=== PATIENT | female | born 1965 | race Caucasian/White ===

== ENCOUNTER 2016-08-27 | Inpatient (IN) | END 2017-08-26 23:59 | disposition still patient (30) | DRG 133 | DX: J96.10 Chronic respiratory failure, unspecified whether with hypoxia or hypercapnia (principal); G93.1 Anoxic brain damage, not elsewhere classified; R40.3 Persistent vegetative state; J18.9 Pneumonia, unspecified organism; Z93.0 Tracheostomy status; Z93.1 Gastrostomy status; N39.0 Urinary tract infection, site not specified; K27.9 Peptic ulcer, site unspecified, unspecified as acute or chronic, without hemorrhage or perforation; B95.61 Methicillin susceptible Staphylococcus aureus infection as the cause of diseases classified elsewhere; I25.10 Atherosclerotic heart disease of native coronary artery without angina pectoris; Z86.74 Personal history of sudden cardiac arrest; F19.21 Other psychoactive substance dependence, in remission; K59.00 Constipation, unspecified; G40.909 Epilepsy, unspecified, not intractable, without status epilepticus; M24.50 Contracture, unspecified joint ==

== ENCOUNTER 2017-08-27 | Inpatient (IN) | payer MEDICAID ==
[~2017-08-27] VITALS: Ht 160 cm; Wt 69.4 kg
[2017-08-28 08:00] VITALS: BP 120/79
[2017-08-28] MEDS ORDERED: CALMOSEPTINE 113 GM OINTMENT TP PRN (12:00)
[2017-08-28] MEDS ORDERED: ACETAMINOPHEN 650 MG/20 ML UDC- SA PATIENTS-PAIN ONLY GT PRN ×2 (12:00)
[2017-08-28] MEDS ORDERED: HYDROGEN PEROXIDE 3% TP PRN (12:00)
[2017-08-28] MEDS ORDERED: ALBUTEROL SULFATE 2.5 MG/3 ML NEBU NEB SCH (15:30)
[2017-08-28] MEDS: IPRATROPIUM BROMIDE 0.5 MG/2.5 ML NEBU NEB SCH ×3 (15:49→23:00)
[2017-08-28] MEDS: ALBUTEROL SULFATE 2.5 MG/3 ML NEBU NEB SCH ×3 (15:58→23:00)
[2017-08-28] MEDS: BUDESONIDE 0.5 MG/2 ML NEBU NEB SCH (19:50)
[2017-08-28] MEDS: COD LIVER OIL/ZINC OXIDE OINT 113 GM TUBE TP SCH (21:22)
[2017-08-28] MEDS: CALMOSEPTINE 113 GM OINTMENT TP SCH (21:22)
[2017-08-28] MEDS: NUTRISOURCE FIBER 4 GM PACKET GT SCH (21:22)
[2017-08-28] MEDS: ATORVASTATIN 10 MG TABLET GT SCH (21:22)
[2017-08-28] MEDS: CALCIUM CARBONATE 500 MG TABLET GT SCH (21:22)
[2017-08-28] MEDS: HYDROGEN PEROXIDE 3% 118 ML BOTTLE TP SCH (21:22)
[2017-08-28] MEDS: BACLOFEN 10 MG TABLET GT SCH (21:23)
[2017-08-29 00:10] VITALS: BP 102/66
[2017-08-29] MEDS: IPRATROPIUM BROMIDE 0.5 MG/2.5 ML NEBU NEB SCH ×6 (03:11→22:40)
[2017-08-29] MEDS: ALBUTEROL SULFATE 2.5 MG/3 ML NEBU NEB SCH ×6 (03:11→22:40)
[2017-08-29] MEDS: CHOLECALCIFEROL 1,000 UNIT TABLET GT SCH (06:20)
[2017-08-29] MEDS: BACLOFEN 10 MG TABLET GT SCH ×3 (06:20→21:56)
[2017-08-29] MEDS: BUDESONIDE 0.5 MG/2 ML NEBU NEB SCH ×2 (07:07→19:42)
[2017-08-29 08:00] VITALS: BP 122/78
[2017-08-29] MEDS: MIRALAX 17 GM POWD.PACK GT SCH (09:00)
[2017-08-29] MEDS: NUTRISOURCE FIBER 4 GM PACKET GT SCH ×2 (09:00→21:54)
[2017-08-29] MEDS: NYSTATIN CREAM 30 GM TUBE TP SCH (09:00)
[2017-08-29] MEDS: CALMOSEPTINE 113 GM OINTMENT TP SCH ×2 (09:00→21:55)
[2017-08-29] MEDS: COD LIVER OIL/ZINC OXIDE OINT 113 GM TUBE TP SCH ×2 (09:00→21:55)
[2017-08-29] MEDS: HYDROGEN PEROXIDE 3% 118 ML BOTTLE TP SCH ×2 (09:00→21:56)
[2017-08-29] MEDS: CALCIUM CARBONATE 500 MG TABLET GT SCH ×2 (09:00→21:55)
[2017-08-29] MEDS: ATORVASTATIN 10 MG TABLET GT SCH (21:54)
[2017-08-29] MEDS: MULTIVITS W-FE,OTHER MIN 15 ML UDC GT SCH (21:55)
[2017-08-30] MEDS: IPRATROPIUM BROMIDE 0.5 MG/2.5 ML NEBU NEB SCH ×6 (03:16→22:46)
[2017-08-30] MEDS: ALBUTEROL SULFATE 2.5 MG/3 ML NEBU NEB SCH ×6 (03:16→22:46)
[2017-08-30] MEDS: BACLOFEN 10 MG TABLET GT SCH ×3 (05:05→22:00)
[2017-08-30] MEDS: CHOLECALCIFEROL 1,000 UNIT TABLET GT SCH (06:37)
[2017-08-30 08:00] VITALS: BP 117/85
[2017-08-30] MEDS: BUDESONIDE 0.5 MG/2 ML NEBU NEB SCH ×2 (08:02→20:11)
[2017-08-30] MEDS: CALCIUM CARBONATE 500 MG TABLET GT SCH ×2 (09:48→20:56)
[2017-08-30] MEDS: HYDROGEN PEROXIDE 3% 118 ML BOTTLE TP SCH ×2 (09:48→20:56)
[2017-08-30] MEDS: MIRALAX 17 GM POWD.PACK GT SCH (09:48)
[2017-08-30] MEDS: NYSTATIN CREAM 30 GM TUBE TP SCH (09:48)
[2017-08-30] MEDS: NUTRISOURCE FIBER 4 GM PACKET GT SCH ×2 (09:48→20:56)
[2017-08-30] MEDS: CALMOSEPTINE 113 GM OINTMENT TP SCH ×2 (09:48→20:56)
[2017-08-30] MEDS: COD LIVER OIL/ZINC OXIDE OINT 113 GM TUBE TP SCH ×2 (09:48→20:56)
--- NOTE | 2017-08-30 16:03 | NUR ---
JO-ANN spoke with Karishma at Dr. Tariq's office [phone] and scheduled patient's annual eye exam for 09/10/2017.
[2017-08-30] MEDS: FIBERSOURCE HN 1000ML LIQUID GT PRN (20:56)
[2017-08-30] MEDS: ATORVASTATIN 10 MG TABLET GT SCH (20:56)
[2017-08-30 23:37] VITALS: BP 128/81
[2017-08-31] MEDS: IPRATROPIUM BROMIDE 0.5 MG/2.5 ML NEBU NEB SCH ×6 (02:30→22:50)
[2017-08-31] MEDS: ALBUTEROL SULFATE 2.5 MG/3 ML NEBU NEB SCH ×6 (02:30→22:50)
[2017-08-31] MEDS: BACLOFEN 10 MG TABLET GT SCH ×3 (05:39→21:28)
[2017-08-31] MEDS: CHOLECALCIFEROL 1,000 UNIT TABLET GT SCH (05:39)
[2017-08-31] MEDS: BUDESONIDE 0.5 MG/2 ML NEBU NEB SCH ×2 (07:56→19:37)
[2017-08-31 08:00] VITALS: BP 104/70
[2017-08-31] MEDS: MIRALAX 17 GM POWD.PACK GT SCH (08:53)
[2017-08-31] MEDS: NUTRISOURCE FIBER 4 GM PACKET GT SCH ×2 (08:53→21:13)
[2017-08-31] MEDS: CALCIUM CARBONATE 500 MG TABLET GT SCH ×2 (08:53→21:13)
[2017-08-31] MEDS: HYDROGEN PEROXIDE 3% 118 ML BOTTLE TP SCH ×2 (08:54→21:13)
[2017-08-31] MEDS: COD LIVER OIL/ZINC OXIDE OINT 113 GM TUBE TP SCH ×2 (08:54→21:13)
[2017-08-31] MEDS: NYSTATIN CREAM 30 GM TUBE TP SCH (08:54)
[2017-08-31] MEDS: CALMOSEPTINE 113 GM OINTMENT TP SCH ×2 (08:54→21:13)
[2017-08-31 20:34] VITALS: BP 113/66
[2017-08-31] MEDS: ATORVASTATIN 10 MG TABLET GT SCH (21:13)
[2017-08-31] MEDS: MULTIVITS W-FE,OTHER MIN 15 ML UDC GT SCH (21:13)
[2017-09-01] MEDS: ALBUTEROL SULFATE 2.5 MG/3 ML NEBU NEB SCH ×6 (03:17→22:55)
[2017-09-01] MEDS: IPRATROPIUM BROMIDE 0.5 MG/2.5 ML NEBU NEB SCH ×6 (03:17→22:55)
[2017-09-01] MEDS: BACLOFEN 10 MG TABLET GT SCH ×3 (05:32→21:41)
[2017-09-01] MEDS: CHOLECALCIFEROL 1,000 UNIT TABLET GT SCH (05:33)
[2017-09-01] MEDS: FIBERSOURCE HN 1000ML LIQUID GT PRN (05:39)
[2017-09-01 08:00] VITALS: BP 124/70
[2017-09-01] MEDS: BUDESONIDE 0.5 MG/2 ML NEBU NEB SCH ×2 (08:20→20:05)
[2017-09-01] MEDS: CALMOSEPTINE 113 GM OINTMENT TP SCH ×2 (09:00→21:41)
[2017-09-01] MEDS: NYSTATIN CREAM 30 GM TUBE TP SCH (09:00)
[2017-09-01] MEDS: COD LIVER OIL/ZINC OXIDE OINT 113 GM TUBE TP SCH ×2 (09:00→21:41)
[2017-09-01] MEDS: MIRALAX 17 GM POWD.PACK GT SCH (09:00)
[2017-09-01] MEDS: HYDROGEN PEROXIDE 3% 118 ML BOTTLE TP SCH ×2 (09:00→21:41)
[2017-09-01] MEDS: NUTRISOURCE FIBER 4 GM PACKET GT SCH ×2 (09:00→21:40)
[2017-09-01] MEDS: CALCIUM CARBONATE 500 MG TABLET GT SCH ×2 (09:00→21:40)
[2017-09-01 20:32] VITALS: BP 110/76
[2017-09-01] MEDS: ATORVASTATIN 10 MG TABLET GT SCH (21:40)
[2017-09-02] MEDS: IPRATROPIUM BROMIDE 0.5 MG/2.5 ML NEBU NEB SCH ×6 (04:35→22:50)
[2017-09-02] MEDS: ALBUTEROL SULFATE 2.5 MG/3 ML NEBU NEB SCH ×6 (04:35→22:50)
[2017-09-02] MEDS: CHOLECALCIFEROL 1,000 UNIT TABLET GT SCH (06:06)
[2017-09-02] MEDS: BACLOFEN 10 MG TABLET GT SCH ×3 (06:06→22:24)
[2017-09-02 08:00] VITALS: BP 120/74
[2017-09-02] MEDS: BUDESONIDE 0.5 MG/2 ML NEBU NEB SCH ×2 (08:11→20:04)
[2017-09-02] MEDS: COD LIVER OIL/ZINC OXIDE OINT 113 GM TUBE TP SCH ×2 (09:59→21:00)
[2017-09-02] MEDS: MIRALAX 17 GM POWD.PACK GT SCH (09:59)
[2017-09-02] MEDS: CALCIUM CARBONATE 500 MG TABLET GT SCH ×2 (09:59→21:00)
[2017-09-02] MEDS: NUTRISOURCE FIBER 4 GM PACKET GT SCH ×2 (09:59→21:00)
[2017-09-02] MEDS: HYDROGEN PEROXIDE 3% 118 ML BOTTLE TP SCH ×2 (09:59→21:00)
[2017-09-02] MEDS: CALMOSEPTINE 113 GM OINTMENT TP SCH ×2 (09:59→21:00)
[2017-09-02 20:24] VITALS: BP 102/67
[2017-09-02] MEDS: MULTIVITS W-FE,OTHER MIN 15 ML UDC GT SCH (21:00)
[2017-09-02] MEDS: ATORVASTATIN 10 MG TABLET GT SCH (21:00)
[2017-09-03] MEDS: ALBUTEROL SULFATE 2.5 MG/3 ML NEBU NEB SCH ×6 (03:10→22:41)
[2017-09-03] MEDS: IPRATROPIUM BROMIDE 0.5 MG/2.5 ML NEBU NEB SCH ×6 (03:10→22:41)
[2017-09-03] MEDS: BACLOFEN 10 MG TABLET GT SCH ×3 (06:17→22:10)
[2017-09-03] MEDS: CHOLECALCIFEROL 1,000 UNIT TABLET GT SCH (06:17)
[2017-09-03] MEDS: BUDESONIDE 0.5 MG/2 ML NEBU NEB SCH ×2 (07:07→20:01)
[2017-09-03 08:00] VITALS: BP 105/66
[2017-09-03] MEDS: MIRALAX 17 GM POWD.PACK GT SCH (09:00)
[2017-09-03] MEDS: CALCIUM CARBONATE 500 MG TABLET GT SCH ×2 (09:48→21:00)
[2017-09-03] MEDS: CALMOSEPTINE 113 GM OINTMENT TP SCH ×2 (09:48→21:00)
[2017-09-03] MEDS: NUTRISOURCE FIBER 4 GM PACKET GT SCH ×2 (09:48→21:00)
[2017-09-03] MEDS: COD LIVER OIL/ZINC OXIDE OINT 113 GM TUBE TP SCH ×2 (09:48→21:00)
[2017-09-03] MEDS: HYDROGEN PEROXIDE 3% 118 ML BOTTLE TP SCH ×2 (09:48→21:00)
--- NOTE | 2017-09-03 14:00 | NUR ---
NEW ORDER FROM GARETH Goode CARRIED OUT.
--- NOTE | 2017-09-03 15:05 | NUR ---
SEEN BY GARETH JETER.
[2017-09-03] MEDS: NYSTATIN CREAM 30 GM TUBE TP SCH (17:29)
[2017-09-03] MEDS: ATORVASTATIN 10 MG TABLET GT SCH (21:00)
[2017-09-04 01:28] VITALS: BP 113/73
[2017-09-04] MEDS: ALBUTEROL SULFATE 2.5 MG/3 ML NEBU NEB SCH ×6 (02:40→22:42)
[2017-09-04] MEDS: IPRATROPIUM BROMIDE 0.5 MG/2.5 ML NEBU NEB SCH ×6 (02:40→22:41)
[2017-09-04] MEDS: CHOLECALCIFEROL 1,000 UNIT TABLET GT SCH (06:45)
[2017-09-04] MEDS: BACLOFEN 10 MG TABLET GT SCH ×3 (06:45→21:44)
[2017-09-04] MEDS: BUDESONIDE 0.5 MG/2 ML NEBU NEB SCH ×2 (06:55→20:24)
--- NOTE | 2017-09-04 07:30 | NUR ---
SEEN BY FRANCIA MEADE N.P. AND WITH NNO.
[2017-09-04] MEDS: COD LIVER OIL/ZINC OXIDE OINT 113 GM TUBE TP SCH ×2 (09:30→21:44)
[2017-09-04] MEDS: CALCIUM CARBONATE 500 MG TABLET GT SCH ×2 (09:30→21:44)
[2017-09-04] MEDS: NUTRISOURCE FIBER 4 GM PACKET GT SCH ×2 (09:30→21:44)
[2017-09-04] MEDS: HYDROGEN PEROXIDE 3% 118 ML BOTTLE TP SCH ×2 (09:30→21:44)
[2017-09-04] MEDS: CALMOSEPTINE 113 GM OINTMENT TP SCH ×2 (09:30→21:44)
[2017-09-04] MEDS: NYSTATIN CREAM 30 GM TUBE TP SCH (09:31)
[2017-09-04 11:16] VITALS: BP 118/73
--- NOTE | 2017-09-04 13:07 | NUR ---
Pharmacy Update from Today's 09/04/17 IDT Meeting: VS: Temp 98.3 BP 115/76 HR 73 LABS: (from 02/20/17, no new) Wbc 5.4H/H 13.5/40.8Plt 139 Na 141K 3.5Cl 104CO2 31BUN/SCr BS 127 MEDICATION USE REVIEWED: > Pt not on any anti-psych or anti-seizure medications > PRN MED USAGE: (Dec) Tylenol for pain used x 0 Tylenol for temp used x 0 NEW ORDERS NOTED: > Clotrimazole cream for left buttocks rash 07/29 x 21 days > Nystatin cream for left ear fungal rash x 7 days starting 08/26 > Miralax PRN d/c'd Pt was reviewed and discussed in depth, no medication concerns or issues reported at this time, will continue to follow
--- NOTE | 2017-09-04 14:30 | NUR ---
SEEN BY GARETH JETER.
[2017-09-04] MEDS: FIBERSOURCE HN 1000ML LIQUID GT PRN (15:15)
--- NOTE | 2017-09-04 15:25 | NUR ---
INTERDISCIPLINARY PLAN OF CARE CONFERENCE was held today. Patient's family was unable to attend the meeting due to living [id number]. Dr. Underwood and the Interdisciplinary Team reviewed the current plan of care in detail. RN provided updates on patient's medical condition. No major changes were reported at this time. See RN IDT conference notes. See also all other disciplines IDT notes and physician's progress notes for additional details.
[2017-09-04 20:00] VITALS: BP 114/73
[2017-09-04] MEDS: MULTIVITS W-FE,OTHER MIN 15 ML UDC GT SCH (21:44)
[2017-09-04] MEDS: ATORVASTATIN 10 MG TABLET GT SCH (21:44)
[2017-09-05] MEDS: IPRATROPIUM BROMIDE 0.5 MG/2.5 ML NEBU NEB SCH ×6 (03:20→22:33)
[2017-09-05] MEDS: ALBUTEROL SULFATE 2.5 MG/3 ML NEBU NEB SCH ×6 (03:20→22:33)
[2017-09-05] MEDS: BACLOFEN 10 MG TABLET GT SCH ×3 (05:08→21:47)
[2017-09-05] MEDS: CHOLECALCIFEROL 1,000 UNIT TABLET GT SCH (05:41)
[2017-09-05] MEDS: BUDESONIDE 0.5 MG/2 ML NEBU NEB SCH ×2 (08:19→20:00)
[2017-09-05] MEDS: NUTRISOURCE FIBER 4 GM PACKET GT SCH ×2 (09:54→21:47)
[2017-09-05] MEDS: NYSTATIN CREAM 30 GM TUBE TP SCH ×2 (09:54→17:00)
[2017-09-05] MEDS: HYDROGEN PEROXIDE 3% 118 ML BOTTLE TP SCH ×2 (09:54→21:47)
[2017-09-05] MEDS: CALMOSEPTINE 113 GM OINTMENT TP SCH ×2 (09:54→21:47)
[2017-09-05] MEDS: CALCIUM CARBONATE 500 MG TABLET GT SCH ×2 (09:54→21:47)
[2017-09-05] MEDS: COD LIVER OIL/ZINC OXIDE OINT 113 GM TUBE TP SCH ×2 (09:54→21:47)
[2017-09-05 11:01] VITALS: BP 121/72
--- NOTE | 2017-09-05 16:48 | NUR ---
SW mailed the annual admission paperwork, which includes Conditions of Admission, Patient's Rights Acknowledgement, Voluntary Prior Express Consent Form, Documentation of Preferred Intensity of Care, and the [facility] Admission Agreement, to patient's sister Dione Martins for signatures. Instructions provided on how to review and sign the papers. Address mailed to: [address], [place] [address]
[2017-09-05 20:00] VITALS: BP 127/67
[2017-09-05] MEDS: ATORVASTATIN 10 MG TABLET GT SCH (21:47)
[2017-09-06] MEDS: ALBUTEROL SULFATE 2.5 MG/3 ML NEBU NEB SCH ×6 (02:30→22:52)
[2017-09-06] MEDS: IPRATROPIUM BROMIDE 0.5 MG/2.5 ML NEBU NEB SCH ×6 (02:30→22:52)
[2017-09-06] MEDS: CHOLECALCIFEROL 1,000 UNIT TABLET GT SCH (05:56)
[2017-09-06] MEDS: BACLOFEN 10 MG TABLET GT SCH ×3 (05:56→21:56)
[2017-09-06] MEDS: BUDESONIDE 0.5 MG/2 ML NEBU NEB SCH ×2 (07:39→20:04)
[2017-09-06 08:09] VITALS: BP 90/58
[2017-09-06] MEDS: CALMOSEPTINE 113 GM OINTMENT TP SCH ×2 (09:56→21:55)
[2017-09-06] MEDS: CALCIUM CARBONATE 500 MG TABLET GT SCH ×2 (09:56→21:55)
[2017-09-06] MEDS: NUTRISOURCE FIBER 4 GM PACKET GT SCH ×2 (09:56→21:55)
[2017-09-06] MEDS: NYSTATIN CREAM 30 GM TUBE TP SCH ×3 (09:56→21:55)
[2017-09-06] MEDS: COD LIVER OIL/ZINC OXIDE OINT 113 GM TUBE TP SCH (09:56)
[2017-09-06] MEDS: HYDROGEN PEROXIDE 3% 118 ML BOTTLE TP SCH ×2 (09:56→21:55)
[2017-09-06 20:00] VITALS: BP 101/61
[2017-09-06] MEDS: ATORVASTATIN 10 MG TABLET GT SCH (21:55)
[2017-09-06] MEDS: MULTIVITS W-FE,OTHER MIN 15 ML UDC GT SCH (21:55)
[2017-09-06] MEDS: FIBERSOURCE HN 1000ML LIQUID GT PRN (21:59)
[2017-09-07] MEDS: IPRATROPIUM BROMIDE 0.5 MG/2.5 ML NEBU NEB SCH ×6 (02:40→22:50)
[2017-09-07] MEDS: ALBUTEROL SULFATE 2.5 MG/3 ML NEBU NEB SCH ×6 (02:40→22:50)
--- NOTE | 2017-09-07 03:14 | NUR ---
CLARIFICATION OF MULTIVITAMIN WITH MIN ORDER: MULTIVITAMIN WITH MINERALS 1 TAB VIA GT EVERY 48 HRS AT 21.00 NOTED.
[2017-09-07] MEDS: BACLOFEN 10 MG TABLET GT SCH ×3 (05:41→21:36)
[2017-09-07] MEDS: CHOLECALCIFEROL 1,000 UNIT TABLET GT SCH (05:41)
[2017-09-07 08:05] VITALS: BP 117/80
[2017-09-07] MEDS: BUDESONIDE 0.5 MG/2 ML NEBU NEB SCH ×2 (08:27→19:30)
[2017-09-07] MEDS: HYDROGEN PEROXIDE 3% 118 ML BOTTLE TP SCH ×2 (09:19→21:36)
[2017-09-07] MEDS: CALMOSEPTINE 113 GM OINTMENT TP SCH ×2 (09:19→21:36)
[2017-09-07] MEDS: CALCIUM CARBONATE 500 MG TABLET GT SCH ×2 (09:19→21:36)
[2017-09-07] MEDS: NYSTATIN CREAM 30 GM TUBE TP SCH ×2 (09:19→21:36)
[2017-09-07] MEDS: NUTRISOURCE FIBER 4 GM PACKET GT SCH ×2 (09:19→21:36)
[2017-09-07 20:00] VITALS: BP 129/65
[2017-09-07] MEDS: MULTIVIT, IRON, MIN NO. 8, FA TABLET GT SCH (21:36)
[2017-09-07] MEDS: ATORVASTATIN 10 MG TABLET GT SCH (21:36)
[2017-09-07] MEDS: FIBERSOURCE HN 1000ML LIQUID GT PRN (21:36)
[2017-09-08] MEDS: IPRATROPIUM BROMIDE 0.5 MG/2.5 ML NEBU NEB SCH ×6 (02:40→22:30)
[2017-09-08] MEDS: ALBUTEROL SULFATE 2.5 MG/3 ML NEBU NEB SCH ×6 (02:40→22:30)
[2017-09-08] MEDS: BACLOFEN 10 MG TABLET GT SCH ×3 (05:13→21:02)
[2017-09-08] MEDS: CHOLECALCIFEROL 1,000 UNIT TABLET GT SCH (05:31)
[2017-09-08 08:06] VITALS: BP 123/81
[2017-09-08] MEDS: BUDESONIDE 0.5 MG/2 ML NEBU NEB SCH ×2 (08:07→19:50)
[2017-09-08] MEDS: CALCIUM CARBONATE 500 MG TABLET GT SCH ×2 (08:25→21:02)
[2017-09-08] MEDS: NUTRISOURCE FIBER 4 GM PACKET GT SCH ×2 (08:25→21:02)
[2017-09-08] MEDS: HYDROGEN PEROXIDE 3% 118 ML BOTTLE TP SCH ×2 (08:26→21:02)
[2017-09-08] MEDS: NYSTATIN CREAM 30 GM TUBE TP SCH ×2 (08:26→21:02)
[2017-09-08] MEDS: CALMOSEPTINE 113 GM OINTMENT TP SCH ×2 (08:26→21:02)
[2017-09-08 20:00] VITALS: BP 115/76
[2017-09-08] MEDS: ATORVASTATIN 10 MG TABLET GT SCH (21:02)
[2017-09-08] MEDS: FIBERSOURCE HN 1000ML LIQUID GT PRN (22:41)
[2017-09-09] MEDS: ALBUTEROL SULFATE 2.5 MG/3 ML NEBU NEB SCH ×6 (02:31→22:50)
[2017-09-09] MEDS: IPRATROPIUM BROMIDE 0.5 MG/2.5 ML NEBU NEB SCH ×6 (02:31→22:50)
[2017-09-09] MEDS: BACLOFEN 10 MG TABLET GT SCH ×3 (05:15→22:30)
[2017-09-09] MEDS: CHOLECALCIFEROL 1,000 UNIT TABLET GT SCH (05:37)
[2017-09-09] MEDS: BUDESONIDE 0.5 MG/2 ML NEBU NEB SCH ×2 (07:40→19:50)
[2017-09-09 08:00] VITALS: BP 109/71
[2017-09-09] MEDS: HYDROGEN PEROXIDE 3% 118 ML BOTTLE TP SCH ×2 (08:43→20:09)
[2017-09-09] MEDS: CALCIUM CARBONATE 500 MG TABLET GT SCH ×2 (08:43→20:09)
[2017-09-09] MEDS: NUTRISOURCE FIBER 4 GM PACKET GT SCH ×2 (08:43→20:09)
[2017-09-09] MEDS: CALMOSEPTINE 113 GM OINTMENT TP SCH ×2 (08:43→20:09)
[2017-09-09] MEDS: NYSTATIN CREAM 30 GM TUBE TP SCH ×2 (08:43→20:09)
[2017-09-09] MEDS: MULTIVIT, IRON, MIN NO. 8, FA TABLET GT SCH (20:09)
[2017-09-09] MEDS: ATORVASTATIN 10 MG TABLET GT SCH (20:09)
[2017-09-09 20:45] VITALS: BP 129/74
[2017-09-10] MEDS: ALBUTEROL SULFATE 2.5 MG/3 ML NEBU NEB SCH ×6 (02:40→22:50)
[2017-09-10] MEDS: IPRATROPIUM BROMIDE 0.5 MG/2.5 ML NEBU NEB SCH ×6 (02:40→22:50)
[2017-09-10] MEDS: CHOLECALCIFEROL 1,000 UNIT TABLET GT SCH (05:42)
[2017-09-10] MEDS: BACLOFEN 10 MG TABLET GT SCH ×3 (05:42→21:48)
[2017-09-10] MEDS: FIBERSOURCE HN 1000ML LIQUID GT PRN (06:44)
[2017-09-10] MEDS: BUDESONIDE 0.5 MG/2 ML NEBU NEB SCH ×2 (07:10→19:26)
[2017-09-10 08:00] VITALS: BP 114/79
[2017-09-10] MEDS: NUTRISOURCE FIBER 4 GM PACKET GT SCH ×2 (08:58→20:41)
[2017-09-10] MEDS: HYDROGEN PEROXIDE 3% 118 ML BOTTLE TP SCH ×2 (08:58→20:41)
[2017-09-10] MEDS: NYSTATIN CREAM 30 GM TUBE TP SCH ×2 (08:58→20:41)
[2017-09-10] MEDS: CALCIUM CARBONATE 500 MG TABLET GT SCH ×2 (08:58→20:41)
[2017-09-10] MEDS: CALMOSEPTINE 113 GM OINTMENT TP SCH ×2 (08:58→20:41)
--- NOTE | 2017-09-10 09:41 | NUR ---
SEEN BY CORONA EMMANUEL.
--- NOTE | 2017-09-10 16:11 | NUR ---
Patient seen today by Dr. Tariq for her annual eye exam. See optometry notes in chart for details.
[2017-09-10] MEDS: ATORVASTATIN 10 MG TABLET GT SCH (20:41)
[2017-09-10 21:11] VITALS: BP 126/75
[2017-09-11] MEDS: IPRATROPIUM BROMIDE 0.5 MG/2.5 ML NEBU NEB SCH ×6 (02:40→22:48)
[2017-09-11] MEDS: ALBUTEROL SULFATE 2.5 MG/3 ML NEBU NEB SCH ×6 (02:40→22:48)
[2017-09-11] MEDS: CHOLECALCIFEROL 1,000 UNIT TABLET GT SCH (05:43)
[2017-09-11] MEDS: BACLOFEN 10 MG TABLET GT SCH ×3 (05:43→22:00)
[2017-09-11] MEDS: BUDESONIDE 0.5 MG/2 ML NEBU NEB SCH ×2 (07:51→18:53)
[2017-09-11] MEDS: HYDROGEN PEROXIDE 3% 118 ML BOTTLE TP SCH ×2 (09:23→20:52)
[2017-09-11] MEDS: NUTRISOURCE FIBER 4 GM PACKET GT SCH ×2 (09:23→20:52)
[2017-09-11] MEDS: CALMOSEPTINE 113 GM OINTMENT TP SCH ×2 (09:23→20:52)
[2017-09-11] MEDS: CALCIUM CARBONATE 500 MG TABLET GT SCH ×2 (09:23→20:52)
[2017-09-11] MEDS: NYSTATIN CREAM 30 GM TUBE TP SCH ×2 (09:24→20:52)
[2017-09-11] MEDS: FIBERSOURCE HN 1000ML LIQUID GT PRN (12:52)
--- NOTE | 2017-09-11 16:00 | NUR ---
SEEN BY DR GARETH LU,NO NEW ORDERS NOTED.
[2017-09-11 20:43] VITALS: BP 113/68
[2017-09-11] MEDS: MULTIVIT, IRON, MIN NO. 8, FA TABLET GT SCH (20:52)
[2017-09-11] MEDS: ATORVASTATIN 10 MG TABLET GT SCH (20:52)
[2017-09-12] MEDS: IPRATROPIUM BROMIDE 0.5 MG/2.5 ML NEBU NEB SCH ×6 (02:51→23:31)
[2017-09-12] MEDS: ALBUTEROL SULFATE 2.5 MG/3 ML NEBU NEB SCH ×6 (02:51→23:31)
[2017-09-12] MEDS: CHOLECALCIFEROL 1,000 UNIT TABLET GT SCH (05:50)
[2017-09-12] MEDS: BACLOFEN 10 MG TABLET GT SCH ×3 (05:50→21:06)
[2017-09-12] MEDS: BUDESONIDE 0.5 MG/2 ML NEBU NEB SCH ×2 (07:57→20:21)
[2017-09-12 08:04] VITALS: BP 115/72
[2017-09-12] MEDS: CALMOSEPTINE 113 GM OINTMENT TP SCH ×2 (09:23→21:06)
[2017-09-12] MEDS: CALCIUM CARBONATE 500 MG TABLET GT SCH ×2 (09:23→21:06)
[2017-09-12] MEDS: NUTRISOURCE FIBER 4 GM PACKET GT SCH ×2 (09:23→21:06)
[2017-09-12] MEDS: NYSTATIN CREAM 30 GM TUBE TP SCH ×2 (09:24→21:06)
[2017-09-12] MEDS: HYDROGEN PEROXIDE 3% 118 ML BOTTLE TP SCH ×2 (09:24→21:06)
--- NOTE | 2017-09-12 16:30 | NUR ---
SEEN AND EXAMINED BY DR DOMINGUEZ,NO NEW ORDERS NOTED.
--- NOTE | 2017-09-12 17:46 | NUR ---
SEEN AND EXAMINED BY DR REAVES,NO NEW ORDERS NOTED.
[2017-09-12 20:10] VITALS: BP 123/69
[2017-09-12] MEDS: ATORVASTATIN 10 MG TABLET GT SCH (21:06)
[2017-09-13] MEDS: ALBUTEROL SULFATE 2.5 MG/3 ML NEBU NEB SCH ×6 (02:42→23:00)
[2017-09-13] MEDS: IPRATROPIUM BROMIDE 0.5 MG/2.5 ML NEBU NEB SCH ×6 (02:42→23:00)
[2017-09-13] MEDS: CHOLECALCIFEROL 1,000 UNIT TABLET GT SCH (05:32)
[2017-09-13] MEDS: BACLOFEN 10 MG TABLET GT SCH ×3 (05:32→21:16)
[2017-09-13 08:07] VITALS: BP 102/71
[2017-09-13] MEDS: BUDESONIDE 0.5 MG/2 ML NEBU NEB SCH ×2 (08:07→19:55)
[2017-09-13] MEDS: CALMOSEPTINE 113 GM OINTMENT TP SCH ×2 (09:45→21:16)
[2017-09-13] MEDS: NUTRISOURCE FIBER 4 GM PACKET GT SCH ×2 (09:45→21:15)
[2017-09-13] MEDS: HYDROGEN PEROXIDE 3% 118 ML BOTTLE TP SCH ×2 (09:45→21:16)
[2017-09-13] MEDS: CALCIUM CARBONATE 500 MG TABLET GT SCH ×2 (09:45→21:15)
[2017-09-13] MEDS: NYSTATIN CREAM 30 GM TUBE TP SCH ×2 (09:46→21:16)
[2017-09-13 20:18] VITALS: BP 126/70
[2017-09-13] MEDS: MULTIVIT, IRON, MIN NO. 8, FA TABLET GT SCH (21:15)
[2017-09-13] MEDS: ATORVASTATIN 10 MG TABLET GT SCH (21:15)
[2017-09-13] MEDS: FIBERSOURCE HN 1000ML LIQUID GT PRN (21:17)
[2017-09-14] MEDS: ALBUTEROL SULFATE 2.5 MG/3 ML NEBU NEB SCH ×6 (03:10→22:47)
[2017-09-14] MEDS: IPRATROPIUM BROMIDE 0.5 MG/2.5 ML NEBU NEB SCH ×6 (03:10→22:47)
[2017-09-14] MEDS: BACLOFEN 10 MG TABLET GT SCH ×3 (05:16→21:46)
[2017-09-14] MEDS: CHOLECALCIFEROL 1,000 UNIT TABLET GT SCH (05:38)
[2017-09-14] MEDS: BUDESONIDE 0.5 MG/2 ML NEBU NEB SCH ×2 (06:53→19:45)
[2017-09-14 08:04] VITALS: BP 92/58
[2017-09-14] MEDS: NUTRISOURCE FIBER 4 GM PACKET GT SCH ×2 (08:22→21:46)
[2017-09-14] MEDS: CALCIUM CARBONATE 500 MG TABLET GT SCH ×2 (08:22→21:46)
[2017-09-14] MEDS: HYDROGEN PEROXIDE 3% 118 ML BOTTLE TP SCH ×2 (08:22→21:46)
[2017-09-14] MEDS: CALMOSEPTINE 113 GM OINTMENT TP SCH ×2 (08:22→21:46)
[2017-09-14] MEDS: NYSTATIN CREAM 30 GM TUBE TP SCH ×2 (08:23→21:46)
[2017-09-14 20:17] VITALS: BP 129/73
[2017-09-14] MEDS: ATORVASTATIN 10 MG TABLET GT SCH (21:46)
[2017-09-15] MEDS: ALBUTEROL SULFATE 2.5 MG/3 ML NEBU NEB SCH ×6 (03:02→22:51)
[2017-09-15] MEDS: IPRATROPIUM BROMIDE 0.5 MG/2.5 ML NEBU NEB SCH ×6 (03:02→22:51)
[2017-09-15] MEDS: FIBERSOURCE HN 1000ML LIQUID GT PRN (03:05)
[2017-09-15] MEDS: BACLOFEN 10 MG TABLET GT SCH ×3 (05:24→21:27)
[2017-09-15] MEDS: CHOLECALCIFEROL 1,000 UNIT TABLET GT SCH (05:32)
[2017-09-15 08:04] VITALS: BP 96/59
[2017-09-15] MEDS: NYSTATIN CREAM 30 GM TUBE TP SCH ×2 (08:07→21:27)
[2017-09-15] MEDS: NUTRISOURCE FIBER 4 GM PACKET GT SCH ×2 (08:07→21:27)
[2017-09-15] MEDS: HYDROGEN PEROXIDE 3% 118 ML BOTTLE TP SCH ×2 (08:07→21:27)
[2017-09-15] MEDS: CALMOSEPTINE 113 GM OINTMENT TP SCH ×2 (08:07→21:27)
[2017-09-15] MEDS: CALCIUM CARBONATE 500 MG TABLET GT SCH ×2 (08:07→21:27)
[2017-09-15] MEDS: BUDESONIDE 0.5 MG/2 ML NEBU NEB SCH ×2 (08:20→19:24)
[2017-09-15 20:15] VITALS: BP 118/69
[2017-09-15] MEDS: ATORVASTATIN 10 MG TABLET GT SCH (21:27)
[2017-09-15] MEDS: MULTIVIT, IRON, MIN NO. 8, FA TABLET GT SCH (21:27)
[2017-09-16] MEDS: IPRATROPIUM BROMIDE 0.5 MG/2.5 ML NEBU NEB SCH ×6 (02:40→22:40)
[2017-09-16] MEDS: ALBUTEROL SULFATE 2.5 MG/3 ML NEBU NEB SCH ×6 (02:40→22:40)
[2017-09-16] MEDS: BACLOFEN 10 MG TABLET GT SCH ×3 (05:38→22:18)
[2017-09-16] MEDS: CHOLECALCIFEROL 1,000 UNIT TABLET GT SCH (05:38)
[2017-09-16] MEDS: BUDESONIDE 0.5 MG/2 ML NEBU NEB SCH ×2 (07:42→19:42)
[2017-09-16 08:06] VITALS: BP 110/60
[2017-09-16] MEDS: CALMOSEPTINE 113 GM OINTMENT TP SCH ×2 (08:19→21:00)
[2017-09-16] MEDS: HYDROGEN PEROXIDE 3% 118 ML BOTTLE TP SCH ×2 (08:19→21:00)
[2017-09-16] MEDS: NYSTATIN CREAM 30 GM TUBE TP SCH ×2 (08:19→21:00)
[2017-09-16] MEDS: CALCIUM CARBONATE 500 MG TABLET GT SCH ×2 (08:19→21:00)
[2017-09-16] MEDS: NUTRISOURCE FIBER 4 GM PACKET GT SCH ×2 (08:19→21:00)
[2017-09-16] MEDS: FIBERSOURCE HN 1000ML LIQUID GT PRN (12:09)
[2017-09-16 20:32] VITALS: BP 121/63
[2017-09-16] MEDS: ATORVASTATIN 10 MG TABLET GT SCH (21:00)
[2017-09-17] MEDS: ALBUTEROL SULFATE 2.5 MG/3 ML NEBU NEB SCH ×6 (02:55→22:43)
[2017-09-17] MEDS: IPRATROPIUM BROMIDE 0.5 MG/2.5 ML NEBU NEB SCH ×6 (02:55→22:43)
[2017-09-17] MEDS: BACLOFEN 10 MG TABLET GT SCH ×3 (06:05→21:55)
[2017-09-17] MEDS: CHOLECALCIFEROL 1,000 UNIT TABLET GT SCH (06:05)
[2017-09-17] MEDS: BUDESONIDE 0.5 MG/2 ML NEBU NEB SCH ×2 (07:02→19:54)
[2017-09-17 08:00] VITALS: BP 134/87
[2017-09-17] MEDS: NUTRISOURCE FIBER 4 GM PACKET GT SCH ×2 (08:17→21:55)
[2017-09-17] MEDS: HYDROGEN PEROXIDE 3% 118 ML BOTTLE TP SCH ×2 (08:18→21:55)
[2017-09-17] MEDS: CALCIUM CARBONATE 500 MG TABLET GT SCH ×2 (08:18→21:55)
[2017-09-17] MEDS: CALMOSEPTINE 113 GM OINTMENT TP SCH ×2 (08:18→21:55)
[2017-09-17] MEDS: NYSTATIN CREAM 30 GM TUBE TP SCH (08:18)
[2017-09-17] MEDS: FIBERSOURCE HN 1000ML LIQUID GT PRN (16:35)
[2017-09-17 20:44] VITALS: BP 110/87
[2017-09-17] MEDS: MULTIVIT, IRON, MIN NO. 8, FA TABLET GT SCH (21:55)
[2017-09-17] MEDS: ATORVASTATIN 10 MG TABLET GT SCH (21:55)
[2017-09-18] MEDS: ALBUTEROL SULFATE 2.5 MG/3 ML NEBU NEB SCH ×6 (03:17→22:48)
[2017-09-18] MEDS: IPRATROPIUM BROMIDE 0.5 MG/2.5 ML NEBU NEB SCH ×6 (03:17→22:48)
[2017-09-18] MEDS: BACLOFEN 10 MG TABLET GT SCH ×3 (05:09→21:09)
[2017-09-18] MEDS: CHOLECALCIFEROL 1,000 UNIT TABLET GT SCH (06:36)
[2017-09-18 08:00] VITALS: BP 130/57
[2017-09-18] MEDS: BUDESONIDE 0.5 MG/2 ML NEBU NEB SCH ×2 (08:19→20:01)
[2017-09-18] MEDS: CALCIUM CARBONATE 500 MG TABLET GT SCH ×2 (08:54→21:09)
[2017-09-18] MEDS: NUTRISOURCE FIBER 4 GM PACKET GT SCH ×2 (08:54→21:09)
[2017-09-18] MEDS: CALMOSEPTINE 113 GM OINTMENT TP SCH ×2 (08:55→21:09)
[2017-09-18] MEDS: HYDROGEN PEROXIDE 3% 118 ML BOTTLE TP SCH ×2 (08:55→21:09)
[2017-09-18] MEDS: FIBERSOURCE HN 1000ML LIQUID GT PRN (18:09)
[2017-09-18 20:51] VITALS: BP 124/66
[2017-09-18] MEDS: ATORVASTATIN 10 MG TABLET GT SCH (21:09)
[2017-09-19] MEDS: IPRATROPIUM BROMIDE 0.5 MG/2.5 ML NEBU NEB SCH ×6 (02:37→22:50)
[2017-09-19] MEDS: ALBUTEROL SULFATE 2.5 MG/3 ML NEBU NEB SCH ×6 (02:37→22:50)
[2017-09-19] MEDS: BACLOFEN 10 MG TABLET GT SCH ×3 (05:55→21:59)
[2017-09-19] MEDS: CHOLECALCIFEROL 1,000 UNIT TABLET GT SCH (05:55)
[2017-09-19 08:00] VITALS: BP 123/61
[2017-09-19] MEDS: BUDESONIDE 0.5 MG/2 ML NEBU NEB SCH ×2 (08:21→19:24)
[2017-09-19] MEDS: HYDROGEN PEROXIDE 3% 118 ML BOTTLE TP SCH ×2 (09:13→21:59)
[2017-09-19] MEDS: NUTRISOURCE FIBER 4 GM PACKET GT SCH ×2 (09:13→21:58)
[2017-09-19] MEDS: CALMOSEPTINE 113 GM OINTMENT TP SCH ×2 (09:13→21:58)
[2017-09-19] MEDS: CALCIUM CARBONATE 500 MG TABLET GT SCH ×2 (09:13→21:58)
--- NOTE | 2017-09-19 13:15 | NUR ---
SEEN AND EXAMINED BY GARETH LU,NO NEW ORDERS NOTED.
[2017-09-19] MEDS: MULTIVIT, IRON, MIN NO. 8, FA TABLET GT SCH (21:58)
[2017-09-19] MEDS: ATORVASTATIN 10 MG TABLET GT SCH (21:58)
[2017-09-19 23:17] VITALS: BP 112/67
[2017-09-20] MEDS: ALBUTEROL SULFATE 2.5 MG/3 ML NEBU NEB SCH ×6 (02:40→22:50)
[2017-09-20] MEDS: IPRATROPIUM BROMIDE 0.5 MG/2.5 ML NEBU NEB SCH ×6 (02:40→22:50)
[2017-09-20] MEDS: BACLOFEN 10 MG TABLET GT SCH ×3 (05:29→21:48)
[2017-09-20] MEDS: CHOLECALCIFEROL 1,000 UNIT TABLET GT SCH (05:30)
[2017-09-20] MEDS: BUDESONIDE 0.5 MG/2 ML NEBU NEB SCH ×2 (08:10→19:24)
[2017-09-20] MEDS: NUTRISOURCE FIBER 4 GM PACKET GT SCH ×2 (09:40→21:48)
[2017-09-20] MEDS: CALCIUM CARBONATE 500 MG TABLET GT SCH ×2 (09:41→21:48)
[2017-09-20] MEDS: CALMOSEPTINE 113 GM OINTMENT TP SCH ×2 (09:42→21:48)
[2017-09-20] MEDS: HYDROGEN PEROXIDE 3% 118 ML BOTTLE TP SCH ×2 (09:42→21:48)
--- NOTE | 2017-09-20 12:22 | NUR ---
NEW ORDER WAS CARRIED OUT FOR LOCAL TX ON BUTTOCKS FUNGAL RASH FROM GARETH Goode
[2017-09-20 20:00] VITALS: BP 121/71
[2017-09-20] MEDS: COD LIVER OIL/ZINC OXIDE OINT 113 GM TUBE TP SCH (21:48)
[2017-09-20] MEDS: ATORVASTATIN 10 MG TABLET GT SCH (21:48)
[2017-09-20] MEDS: CLOTRIMAZOLE 1% CREAM 30 GM TUBE TP SCH (21:48)
[2017-09-21] MEDS: FIBERSOURCE HN 1000ML LIQUID GT PRN ×2 (01:00→22:57)
[2017-09-21] MEDS: IPRATROPIUM BROMIDE 0.5 MG/2.5 ML NEBU NEB SCH ×6 (02:40→22:50)
[2017-09-21] MEDS: ALBUTEROL SULFATE 2.5 MG/3 ML NEBU NEB SCH ×6 (02:40→22:50)
[2017-09-21] MEDS: CHOLECALCIFEROL 1,000 UNIT TABLET GT SCH (05:55)
[2017-09-21] MEDS: BACLOFEN 10 MG TABLET GT SCH ×3 (05:55→21:37)
[2017-09-21] MEDS: BUDESONIDE 0.5 MG/2 ML NEBU NEB SCH ×2 (07:49→20:00)
[2017-09-21 08:00] VITALS: BP 132/53
[2017-09-21] MEDS: COD LIVER OIL/ZINC OXIDE OINT 113 GM TUBE TP SCH ×2 (09:00→21:36)
[2017-09-21] MEDS: CLOTRIMAZOLE 1% CREAM 30 GM TUBE TP SCH ×2 (09:00→21:36)
[2017-09-21] MEDS: HYDROGEN PEROXIDE 3% 118 ML BOTTLE TP SCH ×2 (09:00→21:36)
[2017-09-21] MEDS: CALMOSEPTINE 113 GM OINTMENT TP SCH ×2 (09:00→21:36)
[2017-09-21] MEDS: NUTRISOURCE FIBER 4 GM PACKET GT SCH ×2 (09:00→21:36)
[2017-09-21] MEDS: CALCIUM CARBONATE 500 MG TABLET GT SCH ×2 (09:00→21:36)
[2017-09-21] MEDS: MULTIVIT, IRON, MIN NO. 8, FA TABLET GT SCH (21:36)
[2017-09-21] MEDS: ATORVASTATIN 10 MG TABLET GT SCH (21:36)
[2017-09-21 23:16] VITALS: BP 137/78
[2017-09-22] MEDS: ALBUTEROL SULFATE 2.5 MG/3 ML NEBU NEB SCH ×6 (03:01→22:50)
[2017-09-22] MEDS: IPRATROPIUM BROMIDE 0.5 MG/2.5 ML NEBU NEB SCH ×6 (03:01→22:50)
[2017-09-22] MEDS: BACLOFEN 10 MG TABLET GT SCH ×3 (05:17→22:00)
[2017-09-22] MEDS: CHOLECALCIFEROL 1,000 UNIT TABLET GT SCH (05:30)
[2017-09-22] MEDS: BUDESONIDE 0.5 MG/2 ML NEBU NEB SCH ×2 (07:29→19:54)
[2017-09-22 08:00] VITALS: BP 133/81
[2017-09-22] MEDS: NUTRISOURCE FIBER 4 GM PACKET GT SCH ×2 (08:18→20:47)
[2017-09-22] MEDS: CALCIUM CARBONATE 500 MG TABLET GT SCH ×2 (08:18→20:47)
[2017-09-22] MEDS: CALMOSEPTINE 113 GM OINTMENT TP SCH ×2 (08:18→20:47)
[2017-09-22] MEDS: COD LIVER OIL/ZINC OXIDE OINT 113 GM TUBE TP SCH ×2 (08:18→20:47)
[2017-09-22] MEDS: CLOTRIMAZOLE 1% CREAM 30 GM TUBE TP SCH ×2 (08:19→20:47)
[2017-09-22] MEDS: HYDROGEN PEROXIDE 3% 118 ML BOTTLE TP SCH ×2 (08:19→20:47)
[2017-09-22] MEDS: ATORVASTATIN 10 MG TABLET GT SCH (20:46)
[2017-09-22 22:00] VITALS: BP 104/61
[2017-09-23] MEDS: IPRATROPIUM BROMIDE 0.5 MG/2.5 ML NEBU NEB SCH ×6 (02:55→22:50)
[2017-09-23] MEDS: ALBUTEROL SULFATE 2.5 MG/3 ML NEBU NEB SCH ×6 (02:55→22:50)
[2017-09-23] MEDS: BACLOFEN 10 MG TABLET GT SCH ×3 (05:07→21:44)
[2017-09-23] MEDS: CHOLECALCIFEROL 1,000 UNIT TABLET GT SCH (05:36)
[2017-09-23 07:27] VITALS: BP 106/82
[2017-09-23] MEDS: BUDESONIDE 0.5 MG/2 ML NEBU NEB SCH ×2 (07:54→19:21)
[2017-09-23] MEDS: NUTRISOURCE FIBER 4 GM PACKET GT SCH ×2 (08:43→21:44)
[2017-09-23] MEDS: CALCIUM CARBONATE 500 MG TABLET GT SCH ×2 (08:43→21:44)
[2017-09-23] MEDS: CLOTRIMAZOLE 1% CREAM 30 GM TUBE TP SCH ×2 (09:55→21:44)
[2017-09-23] MEDS: CALMOSEPTINE 113 GM OINTMENT TP SCH ×2 (09:55→21:44)
[2017-09-23] MEDS: COD LIVER OIL/ZINC OXIDE OINT 113 GM TUBE TP SCH ×2 (09:55→21:44)
[2017-09-23] MEDS: HYDROGEN PEROXIDE 3% 118 ML BOTTLE TP SCH ×2 (09:55→21:44)
[2017-09-23] MEDS: MULTIVIT, IRON, MIN NO. 8, FA TABLET GT SCH (21:44)
[2017-09-23] MEDS: ATORVASTATIN 10 MG TABLET GT SCH (21:44)
[2017-09-23 23:25] VITALS: BP 96/62
[2017-09-24] MEDS: IPRATROPIUM BROMIDE 0.5 MG/2.5 ML NEBU NEB SCH ×6 (03:08→22:58)
[2017-09-24] MEDS: ALBUTEROL SULFATE 2.5 MG/3 ML NEBU NEB SCH ×6 (03:08→22:58)
[2017-09-24] MEDS: BACLOFEN 10 MG TABLET GT SCH ×3 (06:24→21:07)
[2017-09-24] MEDS: CHOLECALCIFEROL 1,000 UNIT TABLET GT SCH (06:24)
[2017-09-24 08:00] VITALS: BP 116/84
[2017-09-24] MEDS: BUDESONIDE 0.5 MG/2 ML NEBU NEB SCH ×2 (08:05→19:25)
[2017-09-24] MEDS: NUTRISOURCE FIBER 4 GM PACKET GT SCH ×2 (08:54→21:06)
[2017-09-24] MEDS: CALMOSEPTINE 113 GM OINTMENT TP SCH ×2 (08:54→21:07)
[2017-09-24] MEDS: CLOTRIMAZOLE 1% CREAM 30 GM TUBE TP SCH ×2 (08:54→21:07)
[2017-09-24] MEDS: HYDROGEN PEROXIDE 3% 118 ML BOTTLE TP SCH ×2 (08:54→21:07)
[2017-09-24] MEDS: COD LIVER OIL/ZINC OXIDE OINT 113 GM TUBE TP SCH ×2 (08:54→21:07)
[2017-09-24] MEDS: CALCIUM CARBONATE 500 MG TABLET GT SCH ×2 (08:54→21:06)
[2017-09-24 20:07] VITALS: BP 102/57
--- NOTE | 2017-09-24 20:25 | NUR ---
Seen and examined by TABITHA Tang, with new orders noted and carried out.
[2017-09-24] MEDS: DOCUSATE SODIUM 100 MG/10 ML LIQUID UDC GT SCH (21:06)
[2017-09-24] MEDS: ATORVASTATIN 10 MG TABLET GT SCH (21:06)
[2017-09-25] MEDS: IPRATROPIUM BROMIDE 0.5 MG/2.5 ML NEBU NEB SCH ×6 (02:40→22:32)
[2017-09-25] MEDS: ALBUTEROL SULFATE 2.5 MG/3 ML NEBU NEB SCH ×6 (02:40→22:32)
[2017-09-25] MEDS: BACLOFEN 10 MG TABLET GT SCH ×3 (05:51→21:04)
[2017-09-25] MEDS: CHOLECALCIFEROL 1,000 UNIT TABLET GT SCH (05:51)
[2017-09-25 08:00] VITALS: BP 131/77
[2017-09-25] MEDS: BUDESONIDE 0.5 MG/2 ML NEBU NEB SCH ×2 (08:18→19:46)
[2017-09-25] MEDS: CLOTRIMAZOLE 1% CREAM 30 GM TUBE TP SCH ×2 (09:00→21:04)
[2017-09-25] MEDS: NUTRISOURCE FIBER 4 GM PACKET GT SCH ×2 (09:00→21:02)
[2017-09-25] MEDS: NYSTATIN CREAM 30 GM TUBE TP SCH ×2 (09:00→21:04)
[2017-09-25] MEDS: CALMOSEPTINE 113 GM OINTMENT TP SCH ×2 (09:00→21:03)
[2017-09-25] MEDS: COD LIVER OIL/ZINC OXIDE OINT 113 GM TUBE TP SCH ×2 (09:00→21:03)
[2017-09-25] MEDS: HYDROGEN PEROXIDE 3% 118 ML BOTTLE TP SCH ×2 (09:00→21:03)
[2017-09-25] MEDS: CALCIUM CARBONATE 500 MG TABLET GT SCH ×2 (09:00→21:02)
[2017-09-25] MEDS: DOCUSATE SODIUM 100 MG/10 ML LIQUID UDC GT SCH ×2 (09:00→21:02)
[2017-09-25] MEDS: FIBERSOURCE HN 1000ML LIQUID GT PRN (13:24)
[2017-09-25 20:00] VITALS: BP 121/87
[2017-09-25] MEDS: MULTIVIT, IRON, MIN NO. 8, FA TABLET GT SCH (21:02)
[2017-09-25] MEDS: ATORVASTATIN 10 MG TABLET GT SCH (21:02)
[2017-09-26] MEDS: ALBUTEROL SULFATE 2.5 MG/3 ML NEBU NEB SCH ×6 (02:43→22:44)
[2017-09-26] MEDS: IPRATROPIUM BROMIDE 0.5 MG/2.5 ML NEBU NEB SCH ×6 (02:43→22:44)
[2017-09-26] MEDS: BACLOFEN 10 MG TABLET GT SCH ×3 (05:46→21:46)
[2017-09-26] MEDS: CHOLECALCIFEROL 1,000 UNIT TABLET GT SCH (06:30)
[2017-09-26] MEDS: BUDESONIDE 0.5 MG/2 ML NEBU NEB SCH ×2 (07:49→20:26)
[2017-09-26 08:00] VITALS: BP_SYST 69
[2017-09-26] MEDS: DOCUSATE SODIUM 100 MG/10 ML LIQUID UDC GT SCH ×2 (09:14→21:46)
[2017-09-26] MEDS: NUTRISOURCE FIBER 4 GM PACKET GT SCH ×2 (09:14→21:46)
[2017-09-26] MEDS: CALMOSEPTINE 113 GM OINTMENT TP SCH ×2 (09:16→21:46)
[2017-09-26] MEDS: CALCIUM CARBONATE 500 MG TABLET GT SCH ×2 (09:16→21:46)
[2017-09-26] MEDS: NYSTATIN CREAM 30 GM TUBE TP SCH ×2 (09:17→21:46)
[2017-09-26] MEDS: HYDROGEN PEROXIDE 3% 118 ML BOTTLE TP SCH ×2 (09:17→21:46)
[2017-09-26] MEDS: COD LIVER OIL/ZINC OXIDE OINT 113 GM TUBE TP SCH ×2 (09:17→21:46)
[2017-09-26] MEDS: CLOTRIMAZOLE 1% CREAM 30 GM TUBE TP SCH ×2 (09:17→21:46)
[2017-09-26] MEDS: FIBERSOURCE HN 1000ML LIQUID GT PRN (10:37)
--- NOTE | 2017-09-26 17:28 | NUR ---
SEEN AND EXAMINED BY DR DOMINGUEZ,NO NEW ORDERS NOTED.
[2017-09-26 20:00] VITALS: BP 117/73
[2017-09-26] MEDS: ATORVASTATIN 10 MG TABLET GT SCH (21:46)
[2017-09-27] MEDS: IPRATROPIUM BROMIDE 0.5 MG/2.5 ML NEBU NEB SCH ×6 (03:32→22:50)
[2017-09-27] MEDS: ALBUTEROL SULFATE 2.5 MG/3 ML NEBU NEB SCH ×6 (03:32→22:50)
[2017-09-27] MEDS: BACLOFEN 10 MG TABLET GT SCH ×3 (05:51→21:11)
[2017-09-27] MEDS: CHOLECALCIFEROL 1,000 UNIT TABLET GT SCH (05:51)
[2017-09-27] MEDS: BISACODYL 10 MG SUPP.RECT RC PRN (06:11)
[2017-09-27] MEDS: BUDESONIDE 0.5 MG/2 ML NEBU NEB SCH ×2 (07:11→19:37)
[2017-09-27] MEDS: DOCUSATE SODIUM 100 MG/10 ML LIQUID UDC GT SCH ×2 (08:08→20:41)
[2017-09-27] MEDS: HYDROGEN PEROXIDE 3% 118 ML BOTTLE TP SCH ×2 (08:08→20:42)
[2017-09-27] MEDS: COD LIVER OIL/ZINC OXIDE OINT 113 GM TUBE TP SCH ×2 (08:08→20:42)
[2017-09-27] MEDS: CALCIUM CARBONATE 500 MG TABLET GT SCH ×2 (08:08→20:41)
[2017-09-27] MEDS: NUTRISOURCE FIBER 4 GM PACKET GT SCH ×2 (08:08→20:41)
[2017-09-27] MEDS: CALMOSEPTINE 113 GM OINTMENT TP SCH ×2 (08:08→20:42)
[2017-09-27] MEDS: CLOTRIMAZOLE 1% CREAM 30 GM TUBE TP SCH ×2 (09:00→20:42)
[2017-09-27] MEDS: NYSTATIN CREAM 30 GM TUBE TP SCH ×2 (09:00→20:42)
[2017-09-27] MEDS: FIBERSOURCE HN 1000ML LIQUID GT PRN (11:38)
[2017-09-27 12:01] VITALS: BP 110/76
[2017-09-27 20:03] VITALS: BP 115/72
[2017-09-27] MEDS: ATORVASTATIN 10 MG TABLET GT SCH (20:41)
[2017-09-27] MEDS: MULTIVIT, IRON, MIN NO. 8, FA TABLET GT SCH (20:42)
[2017-09-28] MEDS: IPRATROPIUM BROMIDE 0.5 MG/2.5 ML NEBU NEB SCH ×6 (02:40→23:30)
[2017-09-28] MEDS: ALBUTEROL SULFATE 2.5 MG/3 ML NEBU NEB SCH ×6 (02:40→23:30)
[2017-09-28] MEDS: BACLOFEN 10 MG TABLET GT SCH ×3 (05:14→21:15)
[2017-09-28] MEDS: CHOLECALCIFEROL 1,000 UNIT TABLET GT SCH (05:39)
[2017-09-28] MEDS: BUDESONIDE 0.5 MG/2 ML NEBU NEB SCH ×2 (07:15→20:21)
[2017-09-28] MEDS: NUTRISOURCE FIBER 4 GM PACKET GT SCH ×2 (08:24→20:48)
[2017-09-28] MEDS: NYSTATIN CREAM 30 GM TUBE TP SCH ×2 (08:24→20:49)
[2017-09-28] MEDS: COD LIVER OIL/ZINC OXIDE OINT 113 GM TUBE TP SCH ×2 (08:24→20:48)
[2017-09-28] MEDS: CLOTRIMAZOLE 1% CREAM 30 GM TUBE TP SCH ×2 (08:24→20:49)
[2017-09-28] MEDS: DOCUSATE SODIUM 100 MG/10 ML LIQUID UDC GT SCH ×2 (08:24→20:48)
[2017-09-28] MEDS: HYDROGEN PEROXIDE 3% 118 ML BOTTLE TP SCH ×2 (08:24→20:49)
[2017-09-28] MEDS: CALCIUM CARBONATE 500 MG TABLET GT SCH ×2 (08:24→20:48)
[2017-09-28] MEDS: CALMOSEPTINE 113 GM OINTMENT TP SCH ×2 (08:24→20:48)
[2017-09-28 11:36] VITALS: BP 116/74
[2017-09-28] MEDS: FIBERSOURCE HN 1000ML LIQUID GT PRN (15:08)
[2017-09-28 20:16] VITALS: BP 118/73
[2017-09-28] MEDS: ATORVASTATIN 10 MG TABLET GT SCH (20:48)
[2017-09-29] MEDS: IPRATROPIUM BROMIDE 0.5 MG/2.5 ML NEBU NEB SCH ×6 (02:30→22:40)
[2017-09-29] MEDS: ALBUTEROL SULFATE 2.5 MG/3 ML NEBU NEB SCH ×6 (02:30→22:40)
[2017-09-29] MEDS: BACLOFEN 10 MG TABLET GT SCH ×3 (05:11→21:44)
[2017-09-29] MEDS: FIBERSOURCE HN 1000ML LIQUID GT PRN ×2 (05:36→17:08)
[2017-09-29] MEDS: CHOLECALCIFEROL 1,000 UNIT TABLET GT SCH (05:36)
[2017-09-29] MEDS: BUDESONIDE 0.5 MG/2 ML NEBU NEB SCH ×2 (07:09→19:20)
[2017-09-29 08:00] VITALS: BP 101/59
[2017-09-29] MEDS: COD LIVER OIL/ZINC OXIDE OINT 113 GM TUBE TP SCH ×2 (09:10→21:43)
[2017-09-29] MEDS: NUTRISOURCE FIBER 4 GM PACKET GT SCH ×2 (09:10→21:43)
[2017-09-29] MEDS: CALMOSEPTINE 113 GM OINTMENT TP SCH ×2 (09:10→21:43)
[2017-09-29] MEDS: NYSTATIN CREAM 30 GM TUBE TP SCH ×2 (09:10→21:44)
[2017-09-29] MEDS: CLOTRIMAZOLE 1% CREAM 30 GM TUBE TP SCH ×2 (09:10→21:44)
[2017-09-29] MEDS: HYDROGEN PEROXIDE 3% 118 ML BOTTLE TP SCH ×2 (09:10→21:43)
[2017-09-29] MEDS: CALCIUM CARBONATE 500 MG TABLET GT SCH ×2 (09:10→21:43)
[2017-09-29] MEDS: DOCUSATE SODIUM 100 MG/10 ML LIQUID UDC GT SCH ×2 (09:10→21:43)
[2017-09-29 20:00] VITALS: BP 102/71
[2017-09-29] MEDS: MULTIVIT, IRON, MIN NO. 8, FA TABLET GT SCH (21:43)
[2017-09-29] MEDS: ATORVASTATIN 10 MG TABLET GT SCH (21:43)
[2017-09-30] MEDS: ALBUTEROL SULFATE 2.5 MG/3 ML NEBU NEB SCH ×6 (03:22→22:50)
[2017-09-30] MEDS: IPRATROPIUM BROMIDE 0.5 MG/2.5 ML NEBU NEB SCH ×6 (03:22→22:50)
[2017-09-30] MEDS: BACLOFEN 10 MG TABLET GT SCH ×3 (05:54→22:31)
[2017-09-30] MEDS: CHOLECALCIFEROL 1,000 UNIT TABLET GT SCH (05:54)
[2017-09-30] MEDS: DOCUSATE SODIUM 100 MG/10 ML LIQUID UDC GT SCH ×2 (08:00→21:00)
[2017-09-30] MEDS: CALCIUM CARBONATE 500 MG TABLET GT SCH ×2 (08:00→21:00)
[2017-09-30] MEDS: NUTRISOURCE FIBER 4 GM PACKET GT SCH ×2 (08:00→21:00)
[2017-09-30] MEDS: CLOTRIMAZOLE 1% CREAM 30 GM TUBE TP SCH ×2 (08:01→21:00)
[2017-09-30] MEDS: NYSTATIN CREAM 30 GM TUBE TP SCH ×2 (08:01→21:00)
[2017-09-30] MEDS: COD LIVER OIL/ZINC OXIDE OINT 113 GM TUBE TP SCH ×2 (08:01→21:00)
[2017-09-30] MEDS: CALMOSEPTINE 113 GM OINTMENT TP SCH ×2 (08:01→21:00)
[2017-09-30] MEDS: HYDROGEN PEROXIDE 3% 118 ML BOTTLE TP SCH ×2 (08:01→21:00)
[2017-09-30] MEDS: BUDESONIDE 0.5 MG/2 ML NEBU NEB SCH ×2 (08:02→19:16)
[2017-09-30 08:07] VITALS: BP 103/57
[2017-09-30] MEDS: FIBERSOURCE HN 1000ML LIQUID GT PRN (18:53)
[2017-09-30 20:44] VITALS: BP 99/57
[2017-09-30] MEDS: ATORVASTATIN 10 MG TABLET GT SCH (21:00)
[2017-10-01] MEDS: ALBUTEROL SULFATE 2.5 MG/3 ML NEBU NEB SCH ×6 (02:40→22:50)
[2017-10-01] MEDS: IPRATROPIUM BROMIDE 0.5 MG/2.5 ML NEBU NEB SCH ×6 (02:40→22:50)
[2017-10-01] MEDS: CHOLECALCIFEROL 1,000 UNIT TABLET GT SCH (06:06)
[2017-10-01] MEDS: BACLOFEN 10 MG TABLET GT SCH ×3 (06:06→21:20)
[2017-10-01] MEDS: FIBERSOURCE HN 1000ML LIQUID GT PRN (06:48)
[2017-10-01 08:03] VITALS: BP 153/98
[2017-10-01] MEDS: CALCIUM CARBONATE 500 MG TABLET GT SCH ×2 (08:05→21:19)
[2017-10-01] MEDS: DOCUSATE SODIUM 100 MG/10 ML LIQUID UDC GT SCH ×2 (08:05→21:19)
[2017-10-01] MEDS: NUTRISOURCE FIBER 4 GM PACKET GT SCH ×2 (08:05→21:19)
[2017-10-01] MEDS: COD LIVER OIL/ZINC OXIDE OINT 113 GM TUBE TP SCH ×2 (08:06→21:20)
[2017-10-01] MEDS: CLOTRIMAZOLE 1% CREAM 30 GM TUBE TP SCH ×2 (08:06→21:20)
[2017-10-01] MEDS: NYSTATIN CREAM 30 GM TUBE TP SCH ×2 (08:06→21:20)
[2017-10-01] MEDS: HYDROGEN PEROXIDE 3% 118 ML BOTTLE TP SCH ×2 (08:06→21:20)
[2017-10-01] MEDS: CALMOSEPTINE 113 GM OINTMENT TP SCH ×2 (08:06→21:19)
[2017-10-01] MEDS: BUDESONIDE 0.5 MG/2 ML NEBU NEB SCH ×2 (08:30→19:15)
[2017-10-01] MEDS: MULTIVIT, IRON, MIN NO. 8, FA TABLET GT SCH (21:19)
[2017-10-01] MEDS: ATORVASTATIN 10 MG TABLET GT SCH (21:19)
[2017-10-01 21:55] VITALS: BP 101/72
[2017-10-02] MEDS: IPRATROPIUM BROMIDE 0.5 MG/2.5 ML NEBU NEB SCH ×6 (02:42→22:33)
[2017-10-02] MEDS: ALBUTEROL SULFATE 2.5 MG/3 ML NEBU NEB SCH ×6 (02:42→22:33)
[2017-10-02] MEDS: BACLOFEN 10 MG TABLET GT SCH ×3 (06:13→21:09)
[2017-10-02] MEDS: CHOLECALCIFEROL 1,000 UNIT TABLET GT SCH (06:13)
[2017-10-02] MEDS: FIBERSOURCE HN 1000ML LIQUID GT PRN (06:47)
[2017-10-02] MEDS: BUDESONIDE 0.5 MG/2 ML NEBU NEB SCH ×2 (07:06→19:43)
[2017-10-02 08:05] VITALS: BP 98/54
[2017-10-02] MEDS: DOCUSATE SODIUM 100 MG/10 ML LIQUID UDC GT SCH ×2 (08:55→21:08)
[2017-10-02] MEDS: CALCIUM CARBONATE 500 MG TABLET GT SCH ×2 (08:55→21:08)
[2017-10-02] MEDS: NUTRISOURCE FIBER 4 GM PACKET GT SCH ×2 (08:55→21:08)
[2017-10-02] MEDS: HYDROGEN PEROXIDE 3% 118 ML BOTTLE TP SCH ×2 (08:56→21:09)
[2017-10-02] MEDS: COD LIVER OIL/ZINC OXIDE OINT 113 GM TUBE TP SCH ×2 (08:56→21:08)
[2017-10-02] MEDS: CLOTRIMAZOLE 1% CREAM 30 GM TUBE TP SCH ×2 (08:56→21:09)
[2017-10-02] MEDS: CALMOSEPTINE 113 GM OINTMENT TP SCH ×2 (08:56→21:08)
[2017-10-02] MEDS: NYSTATIN CREAM 30 GM TUBE TP SCH ×2 (08:56→21:09)
--- NOTE | 2017-10-02 13:10 | NUR ---
Seen and examined by Myrtle,no new orders.
--- NOTE | 2017-10-02 13:26 | NUR ---
Pharmacy Update from Today's 10/02/17 IDT Meeting: VS: Temp 97.8 BP 101/72 HR 66 LABS: (from 02/20/17, no new) Wbc 5.4H/H 13.5/40.8Plt 139 Na 141K 3.5Cl 104CO2 31BUN/SCr 12/0.7 BS 127 MEDICATION USE REVIEWED: > Pt not on any anti-psych or anti-seizure medications > PRN MED USAGE: (Aug) Tylenol for pain used x 0 Tylenol for temp used x 0 Bisacodyl PRN x0 NEW ORDERS NOTED: > Miralax PRN d/c'd 09/03 Pt was reviewed and discussed in depth, no medication concerns or issues reported at this time, will continue to follow
--- NOTE | 2017-10-02 15:25 | NUR ---
INTERDISCIPLINARY PLAN OF CARE CONFERENCE was held today. Patient's family was invited to the meeting, but they were unable to attend due to living [id number]. Dr. Underwood and the Interdisciplinary Team reviewed the current plan of care in detail. RN provided updates on patient's current medical condition. No major changes were reported at this time. See RN IDT conference notes for details. See also all other disciplines IDT notes and physician's progress notes for additional details.
--- NOTE | 2017-10-02 15:27 | NUR ---
Today, JO-ANN received via mail the annual admission paperwork from patient's sister Dione Garcia, which JO-ANN had mailed to her in August. The following papers were signed by Dione: 1) Documentation of Preferred Intensity of Care 2) Patient Rights Acknowledgement 3) Voluntary Prior Express Consent Form The following papers were NOT signed by Dione, and she included a letter in the packet stating that "I will not sign any document in which i assume financial responsibility for the resident Alisa Muir": 1) Conditions of Admissions 2) [place] [facility] Admission Agreement
[2017-10-02] MEDS: ATORVASTATIN 10 MG TABLET GT SCH (21:08)
[2017-10-02 22:31] VITALS: BP 119/70
[2017-10-03] MEDS: ALBUTEROL SULFATE 2.5 MG/3 ML NEBU NEB SCH ×6 (02:43→22:40)
[2017-10-03] MEDS: IPRATROPIUM BROMIDE 0.5 MG/2.5 ML NEBU NEB SCH ×6 (02:43→22:40)
[2017-10-03] MEDS: FIBERSOURCE HN 1000ML LIQUID GT PRN (03:17)
[2017-10-03] MEDS: BACLOFEN 10 MG TABLET GT SCH ×3 (05:26→21:25)
[2017-10-03] MEDS: CHOLECALCIFEROL 1,000 UNIT TABLET GT SCH (05:36)
[2017-10-03 08:00] VITALS: BP 134/78
[2017-10-03] MEDS: BUDESONIDE 0.5 MG/2 ML NEBU NEB SCH ×2 (08:15→19:23)
[2017-10-03] MEDS: DOCUSATE SODIUM 100 MG/10 ML LIQUID UDC GT SCH ×2 (08:47→21:23)
[2017-10-03] MEDS: CALMOSEPTINE 113 GM OINTMENT TP SCH ×2 (08:48→21:24)
[2017-10-03] MEDS: CALCIUM CARBONATE 500 MG TABLET GT SCH ×2 (08:48→21:24)
[2017-10-03] MEDS: COD LIVER OIL/ZINC OXIDE OINT 113 GM TUBE TP SCH ×2 (08:48→21:24)
[2017-10-03] MEDS: NUTRISOURCE FIBER 4 GM PACKET GT SCH ×2 (08:48→21:24)
[2017-10-03] MEDS: NYSTATIN CREAM 30 GM TUBE TP SCH ×2 (08:49→21:25)
[2017-10-03] MEDS: CLOTRIMAZOLE 1% CREAM 30 GM TUBE TP SCH ×2 (08:49→21:25)
[2017-10-03] MEDS: HYDROGEN PEROXIDE 3% 118 ML BOTTLE TP SCH ×2 (08:49→21:25)
--- NOTE | 2017-10-03 14:00 | NUR ---
SEEN BY DR ALBERTO NEAL PA,NO NEW ORDERS
[2017-10-03] MEDS: ATORVASTATIN 10 MG TABLET GT SCH (21:24)
[2017-10-03] MEDS: MULTIVIT, IRON, MIN NO. 8, FA TABLET GT SCH (21:24)
[2017-10-03 23:08] VITALS: BP 138/84
[2017-10-04] MEDS: IPRATROPIUM BROMIDE 0.5 MG/2.5 ML NEBU NEB SCH ×6 (02:54→22:52)
[2017-10-04] MEDS: ALBUTEROL SULFATE 2.5 MG/3 ML NEBU NEB SCH ×6 (02:54→22:52)
[2017-10-04] MEDS: FIBERSOURCE HN 1000ML LIQUID GT PRN (02:57)
[2017-10-04] MEDS: CHOLECALCIFEROL 1,000 UNIT TABLET GT SCH (05:47)
[2017-10-04] MEDS: BACLOFEN 10 MG TABLET GT SCH ×3 (05:47→21:28)
[2017-10-04] MEDS: BUDESONIDE 0.5 MG/2 ML NEBU NEB SCH ×2 (07:37→20:09)
[2017-10-04 08:00] VITALS: BP 101/58
[2017-10-04] MEDS: COD LIVER OIL/ZINC OXIDE OINT 113 GM TUBE TP SCH (08:26)
[2017-10-04] MEDS: CALCIUM CARBONATE 500 MG TABLET GT SCH ×2 (08:26→21:06)
[2017-10-04] MEDS: NYSTATIN CREAM 30 GM TUBE TP SCH ×2 (08:26→21:07)
[2017-10-04] MEDS: CLOTRIMAZOLE 1% CREAM 30 GM TUBE TP SCH (08:26)
[2017-10-04] MEDS: NUTRISOURCE FIBER 4 GM PACKET GT SCH ×2 (08:26→21:06)
[2017-10-04] MEDS: CALMOSEPTINE 113 GM OINTMENT TP SCH ×2 (08:26→21:06)
[2017-10-04] MEDS: HYDROGEN PEROXIDE 3% 118 ML BOTTLE TP SCH ×2 (08:26→21:06)
[2017-10-04] MEDS: DOCUSATE SODIUM 100 MG/10 ML LIQUID UDC GT SCH ×2 (08:26→21:05)
[2017-10-04] MEDS: ATORVASTATIN 10 MG TABLET GT SCH (21:06)
[2017-10-04 23:02] VITALS: BP 125/69
[2017-10-05] MEDS: IPRATROPIUM BROMIDE 0.5 MG/2.5 ML NEBU NEB SCH ×6 (02:30→23:07)
[2017-10-05] MEDS: ALBUTEROL SULFATE 2.5 MG/3 ML NEBU NEB SCH ×6 (02:30→23:07)
[2017-10-05] MEDS: BACLOFEN 10 MG TABLET GT SCH ×3 (05:16→21:43)
[2017-10-05] MEDS: CHOLECALCIFEROL 1,000 UNIT TABLET GT SCH (05:39)
[2017-10-05] MEDS: BUDESONIDE 0.5 MG/2 ML NEBU NEB SCH ×2 (07:26→19:20)
[2017-10-05 08:08] VITALS: BP 96/60
--- NOTE | 2017-10-05 08:41 | NUR ---
NEW LOCAL TX CARRIED OUTFROM GARETH Goode FOR LOCAL TX OB BUTTOCKS FUNGAL RASH.PICTURE TAKEN.
[2017-10-05] MEDS: HYDROGEN PEROXIDE 3% 118 ML BOTTLE TP SCH ×2 (09:00→21:43)
[2017-10-05] MEDS: NYSTATIN CREAM 30 GM TUBE TP SCH ×2 (09:00→21:43)
[2017-10-05] MEDS: CALCIUM CARBONATE 500 MG TABLET GT SCH ×2 (09:00→21:43)
[2017-10-05] MEDS: NUTRISOURCE FIBER 4 GM PACKET GT SCH ×2 (09:00→21:42)
[2017-10-05] MEDS: DOCUSATE SODIUM 100 MG/10 ML LIQUID UDC GT SCH ×2 (09:00→21:42)
[2017-10-05] MEDS: CALMOSEPTINE 113 GM OINTMENT TP SCH ×2 (09:00→21:43)
[2017-10-05] MEDS: CLOTRIMAZOLE 1% CREAM 30 GM TUBE TP SCH ×2 (10:40→21:43)
[2017-10-05] MEDS: COD LIVER OIL/ZINC OXIDE OINT 113 GM TUBE TP SCH ×2 (10:41→21:43)
[2017-10-05] MEDS: FIBERSOURCE HN 1000ML LIQUID GT PRN (12:19)
[2017-10-05 20:54] VITALS: BP 105/66
[2017-10-05] MEDS: ATORVASTATIN 10 MG TABLET GT SCH (21:42)
[2017-10-05] MEDS: MULTIVIT, IRON, MIN NO. 8, FA TABLET GT SCH (21:43)
[2017-10-06] MEDS: IPRATROPIUM BROMIDE 0.5 MG/2.5 ML NEBU NEB SCH ×6 (02:40→22:35)
[2017-10-06] MEDS: ALBUTEROL SULFATE 2.5 MG/3 ML NEBU NEB SCH ×6 (02:40→22:35)
[2017-10-06] MEDS: CHOLECALCIFEROL 1,000 UNIT TABLET GT SCH (06:55)
[2017-10-06] MEDS: BACLOFEN 10 MG TABLET GT SCH ×3 (06:55→21:34)
[2017-10-06] MEDS: BUDESONIDE 0.5 MG/2 ML NEBU NEB SCH ×2 (07:23→20:06)
[2017-10-06 08:00] VITALS: BP 133/87
[2017-10-06] MEDS: DOCUSATE SODIUM 100 MG/10 ML LIQUID UDC GT SCH ×2 (09:00→21:34)
[2017-10-06] MEDS: NUTRISOURCE FIBER 4 GM PACKET GT SCH ×2 (09:55→21:34)
[2017-10-06] MEDS: CALMOSEPTINE 113 GM OINTMENT TP SCH ×2 (09:55→21:34)
[2017-10-06] MEDS: HYDROGEN PEROXIDE 3% 118 ML BOTTLE TP SCH ×2 (09:55→21:34)
[2017-10-06] MEDS: COD LIVER OIL/ZINC OXIDE OINT 113 GM TUBE TP SCH ×2 (09:55→21:34)
[2017-10-06] MEDS: CALCIUM CARBONATE 500 MG TABLET GT SCH ×2 (09:55→21:34)
[2017-10-06] MEDS: CLOTRIMAZOLE 1% CREAM 30 GM TUBE TP SCH ×2 (09:56→21:34)
[2017-10-06] MEDS: NYSTATIN CREAM 30 GM TUBE TP SCH ×2 (09:56→21:34)
[2017-10-06] MEDS: FIBERSOURCE HN 1000ML LIQUID GT PRN (13:30)
[2017-10-06 20:24] VITALS: BP 125/71
[2017-10-06] MEDS: ATORVASTATIN 10 MG TABLET GT SCH (21:34)
--- NOTE | 2017-10-06 22:11 | NUR ---
SEEN BY FRANCIA JESUS WITH NNO.
[2017-10-07] MEDS: IPRATROPIUM BROMIDE 0.5 MG/2.5 ML NEBU NEB SCH ×6 (02:34→22:43)
[2017-10-07] MEDS: ALBUTEROL SULFATE 2.5 MG/3 ML NEBU NEB SCH ×6 (02:34→22:43)
[2017-10-07] MEDS: BACLOFEN 10 MG TABLET GT SCH ×3 (06:23→21:57)
[2017-10-07] MEDS: CHOLECALCIFEROL 1,000 UNIT TABLET GT SCH (06:23)
[2017-10-07] MEDS: BUDESONIDE 0.5 MG/2 ML NEBU NEB SCH ×2 (07:30→20:12)
[2017-10-07] MEDS: DOCUSATE SODIUM 100 MG/10 ML LIQUID UDC GT SCH ×2 (09:00→21:57)
[2017-10-07] MEDS: NUTRISOURCE FIBER 4 GM PACKET GT SCH ×2 (09:39→21:57)
[2017-10-07] MEDS: CALCIUM CARBONATE 500 MG TABLET GT SCH ×2 (09:39→21:57)
[2017-10-07] MEDS: CLOTRIMAZOLE 1% CREAM 30 GM TUBE TP SCH ×2 (09:40→21:57)
[2017-10-07] MEDS: CALMOSEPTINE 113 GM OINTMENT TP SCH ×2 (09:40→21:57)
[2017-10-07] MEDS: NYSTATIN CREAM 30 GM TUBE TP SCH ×2 (09:40→21:57)
[2017-10-07] MEDS: HYDROGEN PEROXIDE 3% 118 ML BOTTLE TP SCH ×2 (09:40→21:57)
[2017-10-07] MEDS: COD LIVER OIL/ZINC OXIDE OINT 113 GM TUBE TP SCH ×2 (09:40→21:57)
[2017-10-07 11:23] VITALS: BP 106/68
[2017-10-07] MEDS: FIBERSOURCE HN 1000ML LIQUID GT PRN (14:19)
[2017-10-07 20:15] VITALS: BP 124/84
[2017-10-07] MEDS: ATORVASTATIN 10 MG TABLET GT SCH (21:57)
[2017-10-07] MEDS: MULTIVIT, IRON, MIN NO. 8, FA TABLET GT SCH (21:57)
[2017-10-08] MEDS: ALBUTEROL SULFATE 2.5 MG/3 ML NEBU NEB SCH ×6 (02:58→22:57)
[2017-10-08] MEDS: IPRATROPIUM BROMIDE 0.5 MG/2.5 ML NEBU NEB SCH ×6 (02:58→22:57)
[2017-10-08] MEDS: BACLOFEN 10 MG TABLET GT SCH ×3 (06:58→21:57)
[2017-10-08] MEDS: CHOLECALCIFEROL 1,000 UNIT TABLET GT SCH (06:58)
[2017-10-08 08:00] VITALS: BP 120/75
[2017-10-08] MEDS: BUDESONIDE 0.5 MG/2 ML NEBU NEB SCH ×2 (08:06→18:48)
[2017-10-08] MEDS: CALCIUM CARBONATE 500 MG TABLET GT SCH ×2 (08:33→21:57)
[2017-10-08] MEDS: DOCUSATE SODIUM 100 MG/10 ML LIQUID UDC GT SCH ×2 (08:33→21:57)
[2017-10-08] MEDS: CALMOSEPTINE 113 GM OINTMENT TP SCH ×2 (08:33→21:57)
[2017-10-08] MEDS: NUTRISOURCE FIBER 4 GM PACKET GT SCH ×2 (08:33→21:57)
[2017-10-08] MEDS: NYSTATIN CREAM 30 GM TUBE TP SCH ×2 (08:34→21:57)
[2017-10-08] MEDS: CLOTRIMAZOLE 1% CREAM 30 GM TUBE TP SCH ×2 (08:34→21:57)
[2017-10-08] MEDS: COD LIVER OIL/ZINC OXIDE OINT 113 GM TUBE TP SCH ×2 (08:34→21:57)
[2017-10-08] MEDS: HYDROGEN PEROXIDE 3% 118 ML BOTTLE TP SCH ×2 (08:34→21:57)
[2017-10-08] MEDS: FIBERSOURCE HN 1000ML LIQUID GT PRN (14:00)
--- NOTE | 2017-10-08 16:03 | NUR ---
SEEN BY HALINA FELDMAN N.P. AND GARETH JETER.
[2017-10-08 20:10] VITALS: BP 115/81
[2017-10-08] MEDS: ATORVASTATIN 10 MG TABLET GT SCH (21:57)
[2017-10-09] MEDS: ALBUTEROL SULFATE 2.5 MG/3 ML NEBU NEB SCH ×6 (02:57→22:40)
[2017-10-09] MEDS: IPRATROPIUM BROMIDE 0.5 MG/2.5 ML NEBU NEB SCH ×6 (02:57→22:40)
[2017-10-09] MEDS: BACLOFEN 10 MG TABLET GT SCH ×3 (06:38→21:54)
[2017-10-09] MEDS: CHOLECALCIFEROL 1,000 UNIT TABLET GT SCH (06:38)
[2017-10-09] MEDS: BUDESONIDE 0.5 MG/2 ML NEBU NEB SCH ×2 (07:50→19:41)
[2017-10-09 08:00] VITALS: BP 103/74
[2017-10-09] MEDS: DOCUSATE SODIUM 100 MG/10 ML LIQUID UDC GT SCH ×2 (08:53→21:53)
[2017-10-09] MEDS: COD LIVER OIL/ZINC OXIDE OINT 113 GM TUBE TP SCH ×2 (08:54→21:54)
[2017-10-09] MEDS: CALCIUM CARBONATE 500 MG TABLET GT SCH ×2 (08:54→21:54)
[2017-10-09] MEDS: NUTRISOURCE FIBER 4 GM PACKET GT SCH ×2 (08:54→21:54)
[2017-10-09] MEDS: CALMOSEPTINE 113 GM OINTMENT TP SCH ×2 (08:54→21:54)
[2017-10-09] MEDS: HYDROGEN PEROXIDE 3% 118 ML BOTTLE TP SCH ×2 (08:54→21:54)
[2017-10-09] MEDS: NYSTATIN CREAM 30 GM TUBE TP SCH ×2 (08:54→21:54)
[2017-10-09] MEDS: CLOTRIMAZOLE 1% CREAM 30 GM TUBE TP SCH ×2 (08:54→21:54)
--- NOTE | 2017-10-09 14:46 | NUR ---
Seen by Myrtle LU ,no new orders noted.
[2017-10-09] MEDS: FIBERSOURCE HN 1000ML LIQUID GT PRN (17:24)
[2017-10-09 20:00] VITALS: BP 103/45
[2017-10-09] MEDS: MULTIVIT, IRON, MIN NO. 8, FA TABLET GT SCH (21:54)
[2017-10-09] MEDS: ATORVASTATIN 10 MG TABLET GT SCH (21:54)
[2017-10-10] MEDS: ALBUTEROL SULFATE 2.5 MG/3 ML NEBU NEB SCH ×6 (02:31→22:33)
[2017-10-10] MEDS: IPRATROPIUM BROMIDE 0.5 MG/2.5 ML NEBU NEB SCH ×6 (02:31→22:33)
[2017-10-10] MEDS: BACLOFEN 10 MG TABLET GT SCH ×3 (05:55→21:37)
[2017-10-10] MEDS: CHOLECALCIFEROL 1,000 UNIT TABLET GT SCH (05:56)
[2017-10-10] MEDS: BISACODYL 10 MG SUPP.RECT RC PRN (06:33)
[2017-10-10 08:00] VITALS: BP 140/67
[2017-10-10] MEDS: BUDESONIDE 0.5 MG/2 ML NEBU NEB SCH ×2 (08:00→19:46)
[2017-10-10] MEDS: NUTRISOURCE FIBER 4 GM PACKET GT SCH ×2 (09:29→21:36)
[2017-10-10] MEDS: CLOTRIMAZOLE 1% CREAM 30 GM TUBE TP SCH ×2 (09:29→21:36)
[2017-10-10] MEDS: NYSTATIN CREAM 30 GM TUBE TP SCH ×2 (09:29→21:37)
[2017-10-10] MEDS: CALMOSEPTINE 113 GM OINTMENT TP SCH ×2 (09:29→21:36)
[2017-10-10] MEDS: CALCIUM CARBONATE 500 MG TABLET GT SCH ×2 (09:29→21:36)
[2017-10-10] MEDS: DOCUSATE SODIUM 100 MG/10 ML LIQUID UDC GT SCH ×2 (09:29→21:35)
[2017-10-10] MEDS: COD LIVER OIL/ZINC OXIDE OINT 113 GM TUBE TP SCH ×2 (09:29→21:36)
[2017-10-10] MEDS: HYDROGEN PEROXIDE 3% 118 ML BOTTLE TP SCH ×2 (09:29→21:36)
[2017-10-10 20:00] VITALS: BP 124/82
[2017-10-10] MEDS: ATORVASTATIN 10 MG TABLET GT SCH (21:35)
[2017-10-10] MEDS: FIBERSOURCE HN 1000ML LIQUID GT PRN (21:37)
[2017-10-11] MEDS: ALBUTEROL SULFATE 2.5 MG/3 ML NEBU NEB SCH ×6 (02:50→22:40)
[2017-10-11] MEDS: IPRATROPIUM BROMIDE 0.5 MG/2.5 ML NEBU NEB SCH ×6 (02:50→22:40)
[2017-10-11] MEDS: CHOLECALCIFEROL 1,000 UNIT TABLET GT SCH (05:48)
[2017-10-11] MEDS: BACLOFEN 10 MG TABLET GT SCH ×3 (05:48→21:47)
[2017-10-11 08:00] VITALS: BP 126/67
[2017-10-11] MEDS: BUDESONIDE 0.5 MG/2 ML NEBU NEB SCH ×2 (08:10→20:19)
[2017-10-11] MEDS: COD LIVER OIL/ZINC OXIDE OINT 113 GM TUBE TP SCH ×2 (08:29→21:46)
[2017-10-11] MEDS: CLOTRIMAZOLE 1% CREAM 30 GM TUBE TP SCH ×2 (08:29→21:46)
[2017-10-11] MEDS: NUTRISOURCE FIBER 4 GM PACKET GT SCH ×2 (08:29→21:45)
[2017-10-11] MEDS: DOCUSATE SODIUM 100 MG/10 ML LIQUID UDC GT SCH ×2 (08:29→21:44)
[2017-10-11] MEDS: CALMOSEPTINE 113 GM OINTMENT TP SCH ×2 (08:29→21:46)
[2017-10-11] MEDS: HYDROGEN PEROXIDE 3% 118 ML BOTTLE TP SCH ×2 (08:29→21:46)
[2017-10-11] MEDS: NYSTATIN CREAM 30 GM TUBE TP SCH ×2 (08:29→21:47)
[2017-10-11] MEDS: CALCIUM CARBONATE 500 MG TABLET GT SCH ×2 (08:29→21:45)
[2017-10-11 20:00] VITALS: BP 93/53
[2017-10-11] MEDS: ATORVASTATIN 10 MG TABLET GT SCH (21:45)
[2017-10-11] MEDS: MULTIVIT, IRON, MIN NO. 8, FA TABLET GT SCH (21:46)
[2017-10-12] MEDS: FIBERSOURCE HN 1000ML LIQUID GT PRN (00:30)
[2017-10-12] MEDS: ALBUTEROL SULFATE 2.5 MG/3 ML NEBU NEB SCH ×6 (02:36→22:42)
[2017-10-12] MEDS: IPRATROPIUM BROMIDE 0.5 MG/2.5 ML NEBU NEB SCH ×6 (02:36→22:42)
[2017-10-12] MEDS: BACLOFEN 10 MG TABLET GT SCH ×3 (06:16→22:13)
[2017-10-12] MEDS: CHOLECALCIFEROL 1,000 UNIT TABLET GT SCH (06:16)
[2017-10-12] MEDS: BUDESONIDE 0.5 MG/2 ML NEBU NEB SCH ×2 (07:15→19:17)
[2017-10-12 08:00] VITALS: BP 116/67
[2017-10-12] MEDS: CALCIUM CARBONATE 500 MG TABLET GT SCH ×2 (08:08→21:00)
[2017-10-12] MEDS: DOCUSATE SODIUM 100 MG/10 ML LIQUID UDC GT SCH ×2 (08:08→21:00)
[2017-10-12] MEDS: COD LIVER OIL/ZINC OXIDE OINT 113 GM TUBE TP SCH ×2 (08:08→21:00)
[2017-10-12] MEDS: CALMOSEPTINE 113 GM OINTMENT TP SCH ×2 (08:08→21:00)
[2017-10-12] MEDS: CLOTRIMAZOLE 1% CREAM 30 GM TUBE TP SCH ×2 (08:08→21:00)
[2017-10-12] MEDS: NUTRISOURCE FIBER 4 GM PACKET GT SCH ×2 (08:08→21:00)
[2017-10-12] MEDS: NYSTATIN CREAM 30 GM TUBE TP SCH ×2 (08:08→21:00)
[2017-10-12] MEDS: HYDROGEN PEROXIDE 3% 118 ML BOTTLE TP SCH ×2 (08:08→21:00)
[2017-10-12] MEDS: ATORVASTATIN 10 MG TABLET GT SCH (21:00)
[2017-10-12 22:00] VITALS: BP 112/74
[2017-10-13] MEDS: FIBERSOURCE HN 1000ML LIQUID GT PRN (02:07)
[2017-10-13] MEDS: ALBUTEROL SULFATE 2.5 MG/3 ML NEBU NEB SCH ×6 (02:50→22:44)
[2017-10-13] MEDS: IPRATROPIUM BROMIDE 0.5 MG/2.5 ML NEBU NEB SCH ×6 (02:50→22:43)
[2017-10-13] MEDS: BACLOFEN 10 MG TABLET GT SCH ×3 (06:34→21:20)
[2017-10-13] MEDS: CHOLECALCIFEROL 1,000 UNIT TABLET GT SCH (06:34)
[2017-10-13 08:06] VITALS: BP 110/65
[2017-10-13] MEDS: BUDESONIDE 0.5 MG/2 ML NEBU NEB SCH ×2 (08:19→20:01)
[2017-10-13] MEDS: CALCIUM CARBONATE 500 MG TABLET GT SCH ×2 (09:00→21:18)
[2017-10-13] MEDS: NYSTATIN CREAM 30 GM TUBE TP SCH ×2 (09:00→21:20)
[2017-10-13] MEDS: DOCUSATE SODIUM 100 MG/10 ML LIQUID UDC GT SCH ×2 (09:00→21:17)
[2017-10-13] MEDS: CLOTRIMAZOLE 1% CREAM 30 GM TUBE TP SCH ×2 (09:00→21:19)
[2017-10-13] MEDS: HYDROGEN PEROXIDE 3% 118 ML BOTTLE TP SCH ×2 (09:00→21:19)
[2017-10-13] MEDS: COD LIVER OIL/ZINC OXIDE OINT 113 GM TUBE TP SCH ×2 (09:00→21:19)
[2017-10-13] MEDS: NUTRISOURCE FIBER 4 GM PACKET GT SCH ×2 (09:00→21:18)
[2017-10-13] MEDS: CALMOSEPTINE 113 GM OINTMENT TP SCH ×2 (09:00→21:19)
--- NOTE | 2017-10-13 10:30 | NUR ---
NEW ORDERS NOTED FOR PT EVALUATION FOR HEAD AND NECK SUPPORT,ORDERS CARRIED OUT.
[2017-10-13] MEDS: ATORVASTATIN 10 MG TABLET GT SCH (21:17)
[2017-10-13] MEDS: MULTIVIT, IRON, MIN NO. 8, FA TABLET GT SCH (21:18)
[2017-10-13 23:32] VITALS: BP 117/74
[2017-10-14] MEDS: ALBUTEROL SULFATE 2.5 MG/3 ML NEBU NEB SCH ×6 (02:35→22:49)
[2017-10-14] MEDS: IPRATROPIUM BROMIDE 0.5 MG/2.5 ML NEBU NEB SCH ×6 (02:35→22:49)
[2017-10-14] MEDS: FIBERSOURCE HN 1000ML LIQUID GT PRN (03:36)
[2017-10-14] MEDS: BACLOFEN 10 MG TABLET GT SCH ×3 (05:41→21:46)
[2017-10-14] MEDS: CHOLECALCIFEROL 1,000 UNIT TABLET GT SCH (05:41)
[2017-10-14] MEDS: BUDESONIDE 0.5 MG/2 ML NEBU NEB SCH ×2 (07:31→19:56)
[2017-10-14 08:09] VITALS: BP 125/78
[2017-10-14] MEDS: NYSTATIN CREAM 30 GM TUBE TP SCH ×2 (09:00→21:46)
[2017-10-14] MEDS: NUTRISOURCE FIBER 4 GM PACKET GT SCH ×2 (09:00→21:46)
[2017-10-14] MEDS: CALMOSEPTINE 113 GM OINTMENT TP SCH ×2 (09:00→21:46)
[2017-10-14] MEDS: CLOTRIMAZOLE 1% CREAM 30 GM TUBE TP SCH ×2 (09:00→21:46)
[2017-10-14] MEDS: DOCUSATE SODIUM 100 MG/10 ML LIQUID UDC GT SCH ×2 (09:00→21:46)
[2017-10-14] MEDS: COD LIVER OIL/ZINC OXIDE OINT 113 GM TUBE TP SCH ×2 (09:00→21:46)
[2017-10-14] MEDS: CALCIUM CARBONATE 500 MG TABLET GT SCH ×2 (09:00→21:46)
[2017-10-14] MEDS: HYDROGEN PEROXIDE 3% 118 ML BOTTLE TP SCH ×2 (09:00→21:46)
[2017-10-14] MEDS ORDERED: NEOMY/BACITRA/POLYMYXIN B OINT UD PACKET TP PRN (18:45)
[2017-10-14] MEDS: ATORVASTATIN 10 MG TABLET GT SCH (21:46)
[2017-10-14] MEDS: NEOMY/BACITRA/POLYMYXIN B OINT UD PACKET TP SCH (21:46)
[2017-10-14 22:00] VITALS: BP 128/77
[2017-10-15] MEDS: ALBUTEROL SULFATE 2.5 MG/3 ML NEBU NEB SCH ×5 (02:32→22:30)
[2017-10-15] MEDS: IPRATROPIUM BROMIDE 0.5 MG/2.5 ML NEBU NEB SCH ×6 (02:32→22:30)
[2017-10-15] MEDS: BACLOFEN 10 MG TABLET GT SCH ×3 (06:21→21:56)
[2017-10-15] MEDS: CHOLECALCIFEROL 1,000 UNIT TABLET GT SCH (06:21)
[2017-10-15] MEDS: FIBERSOURCE HN 1000ML LIQUID GT PRN (07:01)
[2017-10-15 08:07] VITALS: BP 126/85
[2017-10-15] MEDS: DOCUSATE SODIUM 100 MG/10 ML LIQUID UDC GT SCH ×2 (08:13→21:54)
[2017-10-15] MEDS: CALCIUM CARBONATE 500 MG TABLET GT SCH ×2 (08:13→21:54)
[2017-10-15] MEDS: NEOMY/BACITRA/POLYMYXIN B OINT UD PACKET TP SCH ×2 (08:13→21:56)
[2017-10-15] MEDS: CALMOSEPTINE 113 GM OINTMENT TP SCH ×2 (08:13→21:54)
[2017-10-15] MEDS: HYDROGEN PEROXIDE 3% 118 ML BOTTLE TP SCH ×2 (08:13→21:55)
[2017-10-15] MEDS: NYSTATIN CREAM 30 GM TUBE TP SCH ×2 (08:13→21:55)
[2017-10-15] MEDS: COD LIVER OIL/ZINC OXIDE OINT 113 GM TUBE TP SCH ×2 (08:13→21:55)
[2017-10-15] MEDS: NUTRISOURCE FIBER 4 GM PACKET GT SCH ×2 (08:13→21:54)
[2017-10-15] MEDS: CLOTRIMAZOLE 1% CREAM 30 GM TUBE TP SCH ×2 (08:13→21:55)
[2017-10-15] MEDS: BUDESONIDE 0.5 MG/2 ML NEBU NEB SCH ×2 (08:18→19:59)
[2017-10-15 20:00] VITALS: BP 119/79
[2017-10-15] MEDS: ATORVASTATIN 10 MG TABLET GT SCH (21:54)
[2017-10-15] MEDS: MULTIVIT, IRON, MIN NO. 8, FA TABLET GT SCH (21:54)
[2017-10-16] MEDS: ALBUTEROL SULFATE 2.5 MG/3 ML NEBU NEB SCH ×6 (02:45→22:40)
[2017-10-16] MEDS: IPRATROPIUM BROMIDE 0.5 MG/2.5 ML NEBU NEB SCH ×6 (02:45→22:40)
[2017-10-16] MEDS: CHOLECALCIFEROL 1,000 UNIT TABLET GT SCH (06:44)
[2017-10-16] MEDS: BACLOFEN 10 MG TABLET GT SCH ×3 (06:44→21:21)
[2017-10-16] MEDS: FIBERSOURCE HN 1000ML LIQUID GT PRN (06:50)
[2017-10-16] MEDS: BUDESONIDE 0.5 MG/2 ML NEBU NEB SCH ×2 (07:46→18:38)
[2017-10-16 08:09] VITALS: BP 121/62
[2017-10-16] MEDS: HYDROGEN PEROXIDE 3% 118 ML BOTTLE TP SCH ×2 (08:53→21:20)
[2017-10-16] MEDS: CALMOSEPTINE 113 GM OINTMENT TP SCH ×2 (08:53→21:19)
[2017-10-16] MEDS: COD LIVER OIL/ZINC OXIDE OINT 113 GM TUBE TP SCH ×3 (08:53→21:19)
[2017-10-16] MEDS: NUTRISOURCE FIBER 4 GM PACKET GT SCH ×2 (08:53→21:19)
[2017-10-16] MEDS: CLOTRIMAZOLE 1% CREAM 30 GM TUBE TP SCH ×2 (08:53→21:20)
[2017-10-16] MEDS: DOCUSATE SODIUM 100 MG/10 ML LIQUID UDC GT SCH ×2 (08:53→21:19)
[2017-10-16] MEDS: CALCIUM CARBONATE 500 MG TABLET GT SCH ×2 (08:53→21:19)
[2017-10-16] MEDS: NYSTATIN CREAM 30 GM TUBE TP SCH ×2 (08:54→21:20)
[2017-10-16] MEDS: NEOMY/BACITRA/POLYMYXIN B OINT UD PACKET TP SCH ×2 (08:54→21:21)
--- NOTE | 2017-10-16 14:35 | NUR ---
Seen by Myrtle LU ,no new orders noted.
--- NOTE | 2017-10-16 14:38 | NUR ---
Seen by Myrtle LU ,no new orders noted.
[2017-10-16] MEDS ORDERED: COD LIVER OIL/ZINC OXIDE OINT 113 GM TUBE TP PRN (18:15)
[2017-10-16 20:00] VITALS: BP 116/69
[2017-10-16] MEDS: ATORVASTATIN 10 MG TABLET GT SCH (21:19)
[2017-10-17] MEDS: ALBUTEROL SULFATE 2.5 MG/3 ML NEBU NEB SCH ×6 (02:31→22:40)
[2017-10-17] MEDS: IPRATROPIUM BROMIDE 0.5 MG/2.5 ML NEBU NEB SCH ×7 (02:31→22:40)
[2017-10-17] MEDS: FIBERSOURCE HN 1000ML LIQUID GT PRN (03:36)
[2017-10-17] MEDS: BACLOFEN 10 MG TABLET GT SCH ×3 (05:37→21:06)
[2017-10-17] MEDS: CHOLECALCIFEROL 1,000 UNIT TABLET GT SCH (05:37)
[2017-10-17 08:00] VITALS: BP 108/78
[2017-10-17] MEDS: BUDESONIDE 0.5 MG/2 ML NEBU NEB SCH ×2 (08:15→19:00)
[2017-10-17] MEDS: CALMOSEPTINE 113 GM OINTMENT TP SCH ×2 (09:00→21:05)
[2017-10-17] MEDS: CALCIUM CARBONATE 500 MG TABLET GT SCH ×2 (09:00→21:05)
[2017-10-17] MEDS: DOCUSATE SODIUM 100 MG/10 ML LIQUID UDC GT SCH ×2 (09:00→21:05)
[2017-10-17] MEDS: COD LIVER OIL/ZINC OXIDE OINT 113 GM TUBE TP SCH ×4 (09:00→21:05)
[2017-10-17] MEDS: NYSTATIN CREAM 30 GM TUBE TP SCH ×2 (09:00→21:05)
[2017-10-17] MEDS: CLOTRIMAZOLE 1% CREAM 30 GM TUBE TP SCH ×2 (09:00→21:05)
[2017-10-17] MEDS: HYDROGEN PEROXIDE 3% 118 ML BOTTLE TP SCH ×2 (09:00→21:05)
[2017-10-17] MEDS: NUTRISOURCE FIBER 4 GM PACKET GT SCH ×2 (09:00→21:05)
[2017-10-17] MEDS: NEOMY/BACITRA/POLYMYXIN B OINT UD PACKET TP SCH ×2 (09:00→21:06)
[2017-10-17 20:00] VITALS: BP 92/56
--- NOTE | 2017-10-17 20:31 | NUR ---
SEEN BY HALINA GREY,N.P., NO NEW ORDERS.
[2017-10-17] MEDS: ATORVASTATIN 10 MG TABLET GT SCH (21:05)
[2017-10-17] MEDS: MULTIVIT, IRON, MIN NO. 8, FA TABLET GT SCH (21:05)
[2017-10-18] MEDS: ALBUTEROL SULFATE 2.5 MG/3 ML NEBU NEB SCH ×5 (02:30→19:54)
[2017-10-18] MEDS: IPRATROPIUM BROMIDE 0.5 MG/2.5 ML NEBU NEB SCH ×5 (02:30→19:54)
[2017-10-18] MEDS: FIBERSOURCE HN 1000ML LIQUID GT PRN (03:31)
[2017-10-18] MEDS: CHOLECALCIFEROL 1,000 UNIT TABLET GT SCH (05:43)
[2017-10-18] MEDS: BACLOFEN 10 MG TABLET GT SCH ×3 (05:43→21:09)
[2017-10-18 08:00] VITALS: BP 114/62
[2017-10-18] MEDS: BUDESONIDE 0.5 MG/2 ML NEBU NEB SCH ×2 (08:16→20:12)
[2017-10-18] MEDS: DOCUSATE SODIUM 100 MG/10 ML LIQUID UDC GT SCH ×2 (09:00→21:04)
[2017-10-18] MEDS: NUTRISOURCE FIBER 4 GM PACKET GT SCH ×2 (09:01→21:04)
[2017-10-18] MEDS: CALCIUM CARBONATE 500 MG TABLET GT SCH ×2 (09:01→21:06)
[2017-10-18] MEDS: NEOMY/BACITRA/POLYMYXIN B OINT UD PACKET TP SCH ×2 (09:02→21:09)
[2017-10-18] MEDS: CLOTRIMAZOLE 1% CREAM 30 GM TUBE TP SCH ×2 (09:02→21:09)
[2017-10-18] MEDS: HYDROGEN PEROXIDE 3% 118 ML BOTTLE TP SCH ×2 (09:02→21:09)
[2017-10-18] MEDS: CALMOSEPTINE 113 GM OINTMENT TP SCH ×2 (09:02→21:06)
[2017-10-18] MEDS: NYSTATIN CREAM 30 GM TUBE TP SCH ×2 (09:02→21:09)
[2017-10-18] MEDS: COD LIVER OIL/ZINC OXIDE OINT 113 GM TUBE TP SCH ×4 (09:02→21:06)
[2017-10-18 20:00] VITALS: BP 114/74
[2017-10-18] MEDS: ATORVASTATIN 10 MG TABLET GT SCH (21:04)
[2017-10-19] MEDS: IPRATROPIUM BROMIDE 0.5 MG/2.5 ML NEBU NEB SCH ×7 (00:01→22:45)
[2017-10-19] MEDS: ALBUTEROL SULFATE 2.5 MG/3 ML NEBU NEB SCH ×7 (00:01→22:45)
[2017-10-19] MEDS: FIBERSOURCE HN 1000ML LIQUID GT PRN (04:46)
[2017-10-19] MEDS: BACLOFEN 10 MG TABLET GT SCH ×3 (05:34→21:25)
[2017-10-19] MEDS: CHOLECALCIFEROL 1,000 UNIT TABLET GT SCH (05:34)
[2017-10-19] MEDS: BUDESONIDE 0.5 MG/2 ML NEBU NEB SCH ×2 (07:21→18:57)
[2017-10-19 08:06] VITALS: BP 96/64
[2017-10-19] MEDS: DOCUSATE SODIUM 100 MG/10 ML LIQUID UDC GT SCH ×2 (09:00→20:20)
[2017-10-19] MEDS: NUTRISOURCE FIBER 4 GM PACKET GT SCH ×2 (09:07→20:20)
[2017-10-19] MEDS: CALCIUM CARBONATE 500 MG TABLET GT SCH ×2 (09:07→20:20)
[2017-10-19] MEDS: NYSTATIN CREAM 30 GM TUBE TP SCH ×2 (09:08→20:20)
[2017-10-19] MEDS: COD LIVER OIL/ZINC OXIDE OINT 113 GM TUBE TP SCH ×2 (09:08→20:20)
[2017-10-19] MEDS: CALMOSEPTINE 113 GM OINTMENT TP SCH ×2 (09:08→20:20)
[2017-10-19] MEDS: NEOMY/BACITRA/POLYMYXIN B OINT UD PACKET TP SCH ×2 (09:08→20:21)
[2017-10-19] MEDS: HYDROGEN PEROXIDE 3% 118 ML BOTTLE TP SCH ×2 (09:08→20:20)
[2017-10-19] MEDS: MULTIVIT, IRON, MIN NO. 8, FA TABLET GT SCH (20:20)
[2017-10-19] MEDS: ATORVASTATIN 10 MG TABLET GT SCH (20:20)
[2017-10-19 22:56] VITALS: BP 93/63
[2017-10-20] MEDS: IPRATROPIUM BROMIDE 0.5 MG/2.5 ML NEBU NEB SCH ×6 (02:32→22:50)
[2017-10-20] MEDS: ALBUTEROL SULFATE 2.5 MG/3 ML NEBU NEB SCH ×6 (02:32→22:50)
[2017-10-20] MEDS: BACLOFEN 10 MG TABLET GT SCH ×3 (05:49→21:21)
[2017-10-20] MEDS: CHOLECALCIFEROL 1,000 UNIT TABLET GT SCH (05:50)
[2017-10-20] MEDS: BUDESONIDE 0.5 MG/2 ML NEBU NEB SCH ×2 (07:28→19:18)
[2017-10-20 08:00] VITALS: BP 108/68
[2017-10-20] MEDS: DOCUSATE SODIUM 100 MG/10 ML LIQUID UDC GT SCH ×2 (09:00→21:20)
[2017-10-20] MEDS: NYSTATIN CREAM 30 GM TUBE TP SCH ×2 (09:54→21:21)
[2017-10-20] MEDS: NUTRISOURCE FIBER 4 GM PACKET GT SCH ×2 (09:54→21:20)
[2017-10-20] MEDS: COD LIVER OIL/ZINC OXIDE OINT 113 GM TUBE TP SCH ×2 (09:54→21:21)
[2017-10-20] MEDS: HYDROGEN PEROXIDE 3% 118 ML BOTTLE TP SCH ×2 (09:54→21:21)
[2017-10-20] MEDS: CALMOSEPTINE 113 GM OINTMENT TP SCH ×2 (09:54→21:21)
[2017-10-20] MEDS: CALCIUM CARBONATE 500 MG TABLET GT SCH ×2 (09:54→21:20)
[2017-10-20] MEDS: NEOMY/BACITRA/POLYMYXIN B OINT UD PACKET TP SCH ×2 (09:54→21:21)
[2017-10-20] MEDS: FIBERSOURCE HN 1000ML LIQUID GT PRN (10:30)
[2017-10-20 20:13] VITALS: BP 124/67
[2017-10-20] MEDS: ATORVASTATIN 10 MG TABLET GT SCH (21:20)
[2017-10-21] MEDS: IPRATROPIUM BROMIDE 0.5 MG/2.5 ML NEBU NEB SCH ×6 (03:34→22:43)
[2017-10-21] MEDS: ALBUTEROL SULFATE 2.5 MG/3 ML NEBU NEB SCH ×6 (03:34→22:43)
[2017-10-21] MEDS: BACLOFEN 10 MG TABLET GT SCH ×3 (05:07→21:19)
[2017-10-21] MEDS: CHOLECALCIFEROL 1,000 UNIT TABLET GT SCH (05:40)
[2017-10-21] MEDS: FIBERSOURCE HN 1000ML LIQUID GT PRN (06:38)
[2017-10-21 08:00] VITALS: BP 110/75
[2017-10-21] MEDS: BUDESONIDE 0.5 MG/2 ML NEBU NEB SCH ×2 (08:16→19:39)
[2017-10-21] MEDS: DOCUSATE SODIUM 100 MG/10 ML LIQUID UDC GT SCH ×2 (08:48→21:18)
[2017-10-21] MEDS: NUTRISOURCE FIBER 4 GM PACKET GT SCH ×2 (08:49→21:18)
[2017-10-21] MEDS: HYDROGEN PEROXIDE 3% 118 ML BOTTLE TP SCH ×2 (08:49→21:19)
[2017-10-21] MEDS: CALCIUM CARBONATE 500 MG TABLET GT SCH ×2 (08:49→21:18)
[2017-10-21] MEDS: CALMOSEPTINE 113 GM OINTMENT TP SCH ×2 (08:49→21:18)
[2017-10-21] MEDS: COD LIVER OIL/ZINC OXIDE OINT 113 GM TUBE TP SCH ×2 (08:49→21:18)
[2017-10-21] MEDS: NEOMY/BACITRA/POLYMYXIN B OINT UD PACKET TP SCH ×2 (08:50→21:19)
[2017-10-21 20:03] VITALS: BP 94/56
[2017-10-21] MEDS: ATORVASTATIN 10 MG TABLET GT SCH (21:18)
[2017-10-21] MEDS: MULTIVIT, IRON, MIN NO. 8, FA TABLET GT SCH (21:18)
[2017-10-22] MEDS: IPRATROPIUM BROMIDE 0.5 MG/2.5 ML NEBU NEB SCH ×6 (02:31→22:50)
[2017-10-22] MEDS: ALBUTEROL SULFATE 2.5 MG/3 ML NEBU NEB SCH ×6 (02:31→22:50)
[2017-10-22] MEDS: CHOLECALCIFEROL 1,000 UNIT TABLET GT SCH (05:44)
[2017-10-22] MEDS: BACLOFEN 10 MG TABLET GT SCH ×3 (05:44→21:17)
[2017-10-22] MEDS: BUDESONIDE 0.5 MG/2 ML NEBU NEB SCH ×2 (06:55→19:37)
[2017-10-22] MEDS: FIBERSOURCE HN 1000ML LIQUID GT PRN (07:08)
[2017-10-22 08:00] VITALS: BP 109/77
[2017-10-22] MEDS: NUTRISOURCE FIBER 4 GM PACKET GT SCH ×2 (09:04→21:17)
[2017-10-22] MEDS: NEOMY/BACITRA/POLYMYXIN B OINT UD PACKET TP SCH (09:04)
[2017-10-22] MEDS: CALCIUM CARBONATE 500 MG TABLET GT SCH ×2 (09:04→21:17)
[2017-10-22] MEDS: HYDROGEN PEROXIDE 3% 118 ML BOTTLE TP SCH ×2 (09:04→21:17)
[2017-10-22] MEDS: COD LIVER OIL/ZINC OXIDE OINT 113 GM TUBE TP SCH ×2 (09:04→21:17)
[2017-10-22] MEDS: DOCUSATE SODIUM 100 MG/10 ML LIQUID UDC GT SCH ×2 (09:04→21:17)
[2017-10-22] MEDS: CALMOSEPTINE 113 GM OINTMENT TP SCH ×2 (09:06→21:17)
[2017-10-22 20:00] VITALS: BP 118/74
[2017-10-22] MEDS: ATORVASTATIN 10 MG TABLET GT SCH (21:17)
[2017-10-23] MEDS: ALBUTEROL SULFATE 2.5 MG/3 ML NEBU NEB SCH ×6 (03:28→22:39)
[2017-10-23] MEDS: IPRATROPIUM BROMIDE 0.5 MG/2.5 ML NEBU NEB SCH ×6 (03:28→22:39)
[2017-10-23] MEDS: BACLOFEN 10 MG TABLET GT SCH ×3 (05:42→22:44)
[2017-10-23] MEDS: CHOLECALCIFEROL 1,000 UNIT TABLET GT SCH (05:42)
[2017-10-23] MEDS: BUDESONIDE 0.5 MG/2 ML NEBU NEB SCH ×2 (07:34→19:54)
[2017-10-23 08:00] VITALS: BP 117/81
[2017-10-23] MEDS: DOCUSATE SODIUM 100 MG/10 ML LIQUID UDC GT SCH ×2 (09:07→21:00)
[2017-10-23] MEDS: NUTRISOURCE FIBER 4 GM PACKET GT SCH ×2 (09:07→21:00)
[2017-10-23] MEDS: COD LIVER OIL/ZINC OXIDE OINT 113 GM TUBE TP SCH (09:08)
[2017-10-23] MEDS: HYDROGEN PEROXIDE 3% 118 ML BOTTLE TP SCH ×2 (09:08→21:00)
[2017-10-23] MEDS: CALMOSEPTINE 113 GM OINTMENT TP SCH ×2 (09:08→21:00)
[2017-10-23] MEDS: CALCIUM CARBONATE 500 MG TABLET GT SCH ×2 (09:08→21:00)
[2017-10-23] MEDS: FIBERSOURCE HN 1000ML LIQUID GT PRN (13:10)
[2017-10-23 20:00] VITALS: BP 108/67
[2017-10-23] MEDS: MULTIVIT, IRON, MIN NO. 8, FA TABLET GT SCH (21:00)
[2017-10-23] MEDS: ATORVASTATIN 10 MG TABLET GT SCH (21:00)
[2017-10-24] MEDS: ALBUTEROL SULFATE 2.5 MG/3 ML NEBU NEB SCH ×6 (02:30→22:49)
[2017-10-24] MEDS: IPRATROPIUM BROMIDE 0.5 MG/2.5 ML NEBU NEB SCH ×6 (02:30→22:49)
[2017-10-24] MEDS: BACLOFEN 10 MG TABLET GT SCH ×3 (05:12→22:25)
[2017-10-24] MEDS: CHOLECALCIFEROL 1,000 UNIT TABLET GT SCH (05:41)
[2017-10-24] MEDS: BUDESONIDE 0.5 MG/2 ML NEBU NEB SCH ×2 (07:24→19:31)
[2017-10-24 08:00] VITALS: BP 126/67
[2017-10-24] MEDS: CALCIUM CARBONATE 500 MG TABLET GT SCH ×2 (09:16→21:00)
[2017-10-24] MEDS: HYDROGEN PEROXIDE 3% 118 ML BOTTLE TP SCH ×2 (09:16→21:00)
[2017-10-24] MEDS: NUTRISOURCE FIBER 4 GM PACKET GT SCH ×2 (09:16→21:00)
[2017-10-24] MEDS: CALMOSEPTINE 113 GM OINTMENT TP SCH ×2 (09:16→21:00)
[2017-10-24] MEDS: DOCUSATE SODIUM 100 MG/10 ML LIQUID UDC GT SCH ×2 (09:16→21:00)
[2017-10-24] MEDS: FIBERSOURCE HN 1000ML LIQUID GT PRN (12:43)
[2017-10-24 20:00] VITALS: BP 105/49
[2017-10-24] MEDS: ATORVASTATIN 10 MG TABLET GT SCH (21:00)
[2017-10-25] MEDS: IPRATROPIUM BROMIDE 0.5 MG/2.5 ML NEBU NEB SCH ×6 (02:51→22:40)
[2017-10-25] MEDS: ALBUTEROL SULFATE 2.5 MG/3 ML NEBU NEB SCH ×6 (02:51→22:40)
[2017-10-25] MEDS: CHOLECALCIFEROL 1,000 UNIT TABLET GT SCH (05:43)
[2017-10-25] MEDS: BACLOFEN 10 MG TABLET GT SCH ×3 (05:43→21:55)
[2017-10-25] MEDS: BUDESONIDE 0.5 MG/2 ML NEBU NEB SCH ×2 (07:32→19:36)
[2017-10-25 08:00] VITALS: BP 126/71
[2017-10-25] MEDS: CALMOSEPTINE 113 GM OINTMENT TP SCH ×2 (08:57→20:58)
[2017-10-25] MEDS: HYDROGEN PEROXIDE 3% 118 ML BOTTLE TP SCH ×2 (08:57→20:58)
[2017-10-25] MEDS: CALCIUM CARBONATE 500 MG TABLET GT SCH ×2 (08:57→20:58)
[2017-10-25] MEDS: DOCUSATE SODIUM 100 MG/10 ML LIQUID UDC GT SCH ×2 (08:57→20:59)
[2017-10-25] MEDS: NUTRISOURCE FIBER 4 GM PACKET GT SCH ×2 (08:57→20:58)
[2017-10-25] MEDS: FIBERSOURCE HN 1000ML LIQUID GT PRN (17:20)
--- NOTE | 2017-10-25 18:00 | NUR ---
SEEN BY DR. DOMINGUEZ AND NNO.
[2017-10-25 20:00] VITALS: BP 104/75
[2017-10-25] MEDS: ATORVASTATIN 10 MG TABLET GT SCH (20:58)
[2017-10-25] MEDS: MULTIVIT, IRON, MIN NO. 8, FA TABLET GT SCH (20:58)
[2017-10-26] MEDS: ALBUTEROL SULFATE 2.5 MG/3 ML NEBU NEB SCH ×6 (02:56→22:44)
[2017-10-26] MEDS: IPRATROPIUM BROMIDE 0.5 MG/2.5 ML NEBU NEB SCH ×6 (02:56→22:44)
[2017-10-26] MEDS ORDERED: COD LIVER OIL/ZINC OXIDE OINT 113 GM TUBE TOP SCH (06:00)
[2017-10-26] MEDS: BACLOFEN 10 MG TABLET GT SCH ×3 (06:08→21:04)
[2017-10-26] MEDS: CHOLECALCIFEROL 1,000 UNIT TABLET GT SCH (06:08)
--- NOTE | 2017-10-26 06:30 | NUR ---
continued treatment to left buttock excoriation with Desitin every shift X 14 days.
[2017-10-26] MEDS ORDERED: COD LIVER OIL/ZINC OXIDE OINT 113 GM TUBE TOP ONE (06:45)
[2017-10-26] MEDS: BUDESONIDE 0.5 MG/2 ML NEBU NEB SCH ×2 (07:25→20:14)
[2017-10-26 08:00] VITALS: BP 130/69
[2017-10-26] MEDS: HYDROGEN PEROXIDE 3% 118 ML BOTTLE TP SCH ×2 (08:08→21:04)
[2017-10-26] MEDS: CALMOSEPTINE 113 GM OINTMENT TP SCH ×2 (08:08→21:04)
[2017-10-26] MEDS: CALCIUM CARBONATE 500 MG TABLET GT SCH ×2 (08:08→21:03)
[2017-10-26] MEDS: NUTRISOURCE FIBER 4 GM PACKET GT SCH ×2 (08:08→21:03)
[2017-10-26] MEDS: DOCUSATE SODIUM 100 MG/10 ML LIQUID UDC GT SCH ×2 (08:08→21:03)
[2017-10-26] MEDS: COD LIVER OIL/ZINC OXIDE OINT 113 GM TUBE TOP SCH ×2 (08:08→21:04)
[2017-10-26] MEDS: FIBERSOURCE HN 1000ML LIQUID GT PRN (18:00)
[2017-10-26] MEDS: ATORVASTATIN 10 MG TABLET GT SCH (21:03)
[2017-10-26 22:00] VITALS: BP 138/82
[2017-10-27] MEDS: IPRATROPIUM BROMIDE 0.5 MG/2.5 ML NEBU NEB SCH ×6 (03:30→23:00)
[2017-10-27] MEDS: ALBUTEROL SULFATE 2.5 MG/3 ML NEBU NEB SCH ×6 (03:30→23:00)
[2017-10-27] MEDS: BACLOFEN 10 MG TABLET GT SCH ×3 (05:41→21:33)
[2017-10-27] MEDS: CHOLECALCIFEROL 1,000 UNIT TABLET GT SCH (05:42)
[2017-10-27] MEDS: BUDESONIDE 0.5 MG/2 ML NEBU NEB SCH ×2 (07:04→20:01)
[2017-10-27 08:00] VITALS: BP 116/71
[2017-10-27] MEDS: NUTRISOURCE FIBER 4 GM PACKET GT SCH ×2 (09:11→20:04)
[2017-10-27] MEDS: DOCUSATE SODIUM 100 MG/10 ML LIQUID UDC GT SCH ×2 (09:11→20:04)
[2017-10-27] MEDS: CALCIUM CARBONATE 500 MG TABLET GT SCH ×2 (09:12→21:33)
[2017-10-27] MEDS: HYDROGEN PEROXIDE 3% 118 ML BOTTLE TP SCH ×2 (09:12→20:04)
[2017-10-27] MEDS: CALMOSEPTINE 113 GM OINTMENT TP SCH ×2 (09:12→20:04)
[2017-10-27] MEDS: COD LIVER OIL/ZINC OXIDE OINT 113 GM TUBE TOP SCH ×2 (09:12→20:04)
[2017-10-27] MEDS: FIBERSOURCE HN 1000ML LIQUID GT PRN (20:04)
[2017-10-27] MEDS: ATORVASTATIN 10 MG TABLET GT SCH (20:04)
[2017-10-27] MEDS: MULTIVIT, IRON, MIN NO. 8, FA TABLET GT SCH (20:04)
[2017-10-27 23:30] VITALS: BP 120/75
[2017-10-28] MEDS: IPRATROPIUM BROMIDE 0.5 MG/2.5 ML NEBU NEB SCH ×6 (02:40→23:00)
[2017-10-28] MEDS: ALBUTEROL SULFATE 2.5 MG/3 ML NEBU NEB SCH ×6 (02:40→23:00)
[2017-10-28] MEDS: CHOLECALCIFEROL 1,000 UNIT TABLET GT SCH (05:36)
[2017-10-28] MEDS: BACLOFEN 10 MG TABLET GT SCH ×3 (05:36→21:53)
[2017-10-28] MEDS: BUDESONIDE 0.5 MG/2 ML NEBU NEB SCH ×2 (07:45→19:16)
[2017-10-28 08:05] VITALS: BP 110/72
[2017-10-28] MEDS: HYDROGEN PEROXIDE 3% 118 ML BOTTLE TP SCH ×2 (09:05→21:52)
[2017-10-28] MEDS: DOCUSATE SODIUM 100 MG/10 ML LIQUID UDC GT SCH ×2 (09:05→21:52)
[2017-10-28] MEDS: CALCIUM CARBONATE 500 MG TABLET GT SCH ×2 (09:05→21:52)
[2017-10-28] MEDS: NUTRISOURCE FIBER 4 GM PACKET GT SCH ×2 (09:05→21:52)
[2017-10-28] MEDS: COD LIVER OIL/ZINC OXIDE OINT 113 GM TUBE TOP SCH ×2 (09:05→21:52)
[2017-10-28] MEDS: CALMOSEPTINE 113 GM OINTMENT TP SCH ×2 (09:05→21:52)
[2017-10-28] MEDS: ATORVASTATIN 10 MG TABLET GT SCH (21:52)
[2017-10-28 22:00] VITALS: BP 107/67
[2017-10-28] MEDS: FIBERSOURCE HN 1000ML LIQUID GT PRN (22:49)
[2017-10-29] MEDS: IPRATROPIUM BROMIDE 0.5 MG/2.5 ML NEBU NEB SCH ×6 (02:40→22:48)
[2017-10-29] MEDS: ALBUTEROL SULFATE 2.5 MG/3 ML NEBU NEB SCH ×6 (02:40→22:48)
[2017-10-29] MEDS: CHOLECALCIFEROL 1,000 UNIT TABLET GT SCH (05:54)
[2017-10-29] MEDS: BACLOFEN 10 MG TABLET GT SCH ×3 (05:54→22:13)
[2017-10-29 08:00] VITALS: BP 102/60
[2017-10-29] MEDS: BUDESONIDE 0.5 MG/2 ML NEBU NEB SCH ×2 (08:07→19:56)
[2017-10-29] MEDS: ECONAZOLE TP SCH (09:00)
[2017-10-29] MEDS: NUTRISOURCE FIBER 4 GM PACKET GT SCH ×2 (09:01→21:00)
[2017-10-29] MEDS: DOCUSATE SODIUM 100 MG/10 ML LIQUID UDC GT SCH ×2 (09:01→21:00)
[2017-10-29] MEDS: COD LIVER OIL/ZINC OXIDE OINT 113 GM TUBE TOP SCH ×2 (09:01→21:00)
[2017-10-29] MEDS: CALCIUM CARBONATE 500 MG TABLET GT SCH ×2 (09:01→21:00)
[2017-10-29] MEDS: HYDROGEN PEROXIDE 3% 118 ML BOTTLE TP SCH ×2 (09:02→21:00)
[2017-10-29] MEDS: CALMOSEPTINE 113 GM OINTMENT TP SCH ×2 (09:02→21:00)
--- NOTE | 2017-10-29 11:03 | NUR ---
Seen by Dorothy Rodriguez, notified of fungal rashes on buttocks, order given to start Diflucan 150mg gt daily x7 days and econazole cream to buttocks qshift x21 days.
[2017-10-29] MEDS ORDERED: FLUCONAZOLE 100 MG TABLET GT ONE (14:00)
[2017-10-29] MEDS: ATORVASTATIN 10 MG TABLET GT SCH (21:00)
[2017-10-29] MEDS: MULTIVIT, IRON, MIN NO. 8, FA TABLET GT SCH (21:00)
[2017-10-29 21:32] VITALS: BP 99/59
[2017-10-30] MEDS: FIBERSOURCE HN 1000ML LIQUID GT PRN (02:18)
[2017-10-30] MEDS: ALBUTEROL SULFATE 2.5 MG/3 ML NEBU NEB SCH ×6 (03:16→22:43)
[2017-10-30] MEDS: IPRATROPIUM BROMIDE 0.5 MG/2.5 ML NEBU NEB SCH ×6 (03:16→22:43)
[2017-10-30] MEDS: CHOLECALCIFEROL 1,000 UNIT TABLET GT SCH (06:49)
[2017-10-30] MEDS: BACLOFEN 10 MG TABLET GT SCH ×3 (06:49→21:16)
--- NOTE | 2017-10-30 07:14 | NUR ---
SEEN BY FRANCIA JESUS WITH NNO.
[2017-10-30] MEDS: BUDESONIDE 0.5 MG/2 ML NEBU NEB SCH ×2 (07:16→20:26)
[2017-10-30 08:00] VITALS: BP 112/73
[2017-10-30] MEDS: NUTRISOURCE FIBER 4 GM PACKET GT SCH ×2 (09:00→21:15)
[2017-10-30] MEDS: COD LIVER OIL/ZINC OXIDE OINT 113 GM TUBE TOP SCH ×2 (09:00→21:15)
[2017-10-30] MEDS: HYDROGEN PEROXIDE 3% 118 ML BOTTLE TP SCH ×2 (09:00→21:15)
[2017-10-30] MEDS: ECONAZOLE TP SCH ×2 (09:00→21:16)
[2017-10-30] MEDS: CALMOSEPTINE 113 GM OINTMENT TP SCH ×2 (09:00→21:15)
[2017-10-30] MEDS: DOCUSATE SODIUM 100 MG/10 ML LIQUID UDC GT SCH ×2 (09:00→21:14)
[2017-10-30] MEDS: CALCIUM CARBONATE 500 MG TABLET GT SCH ×2 (09:00→21:15)
[2017-10-30] MEDS: FLUCONAZOLE 150 MG TAB GT SCH (13:41)
[2017-10-30] MEDS ORDERED: FLUCONAZOLE 100 MG TABLET GT SCH (14:00)
--- NOTE | 2017-10-30 14:19 | NUR ---
INTERDISCIPLINARY PLAN OF CARE CONFERENCE was held today. Patient's family was invited to the meeting, but they live out of state and are unable to attend. Dr. Underwood and the Interdisciplinary Team reviewed the current plan of care in detail. RN provided updates on patient's medical condition and recent changes in medications. See RN IDT conference notes. No major changes were reported. See also all other disciplines IDT notes and physician's progress notes for additional details.
--- NOTE | 2017-10-30 17:44 | NUR ---
Pharmacy Update from Today's 10/30/17 IDT Meeting: VS: Temp 98 BP 117/81 HR 74 LABS: (from 02/20/17, no new) Wbc 5.4H/H 13.5/40.8Plt 139 Na 141K 3.5Cl 104CO2 31BUN/SCr 12/0.7 BS 127 MEDICATION USE REVIEWED: > Pt not on any anti-psych or anti-seizure medications > PRN MED USAGE: (Sep) Tylenol for pain used x 0 Tylenol for temp used x 0 Bisacodyl PRN x2 NEW ORDERS NOTED: > Econazole cream 10/29-11/19 for fungal rash on buttocks (previously on clotrimazole 1% cream till 10/18) > Fluconazole 150mg daily 10/27-11/04 for fungal rash on buttocks Pt was reviewed and discussed in depth, no medication concerns or issues reported at this time, will continue to follow
[2017-10-30 20:00] VITALS: BP 118/77
[2017-10-30] MEDS: ATORVASTATIN 10 MG TABLET GT SCH (21:15)
[2017-10-31] MEDS: IPRATROPIUM BROMIDE 0.5 MG/2.5 ML NEBU NEB SCH ×6 (03:01→22:40)
[2017-10-31] MEDS: ALBUTEROL SULFATE 2.5 MG/3 ML NEBU NEB SCH ×6 (03:01→22:40)
[2017-10-31] MEDS: BACLOFEN 10 MG TABLET GT SCH ×3 (05:36→21:44)
[2017-10-31] MEDS: CHOLECALCIFEROL 1,000 UNIT TABLET GT SCH (05:36)
[2017-10-31] MEDS: BUDESONIDE 0.5 MG/2 ML NEBU NEB SCH ×2 (07:39→19:42)
[2017-10-31 08:00] VITALS: BP 120/82
[2017-10-31] MEDS: NUTRISOURCE FIBER 4 GM PACKET GT SCH ×2 (08:42→20:54)
[2017-10-31] MEDS: DOCUSATE SODIUM 100 MG/10 ML LIQUID UDC GT SCH ×2 (08:42→20:54)
[2017-10-31] MEDS: CALCIUM CARBONATE 500 MG TABLET GT SCH ×2 (08:42→20:54)
[2017-10-31] MEDS: COD LIVER OIL/ZINC OXIDE OINT 113 GM TUBE TOP SCH ×2 (08:42→20:54)
[2017-10-31] MEDS: CALMOSEPTINE 113 GM OINTMENT TP SCH ×2 (08:42→20:54)
[2017-10-31] MEDS: HYDROGEN PEROXIDE 3% 118 ML BOTTLE TP SCH ×2 (08:42→20:54)
[2017-10-31] MEDS: ECONAZOLE TP SCH ×2 (08:43→20:54)
[2017-10-31] MEDS: FLUCONAZOLE 150 MG TAB GT SCH (13:45)
[2017-10-31] MEDS: ATORVASTATIN 10 MG TABLET GT SCH (20:54)
[2017-10-31] MEDS: MULTIVIT, IRON, MIN NO. 8, FA TABLET GT SCH (20:54)
[2017-10-31 22:55] VITALS: BP 108/60
[2017-11-01] MEDS: ALBUTEROL SULFATE 2.5 MG/3 ML NEBU NEB SCH ×6 (02:39→22:47)
[2017-11-01] MEDS: IPRATROPIUM BROMIDE 0.5 MG/2.5 ML NEBU NEB SCH ×6 (02:39→22:47)
--- NOTE | 2017-11-01 03:39 | NUR ---
Still on Diflucan via gt for fungal rash, no adverse reactions noted, afebrile, good skin care done, kept clean and comfortable.
[2017-11-01] MEDS: FIBERSOURCE HN 1000ML LIQUID GT PRN (03:56)
[2017-11-01] MEDS: BACLOFEN 10 MG TABLET GT SCH ×3 (06:06→21:04)
[2017-11-01] MEDS: CHOLECALCIFEROL 1,000 UNIT TABLET GT SCH (06:06)
[2017-11-01 08:00] VITALS: BP 118/73
[2017-11-01] MEDS: BUDESONIDE 0.5 MG/2 ML NEBU NEB SCH ×2 (08:10→20:04)
[2017-11-01] MEDS: DOCUSATE SODIUM 100 MG/10 ML LIQUID UDC GT SCH ×2 (09:00→21:02)
[2017-11-01] MEDS: NUTRISOURCE FIBER 4 GM PACKET GT SCH ×2 (09:55→21:03)
[2017-11-01] MEDS: CALCIUM CARBONATE 500 MG TABLET GT SCH ×2 (09:55→21:04)
[2017-11-01] MEDS: HYDROGEN PEROXIDE 3% 118 ML BOTTLE TP SCH ×2 (09:56→21:04)
[2017-11-01] MEDS: COD LIVER OIL/ZINC OXIDE OINT 113 GM TUBE TOP SCH ×2 (09:56→21:04)
[2017-11-01] MEDS: ECONAZOLE TP SCH ×2 (09:56→21:04)
[2017-11-01] MEDS: CALMOSEPTINE 113 GM OINTMENT TP SCH ×2 (09:56→21:04)
[2017-11-01] MEDS: FLUCONAZOLE 150 MG TAB GT SCH (14:00)
[2017-11-01 20:00] VITALS: BP 109/83
[2017-11-01] MEDS: ATORVASTATIN 10 MG TABLET GT SCH (21:03)
[2017-11-02] MEDS: ALBUTEROL SULFATE 2.5 MG/3 ML NEBU NEB SCH ×6 (03:47→23:10)
[2017-11-02] MEDS: IPRATROPIUM BROMIDE 0.5 MG/2.5 ML NEBU NEB SCH ×6 (03:47→23:10)
[2017-11-02] MEDS: CHOLECALCIFEROL 1,000 UNIT TABLET GT SCH (05:57)
[2017-11-02] MEDS: BACLOFEN 10 MG TABLET GT SCH ×3 (05:57→21:46)
[2017-11-02] MEDS: BUDESONIDE 0.5 MG/2 ML NEBU NEB SCH ×2 (07:11→20:00)
[2017-11-02 08:04] VITALS: BP 113/73
[2017-11-02] MEDS: COD LIVER OIL/ZINC OXIDE OINT 113 GM TUBE TOP SCH ×2 (08:37→21:46)
[2017-11-02] MEDS: CALMOSEPTINE 113 GM OINTMENT TP SCH ×2 (08:37→21:46)
[2017-11-02] MEDS: CALCIUM CARBONATE 500 MG TABLET GT SCH ×2 (08:37→21:46)
[2017-11-02] MEDS: DOCUSATE SODIUM 100 MG/10 ML LIQUID UDC GT SCH ×2 (08:37→21:45)
[2017-11-02] MEDS: NUTRISOURCE FIBER 4 GM PACKET GT SCH ×2 (08:37→21:45)
[2017-11-02] MEDS: ECONAZOLE TP SCH ×2 (08:38→21:46)
[2017-11-02] MEDS: HYDROGEN PEROXIDE 3% 118 ML BOTTLE TP SCH ×2 (08:38→21:46)
[2017-11-02] MEDS: FLUCONAZOLE 150 MG TAB GT SCH (14:40)
[2017-11-02 20:00] VITALS: BP 125/83
[2017-11-02] MEDS: ATORVASTATIN 10 MG TABLET GT SCH (21:45)
[2017-11-02] MEDS: MULTIVIT, IRON, MIN NO. 8, FA TABLET GT SCH (21:46)
[2017-11-03] MEDS: IPRATROPIUM BROMIDE 0.5 MG/2.5 ML NEBU NEB SCH ×6 (03:35→22:44)
[2017-11-03] MEDS: ALBUTEROL SULFATE 2.5 MG/3 ML NEBU NEB SCH ×6 (03:35→22:44)
[2017-11-03] MEDS: BACLOFEN 10 MG TABLET GT SCH ×3 (06:03→22:25)
[2017-11-03] MEDS: CHOLECALCIFEROL 1,000 UNIT TABLET GT SCH (06:03)
[2017-11-03] MEDS: BUDESONIDE 0.5 MG/2 ML NEBU NEB SCH ×2 (06:40→20:03)
[2017-11-03 08:00] VITALS: BP 124/69
[2017-11-03] MEDS: HYDROGEN PEROXIDE 3% 118 ML BOTTLE TP SCH ×2 (09:30→21:00)
[2017-11-03] MEDS: NUTRISOURCE FIBER 4 GM PACKET GT SCH ×2 (09:30→21:00)
[2017-11-03] MEDS: CALCIUM CARBONATE 500 MG TABLET GT SCH ×2 (09:30→21:00)
[2017-11-03] MEDS: COD LIVER OIL/ZINC OXIDE OINT 113 GM TUBE TOP SCH ×2 (09:30→21:00)
[2017-11-03] MEDS: CALMOSEPTINE 113 GM OINTMENT TP SCH ×2 (09:30→21:00)
[2017-11-03] MEDS: ECONAZOLE TP SCH ×2 (09:30→21:00)
[2017-11-03] MEDS: DOCUSATE SODIUM 100 MG/10 ML LIQUID UDC GT SCH ×2 (09:30→21:00)
[2017-11-03] MEDS: FIBERSOURCE HN 1000ML LIQUID GT PRN (12:09)
[2017-11-03] MEDS: FLUCONAZOLE 150 MG TAB GT SCH (14:12)
[2017-11-03 20:00] VITALS: BP 123/74
[2017-11-03] MEDS: ATORVASTATIN 10 MG TABLET GT SCH (21:00)
[2017-11-04] MEDS: IPRATROPIUM BROMIDE 0.5 MG/2.5 ML NEBU NEB SCH ×6 (03:11→22:50)
[2017-11-04] MEDS: ALBUTEROL SULFATE 2.5 MG/3 ML NEBU NEB SCH ×6 (03:11→22:50)
[2017-11-04] MEDS: BACLOFEN 10 MG TABLET GT SCH ×3 (06:51→21:49)
[2017-11-04] MEDS: CHOLECALCIFEROL 1,000 UNIT TABLET GT SCH (06:51)
[2017-11-04] MEDS: BUDESONIDE 0.5 MG/2 ML NEBU NEB SCH ×2 (07:07→19:18)
[2017-11-04 08:04] VITALS: BP 103/70
[2017-11-04] MEDS: CALMOSEPTINE 113 GM OINTMENT TP SCH ×2 (08:41→21:49)
[2017-11-04] MEDS: HYDROGEN PEROXIDE 3% 118 ML BOTTLE TP SCH ×2 (08:41→21:49)
[2017-11-04] MEDS: DOCUSATE SODIUM 100 MG/10 ML LIQUID UDC GT SCH ×2 (08:41→21:49)
[2017-11-04] MEDS: NUTRISOURCE FIBER 4 GM PACKET GT SCH ×2 (08:41→21:49)
[2017-11-04] MEDS: COD LIVER OIL/ZINC OXIDE OINT 113 GM TUBE TOP SCH ×2 (08:41→21:49)
[2017-11-04] MEDS: CALCIUM CARBONATE 500 MG TABLET GT SCH ×2 (08:41→21:49)
[2017-11-04] MEDS: ECONAZOLE TP SCH ×2 (08:41→21:49)
[2017-11-04] MEDS: FLUCONAZOLE 150 MG TAB GT SCH (14:00)
[2017-11-04 20:52] VITALS: BP 115/64
[2017-11-04] MEDS: ATORVASTATIN 10 MG TABLET GT SCH (21:49)
[2017-11-04] MEDS: MULTIVIT, IRON, MIN NO. 8, FA TABLET GT SCH (21:49)
[2017-11-05] MEDS: ALBUTEROL SULFATE 2.5 MG/3 ML NEBU NEB SCH ×6 (02:46→22:40)
[2017-11-05] MEDS: IPRATROPIUM BROMIDE 0.5 MG/2.5 ML NEBU NEB SCH ×6 (02:46→22:40)
[2017-11-05] MEDS: CHOLECALCIFEROL 1,000 UNIT TABLET GT SCH (06:57)
[2017-11-05] MEDS: BACLOFEN 10 MG TABLET GT SCH ×3 (06:57→21:31)
--- NOTE | 2017-11-05 07:57 | NUR ---
SEEN BY FRANCIA JETER.
[2017-11-05 08:00] VITALS: BP 120/55
[2017-11-05] MEDS: BUDESONIDE 0.5 MG/2 ML NEBU NEB SCH ×2 (08:11→19:57)
[2017-11-05] MEDS: ECONAZOLE TP SCH ×2 (09:05→21:31)
[2017-11-05] MEDS: COD LIVER OIL/ZINC OXIDE OINT 113 GM TUBE TOP SCH ×2 (09:05→21:31)
[2017-11-05] MEDS: CALMOSEPTINE 113 GM OINTMENT TP SCH ×2 (09:05→21:31)
[2017-11-05] MEDS: NUTRISOURCE FIBER 4 GM PACKET GT SCH ×2 (09:05→21:31)
[2017-11-05] MEDS: HYDROGEN PEROXIDE 3% 118 ML BOTTLE TP SCH ×2 (09:05→21:31)
[2017-11-05] MEDS: CALCIUM CARBONATE 500 MG TABLET GT SCH ×2 (09:05→21:31)
[2017-11-05] MEDS: DOCUSATE SODIUM 100 MG/10 ML LIQUID UDC GT SCH ×2 (09:05→21:31)
[2017-11-05] MEDS: FIBERSOURCE HN 1000ML LIQUID GT PRN (11:31)
--- NOTE | 2017-11-05 15:14 | NUR ---
SEEN BY GARETH JETER.
[2017-11-05 21:14] VITALS: BP 117/69
[2017-11-05] MEDS: ATORVASTATIN 10 MG TABLET GT SCH (21:31)
[2017-11-06] MEDS: IPRATROPIUM BROMIDE 0.5 MG/2.5 ML NEBU NEB SCH ×6 (03:17→22:40)
[2017-11-06] MEDS: ALBUTEROL SULFATE 2.5 MG/3 ML NEBU NEB SCH ×6 (03:17→22:40)
[2017-11-06] MEDS: BACLOFEN 10 MG TABLET GT SCH ×3 (05:41→21:28)
[2017-11-06] MEDS: CHOLECALCIFEROL 1,000 UNIT TABLET GT SCH (05:41)
[2017-11-06 08:00] VITALS: BP 111/68
[2017-11-06] MEDS: BUDESONIDE 0.5 MG/2 ML NEBU NEB SCH ×2 (08:30→19:55)
[2017-11-06] MEDS: CALMOSEPTINE 113 GM OINTMENT TP SCH ×2 (09:00→21:28)
[2017-11-06] MEDS: COD LIVER OIL/ZINC OXIDE OINT 113 GM TUBE TOP SCH ×2 (09:00→21:28)
[2017-11-06] MEDS: NUTRISOURCE FIBER 4 GM PACKET GT SCH ×2 (09:00→21:27)
[2017-11-06] MEDS: ECONAZOLE TP SCH ×2 (09:00→21:28)
[2017-11-06] MEDS: DOCUSATE SODIUM 100 MG/10 ML LIQUID UDC GT SCH ×2 (09:00→21:27)
[2017-11-06] MEDS: HYDROGEN PEROXIDE 3% 118 ML BOTTLE TP SCH ×2 (09:00→21:28)
[2017-11-06] MEDS: CALCIUM CARBONATE 500 MG TABLET GT SCH ×2 (09:00→21:28)
[2017-11-06] MEDS: FIBERSOURCE HN 1000ML LIQUID GT PRN (12:30)
[2017-11-06 20:34] VITALS: BP 103/62
[2017-11-06] MEDS: ATORVASTATIN 10 MG TABLET GT SCH (21:27)
[2017-11-06] MEDS: MULTIVIT, IRON, MIN NO. 8, FA TABLET GT SCH (21:28)
[2017-11-07] MEDS: IPRATROPIUM BROMIDE 0.5 MG/2.5 ML NEBU NEB SCH ×6 (02:34→22:50)
[2017-11-07] MEDS: ALBUTEROL SULFATE 2.5 MG/3 ML NEBU NEB SCH ×6 (02:34→22:50)
[2017-11-07] MEDS: BACLOFEN 10 MG TABLET GT SCH ×3 (05:53→21:07)
[2017-11-07] MEDS: CHOLECALCIFEROL 1,000 UNIT TABLET GT SCH (05:53)
[2017-11-07] MEDS: BUDESONIDE 0.5 MG/2 ML NEBU NEB SCH ×2 (07:47→19:26)
[2017-11-07 08:00] VITALS: BP 130/76
--- NOTE | 2017-11-07 08:00 | NUR ---
SEEN BY FRANCIA JETER.
[2017-11-07] MEDS: NUTRISOURCE FIBER 4 GM PACKET GT SCH ×2 (08:44→21:07)
[2017-11-07] MEDS: CALCIUM CARBONATE 500 MG TABLET GT SCH ×2 (08:44→21:07)
[2017-11-07] MEDS: ECONAZOLE TP SCH ×2 (08:44→21:07)
[2017-11-07] MEDS: COD LIVER OIL/ZINC OXIDE OINT 113 GM TUBE TOP SCH ×2 (08:44→21:07)
[2017-11-07] MEDS: DOCUSATE SODIUM 100 MG/10 ML LIQUID UDC GT SCH ×2 (08:44→21:06)
[2017-11-07] MEDS: CALMOSEPTINE 113 GM OINTMENT TP SCH ×2 (08:44→21:07)
[2017-11-07] MEDS: HYDROGEN PEROXIDE 3% 118 ML BOTTLE TP SCH ×2 (08:44→21:07)
--- NOTE | 2017-11-07 14:18 | NUR ---
SEEN BY GARETH JETER.
[2017-11-07 20:00] VITALS: BP 110/67
[2017-11-07] MEDS: ATORVASTATIN 10 MG TABLET GT SCH (21:06)
[2017-11-08] MEDS: IPRATROPIUM BROMIDE 0.5 MG/2.5 ML NEBU NEB SCH ×6 (02:40→22:34)
[2017-11-08] MEDS: ALBUTEROL SULFATE 2.5 MG/3 ML NEBU NEB SCH ×6 (02:40→22:34)
[2017-11-08] MEDS: CHOLECALCIFEROL 1,000 UNIT TABLET GT SCH (05:34)
[2017-11-08] MEDS: BACLOFEN 10 MG TABLET GT SCH ×3 (05:34→21:58)
[2017-11-08 08:00] VITALS: BP 126/70
[2017-11-08] MEDS: BUDESONIDE 0.5 MG/2 ML NEBU NEB SCH ×2 (08:05→19:52)
[2017-11-08] MEDS: CALMOSEPTINE 113 GM OINTMENT TP SCH ×2 (09:16→21:58)
[2017-11-08] MEDS: NUTRISOURCE FIBER 4 GM PACKET GT SCH ×2 (09:16→21:57)
[2017-11-08] MEDS: HYDROGEN PEROXIDE 3% 118 ML BOTTLE TP SCH ×2 (09:16→21:58)
[2017-11-08] MEDS: CALCIUM CARBONATE 500 MG TABLET GT SCH ×2 (09:16→21:57)
[2017-11-08] MEDS: DOCUSATE SODIUM 100 MG/10 ML LIQUID UDC GT SCH ×2 (09:16→21:57)
[2017-11-08] MEDS: COD LIVER OIL/ZINC OXIDE OINT 113 GM TUBE TOP SCH ×2 (09:16→21:57)
[2017-11-08] MEDS: ECONAZOLE TP SCH ×2 (09:16→21:58)
[2017-11-08 20:10] VITALS: BP 121/83
[2017-11-08] MEDS: MULTIVIT, IRON, MIN NO. 8, FA TABLET GT SCH (21:57)
[2017-11-08] MEDS: ATORVASTATIN 10 MG TABLET GT SCH (21:57)
[2017-11-09] MEDS: ALBUTEROL SULFATE 2.5 MG/3 ML NEBU NEB SCH ×6 (02:30→23:22)
[2017-11-09] MEDS: IPRATROPIUM BROMIDE 0.5 MG/2.5 ML NEBU NEB SCH ×6 (02:30→23:22)
[2017-11-09] MEDS: CHOLECALCIFEROL 1,000 UNIT TABLET GT SCH (05:49)
[2017-11-09] MEDS: BACLOFEN 10 MG TABLET GT SCH ×3 (05:49→21:23)
[2017-11-09] MEDS: BUDESONIDE 0.5 MG/2 ML NEBU NEB SCH ×2 (07:55→20:10)
[2017-11-09 08:00] VITALS: BP 100/57
[2017-11-09] MEDS: CALCIUM CARBONATE 500 MG TABLET GT SCH ×2 (08:14→21:23)
[2017-11-09] MEDS: NUTRISOURCE FIBER 4 GM PACKET GT SCH ×2 (08:14→21:23)
[2017-11-09] MEDS: ECONAZOLE TP SCH ×2 (08:14→21:23)
[2017-11-09] MEDS: HYDROGEN PEROXIDE 3% 118 ML BOTTLE TP SCH ×2 (08:14→21:23)
[2017-11-09] MEDS: CALMOSEPTINE 113 GM OINTMENT TP SCH ×2 (08:14→21:23)
[2017-11-09] MEDS: DOCUSATE SODIUM 100 MG/10 ML LIQUID UDC GT SCH ×2 (08:14→21:23)
[2017-11-09] MEDS: ATORVASTATIN 10 MG TABLET GT SCH (21:23)
[2017-11-09 22:29] VITALS: BP 118/75
[2017-11-10] MEDS: IPRATROPIUM BROMIDE 0.5 MG/2.5 ML NEBU NEB SCH ×6 (03:27→22:48)
[2017-11-10] MEDS: ALBUTEROL SULFATE 2.5 MG/3 ML NEBU NEB SCH ×6 (03:27→22:48)
[2017-11-10] MEDS: CHOLECALCIFEROL 1,000 UNIT TABLET GT SCH (06:24)
[2017-11-10] MEDS: BACLOFEN 10 MG TABLET GT SCH ×3 (06:24→21:37)
[2017-11-10] MEDS: BUDESONIDE 0.5 MG/2 ML NEBU NEB SCH ×2 (07:05→19:35)
[2017-11-10 08:07] VITALS: BP 122/72
[2017-11-10] MEDS: CALMOSEPTINE 113 GM OINTMENT TP SCH ×2 (08:54→21:37)
[2017-11-10] MEDS: CALCIUM CARBONATE 500 MG TABLET GT SCH ×2 (08:54→21:36)
[2017-11-10] MEDS: DOCUSATE SODIUM 100 MG/10 ML LIQUID UDC GT SCH ×2 (08:54→21:35)
[2017-11-10] MEDS: NUTRISOURCE FIBER 4 GM PACKET GT SCH ×2 (08:54→21:36)
[2017-11-10] MEDS: ECONAZOLE TP SCH ×2 (08:55→21:37)
[2017-11-10] MEDS: HYDROGEN PEROXIDE 3% 118 ML BOTTLE TP SCH ×2 (08:55→21:37)
[2017-11-10] MEDS: FIBERSOURCE HN 1000ML LIQUID GT PRN (19:03)
[2017-11-10 20:46] VITALS: BP 118/82
[2017-11-10] MEDS: ATORVASTATIN 10 MG TABLET GT SCH (21:35)
[2017-11-10] MEDS: MULTIVIT, IRON, MIN NO. 8, FA TABLET GT SCH (21:36)
[2017-11-11] MEDS: IPRATROPIUM BROMIDE 0.5 MG/2.5 ML NEBU NEB SCH ×6 (02:30→22:40)
[2017-11-11] MEDS: ALBUTEROL SULFATE 2.5 MG/3 ML NEBU NEB SCH ×6 (02:30→22:40)
[2017-11-11] MEDS: BACLOFEN 10 MG TABLET GT SCH ×3 (05:21→21:38)
[2017-11-11] MEDS: CHOLECALCIFEROL 1,000 UNIT TABLET GT SCH (05:22)
[2017-11-11 08:00] VITALS: BP 102/56
[2017-11-11] MEDS: BUDESONIDE 0.5 MG/2 ML NEBU NEB SCH ×2 (08:10→19:16)
[2017-11-11] MEDS: ECONAZOLE TP SCH ×2 (09:05→20:27)
[2017-11-11] MEDS: HYDROGEN PEROXIDE 3% 118 ML BOTTLE TP SCH ×2 (09:05→20:27)
[2017-11-11] MEDS: NUTRISOURCE FIBER 4 GM PACKET GT SCH ×2 (09:05→20:26)
[2017-11-11] MEDS: DOCUSATE SODIUM 100 MG/10 ML LIQUID UDC GT SCH ×2 (09:05→20:26)
[2017-11-11] MEDS: CALCIUM CARBONATE 500 MG TABLET GT SCH ×2 (09:05→20:27)
[2017-11-11] MEDS: CALMOSEPTINE 113 GM OINTMENT TP SCH ×2 (09:05→20:27)
[2017-11-11 20:00] VITALS: BP 101/65
[2017-11-11] MEDS: ATORVASTATIN 10 MG TABLET GT SCH (20:26)
[2017-11-11] MEDS: FIBERSOURCE HN 1000ML LIQUID GT PRN (22:07)
[2017-11-12] MEDS: IPRATROPIUM BROMIDE 0.5 MG/2.5 ML NEBU NEB SCH ×5 (02:30→23:21)
[2017-11-12] MEDS: ALBUTEROL SULFATE 2.5 MG/3 ML NEBU NEB SCH ×5 (02:30→23:21)
[2017-11-12] MEDS: CHOLECALCIFEROL 1,000 UNIT TABLET GT SCH (06:00)
[2017-11-12] MEDS: BACLOFEN 10 MG TABLET GT SCH ×3 (06:00→21:07)
[2017-11-12] MEDS: BUDESONIDE 0.5 MG/2 ML NEBU NEB SCH ×2 (07:16→20:01)
[2017-11-12 08:00] VITALS: BP 99/54
[2017-11-12] MEDS: ECONAZOLE TP SCH ×2 (08:23→21:07)
[2017-11-12] MEDS: HYDROGEN PEROXIDE 3% 118 ML BOTTLE TP SCH ×2 (08:23→21:07)
[2017-11-12] MEDS: NUTRISOURCE FIBER 4 GM PACKET GT SCH ×2 (08:23→21:06)
[2017-11-12] MEDS: CALCIUM CARBONATE 500 MG TABLET GT SCH ×2 (08:23→21:06)
[2017-11-12] MEDS: DOCUSATE SODIUM 100 MG/10 ML LIQUID UDC GT SCH ×2 (08:23→21:06)
[2017-11-12] MEDS: CALMOSEPTINE 113 GM OINTMENT TP SCH ×2 (08:23→21:07)
[2017-11-12 20:16] VITALS: BP 131/66
[2017-11-12] MEDS: ATORVASTATIN 10 MG TABLET GT SCH (21:06)
[2017-11-12] MEDS: MULTIVIT, IRON, MIN NO. 8, FA TABLET GT SCH (21:06)
[2017-11-13] MEDS: IPRATROPIUM BROMIDE 0.5 MG/2.5 ML NEBU NEB SCH ×6 (03:23→22:40)
[2017-11-13] MEDS: ALBUTEROL SULFATE 2.5 MG/3 ML NEBU NEB SCH ×6 (03:23→22:40)
[2017-11-13] MEDS: CHOLECALCIFEROL 1,000 UNIT TABLET GT SCH (06:08)
[2017-11-13] MEDS: BACLOFEN 10 MG TABLET GT SCH ×3 (06:08→21:37)
[2017-11-13 08:00] VITALS: BP 119/60
[2017-11-13] MEDS: BUDESONIDE 0.5 MG/2 ML NEBU NEB SCH ×2 (08:09→18:55)
[2017-11-13] MEDS: DOCUSATE SODIUM 100 MG/10 ML LIQUID UDC GT SCH ×2 (08:44→20:48)
[2017-11-13] MEDS: CALCIUM CARBONATE 500 MG TABLET GT SCH ×2 (08:44→20:49)
[2017-11-13] MEDS: NUTRISOURCE FIBER 4 GM PACKET GT SCH ×2 (08:44→20:49)
[2017-11-13] MEDS: CALMOSEPTINE 113 GM OINTMENT TP SCH ×2 (08:45→20:49)
[2017-11-13] MEDS: HYDROGEN PEROXIDE 3% 118 ML BOTTLE TP SCH ×2 (08:45→20:49)
[2017-11-13] MEDS: ECONAZOLE TP SCH ×2 (08:45→20:49)
[2017-11-13 20:20] VITALS: BP 120/79
[2017-11-13] MEDS: ATORVASTATIN 10 MG TABLET GT SCH (20:48)
[2017-11-14] MEDS: FIBERSOURCE HN 1000ML LIQUID GT PRN (02:38)
[2017-11-14] MEDS: ALBUTEROL SULFATE 2.5 MG/3 ML NEBU NEB SCH ×6 (02:58→22:55)
[2017-11-14] MEDS: IPRATROPIUM BROMIDE 0.5 MG/2.5 ML NEBU NEB SCH ×6 (02:58→22:55)
[2017-11-14] MEDS: BACLOFEN 10 MG TABLET GT SCH ×3 (05:57→22:02)
[2017-11-14] MEDS: CHOLECALCIFEROL 1,000 UNIT TABLET GT SCH (05:57)
[2017-11-14] MEDS: BUDESONIDE 0.5 MG/2 ML NEBU NEB SCH ×2 (07:08→20:25)
[2017-11-14] MEDS: CALCIUM CARBONATE 500 MG TABLET GT SCH ×2 (09:12→20:56)
[2017-11-14] MEDS: DOCUSATE SODIUM 100 MG/10 ML LIQUID UDC GT SCH ×2 (09:12→20:56)
[2017-11-14] MEDS: CALMOSEPTINE 113 GM OINTMENT TP SCH ×2 (09:12→20:56)
[2017-11-14] MEDS: NUTRISOURCE FIBER 4 GM PACKET GT SCH ×2 (09:12→20:56)
[2017-11-14] MEDS: ECONAZOLE TP SCH ×2 (09:13→20:56)
[2017-11-14] MEDS: HYDROGEN PEROXIDE 3% 118 ML BOTTLE TP SCH ×2 (09:13→20:56)
[2017-11-14 09:26] VITALS: BP 95/56
--- NOTE | 2017-11-14 19:05 | NUR ---
new tx orders for gt site redness,carried out.
[2017-11-14 20:07] VITALS: BP 104/65
[2017-11-14] MEDS: ATORVASTATIN 10 MG TABLET GT SCH (20:56)
[2017-11-14] MEDS: MULTIVIT, IRON, MIN NO. 8, FA TABLET GT SCH (20:56)
[2017-11-14] MEDS: COD LIVER OIL/ZINC OXIDE OINT 113 GM TUBE TP SCH (20:56)
[2017-11-15] MEDS: FIBERSOURCE HN 1000ML LIQUID GT PRN (01:27)
[2017-11-15] MEDS: IPRATROPIUM BROMIDE 0.5 MG/2.5 ML NEBU NEB SCH ×6 (03:02→22:46)
[2017-11-15] MEDS: ALBUTEROL SULFATE 2.5 MG/3 ML NEBU NEB SCH ×6 (03:02→22:46)
[2017-11-15] MEDS: BACLOFEN 10 MG TABLET GT SCH ×3 (05:08→21:15)
[2017-11-15] MEDS: CHOLECALCIFEROL 1,000 UNIT TABLET GT SCH (05:31)
[2017-11-15] MEDS: BUDESONIDE 0.5 MG/2 ML NEBU NEB SCH ×2 (08:00→20:01)
[2017-11-15] MEDS: DOCUSATE SODIUM 100 MG/10 ML LIQUID UDC GT SCH (08:08)
[2017-11-15] MEDS: NUTRISOURCE FIBER 4 GM PACKET GT SCH ×2 (08:09→20:46)
[2017-11-15] MEDS: CALCIUM CARBONATE 500 MG TABLET GT SCH ×2 (08:09→20:46)
[2017-11-15] MEDS: HYDROGEN PEROXIDE 3% 118 ML BOTTLE TP SCH ×2 (08:09→20:46)
[2017-11-15] MEDS: ECONAZOLE TP SCH ×2 (08:09→21:15)
[2017-11-15] MEDS: CALMOSEPTINE 113 GM OINTMENT TP SCH ×2 (08:09→20:46)
[2017-11-15] MEDS: COD LIVER OIL/ZINC OXIDE OINT 113 GM TUBE TP SCH ×2 (08:09→20:46)
[2017-11-15 11:44] VITALS: BP 97/61
--- NOTE | 2017-11-15 19:05 | NUR ---
NEW ORDER CARRIED OUT FROM DR. DOMINGUEZ,D/T PT. WAS OBSERVED WHEN COUGHING NOTED PUSHING OUT LOOSE STOOL ERODING BUTTOCKS SKIN AND AT RISK FOR SKIN BREAK DOWN.
[2017-11-15 20:06] VITALS: BP 104/66
[2017-11-15] MEDS: ATORVASTATIN 10 MG TABLET GT SCH (20:46)
[2017-11-16] MEDS: FIBERSOURCE HN 1000ML LIQUID GT PRN (02:45)
[2017-11-16] MEDS: ALBUTEROL SULFATE 2.5 MG/3 ML NEBU NEB SCH ×6 (03:19→22:40)
[2017-11-16] MEDS: IPRATROPIUM BROMIDE 0.5 MG/2.5 ML NEBU NEB SCH ×6 (03:19→22:40)
[2017-11-16] MEDS: BACLOFEN 10 MG TABLET GT SCH ×3 (05:09→21:42)
[2017-11-16] MEDS: CHOLECALCIFEROL 1,000 UNIT TABLET GT SCH (05:32)
[2017-11-16] MEDS: BUDESONIDE 0.5 MG/2 ML NEBU NEB SCH ×2 (07:30→19:15)
[2017-11-16] MEDS: DOCUSATE SODIUM 100 MG/10 ML LIQUID UDC GT SCH (08:42)
[2017-11-16] MEDS: CALMOSEPTINE 113 GM OINTMENT TP SCH ×2 (08:42→21:42)
[2017-11-16] MEDS: CALCIUM CARBONATE 500 MG TABLET GT SCH ×2 (08:42→21:42)
[2017-11-16] MEDS: NUTRISOURCE FIBER 4 GM PACKET GT SCH ×2 (08:42→21:42)
[2017-11-16] MEDS: COD LIVER OIL/ZINC OXIDE OINT 113 GM TUBE TP SCH ×2 (08:42→21:42)
[2017-11-16] MEDS: ECONAZOLE TP SCH ×2 (08:43→21:42)
[2017-11-16] MEDS: HYDROGEN PEROXIDE 3% 118 ML BOTTLE TP SCH ×2 (08:43→21:42)
[2017-11-16 10:21] VITALS: BP 90/51
[2017-11-16] MEDS: ATORVASTATIN 10 MG TABLET GT SCH (21:42)
[2017-11-16] MEDS: MULTIVIT, IRON, MIN NO. 8, FA TABLET GT SCH (21:42)
[2017-11-16 23:11] VITALS: BP 132/73
[2017-11-17] MEDS: IPRATROPIUM BROMIDE 0.5 MG/2.5 ML NEBU NEB SCH ×6 (02:45→22:43)
[2017-11-17] MEDS: ALBUTEROL SULFATE 2.5 MG/3 ML NEBU NEB SCH ×6 (02:45→22:43)
--- NOTE | 2017-11-17 02:57 | NUR ---
Replaced GT d/t dislodgment, tolerated procedure well, placement checked by aspirating a syringe and noted with yellowish abdominal contents and gurgling sound when air was introduced,kept patient clean and comfortable.
[2017-11-17] MEDS: FIBERSOURCE HN 1000ML LIQUID GT PRN (04:29)
[2017-11-17] MEDS: BACLOFEN 10 MG TABLET GT SCH ×3 (05:21→21:21)
[2017-11-17] MEDS: CHOLECALCIFEROL 1,000 UNIT TABLET GT SCH (05:37)
[2017-11-17] MEDS: BUDESONIDE 0.5 MG/2 ML NEBU NEB SCH ×2 (07:35→18:54)
[2017-11-17] MEDS: HYDROGEN PEROXIDE 3% 118 ML BOTTLE TP SCH ×2 (08:26→21:21)
[2017-11-17] MEDS: CALMOSEPTINE 113 GM OINTMENT TP SCH ×2 (08:26→21:21)
[2017-11-17] MEDS: COD LIVER OIL/ZINC OXIDE OINT 113 GM TUBE TP SCH ×2 (08:26→21:21)
[2017-11-17] MEDS: CALCIUM CARBONATE 500 MG TABLET GT SCH ×2 (08:26→21:21)
[2017-11-17] MEDS: NUTRISOURCE FIBER 4 GM PACKET GT SCH ×2 (08:26→21:21)
[2017-11-17] MEDS: ECONAZOLE TP SCH ×2 (08:26→21:21)
[2017-11-17] MEDS: DOCUSATE SODIUM 100 MG/10 ML LIQUID UDC GT SCH (08:26)
[2017-11-17 10:27] VITALS: BP 106/71
[2017-11-17] MEDS: ATORVASTATIN 10 MG TABLET GT SCH (21:21)
[2017-11-17 23:17] VITALS: BP 135/77
[2017-11-18] MEDS: ALBUTEROL SULFATE 2.5 MG/3 ML NEBU NEB SCH ×6 (02:31→22:40)
[2017-11-18] MEDS: IPRATROPIUM BROMIDE 0.5 MG/2.5 ML NEBU NEB SCH ×6 (02:31→22:40)
[2017-11-18] MEDS: FIBERSOURCE HN 1000ML LIQUID GT PRN (04:25)
[2017-11-18] MEDS: BACLOFEN 10 MG TABLET GT SCH ×3 (05:15→21:44)
[2017-11-18] MEDS: CHOLECALCIFEROL 1,000 UNIT TABLET GT SCH (06:06)
[2017-11-18] MEDS: BUDESONIDE 0.5 MG/2 ML NEBU NEB SCH ×2 (07:36→19:26)
[2017-11-18 08:00] VITALS: BP 118/70
[2017-11-18] MEDS: DOCUSATE SODIUM 100 MG/10 ML LIQUID UDC GT SCH (08:26)
[2017-11-18] MEDS: NUTRISOURCE FIBER 4 GM PACKET GT SCH ×2 (08:26→21:44)
[2017-11-18] MEDS: COD LIVER OIL/ZINC OXIDE OINT 113 GM TUBE TP SCH ×2 (08:27→21:44)
[2017-11-18] MEDS: HYDROGEN PEROXIDE 3% 118 ML BOTTLE TP SCH ×2 (08:27→21:44)
[2017-11-18] MEDS: ECONAZOLE TP SCH ×2 (08:27→21:44)
[2017-11-18] MEDS: CALMOSEPTINE 113 GM OINTMENT TP SCH ×2 (08:27→21:44)
[2017-11-18] MEDS: CALCIUM CARBONATE 500 MG TABLET GT SCH ×2 (08:27→21:44)
[2017-11-18] MEDS: MULTIVIT, IRON, MIN NO. 8, FA TABLET GT SCH (21:44)
[2017-11-18] MEDS: ATORVASTATIN 10 MG TABLET GT SCH (21:44)
[2017-11-18 22:42] VITALS: BP 106/65
[2017-11-19] MEDS: ALBUTEROL SULFATE 2.5 MG/3 ML NEBU NEB SCH ×6 (03:02→22:40)
[2017-11-19] MEDS: IPRATROPIUM BROMIDE 0.5 MG/2.5 ML NEBU NEB SCH ×6 (03:02→22:40)
[2017-11-19] MEDS: FIBERSOURCE HN 1000ML LIQUID GT PRN (03:54)
[2017-11-19] MEDS: BACLOFEN 10 MG TABLET GT SCH ×3 (05:53→21:45)
[2017-11-19] MEDS: CHOLECALCIFEROL 1,000 UNIT TABLET GT SCH (05:53)
[2017-11-19] MEDS: BUDESONIDE 0.5 MG/2 ML NEBU NEB SCH ×2 (07:06→19:16)
[2017-11-19 08:09] VITALS: BP 131/70
[2017-11-19] MEDS: HYDROGEN PEROXIDE 3% 118 ML BOTTLE TP SCH ×2 (08:40→21:45)
[2017-11-19] MEDS: COD LIVER OIL/ZINC OXIDE OINT 113 GM TUBE TP SCH ×2 (08:40→21:45)
[2017-11-19] MEDS: NUTRISOURCE FIBER 4 GM PACKET GT SCH ×2 (08:40→21:44)
[2017-11-19] MEDS: CALCIUM CARBONATE 500 MG TABLET GT SCH ×2 (08:40→21:44)
[2017-11-19] MEDS: ECONAZOLE TP SCH (08:40)
[2017-11-19] MEDS: DOCUSATE SODIUM 100 MG/10 ML LIQUID UDC GT SCH (08:40)
[2017-11-19] MEDS: CALMOSEPTINE 113 GM OINTMENT TP SCH ×2 (08:40→21:45)
[2017-11-19 20:00] VITALS: BP 118/79
[2017-11-19] MEDS: ATORVASTATIN 10 MG TABLET GT SCH (21:44)
[2017-11-20] MEDS: IPRATROPIUM BROMIDE 0.5 MG/2.5 ML NEBU NEB SCH ×6 (02:31→22:40)
[2017-11-20] MEDS: ALBUTEROL SULFATE 2.5 MG/3 ML NEBU NEB SCH ×6 (02:31→22:40)
[2017-11-20] MEDS: CHOLECALCIFEROL 1,000 UNIT TABLET GT SCH (05:33)
[2017-11-20] MEDS: BACLOFEN 10 MG TABLET GT SCH ×3 (05:33→21:01)
[2017-11-20] MEDS: FIBERSOURCE HN 1000ML LIQUID GT PRN (06:34)
[2017-11-20] MEDS: BUDESONIDE 0.5 MG/2 ML NEBU NEB SCH ×2 (07:13→19:15)
[2017-11-20 08:09] VITALS: BP 113/59
[2017-11-20] MEDS: CALMOSEPTINE 113 GM OINTMENT TP SCH ×2 (08:59→21:00)
[2017-11-20] MEDS: DOCUSATE SODIUM 100 MG/10 ML LIQUID UDC GT SCH (08:59)
[2017-11-20] MEDS: HYDROGEN PEROXIDE 3% 118 ML BOTTLE TP SCH ×2 (08:59→21:01)
[2017-11-20] MEDS: COD LIVER OIL/ZINC OXIDE OINT 113 GM TUBE TP SCH ×2 (08:59→21:00)
[2017-11-20] MEDS: NUTRISOURCE FIBER 4 GM PACKET GT SCH ×2 (08:59→20:59)
[2017-11-20] MEDS: CALCIUM CARBONATE 500 MG TABLET GT SCH ×2 (08:59→20:59)
[2017-11-20 20:00] VITALS: BP 115/76
[2017-11-20] MEDS: ATORVASTATIN 10 MG TABLET GT SCH (20:58)
[2017-11-20] MEDS: MULTIVIT, IRON, MIN NO. 8, FA TABLET GT SCH (20:59)
[2017-11-21] MEDS: ALBUTEROL SULFATE 2.5 MG/3 ML NEBU NEB SCH ×6 (02:30→22:41)
[2017-11-21] MEDS: IPRATROPIUM BROMIDE 0.5 MG/2.5 ML NEBU NEB SCH ×6 (02:30→22:41)
[2017-11-21] MEDS: BACLOFEN 10 MG TABLET GT SCH ×3 (06:05→21:18)
[2017-11-21] MEDS: CHOLECALCIFEROL 1,000 UNIT TABLET GT SCH (06:05)
[2017-11-21] MEDS: BUDESONIDE 0.5 MG/2 ML NEBU NEB SCH ×2 (07:05→20:07)
[2017-11-21 08:09] VITALS: BP 94/49
[2017-11-21] MEDS: DOCUSATE SODIUM 100 MG/10 ML LIQUID UDC GT SCH (09:08)
[2017-11-21] MEDS: NUTRISOURCE FIBER 4 GM PACKET GT SCH ×2 (09:08→21:18)
[2017-11-21] MEDS: COD LIVER OIL/ZINC OXIDE OINT 113 GM TUBE TP SCH ×2 (09:09→21:18)
[2017-11-21] MEDS: CALCIUM CARBONATE 500 MG TABLET GT SCH ×2 (09:09→21:18)
[2017-11-21] MEDS: HYDROGEN PEROXIDE 3% 118 ML BOTTLE TP SCH ×2 (09:09→21:18)
[2017-11-21] MEDS: CALMOSEPTINE 113 GM OINTMENT TP SCH ×2 (09:09→21:18)
--- NOTE | 2017-11-21 16:00 | NUR ---
seen and examined by Myrtle Shea,no new orders noted.
[2017-11-21 20:00] VITALS: BP 116/71
[2017-11-21] MEDS: ATORVASTATIN 10 MG TABLET GT SCH (21:18)
[2017-11-22] MEDS: ALBUTEROL SULFATE 2.5 MG/3 ML NEBU NEB SCH ×6 (02:30→23:02)
[2017-11-22] MEDS: IPRATROPIUM BROMIDE 0.5 MG/2.5 ML NEBU NEB SCH ×6 (02:30→23:02)
[2017-11-22] MEDS: FIBERSOURCE HN 1000ML LIQUID GT PRN (03:26)
[2017-11-22] MEDS: BACLOFEN 10 MG TABLET GT SCH ×3 (05:39→21:16)
[2017-11-22] MEDS: CHOLECALCIFEROL 1,000 UNIT TABLET GT SCH (05:39)
[2017-11-22] MEDS: BUDESONIDE 0.5 MG/2 ML NEBU NEB SCH ×2 (07:49→19:55)
[2017-11-22] MEDS: CALMOSEPTINE 113 GM OINTMENT TP SCH ×2 (09:00→21:15)
[2017-11-22] MEDS: DOCUSATE SODIUM 100 MG/10 ML LIQUID UDC GT SCH (09:00)
[2017-11-22] MEDS: HYDROGEN PEROXIDE 3% 118 ML BOTTLE TP SCH ×2 (09:00→21:16)
[2017-11-22] MEDS: NUTRISOURCE FIBER 4 GM PACKET GT SCH ×2 (09:00→21:14)
[2017-11-22] MEDS: CALCIUM CARBONATE 500 MG TABLET GT SCH ×2 (09:00→21:15)
[2017-11-22] MEDS: COD LIVER OIL/ZINC OXIDE OINT 113 GM TUBE TP SCH ×2 (09:00→21:16)
[2017-11-22 11:30] VITALS: BP 106/70
[2017-11-22 20:00] VITALS: BP 109/74
[2017-11-22] MEDS: ATORVASTATIN 10 MG TABLET GT SCH (21:14)
[2017-11-22] MEDS: MULTIVIT, IRON, MIN NO. 8, FA TABLET GT SCH (21:15)
[2017-11-23] MEDS: ALBUTEROL SULFATE 2.5 MG/3 ML NEBU NEB SCH ×6 (03:00→22:42)
[2017-11-23] MEDS: IPRATROPIUM BROMIDE 0.5 MG/2.5 ML NEBU NEB SCH ×6 (03:00→22:42)
[2017-11-23] MEDS: FIBERSOURCE HN 1000ML LIQUID GT PRN (03:14)
[2017-11-23] MEDS: BACLOFEN 10 MG TABLET GT SCH ×3 (05:27→22:08)
[2017-11-23] MEDS: CHOLECALCIFEROL 1,000 UNIT TABLET GT SCH (05:32)
[2017-11-23] MEDS: BUDESONIDE 0.5 MG/2 ML NEBU NEB SCH ×2 (07:16→20:00)
[2017-11-23 08:00] VITALS: BP 118/71
[2017-11-23] MEDS: NUTRISOURCE FIBER 4 GM PACKET GT SCH ×2 (08:30→20:50)
[2017-11-23] MEDS: CALMOSEPTINE 113 GM OINTMENT TP SCH ×2 (08:30→20:51)
[2017-11-23] MEDS: COD LIVER OIL/ZINC OXIDE OINT 113 GM TUBE TP SCH ×2 (08:30→20:51)
[2017-11-23] MEDS: CALCIUM CARBONATE 500 MG TABLET GT SCH ×2 (08:30→20:50)
[2017-11-23] MEDS: HYDROGEN PEROXIDE 3% 118 ML BOTTLE TP SCH ×2 (08:30→20:51)
[2017-11-23] MEDS: DOCUSATE SODIUM 100 MG/10 ML LIQUID UDC GT SCH (08:30)
[2017-11-23 20:34] VITALS: BP 121/79
[2017-11-23] MEDS: ATORVASTATIN 10 MG TABLET GT SCH (20:50)
[2017-11-24] MEDS: IPRATROPIUM BROMIDE 0.5 MG/2.5 ML NEBU NEB SCH ×6 (03:15→23:10)
[2017-11-24] MEDS: ALBUTEROL SULFATE 2.5 MG/3 ML NEBU NEB SCH ×6 (03:15→23:10)
[2017-11-24] MEDS: CHOLECALCIFEROL 1,000 UNIT TABLET GT SCH (05:53)
[2017-11-24] MEDS: BACLOFEN 10 MG TABLET GT SCH ×3 (05:53→21:56)
[2017-11-24] MEDS: BUDESONIDE 0.5 MG/2 ML NEBU NEB SCH ×2 (06:51→20:00)
[2017-11-24] MEDS: FIBERSOURCE HN 1000ML LIQUID GT PRN (07:05)
[2017-11-24] MEDS: COD LIVER OIL/ZINC OXIDE OINT 113 GM TUBE TP SCH ×2 (08:49→21:55)
[2017-11-24] MEDS: HYDROGEN PEROXIDE 3% 118 ML BOTTLE TP SCH ×2 (08:49→21:55)
[2017-11-24] MEDS: CALMOSEPTINE 113 GM OINTMENT TP SCH ×2 (08:49→21:54)
[2017-11-24] MEDS: CALCIUM CARBONATE 500 MG TABLET GT SCH ×2 (08:49→21:54)
[2017-11-24] MEDS: DOCUSATE SODIUM 100 MG/10 ML LIQUID UDC GT SCH (08:49)
[2017-11-24] MEDS: NUTRISOURCE FIBER 4 GM PACKET GT SCH ×2 (08:49→21:54)
[2017-11-24 11:30] VITALS: BP 129/78
[2017-11-24 20:09] VITALS: BP 136/89
[2017-11-24] MEDS: MULTIVIT, IRON, MIN NO. 8, FA TABLET GT SCH (21:54)
[2017-11-24] MEDS: ATORVASTATIN 10 MG TABLET GT SCH (21:54)
[2017-11-25] MEDS: ALBUTEROL SULFATE 2.5 MG/3 ML NEBU NEB SCH ×6 (03:20→22:45)
[2017-11-25] MEDS: IPRATROPIUM BROMIDE 0.5 MG/2.5 ML NEBU NEB SCH ×6 (03:20→22:45)
[2017-11-25] MEDS: BACLOFEN 10 MG TABLET GT SCH ×3 (05:14→21:52)
[2017-11-25] MEDS: CHOLECALCIFEROL 1,000 UNIT TABLET GT SCH (05:33)
[2017-11-25] MEDS: COD LIVER OIL/ZINC OXIDE OINT 113 GM TUBE TP SCH ×2 (08:05→21:51)
[2017-11-25] MEDS: NUTRISOURCE FIBER 4 GM PACKET GT SCH ×2 (08:05→21:51)
[2017-11-25] MEDS: CALCIUM CARBONATE 500 MG TABLET GT SCH ×2 (08:05→21:51)
[2017-11-25] MEDS: DOCUSATE SODIUM 100 MG/10 ML LIQUID UDC GT SCH (08:05)
[2017-11-25] MEDS: HYDROGEN PEROXIDE 3% 118 ML BOTTLE TP SCH ×2 (08:05→21:52)
[2017-11-25] MEDS: CALMOSEPTINE 113 GM OINTMENT TP SCH ×2 (08:05→21:51)
[2017-11-25 08:09] VITALS: BP 135/86
[2017-11-25] MEDS: BUDESONIDE 0.5 MG/2 ML NEBU NEB SCH ×2 (08:30→19:15)
[2017-11-25] MEDS: FIBERSOURCE HN 1000ML LIQUID GT PRN (13:54)
[2017-11-25 20:27] VITALS: BP 109/70
[2017-11-25] MEDS: ATORVASTATIN 10 MG TABLET GT SCH (21:51)
[2017-11-26] MEDS: IPRATROPIUM BROMIDE 0.5 MG/2.5 ML NEBU NEB SCH ×6 (02:31→22:44)
[2017-11-26] MEDS: ALBUTEROL SULFATE 2.5 MG/3 ML NEBU NEB SCH ×6 (02:31→22:44)
[2017-11-26] MEDS: CHOLECALCIFEROL 1,000 UNIT TABLET GT SCH (06:28)
[2017-11-26] MEDS: BACLOFEN 10 MG TABLET GT SCH ×3 (06:28→21:51)
[2017-11-26] MEDS: BUDESONIDE 0.5 MG/2 ML NEBU NEB SCH ×2 (07:54→19:54)
[2017-11-26 08:09] VITALS: BP 116/72
[2017-11-26] MEDS: HYDROGEN PEROXIDE 3% 118 ML BOTTLE TP SCH ×2 (08:24→21:51)
[2017-11-26] MEDS: NUTRISOURCE FIBER 4 GM PACKET GT SCH ×2 (08:24→21:51)
[2017-11-26] MEDS: CALMOSEPTINE 113 GM OINTMENT TP SCH ×2 (08:24→21:51)
[2017-11-26] MEDS: CALCIUM CARBONATE 500 MG TABLET GT SCH ×2 (08:24→21:51)
[2017-11-26] MEDS: COD LIVER OIL/ZINC OXIDE OINT 113 GM TUBE TP SCH ×2 (08:24→21:51)
[2017-11-26] MEDS: DOCUSATE SODIUM 100 MG/10 ML LIQUID UDC GT SCH (08:24)
[2017-11-26] MEDS: FIBERSOURCE HN 1000ML LIQUID GT PRN (14:11)
[2017-11-26 20:00] VITALS: BP 107/65
[2017-11-26] MEDS: MULTIVIT, IRON, MIN NO. 8, FA TABLET GT SCH (21:51)
[2017-11-26] MEDS: ATORVASTATIN 10 MG TABLET GT SCH (21:51)
[2017-11-27] MEDS: ALBUTEROL SULFATE 2.5 MG/3 ML NEBU NEB SCH ×6 (02:31→22:40)
[2017-11-27] MEDS: IPRATROPIUM BROMIDE 0.5 MG/2.5 ML NEBU NEB SCH ×6 (02:31→22:40)
[2017-11-27] MEDS: CHOLECALCIFEROL 1,000 UNIT TABLET GT SCH (06:58)
[2017-11-27] MEDS: BACLOFEN 10 MG TABLET GT SCH ×3 (06:58→22:03)
[2017-11-27] MEDS: BUDESONIDE 0.5 MG/2 ML NEBU NEB SCH ×2 (07:47→19:23)
[2017-11-27 08:02] VITALS: BP 109/67
[2017-11-27] MEDS: DOCUSATE SODIUM 100 MG/10 ML LIQUID UDC GT SCH (08:39)
[2017-11-27] MEDS: CALCIUM CARBONATE 500 MG TABLET GT SCH ×2 (08:40→21:30)
[2017-11-27] MEDS: COD LIVER OIL/ZINC OXIDE OINT 113 GM TUBE TP SCH ×2 (08:40→21:30)
[2017-11-27] MEDS: CALMOSEPTINE 113 GM OINTMENT TP SCH ×2 (08:40→21:30)
[2017-11-27] MEDS: NUTRISOURCE FIBER 4 GM PACKET GT SCH ×2 (08:40→21:30)
[2017-11-27] MEDS: HYDROGEN PEROXIDE 3% 118 ML BOTTLE TP SCH ×2 (08:40→21:31)
--- NOTE | 2017-11-27 14:26 | NUR ---
SEEN AND EXAMINED BY KAYLA LU,NO NEW ORDERS NOTED.
[2017-11-27] MEDS: FIBERSOURCE HN 1000ML LIQUID GT PRN (17:00)
[2017-11-27 20:00] VITALS: BP 102/70
--- NOTE | 2017-11-27 21:29 | NUR ---
HALINA GREY N.P. WAS IN, NO NEW ORDERS.
[2017-11-27] MEDS: ATORVASTATIN 10 MG TABLET GT SCH (21:30)
[2017-11-28] MEDS: IPRATROPIUM BROMIDE 0.5 MG/2.5 ML NEBU NEB SCH ×7 (02:44→22:40)
[2017-11-28] MEDS: ALBUTEROL SULFATE 2.5 MG/3 ML NEBU NEB SCH ×6 (02:44→22:40)
[2017-11-28] MEDS: CHOLECALCIFEROL 1,000 UNIT TABLET GT SCH (06:10)
[2017-11-28] MEDS: BACLOFEN 10 MG TABLET GT SCH ×3 (06:10→22:00)
[2017-11-28] MEDS: BUDESONIDE 0.5 MG/2 ML NEBU NEB SCH ×2 (07:34→19:17)
[2017-11-28 07:57] VITALS: BP 105/53
[2017-11-28] MEDS: HYDROGEN PEROXIDE 3% 118 ML BOTTLE TP SCH ×2 (08:13→21:16)
[2017-11-28] MEDS: DOCUSATE SODIUM 100 MG/10 ML LIQUID UDC GT SCH (08:13)
[2017-11-28] MEDS: COD LIVER OIL/ZINC OXIDE OINT 113 GM TUBE TP SCH (08:13)
[2017-11-28] MEDS: CALCIUM CARBONATE 500 MG TABLET GT SCH ×2 (08:13→21:16)
[2017-11-28] MEDS: NUTRISOURCE FIBER 4 GM PACKET GT SCH ×2 (08:13→21:16)
[2017-11-28] MEDS: CALMOSEPTINE 113 GM OINTMENT TP SCH ×2 (08:13→21:16)
[2017-11-28] MEDS: FIBERSOURCE HN 1000ML LIQUID GT PRN (17:36)
[2017-11-28] MEDS: ATORVASTATIN 10 MG TABLET GT SCH (21:16)
[2017-11-28] MEDS: MULTIVIT, IRON, MIN NO. 8, FA TABLET GT SCH (21:16)
[2017-11-28 23:23] VITALS: BP 101/67
[2017-11-29] MEDS: ALBUTEROL SULFATE 2.5 MG/3 ML NEBU NEB SCH ×6 (02:30→22:40)
[2017-11-29] MEDS: IPRATROPIUM BROMIDE 0.5 MG/2.5 ML NEBU NEB SCH ×6 (02:30→22:40)
[2017-11-29] MEDS: CHOLECALCIFEROL 1,000 UNIT TABLET GT SCH (05:30)
[2017-11-29] MEDS: BACLOFEN 10 MG TABLET GT SCH ×3 (05:30→21:42)
[2017-11-29] MEDS: BUDESONIDE 0.5 MG/2 ML NEBU NEB SCH ×2 (08:05→19:20)
[2017-11-29] MEDS: DOCUSATE SODIUM 100 MG/10 ML LIQUID UDC GT SCH (09:37)
[2017-11-29] MEDS: NUTRISOURCE FIBER 4 GM PACKET GT SCH ×2 (09:38→21:41)
[2017-11-29] MEDS: CALCIUM CARBONATE 500 MG TABLET GT SCH ×2 (09:38→21:41)
[2017-11-29] MEDS: HYDROGEN PEROXIDE 3% 118 ML BOTTLE TP SCH ×2 (09:38→21:41)
[2017-11-29] MEDS: CALMOSEPTINE 113 GM OINTMENT TP SCH ×2 (09:38→21:41)
[2017-11-29 14:55] VITALS: BP 95/54
[2017-11-29 20:00] VITALS: BP 110/63
[2017-11-29] MEDS: ATORVASTATIN 10 MG TABLET GT SCH (21:40)
[2017-11-30] MEDS: FIBERSOURCE HN 1000ML LIQUID GT PRN (01:31)
[2017-11-30] MEDS: IPRATROPIUM BROMIDE 0.5 MG/2.5 ML NEBU NEB SCH ×6 (03:54→22:47)
[2017-11-30] MEDS: ALBUTEROL SULFATE 2.5 MG/3 ML NEBU NEB SCH ×6 (03:54→22:47)
[2017-11-30] MEDS: BACLOFEN 10 MG TABLET GT SCH ×3 (05:19→21:09)
[2017-11-30] MEDS: CHOLECALCIFEROL 1,000 UNIT TABLET GT SCH (05:34)
[2017-11-30] MEDS: BUDESONIDE 0.5 MG/2 ML NEBU NEB SCH ×2 (07:28→20:11)
[2017-11-30] MEDS: DOCUSATE SODIUM 100 MG/10 ML LIQUID UDC GT SCH (09:47)
[2017-11-30] MEDS: NUTRISOURCE FIBER 4 GM PACKET GT SCH ×2 (09:47→20:48)
[2017-11-30] MEDS: HYDROGEN PEROXIDE 3% 118 ML BOTTLE TP SCH ×2 (09:48→20:48)
[2017-11-30] MEDS: CALMOSEPTINE 113 GM OINTMENT TP SCH ×2 (09:48→20:48)
[2017-11-30] MEDS: CALCIUM CARBONATE 500 MG TABLET GT SCH ×2 (09:48→20:48)
[2017-11-30 13:05] VITALS: BP 118/78
[2017-11-30] MEDS: MULTIVIT, IRON, MIN NO. 8, FA TABLET GT SCH (20:48)
[2017-11-30] MEDS: ATORVASTATIN 10 MG TABLET GT SCH (20:48)
[2017-11-30 22:43] VITALS: BP 119/67
[2017-12-01] MEDS: IPRATROPIUM BROMIDE 0.5 MG/2.5 ML NEBU NEB SCH ×6 (03:40→22:52)
[2017-12-01] MEDS: ALBUTEROL SULFATE 2.5 MG/3 ML NEBU NEB SCH ×6 (03:40→22:52)
[2017-12-01] MEDS: FIBERSOURCE HN 1000ML LIQUID GT PRN (05:28)
[2017-12-01] MEDS: BACLOFEN 10 MG TABLET GT SCH ×3 (05:28→21:00)
[2017-12-01] MEDS: CHOLECALCIFEROL 1,000 UNIT TABLET GT SCH (05:33)
[2017-12-01] MEDS: BUDESONIDE 0.5 MG/2 ML NEBU NEB SCH ×2 (07:17→19:45)
--- NOTE | 2017-12-01 09:45 | NUR ---
Noted with left buttock excoriation during morning care. initiated TX. will continue to monitor.
[2017-12-01] MEDS: NUTRISOURCE FIBER 4 GM PACKET GT SCH ×2 (09:51→21:00)
[2017-12-01] MEDS: CALCIUM CARBONATE 500 MG TABLET GT SCH ×2 (09:51→21:00)
[2017-12-01] MEDS: CALMOSEPTINE 113 GM OINTMENT TP SCH ×2 (09:51→21:00)
[2017-12-01] MEDS: DOCUSATE SODIUM 100 MG/10 ML LIQUID UDC GT SCH (09:51)
[2017-12-01] MEDS: HYDROGEN PEROXIDE 3% 118 ML BOTTLE TP SCH ×2 (09:52→21:00)
[2017-12-01 11:32] VITALS: BP 126/75
[2017-12-01] MEDS: ATORVASTATIN 10 MG TABLET GT SCH (21:00)
[2017-12-01] MEDS: COD LIVER OIL/ZINC OXIDE OINT 113 GM TUBE TP SCH (21:00)
[2017-12-01 23:05] VITALS: BP 111/67
[2017-12-02] MEDS: ALBUTEROL SULFATE 2.5 MG/3 ML NEBU NEB SCH ×6 (03:25→22:40)
[2017-12-02] MEDS: IPRATROPIUM BROMIDE 0.5 MG/2.5 ML NEBU NEB SCH ×6 (03:25→22:40)
[2017-12-02] MEDS: BACLOFEN 10 MG TABLET GT SCH ×3 (05:59→21:36)
[2017-12-02] MEDS: CHOLECALCIFEROL 1,000 UNIT TABLET GT SCH (05:59)
[2017-12-02] MEDS: FIBERSOURCE HN 1000ML LIQUID GT PRN (06:00)
[2017-12-02 08:00] VITALS: BP 120/69
[2017-12-02] MEDS: BUDESONIDE 0.5 MG/2 ML NEBU NEB SCH ×2 (08:10→19:51)
[2017-12-02] MEDS: DOCUSATE SODIUM 100 MG/10 ML LIQUID UDC GT SCH (09:00)
[2017-12-02] MEDS: CALMOSEPTINE 113 GM OINTMENT TP SCH ×2 (09:00→21:35)
[2017-12-02] MEDS: NUTRISOURCE FIBER 4 GM PACKET GT SCH ×2 (09:00→21:35)
[2017-12-02] MEDS: CALCIUM CARBONATE 500 MG TABLET GT SCH ×2 (09:00→21:35)
[2017-12-02] MEDS: HYDROGEN PEROXIDE 3% 118 ML BOTTLE TP SCH ×2 (09:00→21:36)
[2017-12-02] MEDS: COD LIVER OIL/ZINC OXIDE OINT 113 GM TUBE TP SCH ×2 (09:00→21:36)
[2017-12-02] MEDS: ATORVASTATIN 10 MG TABLET GT SCH (21:35)
[2017-12-02] MEDS: MULTIVIT, IRON, MIN NO. 8, FA TABLET GT SCH (21:35)
[2017-12-02 22:00] VITALS: BP 124/74
[2017-12-03] MEDS: ALBUTEROL SULFATE 2.5 MG/3 ML NEBU NEB SCH ×6 (03:30→22:40)
[2017-12-03] MEDS: IPRATROPIUM BROMIDE 0.5 MG/2.5 ML NEBU NEB SCH ×6 (03:30→22:40)
[2017-12-03] MEDS: FIBERSOURCE HN 1000ML LIQUID GT PRN (04:07)
[2017-12-03] MEDS: BACLOFEN 10 MG TABLET GT SCH ×3 (06:06→21:25)
[2017-12-03] MEDS: CHOLECALCIFEROL 1,000 UNIT TABLET GT SCH (06:06)
[2017-12-03] MEDS: BUDESONIDE 0.5 MG/2 ML NEBU NEB SCH ×2 (07:54→19:15)
[2017-12-03 08:05] VITALS: BP 115/77
[2017-12-03] MEDS: DOCUSATE SODIUM 100 MG/10 ML LIQUID UDC GT SCH (08:48)
[2017-12-03] MEDS: NUTRISOURCE FIBER 4 GM PACKET GT SCH ×2 (08:48→21:24)
[2017-12-03] MEDS: HYDROGEN PEROXIDE 3% 118 ML BOTTLE TP SCH ×2 (08:49→21:25)
[2017-12-03] MEDS: CALCIUM CARBONATE 500 MG TABLET GT SCH ×2 (08:49→21:24)
[2017-12-03] MEDS: CALMOSEPTINE 113 GM OINTMENT TP SCH ×2 (08:49→21:24)
[2017-12-03] MEDS: COD LIVER OIL/ZINC OXIDE OINT 113 GM TUBE TP SCH ×2 (08:49→21:25)
--- NOTE | 2017-12-03 14:04 | NUR ---
SEEN BY GARETH JETER.
[2017-12-03 20:33] VITALS: BP 121/79
[2017-12-03] MEDS: ATORVASTATIN 10 MG TABLET GT SCH (21:24)
[2017-12-04] MEDS: IPRATROPIUM BROMIDE 0.5 MG/2.5 ML NEBU NEB SCH ×6 (02:30→23:50)
[2017-12-04] MEDS: ALBUTEROL SULFATE 2.5 MG/3 ML NEBU NEB SCH ×6 (02:30→23:50)
[2017-12-04] MEDS: BACLOFEN 10 MG TABLET GT SCH ×3 (06:08→21:05)
[2017-12-04] MEDS: CHOLECALCIFEROL 1,000 UNIT TABLET GT SCH (06:08)
[2017-12-04] MEDS: FIBERSOURCE HN 1000ML LIQUID GT PRN (06:42)
[2017-12-04] MEDS: BUDESONIDE 0.5 MG/2 ML NEBU NEB SCH ×2 (07:31→21:43)
[2017-12-04 08:07] VITALS: BP 114/69
[2017-12-04] MEDS: CALMOSEPTINE 113 GM OINTMENT TP SCH ×2 (08:15→21:05)
[2017-12-04] MEDS: NUTRISOURCE FIBER 4 GM PACKET GT SCH ×2 (08:15→21:05)
[2017-12-04] MEDS: COD LIVER OIL/ZINC OXIDE OINT 113 GM TUBE TP SCH ×2 (08:15→21:05)
[2017-12-04] MEDS: CALCIUM CARBONATE 500 MG TABLET GT SCH ×2 (08:15→21:05)
[2017-12-04] MEDS: HYDROGEN PEROXIDE 3% 118 ML BOTTLE TP SCH ×2 (08:15→21:05)
[2017-12-04] MEDS: DOCUSATE SODIUM 100 MG/10 ML LIQUID UDC GT SCH (08:15)
--- NOTE | 2017-12-04 15:09 | NUR ---
Pharmacy Update from Today's 12/04/17 IDT Meeting: VS: Temp 98.4 BP 107/65 HR 73 LABS: (from 02/20/17, no new) Wbc 5.4H/H 13.5/40.8Plt 139 Na 141K 3.5Cl 104CO2 31BUN/SCr 12/0.7 BS 127 MEDICATION USE REVIEWED: > Pt not on any anti-psych or anti-seizure medications > PRN MED USAGE: (October) Tylenol for pain used x 0 Tylenol for temp used x 0 Bisacodyl PRN x0 NEW ORDERS NOTED: > Econazole cream 10/29-11/19 for fungal rash on buttocks (previously on clotrimazole 1% cream till 10/18) > Fluconazole 150mg daily 10/27-11/04 for fungal rash on buttocks > Docusate 100mg daily 11/16 (changed from q12hr) Pt was reviewed and discussed in depth, no medication concerns or issues reported at this time, will continue to follow
--- NOTE | 2017-12-04 16:43 | NUR ---
INTERDISCIPLINARY PLAN OF CARE CONFERENCE was held today. Patient's family was unable to attend the meeting due to living [id number]. Dr. Underwood and the Interdisciplinary Team reviewed the current plan of care in detail. RN provided updates on the patient's medical condition. See RN IDT conference notes. No major changes reported at this time. See also all other disciplines IDT notes and physician's progress notes for additional details.
[2017-12-04 20:34] VITALS: BP 134/82
[2017-12-04] MEDS: MULTIVIT, IRON, MIN NO. 8, FA TABLET GT SCH (21:05)
[2017-12-04] MEDS: ATORVASTATIN 10 MG TABLET GT SCH (21:05)
[2017-12-05] MEDS: IPRATROPIUM BROMIDE 0.5 MG/2.5 ML NEBU NEB SCH ×6 (04:06→23:15)
[2017-12-05] MEDS: ALBUTEROL SULFATE 2.5 MG/3 ML NEBU NEB SCH ×6 (04:06→23:15)
[2017-12-05] MEDS: CHOLECALCIFEROL 1,000 UNIT TABLET GT SCH (05:37)
[2017-12-05] MEDS: BACLOFEN 10 MG TABLET GT SCH ×3 (05:37→21:00)
--- NOTE | 2017-12-05 08:00 | NUR ---
PATIENT RECEIVED AFEBRILE, NO S/S OF RESP. DISTRESS, NO DISCOMFORT NOTED, SKIN ENG/DRY. ABD. SOFT/NON-DISTENDED, GT SITE CLEAN, DRY, NO LEAK, NO REDNESS NOTED. TRACH TUBE SECURED/PATENT AT MIDLINE VIA TRACH MASK.
[2017-12-05 08:07] VITALS: BP 90/50
[2017-12-05] MEDS: BUDESONIDE 0.5 MG/2 ML NEBU NEB SCH ×2 (08:10→19:24)
[2017-12-05] MEDS: COD LIVER OIL/ZINC OXIDE OINT 113 GM TUBE TP SCH ×2 (08:41→20:59)
[2017-12-05] MEDS: CALCIUM CARBONATE 500 MG TABLET GT SCH ×2 (08:41→20:59)
[2017-12-05] MEDS: NUTRISOURCE FIBER 4 GM PACKET GT SCH ×2 (08:41→20:58)
[2017-12-05] MEDS: CALMOSEPTINE 113 GM OINTMENT TP SCH ×2 (08:41→20:59)
[2017-12-05] MEDS: DOCUSATE SODIUM 100 MG/10 ML LIQUID UDC GT SCH (08:41)
[2017-12-05] MEDS: HYDROGEN PEROXIDE 3% 118 ML BOTTLE TP SCH ×2 (08:41→20:59)
[2017-12-05] MEDS: FIBERSOURCE HN 1000ML LIQUID GT PRN (08:42)
--- NOTE | 2017-12-05 09:56 | NUR ---
SEEN AND EXAMINED BY HALINA JESUS,NO NEW ORDERS.
[2017-12-05 20:00] VITALS: BP 102/63
[2017-12-05] MEDS: ATORVASTATIN 10 MG TABLET GT SCH (20:58)
[2017-12-06] MEDS: IPRATROPIUM BROMIDE 0.5 MG/2.5 ML NEBU NEB SCH ×6 (03:08→22:43)
[2017-12-06] MEDS: ALBUTEROL SULFATE 2.5 MG/3 ML NEBU NEB SCH ×6 (03:08→22:43)
[2017-12-06] MEDS: BACLOFEN 10 MG TABLET GT SCH ×3 (05:15→22:27)
[2017-12-06] MEDS: CHOLECALCIFEROL 1,000 UNIT TABLET GT SCH (05:52)
[2017-12-06] MEDS: BUDESONIDE 0.5 MG/2 ML NEBU NEB SCH ×2 (07:52→19:17)
[2017-12-06 08:06] VITALS: BP 109/60
[2017-12-06] MEDS: CALCIUM CARBONATE 500 MG TABLET GT SCH ×2 (08:46→20:43)
[2017-12-06] MEDS: NUTRISOURCE FIBER 4 GM PACKET GT SCH ×2 (08:46→20:42)
[2017-12-06] MEDS: DOCUSATE SODIUM 100 MG/10 ML LIQUID UDC GT SCH (08:46)
[2017-12-06] MEDS: HYDROGEN PEROXIDE 3% 118 ML BOTTLE TP SCH ×2 (08:46→20:43)
[2017-12-06] MEDS: COD LIVER OIL/ZINC OXIDE OINT 113 GM TUBE TP SCH ×2 (08:46→20:43)
[2017-12-06] MEDS: CALMOSEPTINE 113 GM OINTMENT TP SCH ×2 (08:46→20:43)
[2017-12-06] MEDS: FIBERSOURCE HN 1000ML LIQUID GT PRN (08:46)
[2017-12-06 20:27] VITALS: BP 124/70
[2017-12-06] MEDS: ATORVASTATIN 10 MG TABLET GT SCH (20:42)
[2017-12-06] MEDS: MULTIVIT, IRON, MIN NO. 8, FA TABLET GT SCH (20:43)
[2017-12-07] MEDS: IPRATROPIUM BROMIDE 0.5 MG/2.5 ML NEBU NEB SCH ×6 (02:45→22:54)
[2017-12-07] MEDS: ALBUTEROL SULFATE 2.5 MG/3 ML NEBU NEB SCH ×6 (02:45→22:54)
[2017-12-07] MEDS: CHOLECALCIFEROL 1,000 UNIT TABLET GT SCH (05:56)
[2017-12-07] MEDS: BACLOFEN 10 MG TABLET GT SCH ×3 (05:56→22:05)
--- NOTE | 2017-12-07 08:00 | NUR ---
PATIENT RECEIVED AFEBRILE, NO S/S OF RESP. DISTRESS, NO DISCOMFORT NOTED, SKIN ENG/DRY AND INTACT, ABD. SOFT/NON-DISTENDED, GT SITE CLEAN, DRY, NO LEAK, NO REDNESS NOTED. TRACH TUBE SECURED/PATENT AT MIDLINE VIA TRACH MASK. S/R UP X4, CALL LIGHT WITH IN REACH.
[2017-12-07 08:05] VITALS: BP 98/60
[2017-12-07] MEDS: BUDESONIDE 0.5 MG/2 ML NEBU NEB SCH ×2 (08:10→19:18)
[2017-12-07] MEDS: FIBERSOURCE HN 1000ML LIQUID GT PRN (08:52)
[2017-12-07] MEDS: HYDROGEN PEROXIDE 3% 118 ML BOTTLE TP SCH ×2 (08:52→21:00)
[2017-12-07] MEDS: CALCIUM CARBONATE 500 MG TABLET GT SCH ×2 (08:52→21:00)
[2017-12-07] MEDS: COD LIVER OIL/ZINC OXIDE OINT 113 GM TUBE TP SCH ×2 (08:52→21:00)
[2017-12-07] MEDS: CALMOSEPTINE 113 GM OINTMENT TP SCH ×2 (08:52→21:00)
[2017-12-07] MEDS: DOCUSATE SODIUM 100 MG/10 ML LIQUID UDC GT SCH (08:52)
[2017-12-07] MEDS: NUTRISOURCE FIBER 4 GM PACKET GT SCH ×2 (08:52→21:00)
[2017-12-07 20:16] VITALS: BP 106/71
[2017-12-07] MEDS: ATORVASTATIN 10 MG TABLET GT SCH (21:00)
[2017-12-08] MEDS: IPRATROPIUM BROMIDE 0.5 MG/2.5 ML NEBU NEB SCH ×6 (02:40→22:40)
[2017-12-08] MEDS: ALBUTEROL SULFATE 2.5 MG/3 ML NEBU NEB SCH ×6 (02:40→22:40)
[2017-12-08] MEDS: BACLOFEN 10 MG TABLET GT SCH ×3 (06:43→22:33)
[2017-12-08] MEDS: CHOLECALCIFEROL 1,000 UNIT TABLET GT SCH (06:43)
[2017-12-08] MEDS: BUDESONIDE 0.5 MG/2 ML NEBU NEB SCH ×2 (07:51→19:16)
[2017-12-08 08:00] VITALS: BP 154/90
[2017-12-08] MEDS: CALCIUM CARBONATE 500 MG TABLET GT SCH ×2 (08:54→21:00)
[2017-12-08] MEDS: CALMOSEPTINE 113 GM OINTMENT TP SCH ×2 (08:54→21:00)
[2017-12-08] MEDS: NUTRISOURCE FIBER 4 GM PACKET GT SCH ×2 (08:54→21:00)
[2017-12-08] MEDS: DOCUSATE SODIUM 100 MG/10 ML LIQUID UDC GT SCH (08:54)
[2017-12-08] MEDS: COD LIVER OIL/ZINC OXIDE OINT 113 GM TUBE TP SCH ×2 (08:54→21:00)
[2017-12-08] MEDS: HYDROGEN PEROXIDE 3% 118 ML BOTTLE TP SCH ×2 (08:54→21:00)
[2017-12-08] MEDS: FIBERSOURCE HN 1000ML LIQUID GT PRN (14:42)
[2017-12-08 20:00] VITALS: BP 109/72
[2017-12-08] MEDS: BISACODYL 10 MG SUPP.RECT RC PRN (20:00)
[2017-12-08] MEDS: MULTIVIT, IRON, MIN NO. 8, FA TABLET GT SCH (21:00)
[2017-12-08] MEDS: ATORVASTATIN 10 MG TABLET GT SCH (21:00)
[2017-12-09] MEDS: ALBUTEROL SULFATE 2.5 MG/3 ML NEBU NEB SCH ×6 (02:40→22:40)
[2017-12-09] MEDS: IPRATROPIUM BROMIDE 0.5 MG/2.5 ML NEBU NEB SCH ×6 (02:40→22:40)
[2017-12-09] MEDS: BACLOFEN 10 MG TABLET GT SCH ×3 (06:19→21:26)
[2017-12-09] MEDS: CHOLECALCIFEROL 1,000 UNIT TABLET GT SCH (06:19)
[2017-12-09] MEDS: BUDESONIDE 0.5 MG/2 ML NEBU NEB SCH ×2 (07:43→19:43)
[2017-12-09 08:06] VITALS: BP 99/62
[2017-12-09] MEDS: CALMOSEPTINE 113 GM OINTMENT TP SCH ×2 (09:12→21:26)
[2017-12-09] MEDS: HYDROGEN PEROXIDE 3% 118 ML BOTTLE TP SCH ×2 (09:12→21:26)
[2017-12-09] MEDS: CALCIUM CARBONATE 500 MG TABLET GT SCH ×2 (09:12→21:26)
[2017-12-09] MEDS: COD LIVER OIL/ZINC OXIDE OINT 113 GM TUBE TP SCH ×2 (09:12→21:26)
[2017-12-09] MEDS: NUTRISOURCE FIBER 4 GM PACKET GT SCH ×2 (09:12→21:26)
[2017-12-09] MEDS: DOCUSATE SODIUM 100 MG/10 ML LIQUID UDC GT SCH (09:12)
[2017-12-09 20:58] VITALS: BP 101/64
[2017-12-09] MEDS: ATORVASTATIN 10 MG TABLET GT SCH (21:26)
[2017-12-10] MEDS: ALBUTEROL SULFATE 2.5 MG/3 ML NEBU NEB SCH ×6 (03:38→22:41)
[2017-12-10] MEDS: IPRATROPIUM BROMIDE 0.5 MG/2.5 ML NEBU NEB SCH ×6 (03:38→22:41)
[2017-12-10] MEDS: CHOLECALCIFEROL 1,000 UNIT TABLET GT SCH (06:27)
[2017-12-10] MEDS: BACLOFEN 10 MG TABLET GT SCH ×3 (06:27→22:13)
--- NOTE | 2017-12-10 07:03 | NUR ---
SEEN BY FRANCIA Mart WITH NNO.
[2017-12-10] MEDS: BUDESONIDE 0.5 MG/2 ML NEBU NEB SCH ×2 (07:19→19:25)
[2017-12-10 08:00] VITALS: BP 115/77
[2017-12-10] MEDS: CALCIUM CARBONATE 500 MG TABLET GT SCH ×2 (08:11→21:13)
[2017-12-10] MEDS: DOCUSATE SODIUM 100 MG/10 ML LIQUID UDC GT SCH (08:11)
[2017-12-10] MEDS: CALMOSEPTINE 113 GM OINTMENT TP SCH ×2 (08:11→21:13)
[2017-12-10] MEDS: NUTRISOURCE FIBER 4 GM PACKET GT SCH ×2 (08:11→21:12)
[2017-12-10] MEDS: HYDROGEN PEROXIDE 3% 118 ML BOTTLE TP SCH ×2 (08:12→21:13)
[2017-12-10] MEDS: COD LIVER OIL/ZINC OXIDE OINT 113 GM TUBE TP SCH ×2 (08:12→21:13)
[2017-12-10] MEDS: FIBERSOURCE HN 1000ML LIQUID GT PRN (14:47)
[2017-12-10] MEDS: ATORVASTATIN 10 MG TABLET GT SCH (21:12)
[2017-12-10] MEDS: MULTIVIT, IRON, MIN NO. 8, FA TABLET GT SCH (21:13)
[2017-12-10 21:40] VITALS: BP 110/69
[2017-12-11] MEDS: IPRATROPIUM BROMIDE 0.5 MG/2.5 ML NEBU NEB SCH ×6 (02:53→22:40)
[2017-12-11] MEDS: ALBUTEROL SULFATE 2.5 MG/3 ML NEBU NEB SCH ×6 (02:53→22:40)
[2017-12-11] MEDS: CHOLECALCIFEROL 1,000 UNIT TABLET GT SCH (05:51)
[2017-12-11] MEDS: BACLOFEN 10 MG TABLET GT SCH ×3 (05:51→21:02)
[2017-12-11] MEDS: BUDESONIDE 0.5 MG/2 ML NEBU NEB SCH ×2 (07:42→19:52)
[2017-12-11 08:00] VITALS: BP 101/59
[2017-12-11] MEDS: DOCUSATE SODIUM 100 MG/10 ML LIQUID UDC GT SCH (09:21)
[2017-12-11] MEDS: NUTRISOURCE FIBER 4 GM PACKET GT SCH ×2 (09:22→20:53)
[2017-12-11] MEDS: CALCIUM CARBONATE 500 MG TABLET GT SCH ×2 (09:22→20:53)
[2017-12-11] MEDS: CALMOSEPTINE 113 GM OINTMENT TP SCH ×2 (09:23→20:53)
[2017-12-11] MEDS: HYDROGEN PEROXIDE 3% 118 ML BOTTLE TP SCH ×2 (09:23→20:53)
[2017-12-11] MEDS: COD LIVER OIL/ZINC OXIDE OINT 113 GM TUBE TP SCH ×2 (09:23→20:53)
[2017-12-11] MEDS: FIBERSOURCE HN 1000ML LIQUID GT PRN (17:17)
[2017-12-11] MEDS: ATORVASTATIN 10 MG TABLET GT SCH (20:53)
[2017-12-11 20:56] VITALS: BP 104/78
[2017-12-12] MEDS: ALBUTEROL SULFATE 2.5 MG/3 ML NEBU NEB SCH ×6 (02:33→23:07)
[2017-12-12] MEDS: IPRATROPIUM BROMIDE 0.5 MG/2.5 ML NEBU NEB SCH ×6 (02:33→23:07)
[2017-12-12] MEDS: BACLOFEN 10 MG TABLET GT SCH ×3 (05:07→21:19)
[2017-12-12] MEDS: CHOLECALCIFEROL 1,000 UNIT TABLET GT SCH (05:54)
[2017-12-12] MEDS: BUDESONIDE 0.5 MG/2 ML NEBU NEB SCH ×2 (07:53→20:30)
[2017-12-12 08:00] VITALS: BP 129/82
[2017-12-12] MEDS: NUTRISOURCE FIBER 4 GM PACKET GT SCH ×2 (09:03→21:18)
[2017-12-12] MEDS: CALCIUM CARBONATE 500 MG TABLET GT SCH ×2 (09:03→21:18)
[2017-12-12] MEDS: DOCUSATE SODIUM 100 MG/10 ML LIQUID UDC GT SCH (09:03)
[2017-12-12] MEDS: COD LIVER OIL/ZINC OXIDE OINT 113 GM TUBE TP SCH ×2 (09:04→21:19)
[2017-12-12] MEDS: HYDROGEN PEROXIDE 3% 118 ML BOTTLE TP SCH ×2 (09:04→21:19)
[2017-12-12] MEDS: CALMOSEPTINE 113 GM OINTMENT TP SCH ×2 (09:04→21:19)
[2017-12-12] MEDS: FIBERSOURCE HN 1000ML LIQUID GT PRN (17:50)
[2017-12-12 20:00] VITALS: BP 105/64
[2017-12-12] MEDS: ATORVASTATIN 10 MG TABLET GT SCH (21:17)
[2017-12-12] MEDS: MULTIVIT, IRON, MIN NO. 8, FA TABLET GT SCH (21:18)
[2017-12-13] MEDS: ALBUTEROL SULFATE 2.5 MG/3 ML NEBU NEB SCH ×6 (03:43→22:57)
[2017-12-13] MEDS: IPRATROPIUM BROMIDE 0.5 MG/2.5 ML NEBU NEB SCH ×6 (03:43→22:57)
[2017-12-13] MEDS: BACLOFEN 10 MG TABLET GT SCH ×3 (05:25→21:44)
[2017-12-13] MEDS: CHOLECALCIFEROL 1,000 UNIT TABLET GT SCH (05:35)
[2017-12-13] MEDS: BUDESONIDE 0.5 MG/2 ML NEBU NEB SCH ×2 (07:36→18:50)
[2017-12-13 08:00] VITALS: BP 118/76
[2017-12-13] MEDS: COD LIVER OIL/ZINC OXIDE OINT 113 GM TUBE TP SCH ×2 (08:51→21:44)
[2017-12-13] MEDS: CALMOSEPTINE 113 GM OINTMENT TP SCH ×2 (08:51→21:44)
[2017-12-13] MEDS: NUTRISOURCE FIBER 4 GM PACKET GT SCH ×2 (08:51→21:43)
[2017-12-13] MEDS: HYDROGEN PEROXIDE 3% 118 ML BOTTLE TP SCH ×2 (08:51→21:44)
[2017-12-13] MEDS: DOCUSATE SODIUM 100 MG/10 ML LIQUID UDC GT SCH (08:51)
[2017-12-13] MEDS: CALCIUM CARBONATE 500 MG TABLET GT SCH ×2 (08:51→21:43)
--- NOTE | 2017-12-13 19:10 | NUR ---
SEEN BY DR. ALBERTO JETER.
[2017-12-13 20:00] VITALS: BP 115/74
[2017-12-13] MEDS: ATORVASTATIN 10 MG TABLET GT SCH (21:43)
[2017-12-13] MEDS: BISACODYL 10 MG SUPP.RECT RC PRN (21:57)
[2017-12-14] MEDS: ALBUTEROL SULFATE 2.5 MG/3 ML NEBU NEB SCH ×6 (03:31→22:40)
[2017-12-14] MEDS: IPRATROPIUM BROMIDE 0.5 MG/2.5 ML NEBU NEB SCH ×6 (03:31→22:40)
[2017-12-14] MEDS: BACLOFEN 10 MG TABLET GT SCH ×3 (05:29→21:17)
[2017-12-14] MEDS: CHOLECALCIFEROL 1,000 UNIT TABLET GT SCH (05:30)
--- NOTE | 2017-12-14 06:53 | NUR ---
Seen and examined by Dorothy Mancera NP with no new orders.
[2017-12-14] MEDS: BUDESONIDE 0.5 MG/2 ML NEBU NEB SCH ×2 (07:39→20:00)
[2017-12-14 08:00] VITALS: BP 99/66
[2017-12-14] MEDS: HYDROGEN PEROXIDE 3% 118 ML BOTTLE TP SCH ×2 (08:30→21:17)
[2017-12-14] MEDS: NUTRISOURCE FIBER 4 GM PACKET GT SCH ×2 (08:30→21:16)
[2017-12-14] MEDS: DOCUSATE SODIUM 100 MG/10 ML LIQUID UDC GT SCH (08:30)
[2017-12-14] MEDS: CALCIUM CARBONATE 500 MG TABLET GT SCH ×2 (08:30→21:16)
[2017-12-14] MEDS: CALMOSEPTINE 113 GM OINTMENT TP SCH ×2 (08:30→21:16)
[2017-12-14] MEDS: COD LIVER OIL/ZINC OXIDE OINT 113 GM TUBE TP SCH ×2 (08:30→21:16)
[2017-12-14] MEDS: FIBERSOURCE HN 1000ML LIQUID GT PRN (20:04)
[2017-12-14] MEDS: MULTIVIT, IRON, MIN NO. 8, FA TABLET GT SCH (21:16)
[2017-12-14] MEDS: ATORVASTATIN 10 MG TABLET GT SCH (21:16)
[2017-12-14 22:00] VITALS: BP_SYST 105; BP_DIAS 59; BP_DIAS 73
[2017-12-15] MEDS: IPRATROPIUM BROMIDE 0.5 MG/2.5 ML NEBU NEB SCH ×6 (02:30→22:40)
[2017-12-15] MEDS: ALBUTEROL SULFATE 2.5 MG/3 ML NEBU NEB SCH ×6 (02:30→22:40)
[2017-12-15] MEDS: BACLOFEN 10 MG TABLET GT SCH ×3 (05:31→22:00)
[2017-12-15] MEDS: CHOLECALCIFEROL 1,000 UNIT TABLET GT SCH (05:31)
[2017-12-15 08:02] VITALS: BP 111/75
[2017-12-15] MEDS: BUDESONIDE 0.5 MG/2 ML NEBU NEB SCH ×2 (08:08→19:32)
[2017-12-15] MEDS: COD LIVER OIL/ZINC OXIDE OINT 113 GM TUBE TP SCH (09:00)
[2017-12-15] MEDS: CALCIUM CARBONATE 500 MG TABLET GT SCH ×2 (09:00→21:00)
[2017-12-15] MEDS: DOCUSATE SODIUM 100 MG/10 ML LIQUID UDC GT SCH (09:00)
[2017-12-15] MEDS: NUTRISOURCE FIBER 4 GM PACKET GT SCH ×2 (09:00→21:00)
[2017-12-15] MEDS: CALMOSEPTINE 113 GM OINTMENT TP SCH ×2 (09:00→21:00)
[2017-12-15] MEDS: HYDROGEN PEROXIDE 3% 118 ML BOTTLE TP SCH ×2 (09:00→21:00)
[2017-12-15] MEDS: ATORVASTATIN 10 MG TABLET GT SCH (21:00)
[2017-12-15 22:00] VITALS: BP 121/77
[2017-12-16] MEDS: IPRATROPIUM BROMIDE 0.5 MG/2.5 ML NEBU NEB SCH ×6 (02:58→22:38)
[2017-12-16] MEDS: ALBUTEROL SULFATE 2.5 MG/3 ML NEBU NEB SCH ×6 (02:58→22:38)
[2017-12-16] MEDS: BACLOFEN 10 MG TABLET GT SCH ×3 (05:35→21:38)
[2017-12-16] MEDS: CHOLECALCIFEROL 1,000 UNIT TABLET GT SCH (05:35)
[2017-12-16 08:00] VITALS: BP 154/89
[2017-12-16] MEDS: BUDESONIDE 0.5 MG/2 ML NEBU NEB SCH ×2 (08:10→19:41)
[2017-12-16] MEDS: DOCUSATE SODIUM 100 MG/10 ML LIQUID UDC GT SCH (08:21)
[2017-12-16] MEDS: HYDROGEN PEROXIDE 3% 118 ML BOTTLE TP SCH ×2 (08:21→21:38)
[2017-12-16] MEDS: CALMOSEPTINE 113 GM OINTMENT TP SCH ×2 (08:21→21:37)
[2017-12-16] MEDS: CALCIUM CARBONATE 500 MG TABLET GT SCH ×2 (08:21→21:37)
[2017-12-16] MEDS: NUTRISOURCE FIBER 4 GM PACKET GT SCH ×2 (08:21→21:37)
--- NOTE | 2017-12-16 11:22 | NUR ---
SEEN BY DANICA JETER.
--- NOTE | 2017-12-16 11:23 | NUR ---
WRONG ENTRY: DANICA GoodeDID NOT SEE PT.
[2017-12-16] MEDS: ATORVASTATIN 10 MG TABLET GT SCH (21:37)
[2017-12-16] MEDS: MULTIVIT, IRON, MIN NO. 8, FA TABLET GT SCH (21:37)
[2017-12-16 23:00] VITALS: BP 108/69
[2017-12-17] MEDS: IPRATROPIUM BROMIDE 0.5 MG/2.5 ML NEBU NEB SCH ×6 (02:30→22:40)
[2017-12-17] MEDS: ALBUTEROL SULFATE 2.5 MG/3 ML NEBU NEB SCH ×6 (02:30→22:40)
[2017-12-17] MEDS: FIBERSOURCE HN 1000ML LIQUID GT PRN (03:40)
[2017-12-17] MEDS: CHOLECALCIFEROL 1,000 UNIT TABLET GT SCH (05:51)
[2017-12-17] MEDS: BACLOFEN 10 MG TABLET GT SCH ×3 (05:51→21:36)
[2017-12-17] MEDS: BUDESONIDE 0.5 MG/2 ML NEBU NEB SCH ×2 (07:25→19:20)
[2017-12-17 08:00] VITALS: BP 115/70
[2017-12-17] MEDS: NUTRISOURCE FIBER 4 GM PACKET GT SCH ×2 (08:35→21:36)
[2017-12-17] MEDS: HYDROGEN PEROXIDE 3% 118 ML BOTTLE TP SCH ×2 (08:35→21:36)
[2017-12-17] MEDS: DOCUSATE SODIUM 100 MG/10 ML LIQUID UDC GT SCH (08:35)
[2017-12-17] MEDS: CALCIUM CARBONATE 500 MG TABLET GT SCH ×2 (08:35→21:36)
[2017-12-17] MEDS: CALMOSEPTINE 113 GM OINTMENT TP SCH ×2 (08:35→21:36)
[2017-12-17 20:19] VITALS: BP 127/84
[2017-12-17] MEDS: ATORVASTATIN 10 MG TABLET GT SCH (21:36)
[2017-12-18] MEDS: IPRATROPIUM BROMIDE 0.5 MG/2.5 ML NEBU NEB SCH ×6 (02:30→22:38)
[2017-12-18] MEDS: ALBUTEROL SULFATE 2.5 MG/3 ML NEBU NEB SCH ×6 (02:30→22:38)
[2017-12-18] MEDS: CHOLECALCIFEROL 1,000 UNIT TABLET GT SCH (05:32)
[2017-12-18] MEDS: BACLOFEN 10 MG TABLET GT SCH ×3 (05:32→21:41)
[2017-12-18] MEDS: BUDESONIDE 0.5 MG/2 ML NEBU NEB SCH ×2 (07:30→19:56)
[2017-12-18 08:00] VITALS: BP 115/66
[2017-12-18] MEDS: NUTRISOURCE FIBER 4 GM PACKET GT SCH ×2 (09:48→21:40)
[2017-12-18] MEDS: CALMOSEPTINE 113 GM OINTMENT TP SCH ×2 (09:48→21:41)
[2017-12-18] MEDS: HYDROGEN PEROXIDE 3% 118 ML BOTTLE TP SCH ×2 (09:48→21:41)
[2017-12-18] MEDS: DOCUSATE SODIUM 100 MG/10 ML LIQUID UDC GT SCH (09:48)
[2017-12-18] MEDS: CALCIUM CARBONATE 500 MG TABLET GT SCH ×2 (09:48→21:40)
[2017-12-18] MEDS: JEVITY 1.2 1000 ML LIQUID GT PRN (17:19)
[2017-12-18 20:00] VITALS: BP 107/74
[2017-12-18] MEDS: ATORVASTATIN 10 MG TABLET GT SCH (21:40)
[2017-12-18] MEDS: MULTIVIT, IRON, MIN NO. 8, FA TABLET GT SCH (21:41)
[2017-12-19] MEDS: IPRATROPIUM BROMIDE 0.5 MG/2.5 ML NEBU NEB SCH ×6 (02:30→22:38)
[2017-12-19] MEDS: ALBUTEROL SULFATE 2.5 MG/3 ML NEBU NEB SCH ×6 (02:30→22:38)
[2017-12-19] MEDS: BACLOFEN 10 MG TABLET GT SCH ×3 (06:04→22:40)
[2017-12-19] MEDS: CHOLECALCIFEROL 1,000 UNIT TABLET GT SCH (06:08)
[2017-12-19] MEDS: BUDESONIDE 0.5 MG/2 ML NEBU NEB SCH ×2 (07:35→19:59)
[2017-12-19 08:00] VITALS: BP 122/60
[2017-12-19] MEDS: DOCUSATE SODIUM 100 MG/10 ML LIQUID UDC GT SCH (09:56)
[2017-12-19] MEDS: NUTRISOURCE FIBER 4 GM PACKET GT SCH ×2 (09:56→20:28)
[2017-12-19] MEDS: HYDROGEN PEROXIDE 3% 118 ML BOTTLE TP SCH ×2 (09:57→20:29)
[2017-12-19] MEDS: CALCIUM CARBONATE 500 MG TABLET GT SCH ×2 (09:57→20:28)
[2017-12-19] MEDS: CALMOSEPTINE 113 GM OINTMENT TP SCH ×2 (09:57→20:29)
[2017-12-19 20:00] VITALS: BP 131/82
[2017-12-19] MEDS: ATORVASTATIN 10 MG TABLET GT SCH (20:28)
[2017-12-20] MEDS: ALBUTEROL SULFATE 2.5 MG/3 ML NEBU NEB SCH ×6 (02:30→22:40)
[2017-12-20] MEDS: IPRATROPIUM BROMIDE 0.5 MG/2.5 ML NEBU NEB SCH ×6 (02:30→22:40)
[2017-12-20] MEDS: BACLOFEN 10 MG TABLET GT SCH ×3 (05:19→21:00)
[2017-12-20] MEDS: CHOLECALCIFEROL 1,000 UNIT TABLET GT SCH (05:32)
[2017-12-20 08:00] VITALS: BP 108/74
[2017-12-20] MEDS: BUDESONIDE 0.5 MG/2 ML NEBU NEB SCH ×2 (08:10→19:26)
[2017-12-20] MEDS: DOCUSATE SODIUM 100 MG/10 ML LIQUID UDC GT SCH (08:37)
[2017-12-20] MEDS: CALCIUM CARBONATE 500 MG TABLET GT SCH ×2 (08:37→20:59)
[2017-12-20] MEDS: CALMOSEPTINE 113 GM OINTMENT TP SCH ×2 (08:37→20:59)
[2017-12-20] MEDS: HYDROGEN PEROXIDE 3% 118 ML BOTTLE TP SCH ×2 (08:37→20:59)
[2017-12-20] MEDS: NUTRISOURCE FIBER 4 GM PACKET GT SCH ×2 (08:37→20:59)
[2017-12-20] MEDS: JEVITY 1.2 1000 ML LIQUID GT PRN (13:58)
--- NOTE | 2017-12-20 17:00 | NUR ---
SEEN BY DR. ALBERTO JETER.
[2017-12-20 20:49] VITALS: BP 101/41
[2017-12-20] MEDS: ATORVASTATIN 10 MG TABLET GT SCH (20:59)
[2017-12-20] MEDS: MULTIVIT, IRON, MIN NO. 8, FA TABLET GT SCH (20:59)
[2017-12-21] MEDS: IPRATROPIUM BROMIDE 0.5 MG/2.5 ML NEBU NEB SCH ×6 (02:30→22:43)
[2017-12-21] MEDS: ALBUTEROL SULFATE 2.5 MG/3 ML NEBU NEB SCH ×6 (02:30→22:43)
[2017-12-21] MEDS: CHOLECALCIFEROL 1,000 UNIT TABLET GT SCH (06:01)
[2017-12-21] MEDS: BACLOFEN 10 MG TABLET GT SCH ×3 (06:01→21:15)
[2017-12-21] MEDS: BUDESONIDE 0.5 MG/2 ML NEBU NEB SCH ×2 (07:15→19:50)
[2017-12-21] MEDS: HYDROGEN PEROXIDE 3% 118 ML BOTTLE TP SCH ×2 (08:02→21:15)
[2017-12-21] MEDS: CALMOSEPTINE 113 GM OINTMENT TP SCH ×2 (08:02→21:15)
[2017-12-21] MEDS: CALCIUM CARBONATE 500 MG TABLET GT SCH ×2 (08:02→21:15)
[2017-12-21] MEDS: DOCUSATE SODIUM 100 MG/10 ML LIQUID UDC GT SCH (08:02)
[2017-12-21] MEDS: NUTRISOURCE FIBER 4 GM PACKET GT SCH ×2 (08:02→21:15)
[2017-12-21 08:05] VITALS: BP 107/71
[2017-12-21 20:38] VITALS: BP 110/71
[2017-12-21] MEDS: ATORVASTATIN 10 MG TABLET GT SCH (21:15)
[2017-12-22] MEDS: ALBUTEROL SULFATE 2.5 MG/3 ML NEBU NEB SCH ×6 (02:58→22:40)
[2017-12-22] MEDS: IPRATROPIUM BROMIDE 0.5 MG/2.5 ML NEBU NEB SCH ×6 (02:58→22:40)
[2017-12-22] MEDS: CHOLECALCIFEROL 1,000 UNIT TABLET GT SCH (06:09)
[2017-12-22] MEDS: BACLOFEN 10 MG TABLET GT SCH ×3 (06:09→21:13)
[2017-12-22] MEDS: BUDESONIDE 0.5 MG/2 ML NEBU NEB SCH ×2 (08:10→19:19)
[2017-12-22] MEDS: CALCIUM CARBONATE 500 MG TABLET GT SCH ×2 (08:35→21:12)
[2017-12-22] MEDS: CALMOSEPTINE 113 GM OINTMENT TP SCH ×2 (08:35→21:13)
[2017-12-22] MEDS: NUTRISOURCE FIBER 4 GM PACKET GT SCH ×2 (08:35→21:12)
[2017-12-22] MEDS: DOCUSATE SODIUM 100 MG/10 ML LIQUID UDC GT SCH (08:35)
[2017-12-22] MEDS: HYDROGEN PEROXIDE 3% 118 ML BOTTLE TP SCH ×2 (08:36→21:13)
[2017-12-22 14:59] VITALS: BP 121/84
[2017-12-22] MEDS: JEVITY 1.2 1000 ML LIQUID GT PRN (15:08)
[2017-12-22 20:48] VITALS: BP 99/70
[2017-12-22] MEDS: ATORVASTATIN 10 MG TABLET GT SCH (21:12)
[2017-12-22] MEDS: MULTIVIT, IRON, MIN NO. 8, FA TABLET GT SCH (21:13)
[2017-12-23] MEDS: IPRATROPIUM BROMIDE 0.5 MG/2.5 ML NEBU NEB SCH ×6 (02:30→22:40)
[2017-12-23] MEDS: ALBUTEROL SULFATE 2.5 MG/3 ML NEBU NEB SCH ×6 (02:30→22:40)
[2017-12-23] MEDS: BACLOFEN 10 MG TABLET GT SCH ×3 (05:40→21:48)
[2017-12-23] MEDS: CHOLECALCIFEROL 1,000 UNIT TABLET GT SCH (05:40)
[2017-12-23] MEDS: BUDESONIDE 0.5 MG/2 ML NEBU NEB SCH ×2 (07:41→19:08)
[2017-12-23 08:00] VITALS: BP 151/76
[2017-12-23] MEDS: DOCUSATE SODIUM 100 MG/10 ML LIQUID UDC GT SCH (08:54)
[2017-12-23] MEDS: CALCIUM CARBONATE 500 MG TABLET GT SCH ×2 (08:54→21:48)
[2017-12-23] MEDS: NUTRISOURCE FIBER 4 GM PACKET GT SCH ×2 (08:54→21:48)
[2017-12-23] MEDS: CALMOSEPTINE 113 GM OINTMENT TP SCH ×2 (08:54→21:48)
[2017-12-23] MEDS: HYDROGEN PEROXIDE 3% 118 ML BOTTLE TP SCH ×2 (08:54→21:48)
[2017-12-23] MEDS: JEVITY 1.2 1000 ML LIQUID GT PRN (16:26)
[2017-12-23 20:46] VITALS: BP 105/66
[2017-12-23] MEDS: ATORVASTATIN 10 MG TABLET GT SCH (21:48)
[2017-12-24] MEDS: ALBUTEROL SULFATE 2.5 MG/3 ML NEBU NEB SCH ×6 (02:30→22:40)
[2017-12-24] MEDS: IPRATROPIUM BROMIDE 0.5 MG/2.5 ML NEBU NEB SCH ×6 (02:30→22:40)
[2017-12-24] MEDS: BACLOFEN 10 MG TABLET GT SCH ×3 (06:13→22:11)
[2017-12-24] MEDS: CHOLECALCIFEROL 1,000 UNIT TABLET GT SCH (06:13)
[2017-12-24 08:00] VITALS: BP 125/71
[2017-12-24] MEDS: BUDESONIDE 0.5 MG/2 ML NEBU NEB SCH ×2 (08:02→19:19)
[2017-12-24] MEDS: NUTRISOURCE FIBER 4 GM PACKET GT SCH ×2 (08:36→21:00)
[2017-12-24] MEDS: CALCIUM CARBONATE 500 MG TABLET GT SCH ×2 (08:36→21:00)
[2017-12-24] MEDS: DOCUSATE SODIUM 100 MG/10 ML LIQUID UDC GT SCH (08:36)
[2017-12-24] MEDS: CALMOSEPTINE 113 GM OINTMENT TP SCH ×2 (08:36→21:00)
[2017-12-24] MEDS: HYDROGEN PEROXIDE 3% 118 ML BOTTLE TP SCH ×2 (08:37→21:00)
[2017-12-24] MEDS: JEVITY 1.2 1000 ML LIQUID GT PRN (13:18)
[2017-12-24] MEDS: BISACODYL 10 MG SUPP.RECT RC PRN (18:54)
[2017-12-24 20:14] VITALS: BP 128/76
[2017-12-24] MEDS: MULTIVIT, IRON, MIN NO. 8, FA TABLET GT SCH (21:00)
[2017-12-24] MEDS: ATORVASTATIN 10 MG TABLET GT SCH (21:00)
[2017-12-25] MEDS: IPRATROPIUM BROMIDE 0.5 MG/2.5 ML NEBU NEB SCH ×6 (02:55→22:42)
[2017-12-25] MEDS: ALBUTEROL SULFATE 2.5 MG/3 ML NEBU NEB SCH ×6 (02:55→22:42)
[2017-12-25] MEDS: CHOLECALCIFEROL 1,000 UNIT TABLET GT SCH (05:38)
[2017-12-25] MEDS: BACLOFEN 10 MG TABLET GT SCH ×3 (05:38→21:54)
[2017-12-25 08:00] VITALS: BP 122/73
[2017-12-25] MEDS: BUDESONIDE 0.5 MG/2 ML NEBU NEB SCH ×2 (08:05→19:53)
[2017-12-25] MEDS: NUTRISOURCE FIBER 4 GM PACKET GT SCH ×2 (08:34→20:54)
[2017-12-25] MEDS: DOCUSATE SODIUM 100 MG/10 ML LIQUID UDC GT SCH (08:34)
[2017-12-25] MEDS: CALCIUM CARBONATE 500 MG TABLET GT SCH ×2 (08:34→20:54)
[2017-12-25] MEDS: CALMOSEPTINE 113 GM OINTMENT TP SCH ×2 (08:34→20:54)
[2017-12-25] MEDS: HYDROGEN PEROXIDE 3% 118 ML BOTTLE TP SCH ×2 (08:35→20:55)
[2017-12-25 20:00] VITALS: BP 103/61
[2017-12-25] MEDS: ATORVASTATIN 10 MG TABLET GT SCH (20:53)
[2017-12-26] MEDS: IPRATROPIUM BROMIDE 0.5 MG/2.5 ML NEBU NEB SCH ×6 (02:59→23:14)
[2017-12-26] MEDS: ALBUTEROL SULFATE 2.5 MG/3 ML NEBU NEB SCH ×6 (02:59→23:14)
[2017-12-26] MEDS: BACLOFEN 10 MG TABLET GT SCH ×3 (05:41→21:24)
[2017-12-26] MEDS: CHOLECALCIFEROL 1,000 UNIT TABLET GT SCH (05:41)
[2017-12-26] MEDS: BUDESONIDE 0.5 MG/2 ML NEBU NEB SCH ×2 (07:15→20:47)
[2017-12-26 08:00] VITALS: BP 127/76
[2017-12-26] MEDS: CALCIUM CARBONATE 500 MG TABLET GT SCH ×2 (08:52→21:23)
[2017-12-26] MEDS: CALMOSEPTINE 113 GM OINTMENT TP SCH ×2 (08:52→21:24)
[2017-12-26] MEDS: DOCUSATE SODIUM 100 MG/10 ML LIQUID UDC GT SCH (08:52)
[2017-12-26] MEDS: HYDROGEN PEROXIDE 3% 118 ML BOTTLE TP SCH ×2 (08:52→21:24)
[2017-12-26] MEDS: NUTRISOURCE FIBER 4 GM PACKET GT SCH ×2 (08:52→21:23)
[2017-12-26 20:34] VITALS: BP 138/80
[2017-12-26] MEDS: ATORVASTATIN 10 MG TABLET GT SCH (21:23)
[2017-12-26] MEDS: MULTIVIT, IRON, MIN NO. 8, FA TABLET GT SCH (21:23)
[2017-12-27] MEDS: ALBUTEROL SULFATE 2.5 MG/3 ML NEBU NEB SCH ×6 (04:08→23:48)
[2017-12-27] MEDS: IPRATROPIUM BROMIDE 0.5 MG/2.5 ML NEBU NEB SCH ×6 (04:08→23:48)
[2017-12-27] MEDS: BACLOFEN 10 MG TABLET GT SCH ×3 (05:50→21:43)
[2017-12-27] MEDS: CHOLECALCIFEROL 1,000 UNIT TABLET GT SCH (05:50)
[2017-12-27] MEDS: BUDESONIDE 0.5 MG/2 ML NEBU NEB SCH ×2 (07:03→20:38)
[2017-12-27 08:07] VITALS: BP 121/68
[2017-12-27] MEDS: NUTRISOURCE FIBER 4 GM PACKET GT SCH ×2 (09:00→21:43)
[2017-12-27] MEDS: CALMOSEPTINE 113 GM OINTMENT TP SCH ×2 (09:00→21:43)
[2017-12-27] MEDS: HYDROGEN PEROXIDE 3% 118 ML BOTTLE TP SCH ×2 (09:00→21:43)
[2017-12-27] MEDS: DOCUSATE SODIUM 100 MG/10 ML LIQUID UDC GT SCH (09:00)
[2017-12-27] MEDS: CALCIUM CARBONATE 500 MG TABLET GT SCH ×2 (09:00→21:43)
--- NOTE | 2017-12-27 15:13 | NUR ---
INTERDISCIPLINARY PLAN OF CARE CONFERENCE was held today. Patient's family was invited to the meeting, but they were unable to attend. Dr. Underwood and the Interdisciplinary Team reviewed the current plan of care in detail. RN provided updates on patient's medical condition. See RN IDT conference notes. No major changes were reported. See also all other disciplines IDT notes and physician's progress notes for additional details.
[2017-12-27] MEDS: JEVITY 1.2 1000 ML LIQUID GT PRN (16:48)
--- NOTE | 2017-12-27 17:04 | NUR ---
Pharmacy Update from Today's 12/27/17 IDT Meeting: VS: Temp 98.2 BP 127/76 HR 66 LABS: (from 02/20/17, no new) Wbc 5.4H/H 13.5/40.8Plt 139 Na 141K 3.5Cl 104CO2 31BUN/SCr 12/0.7 BS 127 MEDICATION USE REVIEWED: > Pt not on any anti-psych or anti-seizure medications > PRN MED USAGE: (November) Tylenol for pain used x 0 Tylenol for temp used x 0 Bisacodyl PRN x2 NEW ORDERS NOTED: > NA Pt was reviewed and discussed in depth, no medication concerns or issues reported at this time, will continue to follow
[2017-12-27 20:11] VITALS: BP 91/54
[2017-12-27] MEDS: ATORVASTATIN 10 MG TABLET GT SCH (21:43)
[2017-12-28] MEDS: ALBUTEROL SULFATE 2.5 MG/3 ML NEBU NEB SCH ×6 (03:27→22:40)
[2017-12-28] MEDS: IPRATROPIUM BROMIDE 0.5 MG/2.5 ML NEBU NEB SCH ×6 (03:27→22:40)
[2017-12-28] MEDS: BACLOFEN 10 MG TABLET GT SCH ×3 (05:54→21:30)
[2017-12-28] MEDS: CHOLECALCIFEROL 1,000 UNIT TABLET GT SCH (05:54)
[2017-12-28] MEDS: BUDESONIDE 0.5 MG/2 ML NEBU NEB SCH ×2 (07:09→19:58)
[2017-12-28 08:08] VITALS: BP 114/78
[2017-12-28] MEDS: HYDROGEN PEROXIDE 3% 118 ML BOTTLE TP SCH ×2 (08:12→21:30)
[2017-12-28] MEDS: CALMOSEPTINE 113 GM OINTMENT TP SCH ×2 (08:12→21:30)
[2017-12-28] MEDS: DOCUSATE SODIUM 100 MG/10 ML LIQUID UDC GT SCH (08:12)
[2017-12-28] MEDS: CALCIUM CARBONATE 500 MG TABLET GT SCH ×2 (08:12→21:30)
[2017-12-28] MEDS: NUTRISOURCE FIBER 4 GM PACKET GT SCH ×2 (08:12→21:30)
[2017-12-28] MEDS: MULTIVIT, IRON, MIN NO. 8, FA TABLET GT SCH (21:30)
[2017-12-28] MEDS: ATORVASTATIN 10 MG TABLET GT SCH (21:30)
[2017-12-28 22:00] VITALS: BP 111/73
[2017-12-29] MEDS: IPRATROPIUM BROMIDE 0.5 MG/2.5 ML NEBU NEB SCH ×6 (02:34→22:40)
[2017-12-29] MEDS: ALBUTEROL SULFATE 2.5 MG/3 ML NEBU NEB SCH ×6 (02:34→22:40)
[2017-12-29] MEDS: BACLOFEN 10 MG TABLET GT SCH ×3 (05:48→21:13)
[2017-12-29] MEDS: CHOLECALCIFEROL 1,000 UNIT TABLET GT SCH (05:48)
[2017-12-29] MEDS: BUDESONIDE 0.5 MG/2 ML NEBU NEB SCH ×2 (07:05→19:25)
[2017-12-29] MEDS: CALMOSEPTINE 113 GM OINTMENT TP SCH ×2 (08:58→21:13)
[2017-12-29] MEDS: CALCIUM CARBONATE 500 MG TABLET GT SCH ×2 (08:58→21:13)
[2017-12-29] MEDS: HYDROGEN PEROXIDE 3% 118 ML BOTTLE TP SCH ×2 (08:58→21:13)
[2017-12-29] MEDS: DOCUSATE SODIUM 100 MG/10 ML LIQUID UDC GT SCH (08:58)
[2017-12-29] MEDS: NUTRISOURCE FIBER 4 GM PACKET GT SCH ×2 (08:58→21:13)
[2017-12-29 09:53] VITALS: BP 109/71
[2017-12-29] MEDS: JEVITY 1.2 1000 ML LIQUID GT PRN (17:42)
[2017-12-29 20:44] VITALS: BP 124/79
[2017-12-29] MEDS: ATORVASTATIN 10 MG TABLET GT SCH (21:13)
[2017-12-30] MEDS: IPRATROPIUM BROMIDE 0.5 MG/2.5 ML NEBU NEB SCH ×6 (02:30→22:40)
[2017-12-30] MEDS: ALBUTEROL SULFATE 2.5 MG/3 ML NEBU NEB SCH ×6 (02:30→22:40)
[2017-12-30] MEDS: BACLOFEN 10 MG TABLET GT SCH ×3 (06:41→21:49)
[2017-12-30] MEDS: CHOLECALCIFEROL 1,000 UNIT TABLET GT SCH (06:42)
[2017-12-30] MEDS: BUDESONIDE 0.5 MG/2 ML NEBU NEB SCH ×2 (06:55→19:32)
[2017-12-30 08:00] VITALS: BP 105/61
[2017-12-30] MEDS: DOCUSATE SODIUM 100 MG/10 ML LIQUID UDC GT SCH (08:30)
[2017-12-30] MEDS: HYDROGEN PEROXIDE 3% 118 ML BOTTLE TP SCH ×2 (08:30→21:49)
[2017-12-30] MEDS: NUTRISOURCE FIBER 4 GM PACKET GT SCH ×2 (08:30→21:49)
[2017-12-30] MEDS: CALCIUM CARBONATE 500 MG TABLET GT SCH ×2 (08:30→21:49)
[2017-12-30] MEDS: CALMOSEPTINE 113 GM OINTMENT TP SCH ×2 (08:30→21:49)
[2017-12-30] MEDS: JEVITY 1.2 1000 ML LIQUID GT PRN (14:52)
--- NOTE | 2017-12-30 16:48 | NUR ---
SEEN BY HALINA JETER.
[2017-12-30] MEDS: MULTIVIT, IRON, MIN NO. 8, FA TABLET GT SCH (21:49)
[2017-12-30] MEDS: ATORVASTATIN 10 MG TABLET GT SCH (21:49)
[2017-12-30 22:00] VITALS: BP 113/67
[2017-12-31] MEDS: ALBUTEROL SULFATE 2.5 MG/3 ML NEBU NEB SCH ×6 (02:43→22:40)
[2017-12-31] MEDS: IPRATROPIUM BROMIDE 0.5 MG/2.5 ML NEBU NEB SCH ×6 (02:43→22:40)
[2017-12-31] MEDS: BACLOFEN 10 MG TABLET GT SCH ×3 (05:54→21:45)
[2017-12-31] MEDS: CHOLECALCIFEROL 1,000 UNIT TABLET GT SCH (05:54)
[2017-12-31] MEDS: BUDESONIDE 0.5 MG/2 ML NEBU NEB SCH ×2 (07:06→19:21)
[2017-12-31 08:00] VITALS: BP 156/86
[2017-12-31] MEDS: DOCUSATE SODIUM 100 MG/10 ML LIQUID UDC GT SCH (09:00)
[2017-12-31] MEDS: NUTRISOURCE FIBER 4 GM PACKET GT SCH ×2 (09:00→21:44)
[2017-12-31] MEDS: CALMOSEPTINE 113 GM OINTMENT TP SCH ×2 (09:00→21:45)
[2017-12-31] MEDS: CALCIUM CARBONATE 500 MG TABLET GT SCH ×2 (09:00→21:44)
[2017-12-31] MEDS: HYDROGEN PEROXIDE 3% 118 ML BOTTLE TP SCH ×2 (09:00→21:45)
--- NOTE | 2017-12-31 18:45 | NUR ---
SEEN BY HANSEL Goode AND BY DR. ALBERTO JETER.
[2017-12-31] MEDS: ATORVASTATIN 10 MG TABLET GT SCH (21:44)
[2017-12-31 22:00] VITALS: BP 100/57
[2018-01-01] MEDS: ALBUTEROL SULFATE 2.5 MG/3 ML NEBU NEB SCH ×6 (02:49→22:50)
[2018-01-01] MEDS: IPRATROPIUM BROMIDE 0.5 MG/2.5 ML NEBU NEB SCH ×6 (02:49→22:50)
[2018-01-01] MEDS: CHOLECALCIFEROL 1,000 UNIT TABLET GT SCH (05:48)
[2018-01-01] MEDS: BACLOFEN 10 MG TABLET GT SCH ×3 (05:48→21:36)
[2018-01-01] MEDS: BUDESONIDE 0.5 MG/2 ML NEBU NEB SCH ×2 (07:21→19:27)
[2018-01-01 08:00] VITALS: BP 106/60
[2018-01-01] MEDS: CALMOSEPTINE 113 GM OINTMENT TP SCH ×2 (09:08→21:35)
[2018-01-01] MEDS: NUTRISOURCE FIBER 4 GM PACKET GT SCH ×2 (09:08→21:35)
[2018-01-01] MEDS: DOCUSATE SODIUM 100 MG/10 ML LIQUID UDC GT SCH (09:08)
[2018-01-01] MEDS: HYDROGEN PEROXIDE 3% 118 ML BOTTLE TP SCH ×2 (09:08→21:35)
[2018-01-01] MEDS: CALCIUM CARBONATE 500 MG TABLET GT SCH ×2 (09:08→21:35)
[2018-01-01 20:33] VITALS: BP 105/66
[2018-01-01] MEDS: MULTIVIT, IRON, MIN NO. 8, FA TABLET GT SCH (21:35)
[2018-01-01] MEDS: ATORVASTATIN 10 MG TABLET GT SCH (21:35)
[2018-01-02] MEDS: IPRATROPIUM BROMIDE 0.5 MG/2.5 ML NEBU NEB SCH ×6 (03:12→22:37)
[2018-01-02] MEDS: ALBUTEROL SULFATE 2.5 MG/3 ML NEBU NEB SCH ×6 (03:12→22:37)
[2018-01-02] MEDS: BACLOFEN 10 MG TABLET GT SCH ×3 (05:55→21:10)
[2018-01-02] MEDS: CHOLECALCIFEROL 1,000 UNIT TABLET GT SCH (05:55)
[2018-01-02] MEDS: BUDESONIDE 0.5 MG/2 ML NEBU NEB SCH ×2 (07:09→19:17)
[2018-01-02 08:00] VITALS: BP 100/59
[2018-01-02] MEDS: NUTRISOURCE FIBER 4 GM PACKET GT SCH ×2 (09:10→21:10)
[2018-01-02] MEDS: DOCUSATE SODIUM 100 MG/10 ML LIQUID UDC GT SCH (09:10)
[2018-01-02] MEDS: HYDROGEN PEROXIDE 3% 118 ML BOTTLE TP SCH ×2 (09:10→21:10)
[2018-01-02] MEDS: CALMOSEPTINE 113 GM OINTMENT TP SCH ×2 (09:10→21:10)
[2018-01-02] MEDS: CALCIUM CARBONATE 500 MG TABLET GT SCH ×2 (09:10→21:10)
[2018-01-02 20:00] VITALS: BP 98/67
[2018-01-02] MEDS: ATORVASTATIN 10 MG TABLET GT SCH (21:10)
[2018-01-03] MEDS: ALBUTEROL SULFATE 2.5 MG/3 ML NEBU NEB SCH ×6 (02:56→22:40)
[2018-01-03] MEDS: IPRATROPIUM BROMIDE 0.5 MG/2.5 ML NEBU NEB SCH ×6 (02:56→22:40)
[2018-01-03] MEDS: BACLOFEN 10 MG TABLET GT SCH ×3 (05:43→21:35)
[2018-01-03] MEDS: CHOLECALCIFEROL 1,000 UNIT TABLET GT SCH (05:43)
[2018-01-03] MEDS: BUDESONIDE 0.5 MG/2 ML NEBU NEB SCH ×2 (07:33→19:17)
[2018-01-03 08:00] VITALS: BP 105/64
[2018-01-03] MEDS: DOCUSATE SODIUM 100 MG/10 ML LIQUID UDC GT SCH (09:02)
[2018-01-03] MEDS: NUTRISOURCE FIBER 4 GM PACKET GT SCH ×2 (09:02→21:35)
[2018-01-03] MEDS: CALCIUM CARBONATE 500 MG TABLET GT SCH ×2 (09:02→21:35)
[2018-01-03] MEDS: CALMOSEPTINE 113 GM OINTMENT TP SCH ×2 (09:03→21:35)
[2018-01-03] MEDS: HYDROGEN PEROXIDE 3% 118 ML BOTTLE TP SCH ×2 (09:03→21:35)
[2018-01-03] MEDS: JEVITY 1.2 1000 ML LIQUID GT PRN (13:12)
[2018-01-03 20:53] VITALS: BP 105/70
[2018-01-03] MEDS: MULTIVIT, IRON, MIN NO. 8, FA TABLET GT SCH (21:35)
[2018-01-03] MEDS: ATORVASTATIN 10 MG TABLET GT SCH (21:35)
[2018-01-04] MEDS: ALBUTEROL SULFATE 2.5 MG/3 ML NEBU NEB SCH ×6 (03:03→22:40)
[2018-01-04] MEDS: IPRATROPIUM BROMIDE 0.5 MG/2.5 ML NEBU NEB SCH ×6 (03:03→22:40)
[2018-01-04] MEDS: BACLOFEN 10 MG TABLET GT SCH ×3 (05:47→21:01)
[2018-01-04] MEDS: CHOLECALCIFEROL 1,000 UNIT TABLET GT SCH (05:47)
[2018-01-04] MEDS: BUDESONIDE 0.5 MG/2 ML NEBU NEB SCH ×2 (07:11→19:26)
[2018-01-04 08:05] VITALS: BP 116/74
[2018-01-04] MEDS: CALCIUM CARBONATE 500 MG TABLET GT SCH ×2 (08:54→21:01)
[2018-01-04] MEDS: DOCUSATE SODIUM 100 MG/10 ML LIQUID UDC GT SCH (08:54)
[2018-01-04] MEDS: CALMOSEPTINE 113 GM OINTMENT TP SCH ×2 (08:54→21:01)
[2018-01-04] MEDS: HYDROGEN PEROXIDE 3% 118 ML BOTTLE TP SCH ×2 (08:54→21:01)
[2018-01-04] MEDS: NUTRISOURCE FIBER 4 GM PACKET GT SCH ×2 (08:54→21:01)
[2018-01-04 20:49] VITALS: BP 128/84
[2018-01-04] MEDS: ATORVASTATIN 10 MG TABLET GT SCH (21:01)
[2018-01-05] MEDS: IPRATROPIUM BROMIDE 0.5 MG/2.5 ML NEBU NEB SCH ×5 (02:48→19:52)
[2018-01-05] MEDS: ALBUTEROL SULFATE 2.5 MG/3 ML NEBU NEB SCH ×5 (02:48→19:52)
[2018-01-05] MEDS: CHOLECALCIFEROL 1,000 UNIT TABLET GT SCH (05:37)
[2018-01-05] MEDS: BACLOFEN 10 MG TABLET GT SCH ×3 (05:37→21:18)
[2018-01-05] MEDS: BUDESONIDE 0.5 MG/2 ML NEBU NEB SCH ×2 (08:11→19:52)
[2018-01-05] MEDS: HYDROGEN PEROXIDE 3% 118 ML BOTTLE TP SCH ×2 (09:03→21:18)
[2018-01-05] MEDS: CALCIUM CARBONATE 500 MG TABLET GT SCH ×2 (09:03→21:18)
[2018-01-05] MEDS: NUTRISOURCE FIBER 4 GM PACKET GT SCH ×2 (09:03→21:18)
[2018-01-05] MEDS: DOCUSATE SODIUM 100 MG/10 ML LIQUID UDC GT SCH (09:03)
[2018-01-05] MEDS: CALMOSEPTINE 113 GM OINTMENT TP SCH ×2 (09:03→21:18)
[2018-01-05 11:08] VITALS: BP 114/72
[2018-01-05 20:39] VITALS: BP 97/61
[2018-01-05] MEDS: ATORVASTATIN 10 MG TABLET GT SCH (21:18)
[2018-01-05] MEDS: MULTIVIT, IRON, MIN NO. 8, FA TABLET GT SCH (21:18)
[2018-01-06] MEDS: ALBUTEROL SULFATE 2.5 MG/3 ML NEBU NEB SCH ×6 (00:02→18:49)
[2018-01-06] MEDS: IPRATROPIUM BROMIDE 0.5 MG/2.5 ML NEBU NEB SCH ×6 (00:02→18:48)
[2018-01-06] MEDS: BACLOFEN 10 MG TABLET GT SCH ×3 (06:55→21:43)
[2018-01-06] MEDS: CHOLECALCIFEROL 1,000 UNIT TABLET GT SCH (06:55)
[2018-01-06] MEDS: BUDESONIDE 0.5 MG/2 ML NEBU NEB SCH ×2 (07:55→18:48)
[2018-01-06 08:00] VITALS: BP 130/69
[2018-01-06] MEDS: HYDROGEN PEROXIDE 3% 118 ML BOTTLE TP SCH ×2 (08:44→21:43)
[2018-01-06] MEDS: NUTRISOURCE FIBER 4 GM PACKET GT SCH ×2 (08:44→21:42)
[2018-01-06] MEDS: DOCUSATE SODIUM 100 MG/10 ML LIQUID UDC GT SCH (08:44)
[2018-01-06] MEDS: CALCIUM CARBONATE 500 MG TABLET GT SCH ×2 (08:44→21:43)
[2018-01-06] MEDS: CALMOSEPTINE 113 GM OINTMENT TP SCH ×2 (09:00→21:43)
[2018-01-06] MEDS: JEVITY 1.2 1000 ML LIQUID GT PRN (15:21)
[2018-01-06 21:18] VITALS: BP 116/62
[2018-01-06] MEDS: ATORVASTATIN 10 MG TABLET GT SCH (21:42)
[2018-01-07] MEDS: IPRATROPIUM BROMIDE 0.5 MG/2.5 ML NEBU NEB SCH ×7 (00:17→22:40)
[2018-01-07] MEDS: ALBUTEROL SULFATE 2.5 MG/3 ML NEBU NEB SCH ×7 (00:17→22:40)
[2018-01-07] MEDS: BACLOFEN 10 MG TABLET GT SCH ×3 (06:25→21:41)
[2018-01-07] MEDS: CHOLECALCIFEROL 1,000 UNIT TABLET GT SCH (06:25)
[2018-01-07 08:00] VITALS: BP 135/93
[2018-01-07] MEDS: BUDESONIDE 0.5 MG/2 ML NEBU NEB SCH ×2 (08:02→19:18)
[2018-01-07] MEDS: DOCUSATE SODIUM 100 MG/10 ML LIQUID UDC GT SCH (08:20)
[2018-01-07] MEDS: HYDROGEN PEROXIDE 3% 118 ML BOTTLE TP SCH ×2 (08:20→21:41)
[2018-01-07] MEDS: NUTRISOURCE FIBER 4 GM PACKET GT SCH ×2 (08:20→21:41)
[2018-01-07] MEDS: CALCIUM CARBONATE 500 MG TABLET GT SCH ×2 (08:20→21:41)
[2018-01-07] MEDS: CALMOSEPTINE 113 GM OINTMENT TP SCH ×2 (08:20→21:41)
[2018-01-07 21:20] VITALS: BP 130/87
[2018-01-07] MEDS: MULTIVIT, IRON, MIN NO. 8, FA TABLET GT SCH (21:41)
[2018-01-07] MEDS: ATORVASTATIN 10 MG TABLET GT SCH (21:41)
[2018-01-08] MEDS: IPRATROPIUM BROMIDE 0.5 MG/2.5 ML NEBU NEB SCH ×6 (03:02→22:38)
[2018-01-08] MEDS: ALBUTEROL SULFATE 2.5 MG/3 ML NEBU NEB SCH ×6 (03:02→22:38)
[2018-01-08] MEDS: BACLOFEN 10 MG TABLET GT SCH ×3 (05:35→22:23)
[2018-01-08] MEDS: CHOLECALCIFEROL 1,000 UNIT TABLET GT SCH (05:35)
[2018-01-08] MEDS: BUDESONIDE 0.5 MG/2 ML NEBU NEB SCH ×2 (07:15→19:51)
--- NOTE | 2018-01-08 07:27 | NUR ---
Seen and examined by Dorothy Rhodes NP with no orders.
[2018-01-08 08:00] VITALS: BP 107/61
[2018-01-08] MEDS: DOCUSATE SODIUM 100 MG/10 ML LIQUID UDC GT SCH (09:50)
[2018-01-08] MEDS: CALCIUM CARBONATE 500 MG TABLET GT SCH ×2 (09:51→20:10)
[2018-01-08] MEDS: HYDROGEN PEROXIDE 3% 118 ML BOTTLE TP SCH ×2 (09:51→20:10)
[2018-01-08] MEDS: NUTRISOURCE FIBER 4 GM PACKET GT SCH ×2 (09:51→20:10)
[2018-01-08] MEDS: CALMOSEPTINE 113 GM OINTMENT TP SCH ×2 (09:51→20:10)
[2018-01-08] MEDS: ATORVASTATIN 10 MG TABLET GT SCH (20:09)
[2018-01-08] MEDS: JEVITY 1.2 1000 ML LIQUID GT PRN (20:10)
[2018-01-08 20:48] VITALS: BP 119/68
[2018-01-09] MEDS: IPRATROPIUM BROMIDE 0.5 MG/2.5 ML NEBU NEB SCH ×6 (02:34→22:40)
[2018-01-09] MEDS: ALBUTEROL SULFATE 2.5 MG/3 ML NEBU NEB SCH ×6 (02:34→22:40)
[2018-01-09] MEDS: BACLOFEN 10 MG TABLET GT SCH ×3 (05:33→21:04)
[2018-01-09] MEDS: CHOLECALCIFEROL 1,000 UNIT TABLET GT SCH (05:33)
[2018-01-09] MEDS: BUDESONIDE 0.5 MG/2 ML NEBU NEB SCH ×2 (07:05→19:45)
[2018-01-09 08:00] VITALS: BP 129/85
[2018-01-09] MEDS: CALCIUM CARBONATE 500 MG TABLET GT SCH ×2 (09:00→20:59)
[2018-01-09] MEDS: CALMOSEPTINE 113 GM OINTMENT TP SCH ×2 (09:00→21:02)
[2018-01-09] MEDS: NUTRISOURCE FIBER 4 GM PACKET GT SCH ×2 (09:00→20:59)
[2018-01-09] MEDS: DOCUSATE SODIUM 100 MG/10 ML LIQUID UDC GT SCH (09:00)
[2018-01-09] MEDS: HYDROGEN PEROXIDE 3% 118 ML BOTTLE TP SCH ×2 (09:00→21:03)
[2018-01-09 20:00] VITALS: BP 110/47
[2018-01-09] MEDS: ATORVASTATIN 10 MG TABLET GT SCH (20:59)
[2018-01-09] MEDS: MULTIVIT, IRON, MIN NO. 8, FA TABLET GT SCH (21:02)
[2018-01-10] MEDS: ALBUTEROL SULFATE 2.5 MG/3 ML NEBU NEB SCH ×6 (02:30→23:09)
[2018-01-10] MEDS: IPRATROPIUM BROMIDE 0.5 MG/2.5 ML NEBU NEB SCH ×6 (02:30→23:09)
[2018-01-10] MEDS: CHOLECALCIFEROL 1,000 UNIT TABLET GT SCH (05:50)
[2018-01-10] MEDS: BACLOFEN 10 MG TABLET GT SCH ×3 (05:50→21:10)
[2018-01-10] MEDS: BUDESONIDE 0.5 MG/2 ML NEBU NEB SCH ×2 (07:52→20:23)
[2018-01-10 08:00] VITALS: BP 116/82
[2018-01-10] MEDS: CALMOSEPTINE 113 GM OINTMENT TP SCH ×2 (09:00→21:10)
[2018-01-10] MEDS: HYDROGEN PEROXIDE 3% 118 ML BOTTLE TP SCH ×2 (09:00→21:10)
[2018-01-10] MEDS: DOCUSATE SODIUM 100 MG/10 ML LIQUID UDC GT SCH (09:00)
[2018-01-10] MEDS: NUTRISOURCE FIBER 4 GM PACKET GT SCH ×2 (09:00→21:10)
[2018-01-10] MEDS: CALCIUM CARBONATE 500 MG TABLET GT SCH ×2 (09:00→21:10)
[2018-01-10] MEDS: JEVITY 1.2 1000 ML LIQUID GT PRN (19:56)
[2018-01-10 20:00] VITALS: BP 137/89
[2018-01-10] MEDS: ATORVASTATIN 10 MG TABLET GT SCH (21:10)
[2018-01-11] MEDS: IPRATROPIUM BROMIDE 0.5 MG/2.5 ML NEBU NEB SCH ×6 (04:05→22:46)
[2018-01-11] MEDS: ALBUTEROL SULFATE 2.5 MG/3 ML NEBU NEB SCH ×6 (04:05→22:46)
[2018-01-11] MEDS: BACLOFEN 10 MG TABLET GT SCH ×3 (05:19→21:17)
[2018-01-11] MEDS: CHOLECALCIFEROL 1,000 UNIT TABLET GT SCH (05:31)
[2018-01-11] MEDS: BUDESONIDE 0.5 MG/2 ML NEBU NEB SCH ×2 (07:10→19:51)
[2018-01-11 08:00] VITALS: BP 138/81
[2018-01-11] MEDS: CALCIUM CARBONATE 500 MG TABLET GT SCH ×2 (09:00→21:17)
[2018-01-11] MEDS: HYDROGEN PEROXIDE 3% 118 ML BOTTLE TP SCH ×2 (09:00→21:17)
[2018-01-11] MEDS: DOCUSATE SODIUM 100 MG/10 ML LIQUID UDC GT SCH (09:00)
[2018-01-11] MEDS: CALMOSEPTINE 113 GM OINTMENT TP SCH ×2 (09:00→21:17)
[2018-01-11] MEDS: NUTRISOURCE FIBER 4 GM PACKET GT SCH ×2 (09:00→21:17)
[2018-01-11 20:00] VITALS: BP 133/87
[2018-01-11] MEDS: MULTIVIT, IRON, MIN NO. 8, FA TABLET GT SCH (21:17)
[2018-01-11] MEDS: ATORVASTATIN 10 MG TABLET GT SCH (21:17)
[2018-01-11] MEDS: JEVITY 1.2 1000 ML LIQUID GT PRN (21:17)
[2018-01-12] MEDS: ALBUTEROL SULFATE 2.5 MG/3 ML NEBU NEB SCH ×6 (02:30→22:44)
[2018-01-12] MEDS: IPRATROPIUM BROMIDE 0.5 MG/2.5 ML NEBU NEB SCH ×6 (02:30→22:44)
[2018-01-12] MEDS: BACLOFEN 10 MG TABLET GT SCH ×3 (05:28→21:12)
[2018-01-12] MEDS: CHOLECALCIFEROL 1,000 UNIT TABLET GT SCH (05:44)
[2018-01-12] MEDS: BUDESONIDE 0.5 MG/2 ML NEBU NEB SCH ×2 (07:19→20:19)
[2018-01-12] MEDS: DOCUSATE SODIUM 100 MG/10 ML LIQUID UDC GT SCH (08:49)
[2018-01-12] MEDS: NUTRISOURCE FIBER 4 GM PACKET GT SCH ×2 (08:49→21:12)
[2018-01-12] MEDS: CALCIUM CARBONATE 500 MG TABLET GT SCH ×2 (08:49→21:12)
[2018-01-12] MEDS: CALMOSEPTINE 113 GM OINTMENT TP SCH ×2 (08:49→21:12)
[2018-01-12] MEDS: HYDROGEN PEROXIDE 3% 118 ML BOTTLE TP SCH ×2 (08:50→21:12)
[2018-01-12 20:00] VITALS: BP 117/75
[2018-01-12] MEDS: ATORVASTATIN 10 MG TABLET GT SCH (21:12)
[2018-01-12] MEDS: JEVITY 1.2 1000 ML LIQUID GT PRN (21:13)
[2018-01-13] MEDS: IPRATROPIUM BROMIDE 0.5 MG/2.5 ML NEBU NEB SCH ×6 (02:44→22:39)
[2018-01-13] MEDS: ALBUTEROL SULFATE 2.5 MG/3 ML NEBU NEB SCH ×6 (02:45→22:39)
[2018-01-13] MEDS: BACLOFEN 10 MG TABLET GT SCH ×3 (05:19→21:03)
[2018-01-13] MEDS: CHOLECALCIFEROL 1,000 UNIT TABLET GT SCH (05:39)
[2018-01-13] MEDS: BUDESONIDE 0.5 MG/2 ML NEBU NEB SCH ×2 (07:06→19:44)
[2018-01-13 08:06] VITALS: BP 116/77
[2018-01-13] MEDS: CALCIUM CARBONATE 500 MG TABLET GT SCH ×2 (08:19→21:03)
[2018-01-13] MEDS: DOCUSATE SODIUM 100 MG/10 ML LIQUID UDC GT SCH (08:19)
[2018-01-13] MEDS: NUTRISOURCE FIBER 4 GM PACKET GT SCH ×2 (08:19→21:03)
[2018-01-13] MEDS: CALMOSEPTINE 113 GM OINTMENT TP SCH ×2 (08:20→21:03)
[2018-01-13] MEDS: HYDROGEN PEROXIDE 3% 118 ML BOTTLE TP SCH ×2 (08:20→21:03)
[2018-01-13 20:57] VITALS: BP 117/69
[2018-01-13] MEDS: ATORVASTATIN 10 MG TABLET GT SCH (21:03)
[2018-01-13] MEDS: MULTIVIT, IRON, MIN NO. 8, FA TABLET GT SCH (21:03)
[2018-01-13] MEDS: JEVITY 1.2 1000 ML LIQUID GT PRN (23:14)
[2018-01-14] MEDS: ALBUTEROL SULFATE 2.5 MG/3 ML NEBU NEB SCH ×6 (02:56→22:40)
[2018-01-14] MEDS: IPRATROPIUM BROMIDE 0.5 MG/2.5 ML NEBU NEB SCH ×6 (02:56→22:40)
[2018-01-14] MEDS: CHOLECALCIFEROL 1,000 UNIT TABLET GT SCH (05:39)
[2018-01-14] MEDS: BACLOFEN 10 MG TABLET GT SCH ×3 (05:39→21:11)
[2018-01-14] MEDS: BUDESONIDE 0.5 MG/2 ML NEBU NEB SCH ×2 (07:50→19:30)
[2018-01-14 08:00] VITALS: BP 124/82
[2018-01-14] MEDS: DOCUSATE SODIUM 100 MG/10 ML LIQUID UDC GT SCH (08:29)
[2018-01-14] MEDS: NUTRISOURCE FIBER 4 GM PACKET GT SCH ×2 (08:29→21:11)
[2018-01-14] MEDS: CALCIUM CARBONATE 500 MG TABLET GT SCH ×2 (08:29→21:11)
[2018-01-14] MEDS: HYDROGEN PEROXIDE 3% 118 ML BOTTLE TP SCH ×2 (08:30→21:11)
[2018-01-14] MEDS: CALMOSEPTINE 113 GM OINTMENT TP SCH ×2 (08:30→21:11)
[2018-01-14] MEDS: ATORVASTATIN 10 MG TABLET GT SCH (21:11)
[2018-01-14 22:23] VITALS: BP 123/80
[2018-01-15] MEDS: JEVITY 1.2 1000 ML LIQUID GT PRN ×2 (00:22→21:57)
[2018-01-15] MEDS: IPRATROPIUM BROMIDE 0.5 MG/2.5 ML NEBU NEB SCH ×6 (02:42→22:36)
[2018-01-15] MEDS: ALBUTEROL SULFATE 2.5 MG/3 ML NEBU NEB SCH ×6 (02:42→22:37)
[2018-01-15] MEDS: BACLOFEN 10 MG TABLET GT SCH ×3 (06:02→21:30)
[2018-01-15] MEDS: CHOLECALCIFEROL 1,000 UNIT TABLET GT SCH (06:02)
--- NOTE | 2018-01-15 07:30 | NUR ---
SEEN BY HALINA JETER.
[2018-01-15 08:00] VITALS: BP 127/94
[2018-01-15] MEDS: BUDESONIDE 0.5 MG/2 ML NEBU NEB SCH ×2 (08:24→19:44)
[2018-01-15] MEDS: HYDROGEN PEROXIDE 3% 118 ML BOTTLE TP SCH ×2 (09:00→21:29)
[2018-01-15] MEDS: NUTRISOURCE FIBER 4 GM PACKET GT SCH ×2 (09:00→21:28)
[2018-01-15] MEDS: CALCIUM CARBONATE 500 MG TABLET GT SCH ×2 (09:00→21:29)
[2018-01-15] MEDS: CALMOSEPTINE 113 GM OINTMENT TP SCH ×2 (09:00→21:29)
[2018-01-15] MEDS: DOCUSATE SODIUM 100 MG/10 ML LIQUID UDC GT SCH (09:00)
[2018-01-15] MEDS: ATORVASTATIN 10 MG TABLET GT SCH (21:27)
[2018-01-15] MEDS: MULTIVIT, IRON, MIN NO. 8, FA TABLET GT SCH (21:29)
[2018-01-15 21:48] VITALS: BP 122/69
[2018-01-16] MEDS: IPRATROPIUM BROMIDE 0.5 MG/2.5 ML NEBU NEB SCH ×6 (02:49→22:50)
[2018-01-16] MEDS: ALBUTEROL SULFATE 2.5 MG/3 ML NEBU NEB SCH ×6 (02:49→22:50)
[2018-01-16] MEDS: BACLOFEN 10 MG TABLET GT SCH ×3 (05:20→21:19)
[2018-01-16] MEDS: CHOLECALCIFEROL 1,000 UNIT TABLET GT SCH (06:16)
[2018-01-16] MEDS: BUDESONIDE 0.5 MG/2 ML NEBU NEB SCH ×2 (07:04→20:00)
[2018-01-16] MEDS: DOCUSATE SODIUM 100 MG/10 ML LIQUID UDC GT SCH (08:13)
[2018-01-16] MEDS: CALCIUM CARBONATE 500 MG TABLET GT SCH ×2 (08:13→21:18)
[2018-01-16] MEDS: CALMOSEPTINE 113 GM OINTMENT TP SCH ×2 (08:13→21:18)
[2018-01-16] MEDS: NUTRISOURCE FIBER 4 GM PACKET GT SCH ×2 (08:13→21:18)
[2018-01-16] MEDS: HYDROGEN PEROXIDE 3% 118 ML BOTTLE TP SCH ×2 (08:13→21:18)
[2018-01-16 09:27] VITALS: BP 103/71
--- NOTE | 2018-01-16 14:00 | NUR ---
seen and examined by Myrtle Shea and Dorothy Rodriguez ,no new orders.
[2018-01-16] MEDS: ATORVASTATIN 10 MG TABLET GT SCH (21:18)
[2018-01-17] MEDS: JEVITY 1.2 1000 ML LIQUID GT PRN (00:51)
[2018-01-17 02:39] VITALS: BP 102/58
[2018-01-17] MEDS: ALBUTEROL SULFATE 2.5 MG/3 ML NEBU NEB SCH ×6 (03:01→22:43)
[2018-01-17] MEDS: IPRATROPIUM BROMIDE 0.5 MG/2.5 ML NEBU NEB SCH ×6 (03:01→22:43)
[2018-01-17] MEDS: BACLOFEN 10 MG TABLET GT SCH ×3 (05:05→21:03)
[2018-01-17] MEDS: CHOLECALCIFEROL 1,000 UNIT TABLET GT SCH (06:19)
[2018-01-17 08:00] VITALS: BP 121/84
[2018-01-17] MEDS: BUDESONIDE 0.5 MG/2 ML NEBU NEB SCH ×2 (08:02→20:10)
[2018-01-17] MEDS: NUTRISOURCE FIBER 4 GM PACKET GT SCH ×2 (08:26→21:01)
[2018-01-17] MEDS: DOCUSATE SODIUM 100 MG/10 ML LIQUID UDC GT SCH (08:26)
[2018-01-17] MEDS: HYDROGEN PEROXIDE 3% 118 ML BOTTLE TP SCH ×2 (08:26→21:03)
[2018-01-17] MEDS: CALCIUM CARBONATE 500 MG TABLET GT SCH ×2 (08:26→21:02)
[2018-01-17] MEDS: CALMOSEPTINE 113 GM OINTMENT TP SCH ×2 (08:26→21:03)
[2018-01-17 20:25] VITALS: BP 118/69
[2018-01-17] MEDS: ATORVASTATIN 10 MG TABLET GT SCH (21:01)
[2018-01-17] MEDS: MULTIVIT, IRON, MIN NO. 8, FA TABLET GT SCH (21:02)
[2018-01-18] MEDS: JEVITY 1.2 1000 ML LIQUID GT PRN (00:45)
[2018-01-18] MEDS: ALBUTEROL SULFATE 2.5 MG/3 ML NEBU NEB SCH ×6 (03:23→23:08)
[2018-01-18] MEDS: IPRATROPIUM BROMIDE 0.5 MG/2.5 ML NEBU NEB SCH ×6 (03:23→23:08)
[2018-01-18] MEDS: BACLOFEN 10 MG TABLET GT SCH ×3 (05:49→21:14)
[2018-01-18] MEDS: CHOLECALCIFEROL 1,000 UNIT TABLET GT SCH (05:49)
[2018-01-18] MEDS: BUDESONIDE 0.5 MG/2 ML NEBU NEB SCH ×2 (07:02→20:29)
[2018-01-18 08:00] VITALS: BP 135/81
[2018-01-18] MEDS: CALCIUM CARBONATE 500 MG TABLET GT SCH ×2 (09:07→20:33)
[2018-01-18] MEDS: HYDROGEN PEROXIDE 3% 118 ML BOTTLE TP SCH ×2 (09:07→20:33)
[2018-01-18] MEDS: CALMOSEPTINE 113 GM OINTMENT TP SCH ×2 (09:07→20:33)
[2018-01-18] MEDS: DOCUSATE SODIUM 100 MG/10 ML LIQUID UDC GT SCH (09:07)
[2018-01-18] MEDS: NUTRISOURCE FIBER 4 GM PACKET GT SCH ×2 (09:07→20:33)
[2018-01-18 20:14] VITALS: BP 131/80
[2018-01-18] MEDS: ATORVASTATIN 10 MG TABLET GT SCH (20:33)
[2018-01-19] MEDS: ALBUTEROL SULFATE 2.5 MG/3 ML NEBU NEB SCH ×6 (03:01→23:20)
[2018-01-19] MEDS: IPRATROPIUM BROMIDE 0.5 MG/2.5 ML NEBU NEB SCH ×6 (03:01→23:20)
[2018-01-19] MEDS: BACLOFEN 10 MG TABLET GT SCH ×3 (05:32→21:58)
[2018-01-19] MEDS: CHOLECALCIFEROL 1,000 UNIT TABLET GT SCH (05:32)
[2018-01-19] MEDS: JEVITY 1.2 1000 ML LIQUID GT PRN (05:33)
[2018-01-19] MEDS: BUDESONIDE 0.5 MG/2 ML NEBU NEB SCH ×2 (08:23→20:44)
[2018-01-19 09:22] VITALS: BP 134/87
[2018-01-19] MEDS: CALCIUM CARBONATE 500 MG TABLET GT SCH ×2 (09:59→21:58)
[2018-01-19] MEDS: HYDROGEN PEROXIDE 3% 118 ML BOTTLE TP SCH ×2 (09:59→21:58)
[2018-01-19] MEDS: CALMOSEPTINE 113 GM OINTMENT TP SCH ×2 (09:59→21:58)
[2018-01-19] MEDS: DOCUSATE SODIUM 100 MG/10 ML LIQUID UDC GT SCH (09:59)
[2018-01-19] MEDS: NUTRISOURCE FIBER 4 GM PACKET GT SCH ×2 (09:59→21:58)
[2018-01-19 20:32] VITALS: BP 137/78
[2018-01-19] MEDS: MULTIVIT, IRON, MIN NO. 8, FA TABLET GT SCH (21:58)
[2018-01-19] MEDS: ATORVASTATIN 10 MG TABLET GT SCH (21:58)
[2018-01-20] MEDS: IPRATROPIUM BROMIDE 0.5 MG/2.5 ML NEBU NEB SCH ×6 (04:29→23:22)
[2018-01-20] MEDS: ALBUTEROL SULFATE 2.5 MG/3 ML NEBU NEB SCH ×6 (04:29→23:22)
[2018-01-20] MEDS: BACLOFEN 10 MG TABLET GT SCH ×3 (06:32→22:00)
[2018-01-20] MEDS: CHOLECALCIFEROL 1,000 UNIT TABLET GT SCH (06:32)
[2018-01-20] MEDS: BUDESONIDE 0.5 MG/2 ML NEBU NEB SCH ×2 (07:42→20:05)
[2018-01-20 08:00] VITALS: BP 140/85
[2018-01-20] MEDS: DOCUSATE SODIUM 100 MG/10 ML LIQUID UDC GT SCH (08:04)
[2018-01-20] MEDS: NUTRISOURCE FIBER 4 GM PACKET GT SCH ×2 (08:04→21:54)
[2018-01-20] MEDS: CALMOSEPTINE 113 GM OINTMENT TP SCH ×2 (08:04→21:55)
[2018-01-20] MEDS: CALCIUM CARBONATE 500 MG TABLET GT SCH ×2 (08:04→21:54)
[2018-01-20] MEDS: HYDROGEN PEROXIDE 3% 118 ML BOTTLE TP SCH ×2 (08:04→21:55)
[2018-01-20 21:13] VITALS: BP 117/68
[2018-01-20] MEDS: ATORVASTATIN 10 MG TABLET GT SCH (21:54)
[2018-01-21] MEDS: ALBUTEROL SULFATE 2.5 MG/3 ML NEBU NEB SCH ×6 (04:04→22:36)
[2018-01-21] MEDS: IPRATROPIUM BROMIDE 0.5 MG/2.5 ML NEBU NEB SCH ×6 (04:04→22:36)
[2018-01-21] MEDS: BACLOFEN 10 MG TABLET GT SCH ×3 (06:32→22:00)
[2018-01-21] MEDS: CHOLECALCIFEROL 1,000 UNIT TABLET GT SCH (06:32)
[2018-01-21] MEDS: BUDESONIDE 0.5 MG/2 ML NEBU NEB SCH ×2 (07:16→19:51)
[2018-01-21 08:00] VITALS: BP 114/72
[2018-01-21] MEDS: DOCUSATE SODIUM 100 MG/10 ML LIQUID UDC GT SCH (08:23)
[2018-01-21] MEDS: NUTRISOURCE FIBER 4 GM PACKET GT SCH ×2 (08:24→21:00)
[2018-01-21] MEDS: CALCIUM CARBONATE 500 MG TABLET GT SCH ×2 (08:24→21:00)
[2018-01-21] MEDS: CALMOSEPTINE 113 GM OINTMENT TP SCH ×2 (08:24→21:00)
[2018-01-21] MEDS: HYDROGEN PEROXIDE 3% 118 ML BOTTLE TP SCH ×2 (08:24→21:00)
[2018-01-21 20:54] VITALS: BP 117/68
[2018-01-21] MEDS: ATORVASTATIN 10 MG TABLET GT SCH (21:00)
[2018-01-21] MEDS: MULTIVIT, IRON, MIN NO. 8, FA TABLET GT SCH (21:00)
[2018-01-22] MEDS: ALBUTEROL SULFATE 2.5 MG/3 ML NEBU NEB SCH ×6 (02:30→22:40)
[2018-01-22] MEDS: IPRATROPIUM BROMIDE 0.5 MG/2.5 ML NEBU NEB SCH ×6 (02:30→22:40)
[2018-01-22] MEDS: BACLOFEN 10 MG TABLET GT SCH ×3 (06:31→21:40)
[2018-01-22] MEDS: CHOLECALCIFEROL 1,000 UNIT TABLET GT SCH (06:31)
[2018-01-22] MEDS: BUDESONIDE 0.5 MG/2 ML NEBU NEB SCH ×2 (07:03→19:32)
[2018-01-22 08:00] VITALS: BP 128/80
[2018-01-22] MEDS: CALCIUM CARBONATE 500 MG TABLET GT SCH ×2 (08:38→20:29)
[2018-01-22] MEDS: CALMOSEPTINE 113 GM OINTMENT TP SCH ×2 (08:38→20:29)
[2018-01-22] MEDS: HYDROGEN PEROXIDE 3% 118 ML BOTTLE TP SCH ×2 (08:38→20:29)
[2018-01-22] MEDS: DOCUSATE SODIUM 100 MG/10 ML LIQUID UDC GT SCH (08:38)
[2018-01-22] MEDS: NUTRISOURCE FIBER 4 GM PACKET GT SCH ×2 (08:38→20:29)
--- NOTE | 2018-01-22 18:04 | NUR ---
seen and examined by Dr Weiner with no new orders.
[2018-01-22] MEDS: ATORVASTATIN 10 MG TABLET GT SCH (20:29)
[2018-01-22 20:53] VITALS: BP 113/64
[2018-01-23] MEDS: ALBUTEROL SULFATE 2.5 MG/3 ML NEBU NEB SCH ×6 (02:30→22:43)
[2018-01-23] MEDS: IPRATROPIUM BROMIDE 0.5 MG/2.5 ML NEBU NEB SCH ×6 (02:30→22:43)
[2018-01-23] MEDS: BACLOFEN 10 MG TABLET GT SCH ×3 (05:27→21:10)
[2018-01-23] MEDS: JEVITY 1.2 1000 ML LIQUID GT PRN (05:27)
[2018-01-23] MEDS: CHOLECALCIFEROL 1,000 UNIT TABLET GT SCH (05:38)
[2018-01-23 08:00] VITALS: BP 107/61
[2018-01-23] MEDS: BUDESONIDE 0.5 MG/2 ML NEBU NEB SCH ×2 (08:05→20:01)
[2018-01-23] MEDS: CALMOSEPTINE 113 GM OINTMENT TP SCH ×2 (09:15→20:46)
[2018-01-23] MEDS: DOCUSATE SODIUM 100 MG/10 ML LIQUID UDC GT SCH (09:15)
[2018-01-23] MEDS: CALCIUM CARBONATE 500 MG TABLET GT SCH ×2 (09:15→20:46)
[2018-01-23] MEDS: NUTRISOURCE FIBER 4 GM PACKET GT SCH ×2 (09:15→20:46)
[2018-01-23] MEDS: HYDROGEN PEROXIDE 3% 118 ML BOTTLE TP SCH ×2 (09:15→20:47)
[2018-01-23 20:29] VITALS: BP 120/81
[2018-01-23] MEDS: MULTIVIT, IRON, MIN NO. 8, FA TABLET GT SCH (20:46)
[2018-01-23] MEDS: ATORVASTATIN 10 MG TABLET GT SCH (21:10)
[2018-01-24] MEDS: IPRATROPIUM BROMIDE 0.5 MG/2.5 ML NEBU NEB SCH ×5 (02:30→20:18)
[2018-01-24] MEDS: ALBUTEROL SULFATE 2.5 MG/3 ML NEBU NEB SCH ×5 (02:30→20:18)
[2018-01-24] MEDS: CHOLECALCIFEROL 1,000 UNIT TABLET GT SCH (05:31)
[2018-01-24] MEDS: JEVITY 1.2 1000 ML LIQUID GT PRN (05:31)
[2018-01-24] MEDS: BACLOFEN 10 MG TABLET GT SCH ×3 (05:31→21:06)
[2018-01-24] MEDS: BUDESONIDE 0.5 MG/2 ML NEBU NEB SCH ×2 (07:06→20:20)
[2018-01-24] MEDS: CALMOSEPTINE 113 GM OINTMENT TP SCH ×2 (08:38→21:06)
[2018-01-24] MEDS: DOCUSATE SODIUM 100 MG/10 ML LIQUID UDC GT SCH (08:38)
[2018-01-24] MEDS: CALCIUM CARBONATE 500 MG TABLET GT SCH ×2 (08:38→21:06)
[2018-01-24] MEDS: NUTRISOURCE FIBER 4 GM PACKET GT SCH ×2 (08:38→21:06)
[2018-01-24] MEDS: HYDROGEN PEROXIDE 3% 118 ML BOTTLE TP SCH ×2 (08:39→21:06)
[2018-01-24 11:40] VITALS: BP 90/52
[2018-01-24 20:00] VITALS: BP 126/71
[2018-01-24] MEDS: ATORVASTATIN 10 MG TABLET GT SCH (21:05)
[2018-01-25] MEDS: IPRATROPIUM BROMIDE 0.5 MG/2.5 ML NEBU NEB SCH ×7 (00:02→22:40)
[2018-01-25] MEDS: ALBUTEROL SULFATE 2.5 MG/3 ML NEBU NEB SCH ×7 (00:02→22:40)
[2018-01-25] MEDS: JEVITY 1.2 1000 ML LIQUID GT PRN (03:04)
[2018-01-25] MEDS: BACLOFEN 10 MG TABLET GT SCH ×3 (05:21→21:03)
[2018-01-25] MEDS: CHOLECALCIFEROL 1,000 UNIT TABLET GT SCH (05:33)
[2018-01-25] MEDS: BUDESONIDE 0.5 MG/2 ML NEBU NEB SCH ×2 (07:00→19:54)
--- NOTE | 2018-01-25 07:48 | NUR ---
SEEN BY HALINA JETER.
[2018-01-25] MEDS: HYDROGEN PEROXIDE 3% 118 ML BOTTLE TP SCH ×2 (08:37→20:55)
[2018-01-25] MEDS: CALCIUM CARBONATE 500 MG TABLET GT SCH ×2 (08:37→20:55)
[2018-01-25] MEDS: DOCUSATE SODIUM 100 MG/10 ML LIQUID UDC GT SCH (08:37)
[2018-01-25] MEDS: NUTRISOURCE FIBER 4 GM PACKET GT SCH ×2 (08:37→20:55)
[2018-01-25] MEDS: CALMOSEPTINE 113 GM OINTMENT TP SCH ×2 (08:37→20:55)
[2018-01-25 11:20] VITALS: BP 90/40
[2018-01-25 20:00] VITALS: BP 127/76
[2018-01-25] MEDS: MULTIVIT, IRON, MIN NO. 8, FA TABLET GT SCH (20:55)
[2018-01-25] MEDS: ATORVASTATIN 10 MG TABLET GT SCH (20:55)
[2018-01-26] MEDS: JEVITY 1.2 1000 ML LIQUID GT PRN (01:40)
[2018-01-26] MEDS: IPRATROPIUM BROMIDE 0.5 MG/2.5 ML NEBU NEB SCH ×6 (03:28→22:40)
[2018-01-26] MEDS: ALBUTEROL SULFATE 2.5 MG/3 ML NEBU NEB SCH ×6 (03:28→22:40)
[2018-01-26] MEDS: BACLOFEN 10 MG TABLET GT SCH ×3 (05:25→21:10)
[2018-01-26] MEDS: CHOLECALCIFEROL 1,000 UNIT TABLET GT SCH (05:37)
[2018-01-26] MEDS: BUDESONIDE 0.5 MG/2 ML NEBU NEB SCH ×2 (07:40→19:30)
[2018-01-26 08:08] VITALS: BP 136/78
[2018-01-26] MEDS: CALMOSEPTINE 113 GM OINTMENT TP SCH ×2 (09:31→21:10)
[2018-01-26] MEDS: HYDROGEN PEROXIDE 3% 118 ML BOTTLE TP SCH ×2 (09:31→21:10)
[2018-01-26] MEDS: DOCUSATE SODIUM 100 MG/10 ML LIQUID UDC GT SCH (09:31)
[2018-01-26] MEDS: CALCIUM CARBONATE 500 MG TABLET GT SCH ×2 (09:31→21:10)
[2018-01-26] MEDS: NUTRISOURCE FIBER 4 GM PACKET GT SCH ×2 (09:31→21:10)
--- NOTE | 2018-01-26 12:09 | NUR ---
SEEN BY DR. JEAN PAUL JETER.
[2018-01-26 20:00] VITALS: BP 99/53
[2018-01-26] MEDS: ATORVASTATIN 10 MG TABLET GT SCH (21:10)
[2018-01-27] MEDS: JEVITY 1.2 1000 ML LIQUID GT PRN (01:30)
[2018-01-27] MEDS: ALBUTEROL SULFATE 2.5 MG/3 ML NEBU NEB SCH ×6 (02:30→22:37)
[2018-01-27] MEDS: IPRATROPIUM BROMIDE 0.5 MG/2.5 ML NEBU NEB SCH ×6 (02:30→22:37)
[2018-01-27] MEDS: BACLOFEN 10 MG TABLET GT SCH ×3 (05:46→21:18)
[2018-01-27] MEDS: CHOLECALCIFEROL 1,000 UNIT TABLET GT SCH (05:46)
[2018-01-27] MEDS: BUDESONIDE 0.5 MG/2 ML NEBU NEB SCH ×2 (07:18→19:44)
[2018-01-27 08:00] VITALS: BP 117/87
[2018-01-27] MEDS: CALMOSEPTINE 113 GM OINTMENT TP SCH ×2 (08:14→21:18)
[2018-01-27] MEDS: NUTRISOURCE FIBER 4 GM PACKET GT SCH ×2 (08:14→21:18)
[2018-01-27] MEDS: HYDROGEN PEROXIDE 3% 118 ML BOTTLE TP SCH ×2 (08:14→21:18)
[2018-01-27] MEDS: DOCUSATE SODIUM 100 MG/10 ML LIQUID UDC GT SCH (08:14)
[2018-01-27] MEDS: CALCIUM CARBONATE 500 MG TABLET GT SCH ×2 (08:14→21:18)
--- NOTE | 2018-01-27 10:35 | NUR ---
SEEN BY HALINA JETER.
[2018-01-27 20:37] VITALS: BP 119/70
[2018-01-27] MEDS: MULTIVIT, IRON, MIN NO. 8, FA TABLET GT SCH (21:18)
[2018-01-27] MEDS: ATORVASTATIN 10 MG TABLET GT SCH (21:18)
[2018-01-28] MEDS: JEVITY 1.2 1000 ML LIQUID GT PRN (02:23)
[2018-01-28] MEDS: ALBUTEROL SULFATE 2.5 MG/3 ML NEBU NEB SCH ×6 (02:59→22:40)
[2018-01-28] MEDS: IPRATROPIUM BROMIDE 0.5 MG/2.5 ML NEBU NEB SCH ×6 (02:59→22:40)
[2018-01-28] MEDS: BACLOFEN 10 MG TABLET GT SCH ×3 (05:26→21:12)
[2018-01-28] MEDS: CHOLECALCIFEROL 1,000 UNIT TABLET GT SCH (06:41)
[2018-01-28] MEDS: BUDESONIDE 0.5 MG/2 ML NEBU NEB SCH ×2 (07:24→19:13)
[2018-01-28 08:00] VITALS: BP 109/62
[2018-01-28] MEDS: CALCIUM CARBONATE 500 MG TABLET GT SCH ×2 (08:52→21:12)
[2018-01-28] MEDS: NUTRISOURCE FIBER 4 GM PACKET GT SCH ×2 (08:52→21:12)
[2018-01-28] MEDS: DOCUSATE SODIUM 100 MG/10 ML LIQUID UDC GT SCH (08:52)
[2018-01-28] MEDS: HYDROGEN PEROXIDE 3% 118 ML BOTTLE TP SCH ×2 (08:52→21:12)
[2018-01-28] MEDS: CALMOSEPTINE 113 GM OINTMENT TP SCH ×2 (08:52→21:12)
--- NOTE | 2018-01-28 16:01 | NUR ---
SEEN BY GARETH JETER.
[2018-01-28] MEDS: ATORVASTATIN 10 MG TABLET GT SCH (21:12)
[2018-01-28 21:15] VITALS: BP 119/68
[2018-01-29] MEDS: BISACODYL 10 MG SUPP.RECT RC PRN (02:21)
[2018-01-29] MEDS: ALBUTEROL SULFATE 2.5 MG/3 ML NEBU NEB SCH ×6 (03:05→22:40)
[2018-01-29] MEDS: IPRATROPIUM BROMIDE 0.5 MG/2.5 ML NEBU NEB SCH ×6 (03:05→22:40)
[2018-01-29] MEDS: CHOLECALCIFEROL 1,000 UNIT TABLET GT SCH (06:41)
[2018-01-29] MEDS: BACLOFEN 10 MG TABLET GT SCH ×3 (06:41→22:16)
[2018-01-29] MEDS: BUDESONIDE 0.5 MG/2 ML NEBU NEB SCH ×2 (07:11→19:29)
[2018-01-29 08:00] VITALS: BP 100/62
[2018-01-29] MEDS: NUTRISOURCE FIBER 4 GM PACKET GT SCH ×2 (08:43→21:00)
[2018-01-29] MEDS: HYDROGEN PEROXIDE 3% 118 ML BOTTLE TP SCH ×2 (08:43→21:00)
[2018-01-29] MEDS: DOCUSATE SODIUM 100 MG/10 ML LIQUID UDC GT SCH (08:43)
[2018-01-29] MEDS: CALCIUM CARBONATE 500 MG TABLET GT SCH ×2 (08:43→21:00)
[2018-01-29] MEDS: CALMOSEPTINE 113 GM OINTMENT TP SCH ×2 (08:43→21:00)
--- NOTE | 2018-01-29 14:09 | NUR ---
Seen and examined by Alejandro Shea,no new orders.
[2018-01-29] MEDS: MULTIVIT, IRON, MIN NO. 8, FA TABLET GT SCH (21:00)
[2018-01-29] MEDS: ATORVASTATIN 10 MG TABLET GT SCH (21:00)
[2018-01-30] MEDS: IPRATROPIUM BROMIDE 0.5 MG/2.5 ML NEBU NEB SCH ×6 (02:30→22:36)
[2018-01-30] MEDS: ALBUTEROL SULFATE 2.5 MG/3 ML NEBU NEB SCH ×6 (02:30→22:36)
[2018-01-30 03:05] VITALS: BP 105/64
[2018-01-30] MEDS: JEVITY 1.2 1000 ML LIQUID GT PRN (04:20)
[2018-01-30] MEDS: BACLOFEN 10 MG TABLET GT SCH ×3 (05:41→21:30)
[2018-01-30] MEDS: CHOLECALCIFEROL 1,000 UNIT TABLET GT SCH (05:41)
[2018-01-30] MEDS: BUDESONIDE 0.5 MG/2 ML NEBU NEB SCH ×2 (07:12→19:19)
[2018-01-30 08:06] VITALS: BP 110/76
[2018-01-30] MEDS: CALCIUM CARBONATE 500 MG TABLET GT SCH ×2 (09:53→21:30)
[2018-01-30] MEDS: DOCUSATE SODIUM 100 MG/10 ML LIQUID UDC GT SCH (09:53)
[2018-01-30] MEDS: NUTRISOURCE FIBER 4 GM PACKET GT SCH ×2 (09:53→21:30)
[2018-01-30] MEDS: CALMOSEPTINE 113 GM OINTMENT TP SCH ×2 (09:54→21:30)
[2018-01-30] MEDS: HYDROGEN PEROXIDE 3% 118 ML BOTTLE TP SCH ×2 (09:54→21:30)
[2018-01-30 20:00] VITALS: BP 124/83
[2018-01-30] MEDS: ATORVASTATIN 10 MG TABLET GT SCH (21:30)
[2018-01-31] MEDS: ALBUTEROL SULFATE 2.5 MG/3 ML NEBU NEB SCH ×6 (02:31→22:39)
[2018-01-31] MEDS: IPRATROPIUM BROMIDE 0.5 MG/2.5 ML NEBU NEB SCH ×6 (02:31→22:39)
[2018-01-31] MEDS: CHOLECALCIFEROL 1,000 UNIT TABLET GT SCH (05:54)
[2018-01-31] MEDS: BACLOFEN 10 MG TABLET GT SCH ×3 (05:54→21:33)
[2018-01-31] MEDS: JEVITY 1.2 1000 ML LIQUID GT PRN (06:11)
[2018-01-31] MEDS: BUDESONIDE 0.5 MG/2 ML NEBU NEB SCH ×2 (07:50→20:16)
[2018-01-31 08:00] VITALS: BP 126/74
[2018-01-31] MEDS: HYDROGEN PEROXIDE 3% 118 ML BOTTLE TP SCH ×2 (08:39→21:33)
[2018-01-31] MEDS: DOCUSATE SODIUM 100 MG/10 ML LIQUID UDC GT SCH (08:39)
[2018-01-31] MEDS: CALMOSEPTINE 113 GM OINTMENT TP SCH ×2 (08:39→21:32)
[2018-01-31] MEDS: CALCIUM CARBONATE 500 MG TABLET GT SCH ×2 (08:39→21:31)
[2018-01-31] MEDS: NUTRISOURCE FIBER 4 GM PACKET GT SCH ×2 (08:39→21:30)
[2018-01-31 20:00] VITALS: BP 114/74
[2018-01-31] MEDS: ATORVASTATIN 10 MG TABLET GT SCH (21:30)
[2018-01-31] MEDS: MULTIVIT, IRON, MIN NO. 8, FA TABLET GT SCH (21:32)
[2018-02-01] MEDS: IPRATROPIUM BROMIDE 0.5 MG/2.5 ML NEBU NEB SCH ×6 (02:59→23:11)
[2018-02-01] MEDS: ALBUTEROL SULFATE 2.5 MG/3 ML NEBU NEB SCH ×6 (02:59→23:11)
[2018-02-01] MEDS: CHOLECALCIFEROL 1,000 UNIT TABLET GT SCH (05:54)
[2018-02-01] MEDS: JEVITY 1.2 1000 ML LIQUID GT PRN (05:54)
[2018-02-01] MEDS: BACLOFEN 10 MG TABLET GT SCH ×3 (05:54→22:04)
[2018-02-01] MEDS: BUDESONIDE 0.5 MG/2 ML NEBU NEB SCH ×2 (07:50→20:17)
[2018-02-01 08:00] VITALS: BP 109/74
[2018-02-01] MEDS: HYDROGEN PEROXIDE 3% 118 ML BOTTLE TP SCH ×2 (08:17→21:58)
[2018-02-01] MEDS: CALCIUM CARBONATE 500 MG TABLET GT SCH ×2 (08:17→21:58)
[2018-02-01] MEDS: NUTRISOURCE FIBER 4 GM PACKET GT SCH ×2 (08:17→21:58)
[2018-02-01] MEDS: DOCUSATE SODIUM 100 MG/10 ML LIQUID UDC GT SCH (08:17)
[2018-02-01] MEDS: CALMOSEPTINE 113 GM OINTMENT TP SCH ×2 (08:17→21:58)
[2018-02-01 20:39] VITALS: BP 133/81
[2018-02-01] MEDS: ATORVASTATIN 10 MG TABLET GT SCH (21:58)
[2018-02-02] MEDS: IPRATROPIUM BROMIDE 0.5 MG/2.5 ML NEBU NEB SCH ×6 (03:39→23:15)
[2018-02-02] MEDS: ALBUTEROL SULFATE 2.5 MG/3 ML NEBU NEB SCH ×6 (03:39→23:15)
[2018-02-02] MEDS: BACLOFEN 10 MG TABLET GT SCH ×3 (06:52→21:30)
[2018-02-02] MEDS: CHOLECALCIFEROL 1,000 UNIT TABLET GT SCH (06:52)
[2018-02-02] MEDS: BUDESONIDE 0.5 MG/2 ML NEBU NEB SCH ×2 (06:55→20:22)
[2018-02-02] MEDS: JEVITY 1.2 1000 ML LIQUID GT PRN (07:00)
[2018-02-02 08:07] VITALS: BP 126/93
[2018-02-02] MEDS: CALMOSEPTINE 113 GM OINTMENT TP SCH ×2 (09:21→21:30)
[2018-02-02] MEDS: DOCUSATE SODIUM 100 MG/10 ML LIQUID UDC GT SCH (09:21)
[2018-02-02] MEDS: CALCIUM CARBONATE 500 MG TABLET GT SCH ×2 (09:21→21:30)
[2018-02-02] MEDS: NUTRISOURCE FIBER 4 GM PACKET GT SCH ×2 (09:21→21:30)
[2018-02-02] MEDS: HYDROGEN PEROXIDE 3% 118 ML BOTTLE TP SCH ×2 (09:22→21:30)
[2018-02-02 20:36] VITALS: BP 141/75
[2018-02-02] MEDS: ATORVASTATIN 10 MG TABLET GT SCH (21:30)
[2018-02-02] MEDS: MULTIVIT, IRON, MIN NO. 8, FA TABLET GT SCH (21:30)
[2018-02-03] MEDS: IPRATROPIUM BROMIDE 0.5 MG/2.5 ML NEBU NEB SCH ×6 (03:35→23:59)
[2018-02-03] MEDS: ALBUTEROL SULFATE 2.5 MG/3 ML NEBU NEB SCH ×6 (03:35→23:59)
[2018-02-03] MEDS: BACLOFEN 10 MG TABLET GT SCH ×3 (06:02→22:22)
[2018-02-03] MEDS: CHOLECALCIFEROL 1,000 UNIT TABLET GT SCH (06:02)
[2018-02-03] MEDS: BUDESONIDE 0.5 MG/2 ML NEBU NEB SCH ×2 (07:08→20:40)
[2018-02-03 08:07] VITALS: BP 119/83
[2018-02-03] MEDS: DOCUSATE SODIUM 100 MG/10 ML LIQUID UDC GT SCH (08:41)
[2018-02-03] MEDS: NUTRISOURCE FIBER 4 GM PACKET GT SCH ×2 (08:41→21:00)
[2018-02-03] MEDS: CALCIUM CARBONATE 500 MG TABLET GT SCH ×2 (08:42→21:00)
[2018-02-03] MEDS: CALMOSEPTINE 113 GM OINTMENT TP SCH ×2 (08:42→21:00)
[2018-02-03] MEDS: HYDROGEN PEROXIDE 3% 118 ML BOTTLE TP SCH ×2 (08:42→21:00)
[2018-02-03] MEDS: JEVITY 1.2 1000 ML LIQUID GT PRN (17:06)
[2018-02-03 20:25] VITALS: BP 119/68
[2018-02-03] MEDS: ATORVASTATIN 10 MG TABLET GT SCH (21:00)
[2018-02-04] MEDS: ALBUTEROL SULFATE 2.5 MG/3 ML NEBU NEB SCH ×6 (04:14→22:35)
[2018-02-04] MEDS: IPRATROPIUM BROMIDE 0.5 MG/2.5 ML NEBU NEB SCH ×6 (04:14→22:35)
[2018-02-04] MEDS: CHOLECALCIFEROL 1,000 UNIT TABLET GT SCH (06:37)
[2018-02-04] MEDS: BACLOFEN 10 MG TABLET GT SCH ×3 (06:37→21:47)
[2018-02-04] MEDS: BUDESONIDE 0.5 MG/2 ML NEBU NEB SCH ×2 (07:04→19:42)
[2018-02-04 08:03] VITALS: BP 121/81
[2018-02-04] MEDS: DOCUSATE SODIUM 100 MG/10 ML LIQUID UDC GT SCH (08:31)
[2018-02-04] MEDS: NUTRISOURCE FIBER 4 GM PACKET GT SCH ×2 (08:31→21:47)
[2018-02-04] MEDS: CALCIUM CARBONATE 500 MG TABLET GT SCH ×2 (08:31→21:47)
[2018-02-04] MEDS: HYDROGEN PEROXIDE 3% 118 ML BOTTLE TP SCH ×2 (08:31→21:47)
[2018-02-04] MEDS: CALMOSEPTINE 113 GM OINTMENT TP SCH ×2 (08:31→21:47)
[2018-02-04] MEDS: JEVITY 1.2 1000 ML LIQUID GT PRN (11:14)
[2018-02-04 21:46] VITALS: BP 112/73
[2018-02-04] MEDS: MULTIVIT, IRON, MIN NO. 8, FA TABLET GT SCH (21:47)
[2018-02-04] MEDS: ATORVASTATIN 10 MG TABLET GT SCH (21:47)
[2018-02-05] MEDS: IPRATROPIUM BROMIDE 0.5 MG/2.5 ML NEBU NEB SCH ×6 (02:38→22:40)
[2018-02-05] MEDS: ALBUTEROL SULFATE 2.5 MG/3 ML NEBU NEB SCH ×6 (02:38→22:40)
[2018-02-05] MEDS: BACLOFEN 10 MG TABLET GT SCH ×3 (05:57→21:42)
[2018-02-05] MEDS: CHOLECALCIFEROL 1,000 UNIT TABLET GT SCH (05:57)
[2018-02-05] MEDS: BUDESONIDE 0.5 MG/2 ML NEBU NEB SCH ×2 (08:03→19:23)
[2018-02-05 08:09] VITALS: BP 131/80
[2018-02-05] MEDS: NUTRISOURCE FIBER 4 GM PACKET GT SCH ×2 (09:11→21:41)
[2018-02-05] MEDS: DOCUSATE SODIUM 100 MG/10 ML LIQUID UDC GT SCH (09:11)
[2018-02-05] MEDS: CALCIUM CARBONATE 500 MG TABLET GT SCH ×2 (09:12→21:42)
[2018-02-05] MEDS: CALMOSEPTINE 113 GM OINTMENT TP SCH ×2 (09:12→21:42)
[2018-02-05] MEDS: HYDROGEN PEROXIDE 3% 118 ML BOTTLE TP SCH ×2 (09:12→21:42)
[2018-02-05] MEDS: JEVITY 1.2 1000 ML LIQUID GT PRN (14:34)
--- NOTE | 2018-02-05 14:37 | NUR ---
Pharmacy Update from Today's 02/05/18 IDT Meeting: VS: Temp 97.8 BP 100/62 HR 74 LABS: (from 02/20/17, no new) Wbc 5.4H/H 13.5/40.8Plt 139 Na 141K 3.5Cl 104CO2 31BUN/SCr 12/0.7 BS 127 MEDICATION USE REVIEWED: > Pt not on any anti-psych or anti-seizure medications > PRN MED USAGE: (December) Tylenol for pain used x 0 Tylenol for temp used x 0 Bisacodyl PRN x0 NEW ORDERS NOTED: > NA Pt was reviewed and discussed in depth, no medication concerns or issues reported at this time, Rx rec for routine annual labs, deferred to primary Md, rope tow operator to f/u with order. Will follow
--- NOTE | 2018-02-05 16:25 | NUR ---
INTERDISCIPLINARY PLAN OF CARE CONFERENCE was held today. Patient's family was invited to the meeting, but they were unable to attend due to living [id number]. Dr. Underwood and the Interdisciplinary Team reviewed the current plan of care in detail. RN reported on patient's current medical condition. See RN IDT conference notes. No major changes were reported. See also all other disciplines IDT notes and physician's progress notes for additional details.
[2018-02-05 20:33] VITALS: BP 115/69
[2018-02-05] MEDS: ATORVASTATIN 10 MG TABLET GT SCH (21:41)
[2018-02-06] MEDS: ALBUTEROL SULFATE 2.5 MG/3 ML NEBU NEB SCH ×5 (02:31→20:13)
[2018-02-06] MEDS: IPRATROPIUM BROMIDE 0.5 MG/2.5 ML NEBU NEB SCH ×5 (02:31→20:13)
[2018-02-06] MEDS: BACLOFEN 10 MG TABLET GT SCH ×3 (06:02→21:22)
[2018-02-06] MEDS: CHOLECALCIFEROL 1,000 UNIT TABLET GT SCH (06:02)
[2018-02-06] MEDS: BUDESONIDE 0.5 MG/2 ML NEBU NEB SCH ×2 (06:55→20:23)
[2018-02-06 07:29] LABS: BASOPHILS % (AUTO) 0.7 % (0.0-2.0); EOSINOPHILS # (AUTO) 0.2 K/uL (0.0-0.7); EOSINOPHILS % (AUTO) 5.3 % (0.0-7.0); HEMATOCRIT 39.6 % (31.2-41.9); HEMOGLOBIN 13.8 g/dL (10.9-14.3); LYMPHOCYTES # (AUTO) 1.6 K/uL (20.0-40.0); MEAN CORPUSCULAR HEMOGLOBIN 33.2 uug (24.7-32.8); MEAN CORPUSCULAR HGB CONC 35 g/dL (32.3-35.6); MEAN CORPUSCULAR VOLUME 95.2 fL (75.5-95.3); MONOCYTES # (AUTO) 0.5 K/uL (2.0-10.0); MONOCYTES % (AUTO) 11.4 % (0.0-11.0); NEUTROPHILS % (AUTO) 46.6 % (38.5-71.5); PLATELET COUNT (AUTO) 147 K/uL (179-408); RED BLOOD CELL COUNT(AUTO) 4.16 MIL/uL (3.63-4.92); WHITE BLOOD COUNT (AUTO) 4.3 K/uL (3.8-11.8)
[2018-02-06 08:00] VITALS: BP 123/65
[2018-02-06 08:07] LABS: THYROID STIMULATING HORMONE 2.775 mIU/mL (0.358-3.740)
--- NOTE | 2018-02-06 08:36 | NUR ---
SEEN BY HALINA JETER.
[2018-02-06 08:48] LABS: BILIRUBIN,TOTAL 0.3 mg/dL (0.2-1.0); CREATININE 0.7 mg/dL (0.6-1.3); POTASSIUM 4.4 mmol/L (3.5-5.1); TOTAL PROTEIN, SERUM 6.9 g/dL (6.4-8.2); URIC ACID 3.4 mg/dL (2.6-6.0)
[2018-02-06] MEDS: DOCUSATE SODIUM 100 MG/10 ML LIQUID UDC GT SCH (09:30)
[2018-02-06] MEDS: CALCIUM CARBONATE 500 MG TABLET GT SCH ×2 (09:30→21:22)
[2018-02-06] MEDS: NUTRISOURCE FIBER 4 GM PACKET GT SCH ×2 (09:30→21:22)
[2018-02-06] MEDS: CALMOSEPTINE 113 GM OINTMENT TP SCH ×2 (09:31→21:22)
[2018-02-06] MEDS: HYDROGEN PEROXIDE 3% 118 ML BOTTLE TP SCH ×2 (09:31→21:22)
[2018-02-06] MEDS: JEVITY 1.2 1000 ML LIQUID GT PRN (14:31)
[2018-02-06 15:14] LABS: *BILIRUBIN,URIN NEGATIVE (NEGATIVE); *BLOOD, URINE NEGATIVE (NEGATIVE); *CLARITY,URINE SLIGHTLY CLOUDY (CLEAR); *COLOR,URINE YELLOW (YELLOW); *KETONES,URINE NEGATIVE (NEGATIVE); *UROBILINOGEN,URINE 0.2 E.U./dl (NORMAL); LEUKOCYTE ESTERASE ,URINE 1+ (NEGATIVE); NITRITE, URINE NEGATIVE (NEGATIVE); PH,URINE 8.5 (5.0-8.0); UGLUCOSE NEGATIVE (NEGATIVE)
[2018-02-06 15:52] LABS: BACTERIA,URINE FEW /HPF (NONE SEEN); RBC,URINE 0-3 /HPF (0-3); SQUAMOUS EPITHELIAL CELL,UR FEW /HPF (NONE SEEN); URINE AMORPHOUS PHOSPHATES MODERATE /HPF
--- NOTE | 2018-02-06 15:57 | NUR ---
CALL DR REAVES FOR ABNORMAL LABS RESULTS,SPOKE TO CARMINE.HE WILL CALL BACK.
--- NOTE | 2018-02-06 17:00 | NUR ---
DR REAVES CALL BACK AWARE OF THE ABNORMAL LABS RESULT ,NO NEW ORDERS.
[2018-02-06] MEDS: ATORVASTATIN 10 MG TABLET GT SCH (21:21)
[2018-02-06] MEDS: MULTIVIT, IRON, MIN NO. 8, FA TABLET GT SCH (21:22)
[2018-02-06 22:00] VITALS: BP 116/77
[2018-02-07] MEDS: ALBUTEROL SULFATE 2.5 MG/3 ML NEBU NEB SCH ×6 (00:12→20:34)
[2018-02-07] MEDS: IPRATROPIUM BROMIDE 0.5 MG/2.5 ML NEBU NEB SCH ×6 (00:12→20:34)
[2018-02-07] MEDS: BACLOFEN 10 MG TABLET GT SCH ×3 (06:00→21:01)
[2018-02-07] MEDS: CHOLECALCIFEROL 1,000 UNIT TABLET GT SCH (06:00)
[2018-02-07] MEDS: BUDESONIDE 0.5 MG/2 ML NEBU NEB SCH ×2 (07:11→20:49)
[2018-02-07 08:07] VITALS: BP 128/80
[2018-02-07] MEDS: HYDROGEN PEROXIDE 3% 118 ML BOTTLE TP SCH ×2 (09:15→20:58)
[2018-02-07] MEDS: NUTRISOURCE FIBER 4 GM PACKET GT SCH ×2 (09:15→20:58)
[2018-02-07] MEDS: CALCIUM CARBONATE 500 MG TABLET GT SCH ×2 (09:15→20:58)
[2018-02-07] MEDS: CALMOSEPTINE 113 GM OINTMENT TP SCH ×2 (09:15→20:58)
[2018-02-07] MEDS: DOCUSATE SODIUM 100 MG/10 ML LIQUID UDC GT SCH (09:15)
[2018-02-07 20:00] VITALS: BP 112/70
[2018-02-07] MEDS: ATORVASTATIN 10 MG TABLET GT SCH (20:58)
[2018-02-08] MEDS: IPRATROPIUM BROMIDE 0.5 MG/2.5 ML NEBU NEB SCH ×7 (00:12→22:37)
[2018-02-08] MEDS: ALBUTEROL SULFATE 2.5 MG/3 ML NEBU NEB SCH ×7 (00:12→22:37)
[2018-02-08] MEDS: CHOLECALCIFEROL 1,000 UNIT TABLET GT SCH (05:38)
[2018-02-08] MEDS: BACLOFEN 10 MG TABLET GT SCH ×2 (05:38→21:02)
[2018-02-08] MEDS: BUDESONIDE 0.5 MG/2 ML NEBU NEB SCH ×2 (07:24→19:52)
[2018-02-08 08:05] VITALS: BP 135/96
[2018-02-08] MEDS: CALMOSEPTINE 113 GM OINTMENT TP SCH ×2 (08:41→21:02)
[2018-02-08] MEDS: HYDROGEN PEROXIDE 3% 118 ML BOTTLE TP SCH ×2 (08:41→21:02)
[2018-02-08] MEDS: NUTRISOURCE FIBER 4 GM PACKET GT SCH ×2 (08:41→21:02)
[2018-02-08] MEDS: DOCUSATE SODIUM 100 MG/10 ML LIQUID UDC GT SCH (08:41)
[2018-02-08] MEDS: CALCIUM CARBONATE 500 MG TABLET GT SCH ×2 (08:41→21:02)
--- NOTE | 2018-02-08 10:34 | NUR ---
SEEN BY HALINA JETER.
[2018-02-08] MEDS: JEVITY 1.2 1000 ML LIQUID GT PRN (12:45)
[2018-02-08 20:25] VITALS: BP 121/82
[2018-02-08] MEDS: ATORVASTATIN 10 MG TABLET GT SCH (21:01)
[2018-02-08] MEDS: MULTIVIT, IRON, MIN NO. 8, FA TABLET GT SCH (21:02)
[2018-02-09] MEDS: IPRATROPIUM BROMIDE 0.5 MG/2.5 ML NEBU NEB SCH ×6 (02:30→23:06)
[2018-02-09] MEDS: ALBUTEROL SULFATE 2.5 MG/3 ML NEBU NEB SCH ×6 (02:30→23:06)
[2018-02-09] MEDS: CHOLECALCIFEROL 1,000 UNIT TABLET GT SCH (05:34)
[2018-02-09] MEDS: BACLOFEN 10 MG TABLET GT SCH ×3 (05:34→21:39)
[2018-02-09] MEDS: BUDESONIDE 0.5 MG/2 ML NEBU NEB SCH ×2 (06:59→19:44)
[2018-02-09 08:08] VITALS: BP 101/71
[2018-02-09] MEDS: NUTRISOURCE FIBER 4 GM PACKET GT SCH ×2 (09:25→20:49)
[2018-02-09] MEDS: DOCUSATE SODIUM 100 MG/10 ML LIQUID UDC GT SCH (09:25)
[2018-02-09] MEDS: CALCIUM CARBONATE 500 MG TABLET GT SCH ×2 (09:25→20:49)
[2018-02-09] MEDS: CALMOSEPTINE 113 GM OINTMENT TP SCH ×2 (09:25→20:49)
[2018-02-09] MEDS: HYDROGEN PEROXIDE 3% 118 ML BOTTLE TP SCH ×2 (09:25→20:49)
[2018-02-09] MEDS: JEVITY 1.2 1000 ML LIQUID GT PRN (11:00)
[2018-02-09 20:14] VITALS: BP 130/87
[2018-02-09] MEDS: ATORVASTATIN 10 MG TABLET GT SCH (20:49)
[2018-02-10] MEDS: IPRATROPIUM BROMIDE 0.5 MG/2.5 ML NEBU NEB SCH ×6 (03:06→22:58)
[2018-02-10] MEDS: ALBUTEROL SULFATE 2.5 MG/3 ML NEBU NEB SCH ×6 (03:06→22:58)
[2018-02-10] MEDS: BACLOFEN 10 MG TABLET GT SCH ×3 (05:44→21:54)
[2018-02-10] MEDS: CHOLECALCIFEROL 1,000 UNIT TABLET GT SCH (05:44)
[2018-02-10] MEDS: BUDESONIDE 0.5 MG/2 ML NEBU NEB SCH ×2 (07:41→19:08)
[2018-02-10 08:07] VITALS: BP 140/86
[2018-02-10] MEDS: DOCUSATE SODIUM 100 MG/10 ML LIQUID UDC GT SCH (08:14)
[2018-02-10] MEDS: NUTRISOURCE FIBER 4 GM PACKET GT SCH ×2 (08:14→21:54)
[2018-02-10] MEDS: CALCIUM CARBONATE 500 MG TABLET GT SCH ×2 (08:15→21:54)
[2018-02-10] MEDS: HYDROGEN PEROXIDE 3% 118 ML BOTTLE TP SCH ×2 (08:15→21:54)
[2018-02-10] MEDS: CALMOSEPTINE 113 GM OINTMENT TP SCH ×2 (08:15→21:54)
[2018-02-10] MEDS: JEVITY 1.2 1000 ML LIQUID GT PRN (14:00)
[2018-02-10 21:05] VITALS: BP 158/69
[2018-02-10] MEDS: MULTIVIT, IRON, MIN NO. 8, FA TABLET GT SCH (21:54)
[2018-02-10] MEDS: ATORVASTATIN 10 MG TABLET GT SCH (21:54)
[2018-02-11] MEDS: IPRATROPIUM BROMIDE 0.5 MG/2.5 ML NEBU NEB SCH ×6 (03:01→22:38)
[2018-02-11] MEDS: ALBUTEROL SULFATE 2.5 MG/3 ML NEBU NEB SCH ×6 (03:01→22:38)
[2018-02-11] MEDS: BACLOFEN 10 MG TABLET GT SCH ×3 (05:32→21:49)
[2018-02-11] MEDS: CHOLECALCIFEROL 1,000 UNIT TABLET GT SCH (05:32)
[2018-02-11] MEDS: BUDESONIDE 0.5 MG/2 ML NEBU NEB SCH ×2 (07:03→19:41)
[2018-02-11 08:00] VITALS: BP 135/83
[2018-02-11] MEDS: NUTRISOURCE FIBER 4 GM PACKET GT SCH ×2 (08:17→21:49)
[2018-02-11] MEDS: CALCIUM CARBONATE 500 MG TABLET GT SCH ×2 (08:17→21:49)
[2018-02-11] MEDS: HYDROGEN PEROXIDE 3% 118 ML BOTTLE TP SCH ×2 (08:17→21:49)
[2018-02-11] MEDS: DOCUSATE SODIUM 100 MG/10 ML LIQUID UDC GT SCH (08:17)
[2018-02-11] MEDS: CALMOSEPTINE 113 GM OINTMENT TP SCH ×2 (08:17→21:49)
[2018-02-11 20:26] VITALS: BP 134/70
[2018-02-11] MEDS: ATORVASTATIN 10 MG TABLET GT SCH (21:49)
[2018-02-12] MEDS: IPRATROPIUM BROMIDE 0.5 MG/2.5 ML NEBU NEB SCH ×6 (03:40→22:40)
[2018-02-12] MEDS: ALBUTEROL SULFATE 2.5 MG/3 ML NEBU NEB SCH ×6 (03:40→22:40)
[2018-02-12] MEDS: BACLOFEN 10 MG TABLET GT SCH ×3 (05:47→22:29)
[2018-02-12] MEDS: CHOLECALCIFEROL 1,000 UNIT TABLET GT SCH (05:47)
[2018-02-12] MEDS: BUDESONIDE 0.5 MG/2 ML NEBU NEB SCH ×2 (07:01→19:23)
[2018-02-12 08:00] VITALS: BP 125/69
[2018-02-12] MEDS: HYDROGEN PEROXIDE 3% 118 ML BOTTLE TP SCH ×2 (09:32→20:55)
[2018-02-12] MEDS: DOCUSATE SODIUM 100 MG/10 ML LIQUID UDC GT SCH (09:32)
[2018-02-12] MEDS: NUTRISOURCE FIBER 4 GM PACKET GT SCH ×2 (09:32→20:55)
[2018-02-12] MEDS: CALMOSEPTINE 113 GM OINTMENT TP SCH ×2 (09:32→20:55)
[2018-02-12] MEDS: CALCIUM CARBONATE 500 MG TABLET GT SCH ×2 (09:32→20:55)
[2018-02-12 20:00] VITALS: BP 115/73
[2018-02-12] MEDS: ATORVASTATIN 10 MG TABLET GT SCH (20:55)
[2018-02-12] MEDS: MULTIVIT, IRON, MIN NO. 8, FA TABLET GT SCH (20:58)
[2018-02-13] MEDS: IPRATROPIUM BROMIDE 0.5 MG/2.5 ML NEBU NEB SCH ×6 (02:30→22:40)
[2018-02-13] MEDS: ALBUTEROL SULFATE 2.5 MG/3 ML NEBU NEB SCH ×6 (02:30→22:40)
[2018-02-13] MEDS: CHOLECALCIFEROL 1,000 UNIT TABLET GT SCH (05:42)
[2018-02-13] MEDS: BACLOFEN 10 MG TABLET GT SCH ×3 (05:42→21:05)
[2018-02-13] MEDS: BUDESONIDE 0.5 MG/2 ML NEBU NEB SCH ×2 (07:07→19:44)
[2018-02-13 08:00] VITALS: BP 145/67
[2018-02-13] MEDS: CALCIUM CARBONATE 500 MG TABLET GT SCH ×2 (08:57→21:03)
[2018-02-13] MEDS: NUTRISOURCE FIBER 4 GM PACKET GT SCH ×2 (08:57→21:03)
[2018-02-13] MEDS: CALMOSEPTINE 113 GM OINTMENT TP SCH ×2 (08:57→21:03)
[2018-02-13] MEDS: DOCUSATE SODIUM 100 MG/10 ML LIQUID UDC GT SCH (08:57)
[2018-02-13] MEDS: HYDROGEN PEROXIDE 3% 118 ML BOTTLE TP SCH ×2 (08:57→21:03)
--- NOTE | 2018-02-13 09:00 | NUR ---
SEEN BY ÁNGEL JESUS,NO NEW ORDERS.
--- NOTE | 2018-02-13 13:30 | NUR ---
SEEN BY GARETH JETER.
[2018-02-13] MEDS: JEVITY 1.2 1000 ML LIQUID GT PRN (14:57)
[2018-02-13 20:00] VITALS: BP 137/87
[2018-02-13] MEDS: ATORVASTATIN 10 MG TABLET GT SCH (21:03)
[2018-02-14] MEDS: IPRATROPIUM BROMIDE 0.5 MG/2.5 ML NEBU NEB SCH ×6 (02:30→22:38)
[2018-02-14] MEDS: ALBUTEROL SULFATE 2.5 MG/3 ML NEBU NEB SCH ×6 (02:30→22:38)
[2018-02-14] MEDS: BACLOFEN 10 MG TABLET GT SCH ×3 (05:33→21:23)
[2018-02-14] MEDS: CHOLECALCIFEROL 1,000 UNIT TABLET GT SCH (05:33)
[2018-02-14] MEDS: BUDESONIDE 0.5 MG/2 ML NEBU NEB SCH ×2 (07:21→20:20)
[2018-02-14 08:00] VITALS: BP 130/86
[2018-02-14] MEDS: CALCIUM CARBONATE 500 MG TABLET GT SCH ×2 (08:22→21:22)
[2018-02-14] MEDS: HYDROGEN PEROXIDE 3% 118 ML BOTTLE TP SCH ×2 (08:22→21:23)
[2018-02-14] MEDS: DOCUSATE SODIUM 100 MG/10 ML LIQUID UDC GT SCH (08:22)
[2018-02-14] MEDS: NUTRISOURCE FIBER 4 GM PACKET GT SCH ×2 (08:22→21:22)
[2018-02-14] MEDS: CALMOSEPTINE 113 GM OINTMENT TP SCH ×2 (08:22→21:23)
[2018-02-14 20:00] VITALS: BP 105/72
[2018-02-14] MEDS: ATORVASTATIN 10 MG TABLET GT SCH (21:22)
[2018-02-14] MEDS: MULTIVIT, IRON, MIN NO. 8, FA TABLET GT SCH (21:23)
[2018-02-15] MEDS: IPRATROPIUM BROMIDE 0.5 MG/2.5 ML NEBU NEB SCH ×6 (02:55→23:48)
[2018-02-15] MEDS: ALBUTEROL SULFATE 2.5 MG/3 ML NEBU NEB SCH ×6 (02:55→23:48)
[2018-02-15] MEDS: CHOLECALCIFEROL 1,000 UNIT TABLET GT SCH (05:55)
[2018-02-15] MEDS: BACLOFEN 10 MG TABLET GT SCH ×3 (05:55→21:24)
[2018-02-15] MEDS: JEVITY 1.2 1000 ML LIQUID GT PRN (06:00)
[2018-02-15] MEDS: BUDESONIDE 0.5 MG/2 ML NEBU NEB SCH ×2 (07:08→20:16)
[2018-02-15 08:05] VITALS: BP 123/94
[2018-02-15] MEDS: HYDROGEN PEROXIDE 3% 118 ML BOTTLE TP SCH ×2 (08:18→20:14)
[2018-02-15] MEDS: NUTRISOURCE FIBER 4 GM PACKET GT SCH ×2 (08:18→20:12)
[2018-02-15] MEDS: CALMOSEPTINE 113 GM OINTMENT TP SCH ×2 (08:18→20:14)
[2018-02-15] MEDS: DOCUSATE SODIUM 100 MG/10 ML LIQUID UDC GT SCH (08:18)
[2018-02-15] MEDS: CALCIUM CARBONATE 500 MG TABLET GT SCH ×2 (08:18→20:12)
[2018-02-15] MEDS: ATORVASTATIN 10 MG TABLET GT SCH (20:12)
[2018-02-15 20:31] VITALS: BP 136/80
[2018-02-16] MEDS: ALBUTEROL SULFATE 2.5 MG/3 ML NEBU NEB SCH ×6 (03:51→23:53)
[2018-02-16] MEDS: IPRATROPIUM BROMIDE 0.5 MG/2.5 ML NEBU NEB SCH ×6 (03:51→23:53)
[2018-02-16] MEDS: BACLOFEN 10 MG TABLET GT SCH ×3 (05:36→22:26)
[2018-02-16] MEDS: CHOLECALCIFEROL 1,000 UNIT TABLET GT SCH (05:36)
[2018-02-16] MEDS: BUDESONIDE 0.5 MG/2 ML NEBU NEB SCH ×2 (08:09→20:28)
[2018-02-16] MEDS: CALCIUM CARBONATE 500 MG TABLET GT SCH ×2 (09:00→20:22)
[2018-02-16] MEDS: HYDROGEN PEROXIDE 3% 118 ML BOTTLE TP SCH ×2 (09:00→20:22)
[2018-02-16] MEDS: DOCUSATE SODIUM 100 MG/10 ML LIQUID UDC GT SCH (09:00)
[2018-02-16] MEDS: CALMOSEPTINE 113 GM OINTMENT TP SCH ×2 (09:00→20:22)
[2018-02-16] MEDS: NUTRISOURCE FIBER 4 GM PACKET GT SCH ×2 (09:00→20:22)
[2018-02-16 09:25] VITALS: BP 145/73
[2018-02-16] MEDS: JEVITY 1.2 1000 ML LIQUID GT PRN (18:10)
[2018-02-16 20:12] VITALS: BP 126/70
[2018-02-16] MEDS: MULTIVIT, IRON, MIN NO. 8, FA TABLET GT SCH (20:22)
[2018-02-16] MEDS: ATORVASTATIN 10 MG TABLET GT SCH (20:22)
[2018-02-17] MEDS: IPRATROPIUM BROMIDE 0.5 MG/2.5 ML NEBU NEB SCH ×6 (04:11→23:35)
[2018-02-17] MEDS: ALBUTEROL SULFATE 2.5 MG/3 ML NEBU NEB SCH ×6 (04:11→23:35)
[2018-02-17] MEDS: BACLOFEN 10 MG TABLET GT SCH ×3 (05:19→21:14)
[2018-02-17] MEDS: CHOLECALCIFEROL 1,000 UNIT TABLET GT SCH (05:39)
[2018-02-17 08:06] VITALS: BP 112/80
[2018-02-17] MEDS: BUDESONIDE 0.5 MG/2 ML NEBU NEB SCH ×2 (08:22→19:22)
[2018-02-17] MEDS: CALCIUM CARBONATE 500 MG TABLET GT SCH ×2 (09:16→21:14)
[2018-02-17] MEDS: CALMOSEPTINE 113 GM OINTMENT TP SCH ×2 (09:16→21:14)
[2018-02-17] MEDS: HYDROGEN PEROXIDE 3% 118 ML BOTTLE TP SCH ×2 (09:16→21:14)
[2018-02-17] MEDS: NUTRISOURCE FIBER 4 GM PACKET GT SCH ×2 (09:16→21:14)
[2018-02-17] MEDS: DOCUSATE SODIUM 100 MG/10 ML LIQUID UDC GT SCH (09:16)
--- NOTE | 2018-02-17 16:02 | NUR ---
NEW TX ORDERS FOR GT REDNESS CARRIED OUT.
[2018-02-17] MEDS: ATORVASTATIN 10 MG TABLET GT SCH (21:14)
[2018-02-17] MEDS: COD LIVER OIL/ZINC OXIDE OINT 113 GM TUBE TP SCH (21:14)
[2018-02-17 22:00] VITALS: BP 118/76
[2018-02-18] MEDS: ALBUTEROL SULFATE 2.5 MG/3 ML NEBU NEB SCH ×6 (03:23→22:36)
[2018-02-18] MEDS: IPRATROPIUM BROMIDE 0.5 MG/2.5 ML NEBU NEB SCH ×6 (03:23→22:36)
[2018-02-18] MEDS: CHOLECALCIFEROL 1,000 UNIT TABLET GT SCH (06:54)
[2018-02-18] MEDS: BACLOFEN 10 MG TABLET GT SCH ×3 (06:54→21:55)
[2018-02-18] MEDS: BUDESONIDE 0.5 MG/2 ML NEBU NEB SCH ×2 (07:56→19:54)
[2018-02-18 08:00] VITALS: BP 141/81
[2018-02-18] MEDS: CALCIUM CARBONATE 500 MG TABLET GT SCH ×2 (09:00→21:55)
[2018-02-18] MEDS: DOCUSATE SODIUM 100 MG/10 ML LIQUID UDC GT SCH (09:00)
[2018-02-18] MEDS: CALMOSEPTINE 113 GM OINTMENT TP SCH ×2 (09:00→21:55)
[2018-02-18] MEDS: COD LIVER OIL/ZINC OXIDE OINT 113 GM TUBE TP SCH ×2 (09:00→21:55)
[2018-02-18] MEDS: NUTRISOURCE FIBER 4 GM PACKET GT SCH ×2 (09:00→21:55)
[2018-02-18] MEDS: HYDROGEN PEROXIDE 3% 118 ML BOTTLE TP SCH ×2 (11:18→21:55)
[2018-02-18] MEDS: ATORVASTATIN 10 MG TABLET GT SCH (21:55)
[2018-02-18] MEDS: MULTIVIT, IRON, MIN NO. 8, FA TABLET GT SCH (21:55)
[2018-02-18 22:00] VITALS: BP 136/80
[2018-02-19] MEDS: ALBUTEROL SULFATE 2.5 MG/3 ML NEBU NEB SCH ×6 (03:06→22:40)
[2018-02-19] MEDS: IPRATROPIUM BROMIDE 0.5 MG/2.5 ML NEBU NEB SCH ×6 (03:06→22:40)
[2018-02-19] MEDS: BACLOFEN 10 MG TABLET GT SCH ×3 (05:46→21:01)
[2018-02-19] MEDS: CHOLECALCIFEROL 1,000 UNIT TABLET GT SCH (05:46)
[2018-02-19] MEDS: BUDESONIDE 0.5 MG/2 ML NEBU NEB SCH ×2 (07:20→19:06)
[2018-02-19 08:00] VITALS: BP 99/55
[2018-02-19] MEDS: DOCUSATE SODIUM 100 MG/10 ML LIQUID UDC GT SCH (09:00)
[2018-02-19] MEDS: HYDROGEN PEROXIDE 3% 118 ML BOTTLE TP SCH ×2 (09:00→21:00)
[2018-02-19] MEDS: NUTRISOURCE FIBER 4 GM PACKET GT SCH ×2 (09:00→21:00)
[2018-02-19] MEDS: CALCIUM CARBONATE 500 MG TABLET GT SCH ×2 (09:00→21:00)
[2018-02-19] MEDS: COD LIVER OIL/ZINC OXIDE OINT 113 GM TUBE TP SCH ×2 (09:00→21:00)
[2018-02-19] MEDS: CALMOSEPTINE 113 GM OINTMENT TP SCH ×2 (09:00→21:00)
[2018-02-19 20:00] VITALS: BP 118/65
[2018-02-19] MEDS: ATORVASTATIN 10 MG TABLET GT SCH (21:00)
[2018-02-20] MEDS: ALBUTEROL SULFATE 2.5 MG/3 ML NEBU NEB SCH ×6 (02:42→23:52)
[2018-02-20] MEDS: IPRATROPIUM BROMIDE 0.5 MG/2.5 ML NEBU NEB SCH ×6 (02:42→23:52)
[2018-02-20] MEDS: BACLOFEN 10 MG TABLET GT SCH ×3 (05:22→22:00)
[2018-02-20] MEDS: CHOLECALCIFEROL 1,000 UNIT TABLET GT SCH (05:41)
[2018-02-20 08:00] VITALS: BP 116/71
[2018-02-20] MEDS: BUDESONIDE 0.5 MG/2 ML NEBU NEB SCH ×2 (08:10→19:45)
[2018-02-20] MEDS: CALMOSEPTINE 113 GM OINTMENT TP SCH ×2 (09:00→20:55)
[2018-02-20] MEDS: DOCUSATE SODIUM 100 MG/10 ML LIQUID UDC GT SCH (09:00)
[2018-02-20] MEDS: HYDROGEN PEROXIDE 3% 118 ML BOTTLE TP SCH ×2 (09:00→20:55)
[2018-02-20] MEDS: CALCIUM CARBONATE 500 MG TABLET GT SCH ×2 (09:00→20:55)
[2018-02-20] MEDS: NUTRISOURCE FIBER 4 GM PACKET GT SCH ×2 (09:00→20:55)
[2018-02-20] MEDS: COD LIVER OIL/ZINC OXIDE OINT 113 GM TUBE TP SCH ×2 (09:00→20:55)
[2018-02-20 20:52] VITALS: BP 123/62
[2018-02-20] MEDS: ATORVASTATIN 10 MG TABLET GT SCH (20:55)
[2018-02-20] MEDS: MULTIVIT, IRON, MIN NO. 8, FA TABLET GT SCH (20:55)
[2018-02-21] MEDS: IPRATROPIUM BROMIDE 0.5 MG/2.5 ML NEBU NEB SCH ×6 (04:13→23:24)
[2018-02-21] MEDS: ALBUTEROL SULFATE 2.5 MG/3 ML NEBU NEB SCH ×6 (04:13→23:24)
[2018-02-21] MEDS: BACLOFEN 10 MG TABLET GT SCH ×3 (05:17→21:12)
[2018-02-21] MEDS: CHOLECALCIFEROL 1,000 UNIT TABLET GT SCH (06:15)
[2018-02-21] MEDS: BUDESONIDE 0.5 MG/2 ML NEBU NEB SCH ×2 (07:09→20:48)
[2018-02-21] MEDS: DOCUSATE SODIUM 100 MG/10 ML LIQUID UDC GT SCH (08:30)
[2018-02-21] MEDS: NUTRISOURCE FIBER 4 GM PACKET GT SCH ×2 (08:30→21:10)
[2018-02-21] MEDS: CALCIUM CARBONATE 500 MG TABLET GT SCH ×2 (08:43→21:12)
[2018-02-21] MEDS: COD LIVER OIL/ZINC OXIDE OINT 113 GM TUBE TP SCH ×2 (08:45→21:12)
[2018-02-21] MEDS: CALMOSEPTINE 113 GM OINTMENT TP SCH ×2 (08:45→21:12)
[2018-02-21] MEDS: HYDROGEN PEROXIDE 3% 118 ML BOTTLE TP SCH ×2 (08:45→21:12)
[2018-02-21 15:06] VITALS: BP 110/72
[2018-02-21] MEDS: JEVITY 1.2 1000 ML LIQUID GT PRN (16:10)
[2018-02-21 20:43] VITALS: BP 129/75
[2018-02-21] MEDS: ATORVASTATIN 10 MG TABLET GT SCH (21:10)
[2018-02-22] MEDS: ALBUTEROL SULFATE 2.5 MG/3 ML NEBU NEB SCH ×6 (03:21→22:45)
[2018-02-22] MEDS: IPRATROPIUM BROMIDE 0.5 MG/2.5 ML NEBU NEB SCH ×6 (03:21→22:45)
[2018-02-22] MEDS: CHOLECALCIFEROL 1,000 UNIT TABLET GT SCH (05:51)
[2018-02-22] MEDS: BACLOFEN 10 MG TABLET GT SCH ×3 (05:51→21:18)
[2018-02-22] MEDS: BUDESONIDE 0.5 MG/2 ML NEBU NEB SCH ×2 (06:20→20:01)
[2018-02-22] MEDS: NUTRISOURCE FIBER 4 GM PACKET GT SCH ×2 (08:31→21:17)
[2018-02-22] MEDS: CALCIUM CARBONATE 500 MG TABLET GT SCH ×2 (08:31→21:17)
[2018-02-22] MEDS: DOCUSATE SODIUM 100 MG/10 ML LIQUID UDC GT SCH (08:31)
[2018-02-22] MEDS: CALMOSEPTINE 113 GM OINTMENT TP SCH ×2 (08:31→21:17)
[2018-02-22] MEDS: COD LIVER OIL/ZINC OXIDE OINT 113 GM TUBE TP SCH ×2 (08:32→21:18)
[2018-02-22] MEDS: HYDROGEN PEROXIDE 3% 118 ML BOTTLE TP SCH ×2 (08:32→21:18)
[2018-02-22 12:05] VITALS: BP 90/50
[2018-02-22] MEDS: JEVITY 1.2 1000 ML LIQUID GT PRN (17:34)
[2018-02-22 20:49] VITALS: BP 138/77
[2018-02-22] MEDS: MULTIVIT, IRON, MIN NO. 8, FA TABLET GT SCH (21:17)
[2018-02-22] MEDS: ATORVASTATIN 10 MG TABLET GT SCH (21:17)
[2018-02-23] MEDS: ALBUTEROL SULFATE 2.5 MG/3 ML NEBU NEB SCH ×6 (02:53→22:38)
[2018-02-23] MEDS: IPRATROPIUM BROMIDE 0.5 MG/2.5 ML NEBU NEB SCH ×6 (02:53→22:38)
[2018-02-23] MEDS: BACLOFEN 10 MG TABLET GT SCH ×3 (06:10→21:39)
[2018-02-23] MEDS: CHOLECALCIFEROL 1,000 UNIT TABLET GT SCH (06:10)
[2018-02-23] MEDS: BUDESONIDE 0.5 MG/2 ML NEBU NEB SCH ×2 (07:05→19:38)
[2018-02-23 08:00] VITALS: BP 127/69
[2018-02-23] MEDS: CALCIUM CARBONATE 500 MG TABLET GT SCH ×2 (08:46→21:38)
[2018-02-23] MEDS: NUTRISOURCE FIBER 4 GM PACKET GT SCH ×2 (08:46→21:38)
[2018-02-23] MEDS: DOCUSATE SODIUM 100 MG/10 ML LIQUID UDC GT SCH (08:46)
[2018-02-23] MEDS: HYDROGEN PEROXIDE 3% 118 ML BOTTLE TP SCH ×2 (08:47→21:39)
[2018-02-23] MEDS: CALMOSEPTINE 113 GM OINTMENT TP SCH ×2 (08:47→21:39)
[2018-02-23] MEDS: COD LIVER OIL/ZINC OXIDE OINT 113 GM TUBE TP SCH ×2 (08:47→21:39)
[2018-02-23] MEDS: JEVITY 1.2 1000 ML LIQUID GT PRN (17:45)
[2018-02-23] MEDS: ATORVASTATIN 10 MG TABLET GT SCH (21:38)
[2018-02-23 22:00] VITALS: BP 125/79
[2018-02-24] MEDS: ALBUTEROL SULFATE 2.5 MG/3 ML NEBU NEB SCH ×6 (02:31→22:40)
[2018-02-24] MEDS: IPRATROPIUM BROMIDE 0.5 MG/2.5 ML NEBU NEB SCH ×6 (02:31→22:40)
[2018-02-24] MEDS: BACLOFEN 10 MG TABLET GT SCH ×3 (06:28→21:22)
[2018-02-24] MEDS: CHOLECALCIFEROL 1,000 UNIT TABLET GT SCH (06:30)
[2018-02-24 08:00] VITALS: BP 127/76
[2018-02-24] MEDS: CALCIUM CARBONATE 500 MG TABLET GT SCH ×2 (08:14→21:22)
[2018-02-24] MEDS: CALMOSEPTINE 113 GM OINTMENT TP SCH ×2 (08:14→21:22)
[2018-02-24] MEDS: NUTRISOURCE FIBER 4 GM PACKET GT SCH ×2 (08:14→21:22)
[2018-02-24] MEDS: DOCUSATE SODIUM 100 MG/10 ML LIQUID UDC GT SCH (08:14)
[2018-02-24] MEDS: HYDROGEN PEROXIDE 3% 118 ML BOTTLE TP SCH ×2 (08:15→21:22)
[2018-02-24] MEDS: COD LIVER OIL/ZINC OXIDE OINT 113 GM TUBE TP SCH ×2 (08:15→21:22)
[2018-02-24] MEDS: BUDESONIDE 0.5 MG/2 ML NEBU NEB SCH ×2 (08:30→19:23)
[2018-02-24] MEDS: MULTIVIT, IRON, MIN NO. 8, FA TABLET GT SCH (21:22)
[2018-02-24] MEDS: ATORVASTATIN 10 MG TABLET GT SCH (21:22)
[2018-02-24 22:00] VITALS: BP 97/54
[2018-02-25] MEDS: JEVITY 1.2 1000 ML LIQUID GT PRN (01:16)
[2018-02-25] MEDS: ALBUTEROL SULFATE 2.5 MG/3 ML NEBU NEB SCH ×6 (02:44→23:32)
[2018-02-25] MEDS: IPRATROPIUM BROMIDE 0.5 MG/2.5 ML NEBU NEB SCH ×6 (02:44→23:32)
[2018-02-25] MEDS: CHOLECALCIFEROL 1,000 UNIT TABLET GT SCH (06:10)
[2018-02-25] MEDS: BACLOFEN 10 MG TABLET GT SCH ×3 (06:10→22:11)
[2018-02-25] MEDS: BUDESONIDE 0.5 MG/2 ML NEBU NEB SCH ×2 (07:33→20:01)
[2018-02-25 08:00] VITALS: BP 108/67
[2018-02-25] MEDS: CALMOSEPTINE 113 GM OINTMENT TP SCH ×2 (08:00→20:45)
[2018-02-25] MEDS: HYDROGEN PEROXIDE 3% 118 ML BOTTLE TP SCH ×2 (08:00→20:45)
[2018-02-25] MEDS: CALCIUM CARBONATE 500 MG TABLET GT SCH ×2 (08:00→20:45)
[2018-02-25] MEDS: COD LIVER OIL/ZINC OXIDE OINT 113 GM TUBE TP SCH ×2 (08:00→20:45)
[2018-02-25] MEDS: DOCUSATE SODIUM 100 MG/10 ML LIQUID UDC GT SCH (08:00)
[2018-02-25] MEDS: NUTRISOURCE FIBER 4 GM PACKET GT SCH ×2 (08:00→20:44)
[2018-02-25] MEDS: ATORVASTATIN 10 MG TABLET GT SCH (20:44)
[2018-02-25 22:37] VITALS: BP 230/83
[2018-02-26] MEDS: IPRATROPIUM BROMIDE 0.5 MG/2.5 ML NEBU NEB SCH ×6 (02:31→22:41)
[2018-02-26] MEDS: ALBUTEROL SULFATE 2.5 MG/3 ML NEBU NEB SCH ×6 (02:31→22:41)
[2018-02-26] MEDS: BACLOFEN 10 MG TABLET GT SCH ×3 (05:35→22:06)
[2018-02-26] MEDS: CHOLECALCIFEROL 1,000 UNIT TABLET GT SCH (05:35)
[2018-02-26] MEDS: BUDESONIDE 0.5 MG/2 ML NEBU NEB SCH ×2 (07:21→20:19)
[2018-02-26 08:00] VITALS: BP 110/64
[2018-02-26] MEDS: CALCIUM CARBONATE 500 MG TABLET GT SCH ×2 (09:00→20:51)
[2018-02-26] MEDS: HYDROGEN PEROXIDE 3% 118 ML BOTTLE TP SCH ×2 (09:00→20:51)
[2018-02-26] MEDS: CALMOSEPTINE 113 GM OINTMENT TP SCH ×2 (09:00→20:51)
[2018-02-26] MEDS: COD LIVER OIL/ZINC OXIDE OINT 113 GM TUBE TP SCH ×2 (09:00→20:51)
[2018-02-26] MEDS: NUTRISOURCE FIBER 4 GM PACKET GT SCH ×2 (09:00→20:49)
[2018-02-26] MEDS: DOCUSATE SODIUM 100 MG/10 ML LIQUID UDC GT SCH (09:00)
[2018-02-26 20:00] VITALS: BP 114/66
[2018-02-26] MEDS: ATORVASTATIN 10 MG TABLET GT SCH (20:48)
[2018-02-26] MEDS: MULTIVIT, IRON, MIN NO. 8, FA TABLET GT SCH (20:51)
[2018-02-27] MEDS: IPRATROPIUM BROMIDE 0.5 MG/2.5 ML NEBU NEB SCH ×6 (03:06→22:37)
[2018-02-27] MEDS: ALBUTEROL SULFATE 2.5 MG/3 ML NEBU NEB SCH ×6 (03:06→22:37)
[2018-02-27] MEDS: BACLOFEN 10 MG TABLET GT SCH ×3 (05:55→21:30)
[2018-02-27] MEDS: CHOLECALCIFEROL 1,000 UNIT TABLET GT SCH (05:55)
[2018-02-27] MEDS: BUDESONIDE 0.5 MG/2 ML NEBU NEB SCH ×2 (06:50→20:06)
[2018-02-27] MEDS: JEVITY 1.2 1000 ML LIQUID GT PRN (06:57)
[2018-02-27 08:00] VITALS: BP 162/65
[2018-02-27] MEDS: CALCIUM CARBONATE 500 MG TABLET GT SCH ×2 (08:38→20:15)
[2018-02-27] MEDS: DOCUSATE SODIUM 100 MG/10 ML LIQUID UDC GT SCH (08:38)
[2018-02-27] MEDS: NUTRISOURCE FIBER 4 GM PACKET GT SCH ×2 (08:38→20:15)
[2018-02-27] MEDS: CALMOSEPTINE 113 GM OINTMENT TP SCH ×2 (08:38→20:17)
[2018-02-27] MEDS: HYDROGEN PEROXIDE 3% 118 ML BOTTLE TP SCH ×2 (08:39→20:17)
[2018-02-27] MEDS: COD LIVER OIL/ZINC OXIDE OINT 113 GM TUBE TP SCH ×2 (08:39→20:17)
[2018-02-27 20:00] VITALS: BP 104/74
[2018-02-27] MEDS: ATORVASTATIN 10 MG TABLET GT SCH (20:15)
[2018-02-28] MEDS: ALBUTEROL SULFATE 2.5 MG/3 ML NEBU NEB SCH ×6 (02:31→23:07)
[2018-02-28] MEDS: IPRATROPIUM BROMIDE 0.5 MG/2.5 ML NEBU NEB SCH ×6 (02:31→23:07)
[2018-02-28] MEDS: CHOLECALCIFEROL 1,000 UNIT TABLET GT SCH (05:32)
[2018-02-28] MEDS: BACLOFEN 10 MG TABLET GT SCH ×3 (05:32→21:29)
[2018-02-28] MEDS: JEVITY 1.2 1000 ML LIQUID GT PRN (05:37)
[2018-02-28] MEDS: BUDESONIDE 0.5 MG/2 ML NEBU NEB SCH ×2 (07:59→19:49)
[2018-02-28] MEDS: HYDROGEN PEROXIDE 3% 118 ML BOTTLE TP SCH ×2 (08:10→20:42)
[2018-02-28] MEDS: CALMOSEPTINE 113 GM OINTMENT TP SCH ×2 (08:10→20:42)
[2018-02-28] MEDS: COD LIVER OIL/ZINC OXIDE OINT 113 GM TUBE TP SCH ×2 (08:10→20:42)
[2018-02-28] MEDS: NUTRISOURCE FIBER 4 GM PACKET GT SCH ×2 (08:10→20:42)
[2018-02-28] MEDS: CALCIUM CARBONATE 500 MG TABLET GT SCH ×2 (08:10→20:42)
[2018-02-28] MEDS: DOCUSATE SODIUM 100 MG/10 ML LIQUID UDC GT SCH (08:10)
[2018-02-28 20:00] VITALS: BP 106/64
[2018-02-28] MEDS: ATORVASTATIN 10 MG TABLET GT SCH (20:42)
[2018-02-28] MEDS: MULTIVIT, IRON, MIN NO. 8, FA TABLET GT SCH (20:42)
[2018-03-01] MEDS: JEVITY 1.2 1000 ML LIQUID GT PRN (02:20)
[2018-03-01] MEDS: IPRATROPIUM BROMIDE 0.5 MG/2.5 ML NEBU NEB SCH ×6 (02:56→23:19)
[2018-03-01] MEDS: ALBUTEROL SULFATE 2.5 MG/3 ML NEBU NEB SCH ×6 (02:56→23:19)
[2018-03-01] MEDS: CHOLECALCIFEROL 1,000 UNIT TABLET GT SCH (05:30)
[2018-03-01] MEDS: BACLOFEN 10 MG TABLET GT SCH ×3 (05:30→21:46)
[2018-03-01 08:00] VITALS: BP 112/67
[2018-03-01] MEDS: BUDESONIDE 0.5 MG/2 ML NEBU NEB SCH ×2 (08:11→19:10)
[2018-03-01] MEDS: NUTRISOURCE FIBER 4 GM PACKET GT SCH ×2 (08:40→21:46)
[2018-03-01] MEDS: CALCIUM CARBONATE 500 MG TABLET GT SCH ×2 (08:40→21:46)
[2018-03-01] MEDS: DOCUSATE SODIUM 100 MG/10 ML LIQUID UDC GT SCH (08:40)
[2018-03-01] MEDS: HYDROGEN PEROXIDE 3% 118 ML BOTTLE TP SCH ×2 (08:41→21:46)
[2018-03-01] MEDS: CALMOSEPTINE 113 GM OINTMENT TP SCH ×2 (08:41→21:46)
[2018-03-01] MEDS: COD LIVER OIL/ZINC OXIDE OINT 113 GM TUBE TP SCH ×2 (08:41→21:46)
[2018-03-01] MEDS: ATORVASTATIN 10 MG TABLET GT SCH (21:46)
[2018-03-01 22:00] VITALS: BP 117/66
[2018-03-02] MEDS: JEVITY 1.2 1000 ML LIQUID GT PRN (01:27)
[2018-03-02] MEDS: ALBUTEROL SULFATE 2.5 MG/3 ML NEBU NEB SCH ×6 (03:01→22:46)
[2018-03-02] MEDS: IPRATROPIUM BROMIDE 0.5 MG/2.5 ML NEBU NEB SCH ×6 (03:01→22:46)
[2018-03-02] MEDS: BACLOFEN 10 MG TABLET GT SCH ×3 (05:51→21:22)
[2018-03-02] MEDS: CHOLECALCIFEROL 1,000 UNIT TABLET GT SCH (05:51)
[2018-03-02] MEDS: BUDESONIDE 0.5 MG/2 ML NEBU NEB SCH ×2 (07:57→20:40)
[2018-03-02 08:00] VITALS: BP 112/67
[2018-03-02] MEDS: DOCUSATE SODIUM 100 MG/10 ML LIQUID UDC GT SCH (08:41)
[2018-03-02] MEDS: NUTRISOURCE FIBER 4 GM PACKET GT SCH ×2 (08:41→21:22)
[2018-03-02] MEDS: COD LIVER OIL/ZINC OXIDE OINT 113 GM TUBE TP SCH ×2 (08:41→21:22)
[2018-03-02] MEDS: CALMOSEPTINE 113 GM OINTMENT TP SCH ×2 (08:41→21:22)
[2018-03-02] MEDS: HYDROGEN PEROXIDE 3% 118 ML BOTTLE TP SCH ×2 (08:41→21:22)
[2018-03-02] MEDS: CALCIUM CARBONATE 500 MG TABLET GT SCH ×2 (08:41→21:22)
[2018-03-02] MEDS: ATORVASTATIN 10 MG TABLET GT SCH (21:22)
[2018-03-02] MEDS: MULTIVIT, IRON, MIN NO. 8, FA TABLET GT SCH (21:22)
[2018-03-02 23:06] VITALS: BP 108/61
[2018-03-03] MEDS: JEVITY 1.2 1000 ML LIQUID GT PRN (00:30)
[2018-03-03] MEDS: ALBUTEROL SULFATE 2.5 MG/3 ML NEBU NEB SCH ×6 (02:49→22:44)
[2018-03-03] MEDS: IPRATROPIUM BROMIDE 0.5 MG/2.5 ML NEBU NEB SCH ×6 (02:49→22:44)
[2018-03-03] MEDS: BACLOFEN 10 MG TABLET GT SCH ×3 (05:26→21:06)
[2018-03-03] MEDS: CHOLECALCIFEROL 1,000 UNIT TABLET GT SCH (05:34)
[2018-03-03] MEDS: BUDESONIDE 0.5 MG/2 ML NEBU NEB SCH ×2 (07:09→19:40)
[2018-03-03 08:00] VITALS: BP 108/61
[2018-03-03] MEDS: NUTRISOURCE FIBER 4 GM PACKET GT SCH ×2 (08:02→21:06)
[2018-03-03] MEDS: COD LIVER OIL/ZINC OXIDE OINT 113 GM TUBE TP SCH ×2 (08:02→21:06)
[2018-03-03] MEDS: HYDROGEN PEROXIDE 3% 118 ML BOTTLE TP SCH ×2 (08:02→21:06)
[2018-03-03] MEDS: CALCIUM CARBONATE 500 MG TABLET GT SCH ×2 (08:02→21:06)
[2018-03-03] MEDS: CALMOSEPTINE 113 GM OINTMENT TP SCH ×2 (08:02→21:06)
[2018-03-03] MEDS: DOCUSATE SODIUM 100 MG/10 ML LIQUID UDC GT SCH (08:02)
[2018-03-03] MEDS: ATORVASTATIN 10 MG TABLET GT SCH (21:06)
[2018-03-03 22:00] VITALS: BP 118/66
[2018-03-04] MEDS: JEVITY 1.2 1000 ML LIQUID GT PRN (00:25)
[2018-03-04] MEDS: IPRATROPIUM BROMIDE 0.5 MG/2.5 ML NEBU NEB SCH ×6 (03:10→22:40)
[2018-03-04] MEDS: ALBUTEROL SULFATE 2.5 MG/3 ML NEBU NEB SCH ×6 (03:10→22:40)
[2018-03-04] MEDS: BACLOFEN 10 MG TABLET GT SCH ×3 (06:12→21:31)
[2018-03-04] MEDS: CHOLECALCIFEROL 1,000 UNIT TABLET GT SCH (06:12)
[2018-03-04] MEDS: BUDESONIDE 0.5 MG/2 ML NEBU NEB SCH ×2 (07:27→19:05)
[2018-03-04 08:00] VITALS: BP 99/51
[2018-03-04] MEDS: CALCIUM CARBONATE 500 MG TABLET GT SCH ×2 (08:19→21:30)
[2018-03-04] MEDS: NUTRISOURCE FIBER 4 GM PACKET GT SCH ×2 (08:19→21:30)
[2018-03-04] MEDS: HYDROGEN PEROXIDE 3% 118 ML BOTTLE TP SCH ×2 (08:19→21:31)
[2018-03-04] MEDS: DOCUSATE SODIUM 100 MG/10 ML LIQUID UDC GT SCH (08:19)
[2018-03-04] MEDS: CALMOSEPTINE 113 GM OINTMENT TP SCH ×2 (08:19→21:31)
[2018-03-04] MEDS: COD LIVER OIL/ZINC OXIDE OINT 113 GM TUBE TP SCH ×2 (08:19→21:31)
[2018-03-04] MEDS: MULTIVIT, IRON, MIN NO. 8, FA TABLET GT SCH (21:30)
[2018-03-04] MEDS: ATORVASTATIN 10 MG TABLET GT SCH (21:30)
[2018-03-04 22:00] VITALS: BP 134/76
[2018-03-05] MEDS: ALBUTEROL SULFATE 2.5 MG/3 ML NEBU NEB SCH ×6 (02:43→22:37)
[2018-03-05] MEDS: IPRATROPIUM BROMIDE 0.5 MG/2.5 ML NEBU NEB SCH ×6 (02:43→22:37)
[2018-03-05] MEDS: BACLOFEN 10 MG TABLET GT SCH ×3 (06:11→21:01)
[2018-03-05] MEDS: CHOLECALCIFEROL 1,000 UNIT TABLET GT SCH (06:11)
[2018-03-05] MEDS: JEVITY 1.2 1000 ML LIQUID GT PRN (06:39)
[2018-03-05] MEDS: BUDESONIDE 0.5 MG/2 ML NEBU NEB SCH ×2 (07:32→19:43)
[2018-03-05 08:00] VITALS: BP 114/61
[2018-03-05] MEDS: HYDROGEN PEROXIDE 3% 118 ML BOTTLE TP SCH ×2 (08:47→21:01)
[2018-03-05] MEDS: NUTRISOURCE FIBER 4 GM PACKET GT SCH ×2 (08:47→21:00)
[2018-03-05] MEDS: CALCIUM CARBONATE 500 MG TABLET GT SCH ×2 (08:47→21:00)
[2018-03-05] MEDS: COD LIVER OIL/ZINC OXIDE OINT 113 GM TUBE TP SCH ×2 (08:47→21:01)
[2018-03-05] MEDS: CALMOSEPTINE 113 GM OINTMENT TP SCH ×2 (08:47→21:00)
[2018-03-05] MEDS: DOCUSATE SODIUM 100 MG/10 ML LIQUID UDC GT SCH (08:47)
--- NOTE | 2018-03-05 13:54 | NUR ---
INTERDISCIPLINARY PLAN OF CARE CONFERENCE was held today. Patient's family was invited to the meeting, but they were unable to attend due to living [id number]. Dr. Underwood and the Interdisciplinary Team reviewed the current plan of care in detail. RN reported on patient's current medical condition. No major changes were reported. See RN IDT conference notes. See also all other disciplines IDT notes and physician's progress notes for additional details.
--- NOTE | 2018-03-05 14:38 | NUR ---
Pharmacy Update from Today's 03/05/18 IDT Meeting: VS: Temp 97.8 BP 114/61 HR 62 LABS: (from 02/06/18) Wbc 4.3H/H 13.8/39.6Plt 147 Na 140K 4.4Cl 103CO2 27BUN/SCr 19/0.7 BS 98Ca 9.1 MEDICATION USE REVIEWED: > Pt not on any anti-psych or anti-seizure medications > PRN MED USAGE: (January) Tylenol for pain used x 0 Tylenol for temp used x 0 Bisacodyl PRN x1 NEW ORDERS NOTED: > Rx rec for annual labs, agreed, ordered and resulted Pt was reviewed and discussed in depth, no medication concerns or issues reported at this time, pt remains stable on current regimen. Will continue to follow
[2018-03-05 20:32] VITALS: BP 123/90
[2018-03-05] MEDS: ATORVASTATIN 10 MG TABLET GT SCH (21:00)
[2018-03-06] MEDS: ALBUTEROL SULFATE 2.5 MG/3 ML NEBU NEB SCH ×6 (02:44→22:40)
[2018-03-06] MEDS: IPRATROPIUM BROMIDE 0.5 MG/2.5 ML NEBU NEB SCH ×6 (02:44→22:40)
[2018-03-06] MEDS: BACLOFEN 10 MG TABLET GT SCH ×3 (05:34→21:10)
[2018-03-06] MEDS: CHOLECALCIFEROL 1,000 UNIT TABLET GT SCH (05:34)
[2018-03-06] MEDS: JEVITY 1.2 1000 ML LIQUID GT PRN (06:51)
[2018-03-06 08:00] VITALS: BP 114/73
--- NOTE | 2018-03-06 08:00 | NUR ---
SEEN BY HALIAN JETER.
[2018-03-06] MEDS: BUDESONIDE 0.5 MG/2 ML NEBU NEB SCH ×2 (08:07→19:29)
[2018-03-06] MEDS: CALMOSEPTINE 113 GM OINTMENT TP SCH ×2 (08:40→21:10)
[2018-03-06] MEDS: DOCUSATE SODIUM 100 MG/10 ML LIQUID UDC GT SCH (08:40)
[2018-03-06] MEDS: COD LIVER OIL/ZINC OXIDE OINT 113 GM TUBE TP SCH ×2 (08:40→21:10)
[2018-03-06] MEDS: NUTRISOURCE FIBER 4 GM PACKET GT SCH ×2 (08:40→21:09)
[2018-03-06] MEDS: CALCIUM CARBONATE 500 MG TABLET GT SCH ×2 (08:40→21:09)
[2018-03-06] MEDS: HYDROGEN PEROXIDE 3% 118 ML BOTTLE TP SCH ×2 (08:40→21:10)
--- NOTE | 2018-03-06 13:30 | NUR ---
SEEN AND EXAMINED BY GARETH JETER.
[2018-03-06 20:42] VITALS: BP 122/77
[2018-03-06] MEDS: ATORVASTATIN 10 MG TABLET GT SCH (21:08)
[2018-03-06] MEDS: MULTIVIT, IRON, MIN NO. 8, FA TABLET GT SCH (21:09)
[2018-03-07] MEDS: IPRATROPIUM BROMIDE 0.5 MG/2.5 ML NEBU NEB SCH ×6 (02:30→23:35)
[2018-03-07] MEDS: ALBUTEROL SULFATE 2.5 MG/3 ML NEBU NEB SCH ×6 (02:31→23:35)
[2018-03-07] MEDS: CHOLECALCIFEROL 1,000 UNIT TABLET GT SCH (05:46)
[2018-03-07] MEDS: BACLOFEN 10 MG TABLET GT SCH ×3 (05:46→21:50)
[2018-03-07] MEDS: JEVITY 1.2 1000 ML LIQUID GT PRN (05:52)
[2018-03-07] MEDS: BUDESONIDE 0.5 MG/2 ML NEBU NEB SCH ×2 (07:52→19:20)
[2018-03-07] MEDS: HYDROGEN PEROXIDE 3% 118 ML BOTTLE TP SCH ×2 (08:55→21:50)
[2018-03-07] MEDS: NUTRISOURCE FIBER 4 GM PACKET GT SCH ×2 (08:55→21:47)
[2018-03-07] MEDS: CALMOSEPTINE 113 GM OINTMENT TP SCH ×2 (08:55→21:50)
[2018-03-07] MEDS: COD LIVER OIL/ZINC OXIDE OINT 113 GM TUBE TP SCH ×2 (08:55→21:50)
[2018-03-07] MEDS: DOCUSATE SODIUM 100 MG/10 ML LIQUID UDC GT SCH (08:55)
[2018-03-07] MEDS: CALCIUM CARBONATE 500 MG TABLET GT SCH ×2 (08:55→21:50)
[2018-03-07 15:50] VITALS: BP 94/60
[2018-03-07 19:54] VITALS: BP 125/75
[2018-03-07] MEDS: ATORVASTATIN 10 MG TABLET GT SCH (21:47)
[2018-03-08] MEDS: ALBUTEROL SULFATE 2.5 MG/3 ML NEBU NEB SCH ×6 (02:30→23:17)
[2018-03-08] MEDS: IPRATROPIUM BROMIDE 0.5 MG/2.5 ML NEBU NEB SCH ×6 (02:30→23:17)
[2018-03-08] MEDS: JEVITY 1.2 1000 ML LIQUID GT PRN (05:36)
[2018-03-08] MEDS: BACLOFEN 10 MG TABLET GT SCH ×3 (05:36→22:00)
[2018-03-08] MEDS: CHOLECALCIFEROL 1,000 UNIT TABLET GT SCH (05:36)
[2018-03-08] MEDS: BUDESONIDE 0.5 MG/2 ML NEBU NEB SCH ×2 (08:08→20:26)
[2018-03-08] MEDS: DOCUSATE SODIUM 100 MG/10 ML LIQUID UDC GT SCH (08:52)
[2018-03-08] MEDS: NUTRISOURCE FIBER 4 GM PACKET GT SCH ×2 (08:53→20:43)
[2018-03-08] MEDS: CALMOSEPTINE 113 GM OINTMENT TP SCH ×2 (08:53→20:44)
[2018-03-08] MEDS: CALCIUM CARBONATE 500 MG TABLET GT SCH ×2 (08:53→20:43)
[2018-03-08] MEDS: HYDROGEN PEROXIDE 3% 118 ML BOTTLE TP SCH ×2 (08:53→20:44)
[2018-03-08] MEDS: COD LIVER OIL/ZINC OXIDE OINT 113 GM TUBE TP SCH ×2 (08:53→20:44)
--- NOTE | 2018-03-08 10:48 | NUR ---
PT. SEEN BY HALINA GREY AND BENNYO.
[2018-03-08 11:17] VITALS: BP 165/73
--- NOTE | 2018-03-08 17:30 | NUR ---
SEEN BY DR. ALBERTO JETER.
[2018-03-08 20:03] VITALS: BP 123/75
[2018-03-08] MEDS: ATORVASTATIN 10 MG TABLET GT SCH (20:43)
[2018-03-08] MEDS: MULTIVIT, IRON, MIN NO. 8, FA TABLET GT SCH (20:43)
[2018-03-09] MEDS: IPRATROPIUM BROMIDE 0.5 MG/2.5 ML NEBU NEB SCH ×6 (02:42→22:37)
[2018-03-09] MEDS: ALBUTEROL SULFATE 2.5 MG/3 ML NEBU NEB SCH ×6 (02:42→22:37)
[2018-03-09] MEDS: BACLOFEN 10 MG TABLET GT SCH ×3 (05:15→21:22)
[2018-03-09] MEDS: JEVITY 1.2 1000 ML LIQUID GT PRN (05:15)
[2018-03-09] MEDS: CHOLECALCIFEROL 1,000 UNIT TABLET GT SCH (06:34)
[2018-03-09] MEDS: BUDESONIDE 0.5 MG/2 ML NEBU NEB SCH ×2 (07:28→19:56)
[2018-03-09 08:06] VITALS: BP 117/74
[2018-03-09] MEDS: COD LIVER OIL/ZINC OXIDE OINT 113 GM TUBE TP SCH ×2 (09:55→21:22)
[2018-03-09] MEDS: CALMOSEPTINE 113 GM OINTMENT TP SCH ×2 (09:55→21:22)
[2018-03-09] MEDS: DOCUSATE SODIUM 100 MG/10 ML LIQUID UDC GT SCH (09:55)
[2018-03-09] MEDS: CALCIUM CARBONATE 500 MG TABLET GT SCH ×2 (09:55→21:22)
[2018-03-09] MEDS: NUTRISOURCE FIBER 4 GM PACKET GT SCH ×2 (09:55→21:22)
[2018-03-09] MEDS: HYDROGEN PEROXIDE 3% 118 ML BOTTLE TP SCH ×2 (09:55→21:22)
[2018-03-09 20:32] VITALS: BP 113/86
[2018-03-09] MEDS: ATORVASTATIN 10 MG TABLET GT SCH (21:22)
[2018-03-10] MEDS: ALBUTEROL SULFATE 2.5 MG/3 ML NEBU NEB SCH ×6 (02:33→22:41)
[2018-03-10] MEDS: IPRATROPIUM BROMIDE 0.5 MG/2.5 ML NEBU NEB SCH ×6 (02:33→22:41)
[2018-03-10] MEDS: BACLOFEN 10 MG TABLET GT SCH ×3 (06:45→21:50)
[2018-03-10] MEDS: CHOLECALCIFEROL 1,000 UNIT TABLET GT SCH (06:45)
[2018-03-10] MEDS: BUDESONIDE 0.5 MG/2 ML NEBU NEB SCH ×2 (08:08→19:32)
[2018-03-10] MEDS: CALCIUM CARBONATE 500 MG TABLET GT SCH ×2 (09:59→21:49)
[2018-03-10] MEDS: DOCUSATE SODIUM 100 MG/10 ML LIQUID UDC GT SCH (09:59)
[2018-03-10] MEDS: CALMOSEPTINE 113 GM OINTMENT TP SCH ×2 (09:59→21:50)
[2018-03-10] MEDS: COD LIVER OIL/ZINC OXIDE OINT 113 GM TUBE TP SCH (09:59)
[2018-03-10] MEDS: HYDROGEN PEROXIDE 3% 118 ML BOTTLE TP SCH ×2 (09:59→21:50)
[2018-03-10] MEDS: NUTRISOURCE FIBER 4 GM PACKET GT SCH ×2 (09:59→21:49)
[2018-03-10 10:46] VITALS: BP 129/78
--- NOTE | 2018-03-10 19:36 | NUR ---
Seen and examined by Dorothy cameron NP with no new order.
[2018-03-10 20:00] VITALS: BP 107/62
[2018-03-10] MEDS: MULTIVIT, IRON, MIN NO. 8, FA TABLET GT SCH (21:49)
[2018-03-10] MEDS: ATORVASTATIN 10 MG TABLET GT SCH (21:49)
[2018-03-11] MEDS: ALBUTEROL SULFATE 2.5 MG/3 ML NEBU NEB SCH ×8 (02:36→22:40)
[2018-03-11] MEDS: IPRATROPIUM BROMIDE 0.5 MG/2.5 ML NEBU NEB SCH ×8 (02:36→22:40)
[2018-03-11] MEDS: CHOLECALCIFEROL 1,000 UNIT TABLET GT SCH (06:48)
[2018-03-11] MEDS: BACLOFEN 10 MG TABLET GT SCH ×3 (06:48→21:58)
[2018-03-11] MEDS: JEVITY 1.2 1000 ML LIQUID GT PRN (06:49)
[2018-03-11] MEDS: BUDESONIDE 0.5 MG/2 ML NEBU NEB SCH ×2 (07:52→19:53)
[2018-03-11 08:00] VITALS: BP 129/74
[2018-03-11] MEDS: CALCIUM CARBONATE 500 MG TABLET GT SCH ×2 (08:22→21:58)
[2018-03-11] MEDS: NUTRISOURCE FIBER 4 GM PACKET GT SCH ×2 (08:22→21:58)
[2018-03-11] MEDS: CALMOSEPTINE 113 GM OINTMENT TP SCH ×2 (08:22→21:58)
[2018-03-11] MEDS: HYDROGEN PEROXIDE 3% 118 ML BOTTLE TP SCH ×2 (08:22→21:58)
[2018-03-11] MEDS: DOCUSATE SODIUM 100 MG/10 ML LIQUID UDC GT SCH (08:22)
[2018-03-11 20:20] VITALS: BP 118/73
[2018-03-11] MEDS: ATORVASTATIN 10 MG TABLET GT SCH (21:58)
[2018-03-12] MEDS: ALBUTEROL SULFATE 2.5 MG/3 ML NEBU NEB SCH ×6 (03:12→22:45)
[2018-03-12] MEDS: IPRATROPIUM BROMIDE 0.5 MG/2.5 ML NEBU NEB SCH ×6 (03:12→22:45)
[2018-03-12] MEDS: BACLOFEN 10 MG TABLET GT SCH ×3 (06:49→21:13)
[2018-03-12] MEDS: JEVITY 1.2 1000 ML LIQUID GT PRN ×2 (06:49→18:52)
[2018-03-12] MEDS: CHOLECALCIFEROL 1,000 UNIT TABLET GT SCH (06:49)
[2018-03-12] MEDS: BUDESONIDE 0.5 MG/2 ML NEBU NEB SCH ×2 (07:20→18:58)
[2018-03-12 08:00] VITALS: BP 146/63
[2018-03-12] MEDS: CALCIUM CARBONATE 500 MG TABLET GT SCH ×2 (08:48→21:13)
[2018-03-12] MEDS: CALMOSEPTINE 113 GM OINTMENT TP SCH ×2 (08:48→21:13)
[2018-03-12] MEDS: HYDROGEN PEROXIDE 3% 118 ML BOTTLE TP SCH ×2 (08:48→21:13)
[2018-03-12] MEDS: NUTRISOURCE FIBER 4 GM PACKET GT SCH ×2 (08:48→21:13)
[2018-03-12] MEDS: DOCUSATE SODIUM 100 MG/10 ML LIQUID UDC GT SCH (08:48)
[2018-03-12 20:53] VITALS: BP 105/66
[2018-03-12] MEDS: ATORVASTATIN 10 MG TABLET GT SCH (21:13)
[2018-03-12] MEDS: MULTIVIT, IRON, MIN NO. 8, FA TABLET GT SCH (21:13)
[2018-03-13] MEDS: ALBUTEROL SULFATE 2.5 MG/3 ML NEBU NEB SCH ×6 (03:40→22:37)
[2018-03-13] MEDS: IPRATROPIUM BROMIDE 0.5 MG/2.5 ML NEBU NEB SCH ×6 (03:40→22:37)
[2018-03-13] MEDS: BACLOFEN 10 MG TABLET GT SCH ×3 (05:58→21:05)
[2018-03-13] MEDS: CHOLECALCIFEROL 1,000 UNIT TABLET GT SCH (05:58)
[2018-03-13] MEDS: BUDESONIDE 0.5 MG/2 ML NEBU NEB SCH ×2 (07:55→20:10)
[2018-03-13 08:00] VITALS: BP 145/85
[2018-03-13] MEDS: HYDROGEN PEROXIDE 3% 118 ML BOTTLE TP SCH ×2 (08:58→21:05)
[2018-03-13] MEDS: CALCIUM CARBONATE 500 MG TABLET GT SCH ×2 (08:58→21:05)
[2018-03-13] MEDS: NUTRISOURCE FIBER 4 GM PACKET GT SCH ×2 (08:58→21:05)
[2018-03-13] MEDS: CALMOSEPTINE 113 GM OINTMENT TP SCH ×2 (08:58→21:05)
[2018-03-13] MEDS: DOCUSATE SODIUM 100 MG/10 ML LIQUID UDC GT SCH (08:58)
--- NOTE | 2018-03-13 13:00 | NUR ---
Seen by Alejandro LU,no new orders .
[2018-03-13 20:00] VITALS: BP 131/82
[2018-03-13] MEDS: ATORVASTATIN 10 MG TABLET GT SCH (21:05)
[2018-03-13] MEDS: JEVITY 1.2 1000 ML LIQUID GT PRN (21:15)
[2018-03-14] MEDS: IPRATROPIUM BROMIDE 0.5 MG/2.5 ML NEBU NEB SCH ×6 (02:30→22:39)
[2018-03-14] MEDS: ALBUTEROL SULFATE 2.5 MG/3 ML NEBU NEB SCH ×6 (02:30→22:39)
[2018-03-14] MEDS: BACLOFEN 10 MG TABLET GT SCH ×3 (05:28→21:49)
[2018-03-14] MEDS: CHOLECALCIFEROL 1,000 UNIT TABLET GT SCH (05:34)
[2018-03-14] MEDS: BUDESONIDE 0.5 MG/2 ML NEBU NEB SCH ×2 (07:51→20:23)
[2018-03-14] MEDS: NUTRISOURCE FIBER 4 GM PACKET GT SCH ×2 (08:39→20:28)
[2018-03-14] MEDS: HYDROGEN PEROXIDE 3% 118 ML BOTTLE TP SCH ×2 (08:39→20:28)
[2018-03-14] MEDS: CALCIUM CARBONATE 500 MG TABLET GT SCH ×2 (08:39→20:28)
[2018-03-14] MEDS: CALMOSEPTINE 113 GM OINTMENT TP SCH ×2 (08:39→20:28)
[2018-03-14] MEDS: DOCUSATE SODIUM 100 MG/10 ML LIQUID UDC GT SCH (08:39)
[2018-03-14 11:40] VITALS: BP 109/76
[2018-03-14 20:10] VITALS: BP 126/63
[2018-03-14] MEDS: ATORVASTATIN 10 MG TABLET GT SCH (20:28)
[2018-03-14] MEDS: MULTIVIT, IRON, MIN NO. 8, FA TABLET GT SCH (20:28)
[2018-03-14] MEDS: JEVITY 1.2 1000 ML LIQUID GT PRN (21:51)
[2018-03-15] MEDS: IPRATROPIUM BROMIDE 0.5 MG/2.5 ML NEBU NEB SCH ×6 (02:30→23:12)
[2018-03-15] MEDS: ALBUTEROL SULFATE 2.5 MG/3 ML NEBU NEB SCH ×6 (02:30→23:12)
[2018-03-15] MEDS: CHOLECALCIFEROL 1,000 UNIT TABLET GT SCH (05:54)
[2018-03-15] MEDS: BACLOFEN 10 MG TABLET GT SCH ×3 (05:54→21:46)
[2018-03-15] MEDS: BUDESONIDE 0.5 MG/2 ML NEBU NEB SCH ×2 (07:30→19:45)
[2018-03-15] MEDS: NUTRISOURCE FIBER 4 GM PACKET GT SCH ×2 (08:02→21:46)
[2018-03-15] MEDS: DOCUSATE SODIUM 100 MG/10 ML LIQUID UDC GT SCH (08:02)
[2018-03-15] MEDS: CALCIUM CARBONATE 500 MG TABLET GT SCH ×2 (08:02→21:46)
[2018-03-15] MEDS: HYDROGEN PEROXIDE 3% 118 ML BOTTLE TP SCH ×2 (08:02→21:46)
[2018-03-15] MEDS: CALMOSEPTINE 113 GM OINTMENT TP SCH ×2 (08:02→21:46)
[2018-03-15 11:18] VITALS: BP 123/95
[2018-03-15 20:01] VITALS: BP 115/71
[2018-03-15] MEDS: ATORVASTATIN 10 MG TABLET GT SCH (21:46)
[2018-03-16] MEDS: JEVITY 1.2 1000 ML LIQUID GT PRN (01:37)
[2018-03-16] MEDS: IPRATROPIUM BROMIDE 0.5 MG/2.5 ML NEBU NEB SCH ×6 (03:14→22:42)
[2018-03-16] MEDS: ALBUTEROL SULFATE 2.5 MG/3 ML NEBU NEB SCH ×6 (03:14→22:42)
[2018-03-16] MEDS: CHOLECALCIFEROL 1,000 UNIT TABLET GT SCH (05:43)
[2018-03-16] MEDS: BACLOFEN 10 MG TABLET GT SCH ×3 (05:43→21:40)
[2018-03-16] MEDS: BUDESONIDE 0.5 MG/2 ML NEBU NEB SCH ×2 (07:24→19:15)
[2018-03-16 08:11] VITALS: BP 135/84
[2018-03-16] MEDS: NUTRISOURCE FIBER 4 GM PACKET GT SCH ×2 (08:57→21:40)
[2018-03-16] MEDS: DOCUSATE SODIUM 100 MG/10 ML LIQUID UDC GT SCH (08:57)
[2018-03-16] MEDS: CALMOSEPTINE 113 GM OINTMENT TP SCH ×2 (08:58→21:40)
[2018-03-16] MEDS: CALCIUM CARBONATE 500 MG TABLET GT SCH ×2 (08:58→21:40)
[2018-03-16] MEDS: HYDROGEN PEROXIDE 3% 118 ML BOTTLE TP SCH ×2 (08:58→21:40)
[2018-03-16 19:58] VITALS: BP_SYST 111; BP_SYST 118; BP_DIAS 69; BP_DIAS 78
[2018-03-16] MEDS: ATORVASTATIN 10 MG TABLET GT SCH (21:40)
[2018-03-16] MEDS: MULTIVIT, IRON, MIN NO. 8, FA TABLET GT SCH (21:40)
[2018-03-17] MEDS: IPRATROPIUM BROMIDE 0.5 MG/2.5 ML NEBU NEB SCH ×6 (02:30→22:40)
[2018-03-17] MEDS: ALBUTEROL SULFATE 2.5 MG/3 ML NEBU NEB SCH ×6 (02:30→22:40)
[2018-03-17] MEDS: BACLOFEN 10 MG TABLET GT SCH ×3 (05:08→21:58)
[2018-03-17] MEDS: CHOLECALCIFEROL 1,000 UNIT TABLET GT SCH (05:36)
[2018-03-17] MEDS: BUDESONIDE 0.5 MG/2 ML NEBU NEB SCH ×2 (07:40→19:22)
[2018-03-17 08:00] VITALS: BP 114/80
[2018-03-17] MEDS: DOCUSATE SODIUM 100 MG/10 ML LIQUID UDC GT SCH (08:41)
[2018-03-17] MEDS: HYDROGEN PEROXIDE 3% 118 ML BOTTLE TP SCH ×2 (08:42→21:58)
[2018-03-17] MEDS: CALMOSEPTINE 113 GM OINTMENT TP SCH ×2 (08:42→21:58)
[2018-03-17] MEDS: NUTRISOURCE FIBER 4 GM PACKET GT SCH ×2 (08:42→21:58)
[2018-03-17] MEDS: CALCIUM CARBONATE 500 MG TABLET GT SCH ×2 (08:42→21:58)
[2018-03-17] MEDS: JEVITY 1.2 1000 ML LIQUID GT PRN (16:05)
[2018-03-17 20:36] VITALS: BP 139/58
[2018-03-17] MEDS: ATORVASTATIN 10 MG TABLET GT SCH (21:58)
[2018-03-18] MEDS: IPRATROPIUM BROMIDE 0.5 MG/2.5 ML NEBU NEB SCH ×6 (04:19→22:49)
[2018-03-18] MEDS: ALBUTEROL SULFATE 2.5 MG/3 ML NEBU NEB SCH ×6 (04:19→22:49)
[2018-03-18] MEDS: BACLOFEN 10 MG TABLET GT SCH ×3 (06:26→21:35)
[2018-03-18] MEDS: CHOLECALCIFEROL 1,000 UNIT TABLET GT SCH (06:26)
[2018-03-18] MEDS: BUDESONIDE 0.5 MG/2 ML NEBU NEB SCH ×2 (07:09→19:47)
[2018-03-18 08:00] VITALS: BP 137/79
[2018-03-18] MEDS: NUTRISOURCE FIBER 4 GM PACKET GT SCH ×2 (08:59→21:35)
[2018-03-18] MEDS: CALMOSEPTINE 113 GM OINTMENT TP SCH ×2 (08:59→21:35)
[2018-03-18] MEDS: CALCIUM CARBONATE 500 MG TABLET GT SCH ×2 (08:59→21:35)
[2018-03-18] MEDS: DOCUSATE SODIUM 100 MG/10 ML LIQUID UDC GT SCH (08:59)
[2018-03-18] MEDS: HYDROGEN PEROXIDE 3% 118 ML BOTTLE TP SCH ×2 (09:00→21:35)
[2018-03-18 21:06] VITALS: BP 110/62
[2018-03-18] MEDS: ATORVASTATIN 10 MG TABLET GT SCH (21:35)
[2018-03-18] MEDS: MULTIVIT, IRON, MIN NO. 8, FA TABLET GT SCH (21:35)
[2018-03-19] MEDS: JEVITY 1.2 1000 ML LIQUID GT PRN (01:01)
[2018-03-19] MEDS: IPRATROPIUM BROMIDE 0.5 MG/2.5 ML NEBU NEB SCH ×6 (02:37→22:40)
[2018-03-19] MEDS: ALBUTEROL SULFATE 2.5 MG/3 ML NEBU NEB SCH ×6 (02:37→22:40)
[2018-03-19] MEDS: CHOLECALCIFEROL 1,000 UNIT TABLET GT SCH (05:48)
[2018-03-19] MEDS: BACLOFEN 10 MG TABLET GT SCH ×3 (05:48→22:36)
[2018-03-19] MEDS: BUDESONIDE 0.5 MG/2 ML NEBU NEB SCH ×2 (06:58→19:25)
[2018-03-19 08:00] VITALS: BP 118/74
[2018-03-19] MEDS: NUTRISOURCE FIBER 4 GM PACKET GT SCH ×2 (08:56→20:45)
[2018-03-19] MEDS: DOCUSATE SODIUM 100 MG/10 ML LIQUID UDC GT SCH (08:56)
[2018-03-19] MEDS: CALCIUM CARBONATE 500 MG TABLET GT SCH ×2 (08:56→20:46)
[2018-03-19] MEDS: CALMOSEPTINE 113 GM OINTMENT TP SCH ×2 (08:56→20:46)
[2018-03-19] MEDS: HYDROGEN PEROXIDE 3% 118 ML BOTTLE TP SCH ×2 (08:56→20:46)
[2018-03-19] MEDS: ATORVASTATIN 10 MG TABLET GT SCH (20:44)
[2018-03-19 20:56] VITALS: BP 100/58
[2018-03-20] MEDS: IPRATROPIUM BROMIDE 0.5 MG/2.5 ML NEBU NEB SCH ×6 (02:54→22:30)
[2018-03-20] MEDS: ALBUTEROL SULFATE 2.5 MG/3 ML NEBU NEB SCH ×6 (02:54→22:30)
[2018-03-20] MEDS: CHOLECALCIFEROL 1,000 UNIT TABLET GT SCH (05:56)
[2018-03-20] MEDS: BACLOFEN 10 MG TABLET GT SCH ×3 (05:56→22:10)
[2018-03-20] MEDS: BUDESONIDE 0.5 MG/2 ML NEBU NEB SCH ×2 (07:01→19:44)
[2018-03-20] MEDS: JEVITY 1.2 1000 ML LIQUID GT PRN (07:03)
[2018-03-20 08:00] VITALS: BP 126/69
[2018-03-20] MEDS: DOCUSATE SODIUM 100 MG/10 ML LIQUID UDC GT SCH (08:49)
[2018-03-20] MEDS: HYDROGEN PEROXIDE 3% 118 ML BOTTLE TP SCH ×2 (08:49→20:51)
[2018-03-20] MEDS: NUTRISOURCE FIBER 4 GM PACKET GT SCH ×2 (08:49→20:51)
[2018-03-20] MEDS: CALCIUM CARBONATE 500 MG TABLET GT SCH ×2 (08:49→20:50)
[2018-03-20] MEDS: CALMOSEPTINE 113 GM OINTMENT TP SCH ×2 (08:49→20:51)
--- NOTE | 2018-03-20 13:00 | NUR ---
seen and examined by papa garcia,aware pt r upper leg is swollen ,warm to touch with slight redness,with new orders noted.to start keflex 500 mg via gt every 8 hours for 10 days.
[2018-03-20] MEDS ORDERED: CEphaleXIN 500 MG CAPSULE GT ONE (16:45)
--- NOTE | 2018-03-20 19:08 | NUR ---
ON ATB THERAPY FOR R UPPER LEG CELLULITIS,NO ADVERSE REACTION NOTED.SPOKE TO ALEXA ALFORD'S SISTER AND MADE AWARE OF NEW ORDERS,SHE AGREED WITH THE PLAN OF CARE.
[2018-03-20 20:48] VITALS: BP 107/69
[2018-03-20] MEDS: ATORVASTATIN 10 MG TABLET GT SCH (20:50)
[2018-03-20] MEDS: MULTIVIT, IRON, MIN NO. 8, FA TABLET GT SCH (20:51)
[2018-03-20] MEDS: CEphaleXIN 500 MG CAPSULE GT SCH (22:00)
[2018-03-21] MEDS: JEVITY 1.2 1000 ML LIQUID GT PRN (02:12)
[2018-03-21] MEDS: ALBUTEROL SULFATE 2.5 MG/3 ML NEBU NEB SCH ×6 (02:33→22:30)
[2018-03-21] MEDS: IPRATROPIUM BROMIDE 0.5 MG/2.5 ML NEBU NEB SCH ×6 (02:33→22:30)
[2018-03-21] MEDS: CEphaleXIN 500 MG CAPSULE GT SCH ×3 (05:11→21:49)
[2018-03-21] MEDS: BACLOFEN 10 MG TABLET GT SCH ×3 (05:11→21:49)
[2018-03-21] MEDS: CHOLECALCIFEROL 1,000 UNIT TABLET GT SCH (06:30)
[2018-03-21 08:00] VITALS: BP 112/79
[2018-03-21] MEDS: BUDESONIDE 0.5 MG/2 ML NEBU NEB SCH ×2 (08:16→19:19)
[2018-03-21] MEDS: DOCUSATE SODIUM 100 MG/10 ML LIQUID UDC GT SCH (08:54)
[2018-03-21] MEDS: NUTRISOURCE FIBER 4 GM PACKET GT SCH ×2 (08:57→21:49)
[2018-03-21] MEDS: CALCIUM CARBONATE 500 MG TABLET GT SCH ×2 (08:58→21:49)
[2018-03-21] MEDS: CALMOSEPTINE 113 GM OINTMENT TP SCH ×2 (08:58→21:49)
[2018-03-21] MEDS: HYDROGEN PEROXIDE 3% 118 ML BOTTLE TP SCH ×2 (08:58→21:49)
--- NOTE | 2018-03-21 17:49 | NUR ---
SEEN BY DR. ALBERTO JETER.
[2018-03-21 20:00] VITALS: BP 120/72
[2018-03-21] MEDS: ATORVASTATIN 10 MG TABLET GT SCH (21:49)
[2018-03-22] MEDS: ALBUTEROL SULFATE 2.5 MG/3 ML NEBU NEB SCH ×6 (02:30→23:34)
[2018-03-22] MEDS: IPRATROPIUM BROMIDE 0.5 MG/2.5 ML NEBU NEB SCH ×6 (02:30→23:34)
[2018-03-22] MEDS: BACLOFEN 10 MG TABLET GT SCH ×3 (06:49→21:17)
[2018-03-22] MEDS: CEphaleXIN 500 MG CAPSULE GT SCH ×3 (06:49→21:17)
[2018-03-22] MEDS: CHOLECALCIFEROL 1,000 UNIT TABLET GT SCH (06:50)
[2018-03-22] MEDS: BUDESONIDE 0.5 MG/2 ML NEBU NEB SCH ×2 (07:52→19:08)
[2018-03-22 08:00] VITALS: BP 108/61
[2018-03-22] MEDS: NUTRISOURCE FIBER 4 GM PACKET GT SCH ×2 (08:56→21:17)
[2018-03-22] MEDS: CALCIUM CARBONATE 500 MG TABLET GT SCH ×2 (08:56→21:17)
[2018-03-22] MEDS: DOCUSATE SODIUM 100 MG/10 ML LIQUID UDC GT SCH (08:56)
[2018-03-22] MEDS: CALMOSEPTINE 113 GM OINTMENT TP SCH ×2 (08:57→21:17)
[2018-03-22] MEDS: HYDROGEN PEROXIDE 3% 118 ML BOTTLE TP SCH ×2 (08:57→21:17)
[2018-03-22 20:00] VITALS: BP 120/82
[2018-03-22] MEDS: MULTIVIT, IRON, MIN NO. 8, FA TABLET GT SCH (21:17)
[2018-03-22] MEDS: ATORVASTATIN 10 MG TABLET GT SCH (21:17)
[2018-03-23] MEDS: ALBUTEROL SULFATE 2.5 MG/3 ML NEBU NEB SCH ×6 (03:35→23:26)
[2018-03-23] MEDS: IPRATROPIUM BROMIDE 0.5 MG/2.5 ML NEBU NEB SCH ×6 (03:35→23:27)
[2018-03-23] MEDS: BACLOFEN 10 MG TABLET GT SCH ×3 (05:41→21:26)
[2018-03-23] MEDS: CEphaleXIN 500 MG CAPSULE GT SCH ×3 (05:41→21:26)
[2018-03-23] MEDS: JEVITY 1.2 1000 ML LIQUID GT PRN (06:36)
[2018-03-23 08:08] VITALS: BP 129/75
[2018-03-23] MEDS: BUDESONIDE 0.5 MG/2 ML NEBU NEB SCH ×2 (08:21→18:59)
[2018-03-23] MEDS: NUTRISOURCE FIBER 4 GM PACKET GT SCH ×2 (08:31→20:34)
[2018-03-23] MEDS: DOCUSATE SODIUM 100 MG/10 ML LIQUID UDC GT SCH (08:31)
[2018-03-23] MEDS: CALCIUM CARBONATE 500 MG TABLET GT SCH ×2 (08:32→20:34)
[2018-03-23] MEDS: HYDROGEN PEROXIDE 3% 118 ML BOTTLE TP SCH ×2 (08:33→20:34)
[2018-03-23] MEDS: CALMOSEPTINE 113 GM OINTMENT TP SCH ×2 (08:33→20:34)
[2018-03-23 20:00] VITALS: BP 123/73
[2018-03-23] MEDS: ATORVASTATIN 10 MG TABLET GT SCH (20:34)
[2018-03-24] MEDS: ALBUTEROL SULFATE 2.5 MG/3 ML NEBU NEB SCH ×6 (03:05→22:30)
[2018-03-24] MEDS: IPRATROPIUM BROMIDE 0.5 MG/2.5 ML NEBU NEB SCH ×6 (03:05→22:30)
[2018-03-24] MEDS: CEphaleXIN 500 MG CAPSULE GT SCH ×3 (05:40→21:17)
[2018-03-24] MEDS: CHOLECALCIFEROL 1,000 UNIT TABLET GT SCH (05:41)
[2018-03-24] MEDS: BACLOFEN 10 MG TABLET GT SCH ×3 (05:41→21:18)
[2018-03-24] MEDS: JEVITY 1.2 1000 ML LIQUID GT PRN (05:41)
[2018-03-24] MEDS: BUDESONIDE 0.5 MG/2 ML NEBU NEB SCH ×2 (06:50→19:22)
[2018-03-24] MEDS: HYDROGEN PEROXIDE 3% 118 ML BOTTLE TP SCH ×2 (08:00→21:17)
[2018-03-24] MEDS: DOCUSATE SODIUM 100 MG/10 ML LIQUID UDC GT SCH (08:00)
[2018-03-24] MEDS: NUTRISOURCE FIBER 4 GM PACKET GT SCH ×2 (08:00→21:17)
[2018-03-24] MEDS: CALMOSEPTINE 113 GM OINTMENT TP SCH ×2 (08:00→21:17)
[2018-03-24] MEDS: CALCIUM CARBONATE 500 MG TABLET GT SCH ×2 (08:00→21:17)
[2018-03-24 08:16] VITALS: BP 121/75
[2018-03-24] MEDS: MULTIVIT, IRON, MIN NO. 8, FA TABLET GT SCH (21:17)
[2018-03-24] MEDS: ATORVASTATIN 10 MG TABLET GT SCH (21:17)
[2018-03-24 22:00] VITALS: BP 113/73
[2018-03-25] MEDS: IPRATROPIUM BROMIDE 0.5 MG/2.5 ML NEBU NEB SCH ×6 (02:48→22:30)
[2018-03-25] MEDS: ALBUTEROL SULFATE 2.5 MG/3 ML NEBU NEB SCH ×6 (02:48→22:30)
[2018-03-25] MEDS: JEVITY 1.2 1000 ML LIQUID GT PRN (03:41)
[2018-03-25] MEDS: CHOLECALCIFEROL 1,000 UNIT TABLET GT SCH (05:52)
[2018-03-25] MEDS: CEphaleXIN 500 MG CAPSULE GT SCH ×3 (05:52→22:24)
[2018-03-25] MEDS: BACLOFEN 10 MG TABLET GT SCH ×3 (05:52→22:24)
[2018-03-25] MEDS: BUDESONIDE 0.5 MG/2 ML NEBU NEB SCH ×2 (07:10→19:09)
[2018-03-25 08:00] VITALS: BP 121/76
[2018-03-25] MEDS: DOCUSATE SODIUM 100 MG/10 ML LIQUID UDC GT SCH (08:43)
[2018-03-25] MEDS: NUTRISOURCE FIBER 4 GM PACKET GT SCH ×2 (08:43→21:00)
[2018-03-25] MEDS: HYDROGEN PEROXIDE 3% 118 ML BOTTLE TP SCH ×2 (08:43→21:00)
[2018-03-25] MEDS: CALMOSEPTINE 113 GM OINTMENT TP SCH ×2 (08:43→21:00)
[2018-03-25] MEDS: CALCIUM CARBONATE 500 MG TABLET GT SCH ×2 (08:43→21:00)
--- NOTE | 2018-03-25 15:46 | NUR ---
SEEN BY HANSEL JETER.
[2018-03-25 20:25] VITALS: BP 117/81
[2018-03-25] MEDS: ATORVASTATIN 10 MG TABLET GT SCH (21:00)
[2018-03-26] MEDS: JEVITY 1.2 1000 ML LIQUID GT PRN (02:34)
[2018-03-26] MEDS: ALBUTEROL SULFATE 2.5 MG/3 ML NEBU NEB SCH ×6 (03:01→22:59)
[2018-03-26] MEDS: IPRATROPIUM BROMIDE 0.5 MG/2.5 ML NEBU NEB SCH ×6 (03:01→22:59)
[2018-03-26] MEDS: BACLOFEN 10 MG TABLET GT SCH ×3 (05:07→22:07)
[2018-03-26] MEDS: CEphaleXIN 500 MG CAPSULE GT SCH ×3 (05:07→22:07)
[2018-03-26] MEDS: CHOLECALCIFEROL 1,000 UNIT TABLET GT SCH (05:35)
[2018-03-26] MEDS: BUDESONIDE 0.5 MG/2 ML NEBU NEB SCH ×2 (07:05→19:13)
[2018-03-26 08:00] VITALS: BP 103/67
[2018-03-26] MEDS: HYDROGEN PEROXIDE 3% 118 ML BOTTLE TP SCH ×2 (09:00→21:00)
[2018-03-26] MEDS: DOCUSATE SODIUM 100 MG/10 ML LIQUID UDC GT SCH (09:00)
[2018-03-26] MEDS: CALCIUM CARBONATE 500 MG TABLET GT SCH ×2 (09:00→21:00)
[2018-03-26] MEDS: NUTRISOURCE FIBER 4 GM PACKET GT SCH ×2 (09:00→21:00)
[2018-03-26] MEDS: CALMOSEPTINE 113 GM OINTMENT TP SCH ×2 (09:00→21:00)
[2018-03-26 20:00] VITALS: BP 106/76
[2018-03-26] MEDS: ATORVASTATIN 10 MG TABLET GT SCH (21:00)
[2018-03-26] MEDS: MULTIVIT, IRON, MIN NO. 8, FA TABLET GT SCH (21:00)
[2018-03-27] MEDS: ALBUTEROL SULFATE 2.5 MG/3 ML NEBU NEB SCH ×6 (03:33→23:13)
[2018-03-27] MEDS: IPRATROPIUM BROMIDE 0.5 MG/2.5 ML NEBU NEB SCH ×6 (03:33→23:13)
--- NOTE | 2018-03-27 04:06 | NUR ---
Remains on Keflex via gt for right thigh cellulitis, no adverse reactions noted, good skin care done, no signs of any discomfort noted, kept clean and comfortable. Addendum: 03/27/18 at 0706 by JORDI LITTLE RN no bleeding noted from trach when suctioning, no respiratory distress noted, will continue monitor.
[2018-03-27] MEDS: CHOLECALCIFEROL 1,000 UNIT TABLET GT SCH (05:36)
[2018-03-27] MEDS: CEphaleXIN 500 MG CAPSULE GT SCH ×3 (05:36→22:56)
[2018-03-27] MEDS: BACLOFEN 10 MG TABLET GT SCH ×3 (05:36→22:56)
[2018-03-27] MEDS: JEVITY 1.2 1000 ML LIQUID GT PRN (06:00)
[2018-03-27 08:00] VITALS: BP 106/64
[2018-03-27] MEDS: BUDESONIDE 0.5 MG/2 ML NEBU NEB SCH ×2 (08:10→20:21)
[2018-03-27] MEDS: CALCIUM CARBONATE 500 MG TABLET GT SCH ×2 (09:01→20:56)
[2018-03-27] MEDS: CALMOSEPTINE 113 GM OINTMENT TP SCH ×2 (09:01→20:56)
[2018-03-27] MEDS: HYDROGEN PEROXIDE 3% 118 ML BOTTLE TP SCH ×2 (09:01→20:56)
[2018-03-27] MEDS: NUTRISOURCE FIBER 4 GM PACKET GT SCH ×2 (09:01→20:56)
[2018-03-27] MEDS: DOCUSATE SODIUM 100 MG/10 ML LIQUID UDC GT SCH (09:01)
--- NOTE | 2018-03-27 16:00 | NUR ---
Seen and examined by Myrtle garcia,no new orders.
--- NOTE | 2018-03-27 18:00 | NUR ---
NOTED SOME BLOOD STREAKS SECRETIONS,WILL OBSERVE CLOSELY. Addendum: 03/27/18 at 1956 by FIONA ARORA RN LATE ENTRY FOR 04/26/18
--- NOTE | 2018-03-27 19:57 | NUR ---
No bloody secretions noted today,continue on atb therapy for R thigh cellulitis,no adverse reaction noted.
[2018-03-27 20:00] VITALS: BP 133/81
[2018-03-27] MEDS: ATORVASTATIN 10 MG TABLET GT SCH (20:55)
--- NOTE | 2018-03-28 00:16 | NUR ---
Still on Keflex via gt for Right thigh cellulitis, no adverse reactions, good skin care done, right thigh still looks swollen, elevated on pillows, handled very gently, kept clean and comfortable.
[2018-03-28] MEDS: ALBUTEROL SULFATE 2.5 MG/3 ML NEBU NEB SCH ×6 (03:20→22:40)
[2018-03-28] MEDS: IPRATROPIUM BROMIDE 0.5 MG/2.5 ML NEBU NEB SCH ×6 (03:20→22:40)
[2018-03-28] MEDS: BACLOFEN 10 MG TABLET GT SCH ×3 (05:44→21:14)
[2018-03-28] MEDS: CEphaleXIN 500 MG CAPSULE GT SCH ×3 (05:44→21:14)
[2018-03-28] MEDS: CHOLECALCIFEROL 1,000 UNIT TABLET GT SCH (05:44)
[2018-03-28] MEDS: JEVITY 1.2 1000 ML LIQUID GT PRN (06:00)
[2018-03-28] MEDS: BUDESONIDE 0.5 MG/2 ML NEBU NEB SCH ×2 (07:07→20:22)
[2018-03-28 08:00] VITALS: BP 120/65
[2018-03-28] MEDS: CALCIUM CARBONATE 500 MG TABLET GT SCH ×2 (08:01→21:13)
[2018-03-28] MEDS: HYDROGEN PEROXIDE 3% 118 ML BOTTLE TP SCH ×2 (08:01→21:14)
[2018-03-28] MEDS: NUTRISOURCE FIBER 4 GM PACKET GT SCH ×2 (08:01→21:12)
[2018-03-28] MEDS: CALMOSEPTINE 113 GM OINTMENT TP SCH ×2 (08:01→21:14)
[2018-03-28] MEDS: DOCUSATE SODIUM 100 MG/10 ML LIQUID UDC GT SCH (08:01)
[2018-03-28 20:00] VITALS: BP 134/83
[2018-03-28] MEDS: ATORVASTATIN 10 MG TABLET GT SCH (21:12)
[2018-03-28] MEDS: MULTIVIT, IRON, MIN NO. 8, FA TABLET GT SCH (21:13)
--- NOTE | 2018-03-28 23:04 | NUR ---
still on Keflex for right thigh cellulitis, no adverse reactions noted, right thigh still swollen, elevated on pillows, handled very gently, no signs of pain or discomfort noted, kept clean and comfortable.
[2018-03-29] MEDS: ALBUTEROL SULFATE 2.5 MG/3 ML NEBU NEB SCH ×6 (03:05→22:55)
[2018-03-29] MEDS: IPRATROPIUM BROMIDE 0.5 MG/2.5 ML NEBU NEB SCH ×6 (03:05→22:55)
[2018-03-29] MEDS: CHOLECALCIFEROL 1,000 UNIT TABLET GT SCH (06:27)
[2018-03-29] MEDS: JEVITY 1.2 1000 ML LIQUID GT PRN (06:27)
[2018-03-29] MEDS: CEphaleXIN 500 MG CAPSULE GT SCH ×3 (06:27→21:26)
[2018-03-29] MEDS: BACLOFEN 10 MG TABLET GT SCH ×3 (06:27→21:26)
[2018-03-29] MEDS: BUDESONIDE 0.5 MG/2 ML NEBU NEB SCH ×2 (07:19→18:50)
[2018-03-29 08:05] VITALS: BP 139/89
[2018-03-29] MEDS: HYDROGEN PEROXIDE 3% 118 ML BOTTLE TP SCH ×2 (08:19→21:14)
[2018-03-29] MEDS: DOCUSATE SODIUM 100 MG/10 ML LIQUID UDC GT SCH (08:19)
[2018-03-29] MEDS: NUTRISOURCE FIBER 4 GM PACKET GT SCH ×2 (08:19→21:13)
[2018-03-29] MEDS: CALCIUM CARBONATE 500 MG TABLET GT SCH ×2 (08:19→21:25)
[2018-03-29] MEDS: CALMOSEPTINE 113 GM OINTMENT TP SCH ×2 (08:19→21:14)
[2018-03-29 20:24] VITALS: BP 125/78
[2018-03-29] MEDS: ATORVASTATIN 10 MG TABLET GT SCH (21:26)
[2018-03-30] MEDS: IPRATROPIUM BROMIDE 0.5 MG/2.5 ML NEBU NEB SCH ×6 (03:11→22:45)
[2018-03-30] MEDS: ALBUTEROL SULFATE 2.5 MG/3 ML NEBU NEB SCH ×6 (03:11→22:45)
[2018-03-30] MEDS: BACLOFEN 10 MG TABLET GT SCH ×3 (05:35→22:09)
[2018-03-30] MEDS: CHOLECALCIFEROL 1,000 UNIT TABLET GT SCH (05:35)
[2018-03-30] MEDS: CEphaleXIN 500 MG CAPSULE GT SCH (05:35)
[2018-03-30] MEDS: BUDESONIDE 0.5 MG/2 ML NEBU NEB SCH ×2 (08:15→19:12)
[2018-03-30] MEDS: NUTRISOURCE FIBER 4 GM PACKET GT SCH ×2 (08:54→21:00)
[2018-03-30] MEDS: CALCIUM CARBONATE 500 MG TABLET GT SCH ×2 (08:54→21:00)
[2018-03-30] MEDS: CALMOSEPTINE 113 GM OINTMENT TP SCH ×2 (08:54→21:00)
[2018-03-30] MEDS: HYDROGEN PEROXIDE 3% 118 ML BOTTLE TP SCH ×2 (08:54→21:00)
[2018-03-30] MEDS: DOCUSATE SODIUM 100 MG/10 ML LIQUID UDC GT SCH (08:54)
[2018-03-30 11:53] VITALS: BP 132/80
[2018-03-30] MEDS: JEVITY 1.2 1000 ML LIQUID GT PRN (12:06)
[2018-03-30] MEDS: BISACODYL 10 MG SUPP.RECT RC PRN (18:43)
[2018-03-30 20:09] VITALS: BP 128/69
[2018-03-30] MEDS: MULTIVIT, IRON, MIN NO. 8, FA TABLET GT SCH (21:00)
[2018-03-30] MEDS: ATORVASTATIN 10 MG TABLET GT SCH (21:00)
--- NOTE | 2018-03-30 22:15 | NUR ---
daniel cameron n.p. was in,no new orders.
[2018-03-31] MEDS: IPRATROPIUM BROMIDE 0.5 MG/2.5 ML NEBU NEB SCH ×6 (02:32→23:10)
[2018-03-31] MEDS: ALBUTEROL SULFATE 2.5 MG/3 ML NEBU NEB SCH ×6 (02:32→23:10)
[2018-03-31] MEDS: BACLOFEN 10 MG TABLET GT SCH ×3 (05:05→21:14)
[2018-03-31] MEDS: CHOLECALCIFEROL 1,000 UNIT TABLET GT SCH (05:35)
[2018-03-31] MEDS: BUDESONIDE 0.5 MG/2 ML NEBU NEB SCH ×2 (06:50→19:19)
[2018-03-31 08:00] VITALS: BP 124/81
[2018-03-31] MEDS: CALCIUM CARBONATE 500 MG TABLET GT SCH ×2 (08:30→21:13)
[2018-03-31] MEDS: NUTRISOURCE FIBER 4 GM PACKET GT SCH ×2 (08:30→21:13)
[2018-03-31] MEDS: DOCUSATE SODIUM 100 MG/10 ML LIQUID UDC GT SCH (08:30)
[2018-03-31] MEDS: CALMOSEPTINE 113 GM OINTMENT TP SCH ×2 (08:30→21:14)
[2018-03-31] MEDS: HYDROGEN PEROXIDE 3% 118 ML BOTTLE TP SCH ×2 (08:30→21:14)
--- NOTE | 2018-03-31 18:18 | NUR ---
New orders noted for gt site redness.carried out,noted a slight discharge on gt site,blackish color.will observe.
[2018-03-31 20:26] VITALS: BP 117/68
[2018-03-31] MEDS: ATORVASTATIN 10 MG TABLET GT SCH (21:13)
[2018-03-31] MEDS: COD LIVER OIL/ZINC OXIDE OINT 113 GM TUBE TP SCH (21:14)
[2018-03-31] MEDS: JEVITY 1.2 1000 ML LIQUID GT PRN (23:36)
[2018-04-01] MEDS: IPRATROPIUM BROMIDE 0.5 MG/2.5 ML NEBU NEB SCH ×6 (02:53→22:40)
[2018-04-01] MEDS: ALBUTEROL SULFATE 2.5 MG/3 ML NEBU NEB SCH ×6 (02:53→22:40)
[2018-04-01] MEDS: CHOLECALCIFEROL 1,000 UNIT TABLET GT SCH (05:41)
[2018-04-01] MEDS: BACLOFEN 10 MG TABLET GT SCH ×3 (05:41→21:20)
[2018-04-01] MEDS: BUDESONIDE 0.5 MG/2 ML NEBU NEB SCH ×2 (07:09→19:13)
[2018-04-01 08:00] VITALS: BP 130/84
[2018-04-01] MEDS: HYDROGEN PEROXIDE 3% 118 ML BOTTLE TP SCH ×2 (08:29→21:20)
[2018-04-01] MEDS: CALCIUM CARBONATE 500 MG TABLET GT SCH ×2 (08:29→21:20)
[2018-04-01] MEDS: NUTRISOURCE FIBER 4 GM PACKET GT SCH ×2 (08:29→21:20)
[2018-04-01] MEDS: COD LIVER OIL/ZINC OXIDE OINT 113 GM TUBE TP SCH ×2 (08:29→21:20)
[2018-04-01] MEDS: CALMOSEPTINE 113 GM OINTMENT TP SCH ×2 (08:29→21:20)
[2018-04-01] MEDS: DOCUSATE SODIUM 100 MG/10 ML LIQUID UDC GT SCH (08:29)
[2018-04-01 20:37] VITALS: BP 140/89
[2018-04-01 20:39] VITALS: BP 114/60
[2018-04-01] MEDS: MULTIVIT, IRON, MIN NO. 8, FA TABLET GT SCH (21:20)
[2018-04-01] MEDS: ATORVASTATIN 10 MG TABLET GT SCH (21:20)
[2018-04-02] MEDS: JEVITY 1.2 1000 ML LIQUID GT PRN (00:58)
[2018-04-02] MEDS: ALBUTEROL SULFATE 2.5 MG/3 ML NEBU NEB SCH ×6 (03:13→22:38)
[2018-04-02] MEDS: IPRATROPIUM BROMIDE 0.5 MG/2.5 ML NEBU NEB SCH ×6 (03:13→22:38)
[2018-04-02] MEDS: BACLOFEN 10 MG TABLET GT SCH ×3 (05:41→21:38)
[2018-04-02] MEDS: CHOLECALCIFEROL 1,000 UNIT TABLET GT SCH (05:41)
[2018-04-02] MEDS: BUDESONIDE 0.5 MG/2 ML NEBU NEB SCH ×2 (07:00→19:55)
[2018-04-02 08:00] VITALS: BP 121/82
[2018-04-02] MEDS: DOCUSATE SODIUM 100 MG/10 ML LIQUID UDC GT SCH (08:49)
[2018-04-02] MEDS: NUTRISOURCE FIBER 4 GM PACKET GT SCH ×2 (08:49→21:38)
[2018-04-02] MEDS: CALCIUM CARBONATE 500 MG TABLET GT SCH ×2 (08:49→21:38)
[2018-04-02] MEDS: CALMOSEPTINE 113 GM OINTMENT TP SCH ×2 (08:50→21:38)
[2018-04-02] MEDS: COD LIVER OIL/ZINC OXIDE OINT 113 GM TUBE TP SCH ×2 (08:51→21:38)
[2018-04-02] MEDS: HYDROGEN PEROXIDE 3% 118 ML BOTTLE TP SCH ×2 (08:51→21:38)
[2018-04-02 20:29] VITALS: BP 135/89
[2018-04-02] MEDS: ATORVASTATIN 10 MG TABLET GT SCH (21:37)
[2018-04-03] MEDS: ALBUTEROL SULFATE 2.5 MG/3 ML NEBU NEB SCH ×6 (03:01→23:11)
[2018-04-03] MEDS: IPRATROPIUM BROMIDE 0.5 MG/2.5 ML NEBU NEB SCH ×6 (03:01→23:11)
[2018-04-03] MEDS: BACLOFEN 10 MG TABLET GT SCH ×3 (05:50→22:05)
[2018-04-03] MEDS: CHOLECALCIFEROL 1,000 UNIT TABLET GT SCH (05:50)
[2018-04-03] MEDS: BUDESONIDE 0.5 MG/2 ML NEBU NEB SCH ×2 (07:12→20:05)
[2018-04-03 08:00] VITALS: BP 118/81
[2018-04-03] MEDS: CALMOSEPTINE 113 GM OINTMENT TP SCH ×2 (08:06→21:27)
[2018-04-03] MEDS: COD LIVER OIL/ZINC OXIDE OINT 113 GM TUBE TP SCH ×2 (08:06→21:27)
[2018-04-03] MEDS: DOCUSATE SODIUM 100 MG/10 ML LIQUID UDC GT SCH (08:06)
[2018-04-03] MEDS: NUTRISOURCE FIBER 4 GM PACKET GT SCH ×2 (08:06→21:27)
[2018-04-03] MEDS: HYDROGEN PEROXIDE 3% 118 ML BOTTLE TP SCH ×2 (08:06→21:27)
[2018-04-03] MEDS: CALCIUM CARBONATE 500 MG TABLET GT SCH ×2 (08:06→21:27)
[2018-04-03 20:00] VITALS: BP 119/74
[2018-04-03] MEDS: ATORVASTATIN 10 MG TABLET GT SCH (21:27)
[2018-04-03] MEDS: MULTIVIT, IRON, MIN NO. 8, FA TABLET GT SCH (21:27)
[2018-04-04] MEDS: JEVITY 1.2 1000 ML LIQUID GT PRN (01:30)
[2018-04-04] MEDS: ALBUTEROL SULFATE 2.5 MG/3 ML NEBU NEB SCH ×6 (03:11→23:00)
[2018-04-04] MEDS: IPRATROPIUM BROMIDE 0.5 MG/2.5 ML NEBU NEB SCH ×6 (03:11→23:00)
[2018-04-04] MEDS: CHOLECALCIFEROL 1,000 UNIT TABLET GT SCH (05:06)
[2018-04-04] MEDS: BACLOFEN 10 MG TABLET GT SCH ×3 (05:06→21:10)
[2018-04-04 08:00] VITALS: BP 108/64
[2018-04-04] MEDS: BUDESONIDE 0.5 MG/2 ML NEBU NEB SCH ×2 (08:03→20:02)
[2018-04-04] MEDS: CALCIUM CARBONATE 500 MG TABLET GT SCH ×2 (08:13→21:10)
[2018-04-04] MEDS: NUTRISOURCE FIBER 4 GM PACKET GT SCH ×2 (08:13→21:10)
[2018-04-04] MEDS: DOCUSATE SODIUM 100 MG/10 ML LIQUID UDC GT SCH (08:13)
[2018-04-04] MEDS: COD LIVER OIL/ZINC OXIDE OINT 113 GM TUBE TP SCH ×2 (08:20→21:10)
[2018-04-04] MEDS: HYDROGEN PEROXIDE 3% 118 ML BOTTLE TP SCH ×2 (08:20→21:10)
[2018-04-04] MEDS: CALMOSEPTINE 113 GM OINTMENT TP SCH ×2 (08:20→21:10)
[2018-04-04 21:00] VITALS: BP 133/64
[2018-04-04] MEDS: ATORVASTATIN 10 MG TABLET GT SCH (21:10)
[2018-04-05] MEDS: JEVITY 1.2 1000 ML LIQUID GT PRN (01:44)
[2018-04-05] MEDS: IPRATROPIUM BROMIDE 0.5 MG/2.5 ML NEBU NEB SCH ×6 (03:29→23:08)
[2018-04-05] MEDS: ALBUTEROL SULFATE 2.5 MG/3 ML NEBU NEB SCH ×6 (03:29→23:08)
[2018-04-05] MEDS: CHOLECALCIFEROL 1,000 UNIT TABLET GT SCH (05:32)
[2018-04-05] MEDS: BACLOFEN 10 MG TABLET GT SCH ×3 (05:32→21:02)
[2018-04-05] MEDS: BUDESONIDE 0.5 MG/2 ML NEBU NEB SCH ×2 (07:05→18:47)
[2018-04-05] MEDS: NUTRISOURCE FIBER 4 GM PACKET GT SCH ×2 (08:46→20:56)
[2018-04-05] MEDS: HYDROGEN PEROXIDE 3% 118 ML BOTTLE TP SCH ×2 (08:46→20:56)
[2018-04-05] MEDS: DOCUSATE SODIUM 100 MG/10 ML LIQUID UDC GT SCH (08:46)
[2018-04-05] MEDS: CALCIUM CARBONATE 500 MG TABLET GT SCH ×2 (08:46→20:56)
[2018-04-05] MEDS: CALMOSEPTINE 113 GM OINTMENT TP SCH ×2 (08:46→20:56)
[2018-04-05] MEDS: COD LIVER OIL/ZINC OXIDE OINT 113 GM TUBE TP SCH ×2 (08:46→20:56)
[2018-04-05 16:49] VITALS: BP 103/57
[2018-04-05] MEDS: ATORVASTATIN 10 MG TABLET GT SCH (20:56)
[2018-04-05] MEDS: MULTIVIT, IRON, MIN NO. 8, FA TABLET GT SCH (20:56)
[2018-04-05 22:32] VITALS: BP 130/84
[2018-04-06] MEDS: JEVITY 1.2 1000 ML LIQUID GT PRN (01:43)
[2018-04-06] MEDS: ALBUTEROL SULFATE 2.5 MG/3 ML NEBU NEB SCH ×6 (02:30→22:41)
[2018-04-06] MEDS: IPRATROPIUM BROMIDE 0.5 MG/2.5 ML NEBU NEB SCH ×6 (02:30→22:41)
[2018-04-06] MEDS: BACLOFEN 10 MG TABLET GT SCH ×3 (05:46→21:27)
[2018-04-06] MEDS: CHOLECALCIFEROL 1,000 UNIT TABLET GT SCH (05:46)
[2018-04-06] MEDS: BUDESONIDE 0.5 MG/2 ML NEBU NEB SCH ×2 (07:05→19:18)
[2018-04-06] MEDS: HYDROGEN PEROXIDE 3% 118 ML BOTTLE TP SCH ×2 (09:00→20:46)
[2018-04-06] MEDS: CALCIUM CARBONATE 500 MG TABLET GT SCH ×2 (09:59→20:46)
[2018-04-06] MEDS: DOCUSATE SODIUM 100 MG/10 ML LIQUID UDC GT SCH (09:59)
[2018-04-06] MEDS: CALMOSEPTINE 113 GM OINTMENT TP SCH ×2 (09:59→20:46)
[2018-04-06] MEDS: NUTRISOURCE FIBER 4 GM PACKET GT SCH ×2 (09:59→20:46)
[2018-04-06] MEDS: COD LIVER OIL/ZINC OXIDE OINT 113 GM TUBE TP SCH ×2 (10:00→20:46)
[2018-04-06 11:00] VITALS: BP 112/60
--- NOTE | 2018-04-06 17:00 | NUR ---
SEEN BY DR. HICKS (PODIATRIST0 AND NNO.
[2018-04-06] MEDS: ATORVASTATIN 10 MG TABLET GT SCH (20:46)
[2018-04-06 23:03] VITALS: BP 111/74
[2018-04-07] MEDS: JEVITY 1.2 1000 ML LIQUID GT PRN (00:17)
[2018-04-07] MEDS: IPRATROPIUM BROMIDE 0.5 MG/2.5 ML NEBU NEB SCH ×6 (02:57→22:40)
[2018-04-07] MEDS: ALBUTEROL SULFATE 2.5 MG/3 ML NEBU NEB SCH ×6 (02:57→22:40)
[2018-04-07] MEDS: CHOLECALCIFEROL 1,000 UNIT TABLET GT SCH (06:05)
[2018-04-07] MEDS: BACLOFEN 10 MG TABLET GT SCH ×3 (06:05→21:15)
[2018-04-07] MEDS: BUDESONIDE 0.5 MG/2 ML NEBU NEB SCH ×2 (06:56→19:08)
[2018-04-07] MEDS: HYDROGEN PEROXIDE 3% 118 ML BOTTLE TP SCH ×2 (08:01→21:15)
[2018-04-07] MEDS: CALMOSEPTINE 113 GM OINTMENT TP SCH ×2 (08:01→21:15)
[2018-04-07] MEDS: NUTRISOURCE FIBER 4 GM PACKET GT SCH ×2 (08:01→21:13)
[2018-04-07] MEDS: CALCIUM CARBONATE 500 MG TABLET GT SCH ×2 (08:01→21:13)
[2018-04-07] MEDS: DOCUSATE SODIUM 100 MG/10 ML LIQUID UDC GT SCH (08:01)
[2018-04-07] MEDS: COD LIVER OIL/ZINC OXIDE OINT 113 GM TUBE TP SCH ×2 (08:01→21:15)
--- NOTE | 2018-04-07 10:26 | NUR ---
SEEN BY FRANCIA JETER.
[2018-04-07 11:14] VITALS: BP 132/75
[2018-04-07] MEDS: ATORVASTATIN 10 MG TABLET GT SCH (21:13)
[2018-04-07] MEDS: MULTIVIT, IRON, MIN NO. 8, FA TABLET GT SCH (21:15)
[2018-04-07 22:00] VITALS: BP 129/81
[2018-04-08] MEDS: ALBUTEROL SULFATE 2.5 MG/3 ML NEBU NEB SCH ×6 (02:30→22:58)
[2018-04-08] MEDS: IPRATROPIUM BROMIDE 0.5 MG/2.5 ML NEBU NEB SCH ×6 (02:30→22:58)
[2018-04-08] MEDS: JEVITY 1.2 1000 ML LIQUID GT PRN (03:46)
[2018-04-08] MEDS: CHOLECALCIFEROL 1,000 UNIT TABLET GT SCH (06:00)
[2018-04-08] MEDS: BACLOFEN 10 MG TABLET GT SCH ×3 (06:00→21:09)
[2018-04-08] MEDS: BUDESONIDE 0.5 MG/2 ML NEBU NEB SCH ×2 (07:02→19:12)
[2018-04-08] MEDS: NUTRISOURCE FIBER 4 GM PACKET GT SCH ×2 (08:31→21:09)
[2018-04-08] MEDS: DOCUSATE SODIUM 100 MG/10 ML LIQUID UDC GT SCH (08:31)
[2018-04-08] MEDS: CALMOSEPTINE 113 GM OINTMENT TP SCH ×2 (08:32→21:09)
[2018-04-08] MEDS: COD LIVER OIL/ZINC OXIDE OINT 113 GM TUBE TP SCH ×2 (08:32→21:09)
[2018-04-08] MEDS: HYDROGEN PEROXIDE 3% 118 ML BOTTLE TP SCH ×2 (08:32→21:09)
[2018-04-08] MEDS: CALCIUM CARBONATE 500 MG TABLET GT SCH ×2 (08:32→21:09)
[2018-04-08 11:17] VITALS: BP 98/49
[2018-04-08 20:00] VITALS: BP 114/67
[2018-04-08] MEDS: ATORVASTATIN 10 MG TABLET GT SCH (21:09)
[2018-04-09] MEDS: JEVITY 1.2 1000 ML LIQUID GT PRN (02:05)
[2018-04-09] MEDS: IPRATROPIUM BROMIDE 0.5 MG/2.5 ML NEBU NEB SCH ×6 (02:30→22:30)
[2018-04-09] MEDS: ALBUTEROL SULFATE 2.5 MG/3 ML NEBU NEB SCH ×6 (02:30→22:30)
[2018-04-09] MEDS: BACLOFEN 10 MG TABLET GT SCH ×3 (05:31→21:13)
[2018-04-09] MEDS: CHOLECALCIFEROL 1,000 UNIT TABLET GT SCH (05:31)
[2018-04-09 08:06] VITALS: BP 110/63
[2018-04-09] MEDS: BUDESONIDE 0.5 MG/2 ML NEBU NEB SCH ×2 (08:07→19:17)
[2018-04-09] MEDS: CALCIUM CARBONATE 500 MG TABLET GT SCH ×2 (09:51→21:13)
[2018-04-09] MEDS: HYDROGEN PEROXIDE 3% 118 ML BOTTLE TP SCH ×2 (09:51→21:14)
[2018-04-09] MEDS: DOCUSATE SODIUM 100 MG/10 ML LIQUID UDC GT SCH (09:51)
[2018-04-09] MEDS: COD LIVER OIL/ZINC OXIDE OINT 113 GM TUBE TP SCH ×2 (09:51→21:14)
[2018-04-09] MEDS: CALMOSEPTINE 113 GM OINTMENT TP SCH ×2 (09:51→21:14)
[2018-04-09] MEDS: NUTRISOURCE FIBER 4 GM PACKET GT SCH ×2 (09:51→21:13)
--- NOTE | 2018-04-09 14:30 | NUR ---
Seen and examined by Myrtle Shea,no new orders noted.
--- NOTE | 2018-04-09 15:22 | NUR ---
INTERDISCIPLINARY PLAN OF CARE CONFERENCE was held today. Patient's family was unable to attend due to living out of state. Dr. Underwood and the Interdisciplinary Team reviewed the current plan of care in detail. Dr. Booker was also present at the meeting. RN reported on patient's current medical condition. See RN IDT conference notes. No major changes were reported. See also all other disciplines IDT notes and physician's progress notes for additional details.
--- NOTE | 2018-04-09 15:52 | NUR ---
Pharmacy Update from Today's 04/09/18 IDT Meeting: VS: Temp 98.6 BP 114/67 HR 60 LABS: (from 02/06/18, no new labs) Wbc 4.3H/H 13.8/39.6Plt 147 Na 140K 4.4Cl 103CO2 27BUN/SCr 19/0.7 BS 98Ca 9.1 MEDICATION USE REVIEWED: > Pt not on any anti-psych or anti-seizure medications > PRN MED USAGE: (February) Tylenol for pain used x 0 Tylenol for temp used x 0 Bisacodyl PRN x 0 NEW ORDERS NOTED: > Keflex 03/20-03/30 for cellulitis (right thigh) Pt was reviewed and discussed in depth, no medication concerns or issues reported at this time, pt remains stable on current regimen, has finished abx course with no reported events. Will continue to follow
[2018-04-09 20:00] VITALS: BP 135/82
[2018-04-09] MEDS: ATORVASTATIN 10 MG TABLET GT SCH (21:13)
[2018-04-09] MEDS: MULTIVIT, IRON, MIN NO. 8, FA TABLET GT SCH (21:14)
[2018-04-10] MEDS: ALBUTEROL SULFATE 2.5 MG/3 ML NEBU NEB SCH ×6 (02:55→22:37)
[2018-04-10] MEDS: IPRATROPIUM BROMIDE 0.5 MG/2.5 ML NEBU NEB SCH ×6 (02:55→22:37)
[2018-04-10] MEDS: CHOLECALCIFEROL 1,000 UNIT TABLET GT SCH (05:45)
[2018-04-10] MEDS: BACLOFEN 10 MG TABLET GT SCH ×3 (05:45→21:29)
[2018-04-10] MEDS: BUDESONIDE 0.5 MG/2 ML NEBU NEB SCH ×2 (06:59→19:51)
[2018-04-10] MEDS: JEVITY 1.2 1000 ML LIQUID GT PRN (07:00)
[2018-04-10 08:06] VITALS: BP 123/60
[2018-04-10] MEDS: HYDROGEN PEROXIDE 3% 118 ML BOTTLE TP SCH ×2 (09:00→20:44)
[2018-04-10] MEDS: DOCUSATE SODIUM 100 MG/10 ML LIQUID UDC GT SCH (09:00)
[2018-04-10] MEDS: CALCIUM CARBONATE 500 MG TABLET GT SCH ×2 (09:00→20:43)
[2018-04-10] MEDS: NUTRISOURCE FIBER 4 GM PACKET GT SCH ×2 (09:00→20:43)
[2018-04-10] MEDS: COD LIVER OIL/ZINC OXIDE OINT 113 GM TUBE TP SCH ×2 (09:00→20:43)
[2018-04-10] MEDS: CALMOSEPTINE 113 GM OINTMENT TP SCH ×2 (09:00→20:43)
[2018-04-10 20:00] VITALS: BP 144/73
[2018-04-10] MEDS: ATORVASTATIN 10 MG TABLET GT SCH (20:43)
[2018-04-11] MEDS: IPRATROPIUM BROMIDE 0.5 MG/2.5 ML NEBU NEB SCH ×6 (03:02→23:07)
[2018-04-11] MEDS: ALBUTEROL SULFATE 2.5 MG/3 ML NEBU NEB SCH ×6 (03:02→23:07)
[2018-04-11] MEDS: BACLOFEN 10 MG TABLET GT SCH ×3 (05:46→21:37)
[2018-04-11] MEDS: CHOLECALCIFEROL 1,000 UNIT TABLET GT SCH (05:46)
[2018-04-11] MEDS: JEVITY 1.2 1000 ML LIQUID GT PRN (05:47)
[2018-04-11] MEDS: BUDESONIDE 0.5 MG/2 ML NEBU NEB SCH ×2 (07:21→20:09)
[2018-04-11] MEDS: DOCUSATE SODIUM 100 MG/10 ML LIQUID UDC GT SCH (08:30)
[2018-04-11] MEDS: CALMOSEPTINE 113 GM OINTMENT TP SCH ×2 (08:30→21:37)
[2018-04-11] MEDS: CALCIUM CARBONATE 500 MG TABLET GT SCH ×2 (08:30→21:37)
[2018-04-11] MEDS: NUTRISOURCE FIBER 4 GM PACKET GT SCH ×2 (08:30→21:37)
[2018-04-11] MEDS: COD LIVER OIL/ZINC OXIDE OINT 113 GM TUBE TP SCH ×2 (08:31→21:37)
[2018-04-11] MEDS: HYDROGEN PEROXIDE 3% 118 ML BOTTLE TP SCH ×2 (08:31→21:37)
[2018-04-11 15:02] VITALS: BP 125/74
[2018-04-11 20:37] VITALS: BP 113/72
[2018-04-11] MEDS: MULTIVIT, IRON, MIN NO. 8, FA TABLET GT SCH (21:37)
[2018-04-11] MEDS: ATORVASTATIN 10 MG TABLET GT SCH (21:37)
[2018-04-12] MEDS: JEVITY 1.2 1000 ML LIQUID GT PRN (01:08)
[2018-04-12] MEDS: ALBUTEROL SULFATE 2.5 MG/3 ML NEBU NEB SCH ×6 (04:01→23:14)
[2018-04-12] MEDS: IPRATROPIUM BROMIDE 0.5 MG/2.5 ML NEBU NEB SCH ×6 (04:01→23:14)
[2018-04-12] MEDS: BACLOFEN 10 MG TABLET GT SCH ×3 (05:10→22:01)
[2018-04-12] MEDS: CHOLECALCIFEROL 1,000 UNIT TABLET GT SCH (05:39)
[2018-04-12] MEDS: BUDESONIDE 0.5 MG/2 ML NEBU NEB SCH ×2 (07:05→19:38)
[2018-04-12] MEDS: NUTRISOURCE FIBER 4 GM PACKET GT SCH ×2 (08:04→20:48)
[2018-04-12] MEDS: CALMOSEPTINE 113 GM OINTMENT TP SCH ×2 (08:04→20:48)
[2018-04-12] MEDS: CALCIUM CARBONATE 500 MG TABLET GT SCH ×2 (08:04→20:48)
[2018-04-12] MEDS: DOCUSATE SODIUM 100 MG/10 ML LIQUID UDC GT SCH (08:04)
[2018-04-12] MEDS: COD LIVER OIL/ZINC OXIDE OINT 113 GM TUBE TP SCH ×2 (08:05→20:48)
[2018-04-12] MEDS: HYDROGEN PEROXIDE 3% 118 ML BOTTLE TP SCH ×2 (08:05→20:48)
[2018-04-12 11:21] VITALS: BP 118/73
[2018-04-12 20:23] VITALS: BP 99/56
[2018-04-12] MEDS: ATORVASTATIN 10 MG TABLET GT SCH (20:48)
[2018-04-13] MEDS: ALBUTEROL SULFATE 2.5 MG/3 ML NEBU NEB SCH ×6 (03:12→23:28)
[2018-04-13] MEDS: IPRATROPIUM BROMIDE 0.5 MG/2.5 ML NEBU NEB SCH ×6 (03:12→23:28)
[2018-04-13] MEDS: BACLOFEN 10 MG TABLET GT SCH ×3 (05:52→21:24)
[2018-04-13] MEDS: CHOLECALCIFEROL 1,000 UNIT TABLET GT SCH (05:53)
[2018-04-13] MEDS: BUDESONIDE 0.5 MG/2 ML NEBU NEB SCH ×2 (08:09→18:58)
[2018-04-13] MEDS: CALCIUM CARBONATE 500 MG TABLET GT SCH ×2 (09:41→21:24)
[2018-04-13] MEDS: DOCUSATE SODIUM 100 MG/10 ML LIQUID UDC GT SCH (09:41)
[2018-04-13] MEDS: HYDROGEN PEROXIDE 3% 118 ML BOTTLE TP SCH ×2 (09:41→21:24)
[2018-04-13] MEDS: CALMOSEPTINE 113 GM OINTMENT TP SCH ×2 (09:41→21:24)
[2018-04-13] MEDS: NUTRISOURCE FIBER 4 GM PACKET GT SCH ×2 (09:41→21:24)
[2018-04-13] MEDS: COD LIVER OIL/ZINC OXIDE OINT 113 GM TUBE TP SCH ×2 (09:41→21:24)
[2018-04-13 11:23] VITALS: BP 131/71
[2018-04-13] MEDS: JEVITY 1.2 1000 ML LIQUID GT PRN (13:00)
[2018-04-13 20:23] VITALS: BP 95/60
[2018-04-13] MEDS: ATORVASTATIN 10 MG TABLET GT SCH (21:24)
[2018-04-13] MEDS: MULTIVIT, IRON, MIN NO. 8, FA TABLET GT SCH (21:24)
--- NOTE | 2018-04-13 21:49 | NUR ---
daniel cameron n.p. was in, no new orders.
[2018-04-14] MEDS: IPRATROPIUM BROMIDE 0.5 MG/2.5 ML NEBU NEB SCH ×6 (03:27→23:12)
[2018-04-14] MEDS: ALBUTEROL SULFATE 2.5 MG/3 ML NEBU NEB SCH ×6 (03:27→23:12)
[2018-04-14] MEDS: CHOLECALCIFEROL 1,000 UNIT TABLET GT SCH (06:41)
[2018-04-14] MEDS: BACLOFEN 10 MG TABLET GT SCH ×3 (06:41→21:57)
[2018-04-14] MEDS: BUDESONIDE 0.5 MG/2 ML NEBU NEB SCH ×2 (06:42→19:06)
[2018-04-14 08:03] VITALS: BP 111/75
[2018-04-14] MEDS: HYDROGEN PEROXIDE 3% 118 ML BOTTLE TP SCH ×2 (08:47→21:57)
[2018-04-14] MEDS: CALCIUM CARBONATE 500 MG TABLET GT SCH ×2 (08:47→21:57)
[2018-04-14] MEDS: CALMOSEPTINE 113 GM OINTMENT TP SCH ×2 (08:47→21:57)
[2018-04-14] MEDS: NUTRISOURCE FIBER 4 GM PACKET GT SCH ×2 (08:47→21:57)
[2018-04-14] MEDS: DOCUSATE SODIUM 100 MG/10 ML LIQUID UDC GT SCH (08:47)
[2018-04-14] MEDS: COD LIVER OIL/ZINC OXIDE OINT 113 GM TUBE TP SCH (08:47)
[2018-04-14 20:23] VITALS: BP 104/64
[2018-04-14] MEDS: ATORVASTATIN 10 MG TABLET GT SCH (21:57)
[2018-04-15] MEDS: ALBUTEROL SULFATE 2.5 MG/3 ML NEBU NEB SCH ×6 (03:03→22:44)
[2018-04-15] MEDS: IPRATROPIUM BROMIDE 0.5 MG/2.5 ML NEBU NEB SCH ×6 (03:03→22:44)
[2018-04-15] MEDS: BUDESONIDE 0.5 MG/2 ML NEBU NEB SCH ×2 (06:54→19:51)
[2018-04-15] MEDS: BACLOFEN 10 MG TABLET GT SCH ×3 (06:55→21:32)
[2018-04-15] MEDS: CHOLECALCIFEROL 1,000 UNIT TABLET GT SCH (06:55)
[2018-04-15 08:00] VITALS: BP 122/72
[2018-04-15] MEDS: DOCUSATE SODIUM 100 MG/10 ML LIQUID UDC GT SCH (08:02)
[2018-04-15] MEDS: NUTRISOURCE FIBER 4 GM PACKET GT SCH ×2 (08:02→21:32)
[2018-04-15] MEDS: HYDROGEN PEROXIDE 3% 118 ML BOTTLE TP SCH ×2 (08:03→21:32)
[2018-04-15] MEDS: CALMOSEPTINE 113 GM OINTMENT TP SCH ×2 (08:03→21:32)
[2018-04-15] MEDS: CALCIUM CARBONATE 500 MG TABLET GT SCH ×2 (08:03→21:32)
[2018-04-15 21:06] VITALS: BP 103/77
[2018-04-15] MEDS: ATORVASTATIN 10 MG TABLET GT SCH (21:32)
[2018-04-15] MEDS: MULTIVIT, IRON, MIN NO. 8, FA TABLET GT SCH (21:32)
[2018-04-16] MEDS: ALBUTEROL SULFATE 2.5 MG/3 ML NEBU NEB SCH ×6 (02:40→23:00)
[2018-04-16] MEDS: IPRATROPIUM BROMIDE 0.5 MG/2.5 ML NEBU NEB SCH ×6 (02:40→23:00)
[2018-04-16] MEDS: CHOLECALCIFEROL 1,000 UNIT TABLET GT SCH (05:50)
[2018-04-16] MEDS: BACLOFEN 10 MG TABLET GT SCH ×3 (05:50→21:48)
[2018-04-16] MEDS: BUDESONIDE 0.5 MG/2 ML NEBU NEB SCH ×2 (06:59→19:10)
[2018-04-16 08:00] VITALS: BP 120/72
[2018-04-16] MEDS: DOCUSATE SODIUM 100 MG/10 ML LIQUID UDC GT SCH (09:55)
[2018-04-16] MEDS: CALCIUM CARBONATE 500 MG TABLET GT SCH ×2 (09:55→20:45)
[2018-04-16] MEDS: NUTRISOURCE FIBER 4 GM PACKET GT SCH ×2 (09:55→20:45)
[2018-04-16] MEDS: CALMOSEPTINE 113 GM OINTMENT TP SCH ×2 (09:56→20:45)
[2018-04-16] MEDS: HYDROGEN PEROXIDE 3% 118 ML BOTTLE TP SCH ×2 (09:56→20:45)
[2018-04-16 20:23] VITALS: BP 112/71
[2018-04-16] MEDS: ATORVASTATIN 10 MG TABLET GT SCH (20:44)
[2018-04-17] MEDS: ALBUTEROL SULFATE 2.5 MG/3 ML NEBU NEB SCH ×6 (02:30→23:30)
[2018-04-17] MEDS: IPRATROPIUM BROMIDE 0.5 MG/2.5 ML NEBU NEB SCH ×6 (02:30→23:30)
[2018-04-17] MEDS: CHOLECALCIFEROL 1,000 UNIT TABLET GT SCH (05:30)
[2018-04-17] MEDS: BACLOFEN 10 MG TABLET GT SCH ×3 (05:30→21:17)
[2018-04-17 08:00] VITALS: BP 120/67
[2018-04-17] MEDS: BUDESONIDE 0.5 MG/2 ML NEBU NEB SCH ×2 (08:05→19:26)
[2018-04-17] MEDS: NUTRISOURCE FIBER 4 GM PACKET GT SCH ×2 (08:15→21:17)
[2018-04-17] MEDS: DOCUSATE SODIUM 100 MG/10 ML LIQUID UDC GT SCH (08:15)
[2018-04-17] MEDS: CALCIUM CARBONATE 500 MG TABLET GT SCH ×2 (08:15→21:17)
[2018-04-17] MEDS: CALMOSEPTINE 113 GM OINTMENT TP SCH ×2 (08:16→21:17)
[2018-04-17] MEDS: HYDROGEN PEROXIDE 3% 118 ML BOTTLE TP SCH ×2 (08:16→21:17)
[2018-04-17 20:14] VITALS: BP 124/80
[2018-04-17] MEDS: MULTIVIT, IRON, MIN NO. 8, FA TABLET GT SCH (21:17)
[2018-04-17] MEDS: ATORVASTATIN 10 MG TABLET GT SCH (21:17)
[2018-04-18] MEDS: IPRATROPIUM BROMIDE 0.5 MG/2.5 ML NEBU NEB SCH ×6 (03:39→23:19)
[2018-04-18] MEDS: ALBUTEROL SULFATE 2.5 MG/3 ML NEBU NEB SCH ×6 (03:39→23:19)
[2018-04-18] MEDS: BACLOFEN 10 MG TABLET GT SCH ×3 (05:22→21:20)
[2018-04-18] MEDS: CHOLECALCIFEROL 1,000 UNIT TABLET GT SCH (05:35)
[2018-04-18] MEDS: BUDESONIDE 0.5 MG/2 ML NEBU NEB SCH ×2 (07:09→19:26)
[2018-04-18 08:09] VITALS: BP 128/80
[2018-04-18] MEDS: HYDROGEN PEROXIDE 3% 118 ML BOTTLE TP SCH ×2 (08:31→21:20)
[2018-04-18] MEDS: CALMOSEPTINE 113 GM OINTMENT TP SCH ×2 (08:31→21:20)
[2018-04-18] MEDS: CALCIUM CARBONATE 500 MG TABLET GT SCH ×2 (08:31→21:20)
[2018-04-18] MEDS: NUTRISOURCE FIBER 4 GM PACKET GT SCH ×2 (08:31→21:20)
[2018-04-18] MEDS: DOCUSATE SODIUM 100 MG/10 ML LIQUID UDC GT SCH (08:31)
[2018-04-18 20:00] VITALS: BP 110/65
[2018-04-18] MEDS: ATORVASTATIN 10 MG TABLET GT SCH (21:19)
[2018-04-18] MEDS: JEVITY 1.2 1000 ML LIQUID GT PRN (22:02)
[2018-04-19] MEDS: ALBUTEROL SULFATE 2.5 MG/3 ML NEBU NEB SCH ×6 (04:02→23:09)
[2018-04-19] MEDS: IPRATROPIUM BROMIDE 0.5 MG/2.5 ML NEBU NEB SCH ×6 (04:02→23:09)
[2018-04-19] MEDS: BACLOFEN 10 MG TABLET GT SCH ×3 (05:26→21:15)
[2018-04-19] MEDS: CHOLECALCIFEROL 1,000 UNIT TABLET GT SCH (05:39)
[2018-04-19 08:07] VITALS: BP 105/59
[2018-04-19] MEDS: BUDESONIDE 0.5 MG/2 ML NEBU NEB SCH ×2 (08:09→19:07)
[2018-04-19] MEDS: CALMOSEPTINE 113 GM OINTMENT TP SCH ×2 (08:42→21:15)
[2018-04-19] MEDS: CALCIUM CARBONATE 500 MG TABLET GT SCH ×2 (08:42→21:15)
[2018-04-19] MEDS: HYDROGEN PEROXIDE 3% 118 ML BOTTLE TP SCH ×2 (08:42→21:15)
[2018-04-19] MEDS: DOCUSATE SODIUM 100 MG/10 ML LIQUID UDC GT SCH (08:42)
[2018-04-19] MEDS: NUTRISOURCE FIBER 4 GM PACKET GT SCH ×2 (08:42→21:15)
--- NOTE | 2018-04-19 13:49 | NUR ---
SEEN BY FRANCIA JETER.
[2018-04-19 20:00] VITALS: BP 95/56
[2018-04-19] MEDS: ATORVASTATIN 10 MG TABLET GT SCH (21:15)
[2018-04-19] MEDS: MULTIVIT, IRON, MIN NO. 8, FA TABLET GT SCH (21:15)
[2018-04-19] MEDS: JEVITY 1.2 1000 ML LIQUID GT PRN (23:21)
[2018-04-20] MEDS: IPRATROPIUM BROMIDE 0.5 MG/2.5 ML NEBU NEB SCH ×6 (03:11→22:47)
[2018-04-20] MEDS: ALBUTEROL SULFATE 2.5 MG/3 ML NEBU NEB SCH ×6 (03:11→22:47)
[2018-04-20] MEDS: BACLOFEN 10 MG TABLET GT SCH ×3 (05:27→22:00)
[2018-04-20] MEDS: CHOLECALCIFEROL 1,000 UNIT TABLET GT SCH (05:30)
[2018-04-20] MEDS: BUDESONIDE 0.5 MG/2 ML NEBU NEB SCH ×2 (07:12→19:34)
[2018-04-20] MEDS: HYDROGEN PEROXIDE 3% 118 ML BOTTLE TP SCH ×2 (09:00→20:18)
[2018-04-20] MEDS: DOCUSATE SODIUM 100 MG/10 ML LIQUID UDC GT SCH (09:00)
[2018-04-20] MEDS: NUTRISOURCE FIBER 4 GM PACKET GT SCH ×2 (09:00→20:18)
[2018-04-20] MEDS: CALCIUM CARBONATE 500 MG TABLET GT SCH ×2 (09:00→20:18)
[2018-04-20] MEDS: CALMOSEPTINE 113 GM OINTMENT TP SCH ×2 (09:00→20:18)
[2018-04-20 11:06] VITALS: BP 113/69
[2018-04-20 20:00] VITALS: BP 138/85
[2018-04-20] MEDS: ATORVASTATIN 10 MG TABLET GT SCH (20:18)
[2018-04-21] MEDS: IPRATROPIUM BROMIDE 0.5 MG/2.5 ML NEBU NEB SCH ×6 (03:00→22:30)
[2018-04-21] MEDS: ALBUTEROL SULFATE 2.5 MG/3 ML NEBU NEB SCH ×6 (03:00→22:30)
[2018-04-21] MEDS: BACLOFEN 10 MG TABLET GT SCH ×3 (05:35→22:12)
[2018-04-21] MEDS: CHOLECALCIFEROL 1,000 UNIT TABLET GT SCH (05:35)
[2018-04-21] MEDS: BUDESONIDE 0.5 MG/2 ML NEBU NEB SCH ×2 (08:01→19:35)
[2018-04-21] MEDS: CALMOSEPTINE 113 GM OINTMENT TP SCH ×2 (08:22→20:13)
[2018-04-21] MEDS: NUTRISOURCE FIBER 4 GM PACKET GT SCH ×3 (08:22→20:41)
[2018-04-21] MEDS: HYDROGEN PEROXIDE 3% 118 ML BOTTLE TP SCH ×2 (08:22→20:13)
[2018-04-21] MEDS: DOCUSATE SODIUM 100 MG/10 ML LIQUID UDC GT SCH (08:22)
[2018-04-21] MEDS: CALCIUM CARBONATE 500 MG TABLET GT SCH ×3 (08:22→20:42)
--- NOTE | 2018-04-21 11:00 | NUR ---
SEEN BY MATILDA JETER.
[2018-04-21] MEDS: MULTIVIT, IRON, MIN NO. 8, FA TABLET GT SCH (20:13)
[2018-04-21] MEDS: ATORVASTATIN 10 MG TABLET GT SCH (20:13)
[2018-04-21 20:16] VITALS: BP 117/68
[2018-04-22] MEDS: JEVITY 1.2 1000 ML LIQUID GT PRN (02:43)
[2018-04-22] MEDS: IPRATROPIUM BROMIDE 0.5 MG/2.5 ML NEBU NEB SCH ×6 (03:08→22:58)
[2018-04-22] MEDS: ALBUTEROL SULFATE 2.5 MG/3 ML NEBU NEB SCH ×6 (03:08→22:58)
[2018-04-22] MEDS: CHOLECALCIFEROL 1,000 UNIT TABLET GT SCH (05:21)
[2018-04-22] MEDS: BACLOFEN 10 MG TABLET GT SCH ×3 (05:21→21:31)
[2018-04-22] MEDS: BUDESONIDE 0.5 MG/2 ML NEBU NEB SCH ×2 (07:06→19:04)
[2018-04-22 08:00] VITALS: BP 109/78
[2018-04-22] MEDS: DOCUSATE SODIUM 100 MG/10 ML LIQUID UDC GT SCH (08:12)
[2018-04-22] MEDS: CALCIUM CARBONATE 500 MG TABLET GT SCH ×2 (08:12→21:31)
[2018-04-22] MEDS: CALMOSEPTINE 113 GM OINTMENT TP SCH ×2 (08:12→21:30)
[2018-04-22] MEDS: NUTRISOURCE FIBER 4 GM PACKET GT SCH ×2 (08:12→21:30)
[2018-04-22] MEDS: HYDROGEN PEROXIDE 3% 118 ML BOTTLE TP SCH ×2 (08:13→21:30)
[2018-04-22 21:08] VITALS: BP 125/76
[2018-04-22] MEDS: ATORVASTATIN 10 MG TABLET GT SCH (21:31)
[2018-04-23] MEDS: JEVITY 1.2 1000 ML LIQUID GT PRN (01:58)
[2018-04-23] MEDS: IPRATROPIUM BROMIDE 0.5 MG/2.5 ML NEBU NEB SCH ×6 (02:30→23:56)
[2018-04-23] MEDS: ALBUTEROL SULFATE 2.5 MG/3 ML NEBU NEB SCH ×6 (02:30→23:56)
[2018-04-23] MEDS: CHOLECALCIFEROL 1,000 UNIT TABLET GT SCH (05:48)
[2018-04-23] MEDS: BACLOFEN 10 MG TABLET GT SCH ×3 (05:48→21:08)
[2018-04-23] MEDS: BUDESONIDE 0.5 MG/2 ML NEBU NEB SCH ×2 (06:40→20:41)
[2018-04-23 08:00] VITALS: BP 127/63
[2018-04-23] MEDS: NUTRISOURCE FIBER 4 GM PACKET GT SCH ×2 (09:10→21:07)
[2018-04-23] MEDS: HYDROGEN PEROXIDE 3% 118 ML BOTTLE TP SCH ×2 (09:10→21:08)
[2018-04-23] MEDS: DOCUSATE SODIUM 100 MG/10 ML LIQUID UDC GT SCH (09:10)
[2018-04-23] MEDS: CALMOSEPTINE 113 GM OINTMENT TP SCH ×2 (09:10→21:08)
[2018-04-23] MEDS: CALCIUM CARBONATE 500 MG TABLET GT SCH ×2 (09:10→21:07)
[2018-04-23 20:52] VITALS: BP 122/71
[2018-04-23] MEDS: MULTIVIT, IRON, MIN NO. 8, FA TABLET GT SCH (21:07)
[2018-04-23] MEDS: ATORVASTATIN 10 MG TABLET GT SCH (21:07)
[2018-04-24] MEDS: JEVITY 1.2 1000 ML LIQUID GT PRN (02:00)
[2018-04-24] MEDS: ALBUTEROL SULFATE 2.5 MG/3 ML NEBU NEB SCH ×6 (03:37→22:30)
[2018-04-24] MEDS: IPRATROPIUM BROMIDE 0.5 MG/2.5 ML NEBU NEB SCH ×6 (03:37→22:30)
[2018-04-24] MEDS: BACLOFEN 10 MG TABLET GT SCH ×3 (05:36→21:22)
[2018-04-24] MEDS: CHOLECALCIFEROL 1,000 UNIT TABLET GT SCH (05:36)
[2018-04-24] MEDS: BUDESONIDE 0.5 MG/2 ML NEBU NEB SCH ×2 (07:10→19:12)
[2018-04-24 08:00] VITALS: BP 128/88
--- NOTE | 2018-04-24 08:00 | NUR ---
REC'D. PATIENT AWAKE, AFEBRILE IN BED, ON CA VIA TRACH MASK @ 28% FIO2 JORDYN. WELL, NO S/S OF RESP. DISTRESS, NO DISCOMFORT NOTED. ABD. SOFT/NON-DISTENDED, SKIN WARM/DRY/INTACT. GT SITE CLEAN/PATENT/NO LEAK/NO REDNESS NOTED. TRACH TUBE SHILEY 8, UNCUFFED, SECURED/PATENT AT MIDLINE. SR UP X4, CALL LIGHT WITH IN REACH AT ALL TIMES. WILL CONTINUE TO MONITOR.
[2018-04-24] MEDS: NUTRISOURCE FIBER 4 GM PACKET GT SCH ×2 (08:23→21:22)
[2018-04-24] MEDS: DOCUSATE SODIUM 100 MG/10 ML LIQUID UDC GT SCH (08:23)
[2018-04-24] MEDS: CALCIUM CARBONATE 500 MG TABLET GT SCH ×2 (08:23→21:22)
[2018-04-24] MEDS: HYDROGEN PEROXIDE 3% 118 ML BOTTLE TP SCH ×2 (08:24→21:22)
[2018-04-24] MEDS: CALMOSEPTINE 113 GM OINTMENT TP SCH (08:24)
[2018-04-24] MEDS ORDERED: Z GUARD REMEDY PASTE 57 GM TUBE TOP PRN (17:45)
[2018-04-24 20:00] VITALS: BP 112/54
[2018-04-24] MEDS: ATORVASTATIN 10 MG TABLET GT SCH (21:22)
[2018-04-24] MEDS: Z GUARD REMEDY PASTE 57 GM TUBE TOP SCH (21:22)
[2018-04-25] MEDS: IPRATROPIUM BROMIDE 0.5 MG/2.5 ML NEBU NEB SCH ×6 (02:30→22:30)
[2018-04-25] MEDS: ALBUTEROL SULFATE 2.5 MG/3 ML NEBU NEB SCH ×6 (02:30→22:30)
[2018-04-25] MEDS: CHOLECALCIFEROL 1,000 UNIT TABLET GT SCH (05:38)
[2018-04-25] MEDS: BACLOFEN 10 MG TABLET GT SCH ×3 (05:38→21:04)
[2018-04-25] MEDS: JEVITY 1.2 1000 ML LIQUID GT PRN (06:00)
[2018-04-25] MEDS: BUDESONIDE 0.5 MG/2 ML NEBU NEB SCH ×2 (07:09→19:09)
[2018-04-25 08:00] VITALS: BP 118/65
[2018-04-25] MEDS: NUTRISOURCE FIBER 4 GM PACKET GT SCH ×2 (08:29→20:55)
[2018-04-25] MEDS: DOCUSATE SODIUM 100 MG/10 ML LIQUID UDC GT SCH (08:29)
[2018-04-25] MEDS: Z GUARD REMEDY PASTE 57 GM TUBE TOP SCH ×2 (08:30→20:56)
[2018-04-25] MEDS: HYDROGEN PEROXIDE 3% 118 ML BOTTLE TP SCH ×2 (08:30→20:56)
[2018-04-25] MEDS: CALCIUM CARBONATE 500 MG TABLET GT SCH ×2 (08:30→20:55)
[2018-04-25 20:55] VITALS: BP 123/91
[2018-04-25] MEDS: ATORVASTATIN 10 MG TABLET GT SCH (20:55)
[2018-04-25] MEDS: MULTIVIT, IRON, MIN NO. 8, FA TABLET GT SCH (20:55)
[2018-04-26] MEDS: IPRATROPIUM BROMIDE 0.5 MG/2.5 ML NEBU NEB SCH ×6 (02:30→22:30)
[2018-04-26] MEDS: ALBUTEROL SULFATE 2.5 MG/3 ML NEBU NEB SCH ×6 (02:30→22:30)
[2018-04-26] MEDS: BACLOFEN 10 MG TABLET GT SCH ×3 (05:10→21:46)
[2018-04-26] MEDS: JEVITY 1.2 1000 ML LIQUID GT PRN (05:19)
[2018-04-26] MEDS: CHOLECALCIFEROL 1,000 UNIT TABLET GT SCH (05:50)
[2018-04-26] MEDS: BUDESONIDE 0.5 MG/2 ML NEBU NEB SCH ×2 (07:01→19:10)
[2018-04-26 08:05] VITALS: BP 113/63
[2018-04-26] MEDS: DOCUSATE SODIUM 100 MG/10 ML LIQUID UDC GT SCH (08:13)
[2018-04-26] MEDS: NUTRISOURCE FIBER 4 GM PACKET GT SCH ×2 (08:14→21:46)
[2018-04-26] MEDS: CALCIUM CARBONATE 500 MG TABLET GT SCH ×2 (08:14→21:46)
[2018-04-26] MEDS: HYDROGEN PEROXIDE 3% 118 ML BOTTLE TP SCH ×2 (08:14→21:46)
[2018-04-26] MEDS: Z GUARD REMEDY PASTE 57 GM TUBE TOP SCH ×2 (08:14→21:46)
[2018-04-26 20:36] VITALS: BP 113/69
[2018-04-26] MEDS: ATORVASTATIN 10 MG TABLET GT SCH (21:46)
[2018-04-27] MEDS: ALBUTEROL SULFATE 2.5 MG/3 ML NEBU NEB SCH ×6 (02:30→23:37)
[2018-04-27] MEDS: IPRATROPIUM BROMIDE 0.5 MG/2.5 ML NEBU NEB SCH ×6 (02:30→23:37)
[2018-04-27] MEDS: CHOLECALCIFEROL 1,000 UNIT TABLET GT SCH (05:34)
[2018-04-27] MEDS: BACLOFEN 10 MG TABLET GT SCH ×3 (05:34→21:43)
[2018-04-27 08:00] VITALS: BP 92/54
[2018-04-27] MEDS: DOCUSATE SODIUM 100 MG/10 ML LIQUID UDC GT SCH (08:03)
[2018-04-27] MEDS: NUTRISOURCE FIBER 4 GM PACKET GT SCH ×2 (08:03→21:42)
[2018-04-27] MEDS: CALCIUM CARBONATE 500 MG TABLET GT SCH ×2 (08:03→21:42)
[2018-04-27] MEDS: Z GUARD REMEDY PASTE 57 GM TUBE TOP SCH ×2 (08:04→21:43)
[2018-04-27] MEDS: HYDROGEN PEROXIDE 3% 118 ML BOTTLE TP SCH ×2 (08:04→21:43)
[2018-04-27] MEDS: BUDESONIDE 0.5 MG/2 ML NEBU NEB SCH ×2 (08:17→19:38)
[2018-04-27] MEDS: JEVITY 1.2 1000 ML LIQUID GT PRN (18:17)
[2018-04-27 20:48] VITALS: BP 96/58
[2018-04-27] MEDS: ATORVASTATIN 10 MG TABLET GT SCH (21:42)
[2018-04-27] MEDS: MULTIVIT, IRON, MIN NO. 8, FA TABLET GT SCH (21:43)
[2018-04-28] MEDS: ALBUTEROL SULFATE 2.5 MG/3 ML NEBU NEB SCH ×6 (03:17→23:29)
[2018-04-28] MEDS: IPRATROPIUM BROMIDE 0.5 MG/2.5 ML NEBU NEB SCH ×6 (03:17→23:29)
[2018-04-28] MEDS: BACLOFEN 10 MG TABLET GT SCH ×3 (05:16→21:29)
[2018-04-28] MEDS: CHOLECALCIFEROL 1,000 UNIT TABLET GT SCH (05:35)
[2018-04-28 08:00] VITALS: BP 116/67
[2018-04-28] MEDS: BUDESONIDE 0.5 MG/2 ML NEBU NEB SCH ×2 (08:04→20:04)
[2018-04-28] MEDS: DOCUSATE SODIUM 100 MG/10 ML LIQUID UDC GT SCH (08:29)
[2018-04-28] MEDS: CALCIUM CARBONATE 500 MG TABLET GT SCH ×2 (08:30→21:29)
[2018-04-28] MEDS: NUTRISOURCE FIBER 4 GM PACKET GT SCH ×2 (08:30→21:29)
[2018-04-28] MEDS: Z GUARD REMEDY PASTE 57 GM TUBE TOP SCH ×2 (08:30→21:29)
[2018-04-28] MEDS: HYDROGEN PEROXIDE 3% 118 ML BOTTLE TP SCH ×2 (08:30→21:29)
[2018-04-28] MEDS: JEVITY 1.2 1000 ML LIQUID GT PRN (17:11)
[2018-04-28 20:53] VITALS: BP 107/69
[2018-04-28] MEDS: ATORVASTATIN 10 MG TABLET GT SCH (21:29)
[2018-04-29] MEDS: IPRATROPIUM BROMIDE 0.5 MG/2.5 ML NEBU NEB SCH ×6 (03:32→22:31)
[2018-04-29] MEDS: ALBUTEROL SULFATE 2.5 MG/3 ML NEBU NEB SCH ×6 (03:33→22:31)
[2018-04-29] MEDS: CHOLECALCIFEROL 1,000 UNIT TABLET GT SCH (05:59)
[2018-04-29] MEDS: BACLOFEN 10 MG TABLET GT SCH ×3 (05:59→21:31)
[2018-04-29] MEDS: BUDESONIDE 0.5 MG/2 ML NEBU NEB SCH ×2 (08:15→19:56)
[2018-04-29] MEDS: NUTRISOURCE FIBER 4 GM PACKET GT SCH ×2 (08:41→21:30)
[2018-04-29] MEDS: HYDROGEN PEROXIDE 3% 118 ML BOTTLE TP SCH ×2 (08:41→21:31)
[2018-04-29] MEDS: CALCIUM CARBONATE 500 MG TABLET GT SCH ×2 (08:41→21:30)
[2018-04-29] MEDS: DOCUSATE SODIUM 100 MG/10 ML LIQUID UDC GT SCH (08:41)
[2018-04-29] MEDS: Z GUARD REMEDY PASTE 57 GM TUBE TOP SCH ×2 (08:41→21:31)
[2018-04-29 11:50] VITALS: BP 118/64
[2018-04-29] MEDS: ATORVASTATIN 10 MG TABLET GT SCH (21:29)
[2018-04-29] MEDS: MULTIVIT, IRON, MIN NO. 8, FA TABLET GT SCH (21:30)
[2018-04-30] MEDS: IPRATROPIUM BROMIDE 0.5 MG/2.5 ML NEBU NEB SCH ×6 (02:40→22:31)
[2018-04-30] MEDS: ALBUTEROL SULFATE 2.5 MG/3 ML NEBU NEB SCH ×6 (02:40→22:31)
[2018-04-30] MEDS: BACLOFEN 10 MG TABLET GT SCH ×3 (05:51→22:09)
[2018-04-30] MEDS: CHOLECALCIFEROL 1,000 UNIT TABLET GT SCH (05:51)
[2018-04-30] MEDS: BUDESONIDE 0.5 MG/2 ML NEBU NEB SCH ×2 (07:01→19:22)
[2018-04-30] MEDS: DOCUSATE SODIUM 100 MG/10 ML LIQUID UDC GT SCH (08:47)
[2018-04-30] MEDS: NUTRISOURCE FIBER 4 GM PACKET GT SCH ×2 (08:47→21:00)
[2018-04-30] MEDS: Z GUARD REMEDY PASTE 57 GM TUBE TOP SCH ×2 (08:48→21:00)
[2018-04-30] MEDS: CALCIUM CARBONATE 500 MG TABLET GT SCH ×2 (08:48→21:00)
[2018-04-30] MEDS: HYDROGEN PEROXIDE 3% 118 ML BOTTLE TP SCH ×2 (08:48→21:00)
[2018-04-30] MEDS: JEVITY 1.2 1000 ML LIQUID GT PRN (14:19)
[2018-04-30 20:45] VITALS: BP 99/61
[2018-04-30] MEDS: ATORVASTATIN 10 MG TABLET GT SCH (21:00)
[2018-05-01] MEDS: IPRATROPIUM BROMIDE 0.5 MG/2.5 ML NEBU NEB SCH ×6 (02:30→23:36)
[2018-05-01] MEDS: ALBUTEROL SULFATE 2.5 MG/3 ML NEBU NEB SCH ×6 (02:30→23:36)
[2018-05-01] MEDS: BACLOFEN 10 MG TABLET GT SCH ×3 (05:53→21:37)
[2018-05-01] MEDS: CHOLECALCIFEROL 1,000 UNIT TABLET GT SCH (05:53)
[2018-05-01] MEDS: BUDESONIDE 0.5 MG/2 ML NEBU NEB SCH ×2 (07:02→20:19)
[2018-05-01 08:00] VITALS: BP 120/67
[2018-05-01] MEDS: DOCUSATE SODIUM 100 MG/10 ML LIQUID UDC GT SCH (08:50)
[2018-05-01] MEDS: NUTRISOURCE FIBER 4 GM PACKET GT SCH ×2 (08:51→21:36)
[2018-05-01] MEDS: Z GUARD REMEDY PASTE 57 GM TUBE TOP SCH ×2 (08:51→21:37)
[2018-05-01] MEDS: CALCIUM CARBONATE 500 MG TABLET GT SCH ×2 (08:51→21:36)
[2018-05-01] MEDS: HYDROGEN PEROXIDE 3% 118 ML BOTTLE TP SCH ×2 (08:51→21:37)
[2018-05-01 20:00] VITALS: BP 105/69
[2018-05-01] MEDS: ATORVASTATIN 10 MG TABLET GT SCH (21:36)
[2018-05-01] MEDS: MULTIVIT, IRON, MIN NO. 8, FA TABLET GT SCH (21:37)
[2018-05-02] MEDS: IPRATROPIUM BROMIDE 0.5 MG/2.5 ML NEBU NEB SCH ×6 (03:41→23:29)
[2018-05-02] MEDS: ALBUTEROL SULFATE 2.5 MG/3 ML NEBU NEB SCH ×6 (03:41→23:29)
[2018-05-02] MEDS: CHOLECALCIFEROL 1,000 UNIT TABLET GT SCH (06:14)
[2018-05-02] MEDS: BACLOFEN 10 MG TABLET GT SCH ×3 (06:14→21:39)
[2018-05-02] MEDS: BUDESONIDE 0.5 MG/2 ML NEBU NEB SCH ×2 (07:38→19:21)
[2018-05-02 08:00] VITALS: BP 136/91
[2018-05-02] MEDS: DOCUSATE SODIUM 100 MG/10 ML LIQUID UDC GT SCH (08:42)
[2018-05-02] MEDS: NUTRISOURCE FIBER 4 GM PACKET GT SCH ×2 (08:43→21:39)
[2018-05-02] MEDS: HYDROGEN PEROXIDE 3% 118 ML BOTTLE TP SCH ×2 (08:43→21:39)
[2018-05-02] MEDS: CALCIUM CARBONATE 500 MG TABLET GT SCH ×2 (08:43→21:39)
[2018-05-02] MEDS: Z GUARD REMEDY PASTE 57 GM TUBE TOP SCH ×2 (08:43→21:39)
[2018-05-02 20:34] VITALS: BP 106/55
[2018-05-02] MEDS: ATORVASTATIN 10 MG TABLET GT SCH (21:39)
[2018-05-03] MEDS: ALBUTEROL SULFATE 2.5 MG/3 ML NEBU NEB SCH ×6 (03:04→23:23)
[2018-05-03] MEDS: IPRATROPIUM BROMIDE 0.5 MG/2.5 ML NEBU NEB SCH ×6 (03:04→23:23)
[2018-05-03] MEDS: BACLOFEN 10 MG TABLET GT SCH ×3 (05:53→21:13)
[2018-05-03] MEDS: CHOLECALCIFEROL 1,000 UNIT TABLET GT SCH (05:53)
[2018-05-03] MEDS: BUDESONIDE 0.5 MG/2 ML NEBU NEB SCH ×2 (07:49→19:01)
[2018-05-03] MEDS: NUTRISOURCE FIBER 4 GM PACKET GT SCH ×2 (07:56→21:13)
[2018-05-03] MEDS: DOCUSATE SODIUM 100 MG/10 ML LIQUID UDC GT SCH (07:56)
[2018-05-03] MEDS: CALCIUM CARBONATE 500 MG TABLET GT SCH ×2 (07:57→21:13)
[2018-05-03] MEDS: Z GUARD REMEDY PASTE 57 GM TUBE TOP SCH ×2 (07:57→21:13)
[2018-05-03] MEDS: HYDROGEN PEROXIDE 3% 118 ML BOTTLE TP SCH ×2 (07:57→21:13)
[2018-05-03 08:15] VITALS: BP 147/80
[2018-05-03] MEDS: JEVITY 1.2 1000 ML LIQUID GT PRN (18:00)
[2018-05-03 20:00] VITALS: BP 135/78
[2018-05-03] MEDS: ATORVASTATIN 10 MG TABLET GT SCH (21:12)
[2018-05-03] MEDS: MULTIVIT, IRON, MIN NO. 8, FA TABLET GT SCH (21:13)
[2018-05-04] MEDS: ALBUTEROL SULFATE 2.5 MG/3 ML NEBU NEB SCH ×6 (03:07→22:30)
[2018-05-04] MEDS: IPRATROPIUM BROMIDE 0.5 MG/2.5 ML NEBU NEB SCH ×6 (03:07→22:30)
[2018-05-04] MEDS: CHOLECALCIFEROL 1,000 UNIT TABLET GT SCH (05:53)
[2018-05-04] MEDS: BACLOFEN 10 MG TABLET GT SCH ×3 (05:53→22:01)
[2018-05-04] MEDS: BUDESONIDE 0.5 MG/2 ML NEBU NEB SCH ×2 (07:13→18:57)
[2018-05-04] MEDS: NUTRISOURCE FIBER 4 GM PACKET GT SCH ×2 (08:23→20:48)
[2018-05-04] MEDS: CALCIUM CARBONATE 500 MG TABLET GT SCH ×2 (08:23→20:48)
[2018-05-04] MEDS: DOCUSATE SODIUM 100 MG/10 ML LIQUID UDC GT SCH (08:23)
[2018-05-04] MEDS: Z GUARD REMEDY PASTE 57 GM TUBE TOP SCH ×2 (08:23→20:48)
[2018-05-04] MEDS: HYDROGEN PEROXIDE 3% 118 ML BOTTLE TP SCH ×2 (08:24→20:48)
[2018-05-04 12:49] VITALS: BP 113/60
[2018-05-04] MEDS: JEVITY 1.2 1000 ML LIQUID GT PRN (16:12)
[2018-05-04 19:51] VITALS: BP 119/72
[2018-05-04] MEDS: ATORVASTATIN 10 MG TABLET GT SCH (20:48)
[2018-05-05] MEDS: IPRATROPIUM BROMIDE 0.5 MG/2.5 ML NEBU NEB SCH ×6 (03:36→22:30)
[2018-05-05] MEDS: ALBUTEROL SULFATE 2.5 MG/3 ML NEBU NEB SCH ×6 (03:36→22:30)
[2018-05-05] MEDS: BACLOFEN 10 MG TABLET GT SCH ×3 (05:20→21:55)
[2018-05-05] MEDS: CHOLECALCIFEROL 1,000 UNIT TABLET GT SCH (05:42)
[2018-05-05] MEDS: BUDESONIDE 0.5 MG/2 ML NEBU NEB SCH ×2 (07:11→19:10)
[2018-05-05 08:00] VITALS: BP 123/83
[2018-05-05] MEDS: CALCIUM CARBONATE 500 MG TABLET GT SCH ×2 (08:19→21:55)
[2018-05-05] MEDS: NUTRISOURCE FIBER 4 GM PACKET GT SCH ×2 (08:19→21:55)
[2018-05-05] MEDS: DOCUSATE SODIUM 100 MG/10 ML LIQUID UDC GT SCH (08:19)
[2018-05-05] MEDS: HYDROGEN PEROXIDE 3% 118 ML BOTTLE TP SCH ×2 (08:20→21:55)
[2018-05-05] MEDS: Z GUARD REMEDY PASTE 57 GM TUBE TOP SCH ×2 (08:20→21:55)
[2018-05-05 11:44] VITALS: BP 131/77
[2018-05-05] MEDS: JEVITY 1.2 1000 ML LIQUID GT PRN (14:30)
--- NOTE | 2018-05-05 15:12 | NUR ---
PT. SEEN BY FRANCIA JETER.
[2018-05-05 21:38] VITALS: BP 120/62
[2018-05-05] MEDS: ATORVASTATIN 10 MG TABLET GT SCH (21:55)
[2018-05-05] MEDS: MULTIVIT, IRON, MIN NO. 8, FA TABLET GT SCH (21:55)
[2018-05-06] MEDS: IPRATROPIUM BROMIDE 0.5 MG/2.5 ML NEBU NEB SCH ×6 (02:30→22:30)
[2018-05-06] MEDS: ALBUTEROL SULFATE 2.5 MG/3 ML NEBU NEB SCH ×6 (02:30→22:30)
[2018-05-06] MEDS: BACLOFEN 10 MG TABLET GT SCH ×2 (06:13→22:00)
[2018-05-06] MEDS: CHOLECALCIFEROL 1,000 UNIT TABLET GT SCH (06:13)
[2018-05-06] MEDS: BUDESONIDE 0.5 MG/2 ML NEBU NEB SCH ×2 (07:10→19:08)
[2018-05-06 08:06] VITALS: BP 119/64
[2018-05-06] MEDS: Z GUARD REMEDY PASTE 57 GM TUBE TOP SCH ×2 (09:11→21:41)
[2018-05-06] MEDS: DOCUSATE SODIUM 100 MG/10 ML LIQUID UDC GT SCH (09:11)
[2018-05-06] MEDS: NUTRISOURCE FIBER 4 GM PACKET GT SCH ×2 (09:11→21:40)
[2018-05-06] MEDS: CALCIUM CARBONATE 500 MG TABLET GT SCH ×2 (09:11→21:41)
[2018-05-06] MEDS: HYDROGEN PEROXIDE 3% 118 ML BOTTLE TP SCH ×2 (09:11→21:41)
[2018-05-06] MEDS: JEVITY 1.2 1000 ML LIQUID GT PRN (17:11)
[2018-05-06 20:00] VITALS: BP 128/80
[2018-05-06] MEDS: ATORVASTATIN 10 MG TABLET GT SCH (21:40)
[2018-05-07] MEDS: ALBUTEROL SULFATE 2.5 MG/3 ML NEBU NEB SCH ×6 (02:30→23:46)
[2018-05-07] MEDS: IPRATROPIUM BROMIDE 0.5 MG/2.5 ML NEBU NEB SCH ×6 (02:30→23:46)
[2018-05-07] MEDS: CHOLECALCIFEROL 1,000 UNIT TABLET GT SCH (06:18)
[2018-05-07] MEDS: BACLOFEN 10 MG TABLET GT SCH ×3 (06:18→22:05)
[2018-05-07] MEDS: BUDESONIDE 0.5 MG/2 ML NEBU NEB SCH ×2 (06:59→19:15)
[2018-05-07 08:07] VITALS: BP 125/76
[2018-05-07] MEDS: DOCUSATE SODIUM 100 MG/10 ML LIQUID UDC GT SCH (09:18)
[2018-05-07] MEDS: Z GUARD REMEDY PASTE 57 GM TUBE TOP SCH ×2 (09:18→21:00)
[2018-05-07] MEDS: HYDROGEN PEROXIDE 3% 118 ML BOTTLE TP SCH ×2 (09:18→21:00)
[2018-05-07] MEDS: CALCIUM CARBONATE 500 MG TABLET GT SCH ×2 (09:18→21:00)
[2018-05-07] MEDS: NUTRISOURCE FIBER 4 GM PACKET GT SCH ×2 (09:18→21:00)
[2018-05-07] MEDS: JEVITY 1.2 1000 ML LIQUID GT PRN (16:38)
[2018-05-07] MEDS: MULTIVIT, IRON, MIN NO. 8, FA TABLET GT SCH (21:00)
[2018-05-07] MEDS: ATORVASTATIN 10 MG TABLET GT SCH (21:00)
[2018-05-07 21:09] VITALS: BP 135/80
[2018-05-08] MEDS: IPRATROPIUM BROMIDE 0.5 MG/2.5 ML NEBU NEB SCH ×6 (03:22→22:40)
[2018-05-08] MEDS: ALBUTEROL SULFATE 2.5 MG/3 ML NEBU NEB SCH ×6 (03:22→22:40)
[2018-05-08] MEDS: CHOLECALCIFEROL 1,000 UNIT TABLET GT SCH (06:19)
[2018-05-08] MEDS: BACLOFEN 10 MG TABLET GT SCH ×3 (06:19→21:27)
[2018-05-08] MEDS: BUDESONIDE 0.5 MG/2 ML NEBU NEB SCH ×2 (07:04→19:21)
[2018-05-08 08:05] VITALS: BP 141/81
[2018-05-08] MEDS: NUTRISOURCE FIBER 4 GM PACKET GT SCH ×2 (09:57→21:26)
[2018-05-08] MEDS: HYDROGEN PEROXIDE 3% 118 ML BOTTLE TP SCH ×2 (09:57→21:27)
[2018-05-08] MEDS: DOCUSATE SODIUM 100 MG/10 ML LIQUID UDC GT SCH (09:57)
[2018-05-08] MEDS: CALCIUM CARBONATE 500 MG TABLET GT SCH ×2 (09:57→21:26)
[2018-05-08] MEDS: Z GUARD REMEDY PASTE 57 GM TUBE TOP SCH ×2 (09:57→21:26)
[2018-05-08] MEDS: JEVITY 1.2 1000 ML LIQUID GT PRN (15:11)
--- NOTE | 2018-05-08 16:37 | NUR ---
INTERDISCIPLINARY PLAN OF CARE CONFERENCE was held today. Patient's family is unable to attend the meeting due to living [id number]. Dr. Underwood and the Interdisciplinary Team reviewed the current plan of care in detail. RN provided a report on patient's current medical condition. See RN IDT conference notes. No major changes were reported. See all other disciplines IDT notes and physician's progress notes for additional details.
[2018-05-08 17:42] LABS: BASOPHILS % (AUTO) 0.7 % (0.0-2.0); EOSINOPHILS # (AUTO) 0.3 K/uL (0.0-0.7); EOSINOPHILS % (AUTO) 5.6 % (0.0-7.0); HEMATOCRIT 40.8 % (31.2-41.9); HEMOGLOBIN 14.1 g/dL (10.9-14.3); LYMPHOCYTES # (AUTO) 1.4 K/uL (20.0-40.0); LYMPHOCYTES % (AUTO) 30.5 % (20.5-51.5); MEAN CORPUSCULAR HGB CONC 35 g/dL (32.3-35.6); MEAN CORPUSCULAR VOLUME 95.3 fL (75.5-95.3); MONOCYTES # (AUTO) 0.5 K/uL (2.0-10.0); MONOCYTES % (AUTO) 11.6 % (0.0-11.0); NEUTROPHILS # (AUTO) 2.4 K/uL (1.8-8.9); NEUTROPHILS % (AUTO) 51.6 % (38.5-71.5); PLATELET COUNT (AUTO) 169 K/uL (179-408); RED BLOOD CELL COUNT(AUTO) 4.28 MIL/uL (3.63-4.92); WHITE BLOOD COUNT (AUTO) 4.6 K/uL (3.8-11.8)
[2018-05-08] MEDS: ATORVASTATIN 10 MG TABLET GT SCH (21:26)
[2018-05-08 22:18] VITALS: BP 159/93
[2018-05-09] MEDS: IPRATROPIUM BROMIDE 0.5 MG/2.5 ML NEBU NEB SCH ×6 (02:30→22:30)
[2018-05-09] MEDS: ALBUTEROL SULFATE 2.5 MG/3 ML NEBU NEB SCH ×6 (02:30→22:30)
[2018-05-09] MEDS: BACLOFEN 10 MG TABLET GT SCH ×3 (05:54→22:08)
[2018-05-09] MEDS: CHOLECALCIFEROL 1,000 UNIT TABLET GT SCH (05:54)
[2018-05-09] MEDS: BUDESONIDE 0.5 MG/2 ML NEBU NEB SCH ×2 (07:16→19:15)
[2018-05-09] MEDS: HYDROGEN PEROXIDE 3% 118 ML BOTTLE TP SCH ×2 (09:00→21:00)
[2018-05-09] MEDS: Z GUARD REMEDY PASTE 57 GM TUBE TOP SCH ×2 (09:00→21:00)
[2018-05-09] MEDS: CALCIUM CARBONATE 500 MG TABLET GT SCH ×2 (09:00→21:00)
[2018-05-09] MEDS: DOCUSATE SODIUM 100 MG/10 ML LIQUID UDC GT SCH (09:00)
[2018-05-09] MEDS: NUTRISOURCE FIBER 4 GM PACKET GT SCH ×2 (09:00→21:00)
[2018-05-09 11:52] VITALS: BP 122/58
[2018-05-09] MEDS: JEVITY 1.2 1000 ML LIQUID GT PRN (15:41)
[2018-05-09 20:00] VITALS: BP 136/80
[2018-05-09] MEDS: MULTIVIT, IRON, MIN NO. 8, FA TABLET GT SCH (21:00)
[2018-05-09] MEDS: ATORVASTATIN 10 MG TABLET GT SCH (21:00)
--- NOTE | 2018-05-09 23:36 | NUR ---
Still with right leg swelling, elevated leg , handled very gently, no signs of pain or discomfort, kept clean and comfortable.
[2018-05-10] MEDS: IPRATROPIUM BROMIDE 0.5 MG/2.5 ML NEBU NEB SCH ×6 (03:50→23:54)
[2018-05-10] MEDS: ALBUTEROL SULFATE 2.5 MG/3 ML NEBU NEB SCH ×6 (03:50→23:54)
[2018-05-10] MEDS: CHOLECALCIFEROL 1,000 UNIT TABLET GT SCH (06:17)
[2018-05-10] MEDS: BACLOFEN 10 MG TABLET GT SCH ×3 (06:17→22:04)
[2018-05-10] MEDS: BUDESONIDE 0.5 MG/2 ML NEBU NEB SCH ×2 (07:50→19:18)
[2018-05-10 08:00] VITALS: BP 114/63
[2018-05-10] MEDS: CALCIUM CARBONATE 500 MG TABLET GT SCH ×2 (08:33→20:15)
[2018-05-10] MEDS: DOCUSATE SODIUM 100 MG/10 ML LIQUID UDC GT SCH (08:33)
[2018-05-10] MEDS: Z GUARD REMEDY PASTE 57 GM TUBE TOP SCH ×2 (08:33→20:15)
[2018-05-10] MEDS: NUTRISOURCE FIBER 4 GM PACKET GT SCH ×2 (08:33→20:15)
[2018-05-10] MEDS: HYDROGEN PEROXIDE 3% 118 ML BOTTLE TP SCH ×2 (08:33→20:15)
[2018-05-10] MEDS: JEVITY 1.2 1000 ML LIQUID GT PRN (16:13)
[2018-05-10] MEDS: ATORVASTATIN 10 MG TABLET GT SCH (20:15)
[2018-05-10 20:44] VITALS: BP 112/67
[2018-05-11] MEDS: IPRATROPIUM BROMIDE 0.5 MG/2.5 ML NEBU NEB SCH ×6 (03:59→23:52)
[2018-05-11] MEDS: ALBUTEROL SULFATE 2.5 MG/3 ML NEBU NEB SCH ×6 (03:59→23:52)
[2018-05-11] MEDS: CHOLECALCIFEROL 1,000 UNIT TABLET GT SCH (05:01)
[2018-05-11] MEDS: BACLOFEN 10 MG TABLET GT SCH ×3 (05:01→22:15)
[2018-05-11] MEDS: BUDESONIDE 0.5 MG/2 ML NEBU NEB SCH ×2 (08:02→19:42)
[2018-05-11] MEDS: Z GUARD REMEDY PASTE 57 GM TUBE TOP SCH ×2 (09:00→21:15)
[2018-05-11] MEDS: NUTRISOURCE FIBER 4 GM PACKET GT SCH ×2 (09:00→21:15)
[2018-05-11] MEDS: CALCIUM CARBONATE 500 MG TABLET GT SCH ×2 (09:00→21:15)
[2018-05-11] MEDS: HYDROGEN PEROXIDE 3% 118 ML BOTTLE TP SCH ×2 (09:00→21:16)
[2018-05-11] MEDS: DOCUSATE SODIUM 100 MG/10 ML LIQUID UDC GT SCH (09:00)
[2018-05-11 12:16] VITALS: BP 115/72
[2018-05-11] MEDS: JEVITY 1.2 1000 ML LIQUID GT PRN (19:00)
[2018-05-11 20:16] VITALS: BP 109/75
[2018-05-11] MEDS: MULTIVIT, IRON, MIN NO. 8, FA TABLET GT SCH (21:15)
[2018-05-11] MEDS: ATORVASTATIN 10 MG TABLET GT SCH (21:15)
[2018-05-12] MEDS: IPRATROPIUM BROMIDE 0.5 MG/2.5 ML NEBU NEB SCH ×6 (03:33→23:38)
[2018-05-12] MEDS: ALBUTEROL SULFATE 2.5 MG/3 ML NEBU NEB SCH ×6 (03:33→23:38)
[2018-05-12] MEDS: BACLOFEN 10 MG TABLET GT SCH ×3 (05:03→21:56)
[2018-05-12] MEDS: CHOLECALCIFEROL 1,000 UNIT TABLET GT SCH (05:03)
[2018-05-12] MEDS: BUDESONIDE 0.5 MG/2 ML NEBU NEB SCH ×2 (08:02→20:55)
[2018-05-12 08:07] VITALS: BP 113/76
[2018-05-12] MEDS: Z GUARD REMEDY PASTE 57 GM TUBE TOP SCH ×2 (09:31→21:55)
[2018-05-12] MEDS: CALCIUM CARBONATE 500 MG TABLET GT SCH ×2 (09:31→21:57)
[2018-05-12] MEDS: NUTRISOURCE FIBER 4 GM PACKET GT SCH ×2 (09:31→21:55)
[2018-05-12] MEDS: DOCUSATE SODIUM 100 MG/10 ML LIQUID UDC GT SCH (09:31)
[2018-05-12] MEDS: HYDROGEN PEROXIDE 3% 118 ML BOTTLE TP SCH ×2 (09:32→21:55)
[2018-05-12] MEDS: JEVITY 1.2 1000 ML LIQUID GT PRN (18:20)
[2018-05-12 20:13] VITALS: BP 133/82
[2018-05-12] MEDS: ATORVASTATIN 10 MG TABLET GT SCH (21:55)
[2018-05-13] MEDS: IPRATROPIUM BROMIDE 0.5 MG/2.5 ML NEBU NEB SCH ×6 (03:09→22:59)
[2018-05-13] MEDS: ALBUTEROL SULFATE 2.5 MG/3 ML NEBU NEB SCH ×6 (03:09→22:59)
[2018-05-13] MEDS: BACLOFEN 10 MG TABLET GT SCH ×3 (05:57→22:07)
[2018-05-13] MEDS: CHOLECALCIFEROL 1,000 UNIT TABLET GT SCH (05:58)
[2018-05-13] MEDS: BUDESONIDE 0.5 MG/2 ML NEBU NEB SCH ×2 (07:05→19:14)
[2018-05-13 08:06] VITALS: BP 116/77
[2018-05-13] MEDS: HYDROGEN PEROXIDE 3% 118 ML BOTTLE TP SCH ×2 (08:24→21:00)
[2018-05-13] MEDS: DOCUSATE SODIUM 100 MG/10 ML LIQUID UDC GT SCH (08:24)
[2018-05-13] MEDS: NUTRISOURCE FIBER 4 GM PACKET GT SCH ×2 (08:24→21:00)
[2018-05-13] MEDS: Z GUARD REMEDY PASTE 57 GM TUBE TOP SCH ×2 (08:24→21:00)
[2018-05-13] MEDS: CALCIUM CARBONATE 500 MG TABLET GT SCH ×2 (08:25→21:00)
[2018-05-13] MEDS: BISACODYL 10 MG SUPP.RECT RC PRN (13:20)
[2018-05-13] MEDS: JEVITY 1.2 1000 ML LIQUID GT PRN (18:36)
[2018-05-13 20:00] VITALS: BP 121/87
[2018-05-13] MEDS: MULTIVIT, IRON, MIN NO. 8, FA TABLET GT SCH (21:00)
[2018-05-13] MEDS: ATORVASTATIN 10 MG TABLET GT SCH (21:30)
[2018-05-14] MEDS: IPRATROPIUM BROMIDE 0.5 MG/2.5 ML NEBU NEB SCH ×6 (02:30→22:30)
[2018-05-14] MEDS: ALBUTEROL SULFATE 2.5 MG/3 ML NEBU NEB SCH ×6 (02:30→22:30)
[2018-05-14] MEDS: CHOLECALCIFEROL 1,000 UNIT TABLET GT SCH (05:51)
[2018-05-14] MEDS: BACLOFEN 10 MG TABLET GT SCH ×3 (05:51→21:45)
[2018-05-14 08:06] VITALS: BP 139/90
[2018-05-14] MEDS: BUDESONIDE 0.5 MG/2 ML NEBU NEB SCH ×2 (08:19→19:21)
[2018-05-14] MEDS: CALCIUM CARBONATE 500 MG TABLET GT SCH ×2 (09:00→21:45)
[2018-05-14] MEDS: DOCUSATE SODIUM 100 MG/10 ML LIQUID UDC GT SCH (09:00)
[2018-05-14] MEDS: HYDROGEN PEROXIDE 3% 118 ML BOTTLE TP SCH ×2 (09:00→21:45)
[2018-05-14] MEDS: Z GUARD REMEDY PASTE 57 GM TUBE TOP SCH ×2 (09:00→21:45)
[2018-05-14] MEDS: NUTRISOURCE FIBER 4 GM PACKET GT SCH ×2 (09:00→21:43)
--- NOTE | 2018-05-14 09:40 | NUR ---
Pharmacy Update from 05/08/18 IDT Meeting: VS: Temp 98 BP 114/67 HR 62 LABS: (from 02/06/18, no new labs) Wbc 4.3H/H 13.8/39.6Plt 147 Na 140K 4.4Cl 103CO2 27BUN/SCr 19/0.7 BS 98Ca 9.1 MEDICATION USE REVIEWED: > Pt not on any anti-psych or anti-seizure medications > PRN MED USAGE: (Mar) Tylenol for pain used x 0 Tylenol for temp used x 0 Bisacodyl PRN x 1 NEW ORDERS NOTED: > NA Pt was reviewed and discussed in depth, no medication concerns or issues reported at this time, no further recs from rx at this time. Will continue to follow
[2018-05-14 20:00] VITALS: BP 157/95
[2018-05-14] MEDS: ATORVASTATIN 10 MG TABLET GT SCH (21:43)
[2018-05-15] MEDS: ALBUTEROL SULFATE 2.5 MG/3 ML NEBU NEB SCH ×6 (02:30→23:46)
[2018-05-15] MEDS: IPRATROPIUM BROMIDE 0.5 MG/2.5 ML NEBU NEB SCH ×6 (02:30→23:46)
[2018-05-15] MEDS: BACLOFEN 10 MG TABLET GT SCH ×3 (05:53→21:43)
[2018-05-15] MEDS: CHOLECALCIFEROL 1,000 UNIT TABLET GT SCH (05:53)
[2018-05-15] MEDS: BUDESONIDE 0.5 MG/2 ML NEBU NEB SCH ×2 (07:11→19:11)
[2018-05-15 08:00] VITALS: BP 116/61
[2018-05-15] MEDS: NUTRISOURCE FIBER 4 GM PACKET GT SCH ×2 (08:56→21:43)
[2018-05-15] MEDS: CALCIUM CARBONATE 500 MG TABLET GT SCH ×2 (08:56→21:43)
[2018-05-15] MEDS: HYDROGEN PEROXIDE 3% 118 ML BOTTLE TP SCH ×2 (08:56→21:43)
[2018-05-15] MEDS: Z GUARD REMEDY PASTE 57 GM TUBE TOP SCH ×2 (08:56→21:43)
[2018-05-15] MEDS: DOCUSATE SODIUM 100 MG/10 ML LIQUID UDC GT SCH (08:56)
--- NOTE | 2018-05-15 09:00 | NUR ---
Seen by ANN MARIE Young ,no new orders.
--- NOTE | 2018-05-15 10:00 | NUR ---
Seen by Myrtle Shea,no new orders.
[2018-05-15] MEDS: JEVITY 1.2 1000 ML LIQUID GT PRN (14:24)
[2018-05-15 20:40] VITALS: BP 136/80
[2018-05-15] MEDS: ATORVASTATIN 10 MG TABLET GT SCH (21:43)
[2018-05-15] MEDS: MULTIVIT, IRON, MIN NO. 8, FA TABLET GT SCH (21:43)
[2018-05-16] MEDS: ALBUTEROL SULFATE 2.5 MG/3 ML NEBU NEB SCH ×6 (02:57→22:30)
[2018-05-16] MEDS: IPRATROPIUM BROMIDE 0.5 MG/2.5 ML NEBU NEB SCH ×6 (02:57→22:30)
[2018-05-16] MEDS: CHOLECALCIFEROL 1,000 UNIT TABLET GT SCH (05:31)
[2018-05-16] MEDS: BACLOFEN 10 MG TABLET GT SCH ×3 (05:31→21:33)
[2018-05-16] MEDS: BUDESONIDE 0.5 MG/2 ML NEBU NEB SCH ×2 (08:08→19:17)
[2018-05-16] MEDS: Z GUARD REMEDY PASTE 57 GM TUBE TOP SCH ×2 (09:00→21:33)
[2018-05-16] MEDS: HYDROGEN PEROXIDE 3% 118 ML BOTTLE TP SCH ×2 (09:00→21:33)
[2018-05-16] MEDS: CALCIUM CARBONATE 500 MG TABLET GT SCH ×2 (09:00→21:33)
[2018-05-16] MEDS: DOCUSATE SODIUM 100 MG/10 ML LIQUID UDC GT SCH (10:00)
[2018-05-16] MEDS: NUTRISOURCE FIBER 4 GM PACKET GT SCH ×2 (10:00→21:33)
[2018-05-16 15:35] VITALS: BP 94/51
--- NOTE | 2018-05-16 18:23 | NUR ---
SEEN BY DR. ALBERTO JETER.
[2018-05-16 20:15] VITALS: BP 113/72
[2018-05-16] MEDS: ATORVASTATIN 10 MG TABLET GT SCH (21:33)
[2018-05-17] MEDS: ALBUTEROL SULFATE 2.5 MG/3 ML NEBU NEB SCH ×6 (02:32→23:52)
[2018-05-17] MEDS: IPRATROPIUM BROMIDE 0.5 MG/2.5 ML NEBU NEB SCH ×6 (02:32→23:52)
[2018-05-17] MEDS: BACLOFEN 10 MG TABLET GT SCH ×3 (05:31→21:50)
[2018-05-17] MEDS: CHOLECALCIFEROL 1,000 UNIT TABLET GT SCH (05:31)
[2018-05-17] MEDS: BUDESONIDE 0.5 MG/2 ML NEBU NEB SCH ×2 (07:30→20:51)
[2018-05-17] MEDS: HYDROGEN PEROXIDE 3% 118 ML BOTTLE TP SCH ×2 (09:05→21:50)
[2018-05-17] MEDS: CALCIUM CARBONATE 500 MG TABLET GT SCH ×2 (09:05→21:50)
[2018-05-17] MEDS: NUTRISOURCE FIBER 4 GM PACKET GT SCH ×2 (09:05→21:50)
[2018-05-17] MEDS: DOCUSATE SODIUM 100 MG/10 ML LIQUID UDC GT SCH (09:05)
[2018-05-17] MEDS: Z GUARD REMEDY PASTE 57 GM TUBE TOP SCH ×2 (09:05→21:50)
--- NOTE | 2018-05-17 13:09 | NUR ---
SEEN BY HALINA JETER.
--- NOTE | 2018-05-17 15:12 | NUR ---
PT'S SISTER CONSENTED FLU VACCINE ADMINISTRATION.
[2018-05-17 15:20] VITALS: BP 110/69
[2018-05-17 20:18] VITALS: BP 117/71
[2018-05-17] MEDS: ATORVASTATIN 10 MG TABLET GT SCH (21:50)
[2018-05-17] MEDS: MULTIVIT, IRON, MIN NO. 8, FA TABLET GT SCH (21:50)
[2018-05-18] MEDS: ALBUTEROL SULFATE 2.5 MG/3 ML NEBU NEB SCH ×6 (03:17→22:58)
[2018-05-18] MEDS: IPRATROPIUM BROMIDE 0.5 MG/2.5 ML NEBU NEB SCH ×6 (03:17→22:58)
[2018-05-18] MEDS: BACLOFEN 10 MG TABLET GT SCH ×3 (05:52→21:57)
[2018-05-18] MEDS: CHOLECALCIFEROL 1,000 UNIT TABLET GT SCH (05:52)
[2018-05-18] MEDS: BUDESONIDE 0.5 MG/2 ML NEBU NEB SCH ×2 (07:21→19:30)
[2018-05-18] MEDS: CALCIUM CARBONATE 500 MG TABLET GT SCH ×2 (09:00→21:57)
[2018-05-18] MEDS: DOCUSATE SODIUM 100 MG/10 ML LIQUID UDC GT SCH (09:00)
[2018-05-18] MEDS: NUTRISOURCE FIBER 4 GM PACKET GT SCH ×2 (09:00→21:57)
[2018-05-18] MEDS: Z GUARD REMEDY PASTE 57 GM TUBE TOP SCH ×2 (09:00→21:57)
[2018-05-18] MEDS: HYDROGEN PEROXIDE 3% 118 ML BOTTLE TP SCH ×2 (09:00→21:57)
[2018-05-18 13:18] VITALS: BP 120/60
[2018-05-18 20:12] VITALS: BP 105/71
[2018-05-18] MEDS: ATORVASTATIN 10 MG TABLET GT SCH (21:57)
[2018-05-19] MEDS: ALBUTEROL SULFATE 2.5 MG/3 ML NEBU NEB SCH ×6 (02:30→22:58)
[2018-05-19] MEDS: IPRATROPIUM BROMIDE 0.5 MG/2.5 ML NEBU NEB SCH ×6 (02:30→22:58)
[2018-05-19] MEDS: BACLOFEN 10 MG TABLET GT SCH ×3 (06:05→21:53)
[2018-05-19] MEDS: CHOLECALCIFEROL 1,000 UNIT TABLET GT SCH (06:06)
[2018-05-19] MEDS: BUDESONIDE 0.5 MG/2 ML NEBU NEB SCH ×2 (06:58→19:18)
[2018-05-19] MEDS: BISACODYL 10 MG SUPP.RECT RC PRN (07:44)
--- NOTE | 2018-05-19 08:08 | NUR ---
SEEN BY FRANCIA JETER.
[2018-05-19] MEDS: NUTRISOURCE FIBER 4 GM PACKET GT SCH ×2 (08:11→21:53)
[2018-05-19] MEDS: HYDROGEN PEROXIDE 3% 118 ML BOTTLE TP SCH ×2 (08:11→21:53)
[2018-05-19] MEDS: CALCIUM CARBONATE 500 MG TABLET GT SCH ×2 (08:11→21:53)
[2018-05-19] MEDS: DOCUSATE SODIUM 100 MG/10 ML LIQUID UDC GT SCH (08:11)
[2018-05-19] MEDS: Z GUARD REMEDY PASTE 57 GM TUBE TOP SCH ×2 (08:11→21:53)
[2018-05-19 11:33] VITALS: BP 111/62
[2018-05-19] MEDS: JEVITY 1.2 1000 ML LIQUID GT PRN (19:03)
[2018-05-19 20:24] VITALS: BP 110/77
[2018-05-19] MEDS: MULTIVIT, IRON, MIN NO. 8, FA TABLET GT SCH (21:53)
[2018-05-19] MEDS: ATORVASTATIN 10 MG TABLET GT SCH (21:53)
[2018-05-20] MEDS: IPRATROPIUM BROMIDE 0.5 MG/2.5 ML NEBU NEB SCH ×6 (02:31→22:30)
[2018-05-20] MEDS: ALBUTEROL SULFATE 2.5 MG/3 ML NEBU NEB SCH ×6 (02:31→22:30)
[2018-05-20] MEDS: BACLOFEN 10 MG TABLET GT SCH ×3 (06:11→22:20)
[2018-05-20] MEDS: CHOLECALCIFEROL 1,000 UNIT TABLET GT SCH (06:11)
[2018-05-20] MEDS: BUDESONIDE 0.5 MG/2 ML NEBU NEB SCH ×2 (08:10→19:05)
[2018-05-20 08:42] VITALS: BP 143/89
[2018-05-20] MEDS: CALCIUM CARBONATE 500 MG TABLET GT SCH ×2 (08:55→21:10)
[2018-05-20] MEDS: Z GUARD REMEDY PASTE 57 GM TUBE TOP SCH ×2 (08:55→21:10)
[2018-05-20] MEDS: NUTRISOURCE FIBER 4 GM PACKET GT SCH ×2 (08:55→21:10)
[2018-05-20] MEDS: DOCUSATE SODIUM 100 MG/10 ML LIQUID UDC GT SCH (08:55)
[2018-05-20] MEDS: HYDROGEN PEROXIDE 3% 118 ML BOTTLE TP SCH ×2 (08:56→21:10)
--- NOTE | 2018-05-20 14:00 | NUR ---
SEEN BY GARETH JETER.
[2018-05-20 20:00] VITALS: BP 123/73
[2018-05-20] MEDS: ATORVASTATIN 10 MG TABLET GT SCH (21:10)
[2018-05-21] MEDS: IPRATROPIUM BROMIDE 0.5 MG/2.5 ML NEBU NEB SCH ×5 (02:30→19:37)
[2018-05-21] MEDS: ALBUTEROL SULFATE 2.5 MG/3 ML NEBU NEB SCH ×5 (02:30→19:37)
[2018-05-21] MEDS: BACLOFEN 10 MG TABLET GT SCH ×3 (06:00→22:05)
[2018-05-21] MEDS: CHOLECALCIFEROL 1,000 UNIT TABLET GT SCH (07:24)
[2018-05-21] MEDS: BUDESONIDE 0.5 MG/2 ML NEBU NEB SCH ×2 (07:56→20:08)
[2018-05-21 08:08] VITALS: BP 121/66
[2018-05-21] MEDS: DOCUSATE SODIUM 100 MG/10 ML LIQUID UDC GT SCH (09:17)
[2018-05-21] MEDS: NUTRISOURCE FIBER 4 GM PACKET GT SCH ×2 (09:17→21:00)
[2018-05-21] MEDS: CALCIUM CARBONATE 500 MG TABLET GT SCH ×2 (09:17→21:00)
[2018-05-21] MEDS: Z GUARD REMEDY PASTE 57 GM TUBE TOP SCH ×2 (09:18→21:00)
[2018-05-21] MEDS: HYDROGEN PEROXIDE 3% 118 ML BOTTLE TP SCH ×2 (09:18→21:00)
[2018-05-21] MEDS: JEVITY 1.2 1000 ML LIQUID GT PRN (13:42)
[2018-05-21 20:00] VITALS: BP 111/64
[2018-05-21] MEDS: MULTIVIT, IRON, MIN NO. 8, FA TABLET GT SCH (21:00)
[2018-05-21] MEDS: ATORVASTATIN 10 MG TABLET GT SCH (21:00)
[2018-05-22] MEDS: ALBUTEROL SULFATE 2.5 MG/3 ML NEBU NEB SCH ×7 (00:09→22:58)
[2018-05-22] MEDS: IPRATROPIUM BROMIDE 0.5 MG/2.5 ML NEBU NEB SCH ×7 (00:09→22:58)
[2018-05-22] MEDS: BACLOFEN 10 MG TABLET GT SCH ×3 (05:38→22:02)
[2018-05-22] MEDS: CHOLECALCIFEROL 1,000 UNIT TABLET GT SCH (05:38)
[2018-05-22] MEDS: BUDESONIDE 0.5 MG/2 ML NEBU NEB SCH ×2 (07:56→19:38)
[2018-05-22 08:06] VITALS: BP 130/80
[2018-05-22] MEDS: Z GUARD REMEDY PASTE 57 GM TUBE TOP SCH ×2 (09:00→21:00)
[2018-05-22] MEDS: DOCUSATE SODIUM 100 MG/10 ML LIQUID UDC GT SCH (09:00)
[2018-05-22] MEDS: CALCIUM CARBONATE 500 MG TABLET GT SCH ×2 (09:00→21:00)
[2018-05-22] MEDS: HYDROGEN PEROXIDE 3% 118 ML BOTTLE TP SCH ×2 (09:00→21:00)
[2018-05-22] MEDS: NUTRISOURCE FIBER 4 GM PACKET GT SCH ×2 (09:00→21:00)
[2018-05-22 20:00] VITALS: BP 129/86
[2018-05-22] MEDS: ATORVASTATIN 10 MG TABLET GT SCH (21:00)
[2018-05-23] MEDS: IPRATROPIUM BROMIDE 0.5 MG/2.5 ML NEBU NEB SCH ×6 (02:58→22:40)
[2018-05-23] MEDS: ALBUTEROL SULFATE 2.5 MG/3 ML NEBU NEB SCH ×6 (02:58→22:40)
[2018-05-23] MEDS: JEVITY 1.2 1000 ML LIQUID GT PRN (06:27)
[2018-05-23] MEDS: CHOLECALCIFEROL 1,000 UNIT TABLET GT SCH (06:27)
[2018-05-23] MEDS: BACLOFEN 10 MG TABLET GT SCH ×3 (06:27→21:54)
[2018-05-23] MEDS: BUDESONIDE 0.5 MG/2 ML NEBU NEB SCH ×2 (07:11→19:08)
[2018-05-23 07:43] VITALS: BP 126/81
[2018-05-23] MEDS: CALCIUM CARBONATE 500 MG TABLET GT SCH ×2 (09:50→21:53)
[2018-05-23] MEDS: DOCUSATE SODIUM 100 MG/10 ML LIQUID UDC GT SCH (09:50)
[2018-05-23] MEDS: HYDROGEN PEROXIDE 3% 118 ML BOTTLE TP SCH ×2 (09:50→21:54)
[2018-05-23] MEDS: NUTRISOURCE FIBER 4 GM PACKET GT SCH ×2 (09:50→21:53)
[2018-05-23] MEDS: Z GUARD REMEDY PASTE 57 GM TUBE TOP SCH ×2 (09:50→21:54)
[2018-05-23 20:00] VITALS: BP 95/62
[2018-05-23] MEDS: ATORVASTATIN 10 MG TABLET GT SCH (21:53)
[2018-05-23] MEDS: MULTIVIT, IRON, MIN NO. 8, FA TABLET GT SCH (21:53)
[2018-05-24] MEDS: IPRATROPIUM BROMIDE 0.5 MG/2.5 ML NEBU NEB SCH ×6 (02:30→23:57)
[2018-05-24] MEDS: ALBUTEROL SULFATE 2.5 MG/3 ML NEBU NEB SCH ×6 (02:30→23:57)
[2018-05-24] MEDS: CHOLECALCIFEROL 1,000 UNIT TABLET GT SCH (05:35)
[2018-05-24] MEDS: BACLOFEN 10 MG TABLET GT SCH ×3 (05:35→22:05)
[2018-05-24] MEDS: BISACODYL 10 MG SUPP.RECT RC PRN (06:46)
[2018-05-24] MEDS: BUDESONIDE 0.5 MG/2 ML NEBU NEB SCH ×2 (07:04→20:57)
[2018-05-24] MEDS: NUTRISOURCE FIBER 4 GM PACKET GT SCH ×2 (08:11→21:00)
[2018-05-24] MEDS: DOCUSATE SODIUM 100 MG/10 ML LIQUID UDC GT SCH (08:11)
[2018-05-24] MEDS: HYDROGEN PEROXIDE 3% 118 ML BOTTLE TP SCH ×2 (08:11→21:00)
[2018-05-24] MEDS: CALCIUM CARBONATE 500 MG TABLET GT SCH ×2 (08:11→21:00)
[2018-05-24] MEDS: Z GUARD REMEDY PASTE 57 GM TUBE TOP SCH ×2 (08:11→21:00)
[2018-05-24 15:12] VITALS: BP 115/72
[2018-05-24] MEDS: ATORVASTATIN 10 MG TABLET GT SCH (21:00)
[2018-05-24 21:48] VITALS: BP 128/83
[2018-05-25] MEDS: JEVITY 1.2 1000 ML LIQUID GT PRN (00:45)
[2018-05-25] MEDS: IPRATROPIUM BROMIDE 0.5 MG/2.5 ML NEBU NEB SCH ×5 (03:49→20:42)
[2018-05-25] MEDS: ALBUTEROL SULFATE 2.5 MG/3 ML NEBU NEB SCH ×5 (03:49→20:42)
[2018-05-25] MEDS: BACLOFEN 10 MG TABLET GT SCH ×3 (06:25→22:12)
[2018-05-25] MEDS: CHOLECALCIFEROL 1,000 UNIT TABLET GT SCH (06:25)
[2018-05-25] MEDS: BUDESONIDE 0.5 MG/2 ML NEBU NEB SCH ×2 (07:13→20:52)
[2018-05-25] MEDS: CALCIUM CARBONATE 500 MG TABLET GT SCH ×2 (09:35→20:37)
[2018-05-25] MEDS: HYDROGEN PEROXIDE 3% 118 ML BOTTLE TP SCH ×2 (09:35→20:37)
[2018-05-25] MEDS: NUTRISOURCE FIBER 4 GM PACKET GT SCH ×2 (09:35→20:37)
[2018-05-25] MEDS: DOCUSATE SODIUM 100 MG/10 ML LIQUID UDC GT SCH (09:35)
[2018-05-25] MEDS: Z GUARD REMEDY PASTE 57 GM TUBE TOP SCH ×2 (09:35→20:37)
[2018-05-25] MEDS: MULTIVIT, IRON, MIN NO. 8, FA TABLET GT SCH (20:37)
[2018-05-25] MEDS: ATORVASTATIN 10 MG TABLET GT SCH (20:37)
[2018-05-25 22:07] VITALS: BP 130/130
[2018-05-26] MEDS: IPRATROPIUM BROMIDE 0.5 MG/2.5 ML NEBU NEB SCH ×7 (00:11→23:52)
[2018-05-26] MEDS: ALBUTEROL SULFATE 2.5 MG/3 ML NEBU NEB SCH ×7 (00:11→23:52)
[2018-05-26] MEDS: BACLOFEN 10 MG TABLET GT SCH ×3 (05:43→21:44)
[2018-05-26] MEDS: CHOLECALCIFEROL 1,000 UNIT TABLET GT SCH (05:43)
[2018-05-26] MEDS: BUDESONIDE 0.5 MG/2 ML NEBU NEB SCH ×2 (07:41→20:41)
[2018-05-26 08:41] VITALS: BP 122/79
[2018-05-26] MEDS: NUTRISOURCE FIBER 4 GM PACKET GT SCH ×2 (09:00→21:44)
[2018-05-26] MEDS: DOCUSATE SODIUM 100 MG/10 ML LIQUID UDC GT SCH (09:00)
[2018-05-26] MEDS: HYDROGEN PEROXIDE 3% 118 ML BOTTLE TP SCH ×2 (09:00→21:44)
[2018-05-26] MEDS: Z GUARD REMEDY PASTE 57 GM TUBE TOP SCH ×2 (09:00→21:44)
[2018-05-26] MEDS: CALCIUM CARBONATE 500 MG TABLET GT SCH ×2 (09:00→21:44)
[2018-05-26] MEDS: JEVITY 1.2 1000 ML LIQUID GT PRN (13:58)
[2018-05-26] MEDS: ATORVASTATIN 10 MG TABLET GT SCH (21:43)
[2018-05-26 21:48] VITALS: BP 132/84
[2018-05-27] MEDS: ALBUTEROL SULFATE 2.5 MG/3 ML NEBU NEB SCH ×6 (03:50→23:00)
[2018-05-27] MEDS: IPRATROPIUM BROMIDE 0.5 MG/2.5 ML NEBU NEB SCH ×6 (03:50→23:00)
[2018-05-27] MEDS: CHOLECALCIFEROL 1,000 UNIT TABLET GT SCH (05:56)
[2018-05-27] MEDS: BACLOFEN 10 MG TABLET GT SCH ×3 (05:56→21:13)
[2018-05-27] MEDS: BUDESONIDE 0.5 MG/2 ML NEBU NEB SCH ×2 (07:50→19:18)
[2018-05-27] MEDS: NUTRISOURCE FIBER 4 GM PACKET GT SCH ×2 (08:07→21:12)
[2018-05-27] MEDS: DOCUSATE SODIUM 100 MG/10 ML LIQUID UDC GT SCH (08:07)
[2018-05-27] MEDS: Z GUARD REMEDY PASTE 57 GM TUBE TOP SCH ×2 (08:08→21:13)
[2018-05-27] MEDS: CALCIUM CARBONATE 500 MG TABLET GT SCH ×2 (08:08→21:13)
[2018-05-27] MEDS: HYDROGEN PEROXIDE 3% 118 ML BOTTLE TP SCH ×2 (08:08→21:13)
[2018-05-27 11:27] VITALS: BP 130/58
[2018-05-27] MEDS: JEVITY 1.2 1000 ML LIQUID GT PRN (15:40)
[2018-05-27] MEDS: MULTIVIT, IRON, MIN NO. 8, FA TABLET GT SCH (21:13)
[2018-05-27] MEDS: ATORVASTATIN 10 MG TABLET GT SCH (21:14)
[2018-05-27 21:58] VITALS: BP 111/74
[2018-05-28] MEDS: ALBUTEROL SULFATE 2.5 MG/3 ML NEBU NEB SCH ×6 (02:58→22:58)
[2018-05-28] MEDS: IPRATROPIUM BROMIDE 0.5 MG/2.5 ML NEBU NEB SCH ×6 (02:58→22:58)
[2018-05-28] MEDS: BACLOFEN 10 MG TABLET GT SCH ×3 (06:21→21:07)
[2018-05-28] MEDS: CHOLECALCIFEROL 1,000 UNIT TABLET GT SCH (06:21)
[2018-05-28] MEDS: BUDESONIDE 0.5 MG/2 ML NEBU NEB SCH ×2 (07:12→19:26)
[2018-05-28] MEDS: DOCUSATE SODIUM 100 MG/10 ML LIQUID UDC GT SCH (10:00)
[2018-05-28] MEDS: Z GUARD REMEDY PASTE 57 GM TUBE TOP SCH ×2 (10:00→21:07)
[2018-05-28] MEDS: CALCIUM CARBONATE 500 MG TABLET GT SCH ×2 (10:00→21:07)
[2018-05-28] MEDS: HYDROGEN PEROXIDE 3% 118 ML BOTTLE TP SCH ×2 (10:00→21:07)
[2018-05-28] MEDS: NUTRISOURCE FIBER 4 GM PACKET GT SCH ×2 (10:00→21:07)
[2018-05-28 20:00] VITALS: BP 123/70
[2018-05-28] MEDS ORDERED: INFLUENZA VACCINE 2018-2019 0.5 ML DISP.SYRIN IM ONE (21:00)
[2018-05-28] MEDS: ATORVASTATIN 10 MG TABLET GT SCH (21:07)
--- NOTE | 2018-05-28 22:00 | NUR ---
Flu vaccine given tonight, afebrile, no adverse reactions noted, will continue monitor.
[2018-05-29] MEDS: ALBUTEROL SULFATE 2.5 MG/3 ML NEBU NEB SCH ×6 (02:58→23:56)
[2018-05-29] MEDS: IPRATROPIUM BROMIDE 0.5 MG/2.5 ML NEBU NEB SCH ×6 (02:58→23:56)
[2018-05-29] MEDS: BACLOFEN 10 MG TABLET GT SCH ×3 (05:38→21:11)
[2018-05-29] MEDS: CHOLECALCIFEROL 1,000 UNIT TABLET GT SCH (05:38)
[2018-05-29] MEDS: JEVITY 1.2 1000 ML LIQUID GT PRN (06:38)
[2018-05-29] MEDS: BUDESONIDE 0.5 MG/2 ML NEBU NEB SCH ×2 (06:57→20:41)
[2018-05-29] MEDS: HYDROGEN PEROXIDE 3% 118 ML BOTTLE TP SCH ×2 (09:58→20:34)
[2018-05-29] MEDS: Z GUARD REMEDY PASTE 57 GM TUBE TOP SCH ×2 (09:58→20:34)
[2018-05-29] MEDS: CALCIUM CARBONATE 500 MG TABLET GT SCH ×2 (09:58→20:34)
[2018-05-29] MEDS: DOCUSATE SODIUM 100 MG/10 ML LIQUID UDC GT SCH (09:58)
[2018-05-29] MEDS: NUTRISOURCE FIBER 4 GM PACKET GT SCH ×2 (09:58→20:34)
[2018-05-29 11:14] VITALS: BP 124/75
--- NOTE | 2018-05-29 18:17 | NUR ---
pt is afebrile,no adverse reaction noted from flu vaccine,on close observation.
[2018-05-29 20:25] VITALS: BP 135/78
[2018-05-29] MEDS: MULTIVIT, IRON, MIN NO. 8, FA TABLET GT SCH (20:34)
[2018-05-29] MEDS: ATORVASTATIN 10 MG TABLET GT SCH (20:34)
[2018-05-29] MEDS: BISACODYL 10 MG SUPP.RECT RC PRN (21:11)
--- NOTE | 2018-05-29 23:58 | NUR ---
S/p Flu vaccine administration, afebrile, no adverse reactions noted, no signs of any distress.
[2018-05-30] MEDS: IPRATROPIUM BROMIDE 0.5 MG/2.5 ML NEBU NEB SCH ×6 (03:00→23:53)
[2018-05-30] MEDS: ALBUTEROL SULFATE 2.5 MG/3 ML NEBU NEB SCH ×6 (03:00→23:53)
[2018-05-30] MEDS: BACLOFEN 10 MG TABLET GT SCH ×3 (05:23→21:24)
[2018-05-30] MEDS: JEVITY 1.2 1000 ML LIQUID GT PRN (05:23)
[2018-05-30] MEDS: CHOLECALCIFEROL 1,000 UNIT TABLET GT SCH (05:35)
--- NOTE | 2018-05-30 06:41 | NUR ---
Afebrile, trach intact and patent, no respiratory distress noted, gt feeding tolerating well, no coffee ground drainage noted from Gt site, noted with extra large formed bowel movement, changed and kept clean and comfortable.
[2018-05-30] MEDS: BUDESONIDE 0.5 MG/2 ML NEBU NEB SCH ×2 (07:59→20:58)
[2018-05-30 08:00] VITALS: BP 120/87
[2018-05-30] MEDS: NUTRISOURCE FIBER 4 GM PACKET GT SCH ×2 (09:00→21:24)
[2018-05-30] MEDS: CALCIUM CARBONATE 500 MG TABLET GT SCH ×2 (09:00→21:24)
[2018-05-30] MEDS: Z GUARD REMEDY PASTE 57 GM TUBE TOP SCH ×2 (09:00→21:24)
[2018-05-30] MEDS: DOCUSATE SODIUM 100 MG/10 ML LIQUID UDC GT SCH (09:00)
[2018-05-30] MEDS: HYDROGEN PEROXIDE 3% 118 ML BOTTLE TP SCH ×2 (09:00→21:24)
--- NOTE | 2018-05-30 17:15 | NUR ---
STATUS POST FLU VACCINATION, PATIENT IS AFEBRILE WITH NO ACUTE DISTRESS NOTED. MONITORING FOR COFFEE GROUND DISCHARGE AT THE g-TUBE SITE, NO EPISODE OF COFFEE GROUND DISCHARGE NOTED.
[2018-05-30 20:10] VITALS: BP 106/66
[2018-05-30] MEDS: ATORVASTATIN 10 MG TABLET GT SCH (21:24)
--- NOTE | 2018-05-30 22:53 | NUR ---
S/p Flu vaccine administration, afebrile, no adverse reactions noted, no redness or swelling on injection site, no signs of any distress noted, will continue monitor.
[2018-05-31] MEDS: JEVITY 1.2 1000 ML LIQUID GT PRN (03:30)
[2018-05-31] MEDS: IPRATROPIUM BROMIDE 0.5 MG/2.5 ML NEBU NEB SCH ×6 (04:07→22:30)
[2018-05-31] MEDS: ALBUTEROL SULFATE 2.5 MG/3 ML NEBU NEB SCH ×6 (04:08→22:30)
[2018-05-31] MEDS: CHOLECALCIFEROL 1,000 UNIT TABLET GT SCH (05:39)
[2018-05-31] MEDS: BACLOFEN 10 MG TABLET GT SCH ×3 (05:39→21:39)
[2018-05-31 08:05] VITALS: BP 123/76
[2018-05-31] MEDS: BUDESONIDE 0.5 MG/2 ML NEBU NEB SCH ×2 (08:24→19:27)
[2018-05-31] MEDS: DOCUSATE SODIUM 100 MG/10 ML LIQUID UDC GT SCH (09:02)
[2018-05-31] MEDS: HYDROGEN PEROXIDE 3% 118 ML BOTTLE TP SCH ×2 (09:03→20:09)
[2018-05-31] MEDS: NUTRISOURCE FIBER 4 GM PACKET GT SCH ×2 (09:03→20:09)
[2018-05-31] MEDS: Z GUARD REMEDY PASTE 57 GM TUBE TOP SCH ×2 (09:03→20:09)
[2018-05-31] MEDS: CALCIUM CARBONATE 500 MG TABLET GT SCH ×2 (09:03→20:09)
[2018-05-31] MEDS: MULTIVIT, IRON, MIN NO. 8, FA TABLET GT SCH (20:09)
[2018-05-31] MEDS: ATORVASTATIN 10 MG TABLET GT SCH (20:09)
[2018-05-31 20:41] VITALS: BP 96/58
[2018-06-01] MEDS: ALBUTEROL SULFATE 2.5 MG/3 ML NEBU NEB SCH ×6 (02:35→22:58)
[2018-06-01] MEDS: IPRATROPIUM BROMIDE 0.5 MG/2.5 ML NEBU NEB SCH ×6 (02:35→22:58)
[2018-06-01] MEDS: JEVITY 1.2 1000 ML LIQUID GT PRN (03:38)
[2018-06-01] MEDS: BACLOFEN 10 MG TABLET GT SCH ×3 (05:19→21:33)
[2018-06-01] MEDS: CHOLECALCIFEROL 1,000 UNIT TABLET GT SCH (05:49)
[2018-06-01] MEDS: BUDESONIDE 0.5 MG/2 ML NEBU NEB SCH ×2 (06:53→19:26)
[2018-06-01 08:00] VITALS: BP 123/81
[2018-06-01] MEDS: DOCUSATE SODIUM 100 MG/10 ML LIQUID UDC GT SCH (09:00)
[2018-06-01] MEDS: Z GUARD REMEDY PASTE 57 GM TUBE TOP SCH ×2 (09:00→20:34)
[2018-06-01] MEDS: HYDROGEN PEROXIDE 3% 118 ML BOTTLE TP SCH ×2 (09:00→20:34)
[2018-06-01] MEDS: NUTRISOURCE FIBER 4 GM PACKET GT SCH ×2 (09:00→20:34)
[2018-06-01] MEDS: CALCIUM CARBONATE 500 MG TABLET GT SCH ×2 (09:00→20:34)
[2018-06-01] MEDS: ATORVASTATIN 10 MG TABLET GT SCH (20:34)
[2018-06-01 20:39] VITALS: BP 113/72
[2018-06-02] MEDS: IPRATROPIUM BROMIDE 0.5 MG/2.5 ML NEBU NEB SCH ×6 (02:58→23:13)
[2018-06-02] MEDS: ALBUTEROL SULFATE 2.5 MG/3 ML NEBU NEB SCH ×6 (02:58→23:13)
[2018-06-02] MEDS: BACLOFEN 10 MG TABLET GT SCH ×3 (05:40→21:31)
[2018-06-02] MEDS: CHOLECALCIFEROL 1,000 UNIT TABLET GT SCH (05:40)
[2018-06-02] MEDS: JEVITY 1.2 1000 ML LIQUID GT PRN (05:41)
[2018-06-02] MEDS: BUDESONIDE 0.5 MG/2 ML NEBU NEB SCH ×2 (07:34→19:58)
[2018-06-02] MEDS: NUTRISOURCE FIBER 4 GM PACKET GT SCH ×2 (09:09→21:30)
[2018-06-02] MEDS: HYDROGEN PEROXIDE 3% 118 ML BOTTLE TP SCH ×2 (09:09→21:31)
[2018-06-02] MEDS: DOCUSATE SODIUM 100 MG/10 ML LIQUID UDC GT SCH (09:09)
[2018-06-02] MEDS: Z GUARD REMEDY PASTE 57 GM TUBE TOP SCH ×2 (09:09→21:30)
[2018-06-02] MEDS: CALCIUM CARBONATE 500 MG TABLET GT SCH ×2 (09:09→21:30)
[2018-06-02 20:53] VITALS: BP 136/82
[2018-06-02] MEDS: MULTIVIT, IRON, MIN NO. 8, FA TABLET GT SCH (21:30)
[2018-06-02] MEDS: ATORVASTATIN 10 MG TABLET GT SCH (21:30)
[2018-06-03] MEDS: JEVITY 1.2 1000 ML LIQUID GT PRN (02:23)
[2018-06-03] MEDS: ALBUTEROL SULFATE 2.5 MG/3 ML NEBU NEB SCH ×6 (02:53→22:58)
[2018-06-03] MEDS: IPRATROPIUM BROMIDE 0.5 MG/2.5 ML NEBU NEB SCH ×6 (02:53→22:58)
[2018-06-03] MEDS: CHOLECALCIFEROL 1,000 UNIT TABLET GT SCH (06:19)
[2018-06-03] MEDS: BACLOFEN 10 MG TABLET GT SCH ×3 (06:19→22:09)
[2018-06-03] MEDS: BUDESONIDE 0.5 MG/2 ML NEBU NEB SCH ×2 (06:57→19:08)
[2018-06-03 08:00] VITALS: BP 144/93
[2018-06-03] MEDS: Z GUARD REMEDY PASTE 57 GM TUBE TOP SCH ×2 (09:00→21:00)
[2018-06-03] MEDS: DOCUSATE SODIUM 100 MG/10 ML LIQUID UDC GT SCH (09:00)
[2018-06-03] MEDS: HYDROGEN PEROXIDE 3% 118 ML BOTTLE TP SCH ×2 (09:00→21:00)
[2018-06-03] MEDS: NUTRISOURCE FIBER 4 GM PACKET GT SCH ×2 (09:00→21:00)
[2018-06-03] MEDS: CALCIUM CARBONATE 500 MG TABLET GT SCH ×2 (09:00→21:00)
--- NOTE | 2018-06-03 13:43 | NUR ---
Patient scheduled for her annual dental exam on 07/29/[address] Macario ([phone]).
[2018-06-03 20:57] VITALS: BP 110/68
[2018-06-03] MEDS: ATORVASTATIN 10 MG TABLET GT SCH (21:00)
[2018-06-04] MEDS: IPRATROPIUM BROMIDE 0.5 MG/2.5 ML NEBU NEB SCH ×6 (02:58→23:16)
[2018-06-04] MEDS: ALBUTEROL SULFATE 2.5 MG/3 ML NEBU NEB SCH ×6 (02:58→23:16)
[2018-06-04] MEDS: CHOLECALCIFEROL 1,000 UNIT TABLET GT SCH (05:54)
[2018-06-04] MEDS: BACLOFEN 10 MG TABLET GT SCH ×3 (05:54→21:37)
[2018-06-04] MEDS: JEVITY 1.2 1000 ML LIQUID GT PRN (07:13)
[2018-06-04] MEDS: BUDESONIDE 0.5 MG/2 ML NEBU NEB SCH ×2 (08:00→20:37)
[2018-06-04] MEDS: HYDROGEN PEROXIDE 3% 118 ML BOTTLE TP SCH ×2 (09:00→21:36)
[2018-06-04] MEDS: NUTRISOURCE FIBER 4 GM PACKET GT SCH ×2 (09:00→21:36)
[2018-06-04] MEDS: CALCIUM CARBONATE 500 MG TABLET GT SCH ×2 (09:00→21:36)
[2018-06-04] MEDS: DOCUSATE SODIUM 100 MG/10 ML LIQUID UDC GT SCH (09:00)
[2018-06-04] MEDS: Z GUARD REMEDY PASTE 57 GM TUBE TOP SCH ×2 (09:00→21:36)
[2018-06-04 21:03] VITALS: BP 130/80
[2018-06-04] MEDS: ATORVASTATIN 10 MG TABLET GT SCH (21:36)
[2018-06-04] MEDS: MULTIVIT, IRON, MIN NO. 8, FA TABLET GT SCH (21:36)
[2018-06-05] MEDS: IPRATROPIUM BROMIDE 0.5 MG/2.5 ML NEBU NEB SCH ×6 (02:20→22:31)
[2018-06-05] MEDS: ALBUTEROL SULFATE 2.5 MG/3 ML NEBU NEB SCH ×6 (02:20→22:31)
[2018-06-05] MEDS: CHOLECALCIFEROL 1,000 UNIT TABLET GT SCH (05:35)
[2018-06-05] MEDS: JEVITY 1.2 1000 ML LIQUID GT PRN (05:35)
[2018-06-05] MEDS: BACLOFEN 10 MG TABLET GT SCH ×3 (05:35→21:32)
[2018-06-05] MEDS: BUDESONIDE 0.5 MG/2 ML NEBU NEB SCH ×2 (07:30→19:13)
[2018-06-05 08:00] VITALS: BP 115/64
[2018-06-05] MEDS: DOCUSATE SODIUM 100 MG/10 ML LIQUID UDC GT SCH (09:00)
[2018-06-05] MEDS: Z GUARD REMEDY PASTE 57 GM TUBE TOP SCH ×2 (09:00→20:11)
[2018-06-05] MEDS: NUTRISOURCE FIBER 4 GM PACKET GT SCH ×2 (09:00→20:11)
[2018-06-05] MEDS: CALCIUM CARBONATE 500 MG TABLET GT SCH ×2 (09:00→20:11)
[2018-06-05] MEDS: HYDROGEN PEROXIDE 3% 118 ML BOTTLE TP SCH ×2 (10:00→20:11)
[2018-06-05 20:00] VITALS: BP 144/90
[2018-06-05] MEDS: ATORVASTATIN 10 MG TABLET GT SCH (20:10)
[2018-06-06] MEDS: ALBUTEROL SULFATE 2.5 MG/3 ML NEBU NEB SCH ×6 (02:30→22:35)
[2018-06-06] MEDS: IPRATROPIUM BROMIDE 0.5 MG/2.5 ML NEBU NEB SCH ×6 (02:30→22:35)
[2018-06-06] MEDS: CHOLECALCIFEROL 1,000 UNIT TABLET GT SCH (05:31)
[2018-06-06] MEDS: BACLOFEN 10 MG TABLET GT SCH ×3 (05:31→21:20)
[2018-06-06] MEDS: JEVITY 1.2 1000 ML LIQUID GT PRN (05:32)
[2018-06-06] MEDS: BUDESONIDE 0.5 MG/2 ML NEBU NEB SCH ×2 (07:47→19:04)
[2018-06-06 08:00] VITALS: BP 140/82
[2018-06-06] MEDS: DOCUSATE SODIUM 100 MG/10 ML LIQUID UDC GT SCH (08:28)
[2018-06-06] MEDS: NUTRISOURCE FIBER 4 GM PACKET GT SCH ×2 (08:28→21:20)
[2018-06-06] MEDS: CALCIUM CARBONATE 500 MG TABLET GT SCH ×2 (08:28→21:20)
[2018-06-06] MEDS: Z GUARD REMEDY PASTE 57 GM TUBE TOP SCH ×2 (08:29→21:20)
[2018-06-06] MEDS: HYDROGEN PEROXIDE 3% 118 ML BOTTLE TP SCH ×2 (08:29→21:20)
[2018-06-06 20:24] VITALS: BP 108/70
[2018-06-06] MEDS: ATORVASTATIN 10 MG TABLET GT SCH (21:20)
[2018-06-06] MEDS: MULTIVIT, IRON, MIN NO. 8, FA TABLET GT SCH (21:20)
[2018-06-07] MEDS: ALBUTEROL SULFATE 2.5 MG/3 ML NEBU NEB SCH ×6 (02:42→23:14)
[2018-06-07] MEDS: IPRATROPIUM BROMIDE 0.5 MG/2.5 ML NEBU NEB SCH ×6 (02:42→23:14)
[2018-06-07] MEDS: BACLOFEN 10 MG TABLET GT SCH ×3 (06:02→21:39)
[2018-06-07] MEDS: CHOLECALCIFEROL 1,000 UNIT TABLET GT SCH (06:02)
[2018-06-07] MEDS: BUDESONIDE 0.5 MG/2 ML NEBU NEB SCH ×2 (06:58→19:10)
[2018-06-07 08:00] VITALS: BP 117/80
[2018-06-07] MEDS: CALCIUM CARBONATE 500 MG TABLET GT SCH ×2 (08:41→21:39)
[2018-06-07] MEDS: Z GUARD REMEDY PASTE 57 GM TUBE TOP SCH ×2 (08:41→21:39)
[2018-06-07] MEDS: NUTRISOURCE FIBER 4 GM PACKET GT SCH ×2 (08:41→21:38)
[2018-06-07] MEDS: DOCUSATE SODIUM 100 MG/10 ML LIQUID UDC GT SCH (08:41)
[2018-06-07] MEDS: HYDROGEN PEROXIDE 3% 118 ML BOTTLE TP SCH ×2 (08:41→21:39)
[2018-06-07] MEDS: JEVITY 1.2 1000 ML LIQUID GT PRN (16:53)
[2018-06-07 20:40] VITALS: BP 106/60
[2018-06-07] MEDS: ATORVASTATIN 10 MG TABLET GT SCH (21:38)
[2018-06-08] MEDS: ALBUTEROL SULFATE 2.5 MG/3 ML NEBU NEB SCH ×6 (02:31→23:35)
[2018-06-08] MEDS: IPRATROPIUM BROMIDE 0.5 MG/2.5 ML NEBU NEB SCH ×6 (02:31→23:35)
[2018-06-08] MEDS: BACLOFEN 10 MG TABLET GT SCH ×3 (05:52→21:51)
[2018-06-08] MEDS: CHOLECALCIFEROL 1,000 UNIT TABLET GT SCH (05:52)
[2018-06-08 08:00] VITALS: BP 96/58
[2018-06-08] MEDS: BUDESONIDE 0.5 MG/2 ML NEBU NEB SCH ×2 (08:00→20:46)
[2018-06-08] MEDS: NUTRISOURCE FIBER 4 GM PACKET GT SCH ×2 (09:40→21:51)
[2018-06-08] MEDS: Z GUARD REMEDY PASTE 57 GM TUBE TOP SCH ×2 (09:40→21:51)
[2018-06-08] MEDS: CALCIUM CARBONATE 500 MG TABLET GT SCH ×2 (09:40→21:51)
[2018-06-08] MEDS: DOCUSATE SODIUM 100 MG/10 ML LIQUID UDC GT SCH (09:40)
[2018-06-08] MEDS: HYDROGEN PEROXIDE 3% 118 ML BOTTLE TP SCH ×2 (09:41→21:51)
[2018-06-08] MEDS: JEVITY 1.2 1000 ML LIQUID GT PRN (17:21)
[2018-06-08 20:26] VITALS: BP 99/69
[2018-06-08] MEDS: ATORVASTATIN 10 MG TABLET GT SCH (21:51)
[2018-06-08] MEDS: MULTIVIT, IRON, MIN NO. 8, FA TABLET GT SCH (21:51)
[2018-06-09] MEDS: IPRATROPIUM BROMIDE 0.5 MG/2.5 ML NEBU NEB SCH ×5 (03:02→20:29)
[2018-06-09] MEDS: ALBUTEROL SULFATE 2.5 MG/3 ML NEBU NEB SCH ×5 (03:02→20:29)
[2018-06-09] MEDS: CHOLECALCIFEROL 1,000 UNIT TABLET GT SCH (05:55)
[2018-06-09] MEDS: BACLOFEN 10 MG TABLET GT SCH ×3 (05:55→21:49)
[2018-06-09] MEDS: BUDESONIDE 0.5 MG/2 ML NEBU NEB SCH ×2 (06:51→20:44)
[2018-06-09] MEDS: HYDROGEN PEROXIDE 3% 118 ML BOTTLE TP SCH ×2 (09:00→21:49)
[2018-06-09] MEDS: Z GUARD REMEDY PASTE 57 GM TUBE TOP SCH ×2 (09:00→21:48)
[2018-06-09] MEDS: CALCIUM CARBONATE 500 MG TABLET GT SCH ×2 (09:00→21:48)
[2018-06-09] MEDS: DOCUSATE SODIUM 100 MG/10 ML LIQUID UDC GT SCH (09:00)
[2018-06-09] MEDS: NUTRISOURCE FIBER 4 GM PACKET GT SCH ×2 (09:00→21:48)
--- NOTE | 2018-06-09 18:08 | NUR ---
new orders noted for gt site redness,carried out.
[2018-06-09 20:33] VITALS: BP 121/82
[2018-06-09] MEDS: ATORVASTATIN 10 MG TABLET GT SCH (21:48)
[2018-06-09] MEDS: COD LIVER OIL/ZINC OXIDE OINT 113 GM TUBE TP SCH (21:48)
[2018-06-10] MEDS: ALBUTEROL SULFATE 2.5 MG/3 ML NEBU NEB SCH ×7 (00:13→22:53)
[2018-06-10] MEDS: IPRATROPIUM BROMIDE 0.5 MG/2.5 ML NEBU NEB SCH ×7 (00:13→22:53)
[2018-06-10] MEDS: JEVITY 1.2 1000 ML LIQUID GT PRN (04:37)
[2018-06-10] MEDS: CHOLECALCIFEROL 1,000 UNIT TABLET GT SCH (05:38)
[2018-06-10] MEDS: BACLOFEN 10 MG TABLET GT SCH ×3 (05:38→21:21)
[2018-06-10] MEDS: BUDESONIDE 0.5 MG/2 ML NEBU NEB SCH ×2 (07:09→19:55)
[2018-06-10 08:02] VITALS: BP 125/80
[2018-06-10] MEDS: CALCIUM CARBONATE 500 MG TABLET GT SCH ×2 (09:00→21:21)
[2018-06-10] MEDS: HYDROGEN PEROXIDE 3% 118 ML BOTTLE TP SCH ×2 (09:00→21:21)
[2018-06-10] MEDS: Z GUARD REMEDY PASTE 57 GM TUBE TOP SCH ×2 (09:00→21:21)
[2018-06-10] MEDS: NUTRISOURCE FIBER 4 GM PACKET GT SCH ×2 (09:00→21:21)
[2018-06-10] MEDS: DOCUSATE SODIUM 100 MG/10 ML LIQUID UDC GT SCH (09:00)
[2018-06-10] MEDS: COD LIVER OIL/ZINC OXIDE OINT 113 GM TUBE TP SCH ×2 (09:00→21:21)
[2018-06-10 20:25] VITALS: BP 121/79
[2018-06-10] MEDS: MULTIVIT, IRON, MIN NO. 8, FA TABLET GT SCH (21:21)
[2018-06-10] MEDS: ATORVASTATIN 10 MG TABLET GT SCH (21:21)
[2018-06-11] MEDS: ALBUTEROL SULFATE 2.5 MG/3 ML NEBU NEB SCH ×6 (02:58→23:28)
[2018-06-11] MEDS: IPRATROPIUM BROMIDE 0.5 MG/2.5 ML NEBU NEB SCH ×6 (02:58→23:28)
[2018-06-11] MEDS: CHOLECALCIFEROL 1,000 UNIT TABLET GT SCH (05:29)
[2018-06-11] MEDS: BACLOFEN 10 MG TABLET GT SCH ×3 (05:29→21:58)
[2018-06-11] MEDS: BUDESONIDE 0.5 MG/2 ML NEBU NEB SCH ×2 (07:07→18:48)
[2018-06-11 08:00] VITALS: BP 100/53
[2018-06-11] MEDS: Z GUARD REMEDY PASTE 57 GM TUBE TOP SCH ×2 (09:59→21:57)
[2018-06-11] MEDS: CALCIUM CARBONATE 500 MG TABLET GT SCH ×2 (09:59→21:57)
[2018-06-11] MEDS: DOCUSATE SODIUM 100 MG/10 ML LIQUID UDC GT SCH (09:59)
[2018-06-11] MEDS: COD LIVER OIL/ZINC OXIDE OINT 113 GM TUBE TP SCH ×2 (09:59→21:57)
[2018-06-11] MEDS: NUTRISOURCE FIBER 4 GM PACKET GT SCH ×2 (09:59→21:57)
[2018-06-11] MEDS: HYDROGEN PEROXIDE 3% 118 ML BOTTLE TP SCH ×2 (09:59→21:57)
--- NOTE | 2018-06-11 15:55 | NUR ---
INTERDISCIPLINARY PLAN OF CARE CONFERENCE was held today. Patient's family was unable to attend due to living [id number]. Dr. Underwood and the Interdisciplinary Team reviewed the current plan of care in detail. RN reported on patient's medical condition. See RN IDT conference notes. No major changes in condition were reported. See also all other disciplines IDT notes and physician's progress notes for additional details.
--- NOTE | 2018-06-11 16:31 | NUR ---
Pharmacy Update from today's 06/11/18 IDT Meeting: VS: Temp 98.4 BP 110/68 HR 72 LABS: (from 02/06/18, no new labs) Wbc 4.3H/H 13.8/39.6Plt 147 Na 140K 4.4Cl 103CO2 27BUN/SCr 19/0.7 BS 98Ca 9.1 MEDICATION USE REVIEWED: > Pt not on any anti-psych or anti-seizure medications > PRN MED USAGE: (Apr) Tylenol for pain used x 1 Tylenol for temp used x 0 Bisacodyl PRN x 3 NEW ORDERS NOTED: > flu shot 05/28 Pt was reviewed and discussed in depth, no medication concerns or issues reported at this time, no further recs from rx at this time. Will continue to follow
[2018-06-11] MEDS: JEVITY 1.2 1000 ML LIQUID GT PRN (18:37)
[2018-06-11 20:39] VITALS: BP 129/79
[2018-06-11] MEDS: ATORVASTATIN 10 MG TABLET GT SCH (21:56)
[2018-06-12] MEDS: IPRATROPIUM BROMIDE 0.5 MG/2.5 ML NEBU NEB SCH ×6 (03:36→23:45)
[2018-06-12] MEDS: ALBUTEROL SULFATE 2.5 MG/3 ML NEBU NEB SCH ×6 (03:36→23:45)
[2018-06-12] MEDS: BACLOFEN 10 MG TABLET GT SCH ×3 (06:08→21:52)
[2018-06-12] MEDS: CHOLECALCIFEROL 1,000 UNIT TABLET GT SCH (06:09)
[2018-06-12 08:00] VITALS: BP 128/85
[2018-06-12] MEDS: BUDESONIDE 0.5 MG/2 ML NEBU NEB SCH ×2 (08:00→20:40)
[2018-06-12] MEDS: DOCUSATE SODIUM 100 MG/10 ML LIQUID UDC GT SCH (08:23)
[2018-06-12] MEDS: NUTRISOURCE FIBER 4 GM PACKET GT SCH ×2 (08:24→21:51)
[2018-06-12] MEDS: Z GUARD REMEDY PASTE 57 GM TUBE TOP SCH ×2 (08:24→21:52)
[2018-06-12] MEDS: CALCIUM CARBONATE 500 MG TABLET GT SCH ×2 (08:24→21:51)
[2018-06-12] MEDS: COD LIVER OIL/ZINC OXIDE OINT 113 GM TUBE TP SCH ×2 (08:24→21:52)
[2018-06-12] MEDS: HYDROGEN PEROXIDE 3% 118 ML BOTTLE TP SCH ×2 (08:24→21:52)
[2018-06-12 20:14] VITALS: BP 120/87
[2018-06-12] MEDS: MULTIVIT, IRON, MIN NO. 8, FA TABLET GT SCH (21:51)
[2018-06-12] MEDS: ATORVASTATIN 10 MG TABLET GT SCH (21:51)
[2018-06-13] MEDS: IPRATROPIUM BROMIDE 0.5 MG/2.5 ML NEBU NEB SCH ×5 (03:01→20:45)
[2018-06-13] MEDS: ALBUTEROL SULFATE 2.5 MG/3 ML NEBU NEB SCH ×5 (03:01→20:45)
[2018-06-13] MEDS: JEVITY 1.2 1000 ML LIQUID GT PRN (06:19)
[2018-06-13] MEDS: CHOLECALCIFEROL 1,000 UNIT TABLET GT SCH (06:19)
[2018-06-13] MEDS: BACLOFEN 10 MG TABLET GT SCH ×3 (06:19→21:30)
[2018-06-13] MEDS: BUDESONIDE 0.5 MG/2 ML NEBU NEB SCH ×2 (07:16→20:55)
[2018-06-13 08:00] VITALS: BP 130/78
[2018-06-13] MEDS: HYDROGEN PEROXIDE 3% 118 ML BOTTLE TP SCH ×2 (09:42→21:30)
[2018-06-13] MEDS: DOCUSATE SODIUM 100 MG/10 ML LIQUID UDC GT SCH (09:42)
[2018-06-13] MEDS: NUTRISOURCE FIBER 4 GM PACKET GT SCH ×2 (09:42→21:30)
[2018-06-13] MEDS: CALCIUM CARBONATE 500 MG TABLET GT SCH ×2 (09:42→21:30)
[2018-06-13] MEDS: COD LIVER OIL/ZINC OXIDE OINT 113 GM TUBE TP SCH ×2 (09:42→21:30)
[2018-06-13] MEDS: Z GUARD REMEDY PASTE 57 GM TUBE TOP SCH ×2 (09:42→21:30)
--- NOTE | 2018-06-13 15:07 | NUR ---
SEEN BY GARETH JETER.
[2018-06-13 21:00] VITALS: BP 113/76
[2018-06-13] MEDS: ATORVASTATIN 10 MG TABLET GT SCH (21:30)
[2018-06-14] MEDS: IPRATROPIUM BROMIDE 0.5 MG/2.5 ML NEBU NEB SCH ×7 (00:08→22:30)
[2018-06-14] MEDS: ALBUTEROL SULFATE 2.5 MG/3 ML NEBU NEB SCH ×7 (00:08→22:30)
[2018-06-14] MEDS: BACLOFEN 10 MG TABLET GT SCH ×3 (06:19→21:10)
[2018-06-14] MEDS: CHOLECALCIFEROL 1,000 UNIT TABLET GT SCH (06:19)
[2018-06-14 08:00] VITALS: BP 105/71
[2018-06-14] MEDS: BUDESONIDE 0.5 MG/2 ML NEBU NEB SCH ×2 (08:08→19:06)
[2018-06-14] MEDS: Z GUARD REMEDY PASTE 57 GM TUBE TOP SCH ×2 (08:55→20:11)
[2018-06-14] MEDS: HYDROGEN PEROXIDE 3% 118 ML BOTTLE TP SCH ×2 (08:55→20:11)
[2018-06-14] MEDS: CALCIUM CARBONATE 500 MG TABLET GT SCH ×2 (08:55→20:11)
[2018-06-14] MEDS: NUTRISOURCE FIBER 4 GM PACKET GT SCH ×2 (08:55→20:11)
[2018-06-14] MEDS: COD LIVER OIL/ZINC OXIDE OINT 113 GM TUBE TP SCH ×2 (08:55→20:11)
[2018-06-14] MEDS: DOCUSATE SODIUM 100 MG/10 ML LIQUID UDC GT SCH (08:55)
[2018-06-14] MEDS: MULTIVIT, IRON, MIN NO. 8, FA TABLET GT SCH (20:11)
[2018-06-14] MEDS: ATORVASTATIN 10 MG TABLET GT SCH (20:11)
[2018-06-14 21:31] VITALS: BP 123/71
[2018-06-15] MEDS: IPRATROPIUM BROMIDE 0.5 MG/2.5 ML NEBU NEB SCH ×6 (02:30→22:58)
[2018-06-15] MEDS: ALBUTEROL SULFATE 2.5 MG/3 ML NEBU NEB SCH ×6 (02:30→22:58)
[2018-06-15] MEDS: BACLOFEN 10 MG TABLET GT SCH ×3 (05:10→22:03)
[2018-06-15] MEDS: CHOLECALCIFEROL 1,000 UNIT TABLET GT SCH (05:31)
[2018-06-15 08:05] VITALS: BP 126/70
[2018-06-15] MEDS: BUDESONIDE 0.5 MG/2 ML NEBU NEB SCH ×2 (08:07→19:18)
[2018-06-15] MEDS: CALCIUM CARBONATE 500 MG TABLET GT SCH ×2 (09:38→20:13)
[2018-06-15] MEDS: DOCUSATE SODIUM 100 MG/10 ML LIQUID UDC GT SCH (09:38)
[2018-06-15] MEDS: NUTRISOURCE FIBER 4 GM PACKET GT SCH ×2 (09:38→20:13)
[2018-06-15] MEDS: Z GUARD REMEDY PASTE 57 GM TUBE TOP SCH ×2 (09:39→20:13)
[2018-06-15] MEDS: COD LIVER OIL/ZINC OXIDE OINT 113 GM TUBE TP SCH ×2 (09:39→20:13)
[2018-06-15] MEDS: HYDROGEN PEROXIDE 3% 118 ML BOTTLE TP SCH ×2 (09:39→20:13)
[2018-06-15] MEDS: ATORVASTATIN 10 MG TABLET GT SCH (20:13)
[2018-06-15 22:05] VITALS: BP 114/68
[2018-06-16] MEDS: JEVITY 1.2 1000 ML LIQUID GT PRN ×2 (01:23→05:35)
[2018-06-16] MEDS: IPRATROPIUM BROMIDE 0.5 MG/2.5 ML NEBU NEB SCH ×6 (02:58→22:58)
[2018-06-16] MEDS: ALBUTEROL SULFATE 2.5 MG/3 ML NEBU NEB SCH ×6 (02:58→22:58)
[2018-06-16] MEDS: CHOLECALCIFEROL 1,000 UNIT TABLET GT SCH (05:34)
[2018-06-16] MEDS: BACLOFEN 10 MG TABLET GT SCH ×3 (05:34→21:42)
[2018-06-16] MEDS: BUDESONIDE 0.5 MG/2 ML NEBU NEB SCH ×2 (07:18→19:38)
[2018-06-16 08:05] VITALS: BP 116/66
[2018-06-16] MEDS: HYDROGEN PEROXIDE 3% 118 ML BOTTLE TP SCH ×2 (08:46→21:42)
[2018-06-16] MEDS: COD LIVER OIL/ZINC OXIDE OINT 113 GM TUBE TP SCH ×2 (08:46→21:42)
[2018-06-16] MEDS: CALCIUM CARBONATE 500 MG TABLET GT SCH ×2 (08:46→21:42)
[2018-06-16] MEDS: Z GUARD REMEDY PASTE 57 GM TUBE TOP SCH ×2 (08:46→21:42)
[2018-06-16] MEDS: DOCUSATE SODIUM 100 MG/10 ML LIQUID UDC GT SCH (08:46)
[2018-06-16] MEDS: NUTRISOURCE FIBER 4 GM PACKET GT SCH ×2 (08:46→21:42)
--- NOTE | 2018-06-16 14:24 | NUR ---
SEEN BY FRANICA FULLER
[2018-06-16] MEDS: MULTIVIT, IRON, MIN NO. 8, FA TABLET GT SCH (21:42)
[2018-06-16] MEDS: ATORVASTATIN 10 MG TABLET GT SCH (21:42)
[2018-06-16 22:21] VITALS: BP 122/88
[2018-06-17] MEDS: IPRATROPIUM BROMIDE 0.5 MG/2.5 ML NEBU NEB SCH ×6 (02:58→22:44)
[2018-06-17] MEDS: ALBUTEROL SULFATE 2.5 MG/3 ML NEBU NEB SCH ×6 (02:58→22:44)
[2018-06-17] MEDS: JEVITY 1.2 1000 ML LIQUID GT PRN (03:24)
[2018-06-17] MEDS: CHOLECALCIFEROL 1,000 UNIT TABLET GT SCH (05:50)
[2018-06-17] MEDS: BACLOFEN 10 MG TABLET GT SCH ×3 (05:50→21:52)
[2018-06-17] MEDS: BUDESONIDE 0.5 MG/2 ML NEBU NEB SCH ×2 (07:23→18:56)
[2018-06-17 08:02] VITALS: BP 105/53
[2018-06-17] MEDS: CALCIUM CARBONATE 500 MG TABLET GT SCH ×2 (09:58→21:52)
[2018-06-17] MEDS: NUTRISOURCE FIBER 4 GM PACKET GT SCH ×2 (09:58→21:52)
[2018-06-17] MEDS: DOCUSATE SODIUM 100 MG/10 ML LIQUID UDC GT SCH (09:58)
[2018-06-17] MEDS: Z GUARD REMEDY PASTE 57 GM TUBE TOP SCH ×2 (09:58→21:52)
[2018-06-17] MEDS: HYDROGEN PEROXIDE 3% 118 ML BOTTLE TP SCH ×2 (09:58→21:52)
[2018-06-17] MEDS: COD LIVER OIL/ZINC OXIDE OINT 113 GM TUBE TP SCH ×2 (09:58→21:52)
--- NOTE | 2018-06-17 14:34 | NUR ---
SEEN BY HALINA Mart AND GARETH MartAND NNO.
[2018-06-17 20:00] VITALS: BP 121/80
[2018-06-17] MEDS: ATORVASTATIN 10 MG TABLET GT SCH (21:52)
[2018-06-18] MEDS: JEVITY 1.2 1000 ML LIQUID GT PRN ×2 (02:50→21:30)
[2018-06-18] MEDS: ALBUTEROL SULFATE 2.5 MG/3 ML NEBU NEB SCH ×5 (02:57→20:42)
[2018-06-18] MEDS: IPRATROPIUM BROMIDE 0.5 MG/2.5 ML NEBU NEB SCH ×5 (02:57→20:42)
[2018-06-18] MEDS: BACLOFEN 10 MG TABLET GT SCH ×3 (05:46→21:26)
[2018-06-18] MEDS: CHOLECALCIFEROL 1,000 UNIT TABLET GT SCH (05:46)
[2018-06-18] MEDS: BUDESONIDE 0.5 MG/2 ML NEBU NEB SCH ×2 (07:04→20:56)
[2018-06-18 08:00] VITALS: BP 121/75
[2018-06-18] MEDS: Z GUARD REMEDY PASTE 57 GM TUBE TOP SCH ×2 (09:00→21:26)
[2018-06-18] MEDS: NUTRISOURCE FIBER 4 GM PACKET GT SCH ×2 (09:00→21:26)
[2018-06-18] MEDS: CALCIUM CARBONATE 500 MG TABLET GT SCH ×2 (09:00→21:26)
[2018-06-18] MEDS: DOCUSATE SODIUM 100 MG/10 ML LIQUID UDC GT SCH (09:00)
[2018-06-18] MEDS: COD LIVER OIL/ZINC OXIDE OINT 113 GM TUBE TP SCH ×2 (09:00→21:26)
[2018-06-18] MEDS: HYDROGEN PEROXIDE 3% 118 ML BOTTLE TP SCH ×2 (09:00→21:26)
[2018-06-18 20:00] VITALS: BP 118/71
[2018-06-18] MEDS: MULTIVIT, IRON, MIN NO. 8, FA TABLET GT SCH (21:26)
[2018-06-18] MEDS: ATORVASTATIN 10 MG TABLET GT SCH (21:26)
[2018-06-19] MEDS: IPRATROPIUM BROMIDE 0.5 MG/2.5 ML NEBU NEB SCH ×7 (03:31→22:30)
[2018-06-19] MEDS: ALBUTEROL SULFATE 2.5 MG/3 ML NEBU NEB SCH ×7 (03:31→22:30)
[2018-06-19] MEDS: BACLOFEN 10 MG TABLET GT SCH ×3 (05:48→21:48)
[2018-06-19] MEDS: CHOLECALCIFEROL 1,000 UNIT TABLET GT SCH (05:48)
[2018-06-19] MEDS: BUDESONIDE 0.5 MG/2 ML NEBU NEB SCH ×2 (06:55→18:46)
[2018-06-19 08:00] VITALS: BP 119/60
[2018-06-19] MEDS: NUTRISOURCE FIBER 4 GM PACKET GT SCH ×2 (08:53→20:42)
[2018-06-19] MEDS: Z GUARD REMEDY PASTE 57 GM TUBE TOP SCH ×2 (08:53→20:42)
[2018-06-19] MEDS: CALCIUM CARBONATE 500 MG TABLET GT SCH ×2 (08:53→20:42)
[2018-06-19] MEDS: DOCUSATE SODIUM 100 MG/10 ML LIQUID UDC GT SCH (08:53)
[2018-06-19] MEDS: COD LIVER OIL/ZINC OXIDE OINT 113 GM TUBE TP SCH ×2 (08:53→20:42)
[2018-06-19] MEDS: HYDROGEN PEROXIDE 3% 118 ML BOTTLE TP SCH ×2 (08:54→20:42)
[2018-06-19] MEDS ORDERED: ACETAMINOPHEN 650 MG/20 ML UDC- SA PATIENTS-FEVER ONLY GT PRN (14:30)
[2018-06-19 20:00] VITALS: BP 100/64
[2018-06-19] MEDS: ATORVASTATIN 10 MG TABLET GT SCH (20:42)
[2018-06-20] MEDS: IPRATROPIUM BROMIDE 0.5 MG/2.5 ML NEBU NEB SCH ×6 (03:53→22:40)
[2018-06-20] MEDS: ALBUTEROL SULFATE 2.5 MG/3 ML NEBU NEB SCH ×6 (03:54→22:40)
[2018-06-20] MEDS: CHOLECALCIFEROL 1,000 UNIT TABLET GT SCH (05:49)
[2018-06-20] MEDS: BACLOFEN 10 MG TABLET GT SCH ×3 (05:49→22:05)
[2018-06-20] MEDS: BUDESONIDE 0.5 MG/2 ML NEBU NEB SCH ×2 (07:44→18:41)
[2018-06-20 08:00] VITALS: BP 129/87
[2018-06-20] MEDS: DOCUSATE SODIUM 100 MG/10 ML LIQUID UDC GT SCH (08:10)
[2018-06-20] MEDS: NUTRISOURCE FIBER 4 GM PACKET GT SCH ×2 (08:10→21:00)
[2018-06-20] MEDS: HYDROGEN PEROXIDE 3% 118 ML BOTTLE TP SCH ×2 (08:10→21:00)
[2018-06-20] MEDS: Z GUARD REMEDY PASTE 57 GM TUBE TOP SCH ×2 (08:10→21:00)
[2018-06-20] MEDS: COD LIVER OIL/ZINC OXIDE OINT 113 GM TUBE TP SCH ×2 (08:10→21:00)
[2018-06-20] MEDS: CALCIUM CARBONATE 500 MG TABLET GT SCH ×2 (08:10→21:00)
[2018-06-20] MEDS: JEVITY 1.2 1000 ML LIQUID GT PRN (11:13)
[2018-06-20] MEDS: BISACODYL 10 MG SUPP.RECT RC PRN (12:37)
[2018-06-20 20:00] VITALS: BP 107/65
[2018-06-20] MEDS: ATORVASTATIN 10 MG TABLET GT SCH (21:00)
[2018-06-20] MEDS: MULTIVIT, IRON, MIN NO. 8, FA TABLET GT SCH (21:00)
[2018-06-21] MEDS: IPRATROPIUM BROMIDE 0.5 MG/2.5 ML NEBU NEB SCH ×6 (02:55→23:43)
[2018-06-21] MEDS: ALBUTEROL SULFATE 2.5 MG/3 ML NEBU NEB SCH ×6 (02:55→23:43)
[2018-06-21] MEDS: BACLOFEN 10 MG TABLET GT SCH ×3 (06:00→22:07)
[2018-06-21] MEDS: CHOLECALCIFEROL 1,000 UNIT TABLET GT SCH (06:00)
[2018-06-21] MEDS: BUDESONIDE 0.5 MG/2 ML NEBU NEB SCH ×2 (07:01→20:48)
[2018-06-21 08:00] VITALS: BP 132/60
[2018-06-21] MEDS: DOCUSATE SODIUM 100 MG/10 ML LIQUID UDC GT SCH (08:03)
[2018-06-21] MEDS: CALCIUM CARBONATE 500 MG TABLET GT SCH ×2 (08:03→21:00)
[2018-06-21] MEDS: HYDROGEN PEROXIDE 3% 118 ML BOTTLE TP SCH ×2 (08:03→21:00)
[2018-06-21] MEDS: COD LIVER OIL/ZINC OXIDE OINT 113 GM TUBE TP SCH ×2 (08:03→21:00)
[2018-06-21] MEDS: Z GUARD REMEDY PASTE 57 GM TUBE TOP SCH ×2 (08:03→21:00)
[2018-06-21] MEDS: NUTRISOURCE FIBER 4 GM PACKET GT SCH ×2 (08:03→21:00)
[2018-06-21 20:31] VITALS: BP 112/67
[2018-06-21] MEDS: ATORVASTATIN 10 MG TABLET GT SCH (21:00)
[2018-06-21] MEDS: JEVITY 1.2 1000 ML LIQUID GT PRN (22:38)
[2018-06-22] MEDS: IPRATROPIUM BROMIDE 0.5 MG/2.5 ML NEBU NEB SCH ×6 (03:10→23:19)
[2018-06-22] MEDS: ALBUTEROL SULFATE 2.5 MG/3 ML NEBU NEB SCH ×6 (03:10→23:19)
[2018-06-22] MEDS: BACLOFEN 10 MG TABLET GT SCH ×3 (06:11→21:46)
[2018-06-22] MEDS: CHOLECALCIFEROL 1,000 UNIT TABLET GT SCH (06:11)
[2018-06-22] MEDS: BUDESONIDE 0.5 MG/2 ML NEBU NEB SCH ×2 (06:55→20:43)
[2018-06-22 08:00] VITALS: BP 101/60
[2018-06-22] MEDS: COD LIVER OIL/ZINC OXIDE OINT 113 GM TUBE TP SCH ×2 (08:24→21:46)
[2018-06-22] MEDS: Z GUARD REMEDY PASTE 57 GM TUBE TOP SCH ×2 (08:24→21:46)
[2018-06-22] MEDS: CALCIUM CARBONATE 500 MG TABLET GT SCH ×2 (08:24→21:45)
[2018-06-22] MEDS: HYDROGEN PEROXIDE 3% 118 ML BOTTLE TP SCH ×2 (08:24→21:46)
[2018-06-22] MEDS: DOCUSATE SODIUM 100 MG/10 ML LIQUID UDC GT SCH (08:24)
[2018-06-22] MEDS: NUTRISOURCE FIBER 4 GM PACKET GT SCH ×2 (08:24→21:45)
[2018-06-22 20:15] VITALS: BP 114/59
[2018-06-22] MEDS: ATORVASTATIN 10 MG TABLET GT SCH (21:45)
[2018-06-22] MEDS: MULTIVIT, IRON, MIN NO. 8, FA TABLET GT SCH (21:46)
[2018-06-23] MEDS: ALBUTEROL SULFATE 2.5 MG/3 ML NEBU NEB SCH ×6 (03:23→22:35)
[2018-06-23] MEDS: IPRATROPIUM BROMIDE 0.5 MG/2.5 ML NEBU NEB SCH ×6 (03:23→22:35)
[2018-06-23] MEDS: BACLOFEN 10 MG TABLET GT SCH ×3 (06:03→22:00)
[2018-06-23] MEDS: CHOLECALCIFEROL 1,000 UNIT TABLET GT SCH (06:04)
[2018-06-23] MEDS: BISACODYL 10 MG SUPP.RECT RC PRN (06:17)
[2018-06-23 08:09] VITALS: BP 118/64
[2018-06-23] MEDS: BUDESONIDE 0.5 MG/2 ML NEBU NEB SCH ×2 (08:09→19:11)
[2018-06-23] MEDS: CALCIUM CARBONATE 500 MG TABLET GT SCH ×2 (08:11→21:00)
[2018-06-23] MEDS: NUTRISOURCE FIBER 4 GM PACKET GT SCH ×2 (08:11→21:00)
[2018-06-23] MEDS: DOCUSATE SODIUM 100 MG/10 ML LIQUID UDC GT SCH (08:11)
[2018-06-23] MEDS: Z GUARD REMEDY PASTE 57 GM TUBE TOP SCH ×2 (08:12→21:00)
[2018-06-23] MEDS: COD LIVER OIL/ZINC OXIDE OINT 113 GM TUBE TP SCH (08:12)
[2018-06-23] MEDS: HYDROGEN PEROXIDE 3% 118 ML BOTTLE TP SCH ×2 (08:12→21:00)
[2018-06-23] MEDS: JEVITY 1.2 1000 ML LIQUID GT PRN (11:56)
[2018-06-23] MEDS: ATORVASTATIN 10 MG TABLET GT SCH (21:00)
[2018-06-23 21:27] VITALS: BP 99/52
[2018-06-24] MEDS: IPRATROPIUM BROMIDE 0.5 MG/2.5 ML NEBU NEB SCH ×6 (02:36→22:34)
[2018-06-24] MEDS: ALBUTEROL SULFATE 2.5 MG/3 ML NEBU NEB SCH ×6 (02:36→22:34)
[2018-06-24] MEDS: BACLOFEN 10 MG TABLET GT SCH ×3 (05:59→21:55)
[2018-06-24] MEDS: CHOLECALCIFEROL 1,000 UNIT TABLET GT SCH (05:59)
[2018-06-24] MEDS: BUDESONIDE 0.5 MG/2 ML NEBU NEB SCH ×2 (07:16→19:59)
[2018-06-24 08:00] VITALS: BP 102/54
[2018-06-24] MEDS: NUTRISOURCE FIBER 4 GM PACKET GT SCH ×2 (08:24→21:55)
[2018-06-24] MEDS: DOCUSATE SODIUM 100 MG/10 ML LIQUID UDC GT SCH (08:24)
[2018-06-24] MEDS: CALCIUM CARBONATE 500 MG TABLET GT SCH ×2 (08:24→21:55)
[2018-06-24] MEDS: HYDROGEN PEROXIDE 3% 118 ML BOTTLE TP SCH ×2 (08:25→21:55)
[2018-06-24] MEDS: Z GUARD REMEDY PASTE 57 GM TUBE TOP SCH ×2 (08:25→21:55)
[2018-06-24] MEDS: JEVITY 1.2 1000 ML LIQUID GT PRN (11:20)
[2018-06-24 20:37] VITALS: BP 98/57
[2018-06-24] MEDS: MULTIVIT, IRON, MIN NO. 8, FA TABLET GT SCH (21:55)
[2018-06-24] MEDS: ATORVASTATIN 10 MG TABLET GT SCH (21:55)
[2018-06-25] MEDS: ALBUTEROL SULFATE 2.5 MG/3 ML NEBU NEB SCH ×6 (02:32→22:35)
[2018-06-25] MEDS: IPRATROPIUM BROMIDE 0.5 MG/2.5 ML NEBU NEB SCH ×6 (02:32→22:35)
[2018-06-25] MEDS: BACLOFEN 10 MG TABLET GT SCH ×3 (06:44→21:17)
[2018-06-25] MEDS: CHOLECALCIFEROL 1,000 UNIT TABLET GT SCH (06:44)
[2018-06-25] MEDS: BUDESONIDE 0.5 MG/2 ML NEBU NEB SCH ×2 (07:26→18:45)
[2018-06-25 08:00] VITALS: BP 110/73
[2018-06-25] MEDS: DOCUSATE SODIUM 100 MG/10 ML LIQUID UDC GT SCH (09:43)
[2018-06-25] MEDS: NUTRISOURCE FIBER 4 GM PACKET GT SCH ×2 (09:44→21:16)
[2018-06-25] MEDS: CALCIUM CARBONATE 500 MG TABLET GT SCH ×2 (09:46→21:17)
[2018-06-25] MEDS: HYDROGEN PEROXIDE 3% 118 ML BOTTLE TP SCH ×2 (09:47→21:17)
[2018-06-25] MEDS: Z GUARD REMEDY PASTE 57 GM TUBE TOP SCH ×2 (09:47→21:17)
[2018-06-25 20:07] VITALS: BP 113/63
[2018-06-25] MEDS: ATORVASTATIN 10 MG TABLET GT SCH (21:16)
[2018-06-26] MEDS: ALBUTEROL SULFATE 2.5 MG/3 ML NEBU NEB SCH ×6 (02:30→23:44)
[2018-06-26] MEDS: IPRATROPIUM BROMIDE 0.5 MG/2.5 ML NEBU NEB SCH ×6 (02:30→23:44)
[2018-06-26] MEDS: CHOLECALCIFEROL 1,000 UNIT TABLET GT SCH (06:30)
[2018-06-26] MEDS: BACLOFEN 10 MG TABLET GT SCH ×3 (06:30→21:46)
[2018-06-26] MEDS: JEVITY 1.2 1000 ML LIQUID GT PRN (06:40)
[2018-06-26] MEDS: BUDESONIDE 0.5 MG/2 ML NEBU NEB SCH ×2 (07:09→20:20)
[2018-06-26 08:00] VITALS: BP 124/66
[2018-06-26] MEDS: DOCUSATE SODIUM 100 MG/10 ML LIQUID UDC GT SCH (08:04)
[2018-06-26] MEDS: CALCIUM CARBONATE 500 MG TABLET GT SCH ×2 (08:05→21:43)
[2018-06-26] MEDS: HYDROGEN PEROXIDE 3% 118 ML BOTTLE TP SCH ×2 (08:05→21:46)
[2018-06-26] MEDS: NUTRISOURCE FIBER 4 GM PACKET GT SCH ×2 (08:05→21:43)
[2018-06-26] MEDS: Z GUARD REMEDY PASTE 57 GM TUBE TOP SCH ×2 (08:05→21:46)
[2018-06-26 20:24] VITALS: BP 111/76
[2018-06-26] MEDS: ATORVASTATIN 10 MG TABLET GT SCH (21:43)
[2018-06-26] MEDS: MULTIVIT, IRON, MIN NO. 8, FA TABLET GT SCH (21:45)
[2018-06-27] MEDS: IPRATROPIUM BROMIDE 0.5 MG/2.5 ML NEBU NEB SCH ×6 (03:01→23:25)
[2018-06-27] MEDS: ALBUTEROL SULFATE 2.5 MG/3 ML NEBU NEB SCH ×6 (03:02→23:25)
[2018-06-27] MEDS: JEVITY 1.2 1000 ML LIQUID GT PRN (06:00)
[2018-06-27] MEDS: BACLOFEN 10 MG TABLET GT SCH ×3 (06:14→21:16)
[2018-06-27] MEDS: CHOLECALCIFEROL 1,000 UNIT TABLET GT SCH (06:14)
[2018-06-27] MEDS: BUDESONIDE 0.5 MG/2 ML NEBU NEB SCH ×2 (07:43→20:49)
[2018-06-27 08:00] VITALS: BP 113/73
[2018-06-27] MEDS: NUTRISOURCE FIBER 4 GM PACKET GT SCH ×2 (08:55→21:15)
[2018-06-27] MEDS: CALCIUM CARBONATE 500 MG TABLET GT SCH ×2 (08:55→21:16)
[2018-06-27] MEDS: DOCUSATE SODIUM 100 MG/10 ML LIQUID UDC GT SCH (08:55)
[2018-06-27] MEDS: Z GUARD REMEDY PASTE 57 GM TUBE TOP SCH ×2 (08:55→21:16)
[2018-06-27] MEDS: HYDROGEN PEROXIDE 3% 118 ML BOTTLE TP SCH ×2 (08:56→21:16)
--- NOTE | 2018-06-27 19:09 | NUR ---
SEEN BY DR. ALBERTO JETER.
[2018-06-27 20:00] VITALS: BP 121/69
[2018-06-27] MEDS: ATORVASTATIN 10 MG TABLET GT SCH (21:15)
[2018-06-28] MEDS: IPRATROPIUM BROMIDE 0.5 MG/2.5 ML NEBU NEB SCH ×6 (02:47→23:23)
[2018-06-28] MEDS: ALBUTEROL SULFATE 2.5 MG/3 ML NEBU NEB SCH ×6 (02:47→23:23)
[2018-06-28] MEDS: BACLOFEN 10 MG TABLET GT SCH ×3 (05:49→21:17)
[2018-06-28] MEDS: JEVITY 1.2 1000 ML LIQUID GT PRN (05:50)
[2018-06-28] MEDS: CHOLECALCIFEROL 1,000 UNIT TABLET GT SCH (05:50)
[2018-06-28] MEDS: BUDESONIDE 0.5 MG/2 ML NEBU NEB SCH ×2 (06:51→18:50)
[2018-06-28 08:00] VITALS: BP 118/72
[2018-06-28] MEDS: Z GUARD REMEDY PASTE 57 GM TUBE TOP SCH ×2 (09:51→21:17)
[2018-06-28] MEDS: NUTRISOURCE FIBER 4 GM PACKET GT SCH ×2 (09:51→21:17)
[2018-06-28] MEDS: CALCIUM CARBONATE 500 MG TABLET GT SCH ×2 (09:51→21:17)
[2018-06-28] MEDS: HYDROGEN PEROXIDE 3% 118 ML BOTTLE TP SCH ×2 (09:51→21:17)
[2018-06-28] MEDS: DOCUSATE SODIUM 100 MG/10 ML LIQUID UDC GT SCH (09:51)
[2018-06-28] MEDS: MULTIVIT, IRON, MIN NO. 8, FA TABLET GT SCH (21:17)
[2018-06-28] MEDS: ATORVASTATIN 10 MG TABLET GT SCH (21:17)
[2018-06-29] MEDS: IPRATROPIUM BROMIDE 0.5 MG/2.5 ML NEBU NEB SCH ×6 (03:40→22:58)
[2018-06-29] MEDS: ALBUTEROL SULFATE 2.5 MG/3 ML NEBU NEB SCH ×6 (03:40→22:58)
[2018-06-29] MEDS: BACLOFEN 10 MG TABLET GT SCH ×3 (05:08→21:43)
[2018-06-29] MEDS: CHOLECALCIFEROL 1,000 UNIT TABLET GT SCH (06:34)
[2018-06-29] MEDS: BUDESONIDE 0.5 MG/2 ML NEBU NEB SCH ×2 (06:52→19:18)
[2018-06-29] MEDS: JEVITY 1.2 1000 ML LIQUID GT PRN (06:58)
[2018-06-29 08:00] VITALS: BP 99/49
[2018-06-29] MEDS: DOCUSATE SODIUM 100 MG/10 ML LIQUID UDC GT SCH (09:55)
[2018-06-29] MEDS: CALCIUM CARBONATE 500 MG TABLET GT SCH ×2 (09:55→21:43)
[2018-06-29] MEDS: Z GUARD REMEDY PASTE 57 GM TUBE TOP SCH ×2 (09:55→21:43)
[2018-06-29] MEDS: HYDROGEN PEROXIDE 3% 118 ML BOTTLE TP SCH ×2 (09:55→21:43)
[2018-06-29] MEDS: NUTRISOURCE FIBER 4 GM PACKET GT SCH ×2 (09:55→21:43)
[2018-06-29 19:30] VITALS: BP 118/71
[2018-06-29] MEDS: ATORVASTATIN 10 MG TABLET GT SCH (21:43)
[2018-06-30] MEDS: IPRATROPIUM BROMIDE 0.5 MG/2.5 ML NEBU NEB SCH ×6 (02:58→23:00)
[2018-06-30] MEDS: ALBUTEROL SULFATE 2.5 MG/3 ML NEBU NEB SCH ×6 (02:58→23:00)
[2018-06-30] MEDS: CHOLECALCIFEROL 1,000 UNIT TABLET GT SCH (05:39)
[2018-06-30] MEDS: BACLOFEN 10 MG TABLET GT SCH ×3 (05:39→21:06)
[2018-06-30] MEDS: BUDESONIDE 0.5 MG/2 ML NEBU NEB SCH ×3 (07:04→19:58)
[2018-06-30 08:00] VITALS: BP 110/69
[2018-06-30] MEDS: NUTRISOURCE FIBER 4 GM PACKET GT SCH ×2 (09:00→20:45)
[2018-06-30] MEDS: Z GUARD REMEDY PASTE 57 GM TUBE TOP SCH ×2 (09:00→20:45)
[2018-06-30] MEDS: CALCIUM CARBONATE 500 MG TABLET GT SCH ×2 (09:00→20:45)
[2018-06-30] MEDS: HYDROGEN PEROXIDE 3% 118 ML BOTTLE TP SCH ×2 (09:00→20:45)
[2018-06-30] MEDS: DOCUSATE SODIUM 100 MG/10 ML LIQUID UDC GT SCH (09:00)
[2018-06-30 19:48] VITALS: BP 109/61
[2018-06-30] MEDS: ATORVASTATIN 10 MG TABLET GT SCH (20:45)
[2018-06-30] MEDS: MULTIVIT, IRON, MIN NO. 8, FA TABLET GT SCH (20:45)
[2018-07-01] MEDS: IPRATROPIUM BROMIDE 0.5 MG/2.5 ML NEBU NEB SCH ×7 (02:58→22:37)
[2018-07-01] MEDS: ALBUTEROL SULFATE 2.5 MG/3 ML NEBU NEB SCH ×7 (02:58→22:37)
[2018-07-01] MEDS: BACLOFEN 10 MG TABLET GT SCH ×3 (05:15→21:15)
[2018-07-01] MEDS: CHOLECALCIFEROL 1,000 UNIT TABLET GT SCH (05:33)
[2018-07-01] MEDS: BUDESONIDE 0.5 MG/2 ML NEBU NEB SCH ×3 (07:10→19:49)
[2018-07-01 08:00] VITALS: BP 121/74
[2018-07-01] MEDS: NUTRISOURCE FIBER 4 GM PACKET GT SCH ×2 (09:00→21:15)
[2018-07-01] MEDS: CALCIUM CARBONATE 500 MG TABLET GT SCH ×2 (09:00→21:15)
[2018-07-01] MEDS: Z GUARD REMEDY PASTE 57 GM TUBE TOP SCH ×2 (09:00→21:15)
[2018-07-01] MEDS: DOCUSATE SODIUM 100 MG/10 ML LIQUID UDC GT SCH (09:00)
[2018-07-01] MEDS: HYDROGEN PEROXIDE 3% 118 ML BOTTLE TP SCH ×2 (09:00→21:15)
--- NOTE | 2018-07-01 15:08 | NUR ---
SEEN BY GARETH JETER.
[2018-07-01 20:28] VITALS: BP 124/83
[2018-07-01] MEDS: ATORVASTATIN 10 MG TABLET GT SCH (21:15)
[2018-07-02] MEDS: IPRATROPIUM BROMIDE 0.5 MG/2.5 ML NEBU NEB SCH ×6 (03:29→23:16)
[2018-07-02] MEDS: ALBUTEROL SULFATE 2.5 MG/3 ML NEBU NEB SCH ×6 (03:29→23:16)
[2018-07-02] MEDS: CHOLECALCIFEROL 1,000 UNIT TABLET GT SCH (06:29)
[2018-07-02] MEDS: BACLOFEN 10 MG TABLET GT SCH ×3 (06:29→21:23)
[2018-07-02] MEDS: BISACODYL 10 MG SUPP.RECT RC PRN (06:29)
[2018-07-02] MEDS: BUDESONIDE 0.5 MG/2 ML NEBU NEB SCH ×2 (07:29→20:19)
[2018-07-02 08:00] VITALS: BP 137/87
[2018-07-02] MEDS: Z GUARD REMEDY PASTE 57 GM TUBE TOP SCH ×2 (09:00→21:23)
[2018-07-02] MEDS: NUTRISOURCE FIBER 4 GM PACKET GT SCH ×2 (09:00→21:23)
[2018-07-02] MEDS: HYDROGEN PEROXIDE 3% 118 ML BOTTLE TP SCH ×2 (09:00→21:23)
[2018-07-02] MEDS: DOCUSATE SODIUM 100 MG/10 ML LIQUID UDC GT SCH (09:00)
[2018-07-02] MEDS: CALCIUM CARBONATE 500 MG TABLET GT SCH ×2 (09:00→21:23)
--- NOTE | 2018-07-02 13:44 | NUR ---
Pharmacy Update from today's 07/01/18 IDT Meeting: VS: Temp 97.2 BP 124/83 HR 75 LABS: (from 05/08/18) Wbc 4.6H/H 14.1/40.8Plt 169 (from 02/06/18) Na 140K 4.4Cl 103CO2 27BUN/SCr 19/0.7 BS 98Ca 9.1 MEDICATION USE REVIEWED: > Pt not on any anti-psych or anti-seizure medications > PRN MED USAGE: (Oct) Tylenol for pain used x 0 Tylenol for temp used x 0 Bisacodyl PRN x 3 NEW ORDERS NOTED: > NA Pt was reviewed and discussed in depth, no medication concerns or issues reported at this time, no further recs from rx at this time. Will continue to follow
--- NOTE | 2018-07-02 15:24 | NUR ---
INTERDISCIPLINARY PLAN OF CARE CONFERENCE was held today. Patient's family was unable to attend the meeting. Dr. Underwood and the Interdisciplinary Team reviewed the current plan of care in detail. RN provided updates on patient's medical condition. See RN IDT conference notes. No major changes in condition were reported. See also all other disciplines IDT notes and physician's progress notes for additional details.
[2018-07-02 20:08] VITALS: BP 125/77
[2018-07-02] MEDS: ATORVASTATIN 10 MG TABLET GT SCH (21:23)
[2018-07-02] MEDS: MULTIVIT, IRON, MIN NO. 8, FA TABLET GT SCH (21:23)
[2018-07-03] MEDS: ALBUTEROL SULFATE 2.5 MG/3 ML NEBU NEB SCH ×6 (03:08→22:35)
[2018-07-03] MEDS: IPRATROPIUM BROMIDE 0.5 MG/2.5 ML NEBU NEB SCH ×6 (03:08→22:35)
[2018-07-03] MEDS: BACLOFEN 10 MG TABLET GT SCH ×3 (06:02→22:10)
[2018-07-03] MEDS: CHOLECALCIFEROL 1,000 UNIT TABLET GT SCH (06:02)
[2018-07-03] MEDS: BUDESONIDE 0.5 MG/2 ML NEBU NEB SCH ×2 (07:02→18:50)
[2018-07-03] MEDS: Z GUARD REMEDY PASTE 57 GM TUBE TOP SCH ×2 (09:00→20:57)
[2018-07-03] MEDS: DOCUSATE SODIUM 100 MG/10 ML LIQUID UDC GT SCH (09:00)
[2018-07-03] MEDS: NUTRISOURCE FIBER 4 GM PACKET GT SCH ×2 (09:00→20:56)
[2018-07-03] MEDS: HYDROGEN PEROXIDE 3% 118 ML BOTTLE TP SCH ×2 (09:00→20:57)
[2018-07-03] MEDS: CALCIUM CARBONATE 500 MG TABLET GT SCH ×2 (09:00→20:56)
--- NOTE | 2018-07-03 13:00 | NUR ---
SEEN BY HALINA Mart AND GARETH Goode AND NNO.
[2018-07-03 20:00] VITALS: BP 114/73
[2018-07-03] MEDS: ATORVASTATIN 10 MG TABLET GT SCH (20:56)
[2018-07-04] MEDS: ALBUTEROL SULFATE 2.5 MG/3 ML NEBU NEB SCH ×6 (03:06→22:35)
[2018-07-04] MEDS: IPRATROPIUM BROMIDE 0.5 MG/2.5 ML NEBU NEB SCH ×6 (03:06→22:35)
[2018-07-04] MEDS: BACLOFEN 10 MG TABLET GT SCH ×3 (05:44→21:52)
[2018-07-04] MEDS: CHOLECALCIFEROL 1,000 UNIT TABLET GT SCH (05:44)
[2018-07-04] MEDS: BUDESONIDE 0.5 MG/2 ML NEBU NEB SCH ×2 (07:47→18:53)
[2018-07-04 08:00] VITALS: BP 111/69
[2018-07-04] MEDS: Z GUARD REMEDY PASTE 57 GM TUBE TOP SCH ×2 (08:31→20:50)
[2018-07-04] MEDS: HYDROGEN PEROXIDE 3% 118 ML BOTTLE TP SCH ×2 (08:31→20:51)
[2018-07-04] MEDS: NUTRISOURCE FIBER 4 GM PACKET GT SCH ×2 (08:31→20:48)
[2018-07-04] MEDS: DOCUSATE SODIUM 100 MG/10 ML LIQUID UDC GT SCH (08:31)
[2018-07-04] MEDS: CALCIUM CARBONATE 500 MG TABLET GT SCH ×2 (08:31→20:48)
[2018-07-04] MEDS: JEVITY 1.2 1000 ML LIQUID GT PRN (17:31)
[2018-07-04 20:46] VITALS: BP 133/77
[2018-07-04] MEDS: ATORVASTATIN 10 MG TABLET GT SCH (20:48)
[2018-07-04] MEDS: MULTIVIT, IRON, MIN NO. 8, FA TABLET GT SCH (20:50)
[2018-07-05] MEDS: IPRATROPIUM BROMIDE 0.5 MG/2.5 ML NEBU NEB SCH ×6 (03:17→23:42)
[2018-07-05] MEDS: ALBUTEROL SULFATE 2.5 MG/3 ML NEBU NEB SCH ×6 (03:17→23:42)
[2018-07-05] MEDS: BACLOFEN 10 MG TABLET GT SCH ×3 (05:45→21:24)
[2018-07-05] MEDS: CHOLECALCIFEROL 1,000 UNIT TABLET GT SCH (05:45)
[2018-07-05] MEDS: BUDESONIDE 0.5 MG/2 ML NEBU NEB SCH ×2 (07:01→19:01)
[2018-07-05] MEDS: NUTRISOURCE FIBER 4 GM PACKET GT SCH ×2 (08:24→21:23)
[2018-07-05] MEDS: Z GUARD REMEDY PASTE 57 GM TUBE TOP SCH ×2 (08:24→21:23)
[2018-07-05] MEDS: HYDROGEN PEROXIDE 3% 118 ML BOTTLE TP SCH ×2 (08:24→21:24)
[2018-07-05] MEDS: DOCUSATE SODIUM 100 MG/10 ML LIQUID UDC GT SCH (08:24)
[2018-07-05] MEDS: CALCIUM CARBONATE 500 MG TABLET GT SCH ×2 (08:24→21:23)
[2018-07-05 12:34] VITALS: BP 113/62
[2018-07-05] MEDS: JEVITY 1.2 1000 ML LIQUID GT PRN (17:08)
[2018-07-05] MEDS: ATORVASTATIN 10 MG TABLET GT SCH (21:23)
[2018-07-05 22:10] VITALS: BP 122/72
[2018-07-06] MEDS: IPRATROPIUM BROMIDE 0.5 MG/2.5 ML NEBU NEB SCH ×6 (03:25→23:19)
[2018-07-06] MEDS: ALBUTEROL SULFATE 2.5 MG/3 ML NEBU NEB SCH ×6 (03:25→23:19)
[2018-07-06] MEDS: BACLOFEN 10 MG TABLET GT SCH ×3 (05:17→21:54)
[2018-07-06] MEDS: CHOLECALCIFEROL 1,000 UNIT TABLET GT SCH (06:24)
[2018-07-06] MEDS: BUDESONIDE 0.5 MG/2 ML NEBU NEB SCH ×2 (07:01→19:03)
[2018-07-06] MEDS: DOCUSATE SODIUM 100 MG/10 ML LIQUID UDC GT SCH (09:00)
[2018-07-06] MEDS: Z GUARD REMEDY PASTE 57 GM TUBE TOP SCH ×2 (09:00→21:53)
[2018-07-06] MEDS: CALCIUM CARBONATE 500 MG TABLET GT SCH ×2 (09:00→21:55)
[2018-07-06] MEDS: HYDROGEN PEROXIDE 3% 118 ML BOTTLE TP SCH ×2 (09:00→21:53)
[2018-07-06] MEDS: NUTRISOURCE FIBER 4 GM PACKET GT SCH ×2 (09:00→21:51)
[2018-07-06 09:01] VITALS: BP 102/66
[2018-07-06] MEDS: JEVITY 1.2 1000 ML LIQUID GT PRN (17:31)
--- NOTE | 2018-07-06 20:43 | NUR ---
daniel cameron n.p. was in, no new orders.
[2018-07-06] MEDS: MULTIVIT, IRON, MIN NO. 8, FA TABLET GT SCH (21:51)
[2018-07-06] MEDS: ATORVASTATIN 10 MG TABLET GT SCH (21:51)
[2018-07-06 22:51] VITALS: BP 116/69
[2018-07-07] MEDS: IPRATROPIUM BROMIDE 0.5 MG/2.5 ML NEBU NEB SCH ×6 (03:15→23:41)
[2018-07-07] MEDS: ALBUTEROL SULFATE 2.5 MG/3 ML NEBU NEB SCH ×6 (03:15→23:41)
[2018-07-07] MEDS: BACLOFEN 10 MG TABLET GT SCH ×3 (05:29→21:40)
[2018-07-07] MEDS: CHOLECALCIFEROL 1,000 UNIT TABLET GT SCH (05:30)
[2018-07-07] MEDS: BUDESONIDE 0.5 MG/2 ML NEBU NEB SCH ×2 (06:53→19:57)
[2018-07-07 08:07] VITALS: BP 93/53
[2018-07-07] MEDS: DOCUSATE SODIUM 100 MG/10 ML LIQUID UDC GT SCH (08:20)
[2018-07-07] MEDS: NUTRISOURCE FIBER 4 GM PACKET GT SCH ×2 (08:20→21:40)
[2018-07-07] MEDS: Z GUARD REMEDY PASTE 57 GM TUBE TOP SCH ×2 (08:21→21:40)
[2018-07-07] MEDS: HYDROGEN PEROXIDE 3% 118 ML BOTTLE TP SCH ×2 (08:21→21:40)
[2018-07-07] MEDS: CALCIUM CARBONATE 500 MG TABLET GT SCH ×2 (08:21→21:40)
--- NOTE | 2018-07-07 10:51 | NUR ---
Seen and examined by dr Palomino,no new orders.
[2018-07-07] MEDS: ATORVASTATIN 10 MG TABLET GT SCH (21:40)
[2018-07-07 21:56] VITALS: BP 130/80
[2018-07-08] MEDS: IPRATROPIUM BROMIDE 0.5 MG/2.5 ML NEBU NEB SCH ×6 (02:43→22:39)
[2018-07-08] MEDS: ALBUTEROL SULFATE 2.5 MG/3 ML NEBU NEB SCH ×6 (02:43→22:39)
[2018-07-08] MEDS: CHOLECALCIFEROL 1,000 UNIT TABLET GT SCH (05:59)
[2018-07-08] MEDS: BACLOFEN 10 MG TABLET GT SCH ×3 (05:59→21:29)
[2018-07-08] MEDS: BUDESONIDE 0.5 MG/2 ML NEBU NEB SCH ×2 (06:51→19:48)
[2018-07-08 08:00] VITALS: BP 120/77
[2018-07-08] MEDS: CALCIUM CARBONATE 500 MG TABLET GT SCH ×2 (08:18→21:29)
[2018-07-08] MEDS: NUTRISOURCE FIBER 4 GM PACKET GT SCH ×2 (08:18→21:29)
[2018-07-08] MEDS: HYDROGEN PEROXIDE 3% 118 ML BOTTLE TP SCH ×2 (08:18→21:29)
[2018-07-08] MEDS: Z GUARD REMEDY PASTE 57 GM TUBE TOP SCH ×2 (08:18→21:29)
[2018-07-08] MEDS: DOCUSATE SODIUM 100 MG/10 ML LIQUID UDC GT SCH (08:18)
[2018-07-08] MEDS: JEVITY 1.2 1000 ML LIQUID GT PRN (16:12)
[2018-07-08] MEDS: ATORVASTATIN 10 MG TABLET GT SCH (21:29)
[2018-07-08] MEDS: MULTIVIT, IRON, MIN NO. 8, FA TABLET GT SCH (21:29)
[2018-07-08] MEDS: NEOMY/BACITRA/POLYMYXIN B OINT UD PACKET TP SCH (21:35)
[2018-07-08 22:28] VITALS: BP 130/83
[2018-07-09] MEDS: IPRATROPIUM BROMIDE 0.5 MG/2.5 ML NEBU NEB SCH ×6 (03:12→22:32)
[2018-07-09] MEDS: ALBUTEROL SULFATE 2.5 MG/3 ML NEBU NEB SCH ×6 (03:12→22:32)
[2018-07-09] MEDS: CHOLECALCIFEROL 1,000 UNIT TABLET GT SCH (06:03)
[2018-07-09] MEDS: BACLOFEN 10 MG TABLET GT SCH ×3 (06:03→21:39)
[2018-07-09] MEDS: BUDESONIDE 0.5 MG/2 ML NEBU NEB SCH ×2 (07:11→19:44)
[2018-07-09 08:00] VITALS: BP 130/76
[2018-07-09] MEDS: DOCUSATE SODIUM 100 MG/10 ML LIQUID UDC GT SCH (08:55)
[2018-07-09] MEDS: HYDROGEN PEROXIDE 3% 118 ML BOTTLE TP SCH ×2 (08:55→21:39)
[2018-07-09] MEDS: CALCIUM CARBONATE 500 MG TABLET GT SCH ×2 (08:55→21:38)
[2018-07-09] MEDS: NEOMY/BACITRA/POLYMYXIN B OINT UD PACKET TP SCH ×2 (08:55→21:39)
[2018-07-09] MEDS: NUTRISOURCE FIBER 4 GM PACKET GT SCH ×2 (08:55→21:37)
[2018-07-09] MEDS: Z GUARD REMEDY PASTE 57 GM TUBE TOP SCH ×2 (08:55→21:39)
[2018-07-09] MEDS: JEVITY 1.2 1000 ML LIQUID GT PRN (14:16)
[2018-07-09 20:00] VITALS: BP 122/77
[2018-07-09] MEDS: ATORVASTATIN 10 MG TABLET GT SCH (21:37)
[2018-07-10] MEDS: ALBUTEROL SULFATE 2.5 MG/3 ML NEBU NEB SCH ×6 (02:56→23:33)
[2018-07-10] MEDS: IPRATROPIUM BROMIDE 0.5 MG/2.5 ML NEBU NEB SCH ×6 (02:56→23:33)
[2018-07-10] MEDS: CHOLECALCIFEROL 1,000 UNIT TABLET GT SCH (06:22)
[2018-07-10] MEDS: BACLOFEN 10 MG TABLET GT SCH ×3 (06:22→21:37)
[2018-07-10] MEDS: BUDESONIDE 0.5 MG/2 ML NEBU NEB SCH ×2 (07:10→20:21)
[2018-07-10 08:00] VITALS: BP 114/74
[2018-07-10] MEDS: HYDROGEN PEROXIDE 3% 118 ML BOTTLE TP SCH ×2 (09:14→21:37)
[2018-07-10] MEDS: NUTRISOURCE FIBER 4 GM PACKET GT SCH ×2 (09:14→21:36)
[2018-07-10] MEDS: CALCIUM CARBONATE 500 MG TABLET GT SCH ×2 (09:14→21:37)
[2018-07-10] MEDS: NEOMY/BACITRA/POLYMYXIN B OINT UD PACKET TP SCH ×2 (09:14→21:37)
[2018-07-10] MEDS: Z GUARD REMEDY PASTE 57 GM TUBE TOP SCH ×2 (09:14→21:37)
[2018-07-10] MEDS: DOCUSATE SODIUM 100 MG/10 ML LIQUID UDC GT SCH (09:14)
[2018-07-10] MEDS: JEVITY 1.2 1000 ML LIQUID GT PRN (15:33)
--- NOTE | 2018-07-10 18:00 | NUR ---
Seen and examined by Dr Weiner,no new orders.
[2018-07-10 20:45] VITALS: BP 131/78
[2018-07-10] MEDS: ATORVASTATIN 10 MG TABLET GT SCH (21:36)
[2018-07-10] MEDS: MULTIVIT, IRON, MIN NO. 8, FA TABLET GT SCH (21:37)
[2018-07-11] MEDS: IPRATROPIUM BROMIDE 0.5 MG/2.5 ML NEBU NEB SCH ×6 (03:16→23:11)
[2018-07-11] MEDS: ALBUTEROL SULFATE 2.5 MG/3 ML NEBU NEB SCH ×6 (03:16→23:11)
[2018-07-11] MEDS: BACLOFEN 10 MG TABLET GT SCH ×3 (06:16→22:06)
[2018-07-11] MEDS: CHOLECALCIFEROL 1,000 UNIT TABLET GT SCH (06:17)
[2018-07-11] MEDS: BUDESONIDE 0.5 MG/2 ML NEBU NEB SCH ×2 (06:55→18:48)
[2018-07-11 08:00] VITALS: BP 112/67
[2018-07-11] MEDS: DOCUSATE SODIUM 100 MG/10 ML LIQUID UDC GT SCH (09:21)
[2018-07-11] MEDS: NUTRISOURCE FIBER 4 GM PACKET GT SCH ×2 (09:21→21:00)
[2018-07-11] MEDS: Z GUARD REMEDY PASTE 57 GM TUBE TOP SCH ×2 (09:21→21:00)
[2018-07-11] MEDS: CALCIUM CARBONATE 500 MG TABLET GT SCH ×2 (09:21→21:00)
[2018-07-11] MEDS: NEOMY/BACITRA/POLYMYXIN B OINT UD PACKET TP SCH ×2 (09:22→21:00)
[2018-07-11] MEDS: HYDROGEN PEROXIDE 3% 118 ML BOTTLE TP SCH ×2 (09:22→21:00)
[2018-07-11] MEDS: JEVITY 1.2 1000 ML LIQUID GT PRN (13:16)
[2018-07-11 20:12] VITALS: BP 111/70
[2018-07-11] MEDS: ATORVASTATIN 10 MG TABLET GT SCH (21:00)
[2018-07-12] MEDS: ALBUTEROL SULFATE 2.5 MG/3 ML NEBU NEB SCH ×6 (02:40→22:35)
[2018-07-12] MEDS: IPRATROPIUM BROMIDE 0.5 MG/2.5 ML NEBU NEB SCH ×6 (02:40→22:35)
[2018-07-12] MEDS: BACLOFEN 10 MG TABLET GT SCH ×3 (06:44→21:37)
[2018-07-12] MEDS: CHOLECALCIFEROL 1,000 UNIT TABLET GT SCH (06:44)
[2018-07-12] MEDS: BUDESONIDE 0.5 MG/2 ML NEBU NEB SCH ×2 (06:59→18:56)
[2018-07-12 08:00] VITALS: BP 125/86
[2018-07-12] MEDS: NUTRISOURCE FIBER 4 GM PACKET GT SCH ×2 (09:53→21:37)
[2018-07-12] MEDS: HYDROGEN PEROXIDE 3% 118 ML BOTTLE TP SCH ×2 (09:54→21:37)
[2018-07-12] MEDS: Z GUARD REMEDY PASTE 57 GM TUBE TOP SCH ×2 (09:54→21:37)
[2018-07-12] MEDS: CALCIUM CARBONATE 500 MG TABLET GT SCH ×2 (09:54→21:37)
[2018-07-12] MEDS: DOCUSATE SODIUM 100 MG/10 ML LIQUID UDC GT SCH (09:54)
[2018-07-12] MEDS: JEVITY 1.2 1000 ML LIQUID GT PRN (10:15)
[2018-07-12] MEDS: NEOMY/BACITRA/POLYMYXIN B OINT UD PACKET TP SCH ×2 (10:17→21:37)
[2018-07-12] MEDS: MULTIVIT, IRON, MIN NO. 8, FA TABLET GT SCH (21:37)
[2018-07-12] MEDS: ATORVASTATIN 10 MG TABLET GT SCH (21:37)
[2018-07-12 22:14] VITALS: BP 121/74
[2018-07-13] MEDS: ALBUTEROL SULFATE 2.5 MG/3 ML NEBU NEB SCH ×6 (03:50→22:31)
[2018-07-13] MEDS: IPRATROPIUM BROMIDE 0.5 MG/2.5 ML NEBU NEB SCH ×6 (03:50→22:31)
[2018-07-13] MEDS: CHOLECALCIFEROL 1,000 UNIT TABLET GT SCH (05:33)
[2018-07-13] MEDS: BACLOFEN 10 MG TABLET GT SCH ×3 (05:33→21:04)
[2018-07-13] MEDS: JEVITY 1.2 1000 ML LIQUID GT PRN (06:50)
[2018-07-13] MEDS: BUDESONIDE 0.5 MG/2 ML NEBU NEB SCH ×2 (07:23→19:55)
[2018-07-13] MEDS: HYDROGEN PEROXIDE 3% 118 ML BOTTLE TP SCH ×2 (08:15→20:07)
[2018-07-13] MEDS: DOCUSATE SODIUM 100 MG/10 ML LIQUID UDC GT SCH (08:15)
[2018-07-13] MEDS: CALCIUM CARBONATE 500 MG TABLET GT SCH ×2 (08:15→20:07)
[2018-07-13] MEDS: NEOMY/BACITRA/POLYMYXIN B OINT UD PACKET TP SCH ×2 (08:15→20:07)
[2018-07-13] MEDS: NUTRISOURCE FIBER 4 GM PACKET GT SCH ×2 (08:15→20:07)
[2018-07-13] MEDS: Z GUARD REMEDY PASTE 57 GM TUBE TOP SCH ×2 (08:15→20:07)
[2018-07-13 10:11] VITALS: BP 99/57
--- NOTE | 2018-07-13 15:34 | NUR ---
NEW ORDER CARRIED OUT FOR LOCAL TX ON GT SITE EXCORIATION FROM DR. DOMINGUEZ.
[2018-07-13] MEDS: COD LIVER OIL/ZINC OXIDE OINT 113 GM TUBE TP SCH (20:07)
[2018-07-13] MEDS: ATORVASTATIN 10 MG TABLET GT SCH (20:07)
[2018-07-13 21:48] VITALS: BP 133/82
[2018-07-14] MEDS: ALBUTEROL SULFATE 2.5 MG/3 ML NEBU NEB SCH ×6 (02:30→22:32)
[2018-07-14] MEDS: IPRATROPIUM BROMIDE 0.5 MG/2.5 ML NEBU NEB SCH ×6 (02:30→22:32)
[2018-07-14] MEDS: BACLOFEN 10 MG TABLET GT SCH ×3 (05:36→21:50)
[2018-07-14] MEDS: CHOLECALCIFEROL 1,000 UNIT TABLET GT SCH (05:36)
[2018-07-14] MEDS: BUDESONIDE 0.5 MG/2 ML NEBU NEB SCH ×2 (07:39→19:50)
[2018-07-14 08:00] VITALS: BP 103/71
[2018-07-14] MEDS: CALCIUM CARBONATE 500 MG TABLET GT SCH ×2 (09:00→21:50)
[2018-07-14] MEDS: Z GUARD REMEDY PASTE 57 GM TUBE TOP SCH ×2 (09:00→21:50)
[2018-07-14] MEDS: NUTRISOURCE FIBER 4 GM PACKET GT SCH ×2 (09:00→21:50)
[2018-07-14] MEDS: COD LIVER OIL/ZINC OXIDE OINT 113 GM TUBE TP SCH ×2 (09:00→21:50)
[2018-07-14] MEDS: HYDROGEN PEROXIDE 3% 118 ML BOTTLE TP SCH ×2 (09:00→21:50)
[2018-07-14] MEDS: NEOMY/BACITRA/POLYMYXIN B OINT UD PACKET TP SCH ×2 (09:00→21:50)
[2018-07-14] MEDS: DOCUSATE SODIUM 100 MG/10 ML LIQUID UDC GT SCH (09:00)
[2018-07-14] MEDS: JEVITY 1.2 1000 ML LIQUID GT PRN (10:50)
[2018-07-14] MEDS: ATORVASTATIN 10 MG TABLET GT SCH (21:49)
[2018-07-14] MEDS: MULTIVIT, IRON, MIN NO. 8, FA TABLET GT SCH (21:52)
[2018-07-14 23:06] VITALS: BP 117/82
[2018-07-15] MEDS: IPRATROPIUM BROMIDE 0.5 MG/2.5 ML NEBU NEB SCH ×6 (02:38→22:36)
[2018-07-15] MEDS: ALBUTEROL SULFATE 2.5 MG/3 ML NEBU NEB SCH ×6 (02:39→22:36)
[2018-07-15] MEDS: CHOLECALCIFEROL 1,000 UNIT TABLET GT SCH (06:10)
[2018-07-15] MEDS: BACLOFEN 10 MG TABLET GT SCH ×3 (06:12→21:27)
[2018-07-15] MEDS: BUDESONIDE 0.5 MG/2 ML NEBU NEB SCH ×2 (07:22→19:11)
[2018-07-15] MEDS: Z GUARD REMEDY PASTE 57 GM TUBE TOP SCH ×2 (09:11→21:27)
[2018-07-15] MEDS: NEOMY/BACITRA/POLYMYXIN B OINT UD PACKET TP SCH ×2 (09:11→21:27)
[2018-07-15] MEDS: DOCUSATE SODIUM 100 MG/10 ML LIQUID UDC GT SCH (09:11)
[2018-07-15] MEDS: HYDROGEN PEROXIDE 3% 118 ML BOTTLE TP SCH ×2 (09:11→21:27)
[2018-07-15] MEDS: NUTRISOURCE FIBER 4 GM PACKET GT SCH ×2 (09:11→21:26)
[2018-07-15] MEDS: CALCIUM CARBONATE 500 MG TABLET GT SCH ×2 (09:11→21:29)
[2018-07-15] MEDS: COD LIVER OIL/ZINC OXIDE OINT 113 GM TUBE TP SCH ×2 (09:11→21:27)
[2018-07-15 11:34] VITALS: BP 117/75
--- NOTE | 2018-07-15 17:34 | NUR ---
SEEN BY GARETH JETER.
[2018-07-15] MEDS: ATORVASTATIN 10 MG TABLET GT SCH (21:27)
[2018-07-15 22:37] VITALS: BP 129/87
[2018-07-16] MEDS: ALBUTEROL SULFATE 2.5 MG/3 ML NEBU NEB SCH ×5 (04:07→20:49)
[2018-07-16] MEDS: IPRATROPIUM BROMIDE 0.5 MG/2.5 ML NEBU NEB SCH ×5 (04:07→20:49)
[2018-07-16] MEDS: BACLOFEN 10 MG TABLET GT SCH ×3 (05:58→22:27)
[2018-07-16] MEDS: CHOLECALCIFEROL 1,000 UNIT TABLET GT SCH (05:58)
[2018-07-16] MEDS: BISACODYL 10 MG SUPP.RECT RC PRN (06:16)
[2018-07-16] MEDS: BUDESONIDE 0.5 MG/2 ML NEBU NEB SCH ×2 (07:50→21:06)
[2018-07-16] MEDS: NEOMY/BACITRA/POLYMYXIN B OINT UD PACKET TP SCH ×2 (09:00→21:00)
[2018-07-16] MEDS: DOCUSATE SODIUM 100 MG/10 ML LIQUID UDC GT SCH (09:00)
[2018-07-16] MEDS: COD LIVER OIL/ZINC OXIDE OINT 113 GM TUBE TP SCH ×2 (09:00→21:00)
[2018-07-16] MEDS: Z GUARD REMEDY PASTE 57 GM TUBE TOP SCH ×2 (09:00→21:00)
[2018-07-16] MEDS: CALCIUM CARBONATE 500 MG TABLET GT SCH ×2 (09:00→21:00)
[2018-07-16] MEDS: HYDROGEN PEROXIDE 3% 118 ML BOTTLE TP SCH ×2 (09:00→21:00)
[2018-07-16] MEDS: NUTRISOURCE FIBER 4 GM PACKET GT SCH ×2 (09:00→21:00)
[2018-07-16 12:09] VITALS: BP 120/72
[2018-07-16] MEDS: ATORVASTATIN 10 MG TABLET GT SCH (21:00)
[2018-07-16] MEDS: MULTIVIT, IRON, MIN NO. 8, FA TABLET GT SCH (21:00)
[2018-07-16 21:23] VITALS: BP 125/79
[2018-07-17] MEDS: IPRATROPIUM BROMIDE 0.5 MG/2.5 ML NEBU NEB SCH ×7 (00:07→22:30)
[2018-07-17] MEDS: ALBUTEROL SULFATE 2.5 MG/3 ML NEBU NEB SCH ×7 (00:07→22:30)
[2018-07-17] MEDS: BACLOFEN 10 MG TABLET GT SCH ×3 (06:27→22:04)
[2018-07-17] MEDS: CHOLECALCIFEROL 1,000 UNIT TABLET GT SCH (06:27)
[2018-07-17] MEDS: BUDESONIDE 0.5 MG/2 ML NEBU NEB SCH ×2 (06:55→20:07)
[2018-07-17 08:09] VITALS: BP 121/82
[2018-07-17] MEDS: NUTRISOURCE FIBER 4 GM PACKET GT SCH ×2 (09:00→20:12)
[2018-07-17] MEDS: NEOMY/BACITRA/POLYMYXIN B OINT UD PACKET TP SCH ×2 (09:00→20:13)
[2018-07-17] MEDS: COD LIVER OIL/ZINC OXIDE OINT 113 GM TUBE TP SCH ×2 (09:00→20:12)
[2018-07-17] MEDS: HYDROGEN PEROXIDE 3% 118 ML BOTTLE TP SCH ×2 (09:00→20:13)
[2018-07-17] MEDS: DOCUSATE SODIUM 100 MG/10 ML LIQUID UDC GT SCH (09:00)
[2018-07-17] MEDS: Z GUARD REMEDY PASTE 57 GM TUBE TOP SCH ×2 (09:00→20:12)
[2018-07-17] MEDS: CALCIUM CARBONATE 500 MG TABLET GT SCH ×2 (09:00→20:12)
--- NOTE | 2018-07-17 14:15 | NUR ---
Seen and examined by Myrtle Shea,no new orders noted.
[2018-07-17] MEDS: ATORVASTATIN 10 MG TABLET GT SCH (20:12)
[2018-07-17 20:22] VITALS: BP 123/74
[2018-07-18] MEDS: ALBUTEROL SULFATE 2.5 MG/3 ML NEBU NEB SCH ×6 (02:33→22:30)
[2018-07-18] MEDS: IPRATROPIUM BROMIDE 0.5 MG/2.5 ML NEBU NEB SCH ×6 (02:33→22:30)
[2018-07-18] MEDS: CHOLECALCIFEROL 1,000 UNIT TABLET GT SCH (05:50)
[2018-07-18] MEDS: BACLOFEN 10 MG TABLET GT SCH ×3 (05:50→22:15)
[2018-07-18] MEDS: BUDESONIDE 0.5 MG/2 ML NEBU NEB SCH ×2 (07:03→19:57)
[2018-07-18] MEDS: COD LIVER OIL/ZINC OXIDE OINT 113 GM TUBE TP SCH ×2 (09:46→20:51)
[2018-07-18] MEDS: CALCIUM CARBONATE 500 MG TABLET GT SCH ×2 (09:46→20:51)
[2018-07-18] MEDS: DOCUSATE SODIUM 100 MG/10 ML LIQUID UDC GT SCH (09:46)
[2018-07-18] MEDS: NEOMY/BACITRA/POLYMYXIN B OINT UD PACKET TP SCH (09:46)
[2018-07-18] MEDS: NUTRISOURCE FIBER 4 GM PACKET GT SCH ×2 (09:46→20:50)
[2018-07-18] MEDS: Z GUARD REMEDY PASTE 57 GM TUBE TOP SCH ×2 (09:46→20:51)
[2018-07-18] MEDS: HYDROGEN PEROXIDE 3% 118 ML BOTTLE TP SCH ×2 (09:46→20:51)
[2018-07-18 13:10] VITALS: BP 115/64
[2018-07-18] MEDS: ATORVASTATIN 10 MG TABLET GT SCH (20:50)
[2018-07-18] MEDS: MULTIVIT, IRON, MIN NO. 8, FA TABLET GT SCH (20:51)
[2018-07-18 20:53] VITALS: BP 107/65
[2018-07-19] MEDS: ALBUTEROL SULFATE 2.5 MG/3 ML NEBU NEB SCH ×6 (02:33→23:59)
[2018-07-19] MEDS: IPRATROPIUM BROMIDE 0.5 MG/2.5 ML NEBU NEB SCH ×6 (02:33→23:59)
[2018-07-19] MEDS: JEVITY 1.2 1000 ML LIQUID GT PRN (02:36)
[2018-07-19] MEDS: CHOLECALCIFEROL 1,000 UNIT TABLET GT SCH (05:49)
[2018-07-19] MEDS: BACLOFEN 10 MG TABLET GT SCH ×3 (05:49→22:00)
[2018-07-19] MEDS: BUDESONIDE 0.5 MG/2 ML NEBU NEB SCH ×2 (07:01→20:58)
[2018-07-19] MEDS: DOCUSATE SODIUM 100 MG/10 ML LIQUID UDC GT SCH (09:52)
[2018-07-19] MEDS: NUTRISOURCE FIBER 4 GM PACKET GT SCH ×2 (09:53→21:00)
[2018-07-19] MEDS: Z GUARD REMEDY PASTE 57 GM TUBE TOP SCH ×2 (09:53→21:00)
[2018-07-19] MEDS: HYDROGEN PEROXIDE 3% 118 ML BOTTLE TP SCH ×2 (09:53→21:00)
[2018-07-19] MEDS: CALCIUM CARBONATE 500 MG TABLET GT SCH ×2 (09:53→21:00)
[2018-07-19] MEDS: COD LIVER OIL/ZINC OXIDE OINT 113 GM TUBE TP SCH ×2 (09:53→21:00)
[2018-07-19 10:58] VITALS: BP 113/58
--- NOTE | 2018-07-19 19:16 | NUR ---
Hand-off report received from off-going nurse per bedside rounds. Pt in bed. eyes open and close, no tracking. Cool aerosol @ 30%FI02 trachemask. Shiley patent and secure at midline. No resp. distress. Peg tube intact and patent infusing Jevity 1.2 @ 45 ml/hr. No leaks. Facial flushed. Skin dry and warm. Continue to monitor and assist as needed.
[2018-07-19 20:44] VITALS: BP 139/85
[2018-07-19] MEDS: ATORVASTATIN 10 MG TABLET GT SCH (21:00)
[2018-07-20] MEDS: IPRATROPIUM BROMIDE 0.5 MG/2.5 ML NEBU NEB SCH ×5 (03:11→19:56)
[2018-07-20] MEDS: ALBUTEROL SULFATE 2.5 MG/3 ML NEBU NEB SCH ×5 (03:11→19:56)
[2018-07-20] MEDS: CHOLECALCIFEROL 1,000 UNIT TABLET GT SCH (06:30)
[2018-07-20] MEDS: BACLOFEN 10 MG TABLET GT SCH ×3 (06:30→22:00)
--- NOTE | 2018-07-20 07:26 | NUR ---
Hand-off report given to on-coming nurse per bedside rounds. Pt status remains unchanged. Relinquished care of pt at this time.
[2018-07-20] MEDS: BUDESONIDE 0.5 MG/2 ML NEBU NEB SCH ×2 (07:38→20:03)
[2018-07-20] MEDS: DOCUSATE SODIUM 100 MG/10 ML LIQUID UDC GT SCH (09:00)
[2018-07-20] MEDS: CALCIUM CARBONATE 500 MG TABLET GT SCH ×2 (09:00→21:00)
[2018-07-20] MEDS: COD LIVER OIL/ZINC OXIDE OINT 113 GM TUBE TP SCH ×2 (09:00→21:00)
[2018-07-20] MEDS: NUTRISOURCE FIBER 4 GM PACKET GT SCH ×2 (09:00→21:00)
[2018-07-20] MEDS: Z GUARD REMEDY PASTE 57 GM TUBE TOP SCH ×2 (09:00→21:00)
[2018-07-20] MEDS: HYDROGEN PEROXIDE 3% 118 ML BOTTLE TP SCH ×2 (09:00→21:00)
[2018-07-20 11:59] VITALS: BP 102/68
--- NOTE | 2018-07-20 19:25 | NUR ---
Hand-off report received from off-going nurse per bedside rounds. Received in bed, eyes open and closed intermittently, no response to verbal stimuli. No tracking. No respiratory distress.CA2 28% Shiley #8 secured and patent @ midline. Jevity 1.2 @ 50 ml/hr infusing thru G tube via pump. Facial flush less than yesterday at this same time. Skin warm and dry. Call light w/in reach. Cont. to monitor and assist as needed.
[2018-07-20 20:21] VITALS: BP 102/74
[2018-07-20] MEDS: MULTIVIT, IRON, MIN NO. 8, FA TABLET GT SCH (21:00)
[2018-07-20] MEDS: ATORVASTATIN 10 MG TABLET GT SCH (21:00)
[2018-07-21] MEDS: IPRATROPIUM BROMIDE 0.5 MG/2.5 ML NEBU NEB SCH ×7 (00:02→23:43)
[2018-07-21] MEDS: ALBUTEROL SULFATE 2.5 MG/3 ML NEBU NEB SCH ×7 (00:02→23:43)
[2018-07-21] MEDS: BACLOFEN 10 MG TABLET GT SCH ×3 (06:00→22:00)
[2018-07-21] MEDS: CHOLECALCIFEROL 1,000 UNIT TABLET GT SCH (07:22)
--- NOTE | 2018-07-21 07:30 | NUR ---
Hand-off report given to Eli LOPEZ per walking rounds. Pt status remains unchanged. Awake in bed with eyes open. Restful night. Relinquished care of pt at this time.
[2018-07-21] MEDS: CALCIUM CARBONATE 500 MG TABLET GT SCH ×2 (08:00→21:00)
[2018-07-21] MEDS: DOCUSATE SODIUM 100 MG/10 ML LIQUID UDC GT SCH (08:00)
[2018-07-21] MEDS: NUTRISOURCE FIBER 4 GM PACKET GT SCH ×2 (08:00→21:00)
[2018-07-21] MEDS: Z GUARD REMEDY PASTE 57 GM TUBE TOP SCH ×2 (08:01→21:00)
[2018-07-21] MEDS: HYDROGEN PEROXIDE 3% 118 ML BOTTLE TP SCH ×2 (08:01→21:00)
[2018-07-21] MEDS: COD LIVER OIL/ZINC OXIDE OINT 113 GM TUBE TP SCH ×2 (08:01→21:00)
[2018-07-21] MEDS: BUDESONIDE 0.5 MG/2 ML NEBU NEB SCH ×2 (08:02→20:45)
[2018-07-21 11:05] VITALS: BP 98/40
--- NOTE | 2018-07-21 19:15 | NUR ---
Received report from off-going nurse. Eyes open. No tracking. No response to verbal stimuli. No resp distress. Enteral feeding continued. Monitor and assist as needed.
--- NOTE | 2018-07-21 19:15 | NUR ---
Report received from Eli LOPEZ. No wheezing or resp distress noted. CA @28% FI02 w/trach mask #6 Shiley patent/secured @ midline. Enteral feeding cont. Monitor and assist as needed.
[2018-07-21 20:49] VITALS: BP 117/79
[2018-07-21] MEDS: ATORVASTATIN 10 MG TABLET GT SCH (21:00)
[2018-07-22] MEDS: ALBUTEROL SULFATE 2.5 MG/3 ML NEBU NEB SCH ×6 (03:23→23:10)
[2018-07-22] MEDS: IPRATROPIUM BROMIDE 0.5 MG/2.5 ML NEBU NEB SCH ×6 (03:23→23:10)
[2018-07-22] MEDS: CHOLECALCIFEROL 1,000 UNIT TABLET GT SCH (06:47)
[2018-07-22] MEDS: BACLOFEN 10 MG TABLET GT SCH ×3 (06:47→21:11)
[2018-07-22] MEDS: BUDESONIDE 0.5 MG/2 ML NEBU NEB SCH ×2 (07:02→19:54)
[2018-07-22] MEDS: HYDROGEN PEROXIDE 3% 118 ML BOTTLE TP SCH ×2 (09:04→21:11)
[2018-07-22] MEDS: COD LIVER OIL/ZINC OXIDE OINT 113 GM TUBE TP SCH ×2 (09:04→21:11)
[2018-07-22] MEDS: NUTRISOURCE FIBER 4 GM PACKET GT SCH ×2 (09:04→21:10)
[2018-07-22] MEDS: CALCIUM CARBONATE 500 MG TABLET GT SCH ×2 (09:04→21:10)
[2018-07-22] MEDS: DOCUSATE SODIUM 100 MG/10 ML LIQUID UDC GT SCH (09:04)
[2018-07-22] MEDS: Z GUARD REMEDY PASTE 57 GM TUBE TOP SCH ×2 (09:04→21:11)
[2018-07-22 14:23] VITALS: BP 117/66
[2018-07-22 21:05] VITALS: BP 117/80
[2018-07-22] MEDS: ATORVASTATIN 10 MG TABLET GT SCH (21:10)
[2018-07-22] MEDS: MULTIVIT, IRON, MIN NO. 8, FA TABLET GT SCH (21:11)
[2018-07-23] MEDS: JEVITY 1.2 1000 ML LIQUID GT PRN ×2 (00:14→21:53)
[2018-07-23] MEDS: ALBUTEROL SULFATE 2.5 MG/3 ML NEBU NEB SCH ×6 (02:58→22:31)
[2018-07-23] MEDS: IPRATROPIUM BROMIDE 0.5 MG/2.5 ML NEBU NEB SCH ×6 (02:58→22:31)
[2018-07-23] MEDS: BACLOFEN 10 MG TABLET GT SCH ×3 (05:53→21:43)
[2018-07-23] MEDS: CHOLECALCIFEROL 1,000 UNIT TABLET GT SCH (05:53)
[2018-07-23] MEDS: BUDESONIDE 0.5 MG/2 ML NEBU NEB SCH ×2 (07:01→19:39)
[2018-07-23] MEDS: CALCIUM CARBONATE 500 MG TABLET GT SCH ×2 (08:52→21:42)
[2018-07-23] MEDS: DOCUSATE SODIUM 100 MG/10 ML LIQUID UDC GT SCH (08:52)
[2018-07-23] MEDS: NUTRISOURCE FIBER 4 GM PACKET GT SCH ×2 (08:52→21:42)
[2018-07-23] MEDS: COD LIVER OIL/ZINC OXIDE OINT 113 GM TUBE TP SCH ×2 (08:53→21:42)
[2018-07-23] MEDS: HYDROGEN PEROXIDE 3% 118 ML BOTTLE TP SCH ×2 (08:53→21:42)
[2018-07-23] MEDS: Z GUARD REMEDY PASTE 57 GM TUBE TOP SCH ×2 (08:53→21:42)
[2018-07-23 21:08] VITALS: BP 102/82
[2018-07-23] MEDS: ATORVASTATIN 10 MG TABLET GT SCH (21:42)
[2018-07-24] MEDS: IPRATROPIUM BROMIDE 0.5 MG/2.5 ML NEBU NEB SCH ×6 (02:35→23:59)
[2018-07-24] MEDS: ALBUTEROL SULFATE 2.5 MG/3 ML NEBU NEB SCH ×6 (02:35→23:59)
[2018-07-24] MEDS: BACLOFEN 10 MG TABLET GT SCH ×3 (05:45→21:15)
[2018-07-24] MEDS: CHOLECALCIFEROL 1,000 UNIT TABLET GT SCH (05:45)
[2018-07-24 08:00] VITALS: BP 100/63
[2018-07-24] MEDS: BUDESONIDE 0.5 MG/2 ML NEBU NEB SCH ×2 (08:01→20:56)
[2018-07-24] MEDS: NUTRISOURCE FIBER 4 GM PACKET GT SCH ×2 (09:00→21:15)
[2018-07-24] MEDS: CALCIUM CARBONATE 500 MG TABLET GT SCH ×2 (09:00→21:15)
[2018-07-24] MEDS: HYDROGEN PEROXIDE 3% 118 ML BOTTLE TP SCH ×2 (09:00→21:15)
[2018-07-24] MEDS: COD LIVER OIL/ZINC OXIDE OINT 113 GM TUBE TP SCH ×2 (09:00→21:15)
[2018-07-24] MEDS: Z GUARD REMEDY PASTE 57 GM TUBE TOP SCH ×2 (09:00→21:15)
[2018-07-24] MEDS: DOCUSATE SODIUM 100 MG/10 ML LIQUID UDC GT SCH (09:00)
[2018-07-24 20:00] VITALS: BP 127/80
[2018-07-24] MEDS: ATORVASTATIN 10 MG TABLET GT SCH (21:15)
[2018-07-24] MEDS: MULTIVIT, IRON, MIN NO. 8, FA TABLET GT SCH (21:15)
[2018-07-25] MEDS: ALBUTEROL SULFATE 2.5 MG/3 ML NEBU NEB SCH ×5 (03:00→20:38)
[2018-07-25] MEDS: IPRATROPIUM BROMIDE 0.5 MG/2.5 ML NEBU NEB SCH ×5 (03:00→20:38)
[2018-07-25] MEDS: JEVITY 1.2 1000 ML LIQUID GT PRN (03:30)
[2018-07-25] MEDS: CHOLECALCIFEROL 1,000 UNIT TABLET GT SCH (05:51)
[2018-07-25] MEDS: BACLOFEN 10 MG TABLET GT SCH ×3 (05:51→21:19)
[2018-07-25] MEDS: BUDESONIDE 0.5 MG/2 ML NEBU NEB SCH ×2 (07:08→20:55)
[2018-07-25 08:00] VITALS: BP 136/81
[2018-07-25] MEDS: HYDROGEN PEROXIDE 3% 118 ML BOTTLE TP SCH ×2 (09:38→21:19)
[2018-07-25] MEDS: Z GUARD REMEDY PASTE 57 GM TUBE TOP SCH ×2 (09:38→21:19)
[2018-07-25] MEDS: DOCUSATE SODIUM 100 MG/10 ML LIQUID UDC GT SCH (09:38)
[2018-07-25] MEDS: CALCIUM CARBONATE 500 MG TABLET GT SCH ×2 (09:38→21:19)
[2018-07-25] MEDS: NUTRISOURCE FIBER 4 GM PACKET GT SCH ×2 (09:38→21:19)
[2018-07-25] MEDS: COD LIVER OIL/ZINC OXIDE OINT 113 GM TUBE TP SCH ×2 (09:38→21:19)
[2018-07-25 20:00] VITALS: BP 132/87
[2018-07-25] MEDS: ATORVASTATIN 10 MG TABLET GT SCH (21:18)
[2018-07-26] MEDS: JEVITY 1.2 1000 ML LIQUID GT PRN (03:12)
[2018-07-26] MEDS: IPRATROPIUM BROMIDE 0.5 MG/2.5 ML NEBU NEB SCH ×7 (04:17→22:53)
[2018-07-26] MEDS: ALBUTEROL SULFATE 2.5 MG/3 ML NEBU NEB SCH ×7 (04:17→22:53)
[2018-07-26] MEDS: BACLOFEN 10 MG TABLET GT SCH ×3 (05:15→21:04)
[2018-07-26] MEDS: CHOLECALCIFEROL 1,000 UNIT TABLET GT SCH (05:40)
[2018-07-26] MEDS: BUDESONIDE 0.5 MG/2 ML NEBU NEB SCH ×2 (07:05→19:06)
[2018-07-26 08:00] VITALS: BP 125/69
[2018-07-26] MEDS: Z GUARD REMEDY PASTE 57 GM TUBE TOP SCH ×2 (09:00→21:04)
[2018-07-26] MEDS: DOCUSATE SODIUM 100 MG/10 ML LIQUID UDC GT SCH (09:00)
[2018-07-26] MEDS: COD LIVER OIL/ZINC OXIDE OINT 113 GM TUBE TP SCH ×2 (09:00→21:04)
[2018-07-26] MEDS: CALCIUM CARBONATE 500 MG TABLET GT SCH ×2 (09:00→21:04)
[2018-07-26] MEDS: HYDROGEN PEROXIDE 3% 118 ML BOTTLE TP SCH ×2 (09:00→21:04)
[2018-07-26] MEDS: NUTRISOURCE FIBER 4 GM PACKET GT SCH ×2 (09:00→21:04)
--- NOTE | 2018-07-26 12:15 | NUR ---
JO-ANN received patient's annual [facility] Redetermination Form. JO-ANN called patient's sister Dione [phone], was unable to connect with her. JO-ANN left Dione a voicemail message explaining the reason for her call, and asked Dione to call this SW back in order to discuss the completion of the form and the importance of returning it to [facility] by its due date of 08/05/18. JO-ANN awaiting call back from Dione. JO-ANN will follow-up with Dione if JO-ANN does not receive a call back.
[2018-07-26 20:00] VITALS: BP 118/81
[2018-07-26] MEDS: ATORVASTATIN 10 MG TABLET GT SCH (21:04)
[2018-07-26] MEDS: MULTIVIT, IRON, MIN NO. 8, FA TABLET GT SCH (21:04)
[2018-07-27] MEDS: JEVITY 1.2 1000 ML LIQUID GT PRN (01:42)
[2018-07-27] MEDS: IPRATROPIUM BROMIDE 0.5 MG/2.5 ML NEBU NEB SCH ×6 (02:59→22:40)
[2018-07-27] MEDS: ALBUTEROL SULFATE 2.5 MG/3 ML NEBU NEB SCH ×6 (02:59→22:40)
[2018-07-27] MEDS: CHOLECALCIFEROL 1,000 UNIT TABLET GT SCH (05:46)
[2018-07-27] MEDS: BACLOFEN 10 MG TABLET GT SCH ×3 (05:46→21:35)
[2018-07-27] MEDS: BUDESONIDE 0.5 MG/2 ML NEBU NEB SCH ×2 (07:17→20:29)
[2018-07-27 07:27] VITALS: BP 113/61
[2018-07-27] MEDS: DOCUSATE SODIUM 100 MG/10 ML LIQUID UDC GT SCH (09:05)
[2018-07-27] MEDS: NUTRISOURCE FIBER 4 GM PACKET GT SCH ×2 (09:05→21:35)
[2018-07-27] MEDS: HYDROGEN PEROXIDE 3% 118 ML BOTTLE TP SCH ×2 (09:06→21:35)
[2018-07-27] MEDS: Z GUARD REMEDY PASTE 57 GM TUBE TOP SCH ×2 (09:06→21:35)
[2018-07-27] MEDS: CALCIUM CARBONATE 500 MG TABLET GT SCH ×2 (09:06→21:35)
[2018-07-27] MEDS: COD LIVER OIL/ZINC OXIDE OINT 113 GM TUBE TP SCH ×2 (09:06→21:35)
[2018-07-27 20:22] VITALS: BP 126/81
--- NOTE | 2018-07-27 20:45 | NUR ---
Seen and examind by Dorothy Rhodes NP with no orders.
[2018-07-27] MEDS: ATORVASTATIN 10 MG TABLET GT SCH (21:35)
[2018-07-28] MEDS: JEVITY 1.2 1000 ML LIQUID GT PRN (01:11)
[2018-07-28] MEDS: ALBUTEROL SULFATE 2.5 MG/3 ML NEBU NEB SCH ×6 (02:43→23:08)
[2018-07-28] MEDS: IPRATROPIUM BROMIDE 0.5 MG/2.5 ML NEBU NEB SCH ×6 (02:43→23:08)
[2018-07-28] MEDS: BACLOFEN 10 MG TABLET GT SCH ×3 (05:40→21:14)
[2018-07-28] MEDS: CHOLECALCIFEROL 1,000 UNIT TABLET GT SCH (05:40)
[2018-07-28] MEDS: BUDESONIDE 0.5 MG/2 ML NEBU NEB SCH ×2 (07:00→20:13)
[2018-07-28 08:00] VITALS: BP 128/77
[2018-07-28] MEDS: DOCUSATE SODIUM 100 MG/10 ML LIQUID UDC GT SCH (09:04)
[2018-07-28] MEDS: Z GUARD REMEDY PASTE 57 GM TUBE TOP SCH ×2 (09:05→21:14)
[2018-07-28] MEDS: CALCIUM CARBONATE 500 MG TABLET GT SCH ×2 (09:05→21:14)
[2018-07-28] MEDS: NUTRISOURCE FIBER 4 GM PACKET GT SCH ×2 (09:05→21:14)
[2018-07-28] MEDS: HYDROGEN PEROXIDE 3% 118 ML BOTTLE TP SCH ×2 (09:05→21:14)
[2018-07-28] MEDS: COD LIVER OIL/ZINC OXIDE OINT 113 GM TUBE TP SCH ×2 (09:05→21:14)
[2018-07-28 20:25] VITALS: BP 100/65
[2018-07-28] MEDS: ATORVASTATIN 10 MG TABLET GT SCH (21:14)
[2018-07-28] MEDS: MULTIVIT, IRON, MIN NO. 8, FA TABLET GT SCH (21:14)
[2018-07-29] MEDS: JEVITY 1.2 1000 ML LIQUID GT PRN (02:20)
[2018-07-29] MEDS: ALBUTEROL SULFATE 2.5 MG/3 ML NEBU NEB SCH ×6 (03:12→22:58)
[2018-07-29] MEDS: IPRATROPIUM BROMIDE 0.5 MG/2.5 ML NEBU NEB SCH ×6 (03:12→22:58)
[2018-07-29] MEDS: CHOLECALCIFEROL 1,000 UNIT TABLET GT SCH (06:43)
[2018-07-29] MEDS: BACLOFEN 10 MG TABLET GT SCH ×3 (06:43→21:57)
[2018-07-29] MEDS: BUDESONIDE 0.5 MG/2 ML NEBU NEB SCH ×2 (07:05→19:20)
[2018-07-29 08:00] VITALS: BP 112/55
[2018-07-29] MEDS: COD LIVER OIL/ZINC OXIDE OINT 113 GM TUBE TP SCH ×2 (09:38→21:57)
[2018-07-29] MEDS: CALCIUM CARBONATE 500 MG TABLET GT SCH ×2 (09:38→21:57)
[2018-07-29] MEDS: NUTRISOURCE FIBER 4 GM PACKET GT SCH ×2 (09:38→21:57)
[2018-07-29] MEDS: DOCUSATE SODIUM 100 MG/10 ML LIQUID UDC GT SCH (09:38)
[2018-07-29] MEDS: Z GUARD REMEDY PASTE 57 GM TUBE TOP SCH ×2 (09:38→21:57)
[2018-07-29] MEDS: HYDROGEN PEROXIDE 3% 118 ML BOTTLE TP SCH ×2 (09:39→21:57)
--- NOTE | 2018-07-29 12:29 | NUR ---
JO-ANN called patient's sister Dione [phone] in response to a voicemail Dione had left this this morning. JO-ANN informed Dione that SW had received patient's annual [facility] Redetermination form, and that it needed to be completed/signed by her and mailed to [facility]. Dione was in agreement. JO-ANN stated she will mail the packet/form to Dione today, and informed Dione that there will be a return envelope in the packet for her to mail the completed/signed form directly to [facility]. Dione agreed.
--- NOTE | 2018-07-29 13:52 | NUR ---
JO-ANN mailed patient's Annual [facility] Redetermination form packet to patient's sister Benita, with return instructions for Dione to return completed/signed form to [facility]. The packet was mailed to: Dione Garcia [address], [place] [address] Copies of mailed packet filed in patient's file in JO-ANN's office.
--- NOTE | 2018-07-29 13:57 | NUR ---
Patient seen today by Dr. Macario for her annual dental exam. See dental notes for details.
--- NOTE | 2018-07-29 15:46 | NUR ---
PT. WAS SEEN BY GARETH CARREON
[2018-07-29 21:33] VITALS: BP 128/62
[2018-07-29] MEDS: ATORVASTATIN 10 MG TABLET GT SCH (21:57)
[2018-07-30] MEDS: JEVITY 1.2 1000 ML LIQUID GT PRN ×2 (02:13→21:44)
[2018-07-30] MEDS: ALBUTEROL SULFATE 2.5 MG/3 ML NEBU NEB SCH ×6 (03:10→23:19)
[2018-07-30] MEDS: IPRATROPIUM BROMIDE 0.5 MG/2.5 ML NEBU NEB SCH ×6 (03:10→23:18)
[2018-07-30] MEDS: BACLOFEN 10 MG TABLET GT SCH ×3 (05:34→21:41)
[2018-07-30] MEDS: CHOLECALCIFEROL 1,000 UNIT TABLET GT SCH (05:34)
[2018-07-30 08:00] VITALS: BP 126/69
[2018-07-30] MEDS: BUDESONIDE 0.5 MG/2 ML NEBU NEB SCH ×2 (08:30→19:30)
[2018-07-30] MEDS: HYDROGEN PEROXIDE 3% 118 ML BOTTLE TP SCH ×2 (09:00→21:41)
[2018-07-30] MEDS: NUTRISOURCE FIBER 4 GM PACKET GT SCH ×2 (09:00→21:40)
[2018-07-30] MEDS: CALCIUM CARBONATE 500 MG TABLET GT SCH ×2 (09:00→21:40)
[2018-07-30] MEDS: COD LIVER OIL/ZINC OXIDE OINT 113 GM TUBE TP SCH ×2 (09:00→21:41)
[2018-07-30] MEDS: Z GUARD REMEDY PASTE 57 GM TUBE TOP SCH ×2 (09:00→21:40)
[2018-07-30] MEDS: DOCUSATE SODIUM 100 MG/10 ML LIQUID UDC GT SCH (09:00)
--- NOTE | 2018-07-30 15:06 | NUR ---
INTERDISCIPLINARY PLAN OF CARE CONFERENCE was held today. Patient's family was unable to attend the meeting. Dr. Underwood and the Interdisciplinary Team reviewed the current plan of care in detail. RN reported on patient's medical condition. No major changes were reported; see RN IDT conference notes. See also all other disciplines IDT notes and physician's progress notes for additional details.
--- NOTE | 2018-07-30 15:21 | NUR ---
Pharmacy Update from today's 07/30/18 IDT Meeting: VS: Temp 97.8 BP 112/58 HR 87 LABS: (from 05/08/18, no new labs) Wbc 4.6H/H 14.1/40.8Plt 169 (from 02/06/18) Na 140K 4.4Cl 103CO2 27BUN/SCr 19/0.7 BS 98Ca 9.1 MEDICATION USE REVIEWED: > Pt not on any anti-psych or anti-seizure medications > PRN MED USAGE: (Nov) Tylenol for pain used x 0 Tylenol for temp used x 0 Bisacodyl PRN x 2 NEW ORDERS NOTED: > NA Pt was reviewed and discussed in depth, no medication concerns or issues reported at this time, no further recs from rx at this time. Will continue to follow
[2018-07-30 20:18] VITALS: BP 134/92
[2018-07-30] MEDS: MULTIVIT, IRON, MIN NO. 8, FA TABLET GT SCH (21:40)
[2018-07-30] MEDS: ATORVASTATIN 10 MG TABLET GT SCH (21:40)
[2018-07-31] MEDS: IPRATROPIUM BROMIDE 0.5 MG/2.5 ML NEBU NEB SCH ×6 (03:51→22:31)
[2018-07-31] MEDS: ALBUTEROL SULFATE 2.5 MG/3 ML NEBU NEB SCH ×6 (03:51→22:31)
[2018-07-31] MEDS: BACLOFEN 10 MG TABLET GT SCH ×3 (06:01→21:31)
[2018-07-31] MEDS: CHOLECALCIFEROL 1,000 UNIT TABLET GT SCH (06:01)
[2018-07-31] MEDS: BUDESONIDE 0.5 MG/2 ML NEBU NEB SCH ×2 (07:05→20:00)
[2018-07-31 08:00] VITALS: BP 117/74
[2018-07-31] MEDS: Z GUARD REMEDY PASTE 57 GM TUBE TOP SCH ×2 (08:49→21:30)
[2018-07-31] MEDS: HYDROGEN PEROXIDE 3% 118 ML BOTTLE TP SCH ×2 (08:49→21:31)
[2018-07-31] MEDS: DOCUSATE SODIUM 100 MG/10 ML LIQUID UDC GT SCH (08:49)
[2018-07-31] MEDS: NUTRISOURCE FIBER 4 GM PACKET GT SCH ×2 (08:49→21:30)
[2018-07-31] MEDS: COD LIVER OIL/ZINC OXIDE OINT 113 GM TUBE TP SCH ×2 (08:49→21:31)
[2018-07-31] MEDS: CALCIUM CARBONATE 500 MG TABLET GT SCH ×2 (08:49→21:30)
--- NOTE | 2018-07-31 13:30 | NUR ---
Seen and examined by Myrtle Shea with no new orders noted.
[2018-07-31 20:00] VITALS: BP 109/67
[2018-07-31] MEDS: ATORVASTATIN 10 MG TABLET GT SCH (21:30)
[2018-07-31] MEDS: JEVITY 1.2 1000 ML LIQUID GT PRN (21:32)
[2018-08-01] MEDS: IPRATROPIUM BROMIDE 0.5 MG/2.5 ML NEBU NEB SCH ×6 (03:30→22:30)
[2018-08-01] MEDS: ALBUTEROL SULFATE 2.5 MG/3 ML NEBU NEB SCH ×6 (03:30→22:30)
[2018-08-01] MEDS: CHOLECALCIFEROL 1,000 UNIT TABLET GT SCH (05:55)
[2018-08-01] MEDS: BACLOFEN 10 MG TABLET GT SCH ×3 (05:55→21:53)
[2018-08-01] MEDS: BUDESONIDE 0.5 MG/2 ML NEBU NEB SCH ×2 (07:46→20:11)
[2018-08-01 08:00] VITALS: BP 117/74
[2018-08-01] MEDS: CALCIUM CARBONATE 500 MG TABLET GT SCH ×2 (08:03→21:52)
[2018-08-01] MEDS: NUTRISOURCE FIBER 4 GM PACKET GT SCH ×2 (08:03→21:52)
[2018-08-01] MEDS: COD LIVER OIL/ZINC OXIDE OINT 113 GM TUBE TP SCH ×2 (08:03→21:53)
[2018-08-01] MEDS: HYDROGEN PEROXIDE 3% 118 ML BOTTLE TP SCH ×2 (08:03→21:53)
[2018-08-01] MEDS: Z GUARD REMEDY PASTE 57 GM TUBE TOP SCH ×2 (08:03→21:53)
[2018-08-01] MEDS: DOCUSATE SODIUM 100 MG/10 ML LIQUID UDC GT SCH (08:03)
[2018-08-01] MEDS: JEVITY 1.2 1000 ML LIQUID GT PRN (18:00)
[2018-08-01 20:31] VITALS: BP 118/72
[2018-08-01] MEDS: ATORVASTATIN 10 MG TABLET GT SCH (21:52)
[2018-08-01] MEDS: MULTIVIT, IRON, MIN NO. 8, FA TABLET GT SCH (21:53)
[2018-08-02] MEDS: IPRATROPIUM BROMIDE 0.5 MG/2.5 ML NEBU NEB SCH ×6 (03:14→23:41)
[2018-08-02] MEDS: ALBUTEROL SULFATE 2.5 MG/3 ML NEBU NEB SCH ×6 (03:14→23:41)
[2018-08-02] MEDS: CHOLECALCIFEROL 1,000 UNIT TABLET GT SCH (05:49)
[2018-08-02] MEDS: BACLOFEN 10 MG TABLET GT SCH ×3 (05:49→22:33)
[2018-08-02] MEDS: BUDESONIDE 0.5 MG/2 ML NEBU NEB SCH ×2 (07:34→21:06)
[2018-08-02 08:00] VITALS: BP 119/69
[2018-08-02] MEDS: CALCIUM CARBONATE 500 MG TABLET GT SCH ×2 (08:32→20:53)
[2018-08-02] MEDS: NUTRISOURCE FIBER 4 GM PACKET GT SCH ×2 (08:32→20:44)
[2018-08-02] MEDS: DOCUSATE SODIUM 100 MG/10 ML LIQUID UDC GT SCH (08:32)
[2018-08-02] MEDS: Z GUARD REMEDY PASTE 57 GM TUBE TOP SCH ×2 (08:33→20:44)
[2018-08-02] MEDS: HYDROGEN PEROXIDE 3% 118 ML BOTTLE TP SCH ×2 (08:33→20:44)
[2018-08-02] MEDS: COD LIVER OIL/ZINC OXIDE OINT 113 GM TUBE TP SCH ×2 (08:33→20:44)
[2018-08-02] MEDS: ATORVASTATIN 10 MG TABLET GT SCH (20:44)
[2018-08-02 20:58] VITALS: BP 122/82
[2018-08-03] MEDS: IPRATROPIUM BROMIDE 0.5 MG/2.5 ML NEBU NEB SCH ×6 (03:46→22:30)
[2018-08-03] MEDS: ALBUTEROL SULFATE 2.5 MG/3 ML NEBU NEB SCH ×6 (03:46→22:30)
[2018-08-03] MEDS: CHOLECALCIFEROL 1,000 UNIT TABLET GT SCH (05:42)
[2018-08-03] MEDS: BACLOFEN 10 MG TABLET GT SCH ×3 (05:42→21:52)
[2018-08-03] MEDS: JEVITY 1.2 1000 ML LIQUID GT PRN ×2 (05:42→22:36)
[2018-08-03] MEDS: BUDESONIDE 0.5 MG/2 ML NEBU NEB SCH ×2 (07:18→19:25)
[2018-08-03] MEDS: DOCUSATE SODIUM 100 MG/10 ML LIQUID UDC GT SCH (09:09)
[2018-08-03] MEDS: CALCIUM CARBONATE 500 MG TABLET GT SCH ×2 (09:09→21:52)
[2018-08-03] MEDS: NUTRISOURCE FIBER 4 GM PACKET GT SCH ×2 (09:09→21:52)
[2018-08-03] MEDS: HYDROGEN PEROXIDE 3% 118 ML BOTTLE TP SCH ×2 (09:10→21:52)
[2018-08-03] MEDS: COD LIVER OIL/ZINC OXIDE OINT 113 GM TUBE TP SCH (09:10)
[2018-08-03] MEDS: Z GUARD REMEDY PASTE 57 GM TUBE TOP SCH ×2 (09:10→21:52)
[2018-08-03 11:23] VITALS: BP 130/87
[2018-08-03 20:24] VITALS: BP 129/83
[2018-08-03] MEDS: ATORVASTATIN 10 MG TABLET GT SCH (21:52)
[2018-08-03] MEDS: MULTIVIT, IRON, MIN NO. 8, FA TABLET GT SCH (21:52)
[2018-08-04] MEDS: ALBUTEROL SULFATE 2.5 MG/3 ML NEBU NEB SCH ×6 (02:30→23:57)
[2018-08-04] MEDS: IPRATROPIUM BROMIDE 0.5 MG/2.5 ML NEBU NEB SCH ×6 (02:30→23:57)
[2018-08-04] MEDS: BACLOFEN 10 MG TABLET GT SCH ×3 (06:01→22:01)
[2018-08-04] MEDS: CHOLECALCIFEROL 1,000 UNIT TABLET GT SCH (06:01)
[2018-08-04] MEDS: BUDESONIDE 0.5 MG/2 ML NEBU NEB SCH ×2 (07:48→20:06)
[2018-08-04] MEDS: HYDROGEN PEROXIDE 3% 118 ML BOTTLE TP SCH ×2 (08:46→21:00)
[2018-08-04] MEDS: DOCUSATE SODIUM 100 MG/10 ML LIQUID UDC GT SCH (08:46)
[2018-08-04] MEDS: CALCIUM CARBONATE 500 MG TABLET GT SCH ×2 (08:46→21:00)
[2018-08-04] MEDS: NUTRISOURCE FIBER 4 GM PACKET GT SCH ×2 (08:46→21:00)
[2018-08-04] MEDS: Z GUARD REMEDY PASTE 57 GM TUBE TOP SCH ×2 (08:46→21:00)
[2018-08-04 11:29] VITALS: BP 94/59
--- NOTE | 2018-08-04 14:00 | NUR ---
Seen and examined by ANN MARIE De La Cruz,no new orders noted.
[2018-08-04] MEDS: ATORVASTATIN 10 MG TABLET GT SCH (21:00)
[2018-08-04 21:04] VITALS: BP 117/70
[2018-08-04] MEDS: JEVITY 1.2 1000 ML LIQUID GT PRN (23:07)
[2018-08-05] MEDS: IPRATROPIUM BROMIDE 0.5 MG/2.5 ML NEBU NEB SCH ×6 (03:37→22:36)
[2018-08-05] MEDS: ALBUTEROL SULFATE 2.5 MG/3 ML NEBU NEB SCH ×6 (03:37→22:36)
[2018-08-05] MEDS: BACLOFEN 10 MG TABLET GT SCH ×3 (06:01→22:05)
[2018-08-05] MEDS: CHOLECALCIFEROL 1,000 UNIT TABLET GT SCH (06:01)
[2018-08-05] MEDS: BUDESONIDE 0.5 MG/2 ML NEBU NEB SCH ×2 (06:53→20:07)
[2018-08-05 08:00] VITALS: BP 118/64
[2018-08-05] MEDS: DOCUSATE SODIUM 100 MG/10 ML LIQUID UDC GT SCH (09:00)
[2018-08-05] MEDS: CALCIUM CARBONATE 500 MG TABLET GT SCH ×2 (09:00→21:00)
[2018-08-05] MEDS: NUTRISOURCE FIBER 4 GM PACKET GT SCH ×2 (09:00→21:00)
[2018-08-05] MEDS: Z GUARD REMEDY PASTE 57 GM TUBE TOP SCH ×2 (09:00→21:00)
[2018-08-05] MEDS: HYDROGEN PEROXIDE 3% 118 ML BOTTLE TP SCH ×2 (09:00→21:00)
--- NOTE | 2018-08-05 10:56 | NUR ---
JO-ANN received a call from patient's sister Dione Garcia [phone] stating that she had received and completed patient's Annual Redetermination for [facility] Beneficiaries form packet. Dione emailed a copy of it to this SW, which JO-ANN filed in patient's file in SW's office. Dione then stated she would be mailing the original to [facility] in the enclosed envelope. JO-ANN agreed.
--- NOTE | 2018-08-05 14:00 | NUR ---
SEEN BY TABITHA HALL WITH NEW ORDER NOTED AND CARRIED OUT.
--- NOTE | 2018-08-05 14:10 | NUR ---
Patient noted with Left ear posterior fungal infection. Notified TABITHA Tang with new orders, noted and carried out.
[2018-08-05 19:54] VITALS: BP 139/73
[2018-08-05] MEDS: ATORVASTATIN 10 MG TABLET GT SCH (21:00)
[2018-08-05] MEDS: CLOTRIMAZOLE 1% CREAM 30 GM TUBE TP SCH (21:00)
[2018-08-05] MEDS: MULTIVIT, IRON, MIN NO. 8, FA TABLET GT SCH (21:00)
[2018-08-06] MEDS: JEVITY 1.2 1000 ML LIQUID GT PRN ×2 (02:08→23:50)
[2018-08-06] MEDS: ALBUTEROL SULFATE 2.5 MG/3 ML NEBU NEB SCH ×6 (03:45→23:58)
[2018-08-06] MEDS: IPRATROPIUM BROMIDE 0.5 MG/2.5 ML NEBU NEB SCH ×6 (03:45→23:58)
[2018-08-06] MEDS: CHOLECALCIFEROL 1,000 UNIT TABLET GT SCH (05:51)
[2018-08-06] MEDS: BACLOFEN 10 MG TABLET GT SCH ×3 (05:51→21:19)
[2018-08-06] MEDS: BUDESONIDE 0.5 MG/2 ML NEBU NEB SCH ×2 (06:58→19:10)
[2018-08-06 08:00] VITALS: BP 104/98
[2018-08-06] MEDS: Z GUARD REMEDY PASTE 57 GM TUBE TOP SCH ×2 (09:00→21:19)
[2018-08-06] MEDS: HYDROGEN PEROXIDE 3% 118 ML BOTTLE TP SCH ×2 (09:00→21:19)
[2018-08-06] MEDS: DOCUSATE SODIUM 100 MG/10 ML LIQUID UDC GT SCH (09:00)
[2018-08-06] MEDS: CLOTRIMAZOLE 1% CREAM 30 GM TUBE TP SCH ×2 (09:00→21:19)
[2018-08-06] MEDS: NUTRISOURCE FIBER 4 GM PACKET GT SCH ×2 (09:00→21:18)
[2018-08-06] MEDS: CALCIUM CARBONATE 500 MG TABLET GT SCH ×2 (09:00→21:19)
--- NOTE | 2018-08-06 12:00 | NUR ---
Seen and examined by ANN MARIE Young,no new orders noted.
[2018-08-06 20:24] VITALS: BP 106/76
[2018-08-06] MEDS: ATORVASTATIN 10 MG TABLET GT SCH (21:18)
[2018-08-07] MEDS: IPRATROPIUM BROMIDE 0.5 MG/2.5 ML NEBU NEB SCH ×5 (03:30→19:54)
[2018-08-07] MEDS: ALBUTEROL SULFATE 2.5 MG/3 ML NEBU NEB SCH ×5 (03:31→19:54)
[2018-08-07] MEDS: CHOLECALCIFEROL 1,000 UNIT TABLET GT SCH (06:14)
[2018-08-07] MEDS: BACLOFEN 10 MG TABLET GT SCH ×3 (06:14→21:08)
[2018-08-07] MEDS: BISACODYL 10 MG SUPP.RECT RC PRN (06:30)
[2018-08-07] MEDS: BUDESONIDE 0.5 MG/2 ML NEBU NEB SCH ×2 (07:30→20:05)
[2018-08-07 08:00] VITALS: BP 136/78
[2018-08-07] MEDS: DOCUSATE SODIUM 100 MG/10 ML LIQUID UDC GT SCH (09:00)
[2018-08-07] MEDS: CLOTRIMAZOLE 1% CREAM 30 GM TUBE TP SCH ×2 (09:00→21:08)
[2018-08-07] MEDS: CALCIUM CARBONATE 500 MG TABLET GT SCH ×2 (09:00→21:07)
[2018-08-07] MEDS: HYDROGEN PEROXIDE 3% 118 ML BOTTLE TP SCH ×2 (09:00→21:07)
[2018-08-07] MEDS: Z GUARD REMEDY PASTE 57 GM TUBE TOP SCH ×2 (09:00→21:07)
[2018-08-07] MEDS: NUTRISOURCE FIBER 4 GM PACKET GT SCH ×2 (09:00→21:06)
--- NOTE | 2018-08-07 14:00 | NUR ---
Seen and examined by Myrtle LU,no new orders.
[2018-08-07 20:10] VITALS: BP 125/73
[2018-08-07] MEDS: ATORVASTATIN 10 MG TABLET GT SCH (21:06)
[2018-08-07] MEDS: MULTIVIT, IRON, MIN NO. 8, FA TABLET GT SCH (21:07)
[2018-08-08] MEDS: JEVITY 1.2 1000 ML LIQUID GT PRN
[2018-08-08] MEDS: ALBUTEROL SULFATE 2.5 MG/3 ML NEBU NEB SCH ×7 (00:10→23:44)
[2018-08-08] MEDS: IPRATROPIUM BROMIDE 0.5 MG/2.5 ML NEBU NEB SCH ×7 (00:10→23:44)
[2018-08-08] MEDS: BACLOFEN 10 MG TABLET GT SCH ×3 (06:11→22:36)
[2018-08-08] MEDS: CHOLECALCIFEROL 1,000 UNIT TABLET GT SCH (06:11)
[2018-08-08 08:00] VITALS: BP 122/69
[2018-08-08] MEDS: BUDESONIDE 0.5 MG/2 ML NEBU NEB SCH ×2 (08:05→20:19)
[2018-08-08] MEDS: NUTRISOURCE FIBER 4 GM PACKET GT SCH ×2 (09:55→21:00)
[2018-08-08] MEDS: HYDROGEN PEROXIDE 3% 118 ML BOTTLE TP SCH ×2 (09:55→21:00)
[2018-08-08] MEDS: CALCIUM CARBONATE 500 MG TABLET GT SCH ×2 (09:55→21:00)
[2018-08-08] MEDS: CLOTRIMAZOLE 1% CREAM 30 GM TUBE TP SCH ×2 (09:55→21:00)
[2018-08-08] MEDS: DOCUSATE SODIUM 100 MG/10 ML LIQUID UDC GT SCH (09:55)
[2018-08-08] MEDS: Z GUARD REMEDY PASTE 57 GM TUBE TOP SCH ×2 (09:55→21:00)
[2018-08-08] MEDS: ATORVASTATIN 10 MG TABLET GT SCH (21:00)
[2018-08-08 22:37] VITALS: BP 108/78
[2018-08-09] MEDS: JEVITY 1.2 1000 ML LIQUID GT PRN ×2 (00:25→06:23)
[2018-08-09] MEDS: IPRATROPIUM BROMIDE 0.5 MG/2.5 ML NEBU NEB SCH ×6 (03:52→22:30)
[2018-08-09] MEDS: ALBUTEROL SULFATE 2.5 MG/3 ML NEBU NEB SCH ×6 (03:53→22:30)
[2018-08-09] MEDS: BACLOFEN 10 MG TABLET GT SCH ×3 (06:23→21:32)
[2018-08-09] MEDS: CHOLECALCIFEROL 1,000 UNIT TABLET GT SCH (06:23)
[2018-08-09] MEDS: BUDESONIDE 0.5 MG/2 ML NEBU NEB SCH ×2 (07:46→19:15)
[2018-08-09 08:00] VITALS: BP_SYST 104; BP_SYST 120; BP_DIAS 51; BP_DIAS 80
[2018-08-09] MEDS: NUTRISOURCE FIBER 4 GM PACKET GT SCH ×2 (08:52→21:32)
[2018-08-09] MEDS: Z GUARD REMEDY PASTE 57 GM TUBE TOP SCH ×2 (08:52→21:32)
[2018-08-09] MEDS: HYDROGEN PEROXIDE 3% 118 ML BOTTLE TP SCH ×2 (08:52→21:32)
[2018-08-09] MEDS: CALCIUM CARBONATE 500 MG TABLET GT SCH ×2 (08:52→21:32)
[2018-08-09] MEDS: CLOTRIMAZOLE 1% CREAM 30 GM TUBE TP SCH ×2 (08:52→21:32)
[2018-08-09] MEDS: DOCUSATE SODIUM 100 MG/10 ML LIQUID UDC GT SCH (08:52)
[2018-08-09] MEDS: MULTIVIT, IRON, MIN NO. 8, FA TABLET GT SCH (21:32)
[2018-08-09] MEDS: ATORVASTATIN 10 MG TABLET GT SCH (21:32)
[2018-08-09 22:59] VITALS: BP 131/70
[2018-08-10] MEDS: JEVITY 1.2 1000 ML LIQUID GT PRN (00:51)
[2018-08-10] MEDS: IPRATROPIUM BROMIDE 0.5 MG/2.5 ML NEBU NEB SCH ×6 (02:30→23:00)
[2018-08-10] MEDS: ALBUTEROL SULFATE 2.5 MG/3 ML NEBU NEB SCH ×6 (02:30→23:00)
[2018-08-10] MEDS: CHOLECALCIFEROL 1,000 UNIT TABLET GT SCH (05:59)
[2018-08-10] MEDS: BACLOFEN 10 MG TABLET GT SCH ×3 (05:59→21:13)
[2018-08-10] MEDS: BUDESONIDE 0.5 MG/2 ML NEBU NEB SCH ×2 (07:15→20:00)
[2018-08-10] MEDS: Z GUARD REMEDY PASTE 57 GM TUBE TOP SCH ×2 (09:51→21:10)
[2018-08-10] MEDS: DOCUSATE SODIUM 100 MG/10 ML LIQUID UDC GT SCH (09:51)
[2018-08-10] MEDS: HYDROGEN PEROXIDE 3% 118 ML BOTTLE TP SCH ×2 (09:51→21:10)
[2018-08-10] MEDS: CALCIUM CARBONATE 500 MG TABLET GT SCH ×2 (09:51→21:10)
[2018-08-10] MEDS: NUTRISOURCE FIBER 4 GM PACKET GT SCH ×2 (09:51→21:10)
[2018-08-10] MEDS: CLOTRIMAZOLE 1% CREAM 30 GM TUBE TP SCH ×2 (09:52→21:11)
[2018-08-10 10:56] VITALS: BP 90/50
[2018-08-10] MEDS: ATORVASTATIN 10 MG TABLET GT SCH (21:10)
[2018-08-10 22:00] VITALS: BP 113/75
--- NOTE | 2018-08-10 22:09 | NUR ---
Seen and examined by Dorothy Rhodes NP with no new order.
[2018-08-11] MEDS: JEVITY 1.2 1000 ML LIQUID GT PRN (00:52)
[2018-08-11] MEDS: ALBUTEROL SULFATE 2.5 MG/3 ML NEBU NEB SCH ×6 (03:01→22:59)
[2018-08-11] MEDS: IPRATROPIUM BROMIDE 0.5 MG/2.5 ML NEBU NEB SCH ×6 (03:01→22:59)
[2018-08-11] MEDS: BACLOFEN 10 MG TABLET GT SCH ×3 (06:24→21:44)
[2018-08-11] MEDS: CHOLECALCIFEROL 1,000 UNIT TABLET GT SCH (06:24)
[2018-08-11] MEDS: BUDESONIDE 0.5 MG/2 ML NEBU NEB SCH ×2 (07:06→20:19)
[2018-08-11] MEDS: NUTRISOURCE FIBER 4 GM PACKET GT SCH ×2 (08:27→21:44)
[2018-08-11] MEDS: DOCUSATE SODIUM 100 MG/10 ML LIQUID UDC GT SCH (08:27)
[2018-08-11] MEDS: Z GUARD REMEDY PASTE 57 GM TUBE TOP SCH ×2 (08:27→21:44)
[2018-08-11] MEDS: HYDROGEN PEROXIDE 3% 118 ML BOTTLE TP SCH ×2 (08:27→21:44)
[2018-08-11] MEDS: CALCIUM CARBONATE 500 MG TABLET GT SCH ×2 (08:27→21:44)
[2018-08-11] MEDS: CLOTRIMAZOLE 1% CREAM 30 GM TUBE TP SCH ×2 (08:28→21:44)
--- NOTE | 2018-08-11 11:02 | NUR ---
MESSAGE WAS LEFT FOR RESP. [employer]XA STOVER RE: PPD SKIN TEST.
[2018-08-11 11:24] VITALS: BP 131/75
--- NOTE | 2018-08-11 13:25 | NUR ---
GARETH STOVER CALLED BACK AND O.K PPT SKIN TEST.
[2018-08-11] MEDS: ATORVASTATIN 10 MG TABLET GT SCH (21:44)
[2018-08-11] MEDS: MULTIVIT, IRON, MIN NO. 8, FA TABLET GT SCH (21:44)
[2018-08-11 23:19] VITALS: BP 100/62
[2018-08-12] MEDS: JEVITY 1.2 1000 ML LIQUID GT PRN (02:46)
[2018-08-12] MEDS: IPRATROPIUM BROMIDE 0.5 MG/2.5 ML NEBU NEB SCH ×6 (02:59→22:59)
[2018-08-12] MEDS: ALBUTEROL SULFATE 2.5 MG/3 ML NEBU NEB SCH ×6 (02:59→22:59)
[2018-08-12] MEDS: BACLOFEN 10 MG TABLET GT SCH ×3 (06:27→21:55)
[2018-08-12] MEDS: CHOLECALCIFEROL 1,000 UNIT TABLET GT SCH (06:27)
[2018-08-12] MEDS: BUDESONIDE 0.5 MG/2 ML NEBU NEB SCH ×2 (07:02→20:21)
[2018-08-12 08:00] VITALS: BP 112/60
[2018-08-12] MEDS: CALCIUM CARBONATE 500 MG TABLET GT SCH ×2 (09:15→21:54)
[2018-08-12] MEDS: CLOTRIMAZOLE 1% CREAM 30 GM TUBE TP SCH ×2 (09:15→21:55)
[2018-08-12] MEDS: DOCUSATE SODIUM 100 MG/10 ML LIQUID UDC GT SCH (09:15)
[2018-08-12] MEDS: Z GUARD REMEDY PASTE 57 GM TUBE TOP SCH ×2 (09:15→21:54)
[2018-08-12] MEDS: HYDROGEN PEROXIDE 3% 118 ML BOTTLE TP SCH ×2 (09:15→21:54)
[2018-08-12] MEDS: NUTRISOURCE FIBER 4 GM PACKET GT SCH ×2 (09:15→21:54)
--- NOTE | 2018-08-12 10:30 | NUR ---
SEEN BY HALINA JETER.
--- NOTE | 2018-08-12 13:30 | NUR ---
SEEN BY GARETH JETER.
[2018-08-12 20:00] VITALS: BP 91/52
[2018-08-12] MEDS: ATORVASTATIN 10 MG TABLET GT SCH (21:54)
[2018-08-13] MEDS: JEVITY 1.2 1000 ML LIQUID GT PRN (01:44)
[2018-08-13] MEDS: IPRATROPIUM BROMIDE 0.5 MG/2.5 ML NEBU NEB SCH ×5 (02:58→19:16)
[2018-08-13] MEDS: ALBUTEROL SULFATE 2.5 MG/3 ML NEBU NEB SCH ×5 (02:58→19:17)
[2018-08-13] MEDS: CHOLECALCIFEROL 1,000 UNIT TABLET GT SCH (06:08)
[2018-08-13] MEDS: BACLOFEN 10 MG TABLET GT SCH ×3 (06:08→21:22)
[2018-08-13] MEDS: BUDESONIDE 0.5 MG/2 ML NEBU NEB SCH ×2 (07:11→19:17)
[2018-08-13 08:00] VITALS: BP 112/68
[2018-08-13] MEDS: NUTRISOURCE FIBER 4 GM PACKET GT SCH ×2 (09:00→21:23)
[2018-08-13] MEDS: CLOTRIMAZOLE 1% CREAM 30 GM TUBE TP SCH ×2 (09:00→21:24)
[2018-08-13] MEDS: Z GUARD REMEDY PASTE 57 GM TUBE TOP SCH ×2 (09:00→21:24)
[2018-08-13] MEDS: HYDROGEN PEROXIDE 3% 118 ML BOTTLE TP SCH ×2 (09:00→21:24)
[2018-08-13] MEDS: CALCIUM CARBONATE 500 MG TABLET GT SCH ×2 (09:00→21:23)
[2018-08-13] MEDS: DOCUSATE SODIUM 100 MG/10 ML LIQUID UDC GT SCH (09:00)
[2018-08-13 20:00] VITALS: BP 114/94
[2018-08-13] MEDS: ATORVASTATIN 10 MG TABLET GT SCH (21:22)
[2018-08-13] MEDS: MULTIVIT, IRON, MIN NO. 8, FA TABLET GT SCH (21:24)
[2018-08-14] MEDS: ALBUTEROL SULFATE 2.5 MG/3 ML NEBU NEB SCH ×7 (00:02→22:30)
[2018-08-14] MEDS: IPRATROPIUM BROMIDE 0.5 MG/2.5 ML NEBU NEB SCH ×7 (00:02→22:30)
[2018-08-14] MEDS: CHOLECALCIFEROL 1,000 UNIT TABLET GT SCH (06:48)
[2018-08-14] MEDS: BACLOFEN 10 MG TABLET GT SCH ×3 (06:48→22:01)
[2018-08-14] MEDS: BUDESONIDE 0.5 MG/2 ML NEBU NEB SCH ×2 (07:04→19:37)
[2018-08-14 08:00] VITALS: BP 111/73
[2018-08-14] MEDS: DOCUSATE SODIUM 100 MG/10 ML LIQUID UDC GT SCH (09:00)
[2018-08-14] MEDS: CLOTRIMAZOLE 1% CREAM 30 GM TUBE TP SCH ×2 (09:00→21:20)
[2018-08-14] MEDS: HYDROGEN PEROXIDE 3% 118 ML BOTTLE TP SCH ×2 (09:00→21:19)
[2018-08-14] MEDS: CALCIUM CARBONATE 500 MG TABLET GT SCH ×2 (09:00→21:19)
[2018-08-14] MEDS: NUTRISOURCE FIBER 4 GM PACKET GT SCH ×2 (09:00→21:19)
[2018-08-14] MEDS: Z GUARD REMEDY PASTE 57 GM TUBE TOP SCH ×2 (09:00→21:19)
--- NOTE | 2018-08-14 15:00 | NUR ---
NEW ORDER WAS CARRIED OUT FROM GARETH Goode FOR ANNUAL PPD.
[2018-08-14 20:00] VITALS: BP 120/83
[2018-08-14] MEDS: ATORVASTATIN 10 MG TABLET GT SCH (21:18)
[2018-08-15] MEDS: ALBUTEROL SULFATE 2.5 MG/3 ML NEBU NEB SCH ×6 (02:30→22:30)
[2018-08-15] MEDS: IPRATROPIUM BROMIDE 0.5 MG/2.5 ML NEBU NEB SCH ×6 (02:30→22:30)
[2018-08-15] MEDS: JEVITY 1.2 1000 ML LIQUID GT PRN (03:33)
[2018-08-15] MEDS: CHOLECALCIFEROL 1,000 UNIT TABLET GT SCH (06:09)
[2018-08-15] MEDS: BACLOFEN 10 MG TABLET GT SCH ×3 (06:09→21:05)
[2018-08-15] MEDS: BUDESONIDE 0.5 MG/2 ML NEBU NEB SCH ×2 (07:48→19:05)
[2018-08-15 08:00] VITALS: BP 104/57
[2018-08-15] MEDS ORDERED: TUBERCULIN,PURIF.PROT.DERIV. 5 TU/0.1 ML TEST ID ONE (09:00)
[2018-08-15] MEDS: NUTRISOURCE FIBER 4 GM PACKET GT SCH ×2 (09:23→21:05)
[2018-08-15] MEDS: DOCUSATE SODIUM 100 MG/10 ML LIQUID UDC GT SCH (09:23)
[2018-08-15] MEDS: CALCIUM CARBONATE 500 MG TABLET GT SCH ×2 (09:23→21:05)
[2018-08-15] MEDS: CLOTRIMAZOLE 1% CREAM 30 GM TUBE TP SCH ×2 (09:24→21:05)
[2018-08-15] MEDS: Z GUARD REMEDY PASTE 57 GM TUBE TOP SCH ×2 (09:24→21:05)
[2018-08-15] MEDS: HYDROGEN PEROXIDE 3% 118 ML BOTTLE TP SCH ×2 (09:24→21:05)
[2018-08-15 20:00] VITALS: BP 91/59
[2018-08-15] MEDS: MULTIVIT, IRON, MIN NO. 8, FA TABLET GT SCH (21:05)
[2018-08-15] MEDS: ATORVASTATIN 10 MG TABLET GT SCH (21:05)
[2018-08-16] MEDS: JEVITY 1.2 1000 ML LIQUID GT PRN (01:27)
[2018-08-16] MEDS: BISACODYL 10 MG SUPP.RECT RC PRN (02:06)
[2018-08-16] MEDS: ALBUTEROL SULFATE 2.5 MG/3 ML NEBU NEB SCH ×6 (02:30→23:40)
[2018-08-16] MEDS: IPRATROPIUM BROMIDE 0.5 MG/2.5 ML NEBU NEB SCH ×6 (02:30→23:40)
[2018-08-16] MEDS: CHOLECALCIFEROL 1,000 UNIT TABLET GT SCH (05:46)
[2018-08-16] MEDS: BACLOFEN 10 MG TABLET GT SCH ×3 (05:46→22:01)
[2018-08-16 08:00] VITALS: BP 110/71
[2018-08-16] MEDS: BUDESONIDE 0.5 MG/2 ML NEBU NEB SCH ×2 (08:07→20:47)
[2018-08-16] MEDS: DOCUSATE SODIUM 100 MG/10 ML LIQUID UDC GT SCH (08:09)
[2018-08-16] MEDS: NUTRISOURCE FIBER 4 GM PACKET GT SCH ×2 (08:09→22:00)
[2018-08-16] MEDS: CALCIUM CARBONATE 500 MG TABLET GT SCH ×2 (08:09→22:00)
[2018-08-16] MEDS: CLOTRIMAZOLE 1% CREAM 30 GM TUBE TP SCH ×2 (08:10→22:00)
[2018-08-16] MEDS: Z GUARD REMEDY PASTE 57 GM TUBE TOP SCH ×2 (08:10→22:00)
[2018-08-16] MEDS: HYDROGEN PEROXIDE 3% 118 ML BOTTLE TP SCH ×2 (08:10→22:00)
[2018-08-16] MEDS: ATORVASTATIN 10 MG TABLET GT SCH (22:00)
[2018-08-16 23:16] VITALS: BP 97/51
[2018-08-17] MEDS: ALBUTEROL SULFATE 2.5 MG/3 ML NEBU NEB SCH ×6 (03:30→23:02)
[2018-08-17] MEDS: IPRATROPIUM BROMIDE 0.5 MG/2.5 ML NEBU NEB SCH ×6 (03:30→23:02)
[2018-08-17] MEDS: BACLOFEN 10 MG TABLET GT SCH ×3 (06:22→22:07)
[2018-08-17] MEDS: CHOLECALCIFEROL 1,000 UNIT TABLET GT SCH (07:30)
[2018-08-17] MEDS: BUDESONIDE 0.5 MG/2 ML NEBU NEB SCH ×2 (08:10→18:58)
[2018-08-17] MEDS: DOCUSATE SODIUM 100 MG/10 ML LIQUID UDC GT SCH (09:00)
[2018-08-17] MEDS: NUTRISOURCE FIBER 4 GM PACKET GT SCH ×2 (09:00→20:01)
[2018-08-17] MEDS: CALCIUM CARBONATE 500 MG TABLET GT SCH ×2 (09:00→20:01)
[2018-08-17] MEDS: CLOTRIMAZOLE 1% CREAM 30 GM TUBE TP SCH ×2 (09:00→20:01)
[2018-08-17] MEDS: HYDROGEN PEROXIDE 3% 118 ML BOTTLE TP SCH ×2 (09:00→20:01)
[2018-08-17] MEDS: Z GUARD REMEDY PASTE 57 GM TUBE TOP SCH ×2 (09:00→20:01)
[2018-08-17] MEDS: MULTIVIT, IRON, MIN NO. 8, FA TABLET GT SCH (20:01)
[2018-08-17] MEDS: ATORVASTATIN 10 MG TABLET GT SCH (20:01)
[2018-08-17 22:00] VITALS: BP 120/79
[2018-08-18] MEDS: JEVITY 1.2 1000 ML LIQUID GT PRN (01:49)
[2018-08-18] MEDS: IPRATROPIUM BROMIDE 0.5 MG/2.5 ML NEBU NEB SCH ×6 (03:00→23:03)
[2018-08-18] MEDS: ALBUTEROL SULFATE 2.5 MG/3 ML NEBU NEB SCH ×6 (03:00→23:03)
[2018-08-18] MEDS: BACLOFEN 10 MG TABLET GT SCH ×3 (05:26→22:50)
[2018-08-18] MEDS: CHOLECALCIFEROL 1,000 UNIT TABLET GT SCH (05:54)
[2018-08-18] MEDS: BUDESONIDE 0.5 MG/2 ML NEBU NEB SCH ×2 (07:53→20:10)
[2018-08-18 08:08] VITALS: BP 130/77
[2018-08-18] MEDS: DOCUSATE SODIUM 100 MG/10 ML LIQUID UDC GT SCH (09:00)
[2018-08-18] MEDS: CALCIUM CARBONATE 500 MG TABLET GT SCH ×2 (09:00→21:00)
[2018-08-18] MEDS: NUTRISOURCE FIBER 4 GM PACKET GT SCH ×2 (09:00→21:00)
[2018-08-18] MEDS: CLOTRIMAZOLE 1% CREAM 30 GM TUBE TP SCH ×2 (09:00→21:00)
[2018-08-18] MEDS: HYDROGEN PEROXIDE 3% 118 ML BOTTLE TP SCH ×2 (09:00→21:00)
[2018-08-18] MEDS: Z GUARD REMEDY PASTE 57 GM TUBE TOP SCH ×2 (09:00→21:00)
[2018-08-18] MEDS: ATORVASTATIN 10 MG TABLET GT SCH (21:00)
[2018-08-18 22:00] VITALS: BP 136/86
[2018-08-19] MEDS: JEVITY 1.2 1000 ML LIQUID GT PRN (01:59)
[2018-08-19] MEDS: IPRATROPIUM BROMIDE 0.5 MG/2.5 ML NEBU NEB SCH ×6 (03:03→22:58)
[2018-08-19] MEDS: ALBUTEROL SULFATE 2.5 MG/3 ML NEBU NEB SCH ×6 (03:03→22:58)
[2018-08-19] MEDS: BACLOFEN 10 MG TABLET GT SCH ×3 (06:14→22:08)
[2018-08-19] MEDS: CHOLECALCIFEROL 1,000 UNIT TABLET GT SCH (06:14)
[2018-08-19] MEDS: BUDESONIDE 0.5 MG/2 ML NEBU NEB SCH ×2 (07:07→20:08)
[2018-08-19 08:00] VITALS: BP 101/69
[2018-08-19] MEDS: HYDROGEN PEROXIDE 3% 118 ML BOTTLE TP SCH ×2 (08:00→21:00)
[2018-08-19] MEDS: DOCUSATE SODIUM 100 MG/10 ML LIQUID UDC GT SCH (08:00)
[2018-08-19] MEDS: CALCIUM CARBONATE 500 MG TABLET GT SCH ×2 (08:00→21:00)
[2018-08-19] MEDS: NUTRISOURCE FIBER 4 GM PACKET GT SCH ×2 (08:00→21:00)
[2018-08-19] MEDS: Z GUARD REMEDY PASTE 57 GM TUBE TOP SCH ×2 (08:00→21:00)
[2018-08-19] MEDS: CLOTRIMAZOLE 1% CREAM 30 GM TUBE TP SCH (08:01)
[2018-08-19 20:47] VITALS: BP 118/69
[2018-08-19] MEDS: MULTIVIT, IRON, MIN NO. 8, FA TABLET GT SCH (21:00)
[2018-08-19] MEDS: ATORVASTATIN 10 MG TABLET GT SCH (21:00)
[2018-08-20] MEDS: JEVITY 1.2 1000 ML LIQUID GT PRN (01:30)
[2018-08-20] MEDS: ALBUTEROL SULFATE 2.5 MG/3 ML NEBU NEB SCH ×6 (02:58→23:08)
[2018-08-20] MEDS: IPRATROPIUM BROMIDE 0.5 MG/2.5 ML NEBU NEB SCH ×6 (02:58→23:08)
[2018-08-20] MEDS: CHOLECALCIFEROL 1,000 UNIT TABLET GT SCH (06:44)
[2018-08-20] MEDS: BACLOFEN 10 MG TABLET GT SCH ×3 (06:44→21:51)
[2018-08-20] MEDS: BUDESONIDE 0.5 MG/2 ML NEBU NEB SCH ×2 (07:25→20:08)
[2018-08-20] MEDS: CALCIUM CARBONATE 500 MG TABLET GT SCH ×2 (08:39→21:51)
[2018-08-20] MEDS: NUTRISOURCE FIBER 4 GM PACKET GT SCH ×2 (08:39→21:51)
[2018-08-20] MEDS: Z GUARD REMEDY PASTE 57 GM TUBE TOP SCH ×2 (08:39→21:51)
[2018-08-20] MEDS: DOCUSATE SODIUM 100 MG/10 ML LIQUID UDC GT SCH (08:39)
[2018-08-20] MEDS: HYDROGEN PEROXIDE 3% 118 ML BOTTLE TP SCH ×2 (08:40→21:51)
[2018-08-20 12:14] VITALS: BP 132/80
[2018-08-20 20:26] VITALS: BP 149/98
[2018-08-20] MEDS: ATORVASTATIN 10 MG TABLET GT SCH (21:50)
[2018-08-21] MEDS: JEVITY 1.2 1000 ML LIQUID GT PRN (01:30)
[2018-08-21] MEDS: IPRATROPIUM BROMIDE 0.5 MG/2.5 ML NEBU NEB SCH ×6 (03:08→23:00)
[2018-08-21] MEDS: ALBUTEROL SULFATE 2.5 MG/3 ML NEBU NEB SCH ×6 (03:08→23:00)
[2018-08-21] MEDS: CHOLECALCIFEROL 1,000 UNIT TABLET GT SCH (05:37)
[2018-08-21] MEDS: BACLOFEN 10 MG TABLET GT SCH ×3 (05:37→21:38)
[2018-08-21] MEDS: BUDESONIDE 0.5 MG/2 ML NEBU NEB SCH ×2 (06:51→21:25)
[2018-08-21 08:00] VITALS: BP 92/48
[2018-08-21] MEDS: CALCIUM CARBONATE 500 MG TABLET GT SCH ×2 (08:13→21:38)
[2018-08-21] MEDS: HYDROGEN PEROXIDE 3% 118 ML BOTTLE TP SCH ×2 (08:13→21:38)
[2018-08-21] MEDS: NUTRISOURCE FIBER 4 GM PACKET GT SCH ×2 (08:13→21:37)
[2018-08-21] MEDS: Z GUARD REMEDY PASTE 57 GM TUBE TOP SCH ×2 (08:13→21:38)
[2018-08-21] MEDS: DOCUSATE SODIUM 100 MG/10 ML LIQUID UDC GT SCH (08:13)
--- NOTE | 2018-08-21 10:36 | NUR ---
Seen by Kamini Rodriguez ,no new orders.
[2018-08-21 20:00] VITALS: BP 129/81
[2018-08-21] MEDS: ATORVASTATIN 10 MG TABLET GT SCH (21:37)
[2018-08-21] MEDS: MULTIVIT, IRON, MIN NO. 8, FA TABLET GT SCH (21:38)
[2018-08-21] MEDS: BISACODYL 10 MG SUPP.RECT RC PRN (22:21)
[2018-08-22] MEDS: JEVITY 1.2 1000 ML LIQUID GT PRN (00:45)
[2018-08-22] MEDS: ALBUTEROL SULFATE 2.5 MG/3 ML NEBU NEB SCH ×6 (03:12→23:51)
[2018-08-22] MEDS: IPRATROPIUM BROMIDE 0.5 MG/2.5 ML NEBU NEB SCH ×6 (03:12→23:51)
[2018-08-22] MEDS: BACLOFEN 10 MG TABLET GT SCH ×3 (06:11→21:17)
[2018-08-22] MEDS: CHOLECALCIFEROL 1,000 UNIT TABLET GT SCH (06:11)
[2018-08-22] MEDS: BUDESONIDE 0.5 MG/2 ML NEBU NEB SCH ×2 (06:59→21:04)
[2018-08-22 08:00] VITALS: BP 137/85
[2018-08-22] MEDS: Z GUARD REMEDY PASTE 57 GM TUBE TOP SCH ×2 (08:44→21:17)
[2018-08-22] MEDS: HYDROGEN PEROXIDE 3% 118 ML BOTTLE TP SCH ×2 (08:44→21:17)
[2018-08-22] MEDS: DOCUSATE SODIUM 100 MG/10 ML LIQUID UDC GT SCH (08:44)
[2018-08-22] MEDS: NUTRISOURCE FIBER 4 GM PACKET GT SCH ×2 (08:44→21:16)
[2018-08-22] MEDS: CALCIUM CARBONATE 500 MG TABLET GT SCH ×2 (08:44→21:16)
[2018-08-22 20:00] VITALS: BP 119/96
[2018-08-22] MEDS: ATORVASTATIN 10 MG TABLET GT SCH (21:16)
[2018-08-23] MEDS: JEVITY 1.2 1000 ML LIQUID GT PRN ×2 (00:42→23:00)
[2018-08-23] MEDS: IPRATROPIUM BROMIDE 0.5 MG/2.5 ML NEBU NEB SCH ×6 (03:41→22:41)
[2018-08-23] MEDS: ALBUTEROL SULFATE 2.5 MG/3 ML NEBU NEB SCH ×6 (03:41→22:41)
[2018-08-23] MEDS: CHOLECALCIFEROL 1,000 UNIT TABLET GT SCH (05:48)
[2018-08-23] MEDS: BACLOFEN 10 MG TABLET GT SCH ×3 (05:48→21:30)
[2018-08-23] MEDS: BUDESONIDE 0.5 MG/2 ML NEBU NEB SCH ×2 (07:01→19:36)
[2018-08-23 08:00] VITALS: BP 122/68
[2018-08-23] MEDS: DOCUSATE SODIUM 100 MG/10 ML LIQUID UDC GT SCH (09:14)
[2018-08-23] MEDS: CALCIUM CARBONATE 500 MG TABLET GT SCH ×2 (09:14→21:29)
[2018-08-23] MEDS: NUTRISOURCE FIBER 4 GM PACKET GT SCH ×2 (09:14→21:29)
[2018-08-23] MEDS: HYDROGEN PEROXIDE 3% 118 ML BOTTLE TP SCH ×2 (09:15→21:30)
[2018-08-23] MEDS: Z GUARD REMEDY PASTE 57 GM TUBE TOP SCH ×2 (09:15→21:30)
[2018-08-23] MEDS: BISACODYL 10 MG SUPP.RECT RC PRN (13:44)
[2018-08-23 20:00] VITALS: BP 113/75
[2018-08-23] MEDS: ATORVASTATIN 10 MG TABLET GT SCH (21:29)
[2018-08-23] MEDS: MULTIVIT, IRON, MIN NO. 8, FA TABLET GT SCH (21:30)
[2018-08-24] MEDS: ALBUTEROL SULFATE 2.5 MG/3 ML NEBU NEB SCH ×6 (02:39→23:26)
[2018-08-24] MEDS: IPRATROPIUM BROMIDE 0.5 MG/2.5 ML NEBU NEB SCH ×6 (02:39→23:26)
[2018-08-24] MEDS: CHOLECALCIFEROL 1,000 UNIT TABLET GT SCH (05:52)
[2018-08-24] MEDS: BACLOFEN 10 MG TABLET GT SCH ×3 (05:52→21:04)
[2018-08-24] MEDS: BUDESONIDE 0.5 MG/2 ML NEBU NEB SCH ×2 (07:37→19:08)
[2018-08-24 08:07] VITALS: BP 121/74
[2018-08-24] MEDS: HYDROGEN PEROXIDE 3% 118 ML BOTTLE TP SCH ×2 (09:00→21:04)
[2018-08-24] MEDS: DOCUSATE SODIUM 100 MG/10 ML LIQUID UDC GT SCH (09:00)
[2018-08-24] MEDS: Z GUARD REMEDY PASTE 57 GM TUBE TOP SCH ×2 (09:00→21:04)
[2018-08-24] MEDS: NUTRISOURCE FIBER 4 GM PACKET GT SCH ×2 (09:00→21:04)
[2018-08-24] MEDS: CALCIUM CARBONATE 500 MG TABLET GT SCH ×2 (09:00→21:04)
[2018-08-24 20:19] VITALS: BP 126/71
[2018-08-24] MEDS: ATORVASTATIN 10 MG TABLET GT SCH (21:04)
[2018-08-25] MEDS: JEVITY 1.2 1000 ML LIQUID GT PRN (00:12)
[2018-08-25] MEDS: IPRATROPIUM BROMIDE 0.5 MG/2.5 ML NEBU NEB SCH ×6 (03:31→23:12)
[2018-08-25] MEDS: ALBUTEROL SULFATE 2.5 MG/3 ML NEBU NEB SCH ×6 (03:31→23:12)
[2018-08-25] MEDS: BACLOFEN 10 MG TABLET GT SCH ×3 (05:56→21:05)
[2018-08-25] MEDS: CHOLECALCIFEROL 1,000 UNIT TABLET GT SCH (05:56)
[2018-08-25] MEDS: BUDESONIDE 0.5 MG/2 ML NEBU NEB SCH ×2 (07:29→19:00)
[2018-08-25] MEDS: CALCIUM CARBONATE 500 MG TABLET GT SCH ×2 (08:58→20:55)
[2018-08-25] MEDS: NUTRISOURCE FIBER 4 GM PACKET GT SCH ×2 (08:58→20:54)
[2018-08-25] MEDS: DOCUSATE SODIUM 100 MG/10 ML LIQUID UDC GT SCH (08:58)
[2018-08-25] MEDS: HYDROGEN PEROXIDE 3% 118 ML BOTTLE TP SCH ×2 (08:59→20:55)
[2018-08-25] MEDS: Z GUARD REMEDY PASTE 57 GM TUBE TOP SCH ×2 (08:59→20:55)
--- NOTE | 2018-08-25 10:32 | NUR ---
PT. WAS SEEN BY HALINA CARREON
[2018-08-25 11:46] VITALS: BP 101/60
[2018-08-25 20:26] VITALS: BP 107/74
[2018-08-25] MEDS: ATORVASTATIN 10 MG TABLET GT SCH (20:54)
[2018-08-25] MEDS: MULTIVIT, IRON, MIN NO. 8, FA TABLET GT SCH (20:55)
[2018-08-26] MEDS: JEVITY 1.2 1000 ML LIQUID GT PRN ×2 (02:01→22:45)
[2018-08-26] MEDS: IPRATROPIUM BROMIDE 0.5 MG/2.5 ML NEBU NEB SCH ×6 (03:37→22:53)
[2018-08-26] MEDS: ALBUTEROL SULFATE 2.5 MG/3 ML NEBU NEB SCH ×6 (03:37→22:53)
[2018-08-26] MEDS: CHOLECALCIFEROL 1,000 UNIT TABLET GT SCH (06:13)
[2018-08-26] MEDS: BACLOFEN 10 MG TABLET GT SCH ×3 (06:13→21:15)
[2018-08-26] MEDS: BUDESONIDE 0.5 MG/2 ML NEBU NEB SCH ×2 (07:06→19:55)
[2018-08-26 08:00] VITALS: BP 135/89
[2018-08-26] MEDS: Z GUARD REMEDY PASTE 57 GM TUBE TOP SCH ×2 (09:00→21:15)
[2018-08-26] MEDS: DOCUSATE SODIUM 100 MG/10 ML LIQUID UDC GT SCH (09:00)
[2018-08-26] MEDS: CALCIUM CARBONATE 500 MG TABLET GT SCH ×2 (09:00→21:14)
[2018-08-26] MEDS: HYDROGEN PEROXIDE 3% 118 ML BOTTLE TP SCH ×2 (09:00→21:15)
[2018-08-26] MEDS: NUTRISOURCE FIBER 4 GM PACKET GT SCH ×2 (09:00→21:14)
[2018-08-26 20:19] VITALS: BP 127/80
[2018-08-26] MEDS: ATORVASTATIN 10 MG TABLET GT SCH (21:14)
[2018-08-27] MEDS: IPRATROPIUM BROMIDE 0.5 MG/2.5 ML NEBU NEB SCH ×6 (03:00→23:50)
[2018-08-27] MEDS: ALBUTEROL SULFATE 2.5 MG/3 ML NEBU NEB SCH ×6 (03:00→23:50)
[2018-08-27] MEDS: BACLOFEN 10 MG TABLET GT SCH ×3 (05:37→22:00)
[2018-08-27] MEDS: CHOLECALCIFEROL 1,000 UNIT TABLET GT SCH (05:37)
[2018-08-27] MEDS: BISACODYL 10 MG SUPP.RECT RC PRN (06:37)
[2018-08-27] MEDS: BUDESONIDE 0.5 MG/2 ML NEBU NEB SCH ×2 (07:48→20:55)
[2018-08-27 08:06] VITALS: BP 102/68
[2018-08-27] MEDS: Z GUARD REMEDY PASTE 57 GM TUBE TOP SCH ×2 (09:00→20:35)
[2018-08-27] MEDS: CALCIUM CARBONATE 500 MG TABLET GT SCH ×2 (09:00→20:35)
[2018-08-27] MEDS: HYDROGEN PEROXIDE 3% 118 ML BOTTLE TP SCH ×2 (09:00→20:35)
[2018-08-27] MEDS: DOCUSATE SODIUM 100 MG/10 ML LIQUID UDC GT SCH (09:00)
[2018-08-27] MEDS: NUTRISOURCE FIBER 4 GM PACKET GT SCH ×2 (09:00→20:35)
[2018-08-27] MEDS: ATORVASTATIN 10 MG TABLET GT SCH (20:35)
[2018-08-27] MEDS: MULTIVIT, IRON, MIN NO. 8, FA TABLET GT SCH (20:35)
[2018-08-27 20:47] VITALS: BP 103/64
[2018-08-28] MEDS: JEVITY 1.2 1000 ML LIQUID GT PRN (00:30)
[2018-08-28] MEDS: ALBUTEROL SULFATE 2.5 MG/3 ML NEBU NEB SCH (03:34)
[2018-08-28] MEDS: IPRATROPIUM BROMIDE 0.5 MG/2.5 ML NEBU NEB SCH (03:34)
[2018-08-28] MEDS: BACLOFEN 10 MG TABLET GT SCH (05:17)
[2018-08-28] MEDS: CHOLECALCIFEROL 1,000 UNIT TABLET GT SCH (05:38)
[2018-08-28] MEDS: DOCUSATE SODIUM 100 MG/10 ML LIQUID UDC GT SCH (09:59)
[2018-08-28] MEDS: NUTRISOURCE FIBER 4 GM PACKET GT SCH (09:59)
[2018-08-28] MEDS: HYDROGEN PEROXIDE 3% 118 ML BOTTLE TP SCH (09:59)
[2018-08-28] MEDS: Z GUARD REMEDY PASTE 57 GM TUBE TOP SCH (09:59)
[2018-08-28] MEDS: CALCIUM CARBONATE 500 MG TABLET GT SCH (09:59)
== END 2018-08-26 11:59 | disposition other institution (70) | DRG 133 ==
LOC: SA → UNDOADMIN → SA 00:01 → UNDOADMIN 00:01
PROVIDERS: ADMIT Specialist; ATTEND Specialist
DX: J96.10 Chronic respiratory failure, unspecified whether with hypoxia or hypercapnia (principal); G93.1 Anoxic brain damage, not elsewhere classified; R40.3 Persistent vegetative state; J18.9 Pneumonia, unspecified organism; Z93.0 Tracheostomy status; Z93.1 Gastrostomy status; N39.0 Urinary tract infection, site not specified; K27.9 Peptic ulcer, site unspecified, unspecified as acute or chronic, without hemorrhage or perforation; B95.61 Methicillin susceptible Staphylococcus aureus infection as the cause of diseases classified elsewhere; I25.10 Atherosclerotic heart disease of native coronary artery without angina pectoris; Z86.74 Personal history of sudden cardiac arrest; F19.21 Other psychoactive substance dependence, in remission; K59.00 Constipation, unspecified; G40.909 Epilepsy, unspecified, not intractable, without status epilepticus; M24.50 Contracture, unspecified joint; E66.3 Overweight; Z68.27 Body mass index [BMI] 27.0-27.9, adult; E78.5 Hyperlipidemia, unspecified; K08.109 Complete loss of teeth, unspecified cause, unspecified class; L03.115 Cellulitis of right lower limb; R13.10 Dysphagia, unspecified
CPT/HCPCS: 36415; 73551; 73560; 82306; 84443; 84481; 84550; 85025; 86580; 87086; 90686; 94640; 97110; 97530; A4217; A4663; C1758

== ENCOUNTER 2018-08-27 | Inpatient (IN) | END 2019-08-26 23:59 | disposition still patient (30) | DRG 133 | DX: J96.10 Chronic respiratory failure, unspecified whether with hypoxia or hypercapnia (principal); G93.1 Anoxic brain damage, not elsewhere classified; R40.3 Persistent vegetative state; Z93.0 Tracheostomy status; R13.10 Dysphagia, unspecified; Z93.1 Gastrostomy status; I25.10 Atherosclerotic heart disease of native coronary artery without angina pectoris; Z86.74 Personal history of sudden cardiac arrest; F19.21 Other psychoactive substance dependence, in remission; G40.909 Epilepsy, unspecified, not intractable, without status epilepticus; M24.50 Contracture, unspecified joint; E66.3 Overweight; Z68.27 Body mass index [BMI] 27.0-27.9, adult; E78.5 Hyperlipidemia, unspecified; K08.109 Complete loss of teeth, unspecified cause, unspecified class; K59.00 Constipation, unspecified ==

== ENCOUNTER → 2020-08-26 23:59 | Inpatient (IN) | payer MEDICAID ==
[2019-08-28 11:25] VITALS: BP 90/52
[2019-08-28] MEDS: IPRATROPIUM BROMIDE 0.5 MG/2.5 ML NEBU NEB SCH ×2 (18:50→23:01)
[2019-08-28] MEDS: ALBUTEROL SULFATE 2.5 MG/3 ML NEBU NEB SCH ×2 (18:50→23:01)
[2019-08-28] MEDS: BUDESONIDE 0.5 MG/2 ML NEBU NEB SCH (19:54)
[2019-08-28 20:13] VITALS: BP 142/76
[2019-08-28] MEDS: NEOMY/BACITRA/POLYMYXIN B OINT UD PACKET TP SCH (20:24)
[2019-08-28] MEDS: CALCIUM CARBONATE 500 MG TABLET GT SCH (20:24)
[2019-08-28] MEDS: ATORVASTATIN 10 MG TABLET GT SCH (20:24)
[2019-08-28] MEDS: MULTIVIT, IRON, MIN NO. 8, FA TABLET GT SCH (20:24)
[2019-08-28] MEDS: BACLOFEN 10 MG TABLET GT SCH (20:24)
[2019-08-28] MEDS: NUTRISOURCE FIBER 4 GM PACKET GT SCH (20:24)
[2019-08-28] MEDS: Z GUARD REMEDY PASTE 57 GM TUBE TOP SCH (20:24)
[2019-08-28] MEDS: HYDROGEN PEROXIDE 3% 118 ML BOTTLE TP SCH (20:38)
[2019-08-28 22:19] VITALS: BP 142/76
[2019-08-29] MEDS: ALBUTEROL SULFATE 2.5 MG/3 ML NEBU NEB SCH ×6 (02:30→22:52)
[2019-08-29] MEDS: IPRATROPIUM BROMIDE 0.5 MG/2.5 ML NEBU NEB SCH ×6 (02:30→22:52)
[2019-08-29] MEDS: JEVITY 1.2 1000 ML LIQUID GT PRN (04:08)
[2019-08-29] MEDS: CHOLECALCIFEROL 1,000 UNIT TABLET GT SCH (05:42)
[2019-08-29] MEDS: BUDESONIDE 0.5 MG/2 ML NEBU NEB SCH ×2 (07:07→19:30)
[2019-08-29] MEDS: DOCUSATE SODIUM 100 MG/10 ML LIQUID UDC GT SCH (08:29)
[2019-08-29] MEDS: BACLOFEN 10 MG TABLET GT SCH ×2 (08:30→20:12)
[2019-08-29] MEDS: NUTRISOURCE FIBER 4 GM PACKET GT SCH ×2 (08:30→20:12)
[2019-08-29] MEDS: CALCIUM CARBONATE 500 MG TABLET GT SCH ×2 (08:30→20:12)
[2019-08-29] MEDS: NEOMY/BACITRA/POLYMYXIN B OINT UD PACKET TP SCH ×2 (08:31→20:12)
[2019-08-29] MEDS: Z GUARD REMEDY PASTE 57 GM TUBE TOP SCH ×2 (09:00→20:12)
[2019-08-29] MEDS: HYDROGEN PEROXIDE 3% 118 ML BOTTLE TP SCH ×2 (09:53→21:02)
[2019-08-29 11:12] VITALS: BP 90/50
[2019-08-29] MEDS: ATORVASTATIN 10 MG TABLET GT SCH (20:12)
[2019-08-29 20:21] VITALS: BP 123/79
[2019-08-30] MEDS: IPRATROPIUM BROMIDE 0.5 MG/2.5 ML NEBU NEB SCH ×6 (02:32→22:58)
[2019-08-30] MEDS: ALBUTEROL SULFATE 2.5 MG/3 ML NEBU NEB SCH ×6 (02:32→22:58)
[2019-08-30] MEDS: CHOLECALCIFEROL 1,000 UNIT TABLET GT SCH (05:51)
[2019-08-30 07:44] VITALS: BP 121/80
[2019-08-30] MEDS: BACLOFEN 10 MG TABLET GT SCH ×2 (08:01→21:47)
[2019-08-30] MEDS: CALCIUM CARBONATE 500 MG TABLET GT SCH ×2 (08:02→21:47)
[2019-08-30] MEDS: NUTRISOURCE FIBER 4 GM PACKET GT SCH ×2 (08:02→21:47)
[2019-08-30] MEDS: NEOMY/BACITRA/POLYMYXIN B OINT UD PACKET TP SCH ×2 (08:03→21:47)
[2019-08-30] MEDS: Z GUARD REMEDY PASTE 57 GM TUBE TOP SCH ×2 (08:03→21:47)
[2019-08-30] MEDS: DOCUSATE SODIUM 100 MG/10 ML LIQUID UDC GT SCH (08:04)
[2019-08-30] MEDS: BUDESONIDE 0.5 MG/2 ML NEBU NEB SCH ×2 (08:32→19:36)
[2019-08-30] MEDS: HYDROGEN PEROXIDE 3% 118 ML BOTTLE TP SCH ×2 (09:10→21:55)
[2019-08-30] MEDS: JEVITY 1.2 1000 ML LIQUID GT PRN (10:04)
[2019-08-30] MEDS: ATORVASTATIN 10 MG TABLET GT SCH (21:47)
[2019-08-30] MEDS: MULTIVIT, IRON, MIN NO. 8, FA TABLET GT SCH (21:47)
[2019-08-30 22:30] VITALS: BP 114/80
[2019-08-31] MEDS: ALBUTEROL SULFATE 2.5 MG/3 ML NEBU NEB SCH ×6 (03:32→22:57)
[2019-08-31] MEDS: IPRATROPIUM BROMIDE 0.5 MG/2.5 ML NEBU NEB SCH ×6 (03:32→22:57)
[2019-08-31] MEDS: CHOLECALCIFEROL 1,000 UNIT TABLET GT SCH (06:02)
[2019-08-31] MEDS: BUDESONIDE 0.5 MG/2 ML NEBU NEB SCH ×2 (07:43→18:45)
[2019-08-31 08:01] VITALS: BP 139/97
[2019-08-31] MEDS: DOCUSATE SODIUM 100 MG/10 ML LIQUID UDC GT SCH (08:11)
[2019-08-31] MEDS: NUTRISOURCE FIBER 4 GM PACKET GT SCH ×2 (08:11→21:46)
[2019-08-31] MEDS: BACLOFEN 10 MG TABLET GT SCH ×2 (08:11→21:46)
[2019-08-31] MEDS: CALCIUM CARBONATE 500 MG TABLET GT SCH ×2 (08:11→21:46)
[2019-08-31] MEDS: Z GUARD REMEDY PASTE 57 GM TUBE TOP SCH ×2 (08:12→21:46)
[2019-08-31] MEDS: HYDROGEN PEROXIDE 3% 118 ML BOTTLE TP SCH ×2 (09:00→20:45)
[2019-08-31] MEDS: JEVITY 1.2 1000 ML LIQUID GT PRN (17:37)
[2019-08-31] MEDS: ATORVASTATIN 10 MG TABLET GT SCH (21:46)
[2019-08-31 21:56] VITALS: BP 124/83
[2019-09-01] MEDS: IPRATROPIUM BROMIDE 0.5 MG/2.5 ML NEBU NEB SCH ×6 (02:55→23:40)
[2019-09-01] MEDS: ALBUTEROL SULFATE 2.5 MG/3 ML NEBU NEB SCH ×6 (02:55→23:40)
[2019-09-01] MEDS: CHOLECALCIFEROL 1,000 UNIT TABLET GT SCH (05:33)
[2019-09-01] MEDS: BUDESONIDE 0.5 MG/2 ML NEBU NEB SCH ×2 (06:51→19:03)
[2019-09-01 08:01] VITALS: BP 153/93
[2019-09-01] MEDS: CALCIUM CARBONATE 500 MG TABLET GT SCH ×2 (08:01→20:36)
[2019-09-01] MEDS: Z GUARD REMEDY PASTE 57 GM TUBE TOP SCH ×2 (08:01→20:36)
[2019-09-01] MEDS: DOCUSATE SODIUM 100 MG/10 ML LIQUID UDC GT SCH (08:01)
[2019-09-01] MEDS: NUTRISOURCE FIBER 4 GM PACKET GT SCH ×2 (08:01→20:35)
[2019-09-01] MEDS: BACLOFEN 10 MG TABLET GT SCH ×2 (08:01→20:35)
[2019-09-01] MEDS: HYDROGEN PEROXIDE 3% 118 ML BOTTLE TP SCH ×2 (09:00→20:36)
[2019-09-01 20:28] VITALS: BP 124/81
[2019-09-01] MEDS: ATORVASTATIN 10 MG TABLET GT SCH (20:35)
[2019-09-01] MEDS: MULTIVIT, IRON, MIN NO. 8, FA TABLET GT SCH (20:36)
[2019-09-02] MEDS: JEVITY 1.2 1000 ML LIQUID GT PRN (00:57)
[2019-09-02] MEDS: ALBUTEROL SULFATE 2.5 MG/3 ML NEBU NEB SCH ×5 (03:01→18:42)
[2019-09-02] MEDS: IPRATROPIUM BROMIDE 0.5 MG/2.5 ML NEBU NEB SCH ×5 (03:01→18:42)
[2019-09-02] MEDS: CHOLECALCIFEROL 1,000 UNIT TABLET GT SCH (05:52)
[2019-09-02] MEDS: BUDESONIDE 0.5 MG/2 ML NEBU NEB SCH ×2 (06:00→18:42)
[2019-09-02 08:01] VITALS: BP 125/79
[2019-09-02] MEDS: BACLOFEN 10 MG TABLET GT SCH ×2 (08:10→20:13)
[2019-09-02] MEDS: NUTRISOURCE FIBER 4 GM PACKET GT SCH ×2 (08:10→20:14)
[2019-09-02] MEDS: DOCUSATE SODIUM 100 MG/10 ML LIQUID UDC GT SCH (08:10)
[2019-09-02] MEDS: Z GUARD REMEDY PASTE 57 GM TUBE TOP SCH ×2 (08:11→20:14)
[2019-09-02] MEDS: CALCIUM CARBONATE 500 MG TABLET GT SCH ×2 (08:11→20:14)
[2019-09-02] MEDS: HYDROGEN PEROXIDE 3% 118 ML BOTTLE TP SCH ×2 (09:00→20:14)
--- NOTE | 2019-09-02 13:56 | NUR ---
Pharmacy Update from Today's 09/02/19 IDT Meeting: VS: Temp 97.6 BP 125/79 HR 74 LABS: (from 08/20/19, no new labs) Wbc 5.5 H/H 14/41.7 Plt 149 Na 142 K 3.8 Cl 105 CO2 32 BUN/SCr 13/0.6 BS 113 Ca 8.8 MEDICATION USE REVIEWED: > Pt not on any anti-psych or anti-seizure medications > PRN MED USAGE: (Dec) Tylenol for pain used x 0 Tylenol for temp used x 0 Bisacodyl PRN x 3 NEW ORDERS NOTED: > NA Pt was reviewed and discussed in depth with no medication concerns or issues reported at this time and no further recs from rx at this time. Pt remains stable on current regimen, will continue to follow.
--- NOTE | 2019-09-02 16:02 | NUR ---
INTERDISCIPLINARY PLAN OF CARE CONFERENCE was held today. Patient's family live [id number] and are not available to participate in the IDT meeting. Dr. Underwood and the Interdisciplinary Team reviewed the current plan of care in detail. RN reported on patient's current medical condition. No major changes were reported at this time. See RN IDT conference notes. See also all other disciplines IDT notes and physician's progress notes for additional details.
[2019-09-02 19:56] VITALS: BP 129/88
[2019-09-02] MEDS: ATORVASTATIN 10 MG TABLET GT SCH (20:14)
[2019-09-03] MEDS: IPRATROPIUM BROMIDE 0.5 MG/2.5 ML NEBU NEB SCH ×7 (00:14→23:00)
[2019-09-03] MEDS: ALBUTEROL SULFATE 2.5 MG/3 ML NEBU NEB SCH ×7 (00:14→23:00)
[2019-09-03] MEDS: CHOLECALCIFEROL 1,000 UNIT TABLET GT SCH (06:37)
[2019-09-03 08:00] VITALS: BP 122/90
[2019-09-03] MEDS: Z GUARD REMEDY PASTE 57 GM TUBE TOP SCH ×2 (08:02→21:45)
[2019-09-03] MEDS: NUTRISOURCE FIBER 4 GM PACKET GT SCH ×2 (08:02→21:45)
[2019-09-03] MEDS: CALCIUM CARBONATE 500 MG TABLET GT SCH ×2 (08:02→21:45)
[2019-09-03] MEDS: BACLOFEN 10 MG TABLET GT SCH ×2 (08:02→21:45)
[2019-09-03] MEDS: DOCUSATE SODIUM 100 MG/10 ML LIQUID UDC GT SCH (08:02)
[2019-09-03] MEDS: BUDESONIDE 0.5 MG/2 ML NEBU NEB SCH ×2 (08:15→18:48)
[2019-09-03 08:30] VITALS: BP 118/81
[2019-09-03] MEDS: HYDROGEN PEROXIDE 3% 118 ML BOTTLE TP SCH ×2 (09:02→21:06)
[2019-09-03] MEDS: BISACODYL 10 MG SUPP.RECT RC PRN (10:48)
[2019-09-03 20:16] VITALS: BP 105/66
[2019-09-03] MEDS: MULTIVIT, IRON, MIN NO. 8, FA TABLET GT SCH (21:45)
[2019-09-03] MEDS: ATORVASTATIN 10 MG TABLET GT SCH (21:45)
[2019-09-04] MEDS: ALBUTEROL SULFATE 2.5 MG/3 ML NEBU NEB SCH ×6 (02:53→22:32)
[2019-09-04] MEDS: IPRATROPIUM BROMIDE 0.5 MG/2.5 ML NEBU NEB SCH ×6 (02:53→22:32)
[2019-09-04] MEDS: JEVITY 1.2 1000 ML LIQUID GT PRN (04:07)
[2019-09-04] MEDS: CHOLECALCIFEROL 1,000 UNIT TABLET GT SCH (06:19)
[2019-09-04] MEDS: BUDESONIDE 0.5 MG/2 ML NEBU NEB SCH ×2 (07:31→18:57)
[2019-09-04 08:30] VITALS: BP 135/79
[2019-09-04] MEDS: DOCUSATE SODIUM 100 MG/10 ML LIQUID UDC GT SCH (08:44)
[2019-09-04] MEDS: BACLOFEN 10 MG TABLET GT SCH ×2 (08:44→21:27)
[2019-09-04] MEDS: NUTRISOURCE FIBER 4 GM PACKET GT SCH ×2 (08:45→21:27)
[2019-09-04] MEDS: Z GUARD REMEDY PASTE 57 GM TUBE TOP SCH ×2 (08:45→21:27)
[2019-09-04] MEDS: CALCIUM CARBONATE 500 MG TABLET GT SCH ×2 (08:45→21:27)
[2019-09-04] MEDS: HYDROGEN PEROXIDE 3% 118 ML BOTTLE TP SCH ×2 (09:00→21:53)
[2019-09-04 20:42] VITALS: BP 121/70
[2019-09-04] MEDS: ATORVASTATIN 10 MG TABLET GT SCH (21:27)
[2019-09-05] MEDS: IPRATROPIUM BROMIDE 0.5 MG/2.5 ML NEBU NEB SCH ×6 (02:38→22:55)
[2019-09-05] MEDS: ALBUTEROL SULFATE 2.5 MG/3 ML NEBU NEB SCH ×6 (02:38→22:55)
[2019-09-05] MEDS: JEVITY 1.2 1000 ML LIQUID GT PRN (03:55)
[2019-09-05] MEDS: CHOLECALCIFEROL 1,000 UNIT TABLET GT SCH (05:58)
[2019-09-05] MEDS: BUDESONIDE 0.5 MG/2 ML NEBU NEB SCH ×2 (07:15→18:56)
[2019-09-05 08:01] VITALS: BP 97/62
[2019-09-05] MEDS: NUTRISOURCE FIBER 4 GM PACKET GT SCH ×2 (08:09→20:30)
[2019-09-05] MEDS: BACLOFEN 10 MG TABLET GT SCH ×2 (08:09→20:30)
[2019-09-05] MEDS: DOCUSATE SODIUM 100 MG/10 ML LIQUID UDC GT SCH (08:09)
[2019-09-05] MEDS: CALCIUM CARBONATE 500 MG TABLET GT SCH ×2 (08:09→20:30)
[2019-09-05] MEDS: Z GUARD REMEDY PASTE 57 GM TUBE TOP SCH ×2 (08:10→20:30)
[2019-09-05] MEDS: HYDROGEN PEROXIDE 3% 118 ML BOTTLE TP SCH ×2 (09:00→20:55)
[2019-09-05] MEDS: ATORVASTATIN 10 MG TABLET GT SCH (20:30)
[2019-09-05] MEDS: MULTIVIT, IRON, MIN NO. 8, FA TABLET GT SCH (20:30)
[2019-09-05 20:39] VITALS: BP 106/72
[2019-09-06] MEDS: JEVITY 1.2 1000 ML LIQUID GT PRN (02:15)
[2019-09-06] MEDS: ALBUTEROL SULFATE 2.5 MG/3 ML NEBU NEB SCH ×6 (02:53→22:43)
[2019-09-06] MEDS: IPRATROPIUM BROMIDE 0.5 MG/2.5 ML NEBU NEB SCH ×6 (02:53→22:43)
[2019-09-06] MEDS: CHOLECALCIFEROL 1,000 UNIT TABLET GT SCH (05:57)
[2019-09-06] MEDS: BUDESONIDE 0.5 MG/2 ML NEBU NEB SCH ×2 (07:50→19:52)
[2019-09-06] MEDS: HYDROGEN PEROXIDE 3% 118 ML BOTTLE TP SCH ×2 (07:51→20:52)
[2019-09-06 08:01] VITALS: BP 125/83
[2019-09-06] MEDS: DOCUSATE SODIUM 100 MG/10 ML LIQUID UDC GT SCH (08:27)
[2019-09-06] MEDS: BACLOFEN 10 MG TABLET GT SCH ×2 (08:28→20:09)
[2019-09-06] MEDS: NUTRISOURCE FIBER 4 GM PACKET GT SCH ×2 (08:28→20:09)
[2019-09-06] MEDS: Z GUARD REMEDY PASTE 57 GM TUBE TOP SCH ×2 (08:30→20:09)
[2019-09-06] MEDS: CALCIUM CARBONATE 500 MG TABLET GT SCH ×2 (08:30→20:09)
[2019-09-06] MEDS: ATORVASTATIN 10 MG TABLET GT SCH (20:09)
[2019-09-06 20:34] VITALS: BP 127/86
[2019-09-07] MEDS: ALBUTEROL SULFATE 2.5 MG/3 ML NEBU NEB SCH ×6 (02:56→22:52)
[2019-09-07] MEDS: IPRATROPIUM BROMIDE 0.5 MG/2.5 ML NEBU NEB SCH ×6 (02:56→22:52)
[2019-09-07] MEDS: CHOLECALCIFEROL 1,000 UNIT TABLET GT SCH (05:34)
[2019-09-07] MEDS: BISACODYL 10 MG SUPP.RECT RC PRN (06:30)
[2019-09-07] MEDS: BUDESONIDE 0.5 MG/2 ML NEBU NEB SCH ×2 (07:30→19:42)
[2019-09-07 08:03] VITALS: BP 125/91
[2019-09-07] MEDS: DOCUSATE SODIUM 100 MG/10 ML LIQUID UDC GT SCH (08:32)
[2019-09-07] MEDS: BACLOFEN 10 MG TABLET GT SCH ×2 (08:32→20:07)
[2019-09-07] MEDS: CALCIUM CARBONATE 500 MG TABLET GT SCH ×2 (08:32→20:07)
[2019-09-07] MEDS: NUTRISOURCE FIBER 4 GM PACKET GT SCH ×2 (08:32→20:07)
[2019-09-07] MEDS: Z GUARD REMEDY PASTE 57 GM TUBE TOP SCH ×2 (08:32→20:07)
[2019-09-07] MEDS: JEVITY 1.2 1000 ML LIQUID GT PRN (09:07)
[2019-09-07] MEDS: HYDROGEN PEROXIDE 3% 118 ML BOTTLE TP SCH ×2 (09:51→20:50)
[2019-09-07] MEDS: ATORVASTATIN 10 MG TABLET GT SCH (20:07)
[2019-09-07] MEDS: MULTIVIT, IRON, MIN NO. 8, FA TABLET GT SCH (20:07)
[2019-09-07 20:15] VITALS: BP 140/92
[2019-09-08] MEDS: IPRATROPIUM BROMIDE 0.5 MG/2.5 ML NEBU NEB SCH ×5 (02:44→18:54)
[2019-09-08] MEDS: ALBUTEROL SULFATE 2.5 MG/3 ML NEBU NEB SCH ×5 (02:44→18:54)
[2019-09-08] MEDS: CHOLECALCIFEROL 1,000 UNIT TABLET GT SCH (05:39)
[2019-09-08] MEDS: BISACODYL 10 MG SUPP.RECT RC PRN (06:52)
[2019-09-08] MEDS: BUDESONIDE 0.5 MG/2 ML NEBU NEB SCH ×2 (07:09→20:12)
--- NOTE | 2019-09-08 07:52 | NUR ---
NURSE CALLED TO ROOM. NOTED PT"S RIGHT ARMPIT WITH OPEN SKIN. MD MADE AWARE WITH NEW ORDER NOTED AND CARRIED OUT. TX INITIATED.
[2019-09-08 08:01] VITALS: BP 133/83
[2019-09-08] MEDS: HYDROGEN PEROXIDE 3% 118 ML BOTTLE TP SCH ×2 (09:00→20:12)
[2019-09-08] MEDS: CALCIUM CARBONATE 500 MG TABLET GT SCH ×2 (09:00→20:39)
[2019-09-08] MEDS: NEOMY/BACITRA/POLYMYXIN B OINT UD PACKET TP SCH ×2 (09:00→20:39)
[2019-09-08] MEDS: NUTRISOURCE FIBER 4 GM PACKET GT SCH ×2 (09:00→20:39)
[2019-09-08] MEDS: BACLOFEN 10 MG TABLET GT SCH ×2 (09:00→20:39)
[2019-09-08] MEDS: DOCUSATE SODIUM 100 MG/10 ML LIQUID UDC GT SCH (09:00)
[2019-09-08] MEDS: Z GUARD REMEDY PASTE 57 GM TUBE TOP SCH ×2 (09:00→20:39)
[2019-09-08] MEDS: ATORVASTATIN 10 MG TABLET GT SCH (20:39)
[2019-09-08 20:55] VITALS: BP 130/82
[2019-09-09] MEDS: ALBUTEROL SULFATE 2.5 MG/3 ML NEBU NEB SCH ×7 (00:06→22:58)
[2019-09-09] MEDS: IPRATROPIUM BROMIDE 0.5 MG/2.5 ML NEBU NEB SCH ×7 (00:06→22:58)
[2019-09-09] MEDS: CHOLECALCIFEROL 1,000 UNIT TABLET GT SCH (05:33)
[2019-09-09] MEDS: BUDESONIDE 0.5 MG/2 ML NEBU NEB SCH ×2 (07:03→18:53)
[2019-09-09 08:01] VITALS: BP 127/62
[2019-09-09] MEDS: BACLOFEN 10 MG TABLET GT SCH ×2 (08:54→21:39)
[2019-09-09] MEDS: DOCUSATE SODIUM 100 MG/10 ML LIQUID UDC GT SCH (08:54)
[2019-09-09] MEDS: NUTRISOURCE FIBER 4 GM PACKET GT SCH ×2 (08:54→21:39)
[2019-09-09] MEDS: CALCIUM CARBONATE 500 MG TABLET GT SCH ×2 (08:55→21:39)
[2019-09-09] MEDS: NEOMY/BACITRA/POLYMYXIN B OINT UD PACKET TP SCH ×2 (08:55→21:39)
[2019-09-09] MEDS: Z GUARD REMEDY PASTE 57 GM TUBE TOP SCH ×2 (08:55→21:39)
[2019-09-09] MEDS: HYDROGEN PEROXIDE 3% 118 ML BOTTLE TP SCH ×2 (09:00→20:59)
[2019-09-09] MEDS: JEVITY 1.2 1000 ML LIQUID GT PRN (16:17)
[2019-09-09] MEDS: BISACODYL 10 MG SUPP.RECT RC PRN (17:55)
[2019-09-09 20:16] VITALS: BP 108/69
[2019-09-09] MEDS: MULTIVIT, IRON, MIN NO. 8, FA TABLET GT SCH (21:39)
[2019-09-09] MEDS: ATORVASTATIN 10 MG TABLET GT SCH (21:39)
[2019-09-10] MEDS: IPRATROPIUM BROMIDE 0.5 MG/2.5 ML NEBU NEB SCH ×6 (02:54→22:41)
[2019-09-10] MEDS: ALBUTEROL SULFATE 2.5 MG/3 ML NEBU NEB SCH ×6 (02:54→22:41)
[2019-09-10] MEDS: CHOLECALCIFEROL 1,000 UNIT TABLET GT SCH (06:11)
[2019-09-10] MEDS: BUDESONIDE 0.5 MG/2 ML NEBU NEB SCH ×2 (06:58→19:35)
[2019-09-10 08:01] VITALS: BP 112/76
[2019-09-10] MEDS: NEOMY/BACITRA/POLYMYXIN B OINT UD PACKET TP SCH ×2 (08:15→21:29)
[2019-09-10] MEDS: DOCUSATE SODIUM 100 MG/10 ML LIQUID UDC GT SCH (08:15)
[2019-09-10] MEDS: NUTRISOURCE FIBER 4 GM PACKET GT SCH ×2 (08:15→21:28)
[2019-09-10] MEDS: CALCIUM CARBONATE 500 MG TABLET GT SCH ×2 (08:15→21:28)
[2019-09-10] MEDS: Z GUARD REMEDY PASTE 57 GM TUBE TOP SCH ×2 (08:15→21:28)
[2019-09-10] MEDS: BACLOFEN 10 MG TABLET GT SCH ×2 (08:15→21:28)
[2019-09-10] MEDS: HYDROGEN PEROXIDE 3% 118 ML BOTTLE TP SCH ×2 (08:40→21:07)
[2019-09-10 20:21] VITALS: BP 112/80
[2019-09-10] MEDS: ATORVASTATIN 10 MG TABLET GT SCH (21:28)
[2019-09-11] MEDS: ALBUTEROL SULFATE 2.5 MG/3 ML NEBU NEB SCH ×6 (02:35→23:18)
[2019-09-11] MEDS: IPRATROPIUM BROMIDE 0.5 MG/2.5 ML NEBU NEB SCH ×6 (02:35→23:18)
[2019-09-11] MEDS: CHOLECALCIFEROL 1,000 UNIT TABLET GT SCH (06:06)
[2019-09-11] MEDS: BUDESONIDE 0.5 MG/2 ML NEBU NEB SCH ×2 (07:20→19:13)
[2019-09-11 08:00] VITALS: BP 115/68
[2019-09-11] MEDS: CALCIUM CARBONATE 500 MG TABLET GT SCH ×2 (08:15→21:40)
[2019-09-11] MEDS: BACLOFEN 10 MG TABLET GT SCH ×2 (08:15→21:40)
[2019-09-11] MEDS: Z GUARD REMEDY PASTE 57 GM TUBE TOP SCH ×2 (08:15→21:41)
[2019-09-11] MEDS: DOCUSATE SODIUM 100 MG/10 ML LIQUID UDC GT SCH (08:15)
[2019-09-11] MEDS: NEOMY/BACITRA/POLYMYXIN B OINT UD PACKET TP SCH ×2 (08:15→21:41)
[2019-09-11] MEDS: NUTRISOURCE FIBER 4 GM PACKET GT SCH ×2 (08:15→21:40)
[2019-09-11] MEDS: HYDROGEN PEROXIDE 3% 118 ML BOTTLE TP SCH ×2 (09:10→19:13)
[2019-09-11 20:24] VITALS: BP 124/76
[2019-09-11] MEDS: ATORVASTATIN 10 MG TABLET GT SCH (21:40)
[2019-09-11] MEDS: MULTIVIT, IRON, MIN NO. 8, FA TABLET GT SCH (21:41)
[2019-09-12] MEDS: ALBUTEROL SULFATE 2.5 MG/3 ML NEBU NEB SCH ×6 (02:55→22:55)
[2019-09-12] MEDS: IPRATROPIUM BROMIDE 0.5 MG/2.5 ML NEBU NEB SCH ×6 (02:55→22:55)
[2019-09-12] MEDS: CHOLECALCIFEROL 1,000 UNIT TABLET GT SCH (05:57)
[2019-09-12] MEDS: BUDESONIDE 0.5 MG/2 ML NEBU NEB SCH ×2 (07:45→18:47)
[2019-09-12 08:00] VITALS: BP 151/38
[2019-09-12] MEDS: NUTRISOURCE FIBER 4 GM PACKET GT SCH ×2 (08:34→20:46)
[2019-09-12] MEDS: CALCIUM CARBONATE 500 MG TABLET GT SCH ×2 (08:34→20:47)
[2019-09-12] MEDS: Z GUARD REMEDY PASTE 57 GM TUBE TOP SCH ×2 (08:34→20:47)
[2019-09-12] MEDS: BACLOFEN 10 MG TABLET GT SCH ×2 (08:34→20:46)
[2019-09-12] MEDS: DOCUSATE SODIUM 100 MG/10 ML LIQUID UDC GT SCH (08:34)
[2019-09-12] MEDS: NEOMY/BACITRA/POLYMYXIN B OINT UD PACKET TP SCH ×2 (08:35→20:47)
[2019-09-12] MEDS: HYDROGEN PEROXIDE 3% 118 ML BOTTLE TP SCH ×2 (08:40→20:47)
[2019-09-12] MEDS: JEVITY 1.2 1000 ML LIQUID GT PRN (17:11)
[2019-09-12 20:13] VITALS: BP 147/85
[2019-09-12] MEDS: ATORVASTATIN 10 MG TABLET GT SCH (20:46)
[2019-09-13] MEDS: IPRATROPIUM BROMIDE 0.5 MG/2.5 ML NEBU NEB SCH ×6 (02:55→22:57)
[2019-09-13] MEDS: ALBUTEROL SULFATE 2.5 MG/3 ML NEBU NEB SCH ×6 (02:55→22:57)
[2019-09-13] MEDS: CHOLECALCIFEROL 1,000 UNIT TABLET GT SCH (06:39)
[2019-09-13 08:02] VITALS: BP 128/80
[2019-09-13] MEDS: HYDROGEN PEROXIDE 3% 118 ML BOTTLE TP SCH ×2 (08:03→21:20)
[2019-09-13] MEDS: BUDESONIDE 0.5 MG/2 ML NEBU NEB SCH ×2 (08:04→18:52)
[2019-09-13] MEDS: DOCUSATE SODIUM 100 MG/10 ML LIQUID UDC GT SCH (08:18)
[2019-09-13] MEDS: Z GUARD REMEDY PASTE 57 GM TUBE TOP SCH ×2 (08:19→21:21)
[2019-09-13] MEDS: CALCIUM CARBONATE 500 MG TABLET GT SCH ×2 (08:19→21:21)
[2019-09-13] MEDS: NEOMY/BACITRA/POLYMYXIN B OINT UD PACKET TP SCH ×2 (08:19→21:21)
[2019-09-13] MEDS: NUTRISOURCE FIBER 4 GM PACKET GT SCH ×2 (08:19→21:21)
[2019-09-13] MEDS: BACLOFEN 10 MG TABLET GT SCH ×2 (08:19→21:21)
[2019-09-13] MEDS: JEVITY 1.2 1000 ML LIQUID GT PRN (17:12)
[2019-09-13 20:06] VITALS: BP 102/62
[2019-09-13] MEDS: ATORVASTATIN 10 MG TABLET GT SCH (21:21)
[2019-09-13] MEDS: MULTIVIT, IRON, MIN NO. 8, FA TABLET GT SCH (21:21)
[2019-09-14] MEDS: IPRATROPIUM BROMIDE 0.5 MG/2.5 ML NEBU NEB SCH ×6 (02:47→22:54)
[2019-09-14] MEDS: ALBUTEROL SULFATE 2.5 MG/3 ML NEBU NEB SCH ×6 (02:47→22:54)
[2019-09-14] MEDS: CHOLECALCIFEROL 1,000 UNIT TABLET GT SCH (05:35)
[2019-09-14] MEDS: BUDESONIDE 0.5 MG/2 ML NEBU NEB SCH ×2 (07:26→18:50)
[2019-09-14 08:02] VITALS: BP 120/81
[2019-09-14] MEDS: BACLOFEN 10 MG TABLET GT SCH ×2 (08:11→21:00)
[2019-09-14] MEDS: DOCUSATE SODIUM 100 MG/10 ML LIQUID UDC GT SCH (08:11)
[2019-09-14] MEDS: NUTRISOURCE FIBER 4 GM PACKET GT SCH ×2 (08:11→21:00)
[2019-09-14] MEDS: NEOMY/BACITRA/POLYMYXIN B OINT UD PACKET TP SCH ×2 (08:13→21:00)
[2019-09-14] MEDS: CALCIUM CARBONATE 500 MG TABLET GT SCH ×2 (08:13→21:00)
[2019-09-14] MEDS: Z GUARD REMEDY PASTE 57 GM TUBE TOP SCH ×2 (08:13→21:00)
[2019-09-14] MEDS: HYDROGEN PEROXIDE 3% 118 ML BOTTLE TP SCH ×2 (08:40→20:56)
[2019-09-14] MEDS: JEVITY 1.2 1000 ML LIQUID GT PRN (13:34)
[2019-09-14 20:02] VITALS: BP 128/80
[2019-09-14] MEDS: ATORVASTATIN 10 MG TABLET GT SCH (21:00)
[2019-09-15] MEDS: IPRATROPIUM BROMIDE 0.5 MG/2.5 ML NEBU NEB SCH ×6 (02:53→22:40)
[2019-09-15] MEDS: ALBUTEROL SULFATE 2.5 MG/3 ML NEBU NEB SCH ×6 (02:53→22:40)
[2019-09-15] MEDS: CHOLECALCIFEROL 1,000 UNIT TABLET GT SCH (06:01)
[2019-09-15] MEDS: BUDESONIDE 0.5 MG/2 ML NEBU NEB SCH ×2 (07:27→19:28)
[2019-09-15 08:00] VITALS: BP 84/41
[2019-09-15] MEDS: DOCUSATE SODIUM 100 MG/10 ML LIQUID UDC GT SCH (08:21)
[2019-09-15] MEDS: CALCIUM CARBONATE 500 MG TABLET GT SCH ×2 (08:22→21:41)
[2019-09-15] MEDS: BACLOFEN 10 MG TABLET GT SCH ×2 (08:22→21:41)
[2019-09-15] MEDS: NUTRISOURCE FIBER 4 GM PACKET GT SCH ×2 (08:22→21:41)
[2019-09-15] MEDS: Z GUARD REMEDY PASTE 57 GM TUBE TOP SCH ×2 (08:22→21:41)
[2019-09-15] MEDS: NEOMY/BACITRA/POLYMYXIN B OINT UD PACKET TP SCH ×2 (08:22→21:42)
[2019-09-15] MEDS: HYDROGEN PEROXIDE 3% 118 ML BOTTLE TP SCH ×2 (09:00→19:28)
[2019-09-15] MEDS: JEVITY 1.2 1000 ML LIQUID GT PRN (11:56)
[2019-09-15 19:47] VITALS: BP 152/86
[2019-09-15] MEDS: MULTIVIT, IRON, MIN NO. 8, FA TABLET GT SCH (21:41)
[2019-09-15] MEDS: ATORVASTATIN 10 MG TABLET GT SCH (21:41)
[2019-09-16] MEDS: ALBUTEROL SULFATE 2.5 MG/3 ML NEBU NEB SCH ×6 (03:29→23:05)
[2019-09-16] MEDS: IPRATROPIUM BROMIDE 0.5 MG/2.5 ML NEBU NEB SCH ×6 (03:29→23:05)
[2019-09-16] MEDS: CHOLECALCIFEROL 1,000 UNIT TABLET GT SCH (05:57)
[2019-09-16] MEDS: BISACODYL 10 MG SUPP.RECT RC PRN (06:59)
[2019-09-16] MEDS: BUDESONIDE 0.5 MG/2 ML NEBU NEB SCH ×2 (07:13→18:50)
[2019-09-16 08:00] VITALS: BP 125/76
[2019-09-16] MEDS: Z GUARD REMEDY PASTE 57 GM TUBE TOP SCH ×2 (08:31→20:31)
[2019-09-16] MEDS: CALCIUM CARBONATE 500 MG TABLET GT SCH ×2 (08:31→20:31)
[2019-09-16] MEDS: BACLOFEN 10 MG TABLET GT SCH ×2 (08:31→20:31)
[2019-09-16] MEDS: NUTRISOURCE FIBER 4 GM PACKET GT SCH ×2 (08:31→20:31)
[2019-09-16] MEDS: NEOMY/BACITRA/POLYMYXIN B OINT UD PACKET TP SCH ×2 (08:31→20:31)
[2019-09-16] MEDS: DOCUSATE SODIUM 100 MG/10 ML LIQUID UDC GT SCH (08:31)
[2019-09-16] MEDS: JEVITY 1.2 1000 ML LIQUID GT PRN (08:32)
[2019-09-16] MEDS: HYDROGEN PEROXIDE 3% 118 ML BOTTLE TP SCH ×2 (09:00→21:10)
[2019-09-16 19:34] VITALS: BP 127/74
[2019-09-16] MEDS: ATORVASTATIN 10 MG TABLET GT SCH (20:31)
[2019-09-17] MEDS: IPRATROPIUM BROMIDE 0.5 MG/2.5 ML NEBU NEB SCH ×6 (03:07→22:30)
[2019-09-17] MEDS: ALBUTEROL SULFATE 2.5 MG/3 ML NEBU NEB SCH ×6 (03:07→22:30)
[2019-09-17] MEDS: JEVITY 1.2 1000 ML LIQUID GT PRN (03:08)
[2019-09-17] MEDS: CHOLECALCIFEROL 1,000 UNIT TABLET GT SCH (05:54)
[2019-09-17] MEDS: BUDESONIDE 0.5 MG/2 ML NEBU NEB SCH ×2 (07:08→19:32)
[2019-09-17 08:00] VITALS: BP 108/61
[2019-09-17] MEDS: BACLOFEN 10 MG TABLET GT SCH ×2 (08:34→20:15)
[2019-09-17] MEDS: Z GUARD REMEDY PASTE 57 GM TUBE TOP SCH ×2 (08:34→20:15)
[2019-09-17] MEDS: CALCIUM CARBONATE 500 MG TABLET GT SCH ×2 (08:34→20:15)
[2019-09-17] MEDS: DOCUSATE SODIUM 100 MG/10 ML LIQUID UDC GT SCH (08:34)
[2019-09-17] MEDS: NUTRISOURCE FIBER 4 GM PACKET GT SCH ×2 (08:34→20:15)
[2019-09-17] MEDS: NEOMY/BACITRA/POLYMYXIN B OINT UD PACKET TP SCH ×2 (08:35→20:16)
[2019-09-17] MEDS: HYDROGEN PEROXIDE 3% 118 ML BOTTLE TP SCH ×2 (08:35→20:56)
[2019-09-17 19:50] VITALS: BP 112/71
[2019-09-17] MEDS: MULTIVIT, IRON, MIN NO. 8, FA TABLET GT SCH (20:15)
[2019-09-17] MEDS: ATORVASTATIN 10 MG TABLET GT SCH (20:15)
[2019-09-18] MEDS: ALBUTEROL SULFATE 2.5 MG/3 ML NEBU NEB SCH ×6 (02:41→22:30)
[2019-09-18] MEDS: IPRATROPIUM BROMIDE 0.5 MG/2.5 ML NEBU NEB SCH ×6 (02:41→22:30)
[2019-09-18] MEDS: JEVITY 1.2 1000 ML LIQUID GT PRN (06:00)
[2019-09-18] MEDS: CHOLECALCIFEROL 1,000 UNIT TABLET GT SCH (06:27)
[2019-09-18] MEDS: BUDESONIDE 0.5 MG/2 ML NEBU NEB SCH ×2 (07:38→19:11)
[2019-09-18] MEDS: HYDROGEN PEROXIDE 3% 118 ML BOTTLE TP SCH ×2 (08:44→19:08)
[2019-09-18] MEDS: DOCUSATE SODIUM 100 MG/10 ML LIQUID UDC GT SCH (08:45)
[2019-09-18] MEDS: NUTRISOURCE FIBER 4 GM PACKET GT SCH ×2 (08:45→20:50)
[2019-09-18] MEDS: CALCIUM CARBONATE 500 MG TABLET GT SCH ×2 (08:45→20:50)
[2019-09-18] MEDS: Z GUARD REMEDY PASTE 57 GM TUBE TOP SCH ×2 (08:45→20:50)
[2019-09-18] MEDS: BACLOFEN 10 MG TABLET GT SCH ×2 (08:45→20:49)
[2019-09-18 20:34] VITALS: BP 115/80
[2019-09-18] MEDS: ATORVASTATIN 10 MG TABLET GT SCH (20:49)
[2019-09-18] MEDS: NEOMY/BACITRA/POLYMYXIN B OINT UD PACKET TP SCH (20:49)
[2019-09-19] MEDS: IPRATROPIUM BROMIDE 0.5 MG/2.5 ML NEBU NEB SCH ×6 (03:36→22:51)
[2019-09-19] MEDS: ALBUTEROL SULFATE 2.5 MG/3 ML NEBU NEB SCH ×6 (03:36→22:51)
[2019-09-19] MEDS: JEVITY 1.2 1000 ML LIQUID GT PRN (04:47)
[2019-09-19] MEDS: CHOLECALCIFEROL 1,000 UNIT TABLET GT SCH (05:43)
[2019-09-19] MEDS: BUDESONIDE 0.5 MG/2 ML NEBU NEB SCH ×2 (07:14→19:01)
[2019-09-19 08:00] VITALS: BP 120/67
[2019-09-19] MEDS: Z GUARD REMEDY PASTE 57 GM TUBE TOP SCH ×3 (08:00→20:05)
[2019-09-19] MEDS: CALCIUM CARBONATE 500 MG TABLET GT SCH ×3 (08:00→20:05)
[2019-09-19] MEDS: NUTRISOURCE FIBER 4 GM PACKET GT SCH ×3 (08:00→20:05)
[2019-09-19] MEDS: BACLOFEN 10 MG TABLET GT SCH ×3 (08:00→20:05)
[2019-09-19] MEDS: DOCUSATE SODIUM 100 MG/10 ML LIQUID UDC GT SCH ×2 (08:00→08:18)
[2019-09-19] MEDS: HYDROGEN PEROXIDE 3% 118 ML BOTTLE TP SCH ×3 (09:00→21:12)
--- NOTE | 2019-09-19 09:25 | NUR ---
Received pt. in bed, non-communicative. In no distress. All due medications administered as ordered. Kept pt. clean and dry. Turned and repositioned for comfort. Skin care rendered. Safety measures in place, all alarms working. Will continue to monitor accordingly.
[2019-09-19] MEDS: MULTIVIT, IRON, MIN NO. 8, FA TABLET GT SCH (20:05)
[2019-09-19] MEDS: NEOMY/BACITRA/POLYMYXIN B OINT UD PACKET TP SCH (20:05)
[2019-09-19] MEDS: ATORVASTATIN 10 MG TABLET GT SCH (20:05)
[2019-09-19 20:41] VITALS: BP 103/65
[2019-09-20] MEDS: ALBUTEROL SULFATE 2.5 MG/3 ML NEBU NEB SCH ×6 (03:06→22:30)
[2019-09-20] MEDS: IPRATROPIUM BROMIDE 0.5 MG/2.5 ML NEBU NEB SCH ×6 (03:06→22:30)
[2019-09-20] MEDS: JEVITY 1.2 1000 ML LIQUID GT PRN (03:41)
[2019-09-20] MEDS: CHOLECALCIFEROL 1,000 UNIT TABLET GT SCH (05:43)
[2019-09-20] MEDS: BUDESONIDE 0.5 MG/2 ML NEBU NEB SCH ×2 (07:20→19:35)
[2019-09-20] MEDS: HYDROGEN PEROXIDE 3% 118 ML BOTTLE TP SCH (07:20)
[2019-09-20 08:00] VITALS: BP 120/67
[2019-09-20] MEDS: CALCIUM CARBONATE 500 MG TABLET GT SCH ×2 (08:19→20:12)
[2019-09-20] MEDS: Z GUARD REMEDY PASTE 57 GM TUBE TOP SCH ×2 (08:19→20:12)
[2019-09-20] MEDS: DOCUSATE SODIUM 100 MG/10 ML LIQUID UDC GT SCH (08:19)
[2019-09-20] MEDS: BACLOFEN 10 MG TABLET GT SCH ×2 (08:19→20:12)
[2019-09-20] MEDS: NUTRISOURCE FIBER 4 GM PACKET GT SCH ×2 (08:19→20:12)
[2019-09-20] MEDS: NEOMY/BACITRA/POLYMYXIN B OINT UD PACKET TP SCH (20:12)
[2019-09-20] MEDS: ATORVASTATIN 10 MG TABLET GT SCH (20:12)
[2019-09-20 20:46] VITALS: BP 104/67
[2019-09-21] MEDS: IPRATROPIUM BROMIDE 0.5 MG/2.5 ML NEBU NEB SCH ×6 (03:04→22:30)
[2019-09-21] MEDS: ALBUTEROL SULFATE 2.5 MG/3 ML NEBU NEB SCH ×6 (03:04→22:30)
[2019-09-21] MEDS: JEVITY 1.2 1000 ML LIQUID GT PRN (03:47)
[2019-09-21] MEDS: CHOLECALCIFEROL 1,000 UNIT TABLET GT SCH (05:35)
[2019-09-21] MEDS: BUDESONIDE 0.5 MG/2 ML NEBU NEB SCH ×2 (07:44→18:05)
[2019-09-21 08:00] VITALS: BP 113/73
[2019-09-21 08:01] VITALS: BP 113/73
[2019-09-21] MEDS: BACLOFEN 10 MG TABLET GT SCH ×2 (08:54→20:00)
[2019-09-21] MEDS: CALCIUM CARBONATE 500 MG TABLET GT SCH ×2 (08:54→20:00)
[2019-09-21] MEDS: Z GUARD REMEDY PASTE 57 GM TUBE TOP SCH ×2 (08:54→20:00)
[2019-09-21] MEDS: NUTRISOURCE FIBER 4 GM PACKET GT SCH ×2 (08:54→20:00)
[2019-09-21] MEDS: DOCUSATE SODIUM 100 MG/10 ML LIQUID UDC GT SCH (08:54)
[2019-09-21] MEDS: HYDROGEN PEROXIDE 3% 118 ML BOTTLE TP SCH ×2 (11:00→20:00)
[2019-09-21] MEDS: NEOMY/BACITRA/POLYMYXIN B OINT UD PACKET TP SCH (19:58)
[2019-09-21] MEDS: ATORVASTATIN 10 MG TABLET GT SCH (20:00)
[2019-09-21] MEDS: MULTIVIT, IRON, MIN NO. 8, FA TABLET GT SCH (20:00)
[2019-09-21 20:08] VITALS: BP 153/91
[2019-09-22] MEDS: IPRATROPIUM BROMIDE 0.5 MG/2.5 ML NEBU NEB SCH ×6 (02:58→23:11)
[2019-09-22] MEDS: ALBUTEROL SULFATE 2.5 MG/3 ML NEBU NEB SCH ×6 (02:58→23:11)
[2019-09-22] MEDS: CHOLECALCIFEROL 1,000 UNIT TABLET GT SCH (05:31)
[2019-09-22] MEDS: BUDESONIDE 0.5 MG/2 ML NEBU NEB SCH ×2 (07:02→19:58)
[2019-09-22 08:00] VITALS: BP 129/70
[2019-09-22] MEDS: HYDROGEN PEROXIDE 3% 118 ML BOTTLE TP SCH ×2 (09:00→21:42)
[2019-09-22] MEDS: DOCUSATE SODIUM 100 MG/10 ML LIQUID UDC GT SCH (09:02)
[2019-09-22] MEDS: NUTRISOURCE FIBER 4 GM PACKET GT SCH ×2 (09:03→21:00)
[2019-09-22] MEDS: BACLOFEN 10 MG TABLET GT SCH ×2 (09:03→21:00)
[2019-09-22] MEDS: CALCIUM CARBONATE 500 MG TABLET GT SCH ×2 (09:04→21:00)
[2019-09-22] MEDS: Z GUARD REMEDY PASTE 57 GM TUBE TOP SCH ×2 (09:04→21:00)
--- NOTE | 2019-09-22 09:05 | NUR ---
Seen and examined by Myrtle pickett and with rebeccao.
[2019-09-22] MEDS: NEOMY/BACITRA/POLYMYXIN B OINT UD PACKET TP SCH (20:00)
[2019-09-22 20:05] VITALS: BP 111/65
[2019-09-22] MEDS: ATORVASTATIN 10 MG TABLET GT SCH (21:00)
[2019-09-23] MEDS: IPRATROPIUM BROMIDE 0.5 MG/2.5 ML NEBU NEB SCH ×6 (02:41→22:43)
[2019-09-23] MEDS: ALBUTEROL SULFATE 2.5 MG/3 ML NEBU NEB SCH ×6 (02:41→22:43)
[2019-09-23] MEDS: CHOLECALCIFEROL 1,000 UNIT TABLET GT SCH (06:02)
[2019-09-23] MEDS: JEVITY 1.2 1000 ML LIQUID GT PRN (06:03)
[2019-09-23] MEDS: BUDESONIDE 0.5 MG/2 ML NEBU NEB SCH ×2 (06:50→20:06)
[2019-09-23 08:01] VITALS: BP 140/74
[2019-09-23] MEDS: HYDROGEN PEROXIDE 3% 118 ML BOTTLE TP SCH ×2 (08:36→21:04)
[2019-09-23] MEDS: BACLOFEN 10 MG TABLET GT SCH ×2 (08:54→21:42)
[2019-09-23] MEDS: DOCUSATE SODIUM 100 MG/10 ML LIQUID UDC GT SCH (08:54)
[2019-09-23] MEDS: Z GUARD REMEDY PASTE 57 GM TUBE TOP SCH ×2 (08:55→21:43)
[2019-09-23] MEDS: NUTRISOURCE FIBER 4 GM PACKET GT SCH ×2 (08:55→21:42)
[2019-09-23] MEDS: CALCIUM CARBONATE 500 MG TABLET GT SCH ×2 (08:55→21:42)
--- NOTE | 2019-09-23 11:13 | NUR ---
SW received a voicemail message this morning from Kelin at Dr. Tariq's office [phone], who stated that Dr. Tariq will be coming in later today for patient's annual eye exam.
--- NOTE | 2019-09-23 14:50 | NUR ---
Patient seen today by Dr. Tariq for her annual eye exam. See optometry notes for details.
[2019-09-23] MEDS: NEOMY/BACITRA/POLYMYXIN B OINT UD PACKET TP SCH (20:00)
[2019-09-23 20:01] VITALS: BP 99/59
[2019-09-23] MEDS: ATORVASTATIN 10 MG TABLET GT SCH (21:42)
[2019-09-23] MEDS: MULTIVIT, IRON, MIN NO. 8, FA TABLET GT SCH (21:43)
[2019-09-24] MEDS: IPRATROPIUM BROMIDE 0.5 MG/2.5 ML NEBU NEB SCH ×6 (02:53→23:11)
[2019-09-24] MEDS: ALBUTEROL SULFATE 2.5 MG/3 ML NEBU NEB SCH ×6 (02:53→23:11)
[2019-09-24] MEDS: JEVITY 1.2 1000 ML LIQUID GT PRN (05:00)
[2019-09-24] MEDS: CHOLECALCIFEROL 1,000 UNIT TABLET GT SCH (06:05)
[2019-09-24] MEDS: BUDESONIDE 0.5 MG/2 ML NEBU NEB SCH ×2 (07:30→20:27)
[2019-09-24 08:01] VITALS: BP 115/67
[2019-09-24] MEDS: CALCIUM CARBONATE 500 MG TABLET GT SCH ×2 (08:09→21:21)
[2019-09-24] MEDS: DOCUSATE SODIUM 100 MG/10 ML LIQUID UDC GT SCH (08:09)
[2019-09-24] MEDS: NUTRISOURCE FIBER 4 GM PACKET GT SCH ×2 (08:09→21:21)
[2019-09-24] MEDS: BACLOFEN 10 MG TABLET GT SCH ×2 (08:09→21:21)
[2019-09-24] MEDS: Z GUARD REMEDY PASTE 57 GM TUBE TOP SCH ×2 (08:10→21:23)
[2019-09-24] MEDS: HYDROGEN PEROXIDE 3% 118 ML BOTTLE TP SCH ×2 (08:12→20:27)
--- NOTE | 2019-09-24 17:57 | NUR ---
Message left to Dione Garcia,pt's sister regarding the room transfer to [facility] b.
[2019-09-24] MEDS: NEOMY/BACITRA/POLYMYXIN B OINT UD PACKET TP SCH (20:00)
[2019-09-24] MEDS: ATORVASTATIN 10 MG TABLET GT SCH (21:21)
[2019-09-24 22:23] VITALS: BP 92/55
[2019-09-25] MEDS: IPRATROPIUM BROMIDE 0.5 MG/2.5 ML NEBU NEB SCH ×6 (02:31→23:10)
[2019-09-25] MEDS: ALBUTEROL SULFATE 2.5 MG/3 ML NEBU NEB SCH ×6 (02:31→23:10)
[2019-09-25] MEDS: JEVITY 1.2 1000 ML LIQUID GT PRN (05:31)
[2019-09-25] MEDS: CHOLECALCIFEROL 1,000 UNIT TABLET GT SCH (05:40)
[2019-09-25] MEDS: BUDESONIDE 0.5 MG/2 ML NEBU NEB SCH ×2 (07:52→20:03)
[2019-09-25] MEDS: HYDROGEN PEROXIDE 3% 118 ML BOTTLE TP SCH ×2 (09:00→20:03)
[2019-09-25] MEDS: DOCUSATE SODIUM 100 MG/10 ML LIQUID UDC GT SCH (09:19)
[2019-09-25] MEDS: CALCIUM CARBONATE 500 MG TABLET GT SCH ×2 (09:19→20:34)
[2019-09-25] MEDS: BACLOFEN 10 MG TABLET GT SCH ×2 (09:19→20:34)
[2019-09-25] MEDS: NUTRISOURCE FIBER 4 GM PACKET GT SCH ×2 (09:19→20:34)
[2019-09-25] MEDS: Z GUARD REMEDY PASTE 57 GM TUBE TOP SCH ×2 (09:20→20:36)
[2019-09-25 12:40] VITALS: BP 107/57
[2019-09-25] MEDS: COD LIVER OIL/ZINC OXIDE OINT 113 GM TUBE TP SCH ×2 (12:54→20:36)
--- NOTE | 2019-09-25 16:23 | NUR ---
3:40pm: JO-ANN called patient's sister Dione Garcia in order to review patient's preferred intensity of care. Present during this phone call were JESSICA Lucas and JESSICA Martell. Dione was on speaker phone. Patient's preferred intensity of care was reviewed with Dione and Dione expressed the following wishes: 1) Dione agreed to the following: antibiotics, Intravenous Fluids, artificial Enteral Hydration, artificial Enteral Nutrition, Transfer to acute hospital, and oxygen 2) Dione DOES NOT agree to the following: No CPR, no blood transfusions, no ventilator, no dialysis. Dione's wishes were witnessed by both JESSICA Lucas and JESSICA Martell, and accordingly filled out on the patient's preferred intensity of care. The preferred intensity of care was signed by both JESSICA Lucas and JESSICA Martell.
[2019-09-25] MEDS: ATORVASTATIN 10 MG TABLET GT SCH (20:34)
[2019-09-25] MEDS: MULTIVIT, IRON, MIN NO. 8, FA TABLET GT SCH (20:36)
[2019-09-25 20:52] VITALS: BP 122/72
[2019-09-26] MEDS: ALBUTEROL SULFATE 2.5 MG/3 ML NEBU NEB SCH ×5 (02:45→20:45)
[2019-09-26] MEDS: IPRATROPIUM BROMIDE 0.5 MG/2.5 ML NEBU NEB SCH ×5 (02:45→20:45)
[2019-09-26] MEDS: JEVITY 1.2 1000 ML LIQUID GT PRN (03:07)
[2019-09-26] MEDS: CHOLECALCIFEROL 1,000 UNIT TABLET GT SCH (05:34)
[2019-09-26] MEDS: BUDESONIDE 0.5 MG/2 ML NEBU NEB SCH ×2 (07:13→20:45)
[2019-09-26] MEDS: BACLOFEN 10 MG TABLET GT SCH ×2 (08:37→20:19)
[2019-09-26] MEDS: CALCIUM CARBONATE 500 MG TABLET GT SCH ×2 (08:37→20:19)
[2019-09-26] MEDS: NUTRISOURCE FIBER 4 GM PACKET GT SCH ×2 (08:37→20:19)
[2019-09-26] MEDS: DOCUSATE SODIUM 100 MG/10 ML LIQUID UDC GT SCH (08:37)
[2019-09-26] MEDS: Z GUARD REMEDY PASTE 57 GM TUBE TOP SCH ×2 (08:38→20:19)
[2019-09-26] MEDS: COD LIVER OIL/ZINC OXIDE OINT 113 GM TUBE TP SCH ×2 (08:38→20:19)
[2019-09-26] MEDS: HYDROGEN PEROXIDE 3% 118 ML BOTTLE TP SCH ×2 (09:00→21:00)
[2019-09-26 12:29] VITALS: BP 99/49
[2019-09-26] MEDS: ATORVASTATIN 10 MG TABLET GT SCH (20:19)
[2019-09-26 20:50] VITALS: BP 111/74
[2019-09-27] MEDS: IPRATROPIUM BROMIDE 0.5 MG/2.5 ML NEBU NEB SCH ×7 (00:10→23:44)
[2019-09-27] MEDS: ALBUTEROL SULFATE 2.5 MG/3 ML NEBU NEB SCH ×7 (00:10→23:44)
[2019-09-27] MEDS: JEVITY 1.2 1000 ML LIQUID GT PRN (03:55)
[2019-09-27] MEDS: CHOLECALCIFEROL 1,000 UNIT TABLET GT SCH (05:47)
[2019-09-27] MEDS: BUDESONIDE 0.5 MG/2 ML NEBU NEB SCH ×2 (07:40→20:05)
[2019-09-27] MEDS: DOCUSATE SODIUM 100 MG/10 ML LIQUID UDC GT SCH (08:43)
[2019-09-27] MEDS: BACLOFEN 10 MG TABLET GT SCH ×2 (08:43→21:45)
[2019-09-27] MEDS: NUTRISOURCE FIBER 4 GM PACKET GT SCH ×2 (08:44→21:45)
[2019-09-27] MEDS: Z GUARD REMEDY PASTE 57 GM TUBE TOP SCH ×2 (08:45→21:45)
[2019-09-27] MEDS: CALCIUM CARBONATE 500 MG TABLET GT SCH ×2 (08:45→21:45)
[2019-09-27] MEDS: COD LIVER OIL/ZINC OXIDE OINT 113 GM TUBE TP SCH ×2 (08:45→21:45)
[2019-09-27] MEDS: HYDROGEN PEROXIDE 3% 118 ML BOTTLE TP SCH ×2 (09:20→21:00)
[2019-09-27 12:02] VITALS: BP 134/77
--- NOTE | 2019-09-27 18:08 | NUR ---
new orders noted for redness around the trach site and rashes on the back of both ears,orders carried out.
[2019-09-27 20:04] VITALS: BP 117/83
[2019-09-27] MEDS: NEOMY/BACITRA/POLYMYXIN B OINT UD PACKET TP SCH (21:00)
[2019-09-27] MEDS: TRIAMCINOLONE ACET 0.1% CREAM 15 GM TUBE TP SCH (21:00)
[2019-09-27] MEDS: MULTIVIT, IRON, MIN NO. 8, FA TABLET GT SCH (21:45)
[2019-09-27] MEDS: ATORVASTATIN 10 MG TABLET GT SCH (21:45)
[2019-09-28] MEDS: ALBUTEROL SULFATE 2.5 MG/3 ML NEBU NEB SCH ×5 (03:57→19:50)
[2019-09-28] MEDS: IPRATROPIUM BROMIDE 0.5 MG/2.5 ML NEBU NEB SCH ×5 (03:57→19:50)
[2019-09-28] MEDS: JEVITY 1.2 1000 ML LIQUID GT PRN (03:59)
[2019-09-28] MEDS: CHOLECALCIFEROL 1,000 UNIT TABLET GT SCH (05:42)
[2019-09-28] MEDS: BUDESONIDE 0.5 MG/2 ML NEBU NEB SCH ×2 (07:33→19:50)
[2019-09-28 08:00] VITALS: BP 120/67
[2019-09-28] MEDS: DOCUSATE SODIUM 100 MG/10 ML LIQUID UDC GT SCH (08:30)
[2019-09-28] MEDS: NUTRISOURCE FIBER 4 GM PACKET GT SCH ×2 (08:31→21:41)
[2019-09-28] MEDS: BACLOFEN 10 MG TABLET GT SCH ×2 (08:31→21:41)
[2019-09-28] MEDS: COD LIVER OIL/ZINC OXIDE OINT 113 GM TUBE TP SCH ×2 (08:32→21:41)
[2019-09-28] MEDS: CALCIUM CARBONATE 500 MG TABLET GT SCH ×2 (08:32→21:41)
[2019-09-28] MEDS: Z GUARD REMEDY PASTE 57 GM TUBE TOP SCH ×2 (08:32→21:41)
[2019-09-28] MEDS: NEOMY/BACITRA/POLYMYXIN B OINT UD PACKET TP SCH ×2 (08:32→21:41)
[2019-09-28] MEDS: TRIAMCINOLONE ACET 0.1% CREAM 15 GM TUBE TP SCH ×2 (08:32→21:41)
[2019-09-28] MEDS: HYDROGEN PEROXIDE 3% 118 ML BOTTLE TP SCH ×2 (09:10→21:38)
[2019-09-28] MEDS: ATORVASTATIN 10 MG TABLET GT SCH (21:41)
[2019-09-28 23:00] VITALS: BP 125/84
[2019-09-29] MEDS: ALBUTEROL SULFATE 2.5 MG/3 ML NEBU NEB SCH ×7 (00:06→23:01)
[2019-09-29] MEDS: IPRATROPIUM BROMIDE 0.5 MG/2.5 ML NEBU NEB SCH ×7 (00:06→23:01)
[2019-09-29] MEDS: JEVITY 1.2 1000 ML LIQUID GT PRN (03:21)
[2019-09-29] MEDS: CHOLECALCIFEROL 1,000 UNIT TABLET GT SCH (05:43)
[2019-09-29] MEDS: BUDESONIDE 0.5 MG/2 ML NEBU NEB SCH ×2 (07:30→19:58)
[2019-09-29 08:00] VITALS: BP 146/70
[2019-09-29] MEDS: NEOMY/BACITRA/POLYMYXIN B OINT UD PACKET TP SCH ×2 (09:02→21:02)
[2019-09-29] MEDS: TRIAMCINOLONE ACET 0.1% CREAM 15 GM TUBE TP SCH ×2 (09:02→21:03)
[2019-09-29] MEDS: BACLOFEN 10 MG TABLET GT SCH ×2 (09:02→20:59)
[2019-09-29] MEDS: DOCUSATE SODIUM 100 MG/10 ML LIQUID UDC GT SCH (09:02)
[2019-09-29] MEDS: Z GUARD REMEDY PASTE 57 GM TUBE TOP SCH ×2 (09:02→21:03)
[2019-09-29] MEDS: COD LIVER OIL/ZINC OXIDE OINT 113 GM TUBE TP SCH ×2 (09:02→21:01)
[2019-09-29] MEDS: CALCIUM CARBONATE 500 MG TABLET GT SCH ×2 (09:02→21:02)
[2019-09-29] MEDS: NUTRISOURCE FIBER 4 GM PACKET GT SCH ×2 (09:02→21:00)
[2019-09-29] MEDS: HYDROGEN PEROXIDE 3% 118 ML BOTTLE TP SCH ×2 (09:32→21:02)
[2019-09-29 19:52] VITALS: BP 146/88
--- NOTE | 2019-09-29 20:00 | NUR ---
VSS 97.6-72-18 BP 146/88. SATS 99%. COLOR PINK IN THE FACE. SKIN WARM DRY AND INTACT. TRACH TO 28% TRACH MIST MASK. NO ACTIVE ROM NOTED AT THIS TIME. GTUBE INTACT FOR JEVITY 1.2 @ 45 CC/HOUR. INCONTINENT OF BOWEL AND BLADDER. ABDOMEN SOFTLY DISTENDED WITH +BOWEL SOUNDS. NO SIGNS OF ACUTE CARDIAC/RESPIRATORY DISTRESS OR SUPPRESSION.
[2019-09-29] MEDS: ATORVASTATIN 10 MG TABLET GT SCH (20:59)
[2019-09-29] MEDS: MULTIVIT, IRON, MIN NO. 8, FA TABLET GT SCH (21:03)
[2019-09-30] MEDS: ALBUTEROL SULFATE 2.5 MG/3 ML NEBU NEB SCH ×6 (02:30→22:50)
[2019-09-30] MEDS: IPRATROPIUM BROMIDE 0.5 MG/2.5 ML NEBU NEB SCH ×6 (02:30→22:50)
[2019-09-30] MEDS: CHOLECALCIFEROL 1,000 UNIT TABLET GT SCH (06:49)
[2019-09-30] MEDS: BUDESONIDE 0.5 MG/2 ML NEBU NEB SCH ×2 (07:57→20:21)
[2019-09-30] MEDS: DOCUSATE SODIUM 100 MG/10 ML LIQUID UDC GT SCH (08:35)
[2019-09-30] MEDS: BACLOFEN 10 MG TABLET GT SCH ×2 (08:35→21:20)
[2019-09-30] MEDS: NUTRISOURCE FIBER 4 GM PACKET GT SCH ×2 (08:36→21:20)
[2019-09-30] MEDS: CALCIUM CARBONATE 500 MG TABLET GT SCH ×2 (08:36→21:20)
[2019-09-30] MEDS: NEOMY/BACITRA/POLYMYXIN B OINT UD PACKET TP SCH ×2 (08:38→21:21)
[2019-09-30] MEDS: TRIAMCINOLONE ACET 0.1% CREAM 15 GM TUBE TP SCH ×2 (08:38→21:21)
[2019-09-30] MEDS: Z GUARD REMEDY PASTE 57 GM TUBE TOP SCH ×2 (08:38→21:21)
[2019-09-30] MEDS: COD LIVER OIL/ZINC OXIDE OINT 113 GM TUBE TP SCH ×2 (08:38→21:21)
[2019-09-30] MEDS: HYDROGEN PEROXIDE 3% 118 ML BOTTLE TP SCH ×2 (09:59→20:21)
[2019-09-30 11:16] VITALS: BP 126/71
--- NOTE | 2019-09-30 14:44 | NUR ---
Pharmacy Update from Today's 09/30/19 IDT Meeting: VS: Temp 97.6 BP 146/88 HR 78 LABS: (from 08/20/19, no new labs) Wbc 5.5 H/H 14/41.7 Plt 149 Na 142 K 3.8 Cl 105 CO2 32 BUN/SCr 13/0.6 BS 113 Ca 8.8 MEDICATION USE REVIEWED: > Pt not on any anti-psych or anti-seizure medications > PRN MED USAGE: (Aug) Tylenol for pain used x 0 Tylenol for temp used x 0 Bisacodyl PRN x 5 NEW ORDERS NOTED: > NA Pt was reviewed and discussed in depth with no medication concerns or issues reported at this time and no further recs from rx at this time. Pt remains stable on current regimen, will continue to follow.
--- NOTE | 2019-09-30 14:50 | NUR ---
INTERDISCIPLINARY PLAN OF CARE CONFERENCE was held today. Patient's family lives [id number], and they are not able to attend the monthly meetings. Dr. Underwood and the Interdisciplinary Team reviewed the current plan of care in detail. RN reported on patient's medical condition. See RN IDT conference notes. No major changes in condition were reported. See also all other disciplines IDT notes and physician's progress notes for additional details.
[2019-09-30 20:00] VITALS: BP 116/70
[2019-09-30] MEDS: ATORVASTATIN 10 MG TABLET GT SCH (21:20)
[2019-10-01] MEDS: ALBUTEROL SULFATE 2.5 MG/3 ML NEBU NEB SCH ×6 (02:50→23:38)
[2019-10-01] MEDS: IPRATROPIUM BROMIDE 0.5 MG/2.5 ML NEBU NEB SCH ×6 (02:50→23:38)
[2019-10-01] MEDS: JEVITY 1.2 1000 ML LIQUID GT PRN (04:07)
[2019-10-01] MEDS: CHOLECALCIFEROL 1,000 UNIT TABLET GT SCH (05:40)
[2019-10-01 08:00] VITALS: BP 126/67
[2019-10-01] MEDS: BUDESONIDE 0.5 MG/2 ML NEBU NEB SCH ×2 (08:10→20:30)
[2019-10-01] MEDS: BACLOFEN 10 MG TABLET GT SCH ×2 (09:07→20:41)
[2019-10-01] MEDS: NUTRISOURCE FIBER 4 GM PACKET GT SCH ×2 (09:07→20:41)
[2019-10-01] MEDS: DOCUSATE SODIUM 100 MG/10 ML LIQUID UDC GT SCH (09:07)
[2019-10-01] MEDS: COD LIVER OIL/ZINC OXIDE OINT 113 GM TUBE TP SCH ×2 (09:08→20:41)
[2019-10-01] MEDS: CALCIUM CARBONATE 500 MG TABLET GT SCH ×2 (09:08→20:41)
[2019-10-01] MEDS: Z GUARD REMEDY PASTE 57 GM TUBE TOP SCH ×2 (09:08→20:41)
[2019-10-01] MEDS: TRIAMCINOLONE ACET 0.1% CREAM 15 GM TUBE TP SCH ×2 (09:08→20:41)
[2019-10-01] MEDS: NEOMY/BACITRA/POLYMYXIN B OINT UD PACKET TP SCH ×2 (09:08→20:41)
[2019-10-01] MEDS: HYDROGEN PEROXIDE 3% 118 ML BOTTLE TP SCH ×2 (10:30→21:35)
[2019-10-01 20:22] VITALS: BP 132/80
[2019-10-01] MEDS: ATORVASTATIN 10 MG TABLET GT SCH (20:41)
[2019-10-01] MEDS: MULTIVIT, IRON, MIN NO. 8, FA TABLET GT SCH (20:41)
[2019-10-02] MEDS: JEVITY 1.2 1000 ML LIQUID GT PRN (01:51)
[2019-10-02] MEDS: IPRATROPIUM BROMIDE 0.5 MG/2.5 ML NEBU NEB SCH ×6 (03:23→23:35)
[2019-10-02] MEDS: ALBUTEROL SULFATE 2.5 MG/3 ML NEBU NEB SCH ×6 (03:23→23:35)
[2019-10-02] MEDS: CHOLECALCIFEROL 1,000 UNIT TABLET GT SCH (06:13)
[2019-10-02] MEDS: BUDESONIDE 0.5 MG/2 ML NEBU NEB SCH ×2 (07:53→20:40)
[2019-10-02 08:00] VITALS: BP 107/71
[2019-10-02] MEDS: COD LIVER OIL/ZINC OXIDE OINT 113 GM TUBE TP SCH ×2 (08:07→21:32)
[2019-10-02] MEDS: DOCUSATE SODIUM 100 MG/10 ML LIQUID UDC GT SCH (08:07)
[2019-10-02] MEDS: Z GUARD REMEDY PASTE 57 GM TUBE TOP SCH ×2 (08:07→21:32)
[2019-10-02] MEDS: CALCIUM CARBONATE 500 MG TABLET GT SCH ×2 (08:07→21:32)
[2019-10-02] MEDS: NUTRISOURCE FIBER 4 GM PACKET GT SCH ×2 (08:07→21:32)
[2019-10-02] MEDS: BACLOFEN 10 MG TABLET GT SCH ×2 (08:07→21:32)
[2019-10-02] MEDS: TRIAMCINOLONE ACET 0.1% CREAM 15 GM TUBE TP SCH ×2 (08:08→21:33)
[2019-10-02] MEDS: NEOMY/BACITRA/POLYMYXIN B OINT UD PACKET TP SCH ×2 (08:08→21:33)
[2019-10-02] MEDS: HYDROGEN PEROXIDE 3% 118 ML BOTTLE TP SCH ×2 (11:38→21:00)
[2019-10-02 20:30] VITALS: BP 118/86
[2019-10-02] MEDS: ATORVASTATIN 10 MG TABLET GT SCH (21:32)
[2019-10-03] MEDS: ALBUTEROL SULFATE 2.5 MG/3 ML NEBU NEB SCH ×6 (03:36→23:19)
[2019-10-03] MEDS: IPRATROPIUM BROMIDE 0.5 MG/2.5 ML NEBU NEB SCH ×6 (03:36→23:19)
[2019-10-03] MEDS: JEVITY 1.2 1000 ML LIQUID GT PRN (04:00)
[2019-10-03] MEDS: CHOLECALCIFEROL 1,000 UNIT TABLET GT SCH (06:06)
[2019-10-03] MEDS: BUDESONIDE 0.5 MG/2 ML NEBU NEB SCH ×2 (07:23→19:45)
[2019-10-03 08:00] VITALS: BP 129/74
[2019-10-03] MEDS: DOCUSATE SODIUM 100 MG/10 ML LIQUID UDC GT SCH (08:09)
[2019-10-03] MEDS: NUTRISOURCE FIBER 4 GM PACKET GT SCH ×2 (08:09→21:26)
[2019-10-03] MEDS: BACLOFEN 10 MG TABLET GT SCH ×2 (08:09→21:26)
[2019-10-03] MEDS: CALCIUM CARBONATE 500 MG TABLET GT SCH ×2 (08:10→21:26)
[2019-10-03] MEDS: NEOMY/BACITRA/POLYMYXIN B OINT UD PACKET TP SCH ×2 (08:10→21:26)
[2019-10-03] MEDS: COD LIVER OIL/ZINC OXIDE OINT 113 GM TUBE TP SCH ×2 (08:10→21:26)
[2019-10-03] MEDS: Z GUARD REMEDY PASTE 57 GM TUBE TOP SCH ×2 (08:10→21:26)
[2019-10-03] MEDS: TRIAMCINOLONE ACET 0.1% CREAM 15 GM TUBE TP SCH ×2 (08:10→21:26)
[2019-10-03] MEDS: HYDROGEN PEROXIDE 3% 118 ML BOTTLE TP SCH ×2 (09:00→21:56)
[2019-10-03 20:59] VITALS: BP 115/81
[2019-10-03] MEDS: ATORVASTATIN 10 MG TABLET GT SCH (21:26)
[2019-10-03] MEDS: MULTIVIT, IRON, MIN NO. 8, FA TABLET GT SCH (21:26)
[2019-10-04] MEDS: JEVITY 1.2 1000 ML LIQUID GT PRN (01:25)
[2019-10-04] MEDS: IPRATROPIUM BROMIDE 0.5 MG/2.5 ML NEBU NEB SCH ×6 (03:30→23:19)
[2019-10-04] MEDS: ALBUTEROL SULFATE 2.5 MG/3 ML NEBU NEB SCH ×6 (03:30→23:19)
[2019-10-04] MEDS: CHOLECALCIFEROL 1,000 UNIT TABLET GT SCH (05:41)
[2019-10-04] MEDS: BUDESONIDE 0.5 MG/2 ML NEBU NEB SCH ×2 (08:15→19:04)
[2019-10-04 08:30] VITALS: BP 147/70
[2019-10-04] MEDS: HYDROGEN PEROXIDE 3% 118 ML BOTTLE TP SCH ×2 (09:00→21:00)
[2019-10-04] MEDS: NUTRISOURCE FIBER 4 GM PACKET GT SCH ×2 (09:22→21:07)
[2019-10-04] MEDS: COD LIVER OIL/ZINC OXIDE OINT 113 GM TUBE TP SCH ×2 (09:22→21:07)
[2019-10-04] MEDS: BACLOFEN 10 MG TABLET GT SCH ×2 (09:22→21:07)
[2019-10-04] MEDS: CALCIUM CARBONATE 500 MG TABLET GT SCH ×2 (09:22→21:07)
[2019-10-04] MEDS: Z GUARD REMEDY PASTE 57 GM TUBE TOP SCH ×2 (09:22→21:07)
[2019-10-04] MEDS: DOCUSATE SODIUM 100 MG/10 ML LIQUID UDC GT SCH (09:22)
[2019-10-04] MEDS: TRIAMCINOLONE ACET 0.1% CREAM 15 GM TUBE TP SCH ×2 (09:23→21:07)
[2019-10-04] MEDS: NEOMY/BACITRA/POLYMYXIN B OINT UD PACKET TP SCH ×2 (09:23→21:07)
[2019-10-04 20:02] VITALS: BP 118/80
[2019-10-04] MEDS: ATORVASTATIN 10 MG TABLET GT SCH (21:07)
[2019-10-05] MEDS: ALBUTEROL SULFATE 2.5 MG/3 ML NEBU NEB SCH ×6 (03:30→23:36)
[2019-10-05] MEDS: IPRATROPIUM BROMIDE 0.5 MG/2.5 ML NEBU NEB SCH ×6 (03:30→23:36)
[2019-10-05] MEDS: JEVITY 1.2 1000 ML LIQUID GT PRN (03:40)
[2019-10-05] MEDS: CHOLECALCIFEROL 1,000 UNIT TABLET GT SCH (05:39)
[2019-10-05] MEDS: BUDESONIDE 0.5 MG/2 ML NEBU NEB SCH ×2 (07:28→19:39)
[2019-10-05 07:30] VITALS: BP 123/64
[2019-10-05 08:00] VITALS: BP 123/60
[2019-10-05] MEDS: HYDROGEN PEROXIDE 3% 118 ML BOTTLE TP SCH ×2 (08:34→21:14)
[2019-10-05] MEDS: NEOMY/BACITRA/POLYMYXIN B OINT UD PACKET TP SCH ×2 (09:05→20:36)
[2019-10-05] MEDS: DOCUSATE SODIUM 100 MG/10 ML LIQUID UDC GT SCH (09:05)
[2019-10-05] MEDS: TRIAMCINOLONE ACET 0.1% CREAM 15 GM TUBE TP SCH ×2 (09:05→20:36)
[2019-10-05] MEDS: BACLOFEN 10 MG TABLET GT SCH ×2 (09:05→20:36)
[2019-10-05] MEDS: NUTRISOURCE FIBER 4 GM PACKET GT SCH ×2 (09:05→20:36)
[2019-10-05] MEDS: Z GUARD REMEDY PASTE 57 GM TUBE TOP SCH ×2 (09:05→20:36)
[2019-10-05] MEDS: CALCIUM CARBONATE 500 MG TABLET GT SCH ×2 (09:05→20:36)
[2019-10-05] MEDS: COD LIVER OIL/ZINC OXIDE OINT 113 GM TUBE TP SCH ×2 (09:05→20:36)
[2019-10-05 09:45] VITALS: BP 123/64
--- NOTE | 2019-10-05 10:30 | NUR ---
NEW ORDERS CARRIED OUT FROM DR. DOMINGUEZ DUE TO TEMP 95.6 FF RECTALLY NOT IMPROVED WITH LOCAL MEASURES LIKE EXTRA BLANKETS,SOCKS AND MITTENS AND HAT AND ADJUSTING ROOM TEMP. AND ORDERS CARRIED OUT.
[2019-10-05 11:31] LABS: CREATININE 0.5 mg/dL (0.6-1.3); POTASSIUM 4.2 mmol/L (3.5-5.1)
[2019-10-05 11:37] LABS: BASOPHILS % (AUTO) 0.7 % (0.0-2.0); EOSINOPHILS # (AUTO) 0.4 K/uL (0.0-0.7); EOSINOPHILS % (AUTO) 7.5 % (0.0-7.0); HEMATOCRIT 45.3 % (31.2-41.9); HEMOGLOBIN 15.4 g/dL (10.9-14.3); LYMPHOCYTES # (AUTO) 1.4 K/uL (20.0-40.0); LYMPHOCYTES % (AUTO) 25.6 % (20.5-51.5); MEAN CORPUSCULAR HEMOGLOBIN 32.7 uug (24.7-32.8); MEAN CORPUSCULAR HGB CONC 34 g/dL (32.3-35.6); MEAN CORPUSCULAR VOLUME 95.8 fL (75.5-95.3); MONOCYTES # (AUTO) 0.6 K/uL (2.0-10.0); MONOCYTES % (AUTO) 11.1 % (0.0-11.0); NEUTROPHILS # (AUTO) 3.1 K/uL (1.8-8.9); NEUTROPHILS % (AUTO) 55.1 % (38.5-71.5); PLATELET COUNT (AUTO) 159 K/uL (179-408); RED BLOOD CELL COUNT(AUTO) 4.73 MIL/uL (3.63-4.92); WHITE BLOOD COUNT (AUTO) 5.6 K/uL (3.8-11.8)
[2019-10-05 15:12] LABS: *BILIRUBIN,URIN NEGATIVE (NEGATIVE); *BLOOD, URINE 3+ (NEGATIVE); *CLARITY,URINE SLIGHTLY CLOUDY (CLEAR); *KETONES,URINE NEGATIVE (NEGATIVE); *UROBILINOGEN,URINE 0.2 E.U./dl (NORMAL); LEUKOCYTE ESTERASE ,URINE NEGATIVE (NEGATIVE); NITRITE, URINE NEGATIVE (NEGATIVE); UGLUCOSE NEGATIVE (NEGATIVE)
[2019-10-05 15:26] LABS: *COLOR,URINE YELLOW (YELLOW)
[2019-10-05 15:27] LABS: SQUAMOUS EPITHELIAL CELL,UR FEW /HPF (NONE SEEN)
[2019-10-05 15:29] LABS: URINE AMORPHOUS URATE MANY /HPF; WBC,URINE 0-3 /HPF (0-3)
[2019-10-05 19:43] VITALS: BP 119/68
[2019-10-05] MEDS: ATORVASTATIN 10 MG TABLET GT SCH (20:36)
[2019-10-05] MEDS: MULTIVIT, IRON, MIN NO. 8, FA TABLET GT SCH (20:36)
[2019-10-06] MEDS: JEVITY 1.2 1000 ML LIQUID GT PRN (03:02)
[2019-10-06] MEDS: IPRATROPIUM BROMIDE 0.5 MG/2.5 ML NEBU NEB SCH ×6 (03:10→23:35)
[2019-10-06] MEDS: ALBUTEROL SULFATE 2.5 MG/3 ML NEBU NEB SCH ×6 (03:11→23:35)
[2019-10-06] MEDS: CHOLECALCIFEROL 1,000 UNIT TABLET GT SCH (05:33)
[2019-10-06] MEDS: BUDESONIDE 0.5 MG/2 ML NEBU NEB SCH ×2 (07:30→20:30)
[2019-10-06 08:00] VITALS: BP 134/81
[2019-10-06] MEDS: HYDROGEN PEROXIDE 3% 118 ML BOTTLE TP SCH ×2 (08:20→20:34)
[2019-10-06] MEDS: DOCUSATE SODIUM 100 MG/10 ML LIQUID UDC GT SCH (09:21)
[2019-10-06] MEDS: BACLOFEN 10 MG TABLET GT SCH ×2 (09:21→21:00)
[2019-10-06] MEDS: NUTRISOURCE FIBER 4 GM PACKET GT SCH ×2 (09:22→21:00)
[2019-10-06] MEDS: CALCIUM CARBONATE 500 MG TABLET GT SCH ×2 (09:24→21:00)
[2019-10-06] MEDS: COD LIVER OIL/ZINC OXIDE OINT 113 GM TUBE TP SCH ×2 (09:24→21:00)
[2019-10-06] MEDS: Z GUARD REMEDY PASTE 57 GM TUBE TOP SCH ×2 (09:24→21:00)
[2019-10-06] MEDS: TRIAMCINOLONE ACET 0.1% CREAM 15 GM TUBE TP SCH ×2 (09:24→21:00)
[2019-10-06] MEDS: NEOMY/BACITRA/POLYMYXIN B OINT UD PACKET TP SCH ×2 (09:24→21:00)
[2019-10-06 20:03] VITALS: BP 152/94
[2019-10-06] MEDS: ATORVASTATIN 10 MG TABLET GT SCH (21:00)
[2019-10-07] MEDS: IPRATROPIUM BROMIDE 0.5 MG/2.5 ML NEBU NEB SCH ×6 (02:34→23:21)
[2019-10-07] MEDS: ALBUTEROL SULFATE 2.5 MG/3 ML NEBU NEB SCH ×6 (02:34→23:21)
[2019-10-07] MEDS: CHOLECALCIFEROL 1,000 UNIT TABLET GT SCH (06:35)
[2019-10-07] MEDS: JEVITY 1.2 1000 ML LIQUID GT PRN (06:35)
[2019-10-07] MEDS: BUDESONIDE 0.5 MG/2 ML NEBU NEB SCH ×2 (07:48→19:53)
[2019-10-07 08:00] VITALS: BP 107/74
[2019-10-07] MEDS: BACLOFEN 10 MG TABLET GT SCH ×2 (08:28→21:07)
[2019-10-07] MEDS: DOCUSATE SODIUM 100 MG/10 ML LIQUID UDC GT SCH (08:28)
[2019-10-07] MEDS: CALCIUM CARBONATE 500 MG TABLET GT SCH ×2 (08:29→21:07)
[2019-10-07] MEDS: NUTRISOURCE FIBER 4 GM PACKET GT SCH ×2 (08:29→21:07)
[2019-10-07] MEDS: COD LIVER OIL/ZINC OXIDE OINT 113 GM TUBE TP SCH ×2 (08:29→21:07)
[2019-10-07] MEDS: Z GUARD REMEDY PASTE 57 GM TUBE TOP SCH ×2 (08:29→21:07)
[2019-10-07] MEDS: TRIAMCINOLONE ACET 0.1% CREAM 15 GM TUBE TP SCH ×2 (08:30→21:07)
[2019-10-07] MEDS: NEOMY/BACITRA/POLYMYXIN B OINT UD PACKET TP SCH ×2 (08:31→21:07)
[2019-10-07] MEDS: HYDROGEN PEROXIDE 3% 118 ML BOTTLE TP SCH ×2 (09:07→21:00)
[2019-10-07] MEDS: BISACODYL 10 MG SUPP.RECT RC PRN (18:26)
[2019-10-07 19:39] VITALS: BP 120/74
[2019-10-07] MEDS: ATORVASTATIN 10 MG TABLET GT SCH (21:07)
[2019-10-07] MEDS: MULTIVIT, IRON, MIN NO. 8, FA TABLET GT SCH (21:07)
[2019-10-08] MEDS: IPRATROPIUM BROMIDE 0.5 MG/2.5 ML NEBU NEB SCH ×6 (03:47→22:37)
[2019-10-08] MEDS: ALBUTEROL SULFATE 2.5 MG/3 ML NEBU NEB SCH ×6 (03:47→22:38)
[2019-10-08] MEDS: JEVITY 1.2 1000 ML LIQUID GT PRN (05:31)
[2019-10-08] MEDS: CHOLECALCIFEROL 1,000 UNIT TABLET GT SCH (05:31)
[2019-10-08] MEDS: BISACODYL 10 MG SUPP.RECT RC PRN (07:30)
[2019-10-08 08:00] VITALS: BP 114/70
--- NOTE | 2019-10-08 08:00 | NUR ---
patient in bed, temperature 93.6 ,HR 72, R 18, BP114/70, Elise Hugger applied as ordered. Will continue monitoring.
[2019-10-08] MEDS: BACLOFEN 10 MG TABLET GT SCH ×2 (08:11→20:08)
[2019-10-08] MEDS: CALCIUM CARBONATE 500 MG TABLET GT SCH ×2 (08:11→20:08)
[2019-10-08] MEDS: TRIAMCINOLONE ACET 0.1% CREAM 15 GM TUBE TP SCH ×2 (08:11→20:08)
[2019-10-08] MEDS: DOCUSATE SODIUM 100 MG/10 ML LIQUID UDC GT SCH (08:11)
[2019-10-08] MEDS: COD LIVER OIL/ZINC OXIDE OINT 113 GM TUBE TP SCH ×2 (08:11→20:08)
[2019-10-08] MEDS: Z GUARD REMEDY PASTE 57 GM TUBE TOP SCH ×2 (08:11→20:08)
[2019-10-08] MEDS: NUTRISOURCE FIBER 4 GM PACKET GT SCH ×2 (08:11→20:08)
[2019-10-08] MEDS: BUDESONIDE 0.5 MG/2 ML NEBU NEB SCH ×2 (08:12→19:06)
--- NOTE | 2019-10-08 09:00 | NUR ---
TEMPERATURE 96.5 AT THIS TIME, CONTINUE WITH ARTIS HUGGER.
[2019-10-08] MEDS: HYDROGEN PEROXIDE 3% 118 ML BOTTLE TP SCH ×2 (09:50→21:34)
[2019-10-08] MEDS: NEOMY/BACITRA/POLYMYXIN B OINT UD PACKET TP SCH ×2 (10:00→20:08)
--- NOTE | 2019-10-08 10:30 | NUR ---
PATIENT,S TEMPERATURE 97.7 AT THIS TIME, CONTINUES WITH ARTIS REZA, WILL CONTINUE MONITORING.
--- NOTE | 2019-10-08 13:00 | NUR ---
PT,S TEMP 98.0 AT THIS TIME, WILL CONTINUE MONITORING.
--- NOTE | 2019-10-08 19:21 | NUR ---
pt transfer to room 422 with the belongings,Dione asim's sister aware of the transfer.
[2019-10-08 20:00] VITALS: BP 120/75
[2019-10-08] MEDS: ATORVASTATIN 10 MG TABLET GT SCH (20:08)
[2019-10-09] MEDS: IPRATROPIUM BROMIDE 0.5 MG/2.5 ML NEBU NEB SCH ×6 (02:35→22:40)
[2019-10-09] MEDS: ALBUTEROL SULFATE 2.5 MG/3 ML NEBU NEB SCH ×6 (02:35→22:40)
[2019-10-09] MEDS: JEVITY 1.2 1000 ML LIQUID GT PRN (05:22)
[2019-10-09] MEDS: CHOLECALCIFEROL 1,000 UNIT TABLET GT SCH (05:36)
[2019-10-09] MEDS: BUDESONIDE 0.5 MG/2 ML NEBU NEB SCH ×2 (08:03→19:53)
[2019-10-09] MEDS: DOCUSATE SODIUM 100 MG/10 ML LIQUID UDC GT SCH (08:26)
[2019-10-09] MEDS: Z GUARD REMEDY PASTE 57 GM TUBE TOP SCH ×2 (08:27→21:43)
[2019-10-09] MEDS: NUTRISOURCE FIBER 4 GM PACKET GT SCH ×2 (08:27→21:43)
[2019-10-09] MEDS: BACLOFEN 10 MG TABLET GT SCH ×2 (08:27→21:43)
[2019-10-09] MEDS: CALCIUM CARBONATE 500 MG TABLET GT SCH ×2 (08:27→21:43)
[2019-10-09] MEDS: TRIAMCINOLONE ACET 0.1% CREAM 15 GM TUBE TP SCH ×2 (08:28→21:43)
[2019-10-09] MEDS: NEOMY/BACITRA/POLYMYXIN B OINT UD PACKET TP SCH ×2 (08:28→21:44)
[2019-10-09] MEDS: HYDROGEN PEROXIDE 3% 118 ML BOTTLE TP SCH ×2 (09:50→21:43)
[2019-10-09 10:49] VITALS: BP 100/66
[2019-10-09 20:00] VITALS: BP 119/65
[2019-10-09] MEDS: ATORVASTATIN 10 MG TABLET GT SCH (21:43)
[2019-10-09] MEDS: MULTIVIT, IRON, MIN NO. 8, FA TABLET GT SCH (21:43)
[2019-10-10] MEDS: ALBUTEROL SULFATE 2.5 MG/3 ML NEBU NEB SCH ×6 (02:40→22:50)
[2019-10-10] MEDS: IPRATROPIUM BROMIDE 0.5 MG/2.5 ML NEBU NEB SCH ×6 (02:40→22:50)
[2019-10-10] MEDS: JEVITY 1.2 1000 ML LIQUID GT PRN (05:00)
[2019-10-10] MEDS: CHOLECALCIFEROL 1,000 UNIT TABLET GT SCH (06:26)
[2019-10-10] MEDS: BUDESONIDE 0.5 MG/2 ML NEBU NEB SCH ×2 (07:34→20:23)
[2019-10-10] MEDS: BACLOFEN 10 MG TABLET GT SCH ×2 (08:22→21:09)
[2019-10-10] MEDS: CALCIUM CARBONATE 500 MG TABLET GT SCH ×2 (08:22→21:09)
[2019-10-10] MEDS: DOCUSATE SODIUM 100 MG/10 ML LIQUID UDC GT SCH (08:22)
[2019-10-10] MEDS: TRIAMCINOLONE ACET 0.1% CREAM 15 GM TUBE TP SCH ×2 (08:22→21:10)
[2019-10-10] MEDS: NEOMY/BACITRA/POLYMYXIN B OINT UD PACKET TP SCH ×2 (08:22→21:10)
[2019-10-10] MEDS: NUTRISOURCE FIBER 4 GM PACKET GT SCH ×2 (08:22→21:09)
[2019-10-10] MEDS: Z GUARD REMEDY PASTE 57 GM TUBE TOP SCH ×2 (08:22→21:10)
[2019-10-10] MEDS: HYDROGEN PEROXIDE 3% 118 ML BOTTLE TP SCH ×2 (09:00→20:24)
[2019-10-10 11:37] VITALS: BP 101/44
[2019-10-10 19:53] VITALS: BP 119/86
[2019-10-10] MEDS: ATORVASTATIN 10 MG TABLET GT SCH (21:09)
[2019-10-11] MEDS: ALBUTEROL SULFATE 2.5 MG/3 ML NEBU NEB SCH ×6 (03:45→23:20)
[2019-10-11] MEDS: IPRATROPIUM BROMIDE 0.5 MG/2.5 ML NEBU NEB SCH ×6 (03:45→23:20)
[2019-10-11] MEDS: CHOLECALCIFEROL 1,000 UNIT TABLET GT SCH (05:37)
[2019-10-11 08:00] VITALS: BP 123/56
[2019-10-11] MEDS: BUDESONIDE 0.5 MG/2 ML NEBU NEB SCH ×2 (08:11→19:00)
[2019-10-11] MEDS: Z GUARD REMEDY PASTE 57 GM TUBE TOP SCH ×2 (08:42→20:52)
[2019-10-11] MEDS: BACLOFEN 10 MG TABLET GT SCH ×2 (08:42→20:52)
[2019-10-11] MEDS: NUTRISOURCE FIBER 4 GM PACKET GT SCH ×2 (08:42→20:52)
[2019-10-11] MEDS: CALCIUM CARBONATE 500 MG TABLET GT SCH ×2 (08:42→20:52)
[2019-10-11] MEDS: DOCUSATE SODIUM 100 MG/10 ML LIQUID UDC GT SCH (08:42)
[2019-10-11] MEDS: TRIAMCINOLONE ACET 0.1% CREAM 15 GM TUBE TP SCH (08:43)
[2019-10-11] MEDS: NEOMY/BACITRA/POLYMYXIN B OINT UD PACKET TP SCH (08:43)
[2019-10-11] MEDS: HYDROGEN PEROXIDE 3% 118 ML BOTTLE TP SCH ×2 (09:00→21:35)
[2019-10-11 20:52] VITALS: BP 122/84
[2019-10-11] MEDS: MULTIVIT, IRON, MIN NO. 8, FA TABLET GT SCH (20:52)
[2019-10-11] MEDS: ATORVASTATIN 10 MG TABLET GT SCH (20:52)
[2019-10-12] MEDS: IPRATROPIUM BROMIDE 0.5 MG/2.5 ML NEBU NEB SCH ×6 (03:35→22:38)
[2019-10-12] MEDS: ALBUTEROL SULFATE 2.5 MG/3 ML NEBU NEB SCH ×6 (03:35→22:38)
[2019-10-12] MEDS: JEVITY 1.2 1000 ML LIQUID GT PRN (05:07)
[2019-10-12] MEDS: CHOLECALCIFEROL 1,000 UNIT TABLET GT SCH (05:33)
[2019-10-12] MEDS: BUDESONIDE 0.5 MG/2 ML NEBU NEB SCH ×2 (07:05→19:15)
[2019-10-12 08:05] VITALS: BP 112/60
[2019-10-12] MEDS: NUTRISOURCE FIBER 4 GM PACKET GT SCH ×2 (08:51→21:00)
[2019-10-12] MEDS: Z GUARD REMEDY PASTE 57 GM TUBE TOP SCH ×2 (08:51→21:01)
[2019-10-12] MEDS: BACLOFEN 10 MG TABLET GT SCH ×2 (08:51→21:00)
[2019-10-12] MEDS: DOCUSATE SODIUM 100 MG/10 ML LIQUID UDC GT SCH (08:51)
[2019-10-12] MEDS: CALCIUM CARBONATE 500 MG TABLET GT SCH ×2 (08:51→21:00)
[2019-10-12] MEDS: HYDROGEN PEROXIDE 3% 118 ML BOTTLE TP SCH ×2 (09:00→20:30)
[2019-10-12 20:21] VITALS: BP 113/63
[2019-10-12] MEDS: ATORVASTATIN 10 MG TABLET GT SCH (21:00)
[2019-10-13] MEDS: ALBUTEROL SULFATE 2.5 MG/3 ML NEBU NEB SCH ×6 (02:48→23:18)
[2019-10-13] MEDS: IPRATROPIUM BROMIDE 0.5 MG/2.5 ML NEBU NEB SCH ×6 (02:48→23:18)
[2019-10-13] MEDS: CHOLECALCIFEROL 1,000 UNIT TABLET GT SCH (06:04)
[2019-10-13] MEDS: JEVITY 1.2 1000 ML LIQUID GT PRN (07:00)
[2019-10-13] MEDS: BUDESONIDE 0.5 MG/2 ML NEBU NEB SCH ×2 (07:09→19:51)
[2019-10-13 08:07] VITALS: BP 127/83
[2019-10-13] MEDS: HYDROGEN PEROXIDE 3% 118 ML BOTTLE TP SCH ×2 (08:11→21:00)
[2019-10-13] MEDS: DOCUSATE SODIUM 100 MG/10 ML LIQUID UDC GT SCH (08:43)
[2019-10-13] MEDS: NUTRISOURCE FIBER 4 GM PACKET GT SCH ×2 (08:43→20:18)
[2019-10-13] MEDS: BACLOFEN 10 MG TABLET GT SCH ×2 (08:43→20:18)
[2019-10-13] MEDS: Z GUARD REMEDY PASTE 57 GM TUBE TOP SCH ×2 (08:44→20:18)
[2019-10-13] MEDS: CALCIUM CARBONATE 500 MG TABLET GT SCH ×2 (08:44→20:18)
[2019-10-13] MEDS: TRIAMCINOLONE ACET 0.1% CREAM 15 GM TUBE TP SCH ×2 (09:00→20:18)
[2019-10-13] MEDS: NYSTATIN CREAM 30 GM TUBE TP SCH ×2 (09:00→20:18)
[2019-10-13] MEDS: BISACODYL 10 MG SUPP.RECT RC PRN (18:37)
[2019-10-13] MEDS: MULTIVIT, IRON, MIN NO. 8, FA TABLET GT SCH (20:18)
[2019-10-13] MEDS: ATORVASTATIN 10 MG TABLET GT SCH (20:18)
[2019-10-13 21:15] VITALS: BP 140/81
[2019-10-14] MEDS: ALBUTEROL SULFATE 2.5 MG/3 ML NEBU NEB SCH ×6 (03:24→22:30)
[2019-10-14] MEDS: IPRATROPIUM BROMIDE 0.5 MG/2.5 ML NEBU NEB SCH ×6 (03:24→22:30)
[2019-10-14] MEDS: CHOLECALCIFEROL 1,000 UNIT TABLET GT SCH (06:33)
[2019-10-14] MEDS: JEVITY 1.2 1000 ML LIQUID GT PRN (06:49)
[2019-10-14] MEDS: BUDESONIDE 0.5 MG/2 ML NEBU NEB SCH ×2 (07:09→19:33)
[2019-10-14 08:06] VITALS: BP 114/75
[2019-10-14] MEDS: DOCUSATE SODIUM 100 MG/10 ML LIQUID UDC GT SCH (08:32)
[2019-10-14] MEDS: NUTRISOURCE FIBER 4 GM PACKET GT SCH ×2 (08:33→21:20)
[2019-10-14] MEDS: BACLOFEN 10 MG TABLET GT SCH ×2 (08:33→21:20)
[2019-10-14] MEDS: CALCIUM CARBONATE 500 MG TABLET GT SCH ×2 (08:34→21:20)
[2019-10-14] MEDS: NYSTATIN CREAM 30 GM TUBE TP SCH ×2 (08:34→21:21)
[2019-10-14] MEDS: Z GUARD REMEDY PASTE 57 GM TUBE TOP SCH ×2 (08:34→21:21)
[2019-10-14] MEDS: TRIAMCINOLONE ACET 0.1% CREAM 15 GM TUBE TP SCH ×2 (08:34→21:21)
[2019-10-14] MEDS: HYDROGEN PEROXIDE 3% 118 ML BOTTLE TP SCH ×2 (09:45→21:11)
[2019-10-14 20:20] VITALS: BP 110/72
[2019-10-14] MEDS: ATORVASTATIN 10 MG TABLET GT SCH (21:20)
[2019-10-15] MEDS: ALBUTEROL SULFATE 2.5 MG/3 ML NEBU NEB SCH ×6 (02:40→23:40)
[2019-10-15] MEDS: IPRATROPIUM BROMIDE 0.5 MG/2.5 ML NEBU NEB SCH ×6 (02:40→23:40)
[2019-10-15] MEDS: CHOLECALCIFEROL 1,000 UNIT TABLET GT SCH (05:53)
--- NOTE | 2019-10-15 06:55 | NUR ---
daniel cameron n.p. was in, no new orders.
[2019-10-15] MEDS: BUDESONIDE 0.5 MG/2 ML NEBU NEB SCH ×2 (07:02→19:33)
[2019-10-15] MEDS: JEVITY 1.2 1000 ML LIQUID GT PRN (07:06)
[2019-10-15 08:06] VITALS: BP 112/68
[2019-10-15] MEDS: Z GUARD REMEDY PASTE 57 GM TUBE TOP SCH ×2 (08:54→21:04)
[2019-10-15] MEDS: NYSTATIN CREAM 30 GM TUBE TP SCH ×2 (08:54→21:05)
[2019-10-15] MEDS: CALCIUM CARBONATE 500 MG TABLET GT SCH ×2 (08:54→21:03)
[2019-10-15] MEDS: TRIAMCINOLONE ACET 0.1% CREAM 15 GM TUBE TP SCH ×2 (08:54→21:04)
[2019-10-15] MEDS: DOCUSATE SODIUM 100 MG/10 ML LIQUID UDC GT SCH (08:54)
[2019-10-15] MEDS: NUTRISOURCE FIBER 4 GM PACKET GT SCH ×2 (08:54→21:03)
[2019-10-15] MEDS: BACLOFEN 10 MG TABLET GT SCH ×2 (08:54→21:03)
[2019-10-15] MEDS: HYDROGEN PEROXIDE 3% 118 ML BOTTLE TP SCH ×2 (09:00→21:23)
[2019-10-15 20:09] VITALS: BP 114/63
[2019-10-15] MEDS: ATORVASTATIN 10 MG TABLET GT SCH (21:03)
[2019-10-15] MEDS: MULTIVIT, IRON, MIN NO. 8, FA TABLET GT SCH (21:04)
[2019-10-16] MEDS: IPRATROPIUM BROMIDE 0.5 MG/2.5 ML NEBU NEB SCH ×6 (03:28→23:30)
[2019-10-16] MEDS: ALBUTEROL SULFATE 2.5 MG/3 ML NEBU NEB SCH ×6 (03:28→23:30)
[2019-10-16] MEDS: JEVITY 1.2 1000 ML LIQUID GT PRN (05:20)
[2019-10-16] MEDS: CHOLECALCIFEROL 1,000 UNIT TABLET GT SCH (05:34)
[2019-10-16] MEDS: BUDESONIDE 0.5 MG/2 ML NEBU NEB SCH ×2 (07:55→19:50)
[2019-10-16 08:07] VITALS: BP 105/73
[2019-10-16] MEDS: TRIAMCINOLONE ACET 0.1% CREAM 15 GM TUBE TP SCH ×2 (09:00→20:42)
[2019-10-16] MEDS: HYDROGEN PEROXIDE 3% 118 ML BOTTLE TP SCH ×2 (09:00→21:52)
[2019-10-16] MEDS: CALCIUM CARBONATE 500 MG TABLET GT SCH ×2 (09:00→20:38)
[2019-10-16] MEDS: DOCUSATE SODIUM 100 MG/10 ML LIQUID UDC GT SCH (09:00)
[2019-10-16] MEDS: BACLOFEN 10 MG TABLET GT SCH ×2 (09:00→20:38)
[2019-10-16] MEDS: Z GUARD REMEDY PASTE 57 GM TUBE TOP SCH ×2 (09:00→20:38)
[2019-10-16] MEDS: NYSTATIN CREAM 30 GM TUBE TP SCH ×2 (09:00→20:42)
[2019-10-16] MEDS: NUTRISOURCE FIBER 4 GM PACKET GT SCH ×2 (09:00→20:38)
[2019-10-16 20:18] VITALS: BP 111/67
[2019-10-16] MEDS: ATORVASTATIN 10 MG TABLET GT SCH (20:38)
[2019-10-17] MEDS: JEVITY 1.2 1000 ML LIQUID GT PRN (00:26)
[2019-10-17] MEDS: ALBUTEROL SULFATE 2.5 MG/3 ML NEBU NEB SCH ×6 (02:41→23:11)
[2019-10-17] MEDS: IPRATROPIUM BROMIDE 0.5 MG/2.5 ML NEBU NEB SCH ×6 (02:41→23:11)
[2019-10-17] MEDS: CHOLECALCIFEROL 1,000 UNIT TABLET GT SCH (06:55)
[2019-10-17] MEDS: BUDESONIDE 0.5 MG/2 ML NEBU NEB SCH ×2 (07:07→19:45)
[2019-10-17 08:07] VITALS: BP 130/70
[2019-10-17] MEDS: Z GUARD REMEDY PASTE 57 GM TUBE TOP SCH ×2 (08:55→20:32)
[2019-10-17] MEDS: DOCUSATE SODIUM 100 MG/10 ML LIQUID UDC GT SCH (08:55)
[2019-10-17] MEDS: NUTRISOURCE FIBER 4 GM PACKET GT SCH ×2 (08:55→20:32)
[2019-10-17] MEDS: BACLOFEN 10 MG TABLET GT SCH ×2 (08:55→20:32)
[2019-10-17] MEDS: TRIAMCINOLONE ACET 0.1% CREAM 15 GM TUBE TP SCH ×2 (08:55→20:32)
[2019-10-17] MEDS: NYSTATIN CREAM 30 GM TUBE TP SCH ×2 (08:55→20:32)
[2019-10-17] MEDS: CALCIUM CARBONATE 500 MG TABLET GT SCH ×2 (08:55→20:32)
[2019-10-17] MEDS: HYDROGEN PEROXIDE 3% 118 ML BOTTLE TP SCH ×2 (09:18→20:35)
[2019-10-17 20:10] VITALS: BP 112/59
[2019-10-17] MEDS: MULTIVIT, IRON, MIN NO. 8, FA TABLET GT SCH (20:32)
[2019-10-17] MEDS: ATORVASTATIN 10 MG TABLET GT SCH (20:32)
[2019-10-18] MEDS: JEVITY 1.2 1000 ML LIQUID GT PRN (01:19)
[2019-10-18] MEDS: ALBUTEROL SULFATE 2.5 MG/3 ML NEBU NEB SCH ×6 (03:14→23:05)
[2019-10-18] MEDS: IPRATROPIUM BROMIDE 0.5 MG/2.5 ML NEBU NEB SCH ×6 (03:14→23:05)
[2019-10-18] MEDS: CHOLECALCIFEROL 1,000 UNIT TABLET GT SCH (05:58)
[2019-10-18] MEDS: BUDESONIDE 0.5 MG/2 ML NEBU NEB SCH ×2 (07:49→19:19)
[2019-10-18] MEDS: HYDROGEN PEROXIDE 3% 118 ML BOTTLE TP SCH ×2 (07:49→21:00)
[2019-10-18 08:04] VITALS: BP 137/86
[2019-10-18] MEDS: BACLOFEN 10 MG TABLET GT SCH ×2 (08:31→20:43)
[2019-10-18] MEDS: NUTRISOURCE FIBER 4 GM PACKET GT SCH ×2 (08:31→20:43)
[2019-10-18] MEDS: NYSTATIN CREAM 30 GM TUBE TP SCH ×2 (08:31→20:43)
[2019-10-18] MEDS: DOCUSATE SODIUM 100 MG/10 ML LIQUID UDC GT SCH (08:31)
[2019-10-18] MEDS: TRIAMCINOLONE ACET 0.1% CREAM 15 GM TUBE TP SCH ×2 (08:31→20:43)
[2019-10-18] MEDS: CALCIUM CARBONATE 500 MG TABLET GT SCH ×2 (08:31→20:43)
[2019-10-18] MEDS: Z GUARD REMEDY PASTE 57 GM TUBE TOP SCH ×2 (08:32→20:43)
[2019-10-18 20:22] VITALS: BP 135/96
[2019-10-18] MEDS: ATORVASTATIN 10 MG TABLET GT SCH (20:43)
[2019-10-19] MEDS: JEVITY 1.2 1000 ML LIQUID GT PRN (01:10)
[2019-10-19] MEDS: ALBUTEROL SULFATE 2.5 MG/3 ML NEBU NEB SCH ×6 (03:41→22:41)
[2019-10-19] MEDS: IPRATROPIUM BROMIDE 0.5 MG/2.5 ML NEBU NEB SCH ×6 (03:41→22:41)
[2019-10-19] MEDS: CHOLECALCIFEROL 1,000 UNIT TABLET GT SCH (05:43)
[2019-10-19] MEDS: BUDESONIDE 0.5 MG/2 ML NEBU NEB SCH ×2 (07:44→19:51)
[2019-10-19 08:00] VITALS: BP 132/80
[2019-10-19] MEDS: BACLOFEN 10 MG TABLET GT SCH ×2 (09:21→20:48)
[2019-10-19] MEDS: DOCUSATE SODIUM 100 MG/10 ML LIQUID UDC GT SCH (09:21)
[2019-10-19] MEDS: TRIAMCINOLONE ACET 0.1% CREAM 15 GM TUBE TP SCH ×2 (09:22→20:49)
[2019-10-19] MEDS: NYSTATIN CREAM 30 GM TUBE TP SCH ×2 (09:22→20:49)
[2019-10-19] MEDS: CALCIUM CARBONATE 500 MG TABLET GT SCH ×2 (09:22→20:48)
[2019-10-19] MEDS: NUTRISOURCE FIBER 4 GM PACKET GT SCH ×2 (09:22→20:48)
[2019-10-19] MEDS: Z GUARD REMEDY PASTE 57 GM TUBE TOP SCH ×2 (09:22→20:48)
[2019-10-19] MEDS: HYDROGEN PEROXIDE 3% 118 ML BOTTLE TP SCH ×2 (09:45→21:23)
--- NOTE | 2019-10-19 12:15 | NUR ---
SEEN BY HALINA GREY N.P AND WITH NNO.
[2019-10-19] MEDS: ATORVASTATIN 10 MG TABLET GT SCH (20:48)
[2019-10-19] MEDS: MULTIVIT, IRON, MIN NO. 8, FA TABLET GT SCH (20:48)
[2019-10-19 20:55] VITALS: BP 113/73
[2019-10-20] MEDS: ALBUTEROL SULFATE 2.5 MG/3 ML NEBU NEB SCH ×6 (02:44→23:00)
[2019-10-20] MEDS: IPRATROPIUM BROMIDE 0.5 MG/2.5 ML NEBU NEB SCH ×6 (02:44→23:00)
[2019-10-20] MEDS: JEVITY 1.2 1000 ML LIQUID GT PRN (05:17)
[2019-10-20] MEDS: CHOLECALCIFEROL 1,000 UNIT TABLET GT SCH (05:39)
[2019-10-20] MEDS: BUDESONIDE 0.5 MG/2 ML NEBU NEB SCH ×2 (07:22→18:47)
[2019-10-20 08:00] VITALS: BP 100/81
--- NOTE | 2019-10-20 08:29 | NUR ---
PT. WAS SEEN AND EXAMINED BY GARETH Goode AND WITH BENNYO.
[2019-10-20] MEDS: HYDROGEN PEROXIDE 3% 118 ML BOTTLE TP SCH ×2 (09:00→20:49)
[2019-10-20] MEDS: CALCIUM CARBONATE 500 MG TABLET GT SCH ×2 (09:19→21:04)
[2019-10-20] MEDS: BACLOFEN 10 MG TABLET GT SCH ×2 (09:19→21:04)
[2019-10-20] MEDS: Z GUARD REMEDY PASTE 57 GM TUBE TOP SCH ×2 (09:19→21:05)
[2019-10-20] MEDS: NUTRISOURCE FIBER 4 GM PACKET GT SCH ×2 (09:19→21:04)
[2019-10-20] MEDS: DOCUSATE SODIUM 100 MG/10 ML LIQUID UDC GT SCH (09:19)
[2019-10-20] MEDS: NYSTATIN CREAM 30 GM TUBE TP SCH ×2 (09:20→21:05)
[2019-10-20] MEDS: TRIAMCINOLONE ACET 0.1% CREAM 15 GM TUBE TP SCH ×2 (09:20→21:05)
[2019-10-20 20:46] VITALS: BP 115/63
[2019-10-20] MEDS: ATORVASTATIN 10 MG TABLET GT SCH (21:04)
[2019-10-21] MEDS: IPRATROPIUM BROMIDE 0.5 MG/2.5 ML NEBU NEB SCH ×6 (03:00→22:46)
[2019-10-21] MEDS: ALBUTEROL SULFATE 2.5 MG/3 ML NEBU NEB SCH ×6 (03:00→22:46)
[2019-10-21] MEDS: CHOLECALCIFEROL 1,000 UNIT TABLET GT SCH (05:34)
[2019-10-21] MEDS: JEVITY 1.2 1000 ML LIQUID GT PRN (05:35)
[2019-10-21 08:00] VITALS: BP 127/81
[2019-10-21] MEDS: HYDROGEN PEROXIDE 3% 118 ML BOTTLE TP SCH ×2 (08:18→21:05)
[2019-10-21] MEDS: BUDESONIDE 0.5 MG/2 ML NEBU NEB SCH ×2 (08:18→19:09)
[2019-10-21] MEDS: DOCUSATE SODIUM 100 MG/10 ML LIQUID UDC GT SCH (08:45)
[2019-10-21] MEDS: BACLOFEN 10 MG TABLET GT SCH ×2 (08:49→21:50)
[2019-10-21] MEDS: NYSTATIN CREAM 30 GM TUBE TP SCH ×2 (08:50→21:51)
[2019-10-21] MEDS: Z GUARD REMEDY PASTE 57 GM TUBE TOP SCH ×2 (08:50→21:51)
[2019-10-21] MEDS: CALCIUM CARBONATE 500 MG TABLET GT SCH ×2 (08:50→21:50)
[2019-10-21] MEDS: TRIAMCINOLONE ACET 0.1% CREAM 15 GM TUBE TP SCH ×2 (08:50→21:51)
[2019-10-21] MEDS: NUTRISOURCE FIBER 4 GM PACKET GT SCH ×2 (08:50→21:50)
[2019-10-21 20:20] VITALS: BP 125/58
[2019-10-21] MEDS: ATORVASTATIN 10 MG TABLET GT SCH (21:50)
[2019-10-21] MEDS: MULTIVIT, IRON, MIN NO. 8, FA TABLET GT SCH (21:50)
[2019-10-22] MEDS: IPRATROPIUM BROMIDE 0.5 MG/2.5 ML NEBU NEB SCH ×6 (03:41→22:36)
[2019-10-22] MEDS: ALBUTEROL SULFATE 2.5 MG/3 ML NEBU NEB SCH ×6 (03:42→22:36)
[2019-10-22] MEDS: CHOLECALCIFEROL 1,000 UNIT TABLET GT SCH (05:47)
[2019-10-22] MEDS: BUDESONIDE 0.5 MG/2 ML NEBU NEB SCH ×2 (07:15→19:34)
[2019-10-22 08:00] VITALS: BP 130/75
[2019-10-22] MEDS: CALCIUM CARBONATE 500 MG TABLET GT SCH ×2 (08:48→21:12)
[2019-10-22] MEDS: NUTRISOURCE FIBER 4 GM PACKET GT SCH ×2 (08:48→21:12)
[2019-10-22] MEDS: NYSTATIN CREAM 30 GM TUBE TP SCH ×2 (08:48→21:13)
[2019-10-22] MEDS: BACLOFEN 10 MG TABLET GT SCH ×2 (08:48→21:12)
[2019-10-22] MEDS: Z GUARD REMEDY PASTE 57 GM TUBE TOP SCH ×2 (08:48→21:13)
[2019-10-22] MEDS: DOCUSATE SODIUM 100 MG/10 ML LIQUID UDC GT SCH (08:48)
[2019-10-22] MEDS: TRIAMCINOLONE ACET 0.1% CREAM 15 GM TUBE TP SCH ×2 (08:48→21:13)
[2019-10-22] MEDS: HYDROGEN PEROXIDE 3% 118 ML BOTTLE TP SCH ×2 (09:52→20:52)
[2019-10-22 20:57] VITALS: BP 148/64
[2019-10-22] MEDS: ATORVASTATIN 10 MG TABLET GT SCH (21:12)
[2019-10-23] MEDS: ALBUTEROL SULFATE 2.5 MG/3 ML NEBU NEB SCH ×6 (02:40→23:27)
[2019-10-23] MEDS: IPRATROPIUM BROMIDE 0.5 MG/2.5 ML NEBU NEB SCH ×6 (02:40→23:27)
[2019-10-23] MEDS: CHOLECALCIFEROL 1,000 UNIT TABLET GT SCH (05:45)
[2019-10-23] MEDS: BUDESONIDE 0.5 MG/2 ML NEBU NEB SCH ×2 (07:00→19:55)
[2019-10-23 08:00] VITALS: BP 124/67
[2019-10-23] MEDS: HYDROGEN PEROXIDE 3% 118 ML BOTTLE TP SCH ×2 (09:04→21:47)
[2019-10-23] MEDS: NUTRISOURCE FIBER 4 GM PACKET GT SCH ×2 (09:21→21:43)
[2019-10-23] MEDS: CALCIUM CARBONATE 500 MG TABLET GT SCH ×2 (09:21→21:43)
[2019-10-23] MEDS: DOCUSATE SODIUM 100 MG/10 ML LIQUID UDC GT SCH (09:21)
[2019-10-23] MEDS: Z GUARD REMEDY PASTE 57 GM TUBE TOP SCH ×2 (09:21→21:43)
[2019-10-23] MEDS: TRIAMCINOLONE ACET 0.1% CREAM 15 GM TUBE TP SCH ×2 (09:21→21:43)
[2019-10-23] MEDS: BACLOFEN 10 MG TABLET GT SCH ×2 (09:21→21:43)
[2019-10-23] MEDS: NYSTATIN CREAM 30 GM TUBE TP SCH ×2 (09:21→21:43)
[2019-10-23 20:34] VITALS: BP 96/50
[2019-10-23] MEDS: MULTIVIT, IRON, MIN NO. 8, FA TABLET GT SCH (21:43)
[2019-10-23] MEDS: ATORVASTATIN 10 MG TABLET GT SCH (21:43)
[2019-10-24] MEDS: IPRATROPIUM BROMIDE 0.5 MG/2.5 ML NEBU NEB SCH ×6 (02:40→23:04)
[2019-10-24] MEDS: ALBUTEROL SULFATE 2.5 MG/3 ML NEBU NEB SCH ×6 (02:40→23:04)
[2019-10-24] MEDS: CHOLECALCIFEROL 1,000 UNIT TABLET GT SCH (06:05)
[2019-10-24] MEDS: BUDESONIDE 0.5 MG/2 ML NEBU NEB SCH ×2 (07:15→18:55)
[2019-10-24] MEDS: BACLOFEN 10 MG TABLET GT SCH ×2 (08:31→20:33)
[2019-10-24] MEDS: DOCUSATE SODIUM 100 MG/10 ML LIQUID UDC GT SCH (08:31)
[2019-10-24] MEDS: Z GUARD REMEDY PASTE 57 GM TUBE TOP SCH ×2 (08:32→20:33)
[2019-10-24] MEDS: NUTRISOURCE FIBER 4 GM PACKET GT SCH ×2 (08:32→20:33)
[2019-10-24] MEDS: CALCIUM CARBONATE 500 MG TABLET GT SCH ×2 (08:32→20:33)
[2019-10-24] MEDS: TRIAMCINOLONE ACET 0.1% CREAM 15 GM TUBE TP SCH ×2 (08:33→20:33)
[2019-10-24] MEDS: NYSTATIN CREAM 30 GM TUBE TP SCH ×2 (08:33→20:33)
[2019-10-24] MEDS: HYDROGEN PEROXIDE 3% 118 ML BOTTLE TP SCH ×2 (09:00→21:23)
[2019-10-24 11:41] VITALS: BP 140/77
[2019-10-24] MEDS: JEVITY 1.2 1000 ML LIQUID GT PRN (17:18)
[2019-10-24 19:59] VITALS: BP 110/68
[2019-10-24] MEDS: ATORVASTATIN 10 MG TABLET GT SCH (20:33)
[2019-10-25] MEDS: IPRATROPIUM BROMIDE 0.5 MG/2.5 ML NEBU NEB SCH ×6 (02:52→23:01)
[2019-10-25] MEDS: ALBUTEROL SULFATE 2.5 MG/3 ML NEBU NEB SCH ×6 (02:52→23:01)
[2019-10-25] MEDS: CHOLECALCIFEROL 1,000 UNIT TABLET GT SCH (05:38)
[2019-10-25] MEDS: BISACODYL 10 MG SUPP.RECT RC PRN (06:15)
[2019-10-25] MEDS: BUDESONIDE 0.5 MG/2 ML NEBU NEB SCH ×2 (07:47→19:04)
[2019-10-25] MEDS: BACLOFEN 10 MG TABLET GT SCH ×2 (08:34→20:10)
[2019-10-25] MEDS: DOCUSATE SODIUM 100 MG/10 ML LIQUID UDC GT SCH (08:34)
[2019-10-25] MEDS: NUTRISOURCE FIBER 4 GM PACKET GT SCH ×2 (08:35→20:10)
[2019-10-25] MEDS: CALCIUM CARBONATE 500 MG TABLET GT SCH ×2 (08:35→20:10)
[2019-10-25] MEDS: NYSTATIN CREAM 30 GM TUBE TP SCH ×2 (08:35→20:10)
[2019-10-25] MEDS: TRIAMCINOLONE ACET 0.1% CREAM 15 GM TUBE TP SCH ×2 (08:35→20:10)
[2019-10-25] MEDS: Z GUARD REMEDY PASTE 57 GM TUBE TOP SCH ×2 (08:35→20:10)
[2019-10-25] MEDS: HYDROGEN PEROXIDE 3% 118 ML BOTTLE TP SCH ×2 (09:00→21:00)
--- NOTE | 2019-10-25 11:00 | NUR ---
Seen by Dr. Palomino, with no new orders.
[2019-10-25 11:44] VITALS: BP 95/54
[2019-10-25] MEDS: JEVITY 1.2 1000 ML LIQUID GT PRN (16:54)
[2019-10-25] MEDS: MULTIVIT, IRON, MIN NO. 8, FA TABLET GT SCH (20:10)
[2019-10-25] MEDS: ATORVASTATIN 10 MG TABLET GT SCH (20:10)
[2019-10-25 22:43] VITALS: BP 129/84
[2019-10-26] MEDS: ALBUTEROL SULFATE 2.5 MG/3 ML NEBU NEB SCH ×6 (03:24→22:38)
[2019-10-26] MEDS: IPRATROPIUM BROMIDE 0.5 MG/2.5 ML NEBU NEB SCH ×6 (03:24→22:38)
[2019-10-26] MEDS: CHOLECALCIFEROL 1,000 UNIT TABLET GT SCH (05:32)
[2019-10-26] MEDS: BUDESONIDE 0.5 MG/2 ML NEBU NEB SCH ×2 (07:59→19:35)
[2019-10-26 08:11] VITALS: BP 123/81
[2019-10-26] MEDS: BACLOFEN 10 MG TABLET GT SCH ×2 (09:31→20:11)
[2019-10-26] MEDS: DOCUSATE SODIUM 100 MG/10 ML LIQUID UDC GT SCH (09:31)
[2019-10-26] MEDS: NUTRISOURCE FIBER 4 GM PACKET GT SCH ×2 (09:32→20:11)
[2019-10-26] MEDS: CALCIUM CARBONATE 500 MG TABLET GT SCH ×2 (09:32→20:11)
[2019-10-26] MEDS: Z GUARD REMEDY PASTE 57 GM TUBE TOP SCH ×2 (09:32→20:11)
[2019-10-26] MEDS: TRIAMCINOLONE ACET 0.1% CREAM 15 GM TUBE TP SCH (09:32)
[2019-10-26] MEDS: NYSTATIN CREAM 30 GM TUBE TP SCH (09:32)
[2019-10-26] MEDS: HYDROGEN PEROXIDE 3% 118 ML BOTTLE TP SCH ×2 (11:00→20:38)
[2019-10-26] MEDS: JEVITY 1.2 1000 ML LIQUID GT PRN (15:55)
[2019-10-26] MEDS: ATORVASTATIN 10 MG TABLET GT SCH (20:11)
[2019-10-26 22:30] VITALS: BP 111/54
[2019-10-27] MEDS: IPRATROPIUM BROMIDE 0.5 MG/2.5 ML NEBU NEB SCH ×6 (03:10→22:56)
[2019-10-27] MEDS: ALBUTEROL SULFATE 2.5 MG/3 ML NEBU NEB SCH ×6 (03:10→22:56)
[2019-10-27] MEDS: CHOLECALCIFEROL 1,000 UNIT TABLET GT SCH (05:30)
[2019-10-27] MEDS: BUDESONIDE 0.5 MG/2 ML NEBU NEB SCH ×2 (07:07→18:52)
[2019-10-27 08:00] VITALS: BP 139/77
[2019-10-27] MEDS: DOCUSATE SODIUM 100 MG/10 ML LIQUID UDC GT SCH (08:15)
[2019-10-27] MEDS: BACLOFEN 10 MG TABLET GT SCH ×2 (08:15→20:52)
[2019-10-27] MEDS: NUTRISOURCE FIBER 4 GM PACKET GT SCH ×2 (08:16→20:52)
[2019-10-27] MEDS: CALCIUM CARBONATE 500 MG TABLET GT SCH ×2 (08:16→20:52)
[2019-10-27] MEDS: Z GUARD REMEDY PASTE 57 GM TUBE TOP SCH ×2 (08:16→20:53)
[2019-10-27] MEDS: HYDROGEN PEROXIDE 3% 118 ML BOTTLE TP SCH ×2 (09:00→21:03)
[2019-10-27] MEDS: JEVITY 1.2 1000 ML LIQUID GT PRN (14:49)
[2019-10-27] MEDS: ATORVASTATIN 10 MG TABLET GT SCH (20:52)
[2019-10-27] MEDS: MULTIVIT, IRON, MIN NO. 8, FA TABLET GT SCH (20:53)
[2019-10-27 23:18] VITALS: BP 111/76
[2019-10-28] MEDS: IPRATROPIUM BROMIDE 0.5 MG/2.5 ML NEBU NEB SCH ×6 (02:55→23:30)
[2019-10-28] MEDS: ALBUTEROL SULFATE 2.5 MG/3 ML NEBU NEB SCH ×6 (02:55→23:30)
[2019-10-28] MEDS: CHOLECALCIFEROL 1,000 UNIT TABLET GT SCH (05:36)
[2019-10-28] MEDS: BUDESONIDE 0.5 MG/2 ML NEBU NEB SCH ×2 (07:13→19:32)
[2019-10-28 08:00] VITALS: BP 165/82
[2019-10-28] MEDS: HYDROGEN PEROXIDE 3% 118 ML BOTTLE TP SCH ×2 (08:07→21:57)
[2019-10-28] MEDS: NUTRISOURCE FIBER 4 GM PACKET GT SCH ×2 (08:24→21:32)
[2019-10-28] MEDS: BACLOFEN 10 MG TABLET GT SCH ×2 (08:24→21:32)
[2019-10-28] MEDS: DOCUSATE SODIUM 100 MG/10 ML LIQUID UDC GT SCH (08:24)
[2019-10-28] MEDS: CALCIUM CARBONATE 500 MG TABLET GT SCH ×2 (08:25→21:32)
[2019-10-28] MEDS: TRIAMCINOLONE ACET 0.1% CREAM 15 GM TUBE TP SCH ×2 (08:25→21:33)
[2019-10-28] MEDS: Z GUARD REMEDY PASTE 57 GM TUBE TOP SCH ×2 (08:25→21:33)
[2019-10-28] MEDS: NYSTATIN CREAM 30 GM TUBE TP SCH ×2 (08:26→21:33)
--- NOTE | 2019-10-28 13:55 | NUR ---
Pharmacy Update from Today's 10/28/19 IDT Meeting: VS: Temp 97.4 BP 111/76 HR 59 LABS: (from 10/05/19) Wbc 5.6 H/H 15.4/45.3 Plt 159 Na 139 K 4.2 Cl 102 CO2 31 BUN/SCr 15/0.5 BS 101 Ca 9.6 MEDICATION USE REVIEWED: > Pt not on any anti-psych or anti-seizure medications > PRN MED USAGE: (Sep) Tylenol for pain used x 0 Tylenol for temp used x 0 Bisacodyl PRN x 3 NEW ORDERS NOTED: > NA Pt was reviewed and discussed in depth with no medication concerns or issues reported at this time and no further recs from rx at this time. Pt remains stable on current regimen, will continue to follow.
--- NOTE | 2019-10-28 15:08 | NUR ---
INTERDISCIPLINARY PLAN OF CARE CONFERENCE was held today. Patient's family lives [id number] and do not participate in monthly meetings. Dr. Underwood and the Interdisciplinary Team reviewed the current plan of care in detail. RN reported on patient's medical condition. See RN IDT conference notes. No major changes in condition were reported. See all disciplines IDT notes and physician's progress notes for additional details.
[2019-10-28] MEDS: BISACODYL 10 MG SUPP.RECT RC PRN (18:08)
[2019-10-28] MEDS: JEVITY 1.2 1000 ML LIQUID GT PRN (18:46)
[2019-10-28 20:20] VITALS: BP 102/68
[2019-10-28] MEDS: ATORVASTATIN 10 MG TABLET GT SCH (21:32)
[2019-10-29] MEDS: ALBUTEROL SULFATE 2.5 MG/3 ML NEBU NEB SCH ×6 (03:06→23:23)
[2019-10-29] MEDS: IPRATROPIUM BROMIDE 0.5 MG/2.5 ML NEBU NEB SCH ×6 (03:06→23:22)
[2019-10-29] MEDS: CHOLECALCIFEROL 1,000 UNIT TABLET GT SCH (05:38)
[2019-10-29] MEDS: BUDESONIDE 0.5 MG/2 ML NEBU NEB SCH ×2 (07:43→19:49)
[2019-10-29 08:00] VITALS: BP 112/72
[2019-10-29] MEDS: TRIAMCINOLONE ACET 0.1% CREAM 15 GM TUBE TP SCH ×2 (08:19→21:25)
[2019-10-29] MEDS: CALCIUM CARBONATE 500 MG TABLET GT SCH ×2 (08:19→21:24)
[2019-10-29] MEDS: BACLOFEN 10 MG TABLET GT SCH ×2 (08:19→21:24)
[2019-10-29] MEDS: NUTRISOURCE FIBER 4 GM PACKET GT SCH ×2 (08:19→21:24)
[2019-10-29] MEDS: NYSTATIN CREAM 30 GM TUBE TP SCH ×2 (08:19→21:25)
[2019-10-29] MEDS: Z GUARD REMEDY PASTE 57 GM TUBE TOP SCH ×2 (08:19→21:24)
[2019-10-29] MEDS: DOCUSATE SODIUM 100 MG/10 ML LIQUID UDC GT SCH (08:19)
[2019-10-29] MEDS: HYDROGEN PEROXIDE 3% 118 ML BOTTLE TP SCH ×2 (11:12→21:54)
[2019-10-29] MEDS: MULTIVIT, IRON, MIN NO. 8, FA TABLET GT SCH (21:24)
[2019-10-29] MEDS: ATORVASTATIN 10 MG TABLET GT SCH (21:24)
[2019-10-30] MEDS: JEVITY 1.2 1000 ML LIQUID GT PRN (00:30)
[2019-10-30] MEDS: ALBUTEROL SULFATE 2.5 MG/3 ML NEBU NEB SCH ×6 (02:31→22:53)
[2019-10-30] MEDS: IPRATROPIUM BROMIDE 0.5 MG/2.5 ML NEBU NEB SCH ×6 (02:31→22:53)
[2019-10-30] MEDS: CHOLECALCIFEROL 1,000 UNIT TABLET GT SCH (05:38)
[2019-10-30] MEDS: BUDESONIDE 0.5 MG/2 ML NEBU NEB SCH ×2 (07:11→18:55)
[2019-10-30 07:30] VITALS: BP 115/66
[2019-10-30] MEDS: CALCIUM CARBONATE 500 MG TABLET GT SCH ×2 (08:30→20:45)
[2019-10-30] MEDS: NUTRISOURCE FIBER 4 GM PACKET GT SCH ×2 (08:30→20:44)
[2019-10-30] MEDS: BACLOFEN 10 MG TABLET GT SCH ×2 (08:30→20:44)
[2019-10-30] MEDS: DOCUSATE SODIUM 100 MG/10 ML LIQUID UDC GT SCH (08:30)
[2019-10-30] MEDS: TRIAMCINOLONE ACET 0.1% CREAM 15 GM TUBE TP SCH ×2 (08:31→20:45)
[2019-10-30] MEDS: Z GUARD REMEDY PASTE 57 GM TUBE TOP SCH ×2 (08:31→20:45)
[2019-10-30] MEDS: NYSTATIN CREAM 30 GM TUBE TP SCH ×2 (08:31→20:45)
[2019-10-30] MEDS: HYDROGEN PEROXIDE 3% 118 ML BOTTLE TP SCH ×2 (08:50→20:29)
--- NOTE | 2019-10-30 19:03 | NUR ---
SEEN AND EXAMINED BY DR. ALBERTO JETER.
[2019-10-30 20:00] VITALS: BP 118/94
[2019-10-30] MEDS: ATORVASTATIN 10 MG TABLET GT SCH (20:44)
[2019-10-31] MEDS: ALBUTEROL SULFATE 2.5 MG/3 ML NEBU NEB SCH ×6 (02:44→23:12)
[2019-10-31] MEDS: IPRATROPIUM BROMIDE 0.5 MG/2.5 ML NEBU NEB SCH ×6 (02:44→23:12)
[2019-10-31] MEDS: JEVITY 1.2 1000 ML LIQUID GT PRN (04:44)
[2019-10-31] MEDS: CHOLECALCIFEROL 1,000 UNIT TABLET GT SCH (06:07)
[2019-10-31] MEDS: BUDESONIDE 0.5 MG/2 ML NEBU NEB SCH ×2 (07:26→19:03)
[2019-10-31 08:30] VITALS: BP 106/70
[2019-10-31] MEDS: DOCUSATE SODIUM 100 MG/10 ML LIQUID UDC GT SCH (08:32)
[2019-10-31] MEDS: BACLOFEN 10 MG TABLET GT SCH ×2 (08:32→21:29)
[2019-10-31] MEDS: TRIAMCINOLONE ACET 0.1% CREAM 15 GM TUBE TP SCH ×2 (08:34→21:29)
[2019-10-31] MEDS: NUTRISOURCE FIBER 4 GM PACKET GT SCH ×2 (08:34→21:29)
[2019-10-31] MEDS: Z GUARD REMEDY PASTE 57 GM TUBE TOP SCH ×2 (08:34→21:29)
[2019-10-31] MEDS: NYSTATIN CREAM 30 GM TUBE TP SCH ×2 (08:34→21:29)
[2019-10-31] MEDS: CALCIUM CARBONATE 500 MG TABLET GT SCH ×2 (08:34→21:29)
[2019-10-31] MEDS: HYDROGEN PEROXIDE 3% 118 ML BOTTLE TP SCH ×2 (09:00→19:03)
[2019-10-31 20:10] VITALS: BP 134/75
[2019-10-31] MEDS: MULTIVIT, IRON, MIN NO. 8, FA TABLET GT SCH (21:29)
[2019-10-31] MEDS: ATORVASTATIN 10 MG TABLET GT SCH (21:29)
[2019-11-01] MEDS: ALBUTEROL SULFATE 2.5 MG/3 ML NEBU NEB SCH ×6 (03:35→23:44)
[2019-11-01] MEDS: IPRATROPIUM BROMIDE 0.5 MG/2.5 ML NEBU NEB SCH ×6 (03:35→23:44)
[2019-11-01] MEDS: CHOLECALCIFEROL 1,000 UNIT TABLET GT SCH (05:59)
[2019-11-01] MEDS: JEVITY 1.2 1000 ML LIQUID GT PRN (06:59)
[2019-11-01] MEDS: BUDESONIDE 0.5 MG/2 ML NEBU NEB SCH ×2 (07:54→20:30)
[2019-11-01 08:30] VITALS: BP 137/65
[2019-11-01] MEDS: DOCUSATE SODIUM 100 MG/10 ML LIQUID UDC GT SCH (08:44)
[2019-11-01] MEDS: CALCIUM CARBONATE 500 MG TABLET GT SCH ×2 (08:46→20:52)
[2019-11-01] MEDS: BACLOFEN 10 MG TABLET GT SCH ×2 (08:46→20:52)
[2019-11-01] MEDS: Z GUARD REMEDY PASTE 57 GM TUBE TOP SCH ×2 (08:46→20:52)
[2019-11-01] MEDS: NUTRISOURCE FIBER 4 GM PACKET GT SCH ×2 (08:46→20:52)
[2019-11-01] MEDS: NYSTATIN CREAM 30 GM TUBE TP SCH ×2 (09:30→20:52)
[2019-11-01] MEDS: TRIAMCINOLONE ACET 0.1% CREAM 15 GM TUBE TP SCH ×2 (09:30→20:52)
[2019-11-01] MEDS: HYDROGEN PEROXIDE 3% 118 ML BOTTLE TP SCH ×2 (11:49→21:50)
[2019-11-01 20:30] VITALS: BP 117/77
[2019-11-01] MEDS: ATORVASTATIN 10 MG TABLET GT SCH (20:52)
[2019-11-02] MEDS: IPRATROPIUM BROMIDE 0.5 MG/2.5 ML NEBU NEB SCH ×6 (03:33→22:37)
[2019-11-02] MEDS: ALBUTEROL SULFATE 2.5 MG/3 ML NEBU NEB SCH ×6 (03:33→22:37)
[2019-11-02] MEDS: JEVITY 1.2 1000 ML LIQUID GT PRN (05:22)
[2019-11-02] MEDS: CHOLECALCIFEROL 1,000 UNIT TABLET GT SCH (06:21)
[2019-11-02] MEDS: BUDESONIDE 0.5 MG/2 ML NEBU NEB SCH ×2 (07:09→19:35)
[2019-11-02 08:00] VITALS: BP 117/70
[2019-11-02] MEDS: BACLOFEN 10 MG TABLET GT SCH ×2 (08:00→21:12)
[2019-11-02] MEDS: DOCUSATE SODIUM 100 MG/10 ML LIQUID UDC GT SCH (08:00)
[2019-11-02] MEDS: Z GUARD REMEDY PASTE 57 GM TUBE TOP SCH ×2 (08:01→21:13)
[2019-11-02] MEDS: CALCIUM CARBONATE 500 MG TABLET GT SCH ×2 (08:01→21:13)
[2019-11-02] MEDS: NUTRISOURCE FIBER 4 GM PACKET GT SCH ×2 (08:01→21:13)
[2019-11-02] MEDS: NYSTATIN CREAM 30 GM TUBE TP SCH ×2 (08:02→21:13)
[2019-11-02] MEDS: TRIAMCINOLONE ACET 0.1% CREAM 15 GM TUBE TP SCH ×2 (08:02→21:13)
[2019-11-02] MEDS: HYDROGEN PEROXIDE 3% 118 ML BOTTLE TP SCH ×2 (08:49→20:58)
--- NOTE | 2019-11-02 12:42 | NUR ---
Pt Gt out. reinserted prn. placement checked. will wait for kub to confirm placement.
[2019-11-02 20:36] VITALS: BP 139/81
[2019-11-02] MEDS: ATORVASTATIN 10 MG TABLET GT SCH (21:12)
[2019-11-02] MEDS: MULTIVIT, IRON, MIN NO. 8, FA TABLET GT SCH (21:13)
[2019-11-03] MEDS: IPRATROPIUM BROMIDE 0.5 MG/2.5 ML NEBU NEB SCH ×6 (03:10→22:58)
[2019-11-03] MEDS: ALBUTEROL SULFATE 2.5 MG/3 ML NEBU NEB SCH ×6 (03:11→22:58)
[2019-11-03] MEDS: CHOLECALCIFEROL 1,000 UNIT TABLET GT SCH (05:35)
[2019-11-03] MEDS: JEVITY 1.2 1000 ML LIQUID GT PRN (06:52)
[2019-11-03] MEDS: BUDESONIDE 0.5 MG/2 ML NEBU NEB SCH ×2 (07:02→18:50)
[2019-11-03 08:00] VITALS: BP 107/66
[2019-11-03] MEDS: Z GUARD REMEDY PASTE 57 GM TUBE TOP SCH ×2 (08:40→20:32)
[2019-11-03] MEDS: DOCUSATE SODIUM 100 MG/10 ML LIQUID UDC GT SCH (08:40)
[2019-11-03] MEDS: TRIAMCINOLONE ACET 0.1% CREAM 15 GM TUBE TP SCH ×2 (08:40→20:32)
[2019-11-03] MEDS: CALCIUM CARBONATE 500 MG TABLET GT SCH ×2 (08:40→20:32)
[2019-11-03] MEDS: NYSTATIN CREAM 30 GM TUBE TP SCH ×2 (08:40→20:32)
[2019-11-03] MEDS: BACLOFEN 10 MG TABLET GT SCH ×2 (08:40→20:32)
[2019-11-03] MEDS: NUTRISOURCE FIBER 4 GM PACKET GT SCH ×2 (08:40→20:32)
[2019-11-03] MEDS: HYDROGEN PEROXIDE 3% 118 ML BOTTLE TP SCH ×2 (09:45→21:01)
[2019-11-03] MEDS: BISACODYL 10 MG SUPP.RECT RC PRN (16:50)
[2019-11-03 20:30] VITALS: BP 143/86
[2019-11-03] MEDS: ATORVASTATIN 10 MG TABLET GT SCH (20:32)
[2019-11-04] MEDS: ALBUTEROL SULFATE 2.5 MG/3 ML NEBU NEB SCH ×5 (02:49→20:20)
[2019-11-04] MEDS: IPRATROPIUM BROMIDE 0.5 MG/2.5 ML NEBU NEB SCH ×5 (02:49→20:20)
[2019-11-04] MEDS: JEVITY 1.2 1000 ML LIQUID GT PRN (04:17)
[2019-11-04] MEDS: CHOLECALCIFEROL 1,000 UNIT TABLET GT SCH (05:30)
[2019-11-04] MEDS: BUDESONIDE 0.5 MG/2 ML NEBU NEB SCH ×2 (06:56→20:25)
[2019-11-04 08:00] VITALS: BP 96/44
[2019-11-04] MEDS: Z GUARD REMEDY PASTE 57 GM TUBE TOP SCH ×2 (08:37→21:36)
[2019-11-04] MEDS: TRIAMCINOLONE ACET 0.1% CREAM 15 GM TUBE TP SCH ×2 (08:37→21:36)
[2019-11-04] MEDS: CALCIUM CARBONATE 500 MG TABLET GT SCH ×2 (08:37→21:36)
[2019-11-04] MEDS: DOCUSATE SODIUM 100 MG/10 ML LIQUID UDC GT SCH (08:37)
[2019-11-04] MEDS: BACLOFEN 10 MG TABLET GT SCH ×2 (08:37→21:35)
[2019-11-04] MEDS: NYSTATIN CREAM 30 GM TUBE TP SCH ×2 (08:37→21:36)
[2019-11-04] MEDS: NUTRISOURCE FIBER 4 GM PACKET GT SCH ×2 (08:37→21:35)
[2019-11-04] MEDS: HYDROGEN PEROXIDE 3% 118 ML BOTTLE TP SCH ×2 (09:46→21:00)
[2019-11-04 19:37] VITALS: BP 104/64
[2019-11-04] MEDS: ATORVASTATIN 10 MG TABLET GT SCH (21:35)
[2019-11-04] MEDS: MULTIVIT, IRON, MIN NO. 8, FA TABLET GT SCH (21:36)
[2019-11-05] MEDS: ALBUTEROL SULFATE 2.5 MG/3 ML NEBU NEB SCH ×6 (00:01→23:32)
[2019-11-05] MEDS: CHOLECALCIFEROL 1,000 UNIT TABLET GT SCH (05:55)
[2019-11-05] MEDS: JEVITY 1.2 1000 ML LIQUID GT PRN (07:21)
[2019-11-05] MEDS: IPRATROPIUM BROMIDE 0.5 MG/2.5 ML NEBU NEB SCH ×6 (07:41→23:32)
[2019-11-05] MEDS: HYDROGEN PEROXIDE 3% 118 ML BOTTLE TP SCH ×2 (07:42→20:44)
[2019-11-05] MEDS: BUDESONIDE 0.5 MG/2 ML NEBU NEB SCH ×2 (07:42→19:32)
[2019-11-05] MEDS: BACLOFEN 10 MG TABLET GT SCH ×2 (08:23→20:55)
[2019-11-05] MEDS: DOCUSATE SODIUM 100 MG/10 ML LIQUID UDC GT SCH (08:23)
[2019-11-05] MEDS: NUTRISOURCE FIBER 4 GM PACKET GT SCH ×2 (08:24→20:55)
[2019-11-05] MEDS: TRIAMCINOLONE ACET 0.1% CREAM 15 GM TUBE TP SCH ×2 (08:24→20:55)
[2019-11-05] MEDS: Z GUARD REMEDY PASTE 57 GM TUBE TOP SCH ×2 (08:24→20:55)
[2019-11-05] MEDS: CALCIUM CARBONATE 500 MG TABLET GT SCH ×2 (08:24→20:55)
[2019-11-05] MEDS: NYSTATIN CREAM 30 GM TUBE TP SCH ×2 (08:25→20:55)
[2019-11-05 11:43] VITALS: BP 102/64
[2019-11-05 20:24] VITALS: BP 149/82
[2019-11-05] MEDS: ATORVASTATIN 10 MG TABLET GT SCH (20:55)
[2019-11-06] MEDS: IPRATROPIUM BROMIDE 0.5 MG/2.5 ML NEBU NEB SCH ×6 (03:21→23:49)
[2019-11-06] MEDS: ALBUTEROL SULFATE 2.5 MG/3 ML NEBU NEB SCH ×6 (03:21→23:49)
[2019-11-06] MEDS: CHOLECALCIFEROL 1,000 UNIT TABLET GT SCH (05:38)
[2019-11-06] MEDS: JEVITY 1.2 1000 ML LIQUID GT PRN (06:00)
[2019-11-06] MEDS: BUDESONIDE 0.5 MG/2 ML NEBU NEB SCH ×2 (07:58→20:22)
[2019-11-06 08:05] VITALS: BP 105/66
[2019-11-06] MEDS: DOCUSATE SODIUM 100 MG/10 ML LIQUID UDC GT SCH (08:25)
[2019-11-06] MEDS: NUTRISOURCE FIBER 4 GM PACKET GT SCH ×2 (08:26→21:18)
[2019-11-06] MEDS: BACLOFEN 10 MG TABLET GT SCH ×2 (08:26→21:18)
[2019-11-06] MEDS: CALCIUM CARBONATE 500 MG TABLET GT SCH ×2 (08:27→21:18)
[2019-11-06] MEDS: Z GUARD REMEDY PASTE 57 GM TUBE TOP SCH ×2 (08:27→21:18)
[2019-11-06] MEDS: TRIAMCINOLONE ACET 0.1% CREAM 15 GM TUBE TP SCH ×2 (09:30→21:18)
[2019-11-06] MEDS: NYSTATIN CREAM 30 GM TUBE TP SCH ×2 (09:30→21:18)
[2019-11-06] MEDS: HYDROGEN PEROXIDE 3% 118 ML BOTTLE TP SCH ×2 (09:54→21:23)
[2019-11-06 20:31] VITALS: BP 136/44
[2019-11-06] MEDS: MULTIVIT, IRON, MIN NO. 8, FA TABLET GT SCH (21:18)
[2019-11-06] MEDS: ATORVASTATIN 10 MG TABLET GT SCH (21:18)
[2019-11-07] MEDS: IPRATROPIUM BROMIDE 0.5 MG/2.5 ML NEBU NEB SCH ×6 (03:19→23:36)
[2019-11-07] MEDS: ALBUTEROL SULFATE 2.5 MG/3 ML NEBU NEB SCH ×6 (03:19→23:36)
[2019-11-07] MEDS: JEVITY 1.2 1000 ML LIQUID GT PRN (04:10)
[2019-11-07] MEDS: CHOLECALCIFEROL 1,000 UNIT TABLET GT SCH (05:37)
[2019-11-07] MEDS: BUDESONIDE 0.5 MG/2 ML NEBU NEB SCH ×2 (07:37→20:45)
[2019-11-07 08:00] VITALS: BP 117/62
[2019-11-07] MEDS: DOCUSATE SODIUM 100 MG/10 ML LIQUID UDC GT SCH (08:46)
[2019-11-07] MEDS: NYSTATIN CREAM 30 GM TUBE TP SCH ×2 (08:47→21:00)
[2019-11-07] MEDS: TRIAMCINOLONE ACET 0.1% CREAM 15 GM TUBE TP SCH ×2 (08:47→21:00)
[2019-11-07] MEDS: CALCIUM CARBONATE 500 MG TABLET GT SCH ×2 (08:47→21:00)
[2019-11-07] MEDS: BACLOFEN 10 MG TABLET GT SCH ×2 (08:47→20:07)
[2019-11-07] MEDS: Z GUARD REMEDY PASTE 57 GM TUBE TOP SCH ×2 (08:47→21:00)
[2019-11-07] MEDS: NUTRISOURCE FIBER 4 GM PACKET GT SCH ×2 (08:47→20:07)
[2019-11-07] MEDS: HYDROGEN PEROXIDE 3% 118 ML BOTTLE TP SCH ×2 (09:00→22:00)
--- NOTE | 2019-11-07 19:12 | NUR ---
This SW spoke with patient's sister Dione [phone] and informed her that per CDC and [facility] decision to minimize the risk of subacute residents becoming sick with the COVID-19 virus, visitation to [facility] will be suspended, effective immediately, and until further notice. Dione expressed understanding.
[2019-11-07 20:00] VITALS: BP 128/81
[2019-11-07] MEDS: ATORVASTATIN 10 MG TABLET GT SCH (20:07)
[2019-11-08] MEDS: IPRATROPIUM BROMIDE 0.5 MG/2.5 ML NEBU NEB SCH ×6 (03:44→23:00)
[2019-11-08] MEDS: ALBUTEROL SULFATE 2.5 MG/3 ML NEBU NEB SCH ×6 (03:44→23:00)
[2019-11-08] MEDS: CHOLECALCIFEROL 1,000 UNIT TABLET GT SCH (05:54)
--- NOTE | 2019-11-08 08:00 | NUR ---
Pt with no respiratory distress noted ,no increase secretions afebrile,temp 97.4 ,o2 sat 97%.
[2019-11-08 08:05] VITALS: BP 114/67
[2019-11-08] MEDS: BUDESONIDE 0.5 MG/2 ML NEBU NEB SCH ×2 (08:17→20:30)
[2019-11-08] MEDS: DOCUSATE SODIUM 100 MG/10 ML LIQUID UDC GT SCH (09:08)
[2019-11-08] MEDS: CALCIUM CARBONATE 500 MG TABLET GT SCH ×2 (09:09→20:41)
[2019-11-08] MEDS: NUTRISOURCE FIBER 4 GM PACKET GT SCH ×2 (09:09→20:41)
[2019-11-08] MEDS: NYSTATIN CREAM 30 GM TUBE TP SCH ×2 (09:09→20:44)
[2019-11-08] MEDS: TRIAMCINOLONE ACET 0.1% CREAM 15 GM TUBE TP SCH ×2 (09:09→20:44)
[2019-11-08] MEDS: Z GUARD REMEDY PASTE 57 GM TUBE TOP SCH ×2 (09:09→20:41)
[2019-11-08] MEDS: BACLOFEN 10 MG TABLET GT SCH ×2 (09:09→20:41)
[2019-11-08] MEDS: HYDROGEN PEROXIDE 3% 118 ML BOTTLE TP SCH ×2 (09:38→21:00)
[2019-11-08] MEDS: JEVITY 1.2 1000 ML LIQUID GT PRN (13:10)
[2019-11-08] MEDS: ATORVASTATIN 10 MG TABLET GT SCH (20:41)
[2019-11-08] MEDS: MULTIVIT, IRON, MIN NO. 8, FA TABLET GT SCH (20:41)
--- NOTE | 2019-11-08 22:00 | NUR ---
Patient is sleeping, temperature is 97.4 Fahrenheit, Trach is intact and patent, suctioned with moderate pale yellow secretions, 02 sat is 98% on 28% fi02, no signs of any respiratory distress, turned and repositioned, kept clean and comfortable.
[2019-11-08 22:09] VITALS: BP 143/82
[2019-11-09] MEDS: IPRATROPIUM BROMIDE 0.5 MG/2.5 ML NEBU NEB SCH ×6 (03:39→23:58)
[2019-11-09] MEDS: ALBUTEROL SULFATE 2.5 MG/3 ML NEBU NEB SCH ×6 (03:39→23:58)
[2019-11-09] MEDS: CHOLECALCIFEROL 1,000 UNIT TABLET GT SCH (06:30)
[2019-11-09] MEDS: BUDESONIDE 0.5 MG/2 ML NEBU NEB SCH ×2 (08:02→20:55)
[2019-11-09] MEDS: Z GUARD REMEDY PASTE 57 GM TUBE TOP SCH ×2 (08:18→21:13)
[2019-11-09] MEDS: CALCIUM CARBONATE 500 MG TABLET GT SCH ×2 (08:18→21:12)
[2019-11-09] MEDS: BACLOFEN 10 MG TABLET GT SCH ×2 (08:18→21:12)
[2019-11-09] MEDS: DOCUSATE SODIUM 100 MG/10 ML LIQUID UDC GT SCH (08:18)
[2019-11-09] MEDS: NUTRISOURCE FIBER 4 GM PACKET GT SCH ×2 (08:18→21:12)
[2019-11-09] MEDS: TRIAMCINOLONE ACET 0.1% CREAM 15 GM TUBE TP SCH ×2 (08:19→21:13)
[2019-11-09] MEDS: NYSTATIN CREAM 30 GM TUBE TP SCH ×2 (08:19→21:13)
[2019-11-09 08:30] VITALS: BP 98/63
[2019-11-09] MEDS: HYDROGEN PEROXIDE 3% 118 ML BOTTLE TP SCH ×2 (09:14→21:46)
[2019-11-09] MEDS: JEVITY 1.2 1000 ML LIQUID GT PRN (15:59)
--- NOTE | 2019-11-09 18:32 | NUR ---
Pt afebrile temperature 97.4 ,no respiratory distress,no changes of condition noted.
[2019-11-09] MEDS: ATORVASTATIN 10 MG TABLET GT SCH (21:12)
--- NOTE | 2019-11-09 22:12 | NUR ---
Afebrile, temperature is 98.4 Fahrenheit, trach is intact and patent, 02 sat is 96%, no respiratory distress noted, kept clean and comfortable.
[2019-11-09 23:00] VITALS: BP 127/80
[2019-11-10] MEDS: ALBUTEROL SULFATE 2.5 MG/3 ML NEBU NEB SCH ×6 (04:12→23:40)
[2019-11-10] MEDS: IPRATROPIUM BROMIDE 0.5 MG/2.5 ML NEBU NEB SCH ×6 (04:12→23:40)
[2019-11-10] MEDS: CHOLECALCIFEROL 1,000 UNIT TABLET GT SCH (05:46)
[2019-11-10] MEDS: BUDESONIDE 0.5 MG/2 ML NEBU NEB SCH ×2 (07:11→18:58)
[2019-11-10 08:00] VITALS: BP 108/67
[2019-11-10] MEDS: HYDROGEN PEROXIDE 3% 118 ML BOTTLE TP SCH ×2 (09:00→21:30)
[2019-11-10] MEDS: NYSTATIN CREAM 30 GM TUBE TP SCH ×2 (09:05→20:21)
[2019-11-10] MEDS: TRIAMCINOLONE ACET 0.1% CREAM 15 GM TUBE TP SCH ×2 (09:05→20:21)
[2019-11-10] MEDS: BACLOFEN 10 MG TABLET GT SCH ×2 (09:05→20:20)
[2019-11-10] MEDS: DOCUSATE SODIUM 100 MG/10 ML LIQUID UDC GT SCH (09:05)
[2019-11-10] MEDS: CALCIUM CARBONATE 500 MG TABLET GT SCH ×2 (09:05→20:21)
[2019-11-10] MEDS: NUTRISOURCE FIBER 4 GM PACKET GT SCH ×2 (09:05→20:21)
[2019-11-10] MEDS: Z GUARD REMEDY PASTE 57 GM TUBE TOP SCH ×2 (09:05→20:21)
--- NOTE | 2019-11-10 14:42 | NUR ---
Patient stable, no acute respiratory distress noted, repositioned q2hrs for comfort.
[2019-11-10] MEDS: JEVITY 1.2 1000 ML LIQUID GT PRN (18:20)
[2019-11-10] MEDS: ATORVASTATIN 10 MG TABLET GT SCH (20:21)
[2019-11-10] MEDS: MULTIVIT, IRON, MIN NO. 8, FA TABLET GT SCH (20:21)
[2019-11-10 20:37] VITALS: BP 128/89
--- NOTE | 2019-11-10 22:00 | NUR ---
Temperature is 97.4, no SOB, no signs of any respiratory distress noted, 02 sat 97% on 28% fi02. Patient is stable, turned and repositioned, kept clean and comfortable.
[2019-11-11] MEDS: IPRATROPIUM BROMIDE 0.5 MG/2.5 ML NEBU NEB SCH ×5 (03:01→20:14)
[2019-11-11] MEDS: ALBUTEROL SULFATE 2.5 MG/3 ML NEBU NEB SCH ×5 (03:01→20:14)
[2019-11-11] MEDS: CHOLECALCIFEROL 1,000 UNIT TABLET GT SCH (05:33)
[2019-11-11] MEDS: BUDESONIDE 0.5 MG/2 ML NEBU NEB SCH ×2 (08:11→20:14)
[2019-11-11] MEDS: CALCIUM CARBONATE 500 MG TABLET GT SCH ×2 (09:21→20:42)
[2019-11-11] MEDS: Z GUARD REMEDY PASTE 57 GM TUBE TOP SCH ×2 (09:21→20:42)
[2019-11-11] MEDS: NUTRISOURCE FIBER 4 GM PACKET GT SCH ×2 (09:21→20:42)
[2019-11-11] MEDS: DOCUSATE SODIUM 100 MG/10 ML LIQUID UDC GT SCH (09:21)
[2019-11-11] MEDS: BACLOFEN 10 MG TABLET GT SCH ×2 (09:21→20:42)
[2019-11-11 09:24] VITALS: BP 170/89
[2019-11-11] MEDS: HYDROGEN PEROXIDE 3% 118 ML BOTTLE TP SCH ×2 (09:55→21:37)
[2019-11-11] MEDS: JEVITY 1.2 1000 ML LIQUID GT PRN (18:11)
--- NOTE | 2019-11-11 19:46 | NUR ---
No acute respiratory distress ,no increase secretions,afebrile temperature 97.7.
[2019-11-11 20:00] VITALS: BP 126/85
[2019-11-11] MEDS: ATORVASTATIN 10 MG TABLET GT SCH (20:42)
[2019-11-11] MEDS: COD LIVER OIL/ZINC OXIDE OINT 113 GM TUBE TP SCH (20:42)
[2019-11-12] MEDS: ALBUTEROL SULFATE 2.5 MG/3 ML NEBU NEB SCH ×7 (00:08→23:33)
[2019-11-12] MEDS: IPRATROPIUM BROMIDE 0.5 MG/2.5 ML NEBU NEB SCH ×7 (00:08→23:33)
[2019-11-12] MEDS: CHOLECALCIFEROL 1,000 UNIT TABLET GT SCH (05:37)
[2019-11-12] MEDS: BUDESONIDE 0.5 MG/2 ML NEBU NEB SCH ×2 (07:50→20:22)
[2019-11-12 08:00] VITALS: BP 132/57
[2019-11-12] MEDS: DOCUSATE SODIUM 100 MG/10 ML LIQUID UDC GT SCH (08:59)
[2019-11-12] MEDS: NUTRISOURCE FIBER 4 GM PACKET GT SCH ×2 (08:59→21:35)
[2019-11-12] MEDS: BACLOFEN 10 MG TABLET GT SCH ×2 (08:59→21:35)
[2019-11-12] MEDS: Z GUARD REMEDY PASTE 57 GM TUBE TOP SCH ×2 (09:00→21:36)
[2019-11-12] MEDS: CALCIUM CARBONATE 500 MG TABLET GT SCH ×2 (09:00→21:35)
[2019-11-12] MEDS: COD LIVER OIL/ZINC OXIDE OINT 113 GM TUBE TP SCH ×2 (09:00→21:36)
[2019-11-12] MEDS: HYDROGEN PEROXIDE 3% 118 ML BOTTLE TP SCH ×2 (09:34→21:00)
--- NOTE | 2019-11-12 18:00 | NUR ---
No changes on condition,on close observation.
[2019-11-12 20:00] VITALS: BP 131/74
[2019-11-12] MEDS: MULTIVIT, IRON, MIN NO. 8, FA TABLET GT SCH (21:35)
[2019-11-12] MEDS: ATORVASTATIN 10 MG TABLET GT SCH (21:35)
[2019-11-13] MEDS: IPRATROPIUM BROMIDE 0.5 MG/2.5 ML NEBU NEB SCH ×6 (03:52→23:35)
[2019-11-13] MEDS: ALBUTEROL SULFATE 2.5 MG/3 ML NEBU NEB SCH ×6 (03:52→23:35)
[2019-11-13] MEDS: CHOLECALCIFEROL 1,000 UNIT TABLET GT SCH (05:51)
[2019-11-13 08:00] VITALS: BP 100/60
[2019-11-13] MEDS: BUDESONIDE 0.5 MG/2 ML NEBU NEB SCH ×2 (08:03→20:50)
[2019-11-13] MEDS: BACLOFEN 10 MG TABLET GT SCH ×2 (08:29→20:57)
[2019-11-13] MEDS: DOCUSATE SODIUM 100 MG/10 ML LIQUID UDC GT SCH (08:29)
[2019-11-13] MEDS: NUTRISOURCE FIBER 4 GM PACKET GT SCH ×2 (08:29→20:58)
[2019-11-13] MEDS: COD LIVER OIL/ZINC OXIDE OINT 113 GM TUBE TP SCH ×2 (08:31→20:58)
[2019-11-13] MEDS: CALCIUM CARBONATE 500 MG TABLET GT SCH ×2 (08:31→20:58)
[2019-11-13] MEDS: Z GUARD REMEDY PASTE 57 GM TUBE TOP SCH ×2 (08:31→20:58)
[2019-11-13] MEDS: HYDROGEN PEROXIDE 3% 118 ML BOTTLE TP SCH ×2 (09:00→21:00)
[2019-11-13] MEDS: JEVITY 1.2 1000 ML LIQUID GT PRN (14:47)
[2019-11-13 20:00] VITALS: BP 113/67
[2019-11-13] MEDS: ATORVASTATIN 10 MG TABLET GT SCH (20:57)
[2019-11-14] MEDS: IPRATROPIUM BROMIDE 0.5 MG/2.5 ML NEBU NEB SCH ×6 (04:18→23:10)
[2019-11-14] MEDS: ALBUTEROL SULFATE 2.5 MG/3 ML NEBU NEB SCH ×6 (04:18→23:10)
[2019-11-14] MEDS: CHOLECALCIFEROL 1,000 UNIT TABLET GT SCH (05:48)
[2019-11-14] MEDS: BUDESONIDE 0.5 MG/2 ML NEBU NEB SCH ×2 (07:16→19:06)
[2019-11-14 08:00] VITALS: BP 110/52
[2019-11-14] MEDS: DOCUSATE SODIUM 100 MG/10 ML LIQUID UDC GT SCH (08:44)
[2019-11-14] MEDS: NUTRISOURCE FIBER 4 GM PACKET GT SCH ×2 (08:44→20:56)
[2019-11-14] MEDS: BACLOFEN 10 MG TABLET GT SCH ×2 (08:44→20:56)
[2019-11-14] MEDS: CALCIUM CARBONATE 500 MG TABLET GT SCH ×2 (08:44→20:56)
[2019-11-14] MEDS: Z GUARD REMEDY PASTE 57 GM TUBE TOP SCH ×2 (08:45→20:56)
[2019-11-14] MEDS: COD LIVER OIL/ZINC OXIDE OINT 113 GM TUBE TP SCH ×2 (08:45→20:56)
[2019-11-14] MEDS: HYDROGEN PEROXIDE 3% 118 ML BOTTLE TP SCH ×2 (09:00→21:00)
[2019-11-14] MEDS: JEVITY 1.2 1000 ML LIQUID GT PRN (18:34)
[2019-11-14] MEDS: ATORVASTATIN 10 MG TABLET GT SCH (20:56)
[2019-11-14] MEDS: MULTIVIT, IRON, MIN NO. 8, FA TABLET GT SCH (20:56)
[2019-11-14 22:00] VITALS: BP 102/50
[2019-11-15] MEDS: IPRATROPIUM BROMIDE 0.5 MG/2.5 ML NEBU NEB SCH ×6 (02:32→23:09)
[2019-11-15] MEDS: ALBUTEROL SULFATE 2.5 MG/3 ML NEBU NEB SCH ×6 (02:32→23:09)
[2019-11-15] MEDS: CHOLECALCIFEROL 1,000 UNIT TABLET GT SCH (05:41)
[2019-11-15 08:00] VITALS: BP 115/68
[2019-11-15] MEDS: BUDESONIDE 0.5 MG/2 ML NEBU NEB SCH ×2 (08:13→19:32)
[2019-11-15] MEDS: DOCUSATE SODIUM 100 MG/10 ML LIQUID UDC GT SCH (08:27)
[2019-11-15] MEDS: Z GUARD REMEDY PASTE 57 GM TUBE TOP SCH ×2 (08:27→20:33)
[2019-11-15] MEDS: COD LIVER OIL/ZINC OXIDE OINT 113 GM TUBE TP SCH ×2 (08:27→20:33)
[2019-11-15] MEDS: CALCIUM CARBONATE 500 MG TABLET GT SCH ×2 (08:27→20:33)
[2019-11-15] MEDS: NUTRISOURCE FIBER 4 GM PACKET GT SCH ×2 (08:28→20:33)
[2019-11-15] MEDS: BACLOFEN 10 MG TABLET GT SCH ×2 (08:32→20:33)
[2019-11-15] MEDS: HYDROGEN PEROXIDE 3% 118 ML BOTTLE TP SCH ×2 (09:55→20:33)
--- NOTE | 2019-11-15 12:00 | NUR ---
SEEN BY DR. REAVES AND WITH NNO.
[2019-11-15] MEDS: ATORVASTATIN 10 MG TABLET GT SCH (20:33)
[2019-11-15 20:41] VITALS: BP 115/72
[2019-11-15 20:46] VITALS: BP 123/70
[2019-11-15] MEDS: JEVITY 1.2 1000 ML LIQUID GT PRN (22:35)
[2019-11-16] MEDS: ALBUTEROL SULFATE 2.5 MG/3 ML NEBU NEB SCH ×6 (02:57→23:15)
[2019-11-16] MEDS: IPRATROPIUM BROMIDE 0.5 MG/2.5 ML NEBU NEB SCH ×6 (02:57→23:15)
[2019-11-16] MEDS: CHOLECALCIFEROL 1,000 UNIT TABLET GT SCH (06:39)
[2019-11-16] MEDS: BUDESONIDE 0.5 MG/2 ML NEBU NEB SCH ×2 (07:54→19:42)
[2019-11-16] MEDS: CALCIUM CARBONATE 500 MG TABLET GT SCH ×2 (08:30→20:08)
[2019-11-16] MEDS: NUTRISOURCE FIBER 4 GM PACKET GT SCH ×2 (08:30→20:08)
[2019-11-16] MEDS: DOCUSATE SODIUM 100 MG/10 ML LIQUID UDC GT SCH (08:30)
[2019-11-16] MEDS: BACLOFEN 10 MG TABLET GT SCH ×2 (08:30→20:08)
[2019-11-16] MEDS: Z GUARD REMEDY PASTE 57 GM TUBE TOP SCH ×2 (08:30→20:10)
[2019-11-16] MEDS: COD LIVER OIL/ZINC OXIDE OINT 113 GM TUBE TP SCH ×2 (08:30→20:10)
--- NOTE | 2019-11-16 08:37 | NUR ---
SEEN BY HALINA GREY N.P. AND WITH NNO.
[2019-11-16] MEDS: HYDROGEN PEROXIDE 3% 118 ML BOTTLE TP SCH ×2 (09:58→21:07)
[2019-11-16 11:55] VITALS: BP 156/89
[2019-11-16] MEDS: ATORVASTATIN 10 MG TABLET GT SCH (20:08)
[2019-11-16] MEDS: MULTIVIT, IRON, MIN NO. 8, FA TABLET GT SCH (20:09)
[2019-11-17] MEDS: ALBUTEROL SULFATE 2.5 MG/3 ML NEBU NEB SCH ×6 (03:26→23:23)
[2019-11-17] MEDS: IPRATROPIUM BROMIDE 0.5 MG/2.5 ML NEBU NEB SCH ×6 (03:26→23:23)
[2019-11-17] MEDS: CHOLECALCIFEROL 1,000 UNIT TABLET GT SCH (05:39)
[2019-11-17] MEDS: BUDESONIDE 0.5 MG/2 ML NEBU NEB SCH ×2 (07:25→20:10)
[2019-11-17 08:00] VITALS: BP 101/50
[2019-11-17] MEDS: COD LIVER OIL/ZINC OXIDE OINT 113 GM TUBE TP SCH ×2 (08:53→20:23)
[2019-11-17] MEDS: NUTRISOURCE FIBER 4 GM PACKET GT SCH ×2 (08:53→20:23)
[2019-11-17] MEDS: CALCIUM CARBONATE 500 MG TABLET GT SCH ×2 (08:53→20:23)
[2019-11-17] MEDS: Z GUARD REMEDY PASTE 57 GM TUBE TOP SCH ×2 (08:53→20:23)
[2019-11-17] MEDS: BACLOFEN 10 MG TABLET GT SCH ×2 (08:53→20:22)
[2019-11-17] MEDS: DOCUSATE SODIUM 100 MG/10 ML LIQUID UDC GT SCH (08:53)
[2019-11-17] MEDS: HYDROGEN PEROXIDE 3% 118 ML BOTTLE TP SCH ×2 (09:30→21:00)
[2019-11-17] MEDS: ATORVASTATIN 10 MG TABLET GT SCH (20:23)
[2019-11-18] MEDS: ALBUTEROL SULFATE 2.5 MG/3 ML NEBU NEB SCH ×6 (03:43→23:16)
[2019-11-18] MEDS: IPRATROPIUM BROMIDE 0.5 MG/2.5 ML NEBU NEB SCH ×6 (03:43→23:16)
[2019-11-18] MEDS: CHOLECALCIFEROL 1,000 UNIT TABLET GT SCH (06:40)
[2019-11-18] MEDS: BUDESONIDE 0.5 MG/2 ML NEBU NEB SCH ×2 (07:40→19:26)
[2019-11-18 08:00] VITALS: BP 109/70
[2019-11-18] MEDS: HYDROGEN PEROXIDE 3% 118 ML BOTTLE TP SCH ×2 (08:44→20:16)
[2019-11-18] MEDS: NUTRISOURCE FIBER 4 GM PACKET GT SCH ×2 (08:54→21:02)
[2019-11-18] MEDS: BACLOFEN 10 MG TABLET GT SCH ×2 (08:54→21:02)
[2019-11-18] MEDS: DOCUSATE SODIUM 100 MG/10 ML LIQUID UDC GT SCH (08:54)
[2019-11-18] MEDS: CALCIUM CARBONATE 500 MG TABLET GT SCH ×2 (08:54→21:02)
[2019-11-18] MEDS: COD LIVER OIL/ZINC OXIDE OINT 113 GM TUBE TP SCH ×2 (08:55→21:03)
[2019-11-18] MEDS: Z GUARD REMEDY PASTE 57 GM TUBE TOP SCH ×2 (08:55→21:03)
[2019-11-18 20:00] VITALS: BP 100/50
[2019-11-18] MEDS: MULTIVIT, IRON, MIN NO. 8, FA TABLET GT SCH (21:02)
[2019-11-18] MEDS: ATORVASTATIN 10 MG TABLET GT SCH (21:02)
[2019-11-19] MEDS: ALBUTEROL SULFATE 2.5 MG/3 ML NEBU NEB SCH ×6 (03:09→22:34)
[2019-11-19] MEDS: IPRATROPIUM BROMIDE 0.5 MG/2.5 ML NEBU NEB SCH ×7 (03:09→22:34)
[2019-11-19] MEDS: CHOLECALCIFEROL 1,000 UNIT TABLET GT SCH (06:01)
[2019-11-19] MEDS: BUDESONIDE 0.5 MG/2 ML NEBU NEB SCH ×2 (07:58→19:56)
[2019-11-19 08:00] VITALS: BP 139/78
[2019-11-19] MEDS: BACLOFEN 10 MG TABLET GT SCH ×2 (08:48→20:47)
[2019-11-19] MEDS: CALCIUM CARBONATE 500 MG TABLET GT SCH ×2 (08:48→20:40)
[2019-11-19] MEDS: COD LIVER OIL/ZINC OXIDE OINT 113 GM TUBE TP SCH ×2 (08:48→20:40)
[2019-11-19] MEDS: NUTRISOURCE FIBER 4 GM PACKET GT SCH ×2 (08:48→20:39)
[2019-11-19] MEDS: DOCUSATE SODIUM 100 MG/10 ML LIQUID UDC GT SCH (08:48)
[2019-11-19] MEDS: Z GUARD REMEDY PASTE 57 GM TUBE TOP SCH ×2 (08:48→20:40)
[2019-11-19] MEDS: HYDROGEN PEROXIDE 3% 118 ML BOTTLE TP SCH ×2 (09:20→21:18)
--- NOTE | 2019-11-19 17:30 | NUR ---
PT noted with no BM for 4 days. Administered suppository PRN per MD's order. Will endorse to night nurse nurse.
[2019-11-19] MEDS: BISACODYL 10 MG SUPP.RECT RC PRN (18:00)
[2019-11-19] MEDS: ATORVASTATIN 10 MG TABLET GT SCH (20:47)
[2019-11-19] MEDS: JEVITY 1.2 1000 ML LIQUID GT PRN (22:00)
[2019-11-19 22:32] VITALS: BP 133/79
[2019-11-20] MEDS: IPRATROPIUM BROMIDE 0.5 MG/2.5 ML NEBU NEB SCH ×6 (03:20→22:58)
[2019-11-20] MEDS: ALBUTEROL SULFATE 2.5 MG/3 ML NEBU NEB SCH ×6 (03:20→22:58)
[2019-11-20] MEDS: CHOLECALCIFEROL 1,000 UNIT TABLET GT SCH (05:38)
[2019-11-20 08:00] VITALS: BP 114/72
[2019-11-20] MEDS: BUDESONIDE 0.5 MG/2 ML NEBU NEB SCH ×2 (08:22→19:37)
[2019-11-20] MEDS: NUTRISOURCE FIBER 4 GM PACKET GT SCH ×2 (09:00→20:35)
[2019-11-20] MEDS: CALCIUM CARBONATE 500 MG TABLET GT SCH ×2 (09:00→20:35)
[2019-11-20] MEDS: HYDROGEN PEROXIDE 3% 118 ML BOTTLE TP SCH ×2 (09:00→21:20)
[2019-11-20] MEDS: Z GUARD REMEDY PASTE 57 GM TUBE TOP SCH ×2 (09:00→20:35)
[2019-11-20] MEDS: COD LIVER OIL/ZINC OXIDE OINT 113 GM TUBE TP SCH ×2 (09:00→20:35)
[2019-11-20] MEDS: DOCUSATE SODIUM 100 MG/10 ML LIQUID UDC GT SCH (09:00)
[2019-11-20] MEDS: BACLOFEN 10 MG TABLET GT SCH ×2 (09:00→20:35)
[2019-11-20 20:00] VITALS: BP 120/70
[2019-11-20] MEDS: ATORVASTATIN 10 MG TABLET GT SCH (20:35)
[2019-11-20] MEDS: MULTIVIT, IRON, MIN NO. 8, FA TABLET GT SCH (20:35)
[2019-11-21] MEDS: IPRATROPIUM BROMIDE 0.5 MG/2.5 ML NEBU NEB SCH ×7 (00:20→21:00)
[2019-11-21] MEDS: ALBUTEROL SULFATE 2.5 MG/3 ML NEBU NEB SCH ×7 (00:20→21:00)
[2019-11-21] MEDS: CHOLECALCIFEROL 1,000 UNIT TABLET GT SCH (05:32)
[2019-11-21 08:00] VITALS: BP 134/80
[2019-11-21] MEDS: BUDESONIDE 0.5 MG/2 ML NEBU NEB SCH ×3 (08:40→21:10)
[2019-11-21] MEDS: HYDROGEN PEROXIDE 3% 118 ML BOTTLE TP SCH ×2 (09:00→20:26)
[2019-11-21] MEDS: DOCUSATE SODIUM 100 MG/10 ML LIQUID UDC GT SCH (09:26)
[2019-11-21] MEDS: BACLOFEN 10 MG TABLET GT SCH ×2 (09:26→20:24)
[2019-11-21] MEDS: NUTRISOURCE FIBER 4 GM PACKET GT SCH ×2 (09:27→20:25)
[2019-11-21] MEDS: CALCIUM CARBONATE 500 MG TABLET GT SCH ×2 (09:27→20:25)
[2019-11-21] MEDS: COD LIVER OIL/ZINC OXIDE OINT 113 GM TUBE TP SCH ×2 (09:28→20:26)
[2019-11-21] MEDS: Z GUARD REMEDY PASTE 57 GM TUBE TOP SCH ×2 (09:28→20:25)
[2019-11-21] MEDS: JEVITY 1.2 1000 ML LIQUID GT PRN ×2 (09:29→13:20)
--- NOTE | 2019-11-21 16:18 | NUR ---
This and Subacute Emulsion Operator Dixon Jackson provided an update to patient's sister Dione via email that per advisement from [facility], [facility], and CDC, visitation restrictions will continue to remain in place for all terminal make up operator care facilities in order to protect the health and safety of residents and staff. Therefore [facility] will continue to restrict all visitations, until further notice.
[2019-11-21] MEDS: ATORVASTATIN 10 MG TABLET GT SCH (20:25)
[2019-11-21 21:34] VITALS: BP 140/87
[2019-11-22] MEDS: IPRATROPIUM BROMIDE 0.5 MG/2.5 ML NEBU NEB SCH ×6 (03:30→22:30)
[2019-11-22] MEDS: ALBUTEROL SULFATE 2.5 MG/3 ML NEBU NEB SCH ×6 (03:30→22:30)
[2019-11-22] MEDS: CHOLECALCIFEROL 1,000 UNIT TABLET GT SCH (05:51)
[2019-11-22] MEDS: BUDESONIDE 0.5 MG/2 ML NEBU NEB SCH ×2 (07:30→19:09)
[2019-11-22 08:05] VITALS: BP 111/63
[2019-11-22] MEDS: DOCUSATE SODIUM 100 MG/10 ML LIQUID UDC GT SCH (08:32)
[2019-11-22] MEDS: NUTRISOURCE FIBER 4 GM PACKET GT SCH ×2 (08:32→20:49)
[2019-11-22] MEDS: COD LIVER OIL/ZINC OXIDE OINT 113 GM TUBE TP SCH ×2 (08:32→20:50)
[2019-11-22] MEDS: CALCIUM CARBONATE 500 MG TABLET GT SCH ×2 (08:32→20:51)
[2019-11-22] MEDS: Z GUARD REMEDY PASTE 57 GM TUBE TOP SCH ×2 (08:32→20:49)
[2019-11-22] MEDS: BACLOFEN 10 MG TABLET GT SCH ×2 (08:32→20:49)
[2019-11-22] MEDS: HYDROGEN PEROXIDE 3% 118 ML BOTTLE TP SCH ×2 (09:00→19:09)
[2019-11-22] MEDS: MULTIVIT, IRON, MIN NO. 8, FA TABLET GT SCH (20:49)
[2019-11-22] MEDS: ATORVASTATIN 10 MG TABLET GT SCH (20:49)
[2019-11-22 22:01] VITALS: BP 106/72
[2019-11-23] MEDS: IPRATROPIUM BROMIDE 0.5 MG/2.5 ML NEBU NEB SCH ×6 (02:35→23:10)
[2019-11-23] MEDS: ALBUTEROL SULFATE 2.5 MG/3 ML NEBU NEB SCH ×6 (02:35→23:10)
[2019-11-23] MEDS: CHOLECALCIFEROL 1,000 UNIT TABLET GT SCH (05:56)
[2019-11-23] MEDS: BUDESONIDE 0.5 MG/2 ML NEBU NEB SCH ×2 (07:01→20:42)
[2019-11-23 08:05] VITALS: BP 95/61
[2019-11-23] MEDS: HYDROGEN PEROXIDE 3% 118 ML BOTTLE TP SCH ×2 (09:00→21:54)
[2019-11-23] MEDS: Z GUARD REMEDY PASTE 57 GM TUBE TOP SCH ×2 (09:08→20:45)
[2019-11-23] MEDS: COD LIVER OIL/ZINC OXIDE OINT 113 GM TUBE TP SCH ×2 (09:08→20:45)
[2019-11-23] MEDS: BACLOFEN 10 MG TABLET GT SCH ×2 (09:08→20:45)
[2019-11-23] MEDS: NUTRISOURCE FIBER 4 GM PACKET GT SCH ×2 (09:08→20:45)
[2019-11-23] MEDS: CALCIUM CARBONATE 500 MG TABLET GT SCH ×2 (09:08→20:45)
[2019-11-23] MEDS: DOCUSATE SODIUM 100 MG/10 ML LIQUID UDC GT SCH (09:08)
[2019-11-23] MEDS: ATORVASTATIN 10 MG TABLET GT SCH (20:45)
[2019-11-23 22:16] VITALS: BP 102/64
[2019-11-24] MEDS: IPRATROPIUM BROMIDE 0.5 MG/2.5 ML NEBU NEB SCH ×6 (03:42→22:52)
[2019-11-24] MEDS: ALBUTEROL SULFATE 2.5 MG/3 ML NEBU NEB SCH ×6 (03:42→22:52)
[2019-11-24] MEDS: CHOLECALCIFEROL 1,000 UNIT TABLET GT SCH (06:14)
[2019-11-24] MEDS: JEVITY 1.2 1000 ML LIQUID GT PRN (06:14)
[2019-11-24] MEDS: BUDESONIDE 0.5 MG/2 ML NEBU NEB SCH ×2 (07:10→20:15)
[2019-11-24 08:00] VITALS: BP 117/73
[2019-11-24] MEDS: DOCUSATE SODIUM 100 MG/10 ML LIQUID UDC GT SCH (08:53)
[2019-11-24] MEDS: BACLOFEN 10 MG TABLET GT SCH ×2 (08:53→20:28)
[2019-11-24] MEDS: NUTRISOURCE FIBER 4 GM PACKET GT SCH ×2 (08:53→20:28)
[2019-11-24] MEDS: COD LIVER OIL/ZINC OXIDE OINT 113 GM TUBE TP SCH ×2 (08:53→20:28)
[2019-11-24] MEDS: Z GUARD REMEDY PASTE 57 GM TUBE TOP SCH ×2 (08:53→20:28)
[2019-11-24] MEDS: CALCIUM CARBONATE 500 MG TABLET GT SCH ×2 (08:53→20:28)
[2019-11-24] MEDS: HYDROGEN PEROXIDE 3% 118 ML BOTTLE TP SCH ×2 (09:00→20:15)
[2019-11-24] MEDS: ATORVASTATIN 10 MG TABLET GT SCH (20:28)
[2019-11-24] MEDS: MULTIVIT, IRON, MIN NO. 8, FA TABLET GT SCH (20:28)
[2019-11-24 21:26] VITALS: BP 112/75
[2019-11-25] MEDS: IPRATROPIUM BROMIDE 0.5 MG/2.5 ML NEBU NEB SCH ×6 (02:50→23:27)
[2019-11-25] MEDS: ALBUTEROL SULFATE 2.5 MG/3 ML NEBU NEB SCH ×6 (02:50→23:27)
[2019-11-25] MEDS: CHOLECALCIFEROL 1,000 UNIT TABLET GT SCH (05:32)
[2019-11-25] MEDS: JEVITY 1.2 1000 ML LIQUID GT PRN (05:33)
[2019-11-25] MEDS: BUDESONIDE 0.5 MG/2 ML NEBU NEB SCH ×2 (07:20→20:12)
[2019-11-25 08:00] VITALS: BP 118/73
[2019-11-25] MEDS: HYDROGEN PEROXIDE 3% 118 ML BOTTLE TP SCH ×2 (08:19→20:13)
--- NOTE | 2019-11-25 08:30 | NUR ---
Seen and examined by Donavon JESUS,no new orders .
[2019-11-25] MEDS: DOCUSATE SODIUM 100 MG/10 ML LIQUID UDC GT SCH (08:39)
[2019-11-25] MEDS: CALCIUM CARBONATE 500 MG TABLET GT SCH ×2 (08:40→20:23)
[2019-11-25] MEDS: COD LIVER OIL/ZINC OXIDE OINT 113 GM TUBE TP SCH (08:40)
[2019-11-25] MEDS: Z GUARD REMEDY PASTE 57 GM TUBE TOP SCH ×2 (08:40→20:23)
[2019-11-25] MEDS: BACLOFEN 10 MG TABLET GT SCH ×2 (08:40→20:23)
[2019-11-25] MEDS: NUTRISOURCE FIBER 4 GM PACKET GT SCH ×2 (08:40→20:23)
[2019-11-25] MEDS: ATORVASTATIN 10 MG TABLET GT SCH (20:23)
[2019-11-25 21:45] VITALS: BP 122/74
[2019-11-26] MEDS: IPRATROPIUM BROMIDE 0.5 MG/2.5 ML NEBU NEB SCH ×6 (03:20→23:01)
[2019-11-26] MEDS: ALBUTEROL SULFATE 2.5 MG/3 ML NEBU NEB SCH ×6 (03:20→23:01)
[2019-11-26] MEDS: JEVITY 1.2 1000 ML LIQUID GT PRN (06:02)
[2019-11-26] MEDS: CHOLECALCIFEROL 1,000 UNIT TABLET GT SCH (06:02)
[2019-11-26] MEDS: BUDESONIDE 0.5 MG/2 ML NEBU NEB SCH ×2 (07:41→20:29)
[2019-11-26 08:00] VITALS: BP 95/52
[2019-11-26 08:11] VITALS: BP 97/73
[2019-11-26] MEDS: DOCUSATE SODIUM 100 MG/10 ML LIQUID UDC GT SCH (09:04)
[2019-11-26] MEDS: NUTRISOURCE FIBER 4 GM PACKET GT SCH ×2 (09:04→20:24)
[2019-11-26] MEDS: CALCIUM CARBONATE 500 MG TABLET GT SCH ×2 (09:04→20:24)
[2019-11-26] MEDS: BACLOFEN 10 MG TABLET GT SCH ×2 (09:04→20:24)
[2019-11-26] MEDS: Z GUARD REMEDY PASTE 57 GM TUBE TOP SCH ×2 (09:05→20:24)
[2019-11-26] MEDS: HYDROGEN PEROXIDE 3% 118 ML BOTTLE TP SCH ×2 (09:45→21:53)
--- NOTE | 2019-11-26 14:00 | NUR ---
[place] Packer care done by Dr Randolph.
--- NOTE | 2019-11-26 18:17 | NUR ---
Seen and examined by Dr Palomino with no new orders.
[2019-11-26] MEDS: ATORVASTATIN 10 MG TABLET GT SCH (20:24)
[2019-11-26] MEDS: MULTIVIT, IRON, MIN NO. 8, FA TABLET GT SCH (20:24)
[2019-11-26 21:24] VITALS: BP 122/74
[2019-11-27] MEDS: ALBUTEROL SULFATE 2.5 MG/3 ML NEBU NEB SCH ×6 (02:34→23:47)
[2019-11-27] MEDS: IPRATROPIUM BROMIDE 0.5 MG/2.5 ML NEBU NEB SCH ×6 (02:34→23:47)
[2019-11-27] MEDS: JEVITY 1.2 1000 ML LIQUID GT PRN (04:41)
[2019-11-27] MEDS: CHOLECALCIFEROL 1,000 UNIT TABLET GT SCH (06:06)
[2019-11-27] MEDS: BUDESONIDE 0.5 MG/2 ML NEBU NEB SCH ×2 (07:40→20:28)
[2019-11-27 08:30] VITALS: BP 129/68
[2019-11-27] MEDS: BACLOFEN 10 MG TABLET GT SCH ×2 (09:01→20:38)
[2019-11-27] MEDS: DOCUSATE SODIUM 100 MG/10 ML LIQUID UDC GT SCH (09:01)
[2019-11-27] MEDS: CALCIUM CARBONATE 500 MG TABLET GT SCH ×2 (09:02→20:39)
[2019-11-27] MEDS: NUTRISOURCE FIBER 4 GM PACKET GT SCH ×2 (09:02→20:39)
[2019-11-27] MEDS: Z GUARD REMEDY PASTE 57 GM TUBE TOP SCH ×2 (09:02→20:40)
[2019-11-27] MEDS: HYDROGEN PEROXIDE 3% 118 ML BOTTLE TP SCH ×2 (09:16→20:27)
[2019-11-27] MEDS: BISACODYL 10 MG SUPP.RECT RC PRN (18:56)
[2019-11-27] MEDS: ATORVASTATIN 10 MG TABLET GT SCH (20:39)
[2019-11-27 20:49] VITALS: BP 137/92
[2019-11-28] MEDS: ALBUTEROL SULFATE 2.5 MG/3 ML NEBU NEB SCH ×6 (02:31→23:28)
[2019-11-28] MEDS: IPRATROPIUM BROMIDE 0.5 MG/2.5 ML NEBU NEB SCH ×6 (02:31→23:28)
[2019-11-28] MEDS: JEVITY 1.2 1000 ML LIQUID GT PRN (04:37)
[2019-11-28] MEDS: CHOLECALCIFEROL 1,000 UNIT TABLET GT SCH (05:57)
[2019-11-28] MEDS: BUDESONIDE 0.5 MG/2 ML NEBU NEB SCH ×2 (07:28→20:07)
[2019-11-28] MEDS: DOCUSATE SODIUM 100 MG/10 ML LIQUID UDC GT SCH (08:27)
[2019-11-28] MEDS: BACLOFEN 10 MG TABLET GT SCH ×2 (08:28→20:31)
[2019-11-28] MEDS: NUTRISOURCE FIBER 4 GM PACKET GT SCH ×2 (08:28→20:31)
[2019-11-28] MEDS: CALCIUM CARBONATE 500 MG TABLET GT SCH ×2 (08:29→20:31)
[2019-11-28] MEDS: Z GUARD REMEDY PASTE 57 GM TUBE TOP SCH ×2 (08:29→20:31)
[2019-11-28] MEDS: HYDROGEN PEROXIDE 3% 118 ML BOTTLE TP SCH ×2 (09:16→21:17)
--- NOTE | 2019-11-28 09:51 | NUR ---
SEEN BY HALINA GREY N.P. AND WITH NNO.
[2019-11-28 11:30] VITALS: BP 80/44
[2019-11-28] MEDS: MULTIVIT, IRON, MIN NO. 8, FA TABLET GT SCH (20:31)
[2019-11-28] MEDS: ATORVASTATIN 10 MG TABLET GT SCH (20:31)
[2019-11-28 22:39] VITALS: BP 133/71
[2019-11-29] MEDS: IPRATROPIUM BROMIDE 0.5 MG/2.5 ML NEBU NEB SCH ×6 (03:24→22:59)
[2019-11-29] MEDS: ALBUTEROL SULFATE 2.5 MG/3 ML NEBU NEB SCH ×6 (03:24→22:59)
[2019-11-29] MEDS: CHOLECALCIFEROL 1,000 UNIT TABLET GT SCH (05:33)
[2019-11-29] MEDS: BUDESONIDE 0.5 MG/2 ML NEBU NEB SCH ×2 (07:29→20:07)
[2019-11-29] MEDS: BACLOFEN 10 MG TABLET GT SCH ×2 (08:47→20:31)
[2019-11-29] MEDS: NUTRISOURCE FIBER 4 GM PACKET GT SCH ×2 (08:48→20:31)
[2019-11-29] MEDS: DOCUSATE SODIUM 100 MG/10 ML LIQUID UDC GT SCH (08:48)
[2019-11-29] MEDS: Z GUARD REMEDY PASTE 57 GM TUBE TOP SCH ×2 (08:49→20:31)
[2019-11-29] MEDS: CALCIUM CARBONATE 500 MG TABLET GT SCH ×2 (08:49→20:31)
[2019-11-29] MEDS: HYDROGEN PEROXIDE 3% 118 ML BOTTLE TP SCH ×3 (08:49→21:38)
[2019-11-29 14:17] VITALS: BP 120/77
[2019-11-29] MEDS: ATORVASTATIN 10 MG TABLET GT SCH (20:31)
--- NOTE | 2019-11-29 21:45 | NUR ---
Seen and examined by Dorothy Rhodes NP with no new orders.
[2019-11-29 22:00] VITALS: BP 124/72
[2019-11-30] MEDS: ALBUTEROL SULFATE 2.5 MG/3 ML NEBU NEB SCH ×6 (03:09→22:50)
[2019-11-30] MEDS: IPRATROPIUM BROMIDE 0.5 MG/2.5 ML NEBU NEB SCH ×6 (03:09→22:50)
[2019-11-30] MEDS: CHOLECALCIFEROL 1,000 UNIT TABLET GT SCH (05:31)
[2019-11-30] MEDS: BUDESONIDE 0.5 MG/2 ML NEBU NEB SCH ×2 (08:11→20:20)
[2019-11-30] MEDS: Z GUARD REMEDY PASTE 57 GM TUBE TOP SCH ×2 (09:32→20:53)
[2019-11-30] MEDS: BACLOFEN 10 MG TABLET GT SCH ×2 (09:32→20:53)
[2019-11-30] MEDS: CALCIUM CARBONATE 500 MG TABLET GT SCH ×2 (09:32→20:53)
[2019-11-30] MEDS: DOCUSATE SODIUM 100 MG/10 ML LIQUID UDC GT SCH (09:32)
[2019-11-30] MEDS: NUTRISOURCE FIBER 4 GM PACKET GT SCH ×2 (09:32→20:53)
[2019-11-30] MEDS: HYDROGEN PEROXIDE 3% 118 ML BOTTLE TP SCH ×2 (09:33→20:20)
[2019-11-30 11:27] VITALS: BP 130/71
[2019-11-30] MEDS: MULTIVIT, IRON, MIN NO. 8, FA TABLET GT SCH (20:53)
[2019-11-30] MEDS: ATORVASTATIN 10 MG TABLET GT SCH (20:53)
[2019-11-30 23:05] VITALS: BP 132/83
[2019-12-01] MEDS: IPRATROPIUM BROMIDE 0.5 MG/2.5 ML NEBU NEB SCH ×6 (02:50→23:00)
[2019-12-01] MEDS: ALBUTEROL SULFATE 2.5 MG/3 ML NEBU NEB SCH ×6 (02:50→23:00)
[2019-12-01] MEDS: CHOLECALCIFEROL 1,000 UNIT TABLET GT SCH (05:42)
[2019-12-01] MEDS: BISACODYL 10 MG SUPP.RECT RC PRN (06:52)
[2019-12-01] MEDS: BUDESONIDE 0.5 MG/2 ML NEBU NEB SCH ×2 (07:15→20:17)
[2019-12-01 08:00] VITALS: BP 133/77
[2019-12-01] MEDS: HYDROGEN PEROXIDE 3% 118 ML BOTTLE TP SCH ×2 (09:05→21:13)
[2019-12-01] MEDS: CALCIUM CARBONATE 500 MG TABLET GT SCH ×2 (09:18→20:38)
[2019-12-01] MEDS: DOCUSATE SODIUM 100 MG/10 ML LIQUID UDC GT SCH (09:18)
[2019-12-01] MEDS: NUTRISOURCE FIBER 4 GM PACKET GT SCH ×2 (09:18→20:38)
[2019-12-01] MEDS: BACLOFEN 10 MG TABLET GT SCH ×2 (09:18→20:38)
[2019-12-01] MEDS: Z GUARD REMEDY PASTE 57 GM TUBE TOP SCH ×2 (09:19→20:38)
--- NOTE | 2019-12-01 09:46 | NUR ---
SEEN AND EXAMINED BY DR. REAVES AND BENNYO.
[2019-12-01] MEDS: JEVITY 1.2 1000 ML LIQUID GT PRN (17:27)
[2019-12-01] MEDS: ATORVASTATIN 10 MG TABLET GT SCH (20:38)
[2019-12-01 20:43] VITALS: BP 128/74
[2019-12-02] MEDS: IPRATROPIUM BROMIDE 0.5 MG/2.5 ML NEBU NEB SCH ×6 (03:09→22:43)
[2019-12-02] MEDS: ALBUTEROL SULFATE 2.5 MG/3 ML NEBU NEB SCH ×6 (03:09→22:43)
[2019-12-02] MEDS: CHOLECALCIFEROL 1,000 UNIT TABLET GT SCH (05:48)
[2019-12-02] MEDS: BUDESONIDE 0.5 MG/2 ML NEBU NEB SCH ×2 (07:52→19:51)
[2019-12-02 08:00] VITALS: BP 121/81
[2019-12-02] MEDS: Z GUARD REMEDY PASTE 57 GM TUBE TOP SCH ×2 (08:53→20:29)
[2019-12-02] MEDS: BACLOFEN 10 MG TABLET GT SCH ×2 (08:53→20:29)
[2019-12-02] MEDS: CALCIUM CARBONATE 500 MG TABLET GT SCH ×2 (08:53→20:29)
[2019-12-02] MEDS: NUTRISOURCE FIBER 4 GM PACKET GT SCH ×2 (08:53→20:29)
[2019-12-02] MEDS: DOCUSATE SODIUM 100 MG/10 ML LIQUID UDC GT SCH (08:53)
[2019-12-02] MEDS: HYDROGEN PEROXIDE 3% 118 ML BOTTLE TP SCH ×2 (09:15→20:58)
--- NOTE | 2019-12-02 16:26 | NUR ---
INTERDISCIPLINARY PLAN OF CARE CONFERENCE was held today. Patient's family lives [id number] and they do not participate in the IDT meetings. Dr. Underwood and the Interdisciplinary Team reviewed the current plan of care in detail. RN reported on patient's current medical condition. See RN IDT conference notes. No major changes in condition were reported. See all disciplines IDT notes and physician's progress notes for additional details.
--- NOTE | 2019-12-02 16:32 | NUR ---
Pharmacy Update from Today's 12/02/19 IDT Meeting: VS: Temp 97.4 BP 121/81 HR 73 LABS: (from 10/05/19, no new labs) Wbc 5.6 H/H 15.4/45.3 Plt 159 Na 139 K 4.2 Cl 102 CO2 31 BUN/SCr 15/0.5 BS 101 Ca 9.6 MEDICATION USE REVIEWED: > Pt not on any anti-psych or anti-seizure medications > PRN MED USAGE: (October) Tylenol for pain used x 0 Tylenol for temp used x 0 Bisacodyl PRN x 3 NEW ORDERS NOTED: > NA Pt was reviewed and discussed in depth with no medication concerns or issues reported at this time and no further recs from rx at this time. Pt remains stable on current regimen, will continue to follow.
[2019-12-02] MEDS: BISACODYL 10 MG SUPP.RECT RC PRN (17:24)
[2019-12-02] MEDS: JEVITY 1.2 1000 ML LIQUID GT PRN (18:59)
[2019-12-02 20:00] VITALS: BP 113/59
[2019-12-02] MEDS: ATORVASTATIN 10 MG TABLET GT SCH (20:29)
[2019-12-02] MEDS: MULTIVIT, IRON, MIN NO. 8, FA TABLET GT SCH (20:29)
[2019-12-03] MEDS: ALBUTEROL SULFATE 2.5 MG/3 ML NEBU NEB SCH ×6 (02:48→22:32)
[2019-12-03] MEDS: IPRATROPIUM BROMIDE 0.5 MG/2.5 ML NEBU NEB SCH ×6 (02:48→22:32)
[2019-12-03] MEDS: CHOLECALCIFEROL 1,000 UNIT TABLET GT SCH (05:32)
[2019-12-03] MEDS: BUDESONIDE 0.5 MG/2 ML NEBU NEB SCH ×2 (07:00→20:16)
[2019-12-03] MEDS: NUTRISOURCE FIBER 4 GM PACKET GT SCH ×2 (09:18→20:40)
[2019-12-03] MEDS: BACLOFEN 10 MG TABLET GT SCH ×2 (09:18→20:37)
[2019-12-03] MEDS: DOCUSATE SODIUM 100 MG/10 ML LIQUID UDC GT SCH (09:18)
[2019-12-03] MEDS: CALCIUM CARBONATE 500 MG TABLET GT SCH ×2 (09:19→20:40)
[2019-12-03] MEDS: Z GUARD REMEDY PASTE 57 GM TUBE TOP SCH ×2 (09:19→20:40)
[2019-12-03] MEDS: HYDROGEN PEROXIDE 3% 118 ML BOTTLE TP SCH ×2 (09:30→21:24)
[2019-12-03 10:33] VITALS: BP 110/71
[2019-12-03] MEDS: NEOMY/BACITRA/POLYMYXIN B OINT UD PACKET TP SCH (13:22)
[2019-12-03 20:00] VITALS: BP 129/73
[2019-12-03] MEDS: ATORVASTATIN 10 MG TABLET GT SCH (20:37)
[2019-12-04] MEDS: IPRATROPIUM BROMIDE 0.5 MG/2.5 ML NEBU NEB SCH ×6 (02:47→23:05)
[2019-12-04] MEDS: ALBUTEROL SULFATE 2.5 MG/3 ML NEBU NEB SCH ×6 (02:47→23:05)
[2019-12-04] MEDS: CHOLECALCIFEROL 1,000 UNIT TABLET GT SCH (05:50)
[2019-12-04] MEDS: BUDESONIDE 0.5 MG/2 ML NEBU NEB SCH ×2 (07:00→20:20)
[2019-12-04] MEDS: NEOMY/BACITRA/POLYMYXIN B OINT UD PACKET TP SCH (08:35)
[2019-12-04] MEDS: BACLOFEN 10 MG TABLET GT SCH ×2 (08:35→20:33)
[2019-12-04] MEDS: Z GUARD REMEDY PASTE 57 GM TUBE TOP SCH ×2 (08:35→20:33)
[2019-12-04] MEDS: CALCIUM CARBONATE 500 MG TABLET GT SCH ×2 (08:35→20:33)
[2019-12-04] MEDS: NUTRISOURCE FIBER 4 GM PACKET GT SCH ×2 (08:35→20:33)
[2019-12-04] MEDS: DOCUSATE SODIUM 100 MG/10 ML LIQUID UDC GT SCH (08:36)
[2019-12-04] MEDS: HYDROGEN PEROXIDE 3% 118 ML BOTTLE TP SCH ×2 (09:14→20:50)
[2019-12-04 13:47] VITALS: BP 106/70
[2019-12-04 20:06] VITALS: BP 109/62
[2019-12-04] MEDS: ATORVASTATIN 10 MG TABLET GT SCH (20:33)
[2019-12-04] MEDS: MULTIVIT, IRON, MIN NO. 8, FA TABLET GT SCH (20:33)
[2019-12-05] MEDS: JEVITY 1.2 1000 ML LIQUID GT PRN (02:12)
[2019-12-05] MEDS: ALBUTEROL SULFATE 2.5 MG/3 ML NEBU NEB SCH ×6 (03:26→23:03)
[2019-12-05] MEDS: IPRATROPIUM BROMIDE 0.5 MG/2.5 ML NEBU NEB SCH ×6 (03:26→23:03)
[2019-12-05] MEDS: CHOLECALCIFEROL 1,000 UNIT TABLET GT SCH (05:36)
[2019-12-05 08:02] VITALS: BP 113/81
[2019-12-05] MEDS: BUDESONIDE 0.5 MG/2 ML NEBU NEB SCH ×2 (08:26→20:29)
[2019-12-05] MEDS: BACLOFEN 10 MG TABLET GT SCH ×2 (08:55→20:33)
[2019-12-05] MEDS: NUTRISOURCE FIBER 4 GM PACKET GT SCH ×2 (08:55→20:33)
[2019-12-05] MEDS: Z GUARD REMEDY PASTE 57 GM TUBE TOP SCH ×2 (08:55→20:34)
[2019-12-05] MEDS: CALCIUM CARBONATE 500 MG TABLET GT SCH ×2 (08:55→20:34)
[2019-12-05] MEDS: DOCUSATE SODIUM 100 MG/10 ML LIQUID UDC GT SCH (08:55)
[2019-12-05] MEDS: NEOMY/BACITRA/POLYMYXIN B OINT UD PACKET TP SCH (08:56)
[2019-12-05] MEDS: HYDROGEN PEROXIDE 3% 118 ML BOTTLE TP SCH ×2 (10:20→21:59)
[2019-12-05] MEDS: ATORVASTATIN 10 MG TABLET GT SCH (20:33)
[2019-12-05 20:59] VITALS: BP 126/76
[2019-12-06] MEDS: IPRATROPIUM BROMIDE 0.5 MG/2.5 ML NEBU NEB SCH ×6 (02:30→23:15)
[2019-12-06] MEDS: ALBUTEROL SULFATE 2.5 MG/3 ML NEBU NEB SCH ×6 (02:30→23:15)
[2019-12-06] MEDS: JEVITY 1.2 1000 ML LIQUID GT PRN (04:03)
[2019-12-06] MEDS: CHOLECALCIFEROL 1,000 UNIT TABLET GT SCH (06:27)
[2019-12-06] MEDS: BUDESONIDE 0.5 MG/2 ML NEBU NEB SCH ×2 (08:15→20:07)
[2019-12-06] MEDS: HYDROGEN PEROXIDE 3% 118 ML BOTTLE TP SCH ×2 (09:00→20:07)
[2019-12-06] MEDS: DOCUSATE SODIUM 100 MG/10 ML LIQUID UDC GT SCH (09:21)
[2019-12-06] MEDS: CALCIUM CARBONATE 500 MG TABLET GT SCH ×2 (09:22→20:51)
[2019-12-06] MEDS: NEOMY/BACITRA/POLYMYXIN B OINT UD PACKET TP SCH (09:22)
[2019-12-06] MEDS: BACLOFEN 10 MG TABLET GT SCH ×2 (09:22→20:51)
[2019-12-06] MEDS: Z GUARD REMEDY PASTE 57 GM TUBE TOP SCH ×2 (09:22→20:51)
[2019-12-06] MEDS: NUTRISOURCE FIBER 4 GM PACKET GT SCH ×2 (09:22→20:51)
[2019-12-06 11:56] VITALS: BP 116/79
[2019-12-06] MEDS: BISACODYL 10 MG SUPP.RECT RC PRN (16:47)
[2019-12-06] MEDS: MULTIVIT, IRON, MIN NO. 8, FA TABLET GT SCH (20:51)
[2019-12-06] MEDS: ATORVASTATIN 10 MG TABLET GT SCH (20:51)
[2019-12-06 22:46] VITALS: BP 105/73
[2019-12-07] MEDS: ALBUTEROL SULFATE 2.5 MG/3 ML NEBU NEB SCH ×6 (02:30→23:34)
[2019-12-07] MEDS: IPRATROPIUM BROMIDE 0.5 MG/2.5 ML NEBU NEB SCH ×6 (02:30→23:34)
[2019-12-07] MEDS: CHOLECALCIFEROL 1,000 UNIT TABLET GT SCH (05:45)
[2019-12-07 08:00] VITALS: BP 102/78
[2019-12-07] MEDS: BACLOFEN 10 MG TABLET GT SCH ×2 (08:02→20:39)
[2019-12-07] MEDS: DOCUSATE SODIUM 100 MG/10 ML LIQUID UDC GT SCH (08:02)
[2019-12-07] MEDS: CALCIUM CARBONATE 500 MG TABLET GT SCH ×2 (08:02→20:39)
[2019-12-07] MEDS: NUTRISOURCE FIBER 4 GM PACKET GT SCH ×2 (08:02→20:39)
[2019-12-07] MEDS: Z GUARD REMEDY PASTE 57 GM TUBE TOP SCH ×2 (08:02→20:39)
[2019-12-07] MEDS: NEOMY/BACITRA/POLYMYXIN B OINT UD PACKET TP SCH (08:03)
[2019-12-07] MEDS: HYDROGEN PEROXIDE 3% 118 ML BOTTLE TP SCH ×2 (08:20→21:29)
[2019-12-07] MEDS: BUDESONIDE 0.5 MG/2 ML NEBU NEB SCH ×2 (08:20→20:15)
[2019-12-07] MEDS: JEVITY 1.2 1000 ML LIQUID GT PRN (12:17)
[2019-12-07] MEDS: ATORVASTATIN 10 MG TABLET GT SCH (20:39)
[2019-12-07 23:03] VITALS: BP 100/64
[2019-12-08] MEDS: IPRATROPIUM BROMIDE 0.5 MG/2.5 ML NEBU NEB SCH ×6 (03:23→22:40)
[2019-12-08] MEDS: ALBUTEROL SULFATE 2.5 MG/3 ML NEBU NEB SCH ×6 (03:23→22:40)
[2019-12-08] MEDS: CHOLECALCIFEROL 1,000 UNIT TABLET GT SCH (05:42)
[2019-12-08] MEDS: BUDESONIDE 0.5 MG/2 ML NEBU NEB SCH ×2 (07:04→19:46)
[2019-12-08] MEDS: HYDROGEN PEROXIDE 3% 118 ML BOTTLE TP SCH ×2 (08:20→21:14)
[2019-12-08] MEDS: DOCUSATE SODIUM 100 MG/10 ML LIQUID UDC GT SCH (09:29)
[2019-12-08] MEDS: CALCIUM CARBONATE 500 MG TABLET GT SCH ×2 (09:30→20:14)
[2019-12-08] MEDS: Z GUARD REMEDY PASTE 57 GM TUBE TOP SCH ×2 (09:30→20:14)
[2019-12-08] MEDS: BACLOFEN 10 MG TABLET GT SCH ×2 (09:30→20:14)
[2019-12-08] MEDS: NUTRISOURCE FIBER 4 GM PACKET GT SCH ×2 (09:30→20:14)
[2019-12-08] MEDS: NEOMY/BACITRA/POLYMYXIN B OINT UD PACKET TP SCH (09:31)
[2019-12-08] MEDS: ATORVASTATIN 10 MG TABLET GT SCH (20:14)
[2019-12-08] MEDS: MULTIVIT, IRON, MIN NO. 8, FA TABLET GT SCH (20:14)
[2019-12-08 20:29] VITALS: BP 125/82
[2019-12-09] MEDS: IPRATROPIUM BROMIDE 0.5 MG/2.5 ML NEBU NEB SCH ×6 (02:47→23:01)
[2019-12-09] MEDS: ALBUTEROL SULFATE 2.5 MG/3 ML NEBU NEB SCH ×6 (02:47→23:01)
[2019-12-09] MEDS: CHOLECALCIFEROL 1,000 UNIT TABLET GT SCH (05:38)
[2019-12-09] MEDS: BUDESONIDE 0.5 MG/2 ML NEBU NEB SCH ×2 (07:17→20:25)
[2019-12-09 07:30] VITALS: BP 117/79
[2019-12-09] MEDS: HYDROGEN PEROXIDE 3% 118 ML BOTTLE TP SCH ×2 (08:29→20:25)
[2019-12-09] MEDS: NEOMY/BACITRA/POLYMYXIN B OINT UD PACKET TP SCH (08:40)
[2019-12-09] MEDS: BACLOFEN 10 MG TABLET GT SCH ×2 (08:40→20:26)
[2019-12-09] MEDS: CALCIUM CARBONATE 500 MG TABLET GT SCH ×2 (08:40→20:26)
[2019-12-09] MEDS: NUTRISOURCE FIBER 4 GM PACKET GT SCH ×2 (08:40→20:26)
[2019-12-09] MEDS: Z GUARD REMEDY PASTE 57 GM TUBE TOP SCH ×2 (08:40→20:26)
[2019-12-09] MEDS: DOCUSATE SODIUM 100 MG/10 ML LIQUID UDC GT SCH (08:40)
[2019-12-09] MEDS: ATORVASTATIN 10 MG TABLET GT SCH (20:26)
[2019-12-09] MEDS: JEVITY 1.2 1000 ML LIQUID GT PRN (20:34)
[2019-12-09 22:13] VITALS: BP 120/69
[2019-12-10] MEDS: ALBUTEROL SULFATE 2.5 MG/3 ML NEBU NEB SCH ×6 (02:31→23:42)
[2019-12-10] MEDS: IPRATROPIUM BROMIDE 0.5 MG/2.5 ML NEBU NEB SCH ×6 (02:31→23:42)
[2019-12-10] MEDS: CHOLECALCIFEROL 1,000 UNIT TABLET GT SCH (06:33)
[2019-12-10] MEDS: BUDESONIDE 0.5 MG/2 ML NEBU NEB SCH ×2 (07:45→20:25)
[2019-12-10] MEDS: BACLOFEN 10 MG TABLET GT SCH ×2 (08:03→20:19)
[2019-12-10] MEDS: DOCUSATE SODIUM 100 MG/10 ML LIQUID UDC GT SCH (08:03)
[2019-12-10] MEDS: Z GUARD REMEDY PASTE 57 GM TUBE TOP SCH ×2 (08:07→20:20)
[2019-12-10] MEDS: NUTRISOURCE FIBER 4 GM PACKET GT SCH ×2 (08:07→20:19)
[2019-12-10] MEDS: CALCIUM CARBONATE 500 MG TABLET GT SCH ×2 (08:07→20:20)
[2019-12-10] MEDS: NEOMY/BACITRA/POLYMYXIN B OINT UD PACKET TP SCH (09:00)
[2019-12-10] MEDS: HYDROGEN PEROXIDE 3% 118 ML BOTTLE TP SCH ×2 (09:00→21:49)
[2019-12-10 11:00] VITALS: BP 141/88
[2019-12-10] MEDS: BISACODYL 10 MG SUPP.RECT RC PRN (18:53)
[2019-12-10 20:00] VITALS: BP 112/76
[2019-12-10] MEDS: ATORVASTATIN 10 MG TABLET GT SCH (20:19)
[2019-12-10] MEDS: MULTIVIT, IRON, MIN NO. 8, FA TABLET GT SCH (20:20)
[2019-12-10] MEDS: JEVITY 1.2 1000 ML LIQUID GT PRN (20:36)
[2019-12-11] MEDS: ALBUTEROL SULFATE 2.5 MG/3 ML NEBU NEB SCH ×6 (03:50→23:34)
[2019-12-11] MEDS: IPRATROPIUM BROMIDE 0.5 MG/2.5 ML NEBU NEB SCH ×6 (03:50→23:34)
[2019-12-11] MEDS: CHOLECALCIFEROL 1,000 UNIT TABLET GT SCH (06:07)
[2019-12-11] MEDS: BUDESONIDE 0.5 MG/2 ML NEBU NEB SCH ×2 (07:18→20:15)
[2019-12-11 08:00] VITALS: BP 117/83
[2019-12-11] MEDS: DOCUSATE SODIUM 100 MG/10 ML LIQUID UDC GT SCH (08:51)
[2019-12-11] MEDS: Z GUARD REMEDY PASTE 57 GM TUBE TOP SCH ×2 (08:53→21:04)
[2019-12-11] MEDS: CALCIUM CARBONATE 500 MG TABLET GT SCH ×2 (08:53→21:04)
[2019-12-11] MEDS: NUTRISOURCE FIBER 4 GM PACKET GT SCH ×2 (08:53→21:04)
[2019-12-11] MEDS: BACLOFEN 10 MG TABLET GT SCH ×2 (08:53→21:04)
[2019-12-11] MEDS: HYDROGEN PEROXIDE 3% 118 ML BOTTLE TP SCH ×2 (09:00→21:23)
[2019-12-11] MEDS: NEOMY/BACITRA/POLYMYXIN B OINT UD PACKET TP SCH (09:00)
[2019-12-11 20:00] VITALS: BP 110/88
[2019-12-11] MEDS: ATORVASTATIN 10 MG TABLET GT SCH (21:04)
[2019-12-12] MEDS: ALBUTEROL SULFATE 2.5 MG/3 ML NEBU NEB SCH ×6 (03:06→23:47)
[2019-12-12] MEDS: IPRATROPIUM BROMIDE 0.5 MG/2.5 ML NEBU NEB SCH ×6 (03:06→23:47)
[2019-12-12] MEDS: CHOLECALCIFEROL 1,000 UNIT TABLET GT SCH (06:07)
[2019-12-12] MEDS: BUDESONIDE 0.5 MG/2 ML NEBU NEB SCH ×2 (07:06→19:37)
[2019-12-12 08:00] VITALS: BP 117/83
[2019-12-12] MEDS: NUTRISOURCE FIBER 4 GM PACKET GT SCH ×2 (08:45→20:40)
[2019-12-12] MEDS: DOCUSATE SODIUM 100 MG/10 ML LIQUID UDC GT SCH (08:46)
[2019-12-12] MEDS: NEOMY/BACITRA/POLYMYXIN B OINT UD PACKET TP SCH (08:47)
[2019-12-12] MEDS: Z GUARD REMEDY PASTE 57 GM TUBE TOP SCH ×2 (08:47→20:40)
[2019-12-12] MEDS: HYDROGEN PEROXIDE 3% 118 ML BOTTLE TP SCH ×3 (08:47→19:37)
[2019-12-12] MEDS: BACLOFEN 10 MG TABLET GT SCH ×2 (08:49→20:40)
[2019-12-12] MEDS: CALCIUM CARBONATE 500 MG TABLET GT SCH ×2 (08:50→20:40)
[2019-12-12] MEDS: JEVITY 1.2 1000 ML LIQUID GT PRN (14:22)
[2019-12-12 20:00] VITALS: BP 134/83
[2019-12-12] MEDS: ATORVASTATIN 10 MG TABLET GT SCH (20:40)
[2019-12-12] MEDS: MULTIVIT, IRON, MIN NO. 8, FA TABLET GT SCH (20:40)
[2019-12-13] MEDS: ALBUTEROL SULFATE 2.5 MG/3 ML NEBU NEB SCH ×6 (03:07→23:01)
[2019-12-13] MEDS: IPRATROPIUM BROMIDE 0.5 MG/2.5 ML NEBU NEB SCH ×6 (03:07→23:01)
[2019-12-13] MEDS: CHOLECALCIFEROL 1,000 UNIT TABLET GT SCH (05:35)
[2019-12-13] MEDS: BUDESONIDE 0.5 MG/2 ML NEBU NEB SCH ×2 (07:24→19:45)
[2019-12-13] MEDS: DOCUSATE SODIUM 100 MG/10 ML LIQUID UDC GT SCH (09:44)
[2019-12-13] MEDS: Z GUARD REMEDY PASTE 57 GM TUBE TOP SCH ×2 (09:45→20:47)
[2019-12-13] MEDS: NUTRISOURCE FIBER 4 GM PACKET GT SCH ×2 (09:45→20:47)
[2019-12-13] MEDS: HYDROGEN PEROXIDE 3% 118 ML BOTTLE TP SCH ×2 (09:45→21:10)
[2019-12-13] MEDS: CALCIUM CARBONATE 500 MG TABLET GT SCH ×2 (09:53→20:47)
[2019-12-13] MEDS: BACLOFEN 10 MG TABLET GT SCH ×2 (09:56→20:47)
[2019-12-13 12:25] VITALS: BP 134/85
[2019-12-13] MEDS: ATORVASTATIN 10 MG TABLET GT SCH (20:47)
[2019-12-13 22:30] VITALS: BP 110/75
[2019-12-14] MEDS: IPRATROPIUM BROMIDE 0.5 MG/2.5 ML NEBU NEB SCH ×6 (03:01→22:30)
[2019-12-14] MEDS: ALBUTEROL SULFATE 2.5 MG/3 ML NEBU NEB SCH ×6 (03:01→22:30)
[2019-12-14] MEDS: CHOLECALCIFEROL 1,000 UNIT TABLET GT SCH (05:41)
[2019-12-14] MEDS: BUDESONIDE 0.5 MG/2 ML NEBU NEB SCH ×2 (07:32→19:48)
[2019-12-14] MEDS: HYDROGEN PEROXIDE 3% 118 ML BOTTLE TP SCH ×2 (08:36→20:51)
[2019-12-14] MEDS: NUTRISOURCE FIBER 4 GM PACKET GT SCH ×2 (08:51→20:44)
[2019-12-14] MEDS: DOCUSATE SODIUM 100 MG/10 ML LIQUID UDC GT SCH (08:51)
[2019-12-14] MEDS: Z GUARD REMEDY PASTE 57 GM TUBE TOP SCH ×2 (08:52→20:44)
[2019-12-14] MEDS: CALCIUM CARBONATE 500 MG TABLET GT SCH ×2 (08:52→20:44)
[2019-12-14] MEDS: BACLOFEN 10 MG TABLET GT SCH ×2 (09:00→20:44)
[2019-12-14 11:45] VITALS: BP 106/69
[2019-12-14] MEDS: MULTIVIT, IRON, MIN NO. 8, FA TABLET GT SCH (20:44)
[2019-12-14] MEDS: ATORVASTATIN 10 MG TABLET GT SCH (20:44)
[2019-12-14 22:17] VITALS: BP 136/79
[2019-12-15] MEDS: IPRATROPIUM BROMIDE 0.5 MG/2.5 ML NEBU NEB SCH ×5 (03:07→18:50)
[2019-12-15] MEDS: ALBUTEROL SULFATE 2.5 MG/3 ML NEBU NEB SCH ×5 (03:07→18:50)
[2019-12-15] MEDS: CHOLECALCIFEROL 1,000 UNIT TABLET GT SCH (05:32)
[2019-12-15] MEDS: BUDESONIDE 0.5 MG/2 ML NEBU NEB SCH ×2 (07:22→18:50)
[2019-12-15 08:30] VITALS: BP 116/74
[2019-12-15] MEDS: DOCUSATE SODIUM 100 MG/10 ML LIQUID UDC GT SCH (08:46)
[2019-12-15] MEDS: NUTRISOURCE FIBER 4 GM PACKET GT SCH ×2 (08:46→20:30)
[2019-12-15] MEDS: BACLOFEN 10 MG TABLET GT SCH ×2 (08:46→20:30)
[2019-12-15] MEDS: CALCIUM CARBONATE 500 MG TABLET GT SCH ×2 (08:46→20:35)
[2019-12-15] MEDS: Z GUARD REMEDY PASTE 57 GM TUBE TOP SCH ×2 (08:46→20:30)
[2019-12-15] MEDS: HYDROGEN PEROXIDE 3% 118 ML BOTTLE TP SCH ×2 (09:00→20:31)
[2019-12-15] MEDS: JEVITY 1.2 1000 ML LIQUID GT PRN (18:34)
[2019-12-15 20:30] VITALS: BP 146/69
[2019-12-15] MEDS: ATORVASTATIN 10 MG TABLET GT SCH (20:30)
[2019-12-16] MEDS: ALBUTEROL SULFATE 2.5 MG/3 ML NEBU NEB SCH ×5 (00:11→19:15)
[2019-12-16] MEDS: IPRATROPIUM BROMIDE 0.5 MG/2.5 ML NEBU NEB SCH ×5 (00:11→19:15)
[2019-12-16] MEDS: CHOLECALCIFEROL 1,000 UNIT TABLET GT SCH (05:47)
[2019-12-16] MEDS: BUDESONIDE 0.5 MG/2 ML NEBU NEB SCH ×2 (07:05→19:25)
[2019-12-16 07:52] VITALS: BP 134/78
[2019-12-16] MEDS: BACLOFEN 10 MG TABLET GT SCH ×2 (08:46→20:37)
[2019-12-16] MEDS: NUTRISOURCE FIBER 4 GM PACKET GT SCH ×2 (08:46→20:37)
[2019-12-16] MEDS: DOCUSATE SODIUM 100 MG/10 ML LIQUID UDC GT SCH (08:46)
[2019-12-16] MEDS: CALCIUM CARBONATE 500 MG TABLET GT SCH ×2 (08:46→20:40)
[2019-12-16] MEDS: Z GUARD REMEDY PASTE 57 GM TUBE TOP SCH ×2 (08:46→20:41)
[2019-12-16] MEDS: HYDROGEN PEROXIDE 3% 118 ML BOTTLE TP SCH ×2 (09:00→21:28)
[2019-12-16] MEDS: JEVITY 1.2 1000 ML LIQUID GT PRN (17:38)
[2019-12-16 20:27] VITALS: BP 102/54
[2019-12-16] MEDS: ATORVASTATIN 10 MG TABLET GT SCH (20:37)
[2019-12-16] MEDS: MULTIVIT, IRON, MIN NO. 8, FA TABLET GT SCH (20:40)
[2019-12-17] MEDS: ALBUTEROL SULFATE 2.5 MG/3 ML NEBU NEB SCH ×7 (00:19→22:30)
[2019-12-17] MEDS: IPRATROPIUM BROMIDE 0.5 MG/2.5 ML NEBU NEB SCH ×7 (00:19→22:30)
[2019-12-17] MEDS: CHOLECALCIFEROL 1,000 UNIT TABLET GT SCH (05:59)
[2019-12-17] MEDS: BUDESONIDE 0.5 MG/2 ML NEBU NEB SCH ×2 (07:24→19:33)
[2019-12-17 08:30] VITALS: BP 114/57
[2019-12-17] MEDS: HYDROGEN PEROXIDE 3% 118 ML BOTTLE TP SCH ×2 (09:00→19:28)
[2019-12-17] MEDS: BACLOFEN 10 MG TABLET GT SCH ×2 (09:09→20:41)
[2019-12-17] MEDS: DOCUSATE SODIUM 100 MG/10 ML LIQUID UDC GT SCH (09:09)
[2019-12-17] MEDS: CALCIUM CARBONATE 500 MG TABLET GT SCH ×2 (09:10→20:41)
[2019-12-17] MEDS: Z GUARD REMEDY PASTE 57 GM TUBE TOP SCH ×2 (09:10→20:41)
[2019-12-17] MEDS: NUTRISOURCE FIBER 4 GM PACKET GT SCH ×2 (09:10→20:41)
[2019-12-17] MEDS: JEVITY 1.2 1000 ML LIQUID GT PRN (17:17)
[2019-12-17] MEDS: BISACODYL 10 MG SUPP.RECT RC PRN (17:24)
--- NOTE | 2019-12-17 17:45 | NUR ---
Noted pt last BM 12/13/19 administered PRN dulcolax supp as ordered.
[2019-12-17] MEDS: ATORVASTATIN 10 MG TABLET GT SCH (20:41)
[2019-12-17 22:30] VITALS: BP 102/64
[2019-12-18] MEDS: ALBUTEROL SULFATE 2.5 MG/3 ML NEBU NEB SCH ×6 (02:47→22:32)
[2019-12-18] MEDS: IPRATROPIUM BROMIDE 0.5 MG/2.5 ML NEBU NEB SCH ×6 (02:47→22:32)
[2019-12-18] MEDS: CHOLECALCIFEROL 1,000 UNIT TABLET GT SCH (06:16)
[2019-12-18 08:00] VITALS: BP 110/66
[2019-12-18] MEDS: Z GUARD REMEDY PASTE 57 GM TUBE TOP SCH ×2 (08:40→20:34)
[2019-12-18] MEDS: DOCUSATE SODIUM 100 MG/10 ML LIQUID UDC GT SCH (08:40)
[2019-12-18] MEDS: BACLOFEN 10 MG TABLET GT SCH ×2 (08:40→20:33)
[2019-12-18] MEDS: NUTRISOURCE FIBER 4 GM PACKET GT SCH ×2 (08:40→20:33)
[2019-12-18] MEDS: BUDESONIDE 0.5 MG/2 ML NEBU NEB SCH ×2 (08:40→19:03)
[2019-12-18] MEDS: CALCIUM CARBONATE 500 MG TABLET GT SCH ×2 (08:40→20:33)
[2019-12-18] MEDS: HYDROGEN PEROXIDE 3% 118 ML BOTTLE TP SCH ×2 (09:50→21:00)
[2019-12-18 20:00] VITALS: BP 136/54
[2019-12-18] MEDS: ATORVASTATIN 10 MG TABLET GT SCH (20:33)
[2019-12-18] MEDS: MULTIVIT, IRON, MIN NO. 8, FA TABLET GT SCH (20:34)
[2019-12-19] MEDS: JEVITY 1.2 1000 ML LIQUID GT PRN ×2 (02:00→23:05)
[2019-12-19] MEDS: IPRATROPIUM BROMIDE 0.5 MG/2.5 ML NEBU NEB SCH ×6 (03:59→23:47)
[2019-12-19] MEDS: ALBUTEROL SULFATE 2.5 MG/3 ML NEBU NEB SCH ×6 (03:59→23:47)
[2019-12-19] MEDS: CHOLECALCIFEROL 1,000 UNIT TABLET GT SCH (06:06)
[2019-12-19] MEDS: HYDROGEN PEROXIDE 3% 118 ML BOTTLE TP SCH ×2 (07:46→20:34)
[2019-12-19] MEDS: BUDESONIDE 0.5 MG/2 ML NEBU NEB SCH ×2 (07:46→19:20)
[2019-12-19 08:04] VITALS: BP 104/67
[2019-12-19] MEDS: DOCUSATE SODIUM 100 MG/10 ML LIQUID UDC GT SCH (08:25)
[2019-12-19] MEDS: NUTRISOURCE FIBER 4 GM PACKET GT SCH ×2 (08:25→20:34)
[2019-12-19] MEDS: BACLOFEN 10 MG TABLET GT SCH ×2 (08:25→20:34)
[2019-12-19] MEDS: CALCIUM CARBONATE 500 MG TABLET GT SCH ×2 (08:26→20:34)
[2019-12-19] MEDS: Z GUARD REMEDY PASTE 57 GM TUBE TOP SCH ×2 (08:27→20:34)
[2019-12-19] MEDS: ATORVASTATIN 10 MG TABLET GT SCH (20:34)
[2019-12-19 22:05] VITALS: BP 139/93
[2019-12-20] MEDS: ALBUTEROL SULFATE 2.5 MG/3 ML NEBU NEB SCH ×6 (04:23→23:30)
[2019-12-20] MEDS: IPRATROPIUM BROMIDE 0.5 MG/2.5 ML NEBU NEB SCH ×6 (04:23→23:30)
[2019-12-20] MEDS: CHOLECALCIFEROL 1,000 UNIT TABLET GT SCH (05:29)
[2019-12-20] MEDS: BUDESONIDE 0.5 MG/2 ML NEBU NEB SCH ×2 (07:30→19:28)
[2019-12-20 08:05] VITALS: BP 108/78
[2019-12-20] MEDS: BACLOFEN 10 MG TABLET GT SCH ×2 (08:11→21:07)
[2019-12-20] MEDS: NUTRISOURCE FIBER 4 GM PACKET GT SCH ×2 (08:11→21:07)
[2019-12-20] MEDS: DOCUSATE SODIUM 100 MG/10 ML LIQUID UDC GT SCH (08:11)
[2019-12-20] MEDS: CALCIUM CARBONATE 500 MG TABLET GT SCH ×2 (08:11→21:07)
[2019-12-20] MEDS: Z GUARD REMEDY PASTE 57 GM TUBE TOP SCH ×2 (08:11→21:07)
[2019-12-20] MEDS: HYDROGEN PEROXIDE 3% 118 ML BOTTLE TP SCH ×2 (09:00→21:00)
[2019-12-20] MEDS: MULTIVIT, IRON, MIN NO. 8, FA TABLET GT SCH (21:07)
[2019-12-20] MEDS: ATORVASTATIN 10 MG TABLET GT SCH (21:07)
[2019-12-20 22:53] VITALS: BP 101/67
[2019-12-21] MEDS: JEVITY 1.2 1000 ML LIQUID GT PRN (01:20)
[2019-12-21] MEDS: ALBUTEROL SULFATE 2.5 MG/3 ML NEBU NEB SCH ×6 (03:36→23:45)
[2019-12-21] MEDS: IPRATROPIUM BROMIDE 0.5 MG/2.5 ML NEBU NEB SCH ×6 (03:36→23:45)
[2019-12-21] MEDS: BISACODYL 10 MG SUPP.RECT RC PRN (04:55)
[2019-12-21] MEDS: CHOLECALCIFEROL 1,000 UNIT TABLET GT SCH (05:43)
--- NOTE | 2019-12-21 06:43 | NUR ---
No BM for the last 3 days. Administered PRN Dulcolax suppository as ordered. Continue to monitor. Will endorse accordingly to oncoming shift.
[2019-12-21] MEDS: BUDESONIDE 0.5 MG/2 ML NEBU NEB SCH ×2 (06:50→20:22)
[2019-12-21 08:05] VITALS: BP 98/65
[2019-12-21] MEDS: NUTRISOURCE FIBER 4 GM PACKET GT SCH ×2 (08:39→20:34)
[2019-12-21] MEDS: DOCUSATE SODIUM 100 MG/10 ML LIQUID UDC GT SCH (08:39)
[2019-12-21] MEDS: BACLOFEN 10 MG TABLET GT SCH ×2 (08:39→20:34)
[2019-12-21] MEDS: Z GUARD REMEDY PASTE 57 GM TUBE TOP SCH ×2 (08:40→20:35)
[2019-12-21] MEDS: HYDROGEN PEROXIDE 3% 118 ML BOTTLE TP SCH ×2 (08:40→20:52)
[2019-12-21] MEDS: CALCIUM CARBONATE 500 MG TABLET GT SCH ×2 (08:40→20:35)
[2019-12-21 19:52] VITALS: BP 96/51
[2019-12-21] MEDS: ATORVASTATIN 10 MG TABLET GT SCH (20:34)
[2019-12-22] MEDS: IPRATROPIUM BROMIDE 0.5 MG/2.5 ML NEBU NEB SCH ×6 (02:31→23:20)
[2019-12-22] MEDS: ALBUTEROL SULFATE 2.5 MG/3 ML NEBU NEB SCH ×6 (02:31→23:20)
[2019-12-22] MEDS: CHOLECALCIFEROL 1,000 UNIT TABLET GT SCH (05:33)
[2019-12-22] MEDS: JEVITY 1.2 1000 ML LIQUID GT PRN (06:57)
[2019-12-22 08:00] VITALS: BP 111/73
[2019-12-22] MEDS: BUDESONIDE 0.5 MG/2 ML NEBU NEB SCH ×2 (08:30→18:56)
[2019-12-22] MEDS: BACLOFEN 10 MG TABLET GT SCH ×2 (08:35→20:29)
[2019-12-22] MEDS: NUTRISOURCE FIBER 4 GM PACKET GT SCH ×2 (08:35→20:29)
[2019-12-22] MEDS: DOCUSATE SODIUM 100 MG/10 ML LIQUID UDC GT SCH (08:35)
[2019-12-22] MEDS: CALCIUM CARBONATE 500 MG TABLET GT SCH ×2 (08:35→20:29)
[2019-12-22] MEDS: Z GUARD REMEDY PASTE 57 GM TUBE TOP SCH ×2 (08:36→20:29)
[2019-12-22] MEDS: HYDROGEN PEROXIDE 3% 118 ML BOTTLE TP SCH ×2 (08:43→21:30)
--- NOTE | 2019-12-22 09:34 | NUR ---
Seen by Rocío Rosen, no new orders given at this time.
[2019-12-22] MEDS: ATORVASTATIN 10 MG TABLET GT SCH (20:29)
[2019-12-22] MEDS: MULTIVIT, IRON, MIN NO. 8, FA TABLET GT SCH (20:29)
[2019-12-22 20:30] VITALS: BP 112/61
[2019-12-23] MEDS: ALBUTEROL SULFATE 2.5 MG/3 ML NEBU NEB SCH ×6 (03:37→22:50)
[2019-12-23] MEDS: IPRATROPIUM BROMIDE 0.5 MG/2.5 ML NEBU NEB SCH ×6 (03:37→22:50)
[2019-12-23] MEDS: CHOLECALCIFEROL 1,000 UNIT TABLET GT SCH (05:56)
[2019-12-23] MEDS: BUDESONIDE 0.5 MG/2 ML NEBU NEB SCH ×2 (08:23→20:27)
[2019-12-23] MEDS: CALCIUM CARBONATE 500 MG TABLET GT SCH ×2 (08:53→20:29)
[2019-12-23] MEDS: NUTRISOURCE FIBER 4 GM PACKET GT SCH ×2 (08:53→20:29)
[2019-12-23] MEDS: DOCUSATE SODIUM 100 MG/10 ML LIQUID UDC GT SCH (08:53)
[2019-12-23] MEDS: BACLOFEN 10 MG TABLET GT SCH ×2 (08:53→20:29)
[2019-12-23] MEDS: Z GUARD REMEDY PASTE 57 GM TUBE TOP SCH ×2 (08:54→20:29)
[2019-12-23] MEDS: HYDROGEN PEROXIDE 3% 118 ML BOTTLE TP SCH ×2 (09:00→20:27)
[2019-12-23] MEDS: BISACODYL 10 MG SUPP.RECT RC PRN (09:04)
[2019-12-23 09:28] VITALS: BP 119/69
[2019-12-23] MEDS: JEVITY 1.2 1000 ML LIQUID GT PRN (15:03)
[2019-12-23 20:17] VITALS: BP 150/92
[2019-12-23] MEDS: ATORVASTATIN 10 MG TABLET GT SCH (20:29)
[2019-12-23 21:00] VITALS: BP 121/76
[2019-12-24] MEDS: IPRATROPIUM BROMIDE 0.5 MG/2.5 ML NEBU NEB SCH ×6 (03:04→23:00)
[2019-12-24] MEDS: ALBUTEROL SULFATE 2.5 MG/3 ML NEBU NEB SCH ×6 (03:04→23:00)
[2019-12-24] MEDS: CHOLECALCIFEROL 1,000 UNIT TABLET GT SCH (05:33)
[2019-12-24] MEDS: BUDESONIDE 0.5 MG/2 ML NEBU NEB SCH ×2 (06:45→19:45)
[2019-12-24 08:00] VITALS: BP 126/68
[2019-12-24] MEDS: DOCUSATE SODIUM 100 MG/10 ML LIQUID UDC GT SCH (08:43)
[2019-12-24] MEDS: CALCIUM CARBONATE 500 MG TABLET GT SCH ×2 (08:43→21:15)
[2019-12-24] MEDS: NUTRISOURCE FIBER 4 GM PACKET GT SCH ×2 (08:43→21:15)
[2019-12-24] MEDS: BACLOFEN 10 MG TABLET GT SCH ×2 (08:43→21:15)
[2019-12-24] MEDS: Z GUARD REMEDY PASTE 57 GM TUBE TOP SCH ×2 (08:44→21:16)
[2019-12-24] MEDS: HYDROGEN PEROXIDE 3% 118 ML BOTTLE TP SCH ×2 (09:05→21:00)
[2019-12-24 20:00] VITALS: BP 121/79
[2019-12-24] MEDS: ATORVASTATIN 10 MG TABLET GT SCH (21:15)
[2019-12-24] MEDS: MULTIVIT, IRON, MIN NO. 8, FA TABLET GT SCH (21:15)
[2019-12-25] MEDS: ALBUTEROL SULFATE 2.5 MG/3 ML NEBU NEB SCH ×6 (03:34→23:11)
[2019-12-25] MEDS: IPRATROPIUM BROMIDE 0.5 MG/2.5 ML NEBU NEB SCH ×6 (03:34→23:11)
[2019-12-25] MEDS: CHOLECALCIFEROL 1,000 UNIT TABLET GT SCH (05:37)
[2019-12-25] MEDS: BUDESONIDE 0.5 MG/2 ML NEBU NEB SCH ×2 (07:09→19:35)
[2019-12-25 07:52] VITALS: BP 127/68
[2019-12-25] MEDS: HYDROGEN PEROXIDE 3% 118 ML BOTTLE TP SCH ×2 (09:00→21:13)
--- NOTE | 2019-12-25 09:00 | NUR ---
SEEN AND EXAMINED BY MATILDA GARCIA N.P. AND WITH BENNYO.
[2019-12-25] MEDS: BACLOFEN 10 MG TABLET GT SCH ×2 (09:16→20:50)
[2019-12-25] MEDS: Z GUARD REMEDY PASTE 57 GM TUBE TOP SCH ×2 (09:16→20:50)
[2019-12-25] MEDS: DOCUSATE SODIUM 100 MG/10 ML LIQUID UDC GT SCH (09:16)
[2019-12-25] MEDS: CALCIUM CARBONATE 500 MG TABLET GT SCH ×2 (09:16→20:50)
[2019-12-25] MEDS: NUTRISOURCE FIBER 4 GM PACKET GT SCH ×2 (09:16→20:50)
[2019-12-25 20:00] VITALS: BP 126/93
[2019-12-25] MEDS: ATORVASTATIN 10 MG TABLET GT SCH (20:50)
[2019-12-26] MEDS: ALBUTEROL SULFATE 2.5 MG/3 ML NEBU NEB SCH ×6 (00:10→20:40)
[2019-12-26] MEDS: IPRATROPIUM BROMIDE 0.5 MG/2.5 ML NEBU NEB SCH ×6 (00:10→20:40)
[2019-12-26] MEDS: CHOLECALCIFEROL 1,000 UNIT TABLET GT SCH (05:44)
[2019-12-26] MEDS: BUDESONIDE 0.5 MG/2 ML NEBU NEB SCH ×2 (07:03→20:40)
[2019-12-26 08:08] VITALS: BP 104/63
[2019-12-26] MEDS: HYDROGEN PEROXIDE 3% 118 ML BOTTLE TP SCH ×2 (09:00→21:02)
[2019-12-26] MEDS: DOCUSATE SODIUM 100 MG/10 ML LIQUID UDC GT SCH (09:46)
[2019-12-26] MEDS: NUTRISOURCE FIBER 4 GM PACKET GT SCH ×2 (09:46→20:44)
[2019-12-26] MEDS: Z GUARD REMEDY PASTE 57 GM TUBE TOP SCH ×2 (09:47→20:47)
[2019-12-26] MEDS: CALCIUM CARBONATE 500 MG TABLET GT SCH ×2 (09:48→20:44)
[2019-12-26] MEDS: BACLOFEN 10 MG TABLET GT SCH ×2 (09:50→20:44)
--- NOTE | 2019-12-26 15:25 | NUR ---
SEEN BY DR. REAVES AND WITH NNO.
[2019-12-26 20:00] VITALS: BP 97/63
[2019-12-26] MEDS: ATORVASTATIN 10 MG TABLET GT SCH (20:44)
[2019-12-26] MEDS: MULTIVIT, IRON, MIN NO. 8, FA TABLET GT SCH (20:46)
[2019-12-27] MEDS: IPRATROPIUM BROMIDE 0.5 MG/2.5 ML NEBU NEB SCH ×6 (03:55→22:50)
[2019-12-27] MEDS: ALBUTEROL SULFATE 2.5 MG/3 ML NEBU NEB SCH ×6 (03:55→22:50)
[2019-12-27] MEDS: CHOLECALCIFEROL 1,000 UNIT TABLET GT SCH (05:52)
[2019-12-27 08:08] VITALS: BP 128/77
[2019-12-27] MEDS: BUDESONIDE 0.5 MG/2 ML NEBU NEB SCH ×2 (08:14→20:00)
[2019-12-27] MEDS: HYDROGEN PEROXIDE 3% 118 ML BOTTLE TP SCH ×2 (08:15→20:00)
[2019-12-27] MEDS: NUTRISOURCE FIBER 4 GM PACKET GT SCH ×2 (08:16→20:26)
[2019-12-27] MEDS: Z GUARD REMEDY PASTE 57 GM TUBE TOP SCH ×2 (08:16→20:26)
[2019-12-27] MEDS: CALCIUM CARBONATE 500 MG TABLET GT SCH ×2 (08:16→20:26)
[2019-12-27] MEDS: BACLOFEN 10 MG TABLET GT SCH ×2 (08:16→20:26)
[2019-12-27] MEDS: DOCUSATE SODIUM 100 MG/10 ML LIQUID UDC GT SCH (08:16)
--- NOTE | 2019-12-27 17:46 | NUR ---
LEFT FOOT 2ND FUNGAL TOENAIL TOENAIL MISSING,NAIL BED WITH NEW LOCAL TX FROM MATILDA MEADE AND PICTURE TAKEN,NO S/S OF LOCAL BLEEDING ,NO PAIN.
[2019-12-27 20:00] VITALS: BP 103/60
[2019-12-27] MEDS: ATORVASTATIN 10 MG TABLET GT SCH (20:26)
[2019-12-27] MEDS: JEVITY 1.2 1000 ML LIQUID GT PRN (23:13)
[2019-12-28] MEDS: IPRATROPIUM BROMIDE 0.5 MG/2.5 ML NEBU NEB SCH ×6 (02:50→22:56)
[2019-12-28] MEDS: ALBUTEROL SULFATE 2.5 MG/3 ML NEBU NEB SCH ×6 (02:50→22:56)
[2019-12-28] MEDS: CHOLECALCIFEROL 1,000 UNIT TABLET GT SCH (05:31)
[2019-12-28] MEDS: BUDESONIDE 0.5 MG/2 ML NEBU NEB SCH ×2 (08:00→20:00)
[2019-12-28 08:08] VITALS: BP 107/70
[2019-12-28] MEDS: BACLOFEN 10 MG TABLET GT SCH ×2 (09:00→20:23)
[2019-12-28] MEDS: Z GUARD REMEDY PASTE 57 GM TUBE TOP SCH ×2 (09:00→20:24)
[2019-12-28] MEDS: CALCIUM CARBONATE 500 MG TABLET GT SCH ×2 (09:00→20:24)
[2019-12-28] MEDS: NEOMY/BACITRA/POLYMYXIN B OINT UD PACKET TP SCH (09:00)
[2019-12-28] MEDS: NUTRISOURCE FIBER 4 GM PACKET GT SCH ×2 (09:00→20:23)
[2019-12-28] MEDS: DOCUSATE SODIUM 100 MG/10 ML LIQUID UDC GT SCH (09:00)
--- NOTE | 2019-12-28 09:06 | NUR ---
SEEN BY HALINA GREY N.P. AND WITH NNO.
[2019-12-28] MEDS: HYDROGEN PEROXIDE 3% 118 ML BOTTLE TP SCH ×2 (11:25→21:09)
[2019-12-28] MEDS: BISACODYL 10 MG SUPP.RECT RC PRN (18:00)
[2019-12-28] MEDS: ATORVASTATIN 10 MG TABLET GT SCH (20:23)
[2019-12-28] MEDS: MULTIVIT, IRON, MIN NO. 8, FA TABLET GT SCH (20:24)
[2019-12-28 20:38] VITALS: BP 113/83
[2019-12-29] MEDS: ALBUTEROL SULFATE 2.5 MG/3 ML NEBU NEB SCH ×6 (03:12→23:33)
[2019-12-29] MEDS: IPRATROPIUM BROMIDE 0.5 MG/2.5 ML NEBU NEB SCH ×6 (03:12→23:33)
[2019-12-29] MEDS: CHOLECALCIFEROL 1,000 UNIT TABLET GT SCH (05:40)
[2019-12-29] MEDS: BISACODYL 10 MG SUPP.RECT RC PRN (07:00)
[2019-12-29] MEDS: BUDESONIDE 0.5 MG/2 ML NEBU NEB SCH ×2 (07:15→20:19)
[2019-12-29 08:00] VITALS: BP 162/74
[2019-12-29 08:03] VITALS: BP 90/69
[2019-12-29] MEDS: HYDROGEN PEROXIDE 3% 118 ML BOTTLE TP SCH ×2 (09:00→20:19)
[2019-12-29] MEDS: BACLOFEN 10 MG TABLET GT SCH ×2 (09:03→20:57)
[2019-12-29] MEDS: DOCUSATE SODIUM 100 MG/10 ML LIQUID UDC GT SCH (09:03)
[2019-12-29] MEDS: NEOMY/BACITRA/POLYMYXIN B OINT UD PACKET TP SCH (09:04)
[2019-12-29] MEDS: Z GUARD REMEDY PASTE 57 GM TUBE TOP SCH ×2 (09:04→20:57)
[2019-12-29] MEDS: NUTRISOURCE FIBER 4 GM PACKET GT SCH ×2 (09:04→20:57)
[2019-12-29] MEDS: CALCIUM CARBONATE 500 MG TABLET GT SCH ×2 (09:04→20:57)
--- NOTE | 2019-12-29 09:55 | NUR ---
SEEN AND EXAMINED BY DR. REAVES AND WITH NNO AND ALSO AWARE OF LEFT FOOT 2ND TOENAIL MISSING FUNGAL NAIL
[2019-12-29 20:30] VITALS: BP 110/69
[2019-12-29] MEDS: ATORVASTATIN 10 MG TABLET GT SCH (20:57)
[2019-12-30] MEDS: IPRATROPIUM BROMIDE 0.5 MG/2.5 ML NEBU NEB SCH ×6 (03:16→22:43)
[2019-12-30] MEDS: ALBUTEROL SULFATE 2.5 MG/3 ML NEBU NEB SCH ×6 (03:16→22:44)
[2019-12-30] MEDS: CHOLECALCIFEROL 1,000 UNIT TABLET GT SCH (05:34)
[2019-12-30] MEDS: JEVITY 1.2 1000 ML LIQUID GT PRN (06:16)
[2019-12-30] MEDS: BUDESONIDE 0.5 MG/2 ML NEBU NEB SCH ×2 (07:00→19:27)
[2019-12-30 07:32] VITALS: BP 103/60
[2019-12-30] MEDS: DOCUSATE SODIUM 100 MG/10 ML LIQUID UDC GT SCH (08:46)
[2019-12-30] MEDS: CALCIUM CARBONATE 500 MG TABLET GT SCH ×2 (08:47→20:22)
[2019-12-30] MEDS: NUTRISOURCE FIBER 4 GM PACKET GT SCH ×2 (08:47→20:22)
[2019-12-30] MEDS: Z GUARD REMEDY PASTE 57 GM TUBE TOP SCH ×2 (08:47→20:22)
[2019-12-30] MEDS: BACLOFEN 10 MG TABLET GT SCH ×2 (08:47→20:22)
[2019-12-30] MEDS: NEOMY/BACITRA/POLYMYXIN B OINT UD PACKET TP SCH (08:48)
[2019-12-30] MEDS: HYDROGEN PEROXIDE 3% 118 ML BOTTLE TP SCH ×2 (09:59→20:42)
--- NOTE | 2019-12-30 13:55 | NUR ---
Pharmacy Update from Today's 12/30/19 IDT Meeting: VS: Temp 98.4 BP 103/60 HR 76 LABS: (from 10/05/19, no new labs) Wbc 5.6 H/H 15.4/45.3 Plt 159 Na 139 K 4.2 Cl 102 CO2 31 BUN/SCr 15/0.5 BS 101 Ca 9.6 MEDICATION USE REVIEWED: > Pt not on any anti-psych or anti-seizure medications > PRN MED USAGE: (November) Tylenol for pain used x 0 Tylenol for temp used x 0 Bisacodyl PRN x 7 NEW ORDERS NOTED: > NA Pt was reviewed and discussed in depth with no medication concerns or issues reported at this time and no further recs from rx at this time. Pt remains stable on current regimen, will continue to follow.
--- NOTE | 2019-12-30 14:47 | NUR ---
INTERDISCIPLINARY PLAN OF CARE CONFERENCE was held today. Patient's family does not participate in the IDT meetings. Dr. Underwood and the Interdisciplinary Team reviewed the current plan of care in detail. RN reported on patient's medical condition and current treatment for her toe nail. No major changes in condition were reported. See RN IDT conference notes. See also all other disciplines IDT notes and physician's progress notes for additional details.
[2019-12-30 20:00] VITALS: BP 93/50
[2019-12-30] MEDS: MULTIVIT, IRON, MIN NO. 8, FA TABLET GT SCH (20:22)
[2019-12-30] MEDS: ATORVASTATIN 10 MG TABLET GT SCH (20:22)
[2019-12-31] MEDS: IPRATROPIUM BROMIDE 0.5 MG/2.5 ML NEBU NEB SCH ×6 (03:10→22:50)
[2019-12-31] MEDS: ALBUTEROL SULFATE 2.5 MG/3 ML NEBU NEB SCH ×6 (03:10→22:50)
[2019-12-31] MEDS: CHOLECALCIFEROL 1,000 UNIT TABLET GT SCH (07:07)
[2019-12-31 08:00] VITALS: BP 116/75
[2019-12-31] MEDS: BUDESONIDE 0.5 MG/2 ML NEBU NEB SCH ×2 (08:09→20:20)
[2019-12-31] MEDS: HYDROGEN PEROXIDE 3% 118 ML BOTTLE TP SCH ×2 (09:00→20:20)
[2019-12-31] MEDS: NUTRISOURCE FIBER 4 GM PACKET GT SCH ×2 (09:16→20:24)
[2019-12-31] MEDS: DOCUSATE SODIUM 100 MG/10 ML LIQUID UDC GT SCH (09:16)
[2019-12-31] MEDS: BACLOFEN 10 MG TABLET GT SCH ×2 (09:16→20:24)
[2019-12-31] MEDS: NEOMY/BACITRA/POLYMYXIN B OINT UD PACKET TP SCH (09:17)
[2019-12-31] MEDS: CALCIUM CARBONATE 500 MG TABLET GT SCH ×2 (09:17→20:24)
[2019-12-31] MEDS: Z GUARD REMEDY PASTE 57 GM TUBE TOP SCH ×2 (09:17→20:24)
[2019-12-31] MEDS: JEVITY 1.2 1000 ML LIQUID GT PRN (11:06)
[2019-12-31 20:00] VITALS: BP 106/68
[2019-12-31] MEDS: ATORVASTATIN 10 MG TABLET GT SCH (20:24)
[2020-01-01] MEDS: IPRATROPIUM BROMIDE 0.5 MG/2.5 ML NEBU NEB SCH ×6 (02:50→23:02)
[2020-01-01] MEDS: ALBUTEROL SULFATE 2.5 MG/3 ML NEBU NEB SCH ×6 (02:50→23:02)
[2020-01-01] MEDS: CHOLECALCIFEROL 1,000 UNIT TABLET GT SCH (05:53)
[2020-01-01] MEDS: BUDESONIDE 0.5 MG/2 ML NEBU NEB SCH ×2 (07:10→20:16)
[2020-01-01 07:29] VITALS: BP 127/74
[2020-01-01] MEDS: DOCUSATE SODIUM 100 MG/10 ML LIQUID UDC GT SCH (08:48)
[2020-01-01] MEDS: Z GUARD REMEDY PASTE 57 GM TUBE TOP SCH ×2 (08:48→20:20)
[2020-01-01] MEDS: NUTRISOURCE FIBER 4 GM PACKET GT SCH ×2 (08:48→20:19)
[2020-01-01] MEDS: BACLOFEN 10 MG TABLET GT SCH ×2 (08:48→20:18)
[2020-01-01] MEDS: NEOMY/BACITRA/POLYMYXIN B OINT UD PACKET TP SCH (08:48)
[2020-01-01] MEDS: CALCIUM CARBONATE 500 MG TABLET GT SCH ×2 (08:48→20:19)
[2020-01-01] MEDS: HYDROGEN PEROXIDE 3% 118 ML BOTTLE TP SCH ×2 (09:00→21:50)
[2020-01-01] MEDS: JEVITY 1.2 1000 ML LIQUID GT PRN (15:08)
[2020-01-01] MEDS: BISACODYL 10 MG SUPP.RECT RC PRN (17:22)
[2020-01-01 20:00] VITALS: BP 128/66
[2020-01-01] MEDS: ATORVASTATIN 10 MG TABLET GT SCH (20:19)
[2020-01-01] MEDS: MULTIVIT, IRON, MIN NO. 8, FA TABLET GT SCH (20:20)
[2020-01-02] MEDS: IPRATROPIUM BROMIDE 0.5 MG/2.5 ML NEBU NEB SCH ×6 (03:03→23:16)
[2020-01-02] MEDS: ALBUTEROL SULFATE 2.5 MG/3 ML NEBU NEB SCH ×6 (03:03→23:16)
[2020-01-02] MEDS: CHOLECALCIFEROL 1,000 UNIT TABLET GT SCH (05:52)
[2020-01-02] MEDS: BUDESONIDE 0.5 MG/2 ML NEBU NEB SCH ×2 (08:08→19:30)
[2020-01-02] MEDS: HYDROGEN PEROXIDE 3% 118 ML BOTTLE TP SCH ×2 (08:20→21:32)
[2020-01-02] MEDS: CALCIUM CARBONATE 500 MG TABLET GT SCH ×2 (08:33→20:38)
[2020-01-02] MEDS: DOCUSATE SODIUM 100 MG/10 ML LIQUID UDC GT SCH (08:33)
[2020-01-02] MEDS: BACLOFEN 10 MG TABLET GT SCH ×2 (08:33→20:38)
[2020-01-02] MEDS: Z GUARD REMEDY PASTE 57 GM TUBE TOP SCH ×2 (08:33→20:38)
[2020-01-02] MEDS: NUTRISOURCE FIBER 4 GM PACKET GT SCH ×2 (08:33→20:38)
[2020-01-02] MEDS: NEOMY/BACITRA/POLYMYXIN B OINT UD PACKET TP SCH (08:34)
[2020-01-02] MEDS: JEVITY 1.2 1000 ML LIQUID GT PRN (13:18)
[2020-01-02] MEDS: ATORVASTATIN 10 MG TABLET GT SCH (20:38)
[2020-01-02 22:09] VITALS: BP 91/55
[2020-01-03] MEDS: IPRATROPIUM BROMIDE 0.5 MG/2.5 ML NEBU NEB SCH ×6 (03:06→22:40)
[2020-01-03] MEDS: ALBUTEROL SULFATE 2.5 MG/3 ML NEBU NEB SCH ×6 (03:06→22:40)
[2020-01-03] MEDS: CHOLECALCIFEROL 1,000 UNIT TABLET GT SCH (05:35)
[2020-01-03] MEDS: BUDESONIDE 0.5 MG/2 ML NEBU NEB SCH ×2 (07:13→19:48)
[2020-01-03 08:02] VITALS: BP 128/60
[2020-01-03] MEDS: NUTRISOURCE FIBER 4 GM PACKET GT SCH ×2 (08:20→20:37)
[2020-01-03] MEDS: CALCIUM CARBONATE 500 MG TABLET GT SCH ×2 (08:20→20:37)
[2020-01-03] MEDS: BACLOFEN 10 MG TABLET GT SCH ×2 (08:20→20:37)
[2020-01-03] MEDS: DOCUSATE SODIUM 100 MG/10 ML LIQUID UDC GT SCH (08:20)
[2020-01-03] MEDS: NEOMY/BACITRA/POLYMYXIN B OINT UD PACKET TP SCH (08:21)
[2020-01-03] MEDS: Z GUARD REMEDY PASTE 57 GM TUBE TOP SCH ×2 (08:21→20:37)
[2020-01-03] MEDS: HYDROGEN PEROXIDE 3% 118 ML BOTTLE TP SCH ×2 (08:49→19:45)
[2020-01-03] MEDS: JEVITY 1.2 1000 ML LIQUID GT PRN (15:26)
[2020-01-03] MEDS: ATORVASTATIN 10 MG TABLET GT SCH (20:37)
[2020-01-03] MEDS: MULTIVIT, IRON, MIN NO. 8, FA TABLET GT SCH (20:37)
[2020-01-03 22:37] VITALS: BP 100/72
[2020-01-04] MEDS: IPRATROPIUM BROMIDE 0.5 MG/2.5 ML NEBU NEB SCH ×6 (02:41→23:08)
[2020-01-04] MEDS: ALBUTEROL SULFATE 2.5 MG/3 ML NEBU NEB SCH ×6 (02:41→23:08)
[2020-01-04] MEDS: CHOLECALCIFEROL 1,000 UNIT TABLET GT SCH (05:34)
[2020-01-04] MEDS: BUDESONIDE 0.5 MG/2 ML NEBU NEB SCH ×2 (07:14→20:22)
[2020-01-04 08:07] VITALS: BP 90/45
[2020-01-04] MEDS: Z GUARD REMEDY PASTE 57 GM TUBE TOP SCH ×2 (09:13→21:42)
[2020-01-04] MEDS: CALCIUM CARBONATE 500 MG TABLET GT SCH ×2 (09:13→21:42)
[2020-01-04] MEDS: BACLOFEN 10 MG TABLET GT SCH ×2 (09:13→21:42)
[2020-01-04] MEDS: NUTRISOURCE FIBER 4 GM PACKET GT SCH ×2 (09:13→21:42)
[2020-01-04] MEDS: DOCUSATE SODIUM 100 MG/10 ML LIQUID UDC GT SCH (09:13)
[2020-01-04] MEDS: HYDROGEN PEROXIDE 3% 118 ML BOTTLE TP SCH ×2 (09:14→21:17)
[2020-01-04] MEDS: JEVITY 1.2 1000 ML LIQUID GT PRN (19:21)
[2020-01-04] MEDS: ATORVASTATIN 10 MG TABLET GT SCH (21:42)
[2020-01-04 22:48] VITALS: BP 111/66
[2020-01-05] MEDS: IPRATROPIUM BROMIDE 0.5 MG/2.5 ML NEBU NEB SCH ×6 (03:10→22:52)
[2020-01-05] MEDS: ALBUTEROL SULFATE 2.5 MG/3 ML NEBU NEB SCH ×6 (03:10→22:52)
[2020-01-05] MEDS: CHOLECALCIFEROL 1,000 UNIT TABLET GT SCH (06:50)
[2020-01-05] MEDS: BUDESONIDE 0.5 MG/2 ML NEBU NEB SCH ×2 (07:25→19:55)
[2020-01-05 07:32] VITALS: BP 107/64
[2020-01-05] MEDS: BACLOFEN 10 MG TABLET GT SCH ×2 (08:48→20:51)
[2020-01-05] MEDS: CALCIUM CARBONATE 500 MG TABLET GT SCH ×2 (08:48→20:51)
[2020-01-05] MEDS: Z GUARD REMEDY PASTE 57 GM TUBE TOP SCH ×2 (08:48→20:51)
[2020-01-05] MEDS: NUTRISOURCE FIBER 4 GM PACKET GT SCH ×2 (08:48→20:51)
[2020-01-05] MEDS: DOCUSATE SODIUM 100 MG/10 ML LIQUID UDC GT SCH (08:48)
[2020-01-05] MEDS: HYDROGEN PEROXIDE 3% 118 ML BOTTLE TP SCH ×2 (09:01→20:52)
--- NOTE | 2020-01-05 09:30 | NUR ---
Seen by Rocío Rosen with no new order.
--- NOTE | 2020-01-05 10:00 | NUR ---
Seen by Dorothy Rodriguez with no new order.
[2020-01-05 20:04] VITALS: BP 112/77
[2020-01-05] MEDS: MULTIVIT, IRON, MIN NO. 8, FA TABLET GT SCH (20:51)
[2020-01-05] MEDS: ATORVASTATIN 10 MG TABLET GT SCH (20:51)
[2020-01-05] MEDS: JEVITY 1.2 1000 ML LIQUID GT PRN (22:43)
[2020-01-06] MEDS: ALBUTEROL SULFATE 2.5 MG/3 ML NEBU NEB SCH ×6 (02:32→22:50)
[2020-01-06] MEDS: IPRATROPIUM BROMIDE 0.5 MG/2.5 ML NEBU NEB SCH ×6 (02:32→22:50)
[2020-01-06] MEDS: CHOLECALCIFEROL 1,000 UNIT TABLET GT SCH (05:48)
[2020-01-06 07:17] VITALS: BP 110/65
[2020-01-06] MEDS: HYDROGEN PEROXIDE 3% 118 ML BOTTLE TP SCH ×2 (07:20→20:01)
[2020-01-06] MEDS: BUDESONIDE 0.5 MG/2 ML NEBU NEB SCH ×2 (07:20→18:56)
[2020-01-06] MEDS: DOCUSATE SODIUM 100 MG/10 ML LIQUID UDC GT SCH (08:04)
[2020-01-06] MEDS: NUTRISOURCE FIBER 4 GM PACKET GT SCH ×2 (08:04→20:14)
[2020-01-06] MEDS: CALCIUM CARBONATE 500 MG TABLET GT SCH ×2 (08:04→20:14)
[2020-01-06] MEDS: BACLOFEN 10 MG TABLET GT SCH ×2 (08:04→20:14)
[2020-01-06] MEDS: Z GUARD REMEDY PASTE 57 GM TUBE TOP SCH ×2 (08:04→20:14)
[2020-01-06 20:05] VITALS: BP 121/73
[2020-01-06] MEDS: ATORVASTATIN 10 MG TABLET GT SCH (20:14)
[2020-01-07] MEDS: IPRATROPIUM BROMIDE 0.5 MG/2.5 ML NEBU NEB SCH ×6 (02:52→23:40)
[2020-01-07] MEDS: ALBUTEROL SULFATE 2.5 MG/3 ML NEBU NEB SCH ×6 (02:52→23:40)
[2020-01-07] MEDS: JEVITY 1.2 1000 ML LIQUID GT PRN (03:00)
[2020-01-07] MEDS: CHOLECALCIFEROL 1,000 UNIT TABLET GT SCH (05:37)
[2020-01-07 07:36] VITALS: BP 96/59
[2020-01-07] MEDS: BUDESONIDE 0.5 MG/2 ML NEBU NEB SCH ×2 (08:14→19:49)
[2020-01-07] MEDS: DOCUSATE SODIUM 100 MG/10 ML LIQUID UDC GT SCH (08:59)
[2020-01-07] MEDS: HYDROGEN PEROXIDE 3% 118 ML BOTTLE TP SCH ×2 (09:00→21:09)
[2020-01-07] MEDS: BACLOFEN 10 MG TABLET GT SCH ×2 (09:01→20:36)
[2020-01-07] MEDS: CALCIUM CARBONATE 500 MG TABLET GT SCH ×2 (09:02→20:37)
[2020-01-07] MEDS: NUTRISOURCE FIBER 4 GM PACKET GT SCH ×2 (09:02→20:36)
[2020-01-07] MEDS: Z GUARD REMEDY PASTE 57 GM TUBE TOP SCH ×2 (09:02→20:37)
[2020-01-07 19:59] VITALS: BP 110/51
[2020-01-07] MEDS: MIRALAX 17 GM POWD.PACK GT SCH (20:36)
[2020-01-07] MEDS: ATORVASTATIN 10 MG TABLET GT SCH (20:36)
[2020-01-07] MEDS: MULTIVIT, IRON, MIN NO. 8, FA TABLET GT SCH (20:37)
[2020-01-08] MEDS: IPRATROPIUM BROMIDE 0.5 MG/2.5 ML NEBU NEB SCH ×6 (03:55→23:59)
[2020-01-08] MEDS: ALBUTEROL SULFATE 2.5 MG/3 ML NEBU NEB SCH ×6 (03:55→23:59)
[2020-01-08] MEDS: CHOLECALCIFEROL 1,000 UNIT TABLET GT SCH (05:31)
[2020-01-08 07:29] VITALS: BP 131/72
[2020-01-08] MEDS: BUDESONIDE 0.5 MG/2 ML NEBU NEB SCH ×2 (08:29→19:16)
--- NOTE | 2020-01-08 09:08 | NUR ---
SEEN AND EXAMINED BY DR. REAVES AND WITH NNO.
[2020-01-08] MEDS: NUTRISOURCE FIBER 4 GM PACKET GT SCH ×2 (09:15→20:19)
[2020-01-08] MEDS: BACLOFEN 10 MG TABLET GT SCH ×2 (09:15→20:19)
[2020-01-08] MEDS: Z GUARD REMEDY PASTE 57 GM TUBE TOP SCH ×2 (09:15→20:19)
[2020-01-08] MEDS: CALCIUM CARBONATE 500 MG TABLET GT SCH ×2 (09:15→20:19)
[2020-01-08] MEDS: DOCUSATE SODIUM 100 MG/10 ML LIQUID UDC GT SCH (09:15)
[2020-01-08] MEDS: HYDROGEN PEROXIDE 3% 118 ML BOTTLE TP SCH ×2 (10:30→20:44)
[2020-01-08 20:00] VITALS: BP 114/74
[2020-01-08] MEDS: ATORVASTATIN 10 MG TABLET GT SCH (20:19)
[2020-01-09] MEDS: ALBUTEROL SULFATE 2.5 MG/3 ML NEBU NEB SCH ×6 (03:15→23:30)
[2020-01-09] MEDS: IPRATROPIUM BROMIDE 0.5 MG/2.5 ML NEBU NEB SCH ×6 (03:15→23:30)
[2020-01-09] MEDS: CHOLECALCIFEROL 1,000 UNIT TABLET GT SCH (05:31)
[2020-01-09] MEDS: BUDESONIDE 0.5 MG/2 ML NEBU NEB SCH ×2 (07:11→19:12)
[2020-01-09] MEDS: HYDROGEN PEROXIDE 3% 118 ML BOTTLE TP SCH ×2 (08:46→19:13)
[2020-01-09] MEDS: CALCIUM CARBONATE 500 MG TABLET GT SCH ×2 (08:58→21:00)
[2020-01-09] MEDS: BACLOFEN 10 MG TABLET GT SCH ×2 (08:58→20:59)
[2020-01-09] MEDS: Z GUARD REMEDY PASTE 57 GM TUBE TOP SCH ×2 (08:58→21:00)
[2020-01-09] MEDS: NUTRISOURCE FIBER 4 GM PACKET GT SCH ×2 (08:58→21:00)
[2020-01-09] MEDS: DOCUSATE SODIUM 100 MG/10 ML LIQUID UDC GT SCH (08:58)
[2020-01-09 20:00] VITALS: BP 102/59
[2020-01-09] MEDS: ATORVASTATIN 10 MG TABLET GT SCH (20:59)
[2020-01-09] MEDS: MULTIVIT, IRON, MIN NO. 8, FA TABLET GT SCH (21:00)
[2020-01-09] MEDS: MIRALAX 17 GM POWD.PACK GT SCH (21:00)
[2020-01-10] MEDS: ALBUTEROL SULFATE 2.5 MG/3 ML NEBU NEB SCH ×6 (03:30→23:14)
[2020-01-10] MEDS: IPRATROPIUM BROMIDE 0.5 MG/2.5 ML NEBU NEB SCH ×6 (03:30→23:14)
[2020-01-10] MEDS: CHOLECALCIFEROL 1,000 UNIT TABLET GT SCH (05:53)
[2020-01-10] MEDS: HYDROGEN PEROXIDE 3% 118 ML BOTTLE TP SCH ×2 (07:23→21:40)
[2020-01-10] MEDS: BUDESONIDE 0.5 MG/2 ML NEBU NEB SCH ×2 (07:23→19:30)
[2020-01-10 07:38] VITALS: BP 120/69
[2020-01-10] MEDS: NUTRISOURCE FIBER 4 GM PACKET GT SCH ×2 (08:19→20:16)
[2020-01-10] MEDS: CALCIUM CARBONATE 500 MG TABLET GT SCH ×2 (08:19→20:16)
[2020-01-10] MEDS: Z GUARD REMEDY PASTE 57 GM TUBE TOP SCH ×2 (08:19→20:16)
[2020-01-10] MEDS: BACLOFEN 10 MG TABLET GT SCH ×2 (08:19→20:16)
[2020-01-10] MEDS: DOCUSATE SODIUM 100 MG/10 ML LIQUID UDC GT SCH (08:19)
[2020-01-10] MEDS: ATORVASTATIN 10 MG TABLET GT SCH (20:16)
[2020-01-10 20:28] VITALS: BP 111/62
[2020-01-11] MEDS: ALBUTEROL SULFATE 2.5 MG/3 ML NEBU NEB SCH ×6 (03:06→23:30)
[2020-01-11] MEDS: IPRATROPIUM BROMIDE 0.5 MG/2.5 ML NEBU NEB SCH ×6 (03:06→23:30)
[2020-01-11] MEDS: CHOLECALCIFEROL 1,000 UNIT TABLET GT SCH (05:37)
[2020-01-11] MEDS: BUDESONIDE 0.5 MG/2 ML NEBU NEB SCH ×2 (07:14→20:15)
[2020-01-11 07:57] VITALS: BP 122/73
[2020-01-11] MEDS: HYDROGEN PEROXIDE 3% 118 ML BOTTLE TP SCH ×2 (09:00→21:39)
[2020-01-11] MEDS: NUTRISOURCE FIBER 4 GM PACKET GT SCH ×2 (09:11→20:29)
[2020-01-11] MEDS: CALCIUM CARBONATE 500 MG TABLET GT SCH ×2 (09:11→20:29)
[2020-01-11] MEDS: BACLOFEN 10 MG TABLET GT SCH ×2 (09:11→20:29)
[2020-01-11] MEDS: DOCUSATE SODIUM 100 MG/10 ML LIQUID UDC GT SCH (09:11)
[2020-01-11] MEDS: Z GUARD REMEDY PASTE 57 GM TUBE TOP SCH ×2 (09:11→20:29)
[2020-01-11] MEDS: JEVITY 1.2 1000 ML LIQUID GT PRN (17:50)
[2020-01-11] MEDS: ATORVASTATIN 10 MG TABLET GT SCH (20:29)
[2020-01-11] MEDS: MULTIVIT, IRON, MIN NO. 8, FA TABLET GT SCH (20:29)
[2020-01-11 20:57] VITALS: BP 81/47
[2020-01-11 22:14] VITALS: BP 115/61
[2020-01-12] MEDS: ALBUTEROL SULFATE 2.5 MG/3 ML NEBU NEB SCH ×6 (03:34→22:31)
[2020-01-12] MEDS: IPRATROPIUM BROMIDE 0.5 MG/2.5 ML NEBU NEB SCH ×6 (03:34→22:31)
[2020-01-12] MEDS: CHOLECALCIFEROL 1,000 UNIT TABLET GT SCH (05:44)
[2020-01-12 07:37] VITALS: BP 113/70
[2020-01-12] MEDS: BUDESONIDE 0.5 MG/2 ML NEBU NEB SCH ×2 (07:46→19:54)
[2020-01-12] MEDS: CALCIUM CARBONATE 500 MG TABLET GT SCH ×2 (09:00→20:45)
[2020-01-12] MEDS: DOCUSATE SODIUM 100 MG/10 ML LIQUID UDC GT SCH (09:00)
[2020-01-12] MEDS: NUTRISOURCE FIBER 4 GM PACKET GT SCH ×2 (09:00→20:46)
[2020-01-12] MEDS: Z GUARD REMEDY PASTE 57 GM TUBE TOP SCH ×2 (09:00→20:46)
[2020-01-12] MEDS: HYDROGEN PEROXIDE 3% 118 ML BOTTLE TP SCH ×2 (09:00→20:46)
[2020-01-12] MEDS: BACLOFEN 10 MG TABLET GT SCH ×2 (09:00→20:46)
--- NOTE | 2020-01-12 09:46 | NUR ---
SEEN AND EXAMINED BY HALINA GREY N.P AND [place].
[2020-01-12] MEDS: MIRALAX 17 GM POWD.PACK GT SCH (20:46)
[2020-01-12] MEDS: ATORVASTATIN 10 MG TABLET GT SCH (20:46)
[2020-01-12 20:49] VITALS: BP 115/62
[2020-01-12] MEDS: JEVITY 1.2 1000 ML LIQUID GT PRN (20:53)
[2020-01-13] MEDS: IPRATROPIUM BROMIDE 0.5 MG/2.5 ML NEBU NEB SCH ×5 (02:57→19:20)
[2020-01-13] MEDS: ALBUTEROL SULFATE 2.5 MG/3 ML NEBU NEB SCH ×5 (02:57→19:20)
[2020-01-13] MEDS: CHOLECALCIFEROL 1,000 UNIT TABLET GT SCH (05:24)
[2020-01-13 07:33] VITALS: BP 137/95
[2020-01-13] MEDS: BUDESONIDE 0.5 MG/2 ML NEBU NEB SCH ×2 (07:57→19:30)
[2020-01-13] MEDS: Z GUARD REMEDY PASTE 57 GM TUBE TOP SCH ×2 (08:22→20:32)
[2020-01-13] MEDS: DOCUSATE SODIUM 100 MG/10 ML LIQUID UDC GT SCH (08:22)
[2020-01-13] MEDS: CALCIUM CARBONATE 500 MG TABLET GT SCH ×2 (08:22→20:31)
[2020-01-13] MEDS: NUTRISOURCE FIBER 4 GM PACKET GT SCH ×2 (08:22→20:31)
[2020-01-13] MEDS: BACLOFEN 10 MG TABLET GT SCH ×2 (08:22→20:31)
[2020-01-13] MEDS: HYDROGEN PEROXIDE 3% 118 ML BOTTLE TP SCH ×2 (09:08→21:00)
[2020-01-13] MEDS: ATORVASTATIN 10 MG TABLET GT SCH (20:31)
[2020-01-13] MEDS: MULTIVIT, IRON, MIN NO. 8, FA TABLET GT SCH (20:32)
[2020-01-13 20:47] VITALS: BP 116/71
[2020-01-13] MEDS: JEVITY 1.2 1000 ML LIQUID GT PRN (23:00)
[2020-01-14] MEDS: ALBUTEROL SULFATE 2.5 MG/3 ML NEBU NEB SCH ×7 (00:26→22:50)
[2020-01-14] MEDS: IPRATROPIUM BROMIDE 0.5 MG/2.5 ML NEBU NEB SCH ×7 (00:26→22:50)
[2020-01-14] MEDS: CHOLECALCIFEROL 1,000 UNIT TABLET GT SCH (06:22)
[2020-01-14] MEDS: BUDESONIDE 0.5 MG/2 ML NEBU NEB SCH ×2 (07:14→20:08)
[2020-01-14 07:46] VITALS: BP 126/69
[2020-01-14] MEDS: CALCIUM CARBONATE 500 MG TABLET GT SCH ×2 (07:58→20:31)
[2020-01-14] MEDS: DOCUSATE SODIUM 100 MG/10 ML LIQUID UDC GT SCH (07:58)
[2020-01-14] MEDS: BACLOFEN 10 MG TABLET GT SCH ×2 (07:58→20:29)
[2020-01-14] MEDS: NUTRISOURCE FIBER 4 GM PACKET GT SCH ×2 (07:58→20:30)
[2020-01-14] MEDS: Z GUARD REMEDY PASTE 57 GM TUBE TOP SCH ×2 (07:59→20:31)
[2020-01-14] MEDS: HYDROGEN PEROXIDE 3% 118 ML BOTTLE TP SCH ×2 (09:00→20:08)
[2020-01-14 20:00] VITALS: BP 102/61
[2020-01-14] MEDS: ATORVASTATIN 10 MG TABLET GT SCH (20:29)
[2020-01-14] MEDS: MIRALAX 17 GM POWD.PACK GT SCH (20:30)
[2020-01-15] MEDS: JEVITY 1.2 1000 ML LIQUID GT PRN (02:00)
[2020-01-15] MEDS: IPRATROPIUM BROMIDE 0.5 MG/2.5 ML NEBU NEB SCH ×6 (02:50→23:00)
[2020-01-15] MEDS: ALBUTEROL SULFATE 2.5 MG/3 ML NEBU NEB SCH ×6 (02:50→23:00)
[2020-01-15] MEDS: CHOLECALCIFEROL 1,000 UNIT TABLET GT SCH (06:15)
[2020-01-15] MEDS: BUDESONIDE 0.5 MG/2 ML NEBU NEB SCH ×2 (06:58→19:08)
[2020-01-15] MEDS: HYDROGEN PEROXIDE 3% 118 ML BOTTLE TP SCH ×2 (06:58→21:24)
[2020-01-15 07:40] VITALS: BP 120/69
[2020-01-15] MEDS: BACLOFEN 10 MG TABLET GT SCH ×2 (08:44→21:00)
[2020-01-15] MEDS: DOCUSATE SODIUM 100 MG/10 ML LIQUID UDC GT SCH (08:44)
[2020-01-15] MEDS: NUTRISOURCE FIBER 4 GM PACKET GT SCH ×2 (08:44→21:00)
[2020-01-15] MEDS: CALCIUM CARBONATE 500 MG TABLET GT SCH ×2 (08:45→21:00)
[2020-01-15] MEDS: Z GUARD REMEDY PASTE 57 GM TUBE TOP SCH ×2 (08:45→21:00)
[2020-01-15] MEDS: BISACODYL 10 MG SUPP.RECT RC PRN (17:50)
[2020-01-15 20:25] VITALS: BP 104/57
[2020-01-15] MEDS: ATORVASTATIN 10 MG TABLET GT SCH (21:00)
[2020-01-15] MEDS: MULTIVIT, IRON, MIN NO. 8, FA TABLET GT SCH (21:00)
[2020-01-16] MEDS: ALBUTEROL SULFATE 2.5 MG/3 ML NEBU NEB SCH ×6 (03:27→22:48)
[2020-01-16] MEDS: IPRATROPIUM BROMIDE 0.5 MG/2.5 ML NEBU NEB SCH ×6 (03:27→22:48)
[2020-01-16] MEDS: JEVITY 1.2 1000 ML LIQUID GT PRN (05:00)
[2020-01-16] MEDS: CHOLECALCIFEROL 1,000 UNIT TABLET GT SCH (06:11)
[2020-01-16] MEDS: BUDESONIDE 0.5 MG/2 ML NEBU NEB SCH ×2 (07:20→18:55)
[2020-01-16 07:42] VITALS: BP 85/45
[2020-01-16] MEDS: HYDROGEN PEROXIDE 3% 118 ML BOTTLE TP SCH ×2 (09:00→20:17)
[2020-01-16] MEDS: Z GUARD REMEDY PASTE 57 GM TUBE TOP SCH ×2 (09:56→20:30)
[2020-01-16] MEDS: DOCUSATE SODIUM 100 MG/10 ML LIQUID UDC GT SCH (09:56)
[2020-01-16] MEDS: NUTRISOURCE FIBER 4 GM PACKET GT SCH ×2 (09:56→20:30)
[2020-01-16] MEDS: CALCIUM CARBONATE 500 MG TABLET GT SCH ×2 (09:56→20:30)
[2020-01-16] MEDS: BACLOFEN 10 MG TABLET GT SCH ×2 (09:56→20:30)
--- NOTE | 2020-01-16 17:41 | NUR ---
Seen by Dr. Weiner with no new order.
[2020-01-16 20:00] VITALS: BP 114/77
[2020-01-16] MEDS: ATORVASTATIN 10 MG TABLET GT SCH (20:30)
[2020-01-16] MEDS: MIRALAX 17 GM POWD.PACK GT SCH (20:30)
[2020-01-17] MEDS: IPRATROPIUM BROMIDE 0.5 MG/2.5 ML NEBU NEB SCH ×6 (03:00→22:50)
[2020-01-17] MEDS: ALBUTEROL SULFATE 2.5 MG/3 ML NEBU NEB SCH ×6 (03:00→22:50)
[2020-01-17] MEDS: CHOLECALCIFEROL 1,000 UNIT TABLET GT SCH (06:32)
[2020-01-17] MEDS: HYDROGEN PEROXIDE 3% 118 ML BOTTLE TP SCH ×2 (07:02→20:10)
[2020-01-17] MEDS: BUDESONIDE 0.5 MG/2 ML NEBU NEB SCH ×2 (07:02→20:10)
[2020-01-17] MEDS: CALCIUM CARBONATE 500 MG TABLET GT SCH ×2 (08:32→20:31)
[2020-01-17] MEDS: BACLOFEN 10 MG TABLET GT SCH ×2 (08:32→20:30)
[2020-01-17] MEDS: NUTRISOURCE FIBER 4 GM PACKET GT SCH ×2 (08:32→20:30)
[2020-01-17] MEDS: Z GUARD REMEDY PASTE 57 GM TUBE TOP SCH ×2 (08:32→20:31)
[2020-01-17] MEDS: DOCUSATE SODIUM 100 MG/10 ML LIQUID UDC GT SCH (08:32)
[2020-01-17] MEDS: JEVITY 1.2 1000 ML LIQUID GT PRN (12:54)
--- NOTE | 2020-01-17 16:13 | NUR ---
New orders noted for L buttocks excoriations,carried out.
[2020-01-17] MEDS: ATORVASTATIN 10 MG TABLET GT SCH (20:30)
[2020-01-17] MEDS: COD LIVER OIL/ZINC OXIDE OINT 113 GM TUBE TP SCH (20:31)
[2020-01-17] MEDS: MULTIVIT, IRON, MIN NO. 8, FA TABLET GT SCH (20:31)
[2020-01-17 22:16] VITALS: BP 98/54
[2020-01-18] MEDS: ALBUTEROL SULFATE 2.5 MG/3 ML NEBU NEB SCH ×6 (02:50→23:48)
[2020-01-18] MEDS: IPRATROPIUM BROMIDE 0.5 MG/2.5 ML NEBU NEB SCH ×6 (02:50→23:48)
[2020-01-18] MEDS: CHOLECALCIFEROL 1,000 UNIT TABLET GT SCH (05:55)
[2020-01-18] MEDS: BUDESONIDE 0.5 MG/2 ML NEBU NEB SCH ×2 (07:19→20:17)
[2020-01-18 08:02] VITALS: BP 90/52
[2020-01-18] MEDS: BACLOFEN 10 MG TABLET GT SCH ×2 (08:49→20:26)
[2020-01-18] MEDS: DOCUSATE SODIUM 100 MG/10 ML LIQUID UDC GT SCH (08:49)
[2020-01-18] MEDS: NUTRISOURCE FIBER 4 GM PACKET GT SCH ×2 (08:50→20:26)
[2020-01-18] MEDS: CALCIUM CARBONATE 500 MG TABLET GT SCH ×2 (08:50→20:27)
[2020-01-18] MEDS: COD LIVER OIL/ZINC OXIDE OINT 113 GM TUBE TP SCH ×2 (08:50→20:27)
[2020-01-18] MEDS: Z GUARD REMEDY PASTE 57 GM TUBE TOP SCH ×2 (08:50→20:27)
[2020-01-18] MEDS: HYDROGEN PEROXIDE 3% 118 ML BOTTLE TP SCH ×2 (10:30→21:00)
[2020-01-18] MEDS: JEVITY 1.2 1000 ML LIQUID GT PRN (18:31)
[2020-01-18] MEDS: ATORVASTATIN 10 MG TABLET GT SCH (20:26)
[2020-01-18 23:29] VITALS: BP 118/85
[2020-01-19] MEDS: COD LIVER OIL/ZINC OXIDE OINT 113 GM TUBE TOP SCH ×2 (00:45→08:42)
[2020-01-19] MEDS: IPRATROPIUM BROMIDE 0.5 MG/2.5 ML NEBU NEB SCH ×6 (03:37→23:23)
[2020-01-19] MEDS: ALBUTEROL SULFATE 2.5 MG/3 ML NEBU NEB SCH ×6 (03:37→23:23)
[2020-01-19] MEDS: CHOLECALCIFEROL 1,000 UNIT TABLET GT SCH (05:31)
[2020-01-19] MEDS: BUDESONIDE 0.5 MG/2 ML NEBU NEB SCH ×2 (07:15→20:17)
[2020-01-19 08:10] VITALS: BP 118/74
[2020-01-19] MEDS: HYDROGEN PEROXIDE 3% 118 ML BOTTLE TP SCH ×2 (08:28→21:00)
[2020-01-19] MEDS: DOCUSATE SODIUM 100 MG/10 ML LIQUID UDC GT SCH (08:41)
[2020-01-19] MEDS: BACLOFEN 10 MG TABLET GT SCH ×2 (08:41→20:40)
[2020-01-19] MEDS: NUTRISOURCE FIBER 4 GM PACKET GT SCH ×2 (08:41→20:40)
[2020-01-19] MEDS: COD LIVER OIL/ZINC OXIDE OINT 113 GM TUBE TP SCH ×2 (08:42→20:41)
[2020-01-19] MEDS: Z GUARD REMEDY PASTE 57 GM TUBE TOP SCH ×2 (08:42→20:41)
[2020-01-19] MEDS: CALCIUM CARBONATE 500 MG TABLET GT SCH ×2 (08:42→20:41)
[2020-01-19] MEDS: JEVITY 1.2 1000 ML LIQUID GT PRN (18:31)
[2020-01-19] MEDS: MIRALAX 17 GM POWD.PACK GT SCH (20:40)
[2020-01-19] MEDS: ATORVASTATIN 10 MG TABLET GT SCH (20:40)
[2020-01-19] MEDS: MULTIVIT, IRON, MIN NO. 8, FA TABLET GT SCH (20:41)
[2020-01-19 20:45] VITALS: BP 122/78
[2020-01-20] MEDS: IPRATROPIUM BROMIDE 0.5 MG/2.5 ML NEBU NEB SCH ×6 (03:00→23:00)
[2020-01-20] MEDS: ALBUTEROL SULFATE 2.5 MG/3 ML NEBU NEB SCH ×6 (03:00→23:00)
[2020-01-20] MEDS: CHOLECALCIFEROL 1,000 UNIT TABLET GT SCH (05:32)
[2020-01-20] MEDS: BUDESONIDE 0.5 MG/2 ML NEBU NEB SCH ×2 (07:18→18:54)
[2020-01-20 07:49] VITALS: BP 108/72
[2020-01-20] MEDS: HYDROGEN PEROXIDE 3% 118 ML BOTTLE TP SCH ×2 (08:53→20:54)
[2020-01-20] MEDS: CALCIUM CARBONATE 500 MG TABLET GT SCH ×2 (08:59→20:40)
[2020-01-20] MEDS: BACLOFEN 10 MG TABLET GT SCH ×2 (08:59→20:40)
[2020-01-20] MEDS: NUTRISOURCE FIBER 4 GM PACKET GT SCH ×2 (08:59→20:40)
[2020-01-20] MEDS: DOCUSATE SODIUM 100 MG/10 ML LIQUID UDC GT SCH (08:59)
[2020-01-20] MEDS: COD LIVER OIL/ZINC OXIDE OINT 113 GM TUBE TOP SCH (09:00)
[2020-01-20] MEDS: COD LIVER OIL/ZINC OXIDE OINT 113 GM TUBE TP SCH ×2 (09:00→20:40)
[2020-01-20] MEDS: Z GUARD REMEDY PASTE 57 GM TUBE TOP SCH ×2 (09:00→20:40)
[2020-01-20 20:00] VITALS: BP 131/83
[2020-01-20] MEDS: ATORVASTATIN 10 MG TABLET GT SCH (20:40)
[2020-01-20] MEDS: JEVITY 1.2 1000 ML LIQUID GT PRN (21:14)
[2020-01-21] MEDS: IPRATROPIUM BROMIDE 0.5 MG/2.5 ML NEBU NEB SCH ×6 (03:16→22:50)
[2020-01-21] MEDS: ALBUTEROL SULFATE 2.5 MG/3 ML NEBU NEB SCH ×6 (03:16→22:50)
[2020-01-21] MEDS: CHOLECALCIFEROL 1,000 UNIT TABLET GT SCH (05:53)
[2020-01-21] MEDS: BUDESONIDE 0.5 MG/2 ML NEBU NEB SCH ×2 (07:06→20:09)
[2020-01-21 08:01] VITALS: BP 110/66
[2020-01-21] MEDS: COD LIVER OIL/ZINC OXIDE OINT 113 GM TUBE TOP SCH (08:34)
[2020-01-21] MEDS: COD LIVER OIL/ZINC OXIDE OINT 113 GM TUBE TP SCH ×2 (08:34→20:28)
[2020-01-21] MEDS: CALCIUM CARBONATE 500 MG TABLET GT SCH ×2 (08:34→20:27)
[2020-01-21] MEDS: DOCUSATE SODIUM 100 MG/10 ML LIQUID UDC GT SCH (08:34)
[2020-01-21] MEDS: BACLOFEN 10 MG TABLET GT SCH ×2 (08:34→20:26)
[2020-01-21] MEDS: NUTRISOURCE FIBER 4 GM PACKET GT SCH ×2 (08:34→20:27)
[2020-01-21] MEDS: Z GUARD REMEDY PASTE 57 GM TUBE TOP SCH ×2 (08:34→20:27)
[2020-01-21] MEDS: HYDROGEN PEROXIDE 3% 118 ML BOTTLE TP SCH ×2 (09:19→20:09)
--- NOTE | 2020-01-21 17:12 | NUR ---
New orders to do the Baseline [facility] Covid 19 test requirement.
[2020-01-21 20:00] VITALS: BP 112/64
[2020-01-21] MEDS: ATORVASTATIN 10 MG TABLET GT SCH (20:26)
[2020-01-21] MEDS: MIRALAX 17 GM POWD.PACK GT SCH (20:26)
[2020-01-21] MEDS: MULTIVIT, IRON, MIN NO. 8, FA TABLET GT SCH (20:27)
[2020-01-22] MEDS: IPRATROPIUM BROMIDE 0.5 MG/2.5 ML NEBU NEB SCH ×5 (02:55→19:00)
[2020-01-22] MEDS: ALBUTEROL SULFATE 2.5 MG/3 ML NEBU NEB SCH ×5 (02:55→19:00)
[2020-01-22] MEDS: CHOLECALCIFEROL 1,000 UNIT TABLET GT SCH (06:00)
[2020-01-22] MEDS: BUDESONIDE 0.5 MG/2 ML NEBU NEB SCH ×2 (07:26→19:10)
[2020-01-22] MEDS: HYDROGEN PEROXIDE 3% 118 ML BOTTLE TP SCH ×2 (07:26→21:01)
[2020-01-22 07:44] VITALS: BP 122/68
[2020-01-22] MEDS: Z GUARD REMEDY PASTE 57 GM TUBE TOP SCH ×2 (08:52→21:04)
[2020-01-22] MEDS: DOCUSATE SODIUM 100 MG/10 ML LIQUID UDC GT SCH (08:52)
[2020-01-22] MEDS: COD LIVER OIL/ZINC OXIDE OINT 113 GM TUBE TOP SCH (08:52)
[2020-01-22] MEDS: BACLOFEN 10 MG TABLET GT SCH ×2 (08:52→20:47)
[2020-01-22] MEDS: NUTRISOURCE FIBER 4 GM PACKET GT SCH ×2 (08:52→20:47)
[2020-01-22] MEDS: CALCIUM CARBONATE 500 MG TABLET GT SCH ×2 (08:52→20:47)
[2020-01-22] MEDS: COD LIVER OIL/ZINC OXIDE OINT 113 GM TUBE TP SCH ×2 (08:52→20:47)
[2020-01-22 20:00] VITALS: BP 132/85
[2020-01-22] MEDS: ATORVASTATIN 10 MG TABLET GT SCH (20:47)
[2020-01-23] MEDS: ALBUTEROL SULFATE 2.5 MG/3 ML NEBU NEB SCH ×7 (00:17→23:21)
[2020-01-23] MEDS: IPRATROPIUM BROMIDE 0.5 MG/2.5 ML NEBU NEB SCH ×7 (00:17→23:21)
[2020-01-23] MEDS: JEVITY 1.2 1000 ML LIQUID GT PRN (04:01)
[2020-01-23] MEDS: CHOLECALCIFEROL 1,000 UNIT TABLET GT SCH (05:32)
[2020-01-23 07:43] VITALS: BP 111/77
[2020-01-23] MEDS: BUDESONIDE 0.5 MG/2 ML NEBU NEB SCH ×2 (07:47→20:17)
[2020-01-23] MEDS: HYDROGEN PEROXIDE 3% 118 ML BOTTLE TP SCH ×2 (07:48→21:49)
[2020-01-23] MEDS: COD LIVER OIL/ZINC OXIDE OINT 113 GM TUBE TOP SCH (08:44)
[2020-01-23] MEDS: CALCIUM CARBONATE 500 MG TABLET GT SCH ×2 (08:44→20:47)
[2020-01-23] MEDS: NUTRISOURCE FIBER 4 GM PACKET GT SCH ×2 (08:44→20:47)
[2020-01-23] MEDS: DOCUSATE SODIUM 100 MG/10 ML LIQUID UDC GT SCH (08:44)
[2020-01-23] MEDS: COD LIVER OIL/ZINC OXIDE OINT 113 GM TUBE TP SCH ×2 (08:44→20:47)
[2020-01-23] MEDS: Z GUARD REMEDY PASTE 57 GM TUBE TOP SCH ×2 (08:44→20:47)
[2020-01-23] MEDS: BACLOFEN 10 MG TABLET GT SCH ×2 (08:44→20:46)
--- NOTE | 2020-01-23 18:00 | NUR ---
PT.NEGATIVE FOR COVID 19.
[2020-01-23 20:00] VITALS: BP 94/63
[2020-01-23] MEDS: ATORVASTATIN 10 MG TABLET GT SCH (20:46)
[2020-01-23] MEDS: MULTIVIT, IRON, MIN NO. 8, FA TABLET GT SCH (20:47)
[2020-01-23] MEDS: MIRALAX 17 GM POWD.PACK GT SCH (20:47)
[2020-01-24] MEDS: ALBUTEROL SULFATE 2.5 MG/3 ML NEBU NEB SCH ×6 (02:46→23:05)
[2020-01-24] MEDS: IPRATROPIUM BROMIDE 0.5 MG/2.5 ML NEBU NEB SCH ×6 (02:46→23:05)
[2020-01-24] MEDS: JEVITY 1.2 1000 ML LIQUID GT PRN (03:39)
[2020-01-24] MEDS: CHOLECALCIFEROL 1,000 UNIT TABLET GT SCH (05:52)
[2020-01-24] MEDS: BUDESONIDE 0.5 MG/2 ML NEBU NEB SCH ×2 (07:12→18:55)
[2020-01-24 07:43] VITALS: BP 109/68
[2020-01-24] MEDS: DOCUSATE SODIUM 100 MG/10 ML LIQUID UDC GT SCH (08:56)
[2020-01-24] MEDS: NUTRISOURCE FIBER 4 GM PACKET GT SCH ×2 (08:57→20:30)
[2020-01-24] MEDS: BACLOFEN 10 MG TABLET GT SCH ×2 (08:57→20:30)
[2020-01-24] MEDS: Z GUARD REMEDY PASTE 57 GM TUBE TOP SCH ×2 (08:58→20:30)
[2020-01-24] MEDS: COD LIVER OIL/ZINC OXIDE OINT 113 GM TUBE TOP SCH (08:58)
[2020-01-24] MEDS: COD LIVER OIL/ZINC OXIDE OINT 113 GM TUBE TP SCH ×2 (08:58→20:30)
[2020-01-24] MEDS: CALCIUM CARBONATE 500 MG TABLET GT SCH ×2 (08:58→20:30)
[2020-01-24] MEDS: HYDROGEN PEROXIDE 3% 118 ML BOTTLE TP SCH ×2 (09:49→21:16)
[2020-01-24 20:00] VITALS: BP 99/59
[2020-01-24] MEDS: ATORVASTATIN 10 MG TABLET GT SCH (20:30)
[2020-01-25] MEDS: IPRATROPIUM BROMIDE 0.5 MG/2.5 ML NEBU NEB SCH ×6 (02:59→23:00)
[2020-01-25] MEDS: ALBUTEROL SULFATE 2.5 MG/3 ML NEBU NEB SCH ×6 (02:59→23:00)
[2020-01-25] MEDS: JEVITY 1.2 1000 ML LIQUID GT PRN (04:30)
[2020-01-25] MEDS: CHOLECALCIFEROL 1,000 UNIT TABLET GT SCH (05:32)
[2020-01-25] MEDS: HYDROGEN PEROXIDE 3% 118 ML BOTTLE TP SCH ×2 (07:53→21:29)
[2020-01-25] MEDS: BUDESONIDE 0.5 MG/2 ML NEBU NEB SCH ×2 (07:53→19:01)
[2020-01-25 07:57] VITALS: BP 131/65
[2020-01-25] MEDS: COD LIVER OIL/ZINC OXIDE OINT 113 GM TUBE TP SCH ×2 (08:33→21:04)
[2020-01-25] MEDS: CALCIUM CARBONATE 500 MG TABLET GT SCH ×2 (08:33→21:04)
[2020-01-25] MEDS: DOCUSATE SODIUM 100 MG/10 ML LIQUID UDC GT SCH (08:33)
[2020-01-25] MEDS: Z GUARD REMEDY PASTE 57 GM TUBE TOP SCH ×2 (08:33→21:04)
[2020-01-25] MEDS: BACLOFEN 10 MG TABLET GT SCH ×2 (08:33→21:04)
[2020-01-25] MEDS: NUTRISOURCE FIBER 4 GM PACKET GT SCH ×2 (08:33→21:04)
[2020-01-25] MEDS: COD LIVER OIL/ZINC OXIDE OINT 113 GM TUBE TOP SCH (08:33)
[2020-01-25 20:26] VITALS: BP 119/63
[2020-01-25] MEDS: MULTIVIT, IRON, MIN NO. 8, FA TABLET GT SCH (21:04)
[2020-01-25] MEDS: ATORVASTATIN 10 MG TABLET GT SCH (21:04)
[2020-01-26] MEDS: ALBUTEROL SULFATE 2.5 MG/3 ML NEBU NEB SCH ×6 (03:00→22:49)
[2020-01-26] MEDS: IPRATROPIUM BROMIDE 0.5 MG/2.5 ML NEBU NEB SCH ×6 (03:00→22:49)
[2020-01-26] MEDS: CHOLECALCIFEROL 1,000 UNIT TABLET GT SCH (06:32)
[2020-01-26] MEDS: BUDESONIDE 0.5 MG/2 ML NEBU NEB SCH ×2 (07:13→20:01)
[2020-01-26] MEDS: HYDROGEN PEROXIDE 3% 118 ML BOTTLE TP SCH ×2 (07:13→20:01)
[2020-01-26 07:33] VITALS: BP 116/74
[2020-01-26] MEDS: COD LIVER OIL/ZINC OXIDE OINT 113 GM TUBE TOP SCH (08:51)
[2020-01-26] MEDS: BACLOFEN 10 MG TABLET GT SCH ×2 (08:51→21:27)
[2020-01-26] MEDS: DOCUSATE SODIUM 100 MG/10 ML LIQUID UDC GT SCH (08:51)
[2020-01-26] MEDS: NUTRISOURCE FIBER 4 GM PACKET GT SCH ×2 (08:51→21:27)
[2020-01-26] MEDS: CALCIUM CARBONATE 500 MG TABLET GT SCH ×2 (08:51→21:28)
[2020-01-26] MEDS: Z GUARD REMEDY PASTE 57 GM TUBE TOP SCH ×2 (08:52→21:28)
[2020-01-26] MEDS: JEVITY 1.2 1000 ML LIQUID GT PRN (08:52)
[2020-01-26] MEDS: COD LIVER OIL/ZINC OXIDE OINT 113 GM TUBE TP SCH ×2 (08:52→21:28)
[2020-01-26 20:17] VITALS: BP 107/64
[2020-01-26] MEDS: ATORVASTATIN 10 MG TABLET GT SCH (21:27)
[2020-01-26] MEDS: MIRALAX 17 GM POWD.PACK GT SCH (21:27)
[2020-01-27] MEDS: IPRATROPIUM BROMIDE 0.5 MG/2.5 ML NEBU NEB SCH ×6 (02:46→23:53)
[2020-01-27] MEDS: ALBUTEROL SULFATE 2.5 MG/3 ML NEBU NEB SCH ×6 (02:46→23:53)
[2020-01-27] MEDS: CHOLECALCIFEROL 1,000 UNIT TABLET GT SCH (06:37)
[2020-01-27] MEDS: BUDESONIDE 0.5 MG/2 ML NEBU NEB SCH ×2 (07:02→19:10)
[2020-01-27 07:30] VITALS: BP 120/82
--- NOTE | 2020-01-27 07:30 | NUR ---
TEMP 94 F WARM MEASURES AND ARTIS HUGGER BLANKET STARTED.
--- NOTE | 2020-01-27 08:30 | NUR ---
TEMP 95.8 F
[2020-01-27] MEDS: BACLOFEN 10 MG TABLET GT SCH ×2 (08:32→20:14)
[2020-01-27] MEDS: DOCUSATE SODIUM 100 MG/10 ML LIQUID UDC GT SCH (08:32)
[2020-01-27] MEDS: NUTRISOURCE FIBER 4 GM PACKET GT SCH ×2 (08:33→20:14)
[2020-01-27] MEDS: COD LIVER OIL/ZINC OXIDE OINT 113 GM TUBE TOP SCH (08:33)
[2020-01-27] MEDS: Z GUARD REMEDY PASTE 57 GM TUBE TOP SCH ×2 (08:33→20:16)
[2020-01-27] MEDS: COD LIVER OIL/ZINC OXIDE OINT 113 GM TUBE TP SCH ×2 (08:33→20:16)
[2020-01-27] MEDS: CALCIUM CARBONATE 500 MG TABLET GT SCH ×2 (08:33→20:14)
[2020-01-27] MEDS: HYDROGEN PEROXIDE 3% 118 ML BOTTLE TP SCH ×2 (09:01→21:00)
--- NOTE | 2020-01-27 10:58 | NUR ---
AFTER ARTIS REZA BLANKET TENP. 97.2F
[2020-01-27] MEDS: JEVITY 1.2 1000 ML LIQUID GT PRN (14:32)
[2020-01-27 20:00] VITALS: BP 112/76
[2020-01-27] MEDS: ATORVASTATIN 10 MG TABLET GT SCH (20:14)
[2020-01-27] MEDS: MULTIVIT, IRON, MIN NO. 8, FA TABLET GT SCH (20:16)
[2020-01-28] MEDS: ALBUTEROL SULFATE 2.5 MG/3 ML NEBU NEB SCH ×6 (03:32→22:49)
[2020-01-28] MEDS: IPRATROPIUM BROMIDE 0.5 MG/2.5 ML NEBU NEB SCH ×6 (03:32→22:49)
[2020-01-28] MEDS: CHOLECALCIFEROL 1,000 UNIT TABLET GT SCH (06:23)
[2020-01-28] MEDS: BUDESONIDE 0.5 MG/2 ML NEBU NEB SCH ×2 (07:40→19:55)
[2020-01-28 07:43] VITALS: BP 115/73
[2020-01-28] MEDS: HYDROGEN PEROXIDE 3% 118 ML BOTTLE TP SCH ×2 (09:00→21:50)
[2020-01-28] MEDS: BACLOFEN 10 MG TABLET GT SCH ×2 (09:38→20:18)
[2020-01-28] MEDS: NUTRISOURCE FIBER 4 GM PACKET GT SCH ×2 (09:38→20:18)
[2020-01-28] MEDS: DOCUSATE SODIUM 100 MG/10 ML LIQUID UDC GT SCH (09:38)
[2020-01-28] MEDS: CALCIUM CARBONATE 500 MG TABLET GT SCH ×2 (09:39→20:20)
[2020-01-28] MEDS: COD LIVER OIL/ZINC OXIDE OINT 113 GM TUBE TP SCH ×2 (09:40→20:20)
[2020-01-28] MEDS: Z GUARD REMEDY PASTE 57 GM TUBE TOP SCH ×2 (09:40→20:20)
[2020-01-28] MEDS: COD LIVER OIL/ZINC OXIDE OINT 113 GM TUBE TOP SCH (09:40)
[2020-01-28 20:00] VITALS: BP 129/72
[2020-01-28] MEDS: MIRALAX 17 GM POWD.PACK GT SCH (20:18)
[2020-01-28] MEDS: ATORVASTATIN 10 MG TABLET GT SCH (20:18)
[2020-01-29] MEDS: IPRATROPIUM BROMIDE 0.5 MG/2.5 ML NEBU NEB SCH ×6 (02:46→22:46)
[2020-01-29] MEDS: ALBUTEROL SULFATE 2.5 MG/3 ML NEBU NEB SCH ×6 (02:46→22:46)
[2020-01-29] MEDS: CHOLECALCIFEROL 1,000 UNIT TABLET GT SCH (06:08)
[2020-01-29] MEDS: BUDESONIDE 0.5 MG/2 ML NEBU NEB SCH ×2 (07:06→19:53)
[2020-01-29 07:37] VITALS: BP 111/75
[2020-01-29] MEDS: NUTRISOURCE FIBER 4 GM PACKET GT SCH ×2 (08:02→21:26)
[2020-01-29] MEDS: DOCUSATE SODIUM 100 MG/10 ML LIQUID UDC GT SCH (08:02)
[2020-01-29] MEDS: BACLOFEN 10 MG TABLET GT SCH ×2 (08:02→21:26)
[2020-01-29] MEDS: COD LIVER OIL/ZINC OXIDE OINT 113 GM TUBE TOP SCH (08:03)
[2020-01-29] MEDS: COD LIVER OIL/ZINC OXIDE OINT 113 GM TUBE TP SCH ×2 (08:03→21:26)
[2020-01-29] MEDS: CALCIUM CARBONATE 500 MG TABLET GT SCH ×2 (08:03→21:26)
[2020-01-29] MEDS: Z GUARD REMEDY PASTE 57 GM TUBE TOP SCH ×2 (08:03→21:26)
[2020-01-29] MEDS: HYDROGEN PEROXIDE 3% 118 ML BOTTLE TP SCH ×2 (09:00→21:22)
[2020-01-29] MEDS: JEVITY 1.2 1000 ML LIQUID GT PRN (16:48)
[2020-01-29 20:00] VITALS: BP 98/60
[2020-01-29] MEDS: ATORVASTATIN 10 MG TABLET GT SCH (21:26)
[2020-01-29] MEDS: MULTIVIT, IRON, MIN NO. 8, FA TABLET GT SCH (21:26)
[2020-01-30] MEDS: IPRATROPIUM BROMIDE 0.5 MG/2.5 ML NEBU NEB SCH ×6 (03:03→22:59)
[2020-01-30] MEDS: ALBUTEROL SULFATE 2.5 MG/3 ML NEBU NEB SCH ×6 (03:03→22:59)
[2020-01-30] MEDS: CHOLECALCIFEROL 1,000 UNIT TABLET GT SCH (06:21)
[2020-01-30] MEDS: BUDESONIDE 0.5 MG/2 ML NEBU NEB SCH ×2 (07:06→18:50)
[2020-01-30 07:34] VITALS: BP 106/71
[2020-01-30] MEDS: COD LIVER OIL/ZINC OXIDE OINT 113 GM TUBE TOP SCH (08:48)
[2020-01-30] MEDS: DOCUSATE SODIUM 100 MG/10 ML LIQUID UDC GT SCH (08:48)
[2020-01-30] MEDS: NUTRISOURCE FIBER 4 GM PACKET GT SCH ×2 (08:48→21:07)
[2020-01-30] MEDS: Z GUARD REMEDY PASTE 57 GM TUBE TOP SCH ×2 (08:48→21:07)
[2020-01-30] MEDS: COD LIVER OIL/ZINC OXIDE OINT 113 GM TUBE TP SCH ×2 (08:48→21:07)
[2020-01-30] MEDS: BACLOFEN 10 MG TABLET GT SCH ×2 (08:48→21:07)
[2020-01-30] MEDS: CALCIUM CARBONATE 500 MG TABLET GT SCH ×2 (08:48→21:07)
[2020-01-30] MEDS: HYDROGEN PEROXIDE 3% 118 ML BOTTLE TP SCH ×2 (09:00→21:09)
[2020-01-30 20:32] VITALS: BP 114/75
[2020-01-30] MEDS: MIRALAX 17 GM POWD.PACK GT SCH (21:07)
[2020-01-30] MEDS: ATORVASTATIN 10 MG TABLET GT SCH (21:07)
[2020-01-31] MEDS: JEVITY 1.2 1000 ML LIQUID GT PRN (02:22)
[2020-01-31] MEDS: IPRATROPIUM BROMIDE 0.5 MG/2.5 ML NEBU NEB SCH ×5 (02:46→19:25)
[2020-01-31] MEDS: ALBUTEROL SULFATE 2.5 MG/3 ML NEBU NEB SCH ×5 (02:46→19:25)
[2020-01-31] MEDS: CHOLECALCIFEROL 1,000 UNIT TABLET GT SCH (05:31)
[2020-01-31 07:40] VITALS: BP 120/67
[2020-01-31] MEDS: BACLOFEN 10 MG TABLET GT SCH ×2 (08:16→20:39)
[2020-01-31] MEDS: DOCUSATE SODIUM 100 MG/10 ML LIQUID UDC GT SCH (08:16)
[2020-01-31] MEDS: Z GUARD REMEDY PASTE 57 GM TUBE TOP SCH ×2 (08:17→20:39)
[2020-01-31] MEDS: COD LIVER OIL/ZINC OXIDE OINT 113 GM TUBE TP SCH ×2 (08:17→20:39)
[2020-01-31] MEDS: COD LIVER OIL/ZINC OXIDE OINT 113 GM TUBE TOP SCH (08:17)
[2020-01-31] MEDS: NUTRISOURCE FIBER 4 GM PACKET GT SCH ×2 (08:17→20:39)
[2020-01-31] MEDS: CALCIUM CARBONATE 500 MG TABLET GT SCH ×2 (08:17→20:39)
[2020-01-31] MEDS: BUDESONIDE 0.5 MG/2 ML NEBU NEB SCH ×2 (08:24→19:35)
[2020-01-31] MEDS: HYDROGEN PEROXIDE 3% 118 ML BOTTLE TP SCH ×2 (10:30→21:00)
[2020-01-31] MEDS: MULTIVIT, IRON, MIN NO. 8, FA TABLET GT SCH (20:39)
[2020-01-31] MEDS: ATORVASTATIN 10 MG TABLET GT SCH (20:39)
[2020-01-31 20:45] VITALS: BP 139/88
[2020-02-01] MEDS: ALBUTEROL SULFATE 2.5 MG/3 ML NEBU NEB SCH ×7 (00:19→23:57)
[2020-02-01] MEDS: IPRATROPIUM BROMIDE 0.5 MG/2.5 ML NEBU NEB SCH ×7 (00:19→23:57)
[2020-02-01] MEDS: JEVITY 1.2 1000 ML LIQUID GT PRN (01:30)
[2020-02-01] MEDS: CHOLECALCIFEROL 1,000 UNIT TABLET GT SCH (05:35)
[2020-02-01] MEDS: BUDESONIDE 0.5 MG/2 ML NEBU NEB SCH ×2 (07:26→19:49)
[2020-02-01 07:45] VITALS: BP 116/75
[2020-02-01] MEDS: Z GUARD REMEDY PASTE 57 GM TUBE TOP SCH ×2 (08:56→20:22)
[2020-02-01] MEDS: NUTRISOURCE FIBER 4 GM PACKET GT SCH ×2 (08:56→20:22)
[2020-02-01] MEDS: BACLOFEN 10 MG TABLET GT SCH ×2 (08:56→20:22)
[2020-02-01] MEDS: DOCUSATE SODIUM 100 MG/10 ML LIQUID UDC GT SCH (08:56)
[2020-02-01] MEDS: CALCIUM CARBONATE 500 MG TABLET GT SCH ×2 (08:56→20:22)
[2020-02-01] MEDS: COD LIVER OIL/ZINC OXIDE OINT 113 GM TUBE TP SCH ×2 (08:56→20:23)
[2020-02-01] MEDS: COD LIVER OIL/ZINC OXIDE OINT 113 GM TUBE TOP SCH (08:56)
[2020-02-01] MEDS: HYDROGEN PEROXIDE 3% 118 ML BOTTLE TP SCH ×2 (09:53→21:20)
[2020-02-01] MEDS: ATORVASTATIN 10 MG TABLET GT SCH (20:22)
[2020-02-01 20:33] VITALS: BP 115/78
[2020-02-02] MEDS: JEVITY 1.2 1000 ML LIQUID GT PRN (01:48)
[2020-02-02] MEDS: IPRATROPIUM BROMIDE 0.5 MG/2.5 ML NEBU NEB SCH ×6 (03:08→22:47)
[2020-02-02] MEDS: ALBUTEROL SULFATE 2.5 MG/3 ML NEBU NEB SCH ×6 (03:08→22:47)
[2020-02-02] MEDS: CHOLECALCIFEROL 1,000 UNIT TABLET GT SCH (05:32)
--- NOTE | 2020-02-02 06:32 | NUR ---
FOUND PT HAS RASH ON (R) UPPER & (R) LOWER LEG WITH NEW TX.
[2020-02-02] MEDS: HYDROGEN PEROXIDE 3% 118 ML BOTTLE TP SCH ×2 (07:31→21:21)
[2020-02-02] MEDS: BUDESONIDE 0.5 MG/2 ML NEBU NEB SCH ×2 (07:31→19:47)
[2020-02-02] MEDS: Z GUARD REMEDY PASTE 57 GM TUBE TOP SCH ×2 (08:44→20:51)
[2020-02-02] MEDS: BACLOFEN 10 MG TABLET GT SCH ×2 (08:44→20:51)
[2020-02-02] MEDS: DOCUSATE SODIUM 100 MG/10 ML LIQUID UDC GT SCH (08:44)
[2020-02-02] MEDS: CALCIUM CARBONATE 500 MG TABLET GT SCH ×2 (08:44→20:51)
[2020-02-02] MEDS: NUTRISOURCE FIBER 4 GM PACKET GT SCH ×2 (08:44→20:51)
[2020-02-02] MEDS: COD LIVER OIL/ZINC OXIDE OINT 113 GM TUBE TP SCH ×2 (08:45→20:51)
--- NOTE | 2020-02-02 15:51 | NUR ---
Wound consult ordered fo left buttock excoriation evaluation.
--- NOTE | 2020-02-02 16:15 | NUR ---
Air mattress ordered for wound management (left buttock)(approved by community center director)
[2020-02-02 20:03] VITALS: BP 103/67
[2020-02-02] MEDS: ATORVASTATIN 10 MG TABLET GT SCH (20:51)
[2020-02-02] MEDS: MULTIVIT, IRON, MIN NO. 8, FA TABLET GT SCH (20:51)
[2020-02-02] MEDS: MIRALAX 17 GM POWD.PACK GT SCH (20:51)
[2020-02-02] MEDS: TRIAMCINOLONE ACET 0.1% CREAM 15 GM TUBE TP SCH (20:53)
[2020-02-03] MEDS: IPRATROPIUM BROMIDE 0.5 MG/2.5 ML NEBU NEB SCH ×6 (02:47→22:46)
[2020-02-03] MEDS: ALBUTEROL SULFATE 2.5 MG/3 ML NEBU NEB SCH ×6 (02:47→22:46)
[2020-02-03] MEDS: CHOLECALCIFEROL 1,000 UNIT TABLET GT SCH (06:27)
[2020-02-03] MEDS: JEVITY 1.2 1000 ML LIQUID GT PRN (06:27)
[2020-02-03 07:30] VITALS: BP 145/94
[2020-02-03] MEDS: BUDESONIDE 0.5 MG/2 ML NEBU NEB SCH ×2 (07:35→19:51)
[2020-02-03] MEDS: TRIAMCINOLONE ACET 0.1% CREAM 15 GM TUBE TP SCH ×2 (08:06→20:39)
[2020-02-03] MEDS: COD LIVER OIL/ZINC OXIDE OINT 113 GM TUBE TP SCH (08:06)
[2020-02-03] MEDS: CALCIUM CARBONATE 500 MG TABLET GT SCH ×2 (08:06→20:33)
[2020-02-03] MEDS: NUTRISOURCE FIBER 4 GM PACKET GT SCH ×2 (08:06→20:33)
[2020-02-03] MEDS: Z GUARD REMEDY PASTE 57 GM TUBE TOP SCH ×3 (08:06→20:33)
[2020-02-03] MEDS: BACLOFEN 10 MG TABLET GT SCH ×2 (08:06→20:32)
[2020-02-03] MEDS: DOCUSATE SODIUM 100 MG/10 ML LIQUID UDC GT SCH (08:06)
[2020-02-03] MEDS: HYDROGEN PEROXIDE 3% 118 ML BOTTLE TP SCH ×2 (09:00→21:31)
--- NOTE | 2020-02-03 11:19 | NUR ---
WOUND CARE CONSULT: PT SEEN FOR LEFT BUTTOCK RASH WITH OPEN SKIN. PT IS INCONTINENT. RECOMMENDATIONS MADE FOR SKIN CARE AND PROTECTION USING LOTRIMIN CREAM, FOLLOWED BY Z GUARD AND COVER WITH MEPILEX EVERY SHIFT. DISCUSSED WITH NURSING STAFF. LOW AIRLOSS MATTRESS NOTED TO BE ON ORDER. WILL SEE PRN. IN AGREEMENT WITH PLAN OF CARE.
--- NOTE | 2020-02-03 15:04 | NUR ---
INTERDISCIPLINARY PLAN OF CARE CONFERENCE was held today. Patient's family was not available to participate in the meeting. Dr. Underwood and the Interdisciplinary Team reviewed the current plan of care in detail. RN reported on patient's medical condition and stated that patient has an order for wound consultation. No major changes in condition were reported. See RN IDT conference notes. See all disciplines IDT notes and physician's progress notes for additional details.
--- NOTE | 2020-02-03 15:20 | NUR ---
Pharmacy Update from Today's 02/03/20 IDT Meeting: VS: Temp 95 BP 103/67 HR 72 LABS: (from 10/05/19, no new labs) Wbc 5.6 H/H 15.4/45.3 Plt 159 Na 139 K 4.2 Cl 102 CO2 31 BUN/SCr 15/0.5 BS 101 Ca 9.6 MEDICATION USE REVIEWED: > Pt not on any anti-psych or anti-seizure medications > PRN MED USAGE: (December) Tylenol for pain used x 0 Tylenol for temp used x 0 Bisacodyl PRN x 4 NEW ORDERS NOTED: > Covid test 01/20 negative > Triamcinolone 0.1% cream to leg rashes left upper and left lower leg x 14 days (02/01-02/15) Pt was reviewed and discussed in depth with no medication concerns or issues reported at this time and no further recs from rx at this time. Pt remains stable on current regimen, will continue to follow
--- NOTE | 2020-02-03 15:39 | NUR ---
Pt seen and examined by the wound adult caregiver with new orders noted
[2020-02-03 20:00] VITALS: BP 120/78
[2020-02-03] MEDS: ATORVASTATIN 10 MG TABLET GT SCH (20:32)
[2020-02-03] MEDS: CLOTRIMAZOLE 1% CREAM 30 GM TUBE TP SCH (20:34)
[2020-02-04] MEDS: ALBUTEROL SULFATE 2.5 MG/3 ML NEBU NEB SCH ×6 (02:46→23:31)
[2020-02-04] MEDS: IPRATROPIUM BROMIDE 0.5 MG/2.5 ML NEBU NEB SCH ×6 (02:46→23:31)
[2020-02-04] MEDS: CHOLECALCIFEROL 1,000 UNIT TABLET GT SCH (05:51)
[2020-02-04] MEDS: JEVITY 1.2 1000 ML LIQUID GT PRN (05:52)
[2020-02-04 07:42] VITALS: BP 108/77
[2020-02-04] MEDS: BUDESONIDE 0.5 MG/2 ML NEBU NEB SCH ×2 (08:29→20:05)
[2020-02-04] MEDS: DOCUSATE SODIUM 100 MG/10 ML LIQUID UDC GT SCH (09:31)
[2020-02-04] MEDS: BACLOFEN 10 MG TABLET GT SCH ×2 (09:31→20:41)
[2020-02-04] MEDS: Z GUARD REMEDY PASTE 57 GM TUBE TOP SCH ×4 (09:32→20:47)
[2020-02-04] MEDS: NUTRISOURCE FIBER 4 GM PACKET GT SCH ×2 (09:32→20:44)
[2020-02-04] MEDS: CLOTRIMAZOLE 1% CREAM 30 GM TUBE TP SCH ×2 (09:32→20:48)
[2020-02-04] MEDS: TRIAMCINOLONE ACET 0.1% CREAM 15 GM TUBE TP SCH ×2 (09:32→20:48)
[2020-02-04] MEDS: CALCIUM CARBONATE 500 MG TABLET GT SCH ×2 (09:32→20:45)
[2020-02-04] MEDS: HYDROGEN PEROXIDE 3% 118 ML BOTTLE TP SCH ×2 (10:30→21:26)
[2020-02-04 20:07] VITALS: BP 135/86
[2020-02-04] MEDS: ATORVASTATIN 10 MG TABLET GT SCH (20:41)
[2020-02-04] MEDS: MIRALAX 17 GM POWD.PACK GT SCH (20:41)
[2020-02-04] MEDS: MULTIVIT, IRON, MIN NO. 8, FA TABLET GT SCH (20:47)
[2020-02-05] MEDS: IPRATROPIUM BROMIDE 0.5 MG/2.5 ML NEBU NEB SCH ×5 (03:38→19:45)
[2020-02-05] MEDS: ALBUTEROL SULFATE 2.5 MG/3 ML NEBU NEB SCH ×5 (03:38→19:45)
[2020-02-05] MEDS: JEVITY 1.2 1000 ML LIQUID GT PRN (06:00)
[2020-02-05] MEDS: CHOLECALCIFEROL 1,000 UNIT TABLET GT SCH (06:09)
[2020-02-05 07:35] VITALS: BP 112/77
[2020-02-05] MEDS: BUDESONIDE 0.5 MG/2 ML NEBU NEB SCH ×2 (08:20→19:55)
[2020-02-05] MEDS: HYDROGEN PEROXIDE 3% 118 ML BOTTLE TP SCH ×2 (08:21→21:06)
[2020-02-05] MEDS: BACLOFEN 10 MG TABLET GT SCH ×2 (09:02→20:48)
[2020-02-05] MEDS: Z GUARD REMEDY PASTE 57 GM TUBE TOP SCH ×4 (09:02→20:49)
[2020-02-05] MEDS: CLOTRIMAZOLE 1% CREAM 30 GM TUBE TP SCH ×2 (09:02→20:49)
[2020-02-05] MEDS: DOCUSATE SODIUM 100 MG/10 ML LIQUID UDC GT SCH (09:02)
[2020-02-05] MEDS: NUTRISOURCE FIBER 4 GM PACKET GT SCH ×2 (09:02→20:48)
[2020-02-05] MEDS: CALCIUM CARBONATE 500 MG TABLET GT SCH ×2 (09:02→20:48)
[2020-02-05] MEDS: TRIAMCINOLONE ACET 0.1% CREAM 15 GM TUBE TP SCH ×2 (09:03→20:49)
[2020-02-05 20:00] VITALS: BP 98/54
[2020-02-05] MEDS: ATORVASTATIN 10 MG TABLET GT SCH (20:48)
[2020-02-06] MEDS: ALBUTEROL SULFATE 2.5 MG/3 ML NEBU NEB SCH ×6 (00:12→19:11)
[2020-02-06] MEDS: IPRATROPIUM BROMIDE 0.5 MG/2.5 ML NEBU NEB SCH ×6 (00:12→19:11)
[2020-02-06] MEDS: CHOLECALCIFEROL 1,000 UNIT TABLET GT SCH (05:55)
[2020-02-06] MEDS: JEVITY 1.2 1000 ML LIQUID GT PRN (06:31)
[2020-02-06] MEDS: BUDESONIDE 0.5 MG/2 ML NEBU NEB SCH ×2 (07:04→19:11)
[2020-02-06 07:45] VITALS: BP 101/54
[2020-02-06] MEDS: Z GUARD REMEDY PASTE 57 GM TUBE TOP SCH ×4 (09:05→20:58)
[2020-02-06] MEDS: BACLOFEN 10 MG TABLET GT SCH ×2 (09:05→20:57)
[2020-02-06] MEDS: NUTRISOURCE FIBER 4 GM PACKET GT SCH ×2 (09:05→20:57)
[2020-02-06] MEDS: DOCUSATE SODIUM 100 MG/10 ML LIQUID UDC GT SCH (09:05)
[2020-02-06] MEDS: CALCIUM CARBONATE 500 MG TABLET GT SCH ×2 (09:05→20:57)
[2020-02-06] MEDS: CLOTRIMAZOLE 1% CREAM 30 GM TUBE TP SCH ×2 (09:05→20:58)
[2020-02-06] MEDS: TRIAMCINOLONE ACET 0.1% CREAM 15 GM TUBE TP SCH ×2 (09:06→20:59)
[2020-02-06] MEDS: HYDROGEN PEROXIDE 3% 118 ML BOTTLE TP SCH ×2 (09:08→22:00)
[2020-02-06] MEDS: MIRALAX 17 GM POWD.PACK GT SCH (20:57)
[2020-02-06] MEDS: ATORVASTATIN 10 MG TABLET GT SCH (20:57)
[2020-02-06] MEDS: MULTIVIT, IRON, MIN NO. 8, FA TABLET GT SCH (20:57)
[2020-02-06 23:24] VITALS: BP 111/78
[2020-02-07] MEDS: ALBUTEROL SULFATE 2.5 MG/3 ML NEBU NEB SCH ×7 (04:15→22:56)
[2020-02-07] MEDS: IPRATROPIUM BROMIDE 0.5 MG/2.5 ML NEBU NEB SCH ×7 (04:15→22:56)
[2020-02-07] MEDS: CHOLECALCIFEROL 1,000 UNIT TABLET GT SCH (06:59)
[2020-02-07] MEDS: BUDESONIDE 0.5 MG/2 ML NEBU NEB SCH ×2 (07:52→18:44)
[2020-02-07] MEDS: HYDROGEN PEROXIDE 3% 118 ML BOTTLE TP SCH ×2 (08:49→21:21)
[2020-02-07] MEDS: DOCUSATE SODIUM 100 MG/10 ML LIQUID UDC GT SCH (09:42)
[2020-02-07] MEDS: BACLOFEN 10 MG TABLET GT SCH ×2 (09:42→20:16)
[2020-02-07] MEDS: NUTRISOURCE FIBER 4 GM PACKET GT SCH ×2 (09:43→20:16)
[2020-02-07] MEDS: CALCIUM CARBONATE 500 MG TABLET GT SCH ×2 (09:43→20:16)
[2020-02-07] MEDS: Z GUARD REMEDY PASTE 57 GM TUBE TOP SCH ×4 (09:44→20:16)
[2020-02-07] MEDS: CLOTRIMAZOLE 1% CREAM 30 GM TUBE TP SCH ×2 (09:44→20:16)
[2020-02-07] MEDS: TRIAMCINOLONE ACET 0.1% CREAM 15 GM TUBE TP SCH ×2 (09:45→20:16)
[2020-02-07] MEDS: ATORVASTATIN 10 MG TABLET GT SCH (20:16)
[2020-02-07 23:04] VITALS: BP 124/86
[2020-02-08] MEDS: IPRATROPIUM BROMIDE 0.5 MG/2.5 ML NEBU NEB SCH ×6 (03:07→23:30)
[2020-02-08] MEDS: ALBUTEROL SULFATE 2.5 MG/3 ML NEBU NEB SCH ×6 (03:07→23:30)
[2020-02-08] MEDS: CHOLECALCIFEROL 1,000 UNIT TABLET GT SCH (05:35)
[2020-02-08] MEDS: BUDESONIDE 0.5 MG/2 ML NEBU NEB SCH ×2 (07:21→20:32)
[2020-02-08 07:47] VITALS: BP 121/75
[2020-02-08] MEDS: HYDROGEN PEROXIDE 3% 118 ML BOTTLE TP SCH ×2 (08:38→21:39)
[2020-02-08] MEDS: TRIAMCINOLONE ACET 0.1% CREAM 15 GM TUBE TP SCH ×2 (09:10→20:21)
[2020-02-08] MEDS: CALCIUM CARBONATE 500 MG TABLET GT SCH ×2 (09:10→20:20)
[2020-02-08] MEDS: Z GUARD REMEDY PASTE 57 GM TUBE TOP SCH ×4 (09:10→20:20)
[2020-02-08] MEDS: NUTRISOURCE FIBER 4 GM PACKET GT SCH ×2 (09:10→20:19)
[2020-02-08] MEDS: CLOTRIMAZOLE 1% CREAM 30 GM TUBE TP SCH ×2 (09:10→20:21)
[2020-02-08] MEDS: DOCUSATE SODIUM 100 MG/10 ML LIQUID UDC GT SCH (09:10)
[2020-02-08] MEDS: BACLOFEN 10 MG TABLET GT SCH ×2 (09:10→20:19)
[2020-02-08] MEDS: ATORVASTATIN 10 MG TABLET GT SCH (20:19)
[2020-02-08] MEDS: MULTIVIT, IRON, MIN NO. 8, FA TABLET GT SCH (20:20)
[2020-02-08 20:30] VITALS: BP 118/56
[2020-02-09] MEDS: IPRATROPIUM BROMIDE 0.5 MG/2.5 ML NEBU NEB SCH ×6 (03:25→23:22)
[2020-02-09] MEDS: ALBUTEROL SULFATE 2.5 MG/3 ML NEBU NEB SCH ×6 (03:25→23:22)
[2020-02-09] MEDS: CHOLECALCIFEROL 1,000 UNIT TABLET GT SCH (05:41)
--- NOTE | 2020-02-09 06:27 | NUR ---
Seen by Dorothy Rhodes NP with no new orders.
[2020-02-09] MEDS: BUDESONIDE 0.5 MG/2 ML NEBU NEB SCH ×2 (07:02→20:29)
[2020-02-09 07:38] VITALS: BP 126/74
[2020-02-09] MEDS: BACLOFEN 10 MG TABLET GT SCH ×2 (08:41→20:19)
[2020-02-09] MEDS: DOCUSATE SODIUM 100 MG/10 ML LIQUID UDC GT SCH (08:41)
[2020-02-09] MEDS: NUTRISOURCE FIBER 4 GM PACKET GT SCH ×2 (08:41→20:20)
[2020-02-09] MEDS: Z GUARD REMEDY PASTE 57 GM TUBE TOP SCH ×4 (08:41→20:20)
[2020-02-09] MEDS: CALCIUM CARBONATE 500 MG TABLET GT SCH ×2 (08:41→20:20)
[2020-02-09] MEDS: CLOTRIMAZOLE 1% CREAM 30 GM TUBE TP SCH ×2 (08:43→20:20)
[2020-02-09] MEDS: HYDROGEN PEROXIDE 3% 118 ML BOTTLE TP SCH ×2 (09:31→20:54)
[2020-02-09] MEDS: TRIAMCINOLONE ACET 0.1% CREAM 15 GM TUBE TP SCH ×2 (09:37→20:20)
[2020-02-09] MEDS: JEVITY 1.2 1000 ML LIQUID GT PRN (16:36)
[2020-02-09] MEDS: ATORVASTATIN 10 MG TABLET GT SCH (20:19)
[2020-02-09] MEDS: MIRALAX 17 GM POWD.PACK GT SCH (20:19)
[2020-02-10] MEDS: ALBUTEROL SULFATE 2.5 MG/3 ML NEBU NEB SCH ×6 (02:30→23:52)
[2020-02-10] MEDS: IPRATROPIUM BROMIDE 0.5 MG/2.5 ML NEBU NEB SCH ×6 (02:30→23:52)
[2020-02-10] MEDS: CHOLECALCIFEROL 1,000 UNIT TABLET GT SCH (05:36)
[2020-02-10] MEDS: BUDESONIDE 0.5 MG/2 ML NEBU NEB SCH ×2 (06:50→20:08)
[2020-02-10 07:56] VITALS: BP 125/99
[2020-02-10] MEDS: TRIAMCINOLONE ACET 0.1% CREAM 15 GM TUBE TP SCH ×2 (09:00→21:17)
[2020-02-10] MEDS: HYDROGEN PEROXIDE 3% 118 ML BOTTLE TP SCH ×2 (09:00→21:05)
[2020-02-10] MEDS: Z GUARD REMEDY PASTE 57 GM TUBE TOP SCH ×4 (09:00→21:15)
[2020-02-10] MEDS: CLOTRIMAZOLE 1% CREAM 30 GM TUBE TP SCH ×2 (09:00→21:15)
[2020-02-10] MEDS: BACLOFEN 10 MG TABLET GT SCH ×2 (09:07→21:12)
[2020-02-10] MEDS: DOCUSATE SODIUM 100 MG/10 ML LIQUID UDC GT SCH (09:07)
[2020-02-10] MEDS: NUTRISOURCE FIBER 4 GM PACKET GT SCH ×2 (09:08→21:13)
[2020-02-10] MEDS: CALCIUM CARBONATE 500 MG TABLET GT SCH ×2 (09:08→21:13)
--- NOTE | 2020-02-10 14:00 | NUR ---
pt has a temperature 95 rectally,on walker hugger,warming blanket , after 2 hours temp recheck 97 ,on close observation.
[2020-02-10] MEDS: JEVITY 1.2 1000 ML LIQUID GT PRN (17:50)
--- NOTE | 2020-02-10 18:27 | NUR ---
Pt transfer from room 425 B to room 422,Spoke to Dione,Pt's sister aware of the transfer ,and agreed.
[2020-02-10 20:17] VITALS: BP 119/68
[2020-02-10] MEDS: ATORVASTATIN 10 MG TABLET GT SCH (21:13)
[2020-02-10] MEDS: MULTIVIT, IRON, MIN NO. 8, FA TABLET GT SCH (21:15)
[2020-02-11] MEDS: ALBUTEROL SULFATE 2.5 MG/3 ML NEBU NEB SCH ×6 (03:41→23:10)
[2020-02-11] MEDS: IPRATROPIUM BROMIDE 0.5 MG/2.5 ML NEBU NEB SCH ×6 (03:41→23:10)
[2020-02-11] MEDS: CHOLECALCIFEROL 1,000 UNIT TABLET GT SCH (05:42)
[2020-02-11] MEDS: HYDROGEN PEROXIDE 3% 118 ML BOTTLE TP SCH ×2 (07:28→21:05)
[2020-02-11] MEDS: BUDESONIDE 0.5 MG/2 ML NEBU NEB SCH ×2 (07:28→19:47)
[2020-02-11 07:39] VITALS: BP 117/63
[2020-02-11] MEDS: DOCUSATE SODIUM 100 MG/10 ML LIQUID UDC GT SCH (08:16)
[2020-02-11] MEDS: BACLOFEN 10 MG TABLET GT SCH ×2 (08:17→21:04)
[2020-02-11] MEDS: CALCIUM CARBONATE 500 MG TABLET GT SCH ×2 (08:20→21:04)
[2020-02-11] MEDS: NUTRISOURCE FIBER 4 GM PACKET GT SCH ×2 (08:20→21:04)
[2020-02-11] MEDS: TRIAMCINOLONE ACET 0.1% CREAM 15 GM TUBE TP SCH ×2 (08:20→21:05)
[2020-02-11] MEDS: CLOTRIMAZOLE 1% CREAM 30 GM TUBE TP SCH ×2 (08:20→21:05)
[2020-02-11] MEDS: Z GUARD REMEDY PASTE 57 GM TUBE TOP SCH ×4 (08:20→21:05)
[2020-02-11 20:19] VITALS: BP 122/65
[2020-02-11] MEDS: ATORVASTATIN 10 MG TABLET GT SCH (21:04)
[2020-02-11] MEDS: MIRALAX 17 GM POWD.PACK GT SCH (21:04)
[2020-02-12] MEDS: JEVITY 1.2 1000 ML LIQUID GT PRN (00:02)
[2020-02-12] MEDS: IPRATROPIUM BROMIDE 0.5 MG/2.5 ML NEBU NEB SCH ×6 (03:10→23:26)
[2020-02-12] MEDS: ALBUTEROL SULFATE 2.5 MG/3 ML NEBU NEB SCH ×6 (03:10→23:26)
[2020-02-12] MEDS: CHOLECALCIFEROL 1,000 UNIT TABLET GT SCH (06:40)
[2020-02-12] MEDS: BUDESONIDE 0.5 MG/2 ML NEBU NEB SCH ×2 (07:03→20:07)
[2020-02-12 07:29] VITALS: BP 107/59
[2020-02-12] MEDS: NUTRISOURCE FIBER 4 GM PACKET GT SCH ×2 (09:10→21:43)
[2020-02-12] MEDS: DOCUSATE SODIUM 100 MG/10 ML LIQUID UDC GT SCH (09:10)
[2020-02-12] MEDS: Z GUARD REMEDY PASTE 57 GM TUBE TOP SCH ×4 (09:11→21:43)
[2020-02-12] MEDS: BACLOFEN 10 MG TABLET GT SCH ×2 (09:11→21:43)
[2020-02-12] MEDS: CLOTRIMAZOLE 1% CREAM 30 GM TUBE TP SCH ×2 (09:11→21:44)
[2020-02-12] MEDS: TRIAMCINOLONE ACET 0.1% CREAM 15 GM TUBE TP SCH ×2 (09:11→21:44)
[2020-02-12] MEDS: CALCIUM CARBONATE 500 MG TABLET GT SCH ×2 (09:16→21:43)
[2020-02-12] MEDS: HYDROGEN PEROXIDE 3% 118 ML BOTTLE TP SCH ×2 (10:10→21:00)
[2020-02-12 20:05] VITALS: BP 109/73
[2020-02-12] MEDS: ATORVASTATIN 10 MG TABLET GT SCH (21:43)
[2020-02-12] MEDS: MULTIVIT, IRON, MIN NO. 8, FA TABLET GT SCH (21:43)
[2020-02-13] MEDS: IPRATROPIUM BROMIDE 0.5 MG/2.5 ML NEBU NEB SCH ×6 (03:43→23:22)
[2020-02-13] MEDS: ALBUTEROL SULFATE 2.5 MG/3 ML NEBU NEB SCH ×6 (03:43→23:22)
[2020-02-13] MEDS: JEVITY 1.2 1000 ML LIQUID GT PRN (05:07)
[2020-02-13] MEDS: CHOLECALCIFEROL 1,000 UNIT TABLET GT SCH (06:02)
[2020-02-13 07:44] VITALS: BP 127/77
[2020-02-13] MEDS: BUDESONIDE 0.5 MG/2 ML NEBU NEB SCH ×2 (07:50→19:57)
[2020-02-13] MEDS: DOCUSATE SODIUM 100 MG/10 ML LIQUID UDC GT SCH (08:32)
[2020-02-13] MEDS: BACLOFEN 10 MG TABLET GT SCH ×2 (08:33→21:51)
[2020-02-13] MEDS: CALCIUM CARBONATE 500 MG TABLET GT SCH ×2 (08:34→21:52)
[2020-02-13] MEDS: NUTRISOURCE FIBER 4 GM PACKET GT SCH ×2 (08:34→21:52)
[2020-02-13] MEDS: Z GUARD REMEDY PASTE 57 GM TUBE TOP SCH ×4 (08:35→21:52)
[2020-02-13] MEDS: CLOTRIMAZOLE 1% CREAM 30 GM TUBE TP SCH ×2 (08:35→21:52)
[2020-02-13] MEDS: TRIAMCINOLONE ACET 0.1% CREAM 15 GM TUBE TP SCH ×2 (08:36→21:52)
[2020-02-13] MEDS: HYDROGEN PEROXIDE 3% 118 ML BOTTLE TP SCH ×2 (09:53→21:12)
[2020-02-13] MEDS: ATORVASTATIN 10 MG TABLET GT SCH (21:51)
[2020-02-13] MEDS: MIRALAX 17 GM POWD.PACK GT SCH (21:52)
[2020-02-13 22:17] VITALS: BP 103/48
[2020-02-14] MEDS: IPRATROPIUM BROMIDE 0.5 MG/2.5 ML NEBU NEB SCH ×6 (03:06→23:33)
[2020-02-14] MEDS: ALBUTEROL SULFATE 2.5 MG/3 ML NEBU NEB SCH ×6 (03:06→23:33)
[2020-02-14] MEDS: JEVITY 1.2 1000 ML LIQUID GT PRN (04:09)
[2020-02-14] MEDS: CHOLECALCIFEROL 1,000 UNIT TABLET GT SCH (05:55)
[2020-02-14] MEDS: DOCUSATE SODIUM 100 MG/10 ML LIQUID UDC GT SCH (08:10)
[2020-02-14] MEDS: CALCIUM CARBONATE 500 MG TABLET GT SCH ×2 (08:11→20:57)
[2020-02-14] MEDS: NUTRISOURCE FIBER 4 GM PACKET GT SCH ×2 (08:11→21:01)
[2020-02-14] MEDS: BACLOFEN 10 MG TABLET GT SCH ×2 (08:11→21:01)
[2020-02-14] MEDS: Z GUARD REMEDY PASTE 57 GM TUBE TOP SCH ×4 (08:11→21:00)
[2020-02-14] MEDS: BUDESONIDE 0.5 MG/2 ML NEBU NEB SCH ×2 (08:20→19:55)
[2020-02-14] MEDS: TRIAMCINOLONE ACET 0.1% CREAM 15 GM TUBE TP SCH ×2 (09:00→21:00)
[2020-02-14] MEDS: CLOTRIMAZOLE 1% CREAM 30 GM TUBE TP SCH ×2 (09:00→21:00)
[2020-02-14] MEDS: HYDROGEN PEROXIDE 3% 118 ML BOTTLE TP SCH ×2 (09:00→21:00)
[2020-02-14] MEDS: MULTIVIT, IRON, MIN NO. 8, FA TABLET GT SCH (20:58)
[2020-02-14] MEDS: ATORVASTATIN 10 MG TABLET GT SCH (21:01)
[2020-02-14 22:49] VITALS: BP 124/64
[2020-02-15] MEDS: IPRATROPIUM BROMIDE 0.5 MG/2.5 ML NEBU NEB SCH ×6 (03:20→23:50)
[2020-02-15] MEDS: ALBUTEROL SULFATE 2.5 MG/3 ML NEBU NEB SCH ×6 (03:20→23:50)
[2020-02-15] MEDS: CHOLECALCIFEROL 1,000 UNIT TABLET GT SCH (05:37)
[2020-02-15 08:00] VITALS: BP 98/54
[2020-02-15] MEDS: BUDESONIDE 0.5 MG/2 ML NEBU NEB SCH ×2 (08:12→20:29)
[2020-02-15] MEDS: DOCUSATE SODIUM 100 MG/10 ML LIQUID UDC GT SCH (08:20)
[2020-02-15] MEDS: CLOTRIMAZOLE 1% CREAM 30 GM TUBE TP SCH ×2 (08:21→21:03)
[2020-02-15] MEDS: NUTRISOURCE FIBER 4 GM PACKET GT SCH ×2 (08:21→21:02)
[2020-02-15] MEDS: Z GUARD REMEDY PASTE 57 GM TUBE TOP SCH ×4 (08:21→21:03)
[2020-02-15] MEDS: CALCIUM CARBONATE 500 MG TABLET GT SCH ×2 (08:21→21:02)
[2020-02-15] MEDS: BACLOFEN 10 MG TABLET GT SCH ×2 (08:21→21:02)
[2020-02-15] MEDS: TRIAMCINOLONE ACET 0.1% CREAM 15 GM TUBE TP SCH ×2 (08:21→21:04)
[2020-02-15] MEDS: HYDROGEN PEROXIDE 3% 118 ML BOTTLE TP SCH ×2 (10:10→21:00)
[2020-02-15] MEDS: JEVITY 1.2 1000 ML LIQUID GT PRN (11:44)
[2020-02-15] MEDS: ATORVASTATIN 10 MG TABLET GT SCH (21:02)
[2020-02-15 23:21] VITALS: BP 130/72
[2020-02-16] MEDS: ALBUTEROL SULFATE 2.5 MG/3 ML NEBU NEB SCH ×6 (03:29→23:33)
[2020-02-16] MEDS: IPRATROPIUM BROMIDE 0.5 MG/2.5 ML NEBU NEB SCH ×6 (03:29→23:33)
[2020-02-16] MEDS: CHOLECALCIFEROL 1,000 UNIT TABLET GT SCH (05:55)
[2020-02-16] MEDS: BUDESONIDE 0.5 MG/2 ML NEBU NEB SCH ×2 (07:50→20:15)
[2020-02-16 07:54] VITALS: BP 106/83
[2020-02-16] MEDS: CLOTRIMAZOLE 1% CREAM 30 GM TUBE TP SCH ×2 (08:14→20:41)
[2020-02-16] MEDS: CALCIUM CARBONATE 500 MG TABLET GT SCH ×2 (08:14→20:40)
[2020-02-16] MEDS: BACLOFEN 10 MG TABLET GT SCH ×2 (08:14→20:40)
[2020-02-16] MEDS: TRIAMCINOLONE ACET 0.1% CREAM 15 GM TUBE TP SCH (08:14)
[2020-02-16] MEDS: NUTRISOURCE FIBER 4 GM PACKET GT SCH ×2 (08:14→20:40)
[2020-02-16] MEDS: DOCUSATE SODIUM 100 MG/10 ML LIQUID UDC GT SCH (08:14)
[2020-02-16] MEDS: Z GUARD REMEDY PASTE 57 GM TUBE TOP SCH ×4 (08:14→20:41)
[2020-02-16] MEDS: HYDROGEN PEROXIDE 3% 118 ML BOTTLE TP SCH ×2 (09:00→21:26)
[2020-02-16] MEDS: JEVITY 1.2 1000 ML LIQUID GT PRN (11:32)
[2020-02-16 20:02] VITALS: BP 113/80
[2020-02-16] MEDS: ATORVASTATIN 10 MG TABLET GT SCH (20:40)
[2020-02-16] MEDS: MIRALAX 17 GM POWD.PACK GT SCH (20:40)
[2020-02-16] MEDS: MULTIVIT, IRON, MIN NO. 8, FA TABLET GT SCH (20:40)
[2020-02-17] MEDS: ALBUTEROL SULFATE 2.5 MG/3 ML NEBU NEB SCH ×6 (02:50→23:20)
[2020-02-17] MEDS: IPRATROPIUM BROMIDE 0.5 MG/2.5 ML NEBU NEB SCH ×6 (02:50→23:20)
[2020-02-17] MEDS: CHOLECALCIFEROL 1,000 UNIT TABLET GT SCH (06:41)
[2020-02-17] MEDS: BUDESONIDE 0.5 MG/2 ML NEBU NEB SCH ×2 (07:15→20:12)
[2020-02-17 07:44] VITALS: BP 128/72
[2020-02-17] MEDS: HYDROGEN PEROXIDE 3% 118 ML BOTTLE TP SCH ×2 (09:08→21:24)
[2020-02-17] MEDS: BACLOFEN 10 MG TABLET GT SCH ×2 (09:35→21:21)
[2020-02-17] MEDS: NUTRISOURCE FIBER 4 GM PACKET GT SCH ×2 (09:35→21:21)
[2020-02-17] MEDS: DOCUSATE SODIUM 100 MG/10 ML LIQUID UDC GT SCH (09:35)
[2020-02-17] MEDS: Z GUARD REMEDY PASTE 57 GM TUBE TOP SCH ×3 (09:36→21:21)
[2020-02-17] MEDS: CALCIUM CARBONATE 500 MG TABLET GT SCH ×2 (09:36→21:21)
[2020-02-17] MEDS: CLOTRIMAZOLE 1% CREAM 30 GM TUBE TP SCH (09:38)
[2020-02-17] MEDS: JEVITY 1.2 1000 ML LIQUID GT PRN (19:10)
[2020-02-17 20:04] VITALS: BP 129/53
[2020-02-17] MEDS: ATORVASTATIN 10 MG TABLET GT SCH (21:21)
[2020-02-18] MEDS: IPRATROPIUM BROMIDE 0.5 MG/2.5 ML NEBU NEB SCH ×6 (03:00→22:43)
[2020-02-18] MEDS: ALBUTEROL SULFATE 2.5 MG/3 ML NEBU NEB SCH ×6 (03:00→22:43)
[2020-02-18] MEDS: CHOLECALCIFEROL 1,000 UNIT TABLET GT SCH (06:00)
[2020-02-18] MEDS: HYDROGEN PEROXIDE 3% 118 ML BOTTLE TP SCH ×2 (07:29→21:16)
[2020-02-18] MEDS: BUDESONIDE 0.5 MG/2 ML NEBU NEB SCH ×2 (07:29→19:54)
[2020-02-18 07:51] VITALS: BP 111/86
[2020-02-18] MEDS: NUTRISOURCE FIBER 4 GM PACKET GT SCH ×2 (09:26→21:23)
[2020-02-18] MEDS: Z GUARD REMEDY PASTE 57 GM TUBE TOP SCH ×2 (09:26→21:23)
[2020-02-18] MEDS: CALCIUM CARBONATE 500 MG TABLET GT SCH ×2 (09:26→21:23)
[2020-02-18] MEDS: DOCUSATE SODIUM 100 MG/10 ML LIQUID UDC GT SCH (09:28)
[2020-02-18] MEDS: BACLOFEN 10 MG TABLET GT SCH ×2 (09:30→21:23)
[2020-02-18] MEDS: JEVITY 1.2 1000 ML LIQUID GT PRN (18:30)
[2020-02-18 20:12] VITALS: BP 147/91
[2020-02-18] MEDS: MULTIVIT, IRON, MIN NO. 8, FA TABLET GT SCH (21:23)
[2020-02-18] MEDS: MIRALAX 17 GM POWD.PACK GT SCH (21:23)
[2020-02-18] MEDS: ATORVASTATIN 10 MG TABLET GT SCH (21:23)
[2020-02-19] MEDS: CHOLECALCIFEROL 1,000 UNIT TABLET GT SCH (07:08)
[2020-02-19 07:42] VITALS: BP 120/67
[2020-02-19] MEDS: BUDESONIDE 0.5 MG/2 ML NEBU NEB SCH ×2 (08:15→20:50)
[2020-02-19] MEDS: ALBUTEROL SULFATE 2.5 MG/3 ML NEBU NEB SCH ×4 (08:15→20:40)
[2020-02-19] MEDS: IPRATROPIUM BROMIDE 0.5 MG/2.5 ML NEBU NEB SCH ×4 (08:15→20:40)
[2020-02-19] MEDS: Z GUARD REMEDY PASTE 57 GM TUBE TOP SCH ×2 (08:34→21:29)
[2020-02-19] MEDS: NUTRISOURCE FIBER 4 GM PACKET GT SCH ×2 (08:34→21:29)
[2020-02-19] MEDS: DOCUSATE SODIUM 100 MG/10 ML LIQUID UDC GT SCH (08:34)
[2020-02-19] MEDS: BACLOFEN 10 MG TABLET GT SCH ×2 (08:34→21:29)
[2020-02-19] MEDS: CALCIUM CARBONATE 500 MG TABLET GT SCH ×2 (08:34→21:29)
[2020-02-19] MEDS: HYDROGEN PEROXIDE 3% 118 ML BOTTLE TP SCH ×2 (10:20→21:00)
[2020-02-19 20:07] VITALS: BP 116/80
[2020-02-19] MEDS: ATORVASTATIN 10 MG TABLET GT SCH (21:29)
[2020-02-20] MEDS: IPRATROPIUM BROMIDE 0.5 MG/2.5 ML NEBU NEB SCH ×7 (00:09→23:06)
[2020-02-20] MEDS: ALBUTEROL SULFATE 2.5 MG/3 ML NEBU NEB SCH ×7 (00:09→23:06)
[2020-02-20] MEDS: CHOLECALCIFEROL 1,000 UNIT TABLET GT SCH (05:58)
[2020-02-20 07:38] VITALS: BP 109/73
[2020-02-20] MEDS: BUDESONIDE 0.5 MG/2 ML NEBU NEB SCH ×2 (08:30→18:56)
[2020-02-20] MEDS: DOCUSATE SODIUM 100 MG/10 ML LIQUID UDC GT SCH (08:35)
[2020-02-20] MEDS: NUTRISOURCE FIBER 4 GM PACKET GT SCH ×2 (08:36→21:49)
[2020-02-20] MEDS: BACLOFEN 10 MG TABLET GT SCH ×2 (08:36→21:49)
[2020-02-20] MEDS: CALCIUM CARBONATE 500 MG TABLET GT SCH ×2 (08:36→21:49)
[2020-02-20] MEDS: Z GUARD REMEDY PASTE 57 GM TUBE TOP SCH ×2 (08:37→21:49)
[2020-02-20] MEDS: HYDROGEN PEROXIDE 3% 118 ML BOTTLE TP SCH ×2 (09:55→20:58)
[2020-02-20] MEDS: JEVITY 1.2 1000 ML LIQUID GT PRN (17:53)
--- NOTE | 2020-02-20 18:00 | NUR ---
PT. SEEN AND EXAMINED BY DR. DOMINGUEZ AND WITH NNO.
[2020-02-20 20:00] VITALS: BP 135/96
[2020-02-20] MEDS: ATORVASTATIN 10 MG TABLET GT SCH (21:49)
[2020-02-20] MEDS: MIRALAX 17 GM POWD.PACK GT SCH (21:49)
[2020-02-20] MEDS: MULTIVIT, IRON, MIN NO. 8, FA TABLET GT SCH (21:49)
[2020-02-21] MEDS: ALBUTEROL SULFATE 2.5 MG/3 ML NEBU NEB SCH ×6 (03:05→22:38)
[2020-02-21] MEDS: IPRATROPIUM BROMIDE 0.5 MG/2.5 ML NEBU NEB SCH ×6 (03:05→22:38)
[2020-02-21] MEDS: CHOLECALCIFEROL 1,000 UNIT TABLET GT SCH (05:51)
[2020-02-21] MEDS: BUDESONIDE 0.5 MG/2 ML NEBU NEB SCH ×2 (07:39→19:56)
[2020-02-21 07:41] VITALS: BP 122/83
--- NOTE | 2020-02-21 08:20 | NUR ---
PT. REMAINS ON NPO(NOTHING BY GT ) X 6 HRS AND OPERATIONS LEAD ROMY WILL DO PROCEDURE BY 3 PM AND PT. IN AGREEMENT.
--- NOTE | 2020-02-21 08:47 | NUR ---
PT'S SISTER RESP. CONSTITUTION PARTY ALEXA STOVER IN AGREEMENT WITH ROOM CHANGE TO ROOM 401B.
[2020-02-21] MEDS: HYDROGEN PEROXIDE 3% 118 ML BOTTLE TP SCH ×2 (09:00→21:39)
[2020-02-21] MEDS: BACLOFEN 10 MG TABLET GT SCH ×2 (09:02→20:07)
[2020-02-21] MEDS: DOCUSATE SODIUM 100 MG/10 ML LIQUID UDC GT SCH (09:02)
[2020-02-21] MEDS: NUTRISOURCE FIBER 4 GM PACKET GT SCH ×2 (09:02→20:07)
[2020-02-21] MEDS: Z GUARD REMEDY PASTE 57 GM TUBE TOP SCH ×2 (09:03→20:07)
[2020-02-21] MEDS: CALCIUM CARBONATE 500 MG TABLET GT SCH ×2 (09:03→20:07)
[2020-02-21 20:05] VITALS: BP 127/88
[2020-02-21] MEDS: ATORVASTATIN 10 MG TABLET GT SCH (20:07)
[2020-02-22] MEDS: IPRATROPIUM BROMIDE 0.5 MG/2.5 ML NEBU NEB SCH ×6 (02:30→22:50)
[2020-02-22] MEDS: ALBUTEROL SULFATE 2.5 MG/3 ML NEBU NEB SCH ×6 (02:30→22:50)
[2020-02-22] MEDS: CHOLECALCIFEROL 1,000 UNIT TABLET GT SCH (05:38)
[2020-02-22] MEDS: JEVITY 1.2 1000 ML LIQUID GT PRN (05:38)
[2020-02-22] MEDS: BUDESONIDE 0.5 MG/2 ML NEBU NEB SCH ×2 (07:28→20:06)
[2020-02-22 07:53] VITALS: BP 124/83
[2020-02-22] MEDS: HYDROGEN PEROXIDE 3% 118 ML BOTTLE TP SCH ×2 (09:00→20:06)
[2020-02-22] MEDS: DOCUSATE SODIUM 100 MG/10 ML LIQUID UDC GT SCH (09:35)
[2020-02-22] MEDS: NUTRISOURCE FIBER 4 GM PACKET GT SCH ×2 (09:35→20:57)
[2020-02-22] MEDS: CALCIUM CARBONATE 500 MG TABLET GT SCH ×2 (09:35→20:57)
[2020-02-22] MEDS: Z GUARD REMEDY PASTE 57 GM TUBE TOP SCH ×2 (09:35→21:01)
[2020-02-22] MEDS: BACLOFEN 10 MG TABLET GT SCH ×2 (09:35→20:57)
[2020-02-22 19:59] VITALS: BP 107/62
[2020-02-22] MEDS: ATORVASTATIN 10 MG TABLET GT SCH (20:57)
[2020-02-22] MEDS: MULTIVIT, IRON, MIN NO. 8, FA TABLET GT SCH (21:01)
[2020-02-23] MEDS: ALBUTEROL SULFATE 2.5 MG/3 ML NEBU NEB SCH ×6 (02:40→22:43)
[2020-02-23] MEDS: IPRATROPIUM BROMIDE 0.5 MG/2.5 ML NEBU NEB SCH ×6 (02:40→22:43)
[2020-02-23] MEDS: CHOLECALCIFEROL 1,000 UNIT TABLET GT SCH (05:32)
[2020-02-23] MEDS: HYDROGEN PEROXIDE 3% 118 ML BOTTLE TP SCH ×2 (07:30→20:06)
[2020-02-23] MEDS: BUDESONIDE 0.5 MG/2 ML NEBU NEB SCH ×2 (07:30→20:06)
[2020-02-23 07:51] VITALS: BP 123/75
[2020-02-23] MEDS: Z GUARD REMEDY PASTE 57 GM TUBE TOP SCH ×2 (09:00→21:31)
[2020-02-23] MEDS: BACLOFEN 10 MG TABLET GT SCH ×2 (09:00→21:23)
[2020-02-23] MEDS: NUTRISOURCE FIBER 4 GM PACKET GT SCH ×2 (09:00→21:28)
[2020-02-23] MEDS: DOCUSATE SODIUM 100 MG/10 ML LIQUID UDC GT SCH (09:00)
[2020-02-23] MEDS: CALCIUM CARBONATE 500 MG TABLET GT SCH ×2 (09:00→21:29)
--- NOTE | 2020-02-23 09:00 | NUR ---
SEEN BY HALINA GREY N.P AND WITH NNO.
[2020-02-23 21:20] VITALS: BP 126/75
[2020-02-23] MEDS: MIRALAX 17 GM POWD.PACK GT SCH (21:24)
[2020-02-23] MEDS: ATORVASTATIN 10 MG TABLET GT SCH (21:24)
[2020-02-24] MEDS: IPRATROPIUM BROMIDE 0.5 MG/2.5 ML NEBU NEB SCH ×6 (02:40→23:06)
[2020-02-24] MEDS: ALBUTEROL SULFATE 2.5 MG/3 ML NEBU NEB SCH ×6 (02:40→23:06)
[2020-02-24] MEDS: CHOLECALCIFEROL 1,000 UNIT TABLET GT SCH (05:36)
[2020-02-24] MEDS: BUDESONIDE 0.5 MG/2 ML NEBU NEB SCH ×2 (07:35→19:00)
[2020-02-24 07:48] VITALS: BP 130/79
[2020-02-24] MEDS: DOCUSATE SODIUM 100 MG/10 ML LIQUID UDC GT SCH (08:33)
[2020-02-24] MEDS: CALCIUM CARBONATE 500 MG TABLET GT SCH ×2 (08:33→21:00)
[2020-02-24] MEDS: BACLOFEN 10 MG TABLET GT SCH ×2 (08:33→21:00)
[2020-02-24] MEDS: NUTRISOURCE FIBER 4 GM PACKET GT SCH ×2 (08:33→21:00)
[2020-02-24] MEDS: Z GUARD REMEDY PASTE 57 GM TUBE TOP SCH ×2 (08:34→21:00)
[2020-02-24] MEDS: HYDROGEN PEROXIDE 3% 118 ML BOTTLE TP SCH ×2 (09:31→21:12)
--- NOTE | 2020-02-24 10:00 | NUR ---
SEEN BY HALINA FELDMAN AND WITH NNO.
[2020-02-24 20:18] VITALS: BP 137/80
[2020-02-24] MEDS: ATORVASTATIN 10 MG TABLET GT SCH (21:00)
[2020-02-24] MEDS: MULTIVIT, IRON, MIN NO. 8, FA TABLET GT SCH (21:00)
[2020-02-25] MEDS: IPRATROPIUM BROMIDE 0.5 MG/2.5 ML NEBU NEB SCH ×6 (03:01→23:02)
[2020-02-25] MEDS: ALBUTEROL SULFATE 2.5 MG/3 ML NEBU NEB SCH ×6 (03:01→23:02)
[2020-02-25] MEDS: JEVITY 1.2 1000 ML LIQUID GT PRN (05:30)
[2020-02-25] MEDS: CHOLECALCIFEROL 1,000 UNIT TABLET GT SCH (05:52)
[2020-02-25 07:40] VITALS: BP 120/64
[2020-02-25] MEDS: BUDESONIDE 0.5 MG/2 ML NEBU NEB SCH ×2 (07:52→20:00)
[2020-02-25] MEDS: NUTRISOURCE FIBER 4 GM PACKET GT SCH ×2 (08:54→20:34)
[2020-02-25] MEDS: CALCIUM CARBONATE 500 MG TABLET GT SCH ×2 (08:54→20:34)
[2020-02-25] MEDS: BACLOFEN 10 MG TABLET GT SCH ×2 (08:54→20:34)
[2020-02-25] MEDS: DOCUSATE SODIUM 100 MG/10 ML LIQUID UDC GT SCH (08:54)
[2020-02-25] MEDS: Z GUARD REMEDY PASTE 57 GM TUBE TOP SCH ×2 (08:54→20:35)
[2020-02-25] MEDS: HYDROGEN PEROXIDE 3% 118 ML BOTTLE TP SCH ×2 (09:00→21:18)
[2020-02-25 20:02] VITALS: BP 106/68
[2020-02-25] MEDS: MIRALAX 17 GM POWD.PACK GT SCH (20:34)
[2020-02-25] MEDS: ATORVASTATIN 10 MG TABLET GT SCH (20:34)
[2020-02-26] MEDS: IPRATROPIUM BROMIDE 0.5 MG/2.5 ML NEBU NEB SCH ×6 (02:40→23:10)
[2020-02-26] MEDS: ALBUTEROL SULFATE 2.5 MG/3 ML NEBU NEB SCH ×6 (02:40→23:10)
[2020-02-26] MEDS: CHOLECALCIFEROL 1,000 UNIT TABLET GT SCH (05:36)
[2020-02-26] MEDS: JEVITY 1.2 1000 ML LIQUID GT PRN (05:39)
[2020-02-26] MEDS: BUDESONIDE 0.5 MG/2 ML NEBU NEB SCH ×2 (07:04→20:15)
[2020-02-26 07:35] VITALS: BP 110/60
[2020-02-26] MEDS: DOCUSATE SODIUM 100 MG/10 ML LIQUID UDC GT SCH (08:34)
[2020-02-26] MEDS: NUTRISOURCE FIBER 4 GM PACKET GT SCH ×2 (08:34→20:09)
[2020-02-26] MEDS: BACLOFEN 10 MG TABLET GT SCH ×2 (08:34→20:09)
[2020-02-26] MEDS: Z GUARD REMEDY PASTE 57 GM TUBE TOP SCH ×2 (08:34→20:13)
[2020-02-26] MEDS: CALCIUM CARBONATE 500 MG TABLET GT SCH ×2 (08:34→20:09)
[2020-02-26] MEDS: HYDROGEN PEROXIDE 3% 118 ML BOTTLE TP SCH ×2 (08:35→21:42)
[2020-02-26] MEDS: MULTIVIT, IRON, MIN NO. 8, FA TABLET GT SCH (20:09)
[2020-02-26] MEDS: ATORVASTATIN 10 MG TABLET GT SCH (20:09)
[2020-02-26 20:11] VITALS: BP 149/83
[2020-02-27] MEDS: IPRATROPIUM BROMIDE 0.5 MG/2.5 ML NEBU NEB SCH ×6 (02:42→23:04)
[2020-02-27] MEDS: ALBUTEROL SULFATE 2.5 MG/3 ML NEBU NEB SCH ×6 (02:42→23:04)
[2020-02-27] MEDS: CHOLECALCIFEROL 1,000 UNIT TABLET GT SCH (05:42)
[2020-02-27] MEDS: JEVITY 1.2 1000 ML LIQUID GT PRN (05:42)
[2020-02-27] MEDS: BUDESONIDE 0.5 MG/2 ML NEBU NEB SCH ×2 (07:02→18:59)
[2020-02-27 07:40] VITALS: BP 112/76
[2020-02-27] MEDS: HYDROGEN PEROXIDE 3% 118 ML BOTTLE TP SCH ×2 (08:17→21:13)
[2020-02-27] MEDS: NUTRISOURCE FIBER 4 GM PACKET GT SCH ×2 (08:48→21:03)
[2020-02-27] MEDS: Z GUARD REMEDY PASTE 57 GM TUBE TOP SCH ×2 (08:48→21:05)
[2020-02-27] MEDS: CALCIUM CARBONATE 500 MG TABLET GT SCH ×2 (08:48→21:03)
[2020-02-27] MEDS: DOCUSATE SODIUM 100 MG/10 ML LIQUID UDC GT SCH (08:48)
[2020-02-27] MEDS: BACLOFEN 10 MG TABLET GT SCH ×2 (08:48→21:02)
[2020-02-27 20:46] VITALS: BP 108/67
[2020-02-27] MEDS: ATORVASTATIN 10 MG TABLET GT SCH (21:02)
[2020-02-27] MEDS: MIRALAX 17 GM POWD.PACK GT SCH (21:02)
[2020-02-28] MEDS: IPRATROPIUM BROMIDE 0.5 MG/2.5 ML NEBU NEB SCH ×6 (02:59→22:51)
[2020-02-28] MEDS: ALBUTEROL SULFATE 2.5 MG/3 ML NEBU NEB SCH ×6 (02:59→22:51)
[2020-02-28] MEDS: CHOLECALCIFEROL 1,000 UNIT TABLET GT SCH (05:34)
[2020-02-28] MEDS: BUDESONIDE 0.5 MG/2 ML NEBU NEB SCH ×2 (07:15→20:17)
[2020-02-28 07:42] VITALS: BP 97/75
[2020-02-28] MEDS: HYDROGEN PEROXIDE 3% 118 ML BOTTLE TP SCH ×2 (09:00→20:17)
[2020-02-28] MEDS: CALCIUM CARBONATE 500 MG TABLET GT SCH ×2 (09:26→21:30)
[2020-02-28] MEDS: BACLOFEN 10 MG TABLET GT SCH ×2 (09:26→21:29)
[2020-02-28] MEDS: DOCUSATE SODIUM 100 MG/10 ML LIQUID UDC GT SCH (09:26)
[2020-02-28] MEDS: NUTRISOURCE FIBER 4 GM PACKET GT SCH ×2 (09:26→21:29)
[2020-02-28] MEDS: Z GUARD REMEDY PASTE 57 GM TUBE TOP SCH ×2 (09:27→21:31)
[2020-02-28] MEDS: JEVITY 1.2 1000 ML LIQUID GT PRN (17:30)
[2020-02-28 20:11] VITALS: BP 98/53
[2020-02-28] MEDS: ATORVASTATIN 10 MG TABLET GT SCH (21:29)
[2020-02-28] MEDS: MULTIVIT, IRON, MIN NO. 8, FA TABLET GT SCH (21:31)
[2020-02-29] MEDS: IPRATROPIUM BROMIDE 0.5 MG/2.5 ML NEBU NEB SCH ×6 (02:49→22:35)
[2020-02-29] MEDS: ALBUTEROL SULFATE 2.5 MG/3 ML NEBU NEB SCH ×6 (02:50→22:35)
[2020-02-29] MEDS: CHOLECALCIFEROL 1,000 UNIT TABLET GT SCH (05:35)
[2020-02-29] MEDS: BUDESONIDE 0.5 MG/2 ML NEBU NEB SCH ×2 (07:03→18:42)
[2020-02-29 07:40] VITALS: BP 97/62
[2020-02-29] MEDS: DOCUSATE SODIUM 100 MG/10 ML LIQUID UDC GT SCH (08:22)
[2020-02-29] MEDS: CALCIUM CARBONATE 500 MG TABLET GT SCH ×2 (08:22→20:23)
[2020-02-29] MEDS: NUTRISOURCE FIBER 4 GM PACKET GT SCH ×2 (08:22→20:23)
[2020-02-29] MEDS: BACLOFEN 10 MG TABLET GT SCH ×2 (08:22→20:23)
[2020-02-29] MEDS: Z GUARD REMEDY PASTE 57 GM TUBE TOP SCH ×2 (08:23→20:23)
[2020-02-29] MEDS: HYDROGEN PEROXIDE 3% 118 ML BOTTLE TP SCH ×2 (08:57→18:43)
--- NOTE | 2020-02-29 10:50 | NUR ---
Seen by Dorothy JESUS no new orders noted.
--- NOTE | 2020-02-29 15:22 | NUR ---
New tx orders noted for gt site redness and carried out.
[2020-02-29 20:16] VITALS: BP 113/72
[2020-02-29] MEDS: ATORVASTATIN 10 MG TABLET GT SCH (20:23)
[2020-02-29] MEDS: COD LIVER OIL/ZINC OXIDE OINT 113 GM TUBE TP SCH (20:23)
[2020-03-01] MEDS: ALBUTEROL SULFATE 2.5 MG/3 ML NEBU NEB SCH ×6 (02:33→22:50)
[2020-03-01] MEDS: IPRATROPIUM BROMIDE 0.5 MG/2.5 ML NEBU NEB SCH ×6 (02:33→22:50)
[2020-03-01] MEDS: JEVITY 1.2 1000 ML LIQUID GT PRN (05:00)
[2020-03-01] MEDS: CHOLECALCIFEROL 1,000 UNIT TABLET GT SCH (05:44)
[2020-03-01 07:26] VITALS: BP 107/81
[2020-03-01] MEDS: BUDESONIDE 0.5 MG/2 ML NEBU NEB SCH ×2 (07:29→20:14)
[2020-03-01] MEDS: HYDROGEN PEROXIDE 3% 118 ML BOTTLE TP SCH ×2 (07:29→20:14)
[2020-03-01] MEDS: DOCUSATE SODIUM 100 MG/10 ML LIQUID UDC GT SCH (08:03)
[2020-03-01] MEDS: NUTRISOURCE FIBER 4 GM PACKET GT SCH ×2 (08:03→21:01)
[2020-03-01] MEDS: BACLOFEN 10 MG TABLET GT SCH ×2 (08:03→20:59)
[2020-03-01] MEDS: CALCIUM CARBONATE 500 MG TABLET GT SCH ×2 (08:05→21:01)
[2020-03-01] MEDS: COD LIVER OIL/ZINC OXIDE OINT 113 GM TUBE TP SCH ×2 (08:05→21:03)
[2020-03-01] MEDS: Z GUARD REMEDY PASTE 57 GM TUBE TOP SCH ×2 (08:05→21:03)
[2020-03-01 20:11] VITALS: BP 109/70
[2020-03-01] MEDS: MIRALAX 17 GM POWD.PACK GT SCH (20:59)
[2020-03-01] MEDS: ATORVASTATIN 10 MG TABLET GT SCH (20:59)
[2020-03-01] MEDS: MULTIVIT, IRON, MIN NO. 8, FA TABLET GT SCH (21:02)
[2020-03-02] MEDS: IPRATROPIUM BROMIDE 0.5 MG/2.5 ML NEBU NEB SCH ×6 (02:50→22:51)
[2020-03-02] MEDS: ALBUTEROL SULFATE 2.5 MG/3 ML NEBU NEB SCH ×6 (02:50→22:51)
[2020-03-02] MEDS: CHOLECALCIFEROL 1,000 UNIT TABLET GT SCH (05:46)
[2020-03-02] MEDS: JEVITY 1.2 1000 ML LIQUID GT PRN (05:47)
[2020-03-02] MEDS: BUDESONIDE 0.5 MG/2 ML NEBU NEB SCH ×2 (07:03→20:00)
[2020-03-02 07:32] VITALS: BP 103/58
[2020-03-02] MEDS: DOCUSATE SODIUM 100 MG/10 ML LIQUID UDC GT SCH (08:41)
[2020-03-02] MEDS: BACLOFEN 10 MG TABLET GT SCH ×2 (08:41→21:24)
[2020-03-02] MEDS: Z GUARD REMEDY PASTE 57 GM TUBE TOP SCH ×2 (08:42→21:27)
[2020-03-02] MEDS: NUTRISOURCE FIBER 4 GM PACKET GT SCH ×2 (08:42→21:25)
[2020-03-02] MEDS: COD LIVER OIL/ZINC OXIDE OINT 113 GM TUBE TP SCH ×2 (08:42→21:27)
[2020-03-02] MEDS: CALCIUM CARBONATE 500 MG TABLET GT SCH ×2 (08:42→21:25)
[2020-03-02] MEDS: HYDROGEN PEROXIDE 3% 118 ML BOTTLE TP SCH ×2 (09:32→20:00)
--- NOTE | 2020-03-02 13:58 | NUR ---
INTERDISCIPLINARY PLAN OF CARE CONFERENCE was held today. Patient's family lives out of state, and were not available to participate in the meeting. Dr. Underwood and the Interdisciplinary Team reviewed the current plan of care in detail. RN reported on patient's medical condition. No major changes in condition were reported. See RN IDT conference notes. See all disciplines IDT notes and physician's progress notes for additional details.
--- NOTE | 2020-03-02 15:30 | NUR ---
Covid 19 test done as ordered.
[2020-03-02 20:22] VITALS: BP 112/80
[2020-03-02] MEDS: ATORVASTATIN 10 MG TABLET GT SCH (21:25)
[2020-03-03] MEDS: IPRATROPIUM BROMIDE 0.5 MG/2.5 ML NEBU NEB SCH ×6 (02:41→22:42)
[2020-03-03] MEDS: ALBUTEROL SULFATE 2.5 MG/3 ML NEBU NEB SCH ×6 (02:41→22:42)
[2020-03-03] MEDS: CHOLECALCIFEROL 1,000 UNIT TABLET GT SCH (05:31)
[2020-03-03] MEDS: BUDESONIDE 0.5 MG/2 ML NEBU NEB SCH ×2 (07:08→19:38)
[2020-03-03] MEDS: HYDROGEN PEROXIDE 3% 118 ML BOTTLE TP SCH ×2 (07:08→20:51)
[2020-03-03 07:38] VITALS: BP 152/94
[2020-03-03] MEDS: DOCUSATE SODIUM 100 MG/10 ML LIQUID UDC GT SCH (09:20)
[2020-03-03] MEDS: BACLOFEN 10 MG TABLET GT SCH ×2 (09:20→21:38)
[2020-03-03] MEDS: NUTRISOURCE FIBER 4 GM PACKET GT SCH ×2 (09:21→21:40)
[2020-03-03] MEDS: CALCIUM CARBONATE 500 MG TABLET GT SCH ×2 (09:21→21:41)
[2020-03-03] MEDS: Z GUARD REMEDY PASTE 57 GM TUBE TOP SCH ×2 (09:22→21:42)
[2020-03-03] MEDS: COD LIVER OIL/ZINC OXIDE OINT 113 GM TUBE TP SCH ×2 (09:22→21:42)
[2020-03-03 19:51] VITALS: BP 104/60
[2020-03-03] MEDS: MIRALAX 17 GM POWD.PACK GT SCH (21:38)
[2020-03-03] MEDS: ATORVASTATIN 10 MG TABLET GT SCH (21:38)
[2020-03-03] MEDS: MULTIVIT, IRON, MIN NO. 8, FA TABLET GT SCH (21:41)
[2020-03-04] MEDS: ALBUTEROL SULFATE 2.5 MG/3 ML NEBU NEB SCH ×6 (02:38→22:35)
[2020-03-04] MEDS: IPRATROPIUM BROMIDE 0.5 MG/2.5 ML NEBU NEB SCH ×6 (02:38→22:35)
[2020-03-04] MEDS: CHOLECALCIFEROL 1,000 UNIT TABLET GT SCH (05:42)
[2020-03-04] MEDS: HYDROGEN PEROXIDE 3% 118 ML BOTTLE TP SCH ×2 (07:18→18:36)
[2020-03-04] MEDS: BUDESONIDE 0.5 MG/2 ML NEBU NEB SCH ×2 (07:18→18:36)
[2020-03-04 08:10] VITALS: BP 119/68
[2020-03-04] MEDS: DOCUSATE SODIUM 100 MG/10 ML LIQUID UDC GT SCH (08:21)
[2020-03-04] MEDS: NUTRISOURCE FIBER 4 GM PACKET GT SCH ×2 (08:22→21:21)
[2020-03-04] MEDS: BACLOFEN 10 MG TABLET GT SCH ×2 (08:22→21:20)
[2020-03-04] MEDS: CALCIUM CARBONATE 500 MG TABLET GT SCH ×2 (08:23→21:22)
[2020-03-04] MEDS: Z GUARD REMEDY PASTE 57 GM TUBE TOP SCH ×2 (08:23→21:23)
[2020-03-04] MEDS: COD LIVER OIL/ZINC OXIDE OINT 113 GM TUBE TP SCH ×2 (08:23→21:23)
[2020-03-04] MEDS: JEVITY 1.2 1000 ML LIQUID GT PRN (11:31)
--- NOTE | 2020-03-04 18:23 | NUR ---
No significant acute changes during this shift. All due medications given as ordered and tolerated well. No s/sx of respiratory distress. Tolerating GT feeding well. Skin care rendered. No new skin condition noted. Safety measures in place. Will endorse to oncoming shift accordingly.
[2020-03-04 20:00] VITALS: BP 109/68
[2020-03-04] MEDS: ATORVASTATIN 10 MG TABLET GT SCH (21:20)
[2020-03-05] MEDS: ALBUTEROL SULFATE 2.5 MG/3 ML NEBU NEB SCH ×6 (02:35→23:05)
[2020-03-05] MEDS: IPRATROPIUM BROMIDE 0.5 MG/2.5 ML NEBU NEB SCH ×6 (02:35→23:05)
[2020-03-05] MEDS: CHOLECALCIFEROL 1,000 UNIT TABLET GT SCH (05:52)
[2020-03-05] MEDS: BUDESONIDE 0.5 MG/2 ML NEBU NEB SCH ×2 (07:08→18:59)
[2020-03-05 08:06] VITALS: BP 124/68
[2020-03-05] MEDS: HYDROGEN PEROXIDE 3% 118 ML BOTTLE TP SCH ×2 (08:08→21:12)
[2020-03-05] MEDS: NUTRISOURCE FIBER 4 GM PACKET GT SCH ×2 (08:18→20:27)
[2020-03-05] MEDS: BACLOFEN 10 MG TABLET GT SCH ×2 (08:18→20:26)
[2020-03-05] MEDS: DOCUSATE SODIUM 100 MG/10 ML LIQUID UDC GT SCH (08:18)
[2020-03-05] MEDS: Z GUARD REMEDY PASTE 57 GM TUBE TOP SCH ×2 (08:19→20:27)
[2020-03-05] MEDS: CALCIUM CARBONATE 500 MG TABLET GT SCH ×2 (08:19→20:27)
[2020-03-05] MEDS: COD LIVER OIL/ZINC OXIDE OINT 113 GM TUBE TP SCH ×2 (08:19→20:27)
--- NOTE | 2020-03-05 08:52 | NUR ---
SEEN BY HALINA GREY N.P. AND WITH NNO.
[2020-03-05 20:14] VITALS: BP 119/51
[2020-03-05] MEDS: ATORVASTATIN 10 MG TABLET GT SCH (20:26)
[2020-03-05] MEDS: MIRALAX 17 GM POWD.PACK GT SCH (20:27)
[2020-03-05] MEDS: MULTIVIT, IRON, MIN NO. 8, FA TABLET GT SCH (20:27)
[2020-03-06] MEDS: JEVITY 1.2 1000 ML LIQUID GT PRN (02:52)
[2020-03-06] MEDS: IPRATROPIUM BROMIDE 0.5 MG/2.5 ML NEBU NEB SCH ×6 (03:02→22:50)
[2020-03-06] MEDS: ALBUTEROL SULFATE 2.5 MG/3 ML NEBU NEB SCH ×6 (03:02→22:50)
[2020-03-06] MEDS: CHOLECALCIFEROL 1,000 UNIT TABLET GT SCH (05:47)
[2020-03-06] MEDS: BUDESONIDE 0.5 MG/2 ML NEBU NEB SCH ×2 (07:05→20:02)
[2020-03-06 07:51] VITALS: BP 103/65
[2020-03-06] MEDS: HYDROGEN PEROXIDE 3% 118 ML BOTTLE TP SCH ×2 (08:09→20:03)
[2020-03-06] MEDS: DOCUSATE SODIUM 100 MG/10 ML LIQUID UDC GT SCH (09:07)
[2020-03-06] MEDS: CALCIUM CARBONATE 500 MG TABLET GT SCH ×2 (09:08→20:23)
[2020-03-06] MEDS: COD LIVER OIL/ZINC OXIDE OINT 113 GM TUBE TP SCH ×2 (09:08→20:23)
[2020-03-06] MEDS: NUTRISOURCE FIBER 4 GM PACKET GT SCH ×2 (09:08→20:22)
[2020-03-06] MEDS: Z GUARD REMEDY PASTE 57 GM TUBE TOP SCH ×2 (09:08→20:23)
[2020-03-06] MEDS: BACLOFEN 10 MG TABLET GT SCH ×2 (09:08→20:22)
[2020-03-06 20:03] VITALS: BP 126/77
[2020-03-06] MEDS: ATORVASTATIN 10 MG TABLET GT SCH (20:22)
[2020-03-07] MEDS: IPRATROPIUM BROMIDE 0.5 MG/2.5 ML NEBU NEB SCH ×6 (02:50→22:50)
[2020-03-07] MEDS: ALBUTEROL SULFATE 2.5 MG/3 ML NEBU NEB SCH ×6 (02:50→22:50)
[2020-03-07] MEDS: CHOLECALCIFEROL 1,000 UNIT TABLET GT SCH (05:31)
[2020-03-07] MEDS: HYDROGEN PEROXIDE 3% 118 ML BOTTLE TP SCH ×2 (07:05→20:16)
[2020-03-07] MEDS: BUDESONIDE 0.5 MG/2 ML NEBU NEB SCH ×2 (07:05→20:16)
[2020-03-07 07:51] VITALS: BP 127/71
[2020-03-07] MEDS: DOCUSATE SODIUM 100 MG/10 ML LIQUID UDC GT SCH (08:05)
[2020-03-07] MEDS: COD LIVER OIL/ZINC OXIDE OINT 113 GM TUBE TP SCH ×2 (08:05→20:01)
[2020-03-07] MEDS: BACLOFEN 10 MG TABLET GT SCH ×2 (08:05→20:00)
[2020-03-07] MEDS: CALCIUM CARBONATE 500 MG TABLET GT SCH ×2 (08:05→20:00)
[2020-03-07] MEDS: NUTRISOURCE FIBER 4 GM PACKET GT SCH ×2 (08:05→20:00)
[2020-03-07] MEDS: Z GUARD REMEDY PASTE 57 GM TUBE TOP SCH ×2 (08:05→20:00)
[2020-03-07] MEDS: MULTIVIT, IRON, MIN NO. 8, FA TABLET GT SCH (20:00)
[2020-03-07] MEDS: ATORVASTATIN 10 MG TABLET GT SCH (20:00)
[2020-03-07 20:27] VITALS: BP 133/82
[2020-03-08] MEDS: IPRATROPIUM BROMIDE 0.5 MG/2.5 ML NEBU NEB SCH ×6 (02:50→22:49)
[2020-03-08] MEDS: ALBUTEROL SULFATE 2.5 MG/3 ML NEBU NEB SCH ×6 (02:50→22:50)
[2020-03-08] MEDS: CHOLECALCIFEROL 1,000 UNIT TABLET GT SCH (05:34)
[2020-03-08] MEDS: BUDESONIDE 0.5 MG/2 ML NEBU NEB SCH ×2 (07:13→20:16)
[2020-03-08 07:23] VITALS: BP 88/56
[2020-03-08] MEDS: DOCUSATE SODIUM 100 MG/10 ML LIQUID UDC GT SCH (08:30)
[2020-03-08] MEDS: NUTRISOURCE FIBER 4 GM PACKET GT SCH ×2 (08:31→21:53)
[2020-03-08] MEDS: BACLOFEN 10 MG TABLET GT SCH ×2 (08:31→21:52)
[2020-03-08] MEDS: CALCIUM CARBONATE 500 MG TABLET GT SCH ×2 (08:32→21:54)
[2020-03-08] MEDS: Z GUARD REMEDY PASTE 57 GM TUBE TOP SCH ×2 (08:32→21:54)
[2020-03-08] MEDS: COD LIVER OIL/ZINC OXIDE OINT 113 GM TUBE TP SCH ×2 (08:32→21:54)
[2020-03-08] MEDS: HYDROGEN PEROXIDE 3% 118 ML BOTTLE TP SCH ×2 (09:02→20:16)
[2020-03-08 20:14] VITALS: BP 96/60
[2020-03-08] MEDS: MIRALAX 17 GM POWD.PACK GT SCH (21:53)
[2020-03-08] MEDS: ATORVASTATIN 10 MG TABLET GT SCH (21:53)
[2020-03-09] MEDS: ALBUTEROL SULFATE 2.5 MG/3 ML NEBU NEB SCH ×6 (02:50→22:42)
[2020-03-09] MEDS: IPRATROPIUM BROMIDE 0.5 MG/2.5 ML NEBU NEB SCH ×6 (02:50→22:42)
[2020-03-09] MEDS: CHOLECALCIFEROL 1,000 UNIT TABLET GT SCH (05:43)
[2020-03-09] MEDS: BUDESONIDE 0.5 MG/2 ML NEBU NEB SCH ×2 (07:00→19:44)
[2020-03-09 07:46] VITALS: BP 108/79
[2020-03-09] MEDS: NUTRISOURCE FIBER 4 GM PACKET GT SCH ×2 (08:01→20:48)
[2020-03-09] MEDS: BACLOFEN 10 MG TABLET GT SCH ×2 (08:01→20:48)
[2020-03-09] MEDS: DOCUSATE SODIUM 100 MG/10 ML LIQUID UDC GT SCH (08:01)
[2020-03-09] MEDS: COD LIVER OIL/ZINC OXIDE OINT 113 GM TUBE TP SCH ×2 (08:01→20:48)
[2020-03-09] MEDS: CALCIUM CARBONATE 500 MG TABLET GT SCH ×2 (08:01→20:48)
[2020-03-09] MEDS: Z GUARD REMEDY PASTE 57 GM TUBE TOP SCH ×2 (08:01→20:48)
[2020-03-09] MEDS: HYDROGEN PEROXIDE 3% 118 ML BOTTLE TP SCH ×2 (09:18→21:00)
[2020-03-09 20:22] VITALS: BP 109/49
[2020-03-09] MEDS: MULTIVIT, IRON, MIN NO. 8, FA TABLET GT SCH (20:48)
[2020-03-09] MEDS: ATORVASTATIN 10 MG TABLET GT SCH (20:48)
[2020-03-10] MEDS: IPRATROPIUM BROMIDE 0.5 MG/2.5 ML NEBU NEB SCH ×6 (02:38→22:40)
[2020-03-10] MEDS: ALBUTEROL SULFATE 2.5 MG/3 ML NEBU NEB SCH ×6 (02:38→22:40)
[2020-03-10] MEDS: CHOLECALCIFEROL 1,000 UNIT TABLET GT SCH (05:46)
[2020-03-10] MEDS: BUDESONIDE 0.5 MG/2 ML NEBU NEB SCH ×2 (07:31→19:42)
[2020-03-10 07:34] VITALS: BP 109/73
[2020-03-10] MEDS: BACLOFEN 10 MG TABLET GT SCH ×2 (08:41→20:40)
[2020-03-10] MEDS: NUTRISOURCE FIBER 4 GM PACKET GT SCH ×2 (08:41→20:40)
[2020-03-10] MEDS: DOCUSATE SODIUM 100 MG/10 ML LIQUID UDC GT SCH (08:41)
[2020-03-10] MEDS: Z GUARD REMEDY PASTE 57 GM TUBE TOP SCH ×2 (08:47→20:40)
[2020-03-10] MEDS: CALCIUM CARBONATE 500 MG TABLET GT SCH ×2 (08:47→20:40)
[2020-03-10] MEDS: COD LIVER OIL/ZINC OXIDE OINT 113 GM TUBE TP SCH ×2 (08:47→20:40)
[2020-03-10] MEDS: HYDROGEN PEROXIDE 3% 118 ML BOTTLE TP SCH ×2 (09:00→21:51)
[2020-03-10 19:46] VITALS: BP 103/63
[2020-03-10] MEDS: MIRALAX 17 GM POWD.PACK GT SCH (20:40)
[2020-03-10] MEDS: ATORVASTATIN 10 MG TABLET GT SCH (20:40)
[2020-03-11] MEDS: ALBUTEROL SULFATE 2.5 MG/3 ML NEBU NEB SCH ×6 (03:20→23:38)
[2020-03-11] MEDS: IPRATROPIUM BROMIDE 0.5 MG/2.5 ML NEBU NEB SCH ×6 (03:20→23:38)
[2020-03-11] MEDS: JEVITY 1.2 1000 ML LIQUID GT PRN (05:26)
[2020-03-11] MEDS: CHOLECALCIFEROL 1,000 UNIT TABLET GT SCH (05:35)
[2020-03-11] MEDS: HYDROGEN PEROXIDE 3% 118 ML BOTTLE TP SCH ×2 (07:04→21:05)
[2020-03-11] MEDS: BUDESONIDE 0.5 MG/2 ML NEBU NEB SCH ×2 (07:04→19:18)
[2020-03-11 08:00] VITALS: BP 117/75
[2020-03-11] MEDS: NUTRISOURCE FIBER 4 GM PACKET GT SCH ×2 (08:00→21:43)
[2020-03-11] MEDS: Z GUARD REMEDY PASTE 57 GM TUBE TOP SCH ×2 (08:00→21:44)
[2020-03-11] MEDS: BACLOFEN 10 MG TABLET GT SCH ×2 (08:00→21:43)
[2020-03-11] MEDS: DOCUSATE SODIUM 100 MG/10 ML LIQUID UDC GT SCH (08:00)
[2020-03-11] MEDS: COD LIVER OIL/ZINC OXIDE OINT 113 GM TUBE TP SCH ×2 (08:00→21:44)
[2020-03-11] MEDS: CALCIUM CARBONATE 500 MG TABLET GT SCH ×2 (08:00→21:43)
[2020-03-11 20:00] VITALS: BP 117/81
[2020-03-11] MEDS: ATORVASTATIN 10 MG TABLET GT SCH (21:43)
[2020-03-11] MEDS: MULTIVIT, IRON, MIN NO. 8, FA TABLET GT SCH (21:44)
--- NOTE | 2020-03-12 02:00 | NUR ---
New order for COVID-19 test per [facility] COVID-19 requirement.
[2020-03-12] MEDS: IPRATROPIUM BROMIDE 0.5 MG/2.5 ML NEBU NEB SCH ×6 (03:47→23:02)
[2020-03-12] MEDS: ALBUTEROL SULFATE 2.5 MG/3 ML NEBU NEB SCH ×6 (03:47→23:02)
[2020-03-12] MEDS: CHOLECALCIFEROL 1,000 UNIT TABLET GT SCH (06:35)
[2020-03-12] MEDS: BUDESONIDE 0.5 MG/2 ML NEBU NEB SCH ×2 (07:04→18:55)
[2020-03-12] MEDS: HYDROGEN PEROXIDE 3% 118 ML BOTTLE TP SCH ×2 (07:05→21:01)
[2020-03-12 07:35] VITALS: BP 102/46
[2020-03-12] MEDS: DOCUSATE SODIUM 100 MG/10 ML LIQUID UDC GT SCH (08:04)
[2020-03-12] MEDS: COD LIVER OIL/ZINC OXIDE OINT 113 GM TUBE TP SCH ×2 (08:05→21:40)
[2020-03-12] MEDS: Z GUARD REMEDY PASTE 57 GM TUBE TOP SCH ×2 (08:05→21:40)
[2020-03-12] MEDS: NUTRISOURCE FIBER 4 GM PACKET GT SCH ×2 (08:05→21:39)
[2020-03-12] MEDS: CALCIUM CARBONATE 500 MG TABLET GT SCH ×2 (08:05→21:40)
[2020-03-12] MEDS: BACLOFEN 10 MG TABLET GT SCH ×2 (08:05→21:37)
--- NOTE | 2020-03-12 11:47 | NUR ---
Left message for Dione to call back [facility] in order to inform her of of COVID 19 possible exposure and testing plan.
--- NOTE | 2020-03-12 13:24 | NUR ---
Informed family member Dione, of COVID 19 possible exposure and testing plan with good understanding.
[2020-03-12 19:42] VITALS: BP 104/57
[2020-03-12] MEDS: ATORVASTATIN 10 MG TABLET GT SCH (21:38)
[2020-03-12] MEDS: MIRALAX 17 GM POWD.PACK GT SCH (21:38)
[2020-03-13] MEDS: IPRATROPIUM BROMIDE 0.5 MG/2.5 ML NEBU NEB SCH ×6 (03:00→22:50)
[2020-03-13] MEDS: ALBUTEROL SULFATE 2.5 MG/3 ML NEBU NEB SCH ×6 (03:00→22:50)
[2020-03-13] MEDS: CHOLECALCIFEROL 1,000 UNIT TABLET GT SCH (05:57)
[2020-03-13] MEDS: BUDESONIDE 0.5 MG/2 ML NEBU NEB SCH ×2 (07:00→20:00)
[2020-03-13 07:35] VITALS: BP 124/82
[2020-03-13] MEDS: BACLOFEN 10 MG TABLET GT SCH ×2 (08:14→21:42)
[2020-03-13] MEDS: DOCUSATE SODIUM 100 MG/10 ML LIQUID UDC GT SCH (08:14)
[2020-03-13] MEDS: COD LIVER OIL/ZINC OXIDE OINT 113 GM TUBE TP SCH ×2 (08:14→21:44)
[2020-03-13] MEDS: NUTRISOURCE FIBER 4 GM PACKET GT SCH ×2 (08:14→21:43)
[2020-03-13] MEDS: CALCIUM CARBONATE 500 MG TABLET GT SCH ×2 (08:14→21:43)
[2020-03-13] MEDS: Z GUARD REMEDY PASTE 57 GM TUBE TOP SCH ×2 (08:14→21:44)
[2020-03-13] MEDS: HYDROGEN PEROXIDE 3% 118 ML BOTTLE TP SCH ×2 (09:00→20:00)
[2020-03-13 19:54] VITALS: BP 121/67
[2020-03-13] MEDS: ATORVASTATIN 10 MG TABLET GT SCH (21:43)
[2020-03-13] MEDS: MULTIVIT, IRON, MIN NO. 8, FA TABLET GT SCH (21:44)
[2020-03-14] MEDS: IPRATROPIUM BROMIDE 0.5 MG/2.5 ML NEBU NEB SCH ×6 (02:50→18:41)
[2020-03-14] MEDS: ALBUTEROL SULFATE 2.5 MG/3 ML NEBU NEB SCH ×6 (02:50→18:41)
[2020-03-14] MEDS: CHOLECALCIFEROL 1,000 UNIT TABLET GT SCH (05:38)
[2020-03-14] MEDS: BUDESONIDE 0.5 MG/2 ML NEBU NEB SCH ×3 (07:11→18:41)
[2020-03-14 07:53] VITALS: BP 115/78
[2020-03-14] MEDS: HYDROGEN PEROXIDE 3% 118 ML BOTTLE TP SCH ×3 (08:30→18:41)
[2020-03-14] MEDS: NUTRISOURCE FIBER 4 GM PACKET GT SCH ×2 (09:04→21:37)
[2020-03-14] MEDS: DOCUSATE SODIUM 100 MG/10 ML LIQUID UDC GT SCH (09:04)
[2020-03-14] MEDS: BACLOFEN 10 MG TABLET GT SCH ×2 (09:04→21:37)
[2020-03-14] MEDS: COD LIVER OIL/ZINC OXIDE OINT 113 GM TUBE TP SCH (09:05)
[2020-03-14] MEDS: CALCIUM CARBONATE 500 MG TABLET GT SCH ×2 (09:05→21:37)
[2020-03-14] MEDS: Z GUARD REMEDY PASTE 57 GM TUBE TOP SCH ×2 (09:05→21:38)
[2020-03-14 20:34] VITALS: BP 98/67
[2020-03-14] MEDS: ATORVASTATIN 10 MG TABLET GT SCH (21:37)
[2020-03-15] MEDS: IPRATROPIUM BROMIDE 0.5 MG/2.5 ML NEBU NEB SCH ×6 (04:21→22:52)
[2020-03-15] MEDS: ALBUTEROL SULFATE 2.5 MG/3 ML NEBU NEB SCH ×6 (04:21→22:52)
[2020-03-15] MEDS: JEVITY 1.2 1000 ML LIQUID GT PRN (05:00)
[2020-03-15] MEDS: CHOLECALCIFEROL 1,000 UNIT TABLET GT SCH (06:08)
[2020-03-15 07:30] VITALS: BP 132/84
[2020-03-15] MEDS: NUTRISOURCE FIBER 4 GM PACKET GT SCH ×2 (08:09→20:38)
[2020-03-15] MEDS: DOCUSATE SODIUM 100 MG/10 ML LIQUID UDC GT SCH (08:09)
[2020-03-15] MEDS: BACLOFEN 10 MG TABLET GT SCH ×2 (08:09→20:38)
[2020-03-15] MEDS: CALCIUM CARBONATE 500 MG TABLET GT SCH ×2 (08:09→20:38)
[2020-03-15] MEDS: Z GUARD REMEDY PASTE 57 GM TUBE TOP SCH ×2 (08:11→20:38)
[2020-03-15] MEDS: HYDROGEN PEROXIDE 3% 118 ML BOTTLE TP SCH ×2 (09:28→20:04)
[2020-03-15] MEDS: BUDESONIDE 0.5 MG/2 ML NEBU NEB SCH ×2 (09:28→20:03)
[2020-03-15 20:03] VITALS: BP 121/73
[2020-03-15] MEDS: MULTIVIT, IRON, MIN NO. 8, FA TABLET GT SCH (20:38)
[2020-03-15] MEDS: ATORVASTATIN 10 MG TABLET GT SCH (20:38)
[2020-03-15] MEDS: MIRALAX 17 GM POWD.PACK GT SCH (20:38)
[2020-03-16] MEDS: IPRATROPIUM BROMIDE 0.5 MG/2.5 ML NEBU NEB SCH ×6 (02:50→22:50)
[2020-03-16] MEDS: ALBUTEROL SULFATE 2.5 MG/3 ML NEBU NEB SCH ×6 (02:50→22:50)
[2020-03-16] MEDS: JEVITY 1.2 1000 ML LIQUID GT PRN (05:00)
[2020-03-16] MEDS: CHOLECALCIFEROL 1,000 UNIT TABLET GT SCH (06:52)
[2020-03-16] MEDS: HYDROGEN PEROXIDE 3% 118 ML BOTTLE TP SCH ×2 (07:18→21:23)
[2020-03-16] MEDS: BUDESONIDE 0.5 MG/2 ML NEBU NEB SCH ×2 (07:18→19:53)
[2020-03-16 07:29] VITALS: BP 86/40
[2020-03-16] MEDS: Z GUARD REMEDY PASTE 57 GM TUBE TOP SCH ×2 (08:24→21:36)
[2020-03-16] MEDS: NUTRISOURCE FIBER 4 GM PACKET GT SCH ×2 (08:24→21:35)
[2020-03-16] MEDS: CALCIUM CARBONATE 500 MG TABLET GT SCH ×2 (08:24→21:35)
[2020-03-16] MEDS: DOCUSATE SODIUM 100 MG/10 ML LIQUID UDC GT SCH (08:24)
[2020-03-16] MEDS: BACLOFEN 10 MG TABLET GT SCH ×2 (08:24→21:34)
[2020-03-16 20:00] VITALS: BP 108/75
[2020-03-16] MEDS: ATORVASTATIN 10 MG TABLET GT SCH (21:35)
[2020-03-17] MEDS: ALBUTEROL SULFATE 2.5 MG/3 ML NEBU NEB SCH ×6 (02:51→22:30)
[2020-03-17] MEDS: IPRATROPIUM BROMIDE 0.5 MG/2.5 ML NEBU NEB SCH ×6 (02:51→22:30)
[2020-03-17] MEDS: CHOLECALCIFEROL 1,000 UNIT TABLET GT SCH (06:10)
[2020-03-17] MEDS: BUDESONIDE 0.5 MG/2 ML NEBU NEB SCH ×2 (07:11→18:39)
[2020-03-17 07:28] VITALS: BP 157/76
[2020-03-17] MEDS: BACLOFEN 10 MG TABLET GT SCH ×2 (08:28→21:27)
[2020-03-17] MEDS: DOCUSATE SODIUM 100 MG/10 ML LIQUID UDC GT SCH (08:28)
[2020-03-17] MEDS: Z GUARD REMEDY PASTE 57 GM TUBE TOP SCH ×2 (08:28→21:50)
[2020-03-17] MEDS: NUTRISOURCE FIBER 4 GM PACKET GT SCH ×2 (08:28→21:28)
[2020-03-17] MEDS: HYDROGEN PEROXIDE 3% 118 ML BOTTLE TP SCH ×2 (08:30→18:40)
[2020-03-17] MEDS: CALCIUM CARBONATE 500 MG TABLET GT SCH ×2 (09:23→21:42)
--- NOTE | 2020-03-17 15:51 | NUR ---
New order for COVID-19 test per [facility] COVID-19 requirement.
[2020-03-17 20:00] VITALS: BP 102/59
--- NOTE | 2020-03-17 20:45 | NUR ---
daniel cameron n.p. was in,no new orders.
[2020-03-17] MEDS: ATORVASTATIN 10 MG TABLET GT SCH (21:27)
[2020-03-17] MEDS: MIRALAX 17 GM POWD.PACK GT SCH (21:27)
[2020-03-17] MEDS: MULTIVIT, IRON, MIN NO. 8, FA TABLET GT SCH (21:43)
[2020-03-18] MEDS: CHOLECALCIFEROL 1,000 UNIT TABLET GT SCH (05:36)
[2020-03-18] MEDS: IPRATROPIUM BROMIDE 0.5 MG/2.5 ML NEBU NEB SCH ×6 (07:12→23:04)
[2020-03-18] MEDS: ALBUTEROL SULFATE 2.5 MG/3 ML NEBU NEB SCH ×6 (07:12→23:04)
[2020-03-18] MEDS: BUDESONIDE 0.5 MG/2 ML NEBU NEB SCH ×2 (07:12→18:51)
[2020-03-18 07:42] VITALS: BP 97/59
[2020-03-18] MEDS: DOCUSATE SODIUM 100 MG/10 ML LIQUID UDC GT SCH (08:41)
[2020-03-18] MEDS: NUTRISOURCE FIBER 4 GM PACKET GT SCH ×2 (08:42→21:19)
[2020-03-18] MEDS: BACLOFEN 10 MG TABLET GT SCH ×2 (08:42→21:18)
[2020-03-18] MEDS: CALCIUM CARBONATE 500 MG TABLET GT SCH ×2 (08:42→21:19)
[2020-03-18] MEDS: Z GUARD REMEDY PASTE 57 GM TUBE TOP SCH ×2 (08:42→21:20)
[2020-03-18] MEDS: HYDROGEN PEROXIDE 3% 118 ML BOTTLE TP SCH ×2 (09:14→20:30)
--- NOTE | 2020-03-18 18:46 | NUR ---
MESSAGE LEFT TO ALEXA STOVER RESP. DEMOCRAT RE :COVID 19 TESTING AND TO RETURN CALL IF ANY QUESTION.
[2020-03-18 20:00] VITALS: BP 109/74
[2020-03-18] MEDS: ATORVASTATIN 10 MG TABLET GT SCH (21:18)
[2020-03-19] MEDS: ALBUTEROL SULFATE 2.5 MG/3 ML NEBU NEB SCH ×6 (02:55→22:57)
[2020-03-19] MEDS: IPRATROPIUM BROMIDE 0.5 MG/2.5 ML NEBU NEB SCH ×6 (02:55→22:57)
[2020-03-19] MEDS: CHOLECALCIFEROL 1,000 UNIT TABLET GT SCH (05:36)
[2020-03-19] MEDS: BUDESONIDE 0.5 MG/2 ML NEBU NEB SCH ×2 (07:28→18:52)
[2020-03-19 07:52] VITALS: BP 114/78
[2020-03-19] MEDS: HYDROGEN PEROXIDE 3% 118 ML BOTTLE TP SCH ×2 (08:40→20:57)
[2020-03-19] MEDS: BACLOFEN 10 MG TABLET GT SCH ×2 (08:56→20:00)
[2020-03-19] MEDS: NUTRISOURCE FIBER 4 GM PACKET GT SCH ×2 (08:56→20:00)
[2020-03-19] MEDS: DOCUSATE SODIUM 100 MG/10 ML LIQUID UDC GT SCH (08:56)
[2020-03-19] MEDS: Z GUARD REMEDY PASTE 57 GM TUBE TOP SCH ×2 (08:57→20:00)
[2020-03-19] MEDS: CALCIUM CARBONATE 500 MG TABLET GT SCH ×2 (08:57→20:00)
[2020-03-19 20:00] VITALS: BP 104/72
[2020-03-19] MEDS: MULTIVIT, IRON, MIN NO. 8, FA TABLET GT SCH (20:00)
[2020-03-19] MEDS: ATORVASTATIN 10 MG TABLET GT SCH (20:00)
[2020-03-19] MEDS: MIRALAX 17 GM POWD.PACK GT SCH (20:00)
[2020-03-20] MEDS: IPRATROPIUM BROMIDE 0.5 MG/2.5 ML NEBU NEB SCH ×6 (02:53→22:41)
[2020-03-20] MEDS: ALBUTEROL SULFATE 2.5 MG/3 ML NEBU NEB SCH ×6 (02:53→22:41)
[2020-03-20] MEDS: CHOLECALCIFEROL 1,000 UNIT TABLET GT SCH (05:33)
[2020-03-20] MEDS: BUDESONIDE 0.5 MG/2 ML NEBU NEB SCH ×2 (07:17→19:50)
[2020-03-20 07:31] VITALS: BP 111/62
[2020-03-20 08:00] VITALS: BP 108/74
[2020-03-20] MEDS: HYDROGEN PEROXIDE 3% 118 ML BOTTLE TP SCH ×2 (08:47→21:12)
[2020-03-20] MEDS: BACLOFEN 10 MG TABLET GT SCH ×2 (09:00→20:24)
[2020-03-20] MEDS: CALCIUM CARBONATE 500 MG TABLET GT SCH ×2 (09:00→20:24)
[2020-03-20] MEDS: Z GUARD REMEDY PASTE 57 GM TUBE TOP SCH ×2 (09:00→20:24)
[2020-03-20] MEDS: NUTRISOURCE FIBER 4 GM PACKET GT SCH ×2 (09:00→20:24)
[2020-03-20] MEDS: DOCUSATE SODIUM 100 MG/10 ML LIQUID UDC GT SCH (09:00)
[2020-03-20] MEDS: ATORVASTATIN 10 MG TABLET GT SCH (20:24)
[2020-03-21] MEDS: IPRATROPIUM BROMIDE 0.5 MG/2.5 ML NEBU NEB SCH ×6 (02:46→22:40)
[2020-03-21] MEDS: ALBUTEROL SULFATE 2.5 MG/3 ML NEBU NEB SCH ×6 (02:46→22:40)
[2020-03-21] MEDS: CHOLECALCIFEROL 1,000 UNIT TABLET GT SCH (05:55)
[2020-03-21] MEDS: BUDESONIDE 0.5 MG/2 ML NEBU NEB SCH ×2 (07:19→19:55)
[2020-03-21 07:42] VITALS: BP 136/85
[2020-03-21] MEDS: HYDROGEN PEROXIDE 3% 118 ML BOTTLE TP SCH ×2 (09:00→21:15)
[2020-03-21] MEDS: DOCUSATE SODIUM 100 MG/10 ML LIQUID UDC GT SCH (09:05)
[2020-03-21] MEDS: BACLOFEN 10 MG TABLET GT SCH ×2 (09:05→20:03)
[2020-03-21] MEDS: NUTRISOURCE FIBER 4 GM PACKET GT SCH ×2 (09:05→20:03)
[2020-03-21] MEDS: CALCIUM CARBONATE 500 MG TABLET GT SCH ×2 (09:05→20:03)
[2020-03-21] MEDS: Z GUARD REMEDY PASTE 57 GM TUBE TOP SCH ×2 (09:05→20:04)
--- NOTE | 2020-03-21 11:20 | NUR ---
COVID 19 NEGATIVE.
--- NOTE | 2020-03-21 16:21 | NUR ---
PT'S RESP.LIBERTARIAN AND SISTER IS AWARE PT. IS NEGATIVE FOR COVID 19.
[2020-03-21 19:46] VITALS: BP 129/80
[2020-03-21] MEDS: MULTIVIT, IRON, MIN NO. 8, FA TABLET GT SCH (20:03)
[2020-03-21] MEDS: ATORVASTATIN 10 MG TABLET GT SCH (20:03)
[2020-03-22] MEDS: IPRATROPIUM BROMIDE 0.5 MG/2.5 ML NEBU NEB SCH ×6 (02:46→22:40)
[2020-03-22] MEDS: ALBUTEROL SULFATE 2.5 MG/3 ML NEBU NEB SCH ×6 (02:46→22:40)
[2020-03-22] MEDS: CHOLECALCIFEROL 1,000 UNIT TABLET GT SCH (05:30)
[2020-03-22] MEDS: JEVITY 1.2 1000 ML LIQUID GT PRN (05:31)
[2020-03-22] MEDS: BUDESONIDE 0.5 MG/2 ML NEBU NEB SCH ×2 (07:06→19:50)
[2020-03-22 07:31] VITALS: BP 111/71
[2020-03-22] MEDS: BACLOFEN 10 MG TABLET GT SCH ×2 (08:34→20:46)
[2020-03-22] MEDS: DOCUSATE SODIUM 100 MG/10 ML LIQUID UDC GT SCH (08:34)
[2020-03-22] MEDS: HYDROGEN PEROXIDE 3% 118 ML BOTTLE TP SCH ×2 (08:35→21:34)
[2020-03-22] MEDS: CALCIUM CARBONATE 500 MG TABLET GT SCH ×2 (08:36→20:46)
[2020-03-22] MEDS: NUTRISOURCE FIBER 4 GM PACKET GT SCH ×2 (08:36→20:46)
[2020-03-22] MEDS: Z GUARD REMEDY PASTE 57 GM TUBE TOP SCH ×2 (08:37→20:46)
--- NOTE | 2020-03-22 09:30 | NUR ---
SEEN BY DR. REAVES AND WITH NNO.
[2020-03-22 20:42] VITALS: BP 116/65
[2020-03-22] MEDS: MIRALAX 17 GM POWD.PACK GT SCH (20:46)
[2020-03-22] MEDS: ATORVASTATIN 10 MG TABLET GT SCH (20:46)
[2020-03-23] MEDS: ALBUTEROL SULFATE 2.5 MG/3 ML NEBU NEB SCH ×6 (02:41→22:52)
[2020-03-23] MEDS: IPRATROPIUM BROMIDE 0.5 MG/2.5 ML NEBU NEB SCH ×6 (02:41→22:52)
[2020-03-23] MEDS: CHOLECALCIFEROL 1,000 UNIT TABLET GT SCH (05:47)
[2020-03-23] MEDS: BUDESONIDE 0.5 MG/2 ML NEBU NEB SCH ×2 (07:11→18:49)
[2020-03-23 07:42] VITALS: BP 101/66
[2020-03-23] MEDS: DOCUSATE SODIUM 100 MG/10 ML LIQUID UDC GT SCH (09:05)
[2020-03-23] MEDS: HYDROGEN PEROXIDE 3% 118 ML BOTTLE TP SCH ×2 (09:05→20:35)
[2020-03-23] MEDS: NUTRISOURCE FIBER 4 GM PACKET GT SCH ×2 (09:06→20:10)
[2020-03-23] MEDS: BACLOFEN 10 MG TABLET GT SCH ×2 (09:06→20:10)
[2020-03-23] MEDS: CALCIUM CARBONATE 500 MG TABLET GT SCH ×2 (09:07→20:10)
[2020-03-23] MEDS: Z GUARD REMEDY PASTE 57 GM TUBE TOP SCH ×2 (09:07→20:10)
[2020-03-23] MEDS: JEVITY 1.2 1000 ML LIQUID GT PRN (11:41)
[2020-03-23 19:57] VITALS: BP 101/71
[2020-03-23] MEDS: ATORVASTATIN 10 MG TABLET GT SCH (20:10)
[2020-03-23] MEDS: MULTIVIT, IRON, MIN NO. 8, FA TABLET GT SCH (20:10)
[2020-03-24] MEDS: IPRATROPIUM BROMIDE 0.5 MG/2.5 ML NEBU NEB SCH ×6 (02:48→22:56)
[2020-03-24] MEDS: ALBUTEROL SULFATE 2.5 MG/3 ML NEBU NEB SCH ×6 (02:48→22:56)
[2020-03-24] MEDS: CHOLECALCIFEROL 1,000 UNIT TABLET GT SCH (05:47)
[2020-03-24] MEDS: BUDESONIDE 0.5 MG/2 ML NEBU NEB SCH ×2 (07:22→18:56)
[2020-03-24 07:43] VITALS: BP 110/62
[2020-03-24] MEDS: CALCIUM CARBONATE 500 MG TABLET GT SCH ×2 (08:14→20:26)
[2020-03-24] MEDS: Z GUARD REMEDY PASTE 57 GM TUBE TOP SCH ×2 (08:14→20:27)
[2020-03-24] MEDS: BACLOFEN 10 MG TABLET GT SCH ×2 (08:14→20:26)
[2020-03-24] MEDS: NUTRISOURCE FIBER 4 GM PACKET GT SCH ×2 (08:14→20:26)
[2020-03-24] MEDS: DOCUSATE SODIUM 100 MG/10 ML LIQUID UDC GT SCH (08:14)
[2020-03-24] MEDS: HYDROGEN PEROXIDE 3% 118 ML BOTTLE TP SCH ×2 (08:21→20:58)
[2020-03-24] MEDS: JEVITY 1.2 1000 ML LIQUID GT PRN (12:44)
[2020-03-24 20:02] VITALS: BP 103/64
[2020-03-24] MEDS: MIRALAX 17 GM POWD.PACK GT SCH (20:26)
[2020-03-24] MEDS: ATORVASTATIN 10 MG TABLET GT SCH (20:26)
[2020-03-25] MEDS: IPRATROPIUM BROMIDE 0.5 MG/2.5 ML NEBU NEB SCH ×6 (02:53→23:21)
[2020-03-25] MEDS: ALBUTEROL SULFATE 2.5 MG/3 ML NEBU NEB SCH ×6 (02:53→23:21)
[2020-03-25] MEDS: CHOLECALCIFEROL 1,000 UNIT TABLET GT SCH (06:04)
[2020-03-25 07:30] VITALS: BP 110/64
[2020-03-25] MEDS: BUDESONIDE 0.5 MG/2 ML NEBU NEB SCH ×2 (07:32→20:09)
[2020-03-25] MEDS: BACLOFEN 10 MG TABLET GT SCH ×2 (08:20→20:39)
[2020-03-25] MEDS: DOCUSATE SODIUM 100 MG/10 ML LIQUID UDC GT SCH (08:20)
[2020-03-25] MEDS: NUTRISOURCE FIBER 4 GM PACKET GT SCH ×2 (08:21→20:39)
[2020-03-25] MEDS: CALCIUM CARBONATE 500 MG TABLET GT SCH ×2 (08:21→20:39)
[2020-03-25] MEDS: Z GUARD REMEDY PASTE 57 GM TUBE TOP SCH ×2 (08:21→20:39)
[2020-03-25] MEDS: HYDROGEN PEROXIDE 3% 118 ML BOTTLE TP SCH ×2 (09:00→21:25)
[2020-03-25] MEDS: ATORVASTATIN 10 MG TABLET GT SCH (20:39)
[2020-03-25] MEDS: MULTIVIT, IRON, MIN NO. 8, FA TABLET GT SCH (20:39)
[2020-03-25 21:00] VITALS: BP 100/55
[2020-03-26] MEDS: ALBUTEROL SULFATE 2.5 MG/3 ML NEBU NEB SCH ×6 (02:59→22:55)
[2020-03-26] MEDS: IPRATROPIUM BROMIDE 0.5 MG/2.5 ML NEBU NEB SCH ×6 (02:59→22:55)
[2020-03-26] MEDS: CHOLECALCIFEROL 1,000 UNIT TABLET GT SCH (05:54)
[2020-03-26] MEDS: BUDESONIDE 0.5 MG/2 ML NEBU NEB SCH ×2 (07:05→18:52)
[2020-03-26 07:43] VITALS: BP 115/71
[2020-03-26] MEDS: DOCUSATE SODIUM 100 MG/10 ML LIQUID UDC GT SCH (08:22)
[2020-03-26] MEDS: BACLOFEN 10 MG TABLET GT SCH ×2 (08:23→20:54)
[2020-03-26] MEDS: CALCIUM CARBONATE 500 MG TABLET GT SCH ×2 (08:23→20:54)
[2020-03-26] MEDS: NUTRISOURCE FIBER 4 GM PACKET GT SCH ×2 (08:23→20:54)
[2020-03-26] MEDS: Z GUARD REMEDY PASTE 57 GM TUBE TOP SCH ×2 (08:23→20:54)
[2020-03-26] MEDS: HYDROGEN PEROXIDE 3% 118 ML BOTTLE TP SCH ×2 (09:19→20:57)
[2020-03-26] MEDS: JEVITY 1.2 1000 ML LIQUID GT PRN (16:31)
--- NOTE | 2020-03-26 16:56 | NUR ---
Sister Dione was informed result for covid19 test was negative.
[2020-03-26 20:07] VITALS: BP 110/55
[2020-03-26] MEDS: MIRALAX 17 GM POWD.PACK GT SCH (20:54)
[2020-03-26] MEDS: ATORVASTATIN 10 MG TABLET GT SCH (20:54)
[2020-03-27] MEDS: ALBUTEROL SULFATE 2.5 MG/3 ML NEBU NEB SCH ×6 (02:58→22:50)
[2020-03-27] MEDS: IPRATROPIUM BROMIDE 0.5 MG/2.5 ML NEBU NEB SCH ×6 (02:58→22:50)
[2020-03-27] MEDS: CHOLECALCIFEROL 1,000 UNIT TABLET GT SCH (05:46)
[2020-03-27] MEDS: BUDESONIDE 0.5 MG/2 ML NEBU NEB SCH ×2 (07:13→20:05)
[2020-03-27 07:42] VITALS: BP 107/67
[2020-03-27] MEDS: CALCIUM CARBONATE 500 MG TABLET GT SCH ×2 (08:23→21:01)
[2020-03-27] MEDS: Z GUARD REMEDY PASTE 57 GM TUBE TOP SCH ×2 (08:23→21:01)
[2020-03-27] MEDS: DOCUSATE SODIUM 100 MG/10 ML LIQUID UDC GT SCH (08:23)
[2020-03-27] MEDS: NUTRISOURCE FIBER 4 GM PACKET GT SCH ×2 (08:23→21:01)
[2020-03-27] MEDS: BACLOFEN 10 MG TABLET GT SCH ×2 (08:23→21:01)
[2020-03-27] MEDS: HYDROGEN PEROXIDE 3% 118 ML BOTTLE TP SCH ×2 (08:40→20:05)
[2020-03-27] MEDS: JEVITY 1.2 1000 ML LIQUID GT PRN (17:43)
[2020-03-27 20:06] VITALS: BP 115/52
[2020-03-27] MEDS: MULTIVIT, IRON, MIN NO. 8, FA TABLET GT SCH (21:01)
[2020-03-27] MEDS: ATORVASTATIN 10 MG TABLET GT SCH (21:01)
[2020-03-28] MEDS: IPRATROPIUM BROMIDE 0.5 MG/2.5 ML NEBU NEB SCH ×6 (02:50→22:50)
[2020-03-28] MEDS: ALBUTEROL SULFATE 2.5 MG/3 ML NEBU NEB SCH ×6 (02:50→22:50)
[2020-03-28] MEDS: CHOLECALCIFEROL 1,000 UNIT TABLET GT SCH (05:34)
[2020-03-28] MEDS: BUDESONIDE 0.5 MG/2 ML NEBU NEB SCH ×2 (07:28→20:02)
[2020-03-28 07:48] VITALS: BP 125/74
[2020-03-28] MEDS: CALCIUM CARBONATE 500 MG TABLET GT SCH ×2 (08:15→21:00)
[2020-03-28] MEDS: DOCUSATE SODIUM 100 MG/10 ML LIQUID UDC GT SCH (08:15)
[2020-03-28] MEDS: BACLOFEN 10 MG TABLET GT SCH ×2 (08:15→21:00)
[2020-03-28] MEDS: NUTRISOURCE FIBER 4 GM PACKET GT SCH ×2 (08:15→21:00)
[2020-03-28] MEDS: Z GUARD REMEDY PASTE 57 GM TUBE TOP SCH ×2 (08:16→21:00)
[2020-03-28] MEDS: HYDROGEN PEROXIDE 3% 118 ML BOTTLE TP SCH ×2 (09:00→20:02)
[2020-03-28] MEDS: JEVITY 1.2 1000 ML LIQUID GT PRN (15:59)
[2020-03-28 20:00] VITALS: BP 114/63
[2020-03-28] MEDS: ATORVASTATIN 10 MG TABLET GT SCH (21:00)
[2020-03-29] MEDS: IPRATROPIUM BROMIDE 0.5 MG/2.5 ML NEBU NEB SCH ×6 (02:50→23:10)
[2020-03-29] MEDS: ALBUTEROL SULFATE 2.5 MG/3 ML NEBU NEB SCH ×6 (02:50→23:10)
[2020-03-29] MEDS: CHOLECALCIFEROL 1,000 UNIT TABLET GT SCH (05:31)
[2020-03-29] MEDS: BUDESONIDE 0.5 MG/2 ML NEBU NEB SCH ×2 (07:00→20:00)
[2020-03-29 07:15] VITALS: BP 85/52
[2020-03-29] MEDS: HYDROGEN PEROXIDE 3% 118 ML BOTTLE TP SCH ×2 (08:17→21:37)
[2020-03-29] MEDS: DOCUSATE SODIUM 100 MG/10 ML LIQUID UDC GT SCH (08:56)
[2020-03-29] MEDS: BACLOFEN 10 MG TABLET GT SCH ×2 (08:56→20:42)
[2020-03-29] MEDS: NUTRISOURCE FIBER 4 GM PACKET GT SCH ×2 (08:57→20:42)
[2020-03-29] MEDS: Z GUARD REMEDY PASTE 57 GM TUBE TOP SCH ×2 (08:57→20:42)
[2020-03-29] MEDS: CALCIUM CARBONATE 500 MG TABLET GT SCH ×2 (08:57→20:42)
[2020-03-29 20:01] VITALS: BP 131/87
[2020-03-29] MEDS: MIRALAX 17 GM POWD.PACK GT SCH (20:42)
[2020-03-29] MEDS: ATORVASTATIN 10 MG TABLET GT SCH (20:42)
[2020-03-29] MEDS: MULTIVIT, IRON, MIN NO. 8, FA TABLET GT SCH (20:42)
[2020-03-30] MEDS: ALBUTEROL SULFATE 2.5 MG/3 ML NEBU NEB SCH ×6 (02:40→22:22)
[2020-03-30] MEDS: IPRATROPIUM BROMIDE 0.5 MG/2.5 ML NEBU NEB SCH ×6 (02:40→22:22)
[2020-03-30] MEDS: CHOLECALCIFEROL 1,000 UNIT TABLET GT SCH (05:30)
[2020-03-30] MEDS: BUDESONIDE 0.5 MG/2 ML NEBU NEB SCH ×2 (07:05→18:51)
[2020-03-30 07:33] VITALS: BP 114/70
[2020-03-30] MEDS: BACLOFEN 10 MG TABLET GT SCH ×2 (08:03→21:33)
[2020-03-30] MEDS: CALCIUM CARBONATE 500 MG TABLET GT SCH ×2 (08:03→21:34)
[2020-03-30] MEDS: NUTRISOURCE FIBER 4 GM PACKET GT SCH ×2 (08:03→21:34)
[2020-03-30] MEDS: Z GUARD REMEDY PASTE 57 GM TUBE TOP SCH ×2 (08:03→21:34)
[2020-03-30] MEDS: DOCUSATE SODIUM 100 MG/10 ML LIQUID UDC GT SCH (08:03)
[2020-03-30] MEDS: HYDROGEN PEROXIDE 3% 118 ML BOTTLE TP SCH ×2 (09:08→18:51)
[2020-03-30] MEDS: JEVITY 1.2 1000 ML LIQUID GT PRN (16:08)
--- NOTE | 2020-03-30 18:37 | NUR ---
Patient noted with g-tube site red, no drainage noted, no odor noted, g- tube is intact with positive placement, triple antibiotic ordered, will continue with tx and monitor for any worsening symptoms, endorsed to next shift accordingly.
[2020-03-30 19:51] VITALS: BP 102/50
[2020-03-30] MEDS: ATORVASTATIN 10 MG TABLET GT SCH (21:33)
[2020-03-30] MEDS: NEOMY/BACITRA/POLYMYXIN B OINT UD PACKET TP SCH (21:34)
[2020-03-30] MEDS: COD LIVER OIL/ZINC OXIDE OINT 113 GM TUBE TP SCH (21:34)
[2020-03-31] MEDS: IPRATROPIUM BROMIDE 0.5 MG/2.5 ML NEBU NEB SCH ×6 (02:31→22:50)
[2020-03-31] MEDS: ALBUTEROL SULFATE 2.5 MG/3 ML NEBU NEB SCH ×6 (02:31→22:50)
[2020-03-31] MEDS: CHOLECALCIFEROL 1,000 UNIT TABLET GT SCH (05:48)
[2020-03-31] MEDS: HYDROGEN PEROXIDE 3% 118 ML BOTTLE TP SCH ×2 (07:05→21:27)
[2020-03-31] MEDS: BUDESONIDE 0.5 MG/2 ML NEBU NEB SCH ×2 (07:05→19:59)
[2020-03-31 07:39] VITALS: BP 90/45
[2020-03-31] MEDS: DOCUSATE SODIUM 100 MG/10 ML LIQUID UDC GT SCH (09:45)
[2020-03-31] MEDS: BACLOFEN 10 MG TABLET GT SCH ×2 (09:46→21:00)
[2020-03-31] MEDS: NUTRISOURCE FIBER 4 GM PACKET GT SCH ×2 (09:46→21:00)
[2020-03-31] MEDS: COD LIVER OIL/ZINC OXIDE OINT 113 GM TUBE TP SCH ×2 (09:47→21:00)
[2020-03-31] MEDS: Z GUARD REMEDY PASTE 57 GM TUBE TOP SCH ×2 (09:47→21:00)
[2020-03-31] MEDS: NEOMY/BACITRA/POLYMYXIN B OINT UD PACKET TP SCH ×2 (09:47→21:00)
[2020-03-31] MEDS: CALCIUM CARBONATE 500 MG TABLET GT SCH ×2 (09:47→21:00)
[2020-03-31 19:51] VITALS: BP 93/54
[2020-03-31] MEDS: MULTIVIT, IRON, MIN NO. 8, FA TABLET GT SCH (21:00)
[2020-03-31] MEDS: MIRALAX 17 GM POWD.PACK GT SCH (21:00)
[2020-03-31] MEDS: ATORVASTATIN 10 MG TABLET GT SCH (21:00)
[2020-04-01] MEDS: JEVITY 1.2 1000 ML LIQUID GT PRN (00:48)
[2020-04-01] MEDS: IPRATROPIUM BROMIDE 0.5 MG/2.5 ML NEBU NEB SCH ×6 (03:26→22:50)
[2020-04-01] MEDS: ALBUTEROL SULFATE 2.5 MG/3 ML NEBU NEB SCH ×6 (03:26→22:50)
[2020-04-01] MEDS: CHOLECALCIFEROL 1,000 UNIT TABLET GT SCH (06:24)
[2020-04-01] MEDS: BUDESONIDE 0.5 MG/2 ML NEBU NEB SCH ×2 (07:30→19:57)
[2020-04-01 07:35] VITALS: BP 98/57
[2020-04-01] MEDS: BACLOFEN 10 MG TABLET GT SCH ×2 (08:17→21:50)
[2020-04-01] MEDS: CALCIUM CARBONATE 500 MG TABLET GT SCH ×2 (08:17→21:50)
[2020-04-01] MEDS: Z GUARD REMEDY PASTE 57 GM TUBE TOP SCH ×2 (08:17→21:50)
[2020-04-01] MEDS: DOCUSATE SODIUM 100 MG/10 ML LIQUID UDC GT SCH (08:17)
[2020-04-01] MEDS: NUTRISOURCE FIBER 4 GM PACKET GT SCH ×2 (08:17→21:50)
[2020-04-01] MEDS: COD LIVER OIL/ZINC OXIDE OINT 113 GM TUBE TP SCH ×2 (08:18→21:50)
[2020-04-01] MEDS: NEOMY/BACITRA/POLYMYXIN B OINT UD PACKET TP SCH ×2 (08:18→21:50)
[2020-04-01] MEDS: HYDROGEN PEROXIDE 3% 118 ML BOTTLE TP SCH ×2 (09:28→21:39)
[2020-04-01] MEDS: ATORVASTATIN 10 MG TABLET GT SCH (21:50)
[2020-04-01 22:12] VITALS: BP 107/64
[2020-04-02] MEDS: IPRATROPIUM BROMIDE 0.5 MG/2.5 ML NEBU NEB SCH ×6 (02:50→22:50)
[2020-04-02] MEDS: ALBUTEROL SULFATE 2.5 MG/3 ML NEBU NEB SCH ×6 (02:50→22:50)
[2020-04-02] MEDS: JEVITY 1.2 1000 ML LIQUID GT PRN (05:11)
[2020-04-02] MEDS: CHOLECALCIFEROL 1,000 UNIT TABLET GT SCH (05:53)
[2020-04-02] MEDS: BUDESONIDE 0.5 MG/2 ML NEBU NEB SCH ×2 (07:00→20:14)
[2020-04-02 07:39] VITALS: BP 107/52
[2020-04-02 07:51] VITALS: BP 140/58
[2020-04-02] MEDS: NUTRISOURCE FIBER 4 GM PACKET GT SCH ×2 (08:37→21:24)
[2020-04-02] MEDS: DOCUSATE SODIUM 100 MG/10 ML LIQUID UDC GT SCH (08:37)
[2020-04-02] MEDS: BACLOFEN 10 MG TABLET GT SCH ×2 (08:37→21:24)
[2020-04-02] MEDS: Z GUARD REMEDY PASTE 57 GM TUBE TOP SCH ×2 (08:38→21:25)
[2020-04-02] MEDS: COD LIVER OIL/ZINC OXIDE OINT 113 GM TUBE TP SCH ×2 (08:38→21:25)
[2020-04-02] MEDS: NEOMY/BACITRA/POLYMYXIN B OINT UD PACKET TP SCH ×2 (08:38→21:25)
[2020-04-02] MEDS: CALCIUM CARBONATE 500 MG TABLET GT SCH ×2 (08:38→21:24)
[2020-04-02] MEDS: HYDROGEN PEROXIDE 3% 118 ML BOTTLE TP SCH ×2 (09:02→20:15)
--- NOTE | 2020-04-02 15:00 | NUR ---
SEEN BY DR. REAVES AND WITH NNO.
[2020-04-02] MEDS: MIRALAX 17 GM POWD.PACK GT SCH (21:24)
[2020-04-02] MEDS: ATORVASTATIN 10 MG TABLET GT SCH (21:24)
[2020-04-02] MEDS: MULTIVIT, IRON, MIN NO. 8, FA TABLET GT SCH (21:24)
[2020-04-02 22:56] VITALS: BP 106/72
[2020-04-03] MEDS: IPRATROPIUM BROMIDE 0.5 MG/2.5 ML NEBU NEB SCH ×6 (02:57→23:08)
[2020-04-03] MEDS: ALBUTEROL SULFATE 2.5 MG/3 ML NEBU NEB SCH ×6 (02:57→23:08)
[2020-04-03] MEDS: CHOLECALCIFEROL 1,000 UNIT TABLET GT SCH (06:36)
[2020-04-03] MEDS: JEVITY 1.2 1000 ML LIQUID GT PRN (07:04)
[2020-04-03] MEDS: BUDESONIDE 0.5 MG/2 ML NEBU NEB SCH ×2 (07:07→18:55)
[2020-04-03] MEDS: HYDROGEN PEROXIDE 3% 118 ML BOTTLE TP SCH ×2 (07:07→21:05)
[2020-04-03 07:34] VITALS: BP 121/53
[2020-04-03] MEDS: DOCUSATE SODIUM 100 MG/10 ML LIQUID UDC GT SCH (08:54)
[2020-04-03] MEDS: NUTRISOURCE FIBER 4 GM PACKET GT SCH ×2 (08:54→20:07)
[2020-04-03] MEDS: Z GUARD REMEDY PASTE 57 GM TUBE TOP SCH ×2 (08:54→20:07)
[2020-04-03] MEDS: NEOMY/BACITRA/POLYMYXIN B OINT UD PACKET TP SCH ×2 (08:54→20:07)
[2020-04-03] MEDS: BACLOFEN 10 MG TABLET GT SCH ×2 (08:54→20:07)
[2020-04-03] MEDS: CALCIUM CARBONATE 500 MG TABLET GT SCH ×2 (08:54→20:07)
[2020-04-03] MEDS: COD LIVER OIL/ZINC OXIDE OINT 113 GM TUBE TP SCH ×2 (08:54→20:07)
[2020-04-03] MEDS: ATORVASTATIN 10 MG TABLET GT SCH (20:07)
[2020-04-03 22:24] VITALS: BP 114/68
[2020-04-04] MEDS: ALBUTEROL SULFATE 2.5 MG/3 ML NEBU NEB SCH ×6 (02:56→23:05)
[2020-04-04] MEDS: IPRATROPIUM BROMIDE 0.5 MG/2.5 ML NEBU NEB SCH ×6 (02:56→23:05)
[2020-04-04] MEDS: JEVITY 1.2 1000 ML LIQUID GT PRN (06:06)
[2020-04-04] MEDS: CHOLECALCIFEROL 1,000 UNIT TABLET GT SCH (06:06)
[2020-04-04] MEDS: BUDESONIDE 0.5 MG/2 ML NEBU NEB SCH ×2 (07:05→19:21)
[2020-04-04] MEDS: HYDROGEN PEROXIDE 3% 118 ML BOTTLE TP SCH ×2 (07:05→19:21)
[2020-04-04 07:45] VITALS: BP 112/67
[2020-04-04] MEDS: NUTRISOURCE FIBER 4 GM PACKET GT SCH ×2 (08:41→20:28)
[2020-04-04] MEDS: COD LIVER OIL/ZINC OXIDE OINT 113 GM TUBE TP SCH ×2 (08:41→20:29)
[2020-04-04] MEDS: Z GUARD REMEDY PASTE 57 GM TUBE TOP SCH ×2 (08:41→20:28)
[2020-04-04] MEDS: CALCIUM CARBONATE 500 MG TABLET GT SCH ×2 (08:41→20:28)
[2020-04-04] MEDS: DOCUSATE SODIUM 100 MG/10 ML LIQUID UDC GT SCH (08:41)
[2020-04-04] MEDS: BACLOFEN 10 MG TABLET GT SCH ×2 (08:41→20:27)
[2020-04-04] MEDS: NEOMY/BACITRA/POLYMYXIN B OINT UD PACKET TP SCH ×2 (08:42→20:29)
[2020-04-04] MEDS: ATORVASTATIN 10 MG TABLET GT SCH (20:28)
[2020-04-04] MEDS: MULTIVIT, IRON, MIN NO. 8, FA TABLET GT SCH (20:28)
[2020-04-04 22:47] VITALS: BP 95/58
[2020-04-05] MEDS: ALBUTEROL SULFATE 2.5 MG/3 ML NEBU NEB SCH ×6 (03:10→23:38)
[2020-04-05] MEDS: IPRATROPIUM BROMIDE 0.5 MG/2.5 ML NEBU NEB SCH ×6 (03:10→23:38)
[2020-04-05] MEDS: CHOLECALCIFEROL 1,000 UNIT TABLET GT SCH (05:51)
[2020-04-05] MEDS: BUDESONIDE 0.5 MG/2 ML NEBU NEB SCH ×2 (07:03→19:11)
[2020-04-05 07:35] VITALS: BP 123/71
[2020-04-05] MEDS: NUTRISOURCE FIBER 4 GM PACKET GT SCH ×2 (08:20→20:21)
[2020-04-05] MEDS: CALCIUM CARBONATE 500 MG TABLET GT SCH ×2 (08:20→20:21)
[2020-04-05] MEDS: COD LIVER OIL/ZINC OXIDE OINT 113 GM TUBE TP SCH ×2 (08:20→20:22)
[2020-04-05] MEDS: BACLOFEN 10 MG TABLET GT SCH ×2 (08:20→20:21)
[2020-04-05] MEDS: DOCUSATE SODIUM 100 MG/10 ML LIQUID UDC GT SCH (08:20)
[2020-04-05] MEDS: Z GUARD REMEDY PASTE 57 GM TUBE TOP SCH ×2 (08:20→20:22)
[2020-04-05] MEDS: NEOMY/BACITRA/POLYMYXIN B OINT UD PACKET TP SCH ×2 (08:20→20:22)
[2020-04-05] MEDS: HYDROGEN PEROXIDE 3% 118 ML BOTTLE TP SCH ×2 (09:14→21:05)
[2020-04-05] MEDS: JEVITY 1.2 1000 ML LIQUID GT PRN (11:25)
[2020-04-05 20:06] VITALS: BP 117/76
[2020-04-05] MEDS: ATORVASTATIN 10 MG TABLET GT SCH (20:21)
[2020-04-05] MEDS: MIRALAX 17 GM POWD.PACK GT SCH (20:21)
[2020-04-06] MEDS: IPRATROPIUM BROMIDE 0.5 MG/2.5 ML NEBU NEB SCH ×6 (03:14→22:50)
[2020-04-06] MEDS: ALBUTEROL SULFATE 2.5 MG/3 ML NEBU NEB SCH ×6 (03:14→22:50)
[2020-04-06] MEDS: CHOLECALCIFEROL 1,000 UNIT TABLET GT SCH (05:55)
[2020-04-06] MEDS: HYDROGEN PEROXIDE 3% 118 ML BOTTLE TP SCH ×2 (06:52→20:04)
[2020-04-06] MEDS: BUDESONIDE 0.5 MG/2 ML NEBU NEB SCH ×2 (06:52→20:04)
[2020-04-06 07:40] VITALS: BP 126/70
[2020-04-06] MEDS: COD LIVER OIL/ZINC OXIDE OINT 113 GM TUBE TP SCH ×2 (08:16→21:45)
[2020-04-06] MEDS: Z GUARD REMEDY PASTE 57 GM TUBE TOP SCH ×2 (08:16→21:45)
[2020-04-06] MEDS: DOCUSATE SODIUM 100 MG/10 ML LIQUID UDC GT SCH (08:16)
[2020-04-06] MEDS: NUTRISOURCE FIBER 4 GM PACKET GT SCH ×2 (08:16→21:45)
[2020-04-06] MEDS: BACLOFEN 10 MG TABLET GT SCH ×2 (08:16→21:45)
[2020-04-06] MEDS: CALCIUM CARBONATE 500 MG TABLET GT SCH ×2 (08:16→21:45)
[2020-04-06] MEDS: NEOMY/BACITRA/POLYMYXIN B OINT UD PACKET TP SCH ×2 (08:17→21:45)
--- NOTE | 2020-04-06 09:00 | NUR ---
Seen and examined by Dr Palomino with new orders noted.
--- NOTE | 2020-04-06 14:57 | NUR ---
INTERDISCIPLINARY PLAN OF CARE CONFERENCE was held today. Patient's family does not participate in the IDT meetings. Dr. Underwood and the Interdisciplinary Team reviewed the current plan of care in detail. RN reported on patient's medical condition, and stated that patient has orders for new labs. See RN IDT conference notes. No major changes in medical condition were reported by nursing or by other disciplines. See all other disciplines IDT notes and physician's progress notes for additional details.
[2020-04-06] MEDS: JEVITY 1.2 1000 ML LIQUID GT PRN (16:56)
[2020-04-06 20:14] VITALS: BP 99/56
[2020-04-06] MEDS: ATORVASTATIN 10 MG TABLET GT SCH (21:45)
[2020-04-06] MEDS: MULTIVIT, IRON, MIN NO. 8, FA TABLET GT SCH (21:45)
[2020-04-07] MEDS: IPRATROPIUM BROMIDE 0.5 MG/2.5 ML NEBU NEB SCH ×6 (02:50→22:50)
[2020-04-07] MEDS: ALBUTEROL SULFATE 2.5 MG/3 ML NEBU NEB SCH ×6 (02:50→22:50)
[2020-04-07 06:26] LABS: BASOPHILS % (AUTO) 0.5 % (0.0-2.0); EOSINOPHILS # (AUTO) 0.3 K/uL (0.0-0.7); EOSINOPHILS % (AUTO) 6.2 % (0.0-7.0); HEMOGLOBIN 14.7 g/dL (10.9-14.3); LYMPHOCYTES # (AUTO) 1.2 K/uL (20.0-40.0); LYMPHOCYTES % (AUTO) 28.7 % (20.5-51.5); MEAN CORPUSCULAR HEMOGLOBIN 33.1 uug (24.7-32.8); MEAN CORPUSCULAR HGB CONC 35 g/dL (32.3-35.6); MEAN CORPUSCULAR VOLUME 94.3 fL (75.5-95.3); MONOCYTES # (AUTO) 0.4 K/uL (2.0-10.0); NEUTROPHILS # (AUTO) 2.3 K/uL (1.8-8.9); NEUTROPHILS % (AUTO) 54.6 % (38.5-71.5); PLATELET COUNT (AUTO) 156 K/uL (179-408); RED BLOOD CELL COUNT(AUTO) 4.45 MIL/uL (3.63-4.92); WHITE BLOOD COUNT (AUTO) 4.2 K/uL (3.8-11.8)
[2020-04-07 06:59] LABS: THYROID STIMULATING HORMONE 1.716 mIU/mL (0.358-3.740)
[2020-04-07] MEDS: BUDESONIDE 0.5 MG/2 ML NEBU NEB SCH ×2 (07:02→20:14)
[2020-04-07] MEDS: CHOLECALCIFEROL 1,000 UNIT TABLET GT SCH (07:05)
[2020-04-07 07:10] LABS: BILIRUBIN,TOTAL 0.3 mg/dL (0.2-1.0); CREATININE 0.7 mg/dL (0.6-1.3); POTASSIUM 3.8 mmol/L (3.5-5.1); TOTAL PROTEIN, SERUM 7.3 g/dL (6.4-8.2)
[2020-04-07 07:44] VITALS: BP 113/74
[2020-04-07] MEDS: HYDROGEN PEROXIDE 3% 118 ML BOTTLE TP SCH ×2 (08:04→20:14)
[2020-04-07] MEDS: COD LIVER OIL/ZINC OXIDE OINT 113 GM TUBE TP SCH ×2 (08:23→21:00)
[2020-04-07] MEDS: Z GUARD REMEDY PASTE 57 GM TUBE TOP SCH ×2 (08:24→21:00)
[2020-04-07] MEDS: NUTRISOURCE FIBER 4 GM PACKET GT SCH ×2 (08:24→21:00)
[2020-04-07] MEDS: NEOMY/BACITRA/POLYMYXIN B OINT UD PACKET TP SCH ×2 (08:24→21:00)
[2020-04-07] MEDS: CALCIUM CARBONATE 500 MG TABLET GT SCH ×2 (08:25→21:00)
[2020-04-07] MEDS: DOCUSATE SODIUM 100 MG/10 ML LIQUID UDC GT SCH (08:26)
[2020-04-07] MEDS: BACLOFEN 10 MG TABLET GT SCH ×2 (08:27→21:00)
[2020-04-07 20:05] VITALS: BP 128/84
[2020-04-07] MEDS: MIRALAX 17 GM POWD.PACK GT SCH (21:00)
[2020-04-07] MEDS: ATORVASTATIN 10 MG TABLET GT SCH (21:00)
[2020-04-07] MEDS: JEVITY 1.2 1000 ML LIQUID GT PRN (22:45)
[2020-04-08] MEDS: IPRATROPIUM BROMIDE 0.5 MG/2.5 ML NEBU NEB SCH ×6 (03:01→22:50)
[2020-04-08] MEDS: ALBUTEROL SULFATE 2.5 MG/3 ML NEBU NEB SCH ×6 (03:02→22:50)
[2020-04-08] MEDS: CHOLECALCIFEROL 1,000 UNIT TABLET GT SCH (05:30)
[2020-04-08] MEDS: BUDESONIDE 0.5 MG/2 ML NEBU NEB SCH ×2 (07:16→20:00)
[2020-04-08] MEDS: HYDROGEN PEROXIDE 3% 118 ML BOTTLE TP SCH ×2 (07:17→20:00)
[2020-04-08 07:38] VITALS: BP 119/71
[2020-04-08] MEDS: NUTRISOURCE FIBER 4 GM PACKET GT SCH ×2 (08:48→21:01)
[2020-04-08] MEDS: BACLOFEN 10 MG TABLET GT SCH ×2 (08:48→21:01)
[2020-04-08] MEDS: CALCIUM CARBONATE 500 MG TABLET GT SCH ×2 (08:48→21:01)
[2020-04-08] MEDS: Z GUARD REMEDY PASTE 57 GM TUBE TOP SCH ×2 (08:49→21:03)
[2020-04-08] MEDS: COD LIVER OIL/ZINC OXIDE OINT 113 GM TUBE TP SCH ×2 (08:49→21:03)
[2020-04-08] MEDS: NEOMY/BACITRA/POLYMYXIN B OINT UD PACKET TP SCH ×3 (08:49→21:03)
[2020-04-08] MEDS: DOCUSATE SODIUM 100 MG/10 ML LIQUID UDC GT SCH (08:53)
[2020-04-08] MEDS: MULTIVIT, IRON, MIN NO. 8, FA TABLET GT SCH (21:01)
[2020-04-08] MEDS: ATORVASTATIN 10 MG TABLET GT SCH (21:01)
[2020-04-08 21:03] VITALS: BP 110/59
[2020-04-08] MEDS: JEVITY 1.2 1000 ML LIQUID GT PRN (23:11)
[2020-04-09] MEDS: ALBUTEROL SULFATE 2.5 MG/3 ML NEBU NEB SCH ×6 (02:50→22:55)
[2020-04-09] MEDS: IPRATROPIUM BROMIDE 0.5 MG/2.5 ML NEBU NEB SCH ×6 (02:50→22:55)
[2020-04-09] MEDS: CHOLECALCIFEROL 1,000 UNIT TABLET GT SCH (05:32)
[2020-04-09] MEDS: BUDESONIDE 0.5 MG/2 ML NEBU NEB SCH ×2 (07:10→18:50)
[2020-04-09 07:40] VITALS: BP 99/58
[2020-04-09] MEDS: DOCUSATE SODIUM 100 MG/10 ML LIQUID UDC GT SCH (08:00)
[2020-04-09] MEDS: CALCIUM CARBONATE 500 MG TABLET GT SCH ×2 (08:00→21:25)
[2020-04-09] MEDS: NUTRISOURCE FIBER 4 GM PACKET GT SCH ×2 (08:00→21:24)
[2020-04-09] MEDS: Z GUARD REMEDY PASTE 57 GM TUBE TOP SCH ×2 (08:00→21:26)
[2020-04-09] MEDS: BACLOFEN 10 MG TABLET GT SCH ×2 (08:00→21:24)
[2020-04-09] MEDS: NEOMY/BACITRA/POLYMYXIN B OINT UD PACKET TP SCH ×3 (08:01→21:26)
[2020-04-09] MEDS: COD LIVER OIL/ZINC OXIDE OINT 113 GM TUBE TP SCH ×2 (08:01→21:26)
[2020-04-09] MEDS: HYDROGEN PEROXIDE 3% 118 ML BOTTLE TP SCH ×2 (09:00→20:56)
[2020-04-09] MEDS: ATORVASTATIN 10 MG TABLET GT SCH (21:24)
[2020-04-09] MEDS: MIRALAX 17 GM POWD.PACK GT SCH (21:24)
[2020-04-09 21:57] VITALS: BP 147/98
[2020-04-10] MEDS: ALBUTEROL SULFATE 2.5 MG/3 ML NEBU NEB SCH ×6 (02:57→22:30)
[2020-04-10] MEDS: IPRATROPIUM BROMIDE 0.5 MG/2.5 ML NEBU NEB SCH ×6 (02:57→22:30)
[2020-04-10] MEDS: JEVITY 1.2 1000 ML LIQUID GT PRN (03:33)
[2020-04-10] MEDS: CHOLECALCIFEROL 1,000 UNIT TABLET GT SCH (05:50)
[2020-04-10] MEDS: HYDROGEN PEROXIDE 3% 118 ML BOTTLE TP SCH ×2 (07:37→18:55)
[2020-04-10] MEDS: BUDESONIDE 0.5 MG/2 ML NEBU NEB SCH ×2 (07:37→18:55)
[2020-04-10 08:00] VITALS: BP 102/57
[2020-04-10] MEDS: BACLOFEN 10 MG TABLET GT SCH ×2 (09:13→21:28)
[2020-04-10] MEDS: DOCUSATE SODIUM 100 MG/10 ML LIQUID UDC GT SCH (09:13)
[2020-04-10] MEDS: Z GUARD REMEDY PASTE 57 GM TUBE TOP SCH ×2 (09:13→21:28)
[2020-04-10] MEDS: NUTRISOURCE FIBER 4 GM PACKET GT SCH ×2 (09:13→21:28)
[2020-04-10] MEDS: CALCIUM CARBONATE 500 MG TABLET GT SCH ×2 (09:13→21:28)
[2020-04-10] MEDS: COD LIVER OIL/ZINC OXIDE OINT 113 GM TUBE TP SCH ×2 (09:13→21:28)
[2020-04-10] MEDS: NEOMY/BACITRA/POLYMYXIN B OINT UD PACKET TP SCH ×5 (09:14→21:30)
--- NOTE | 2020-04-10 12:37 | NUR ---
Reported by Rt during trach care, right side of the neck open skin noted, tx ordered to apply triple atb ointment, cover with dry dressing qshift x14 days.
[2020-04-10 20:07] VITALS: BP 99/60
[2020-04-10] MEDS: ATORVASTATIN 10 MG TABLET GT SCH (21:28)
[2020-04-10] MEDS: MULTIVIT, IRON, MIN NO. 8, FA TABLET GT SCH (21:28)
[2020-04-11] MEDS: IPRATROPIUM BROMIDE 0.5 MG/2.5 ML NEBU NEB SCH ×6 (02:30→22:34)
[2020-04-11] MEDS: ALBUTEROL SULFATE 2.5 MG/3 ML NEBU NEB SCH ×6 (02:30→22:34)
[2020-04-11] MEDS: JEVITY 1.2 1000 ML LIQUID GT PRN (03:34)
[2020-04-11] MEDS: CHOLECALCIFEROL 1,000 UNIT TABLET GT SCH (06:19)
[2020-04-11] MEDS: BUDESONIDE 0.5 MG/2 ML NEBU NEB SCH ×2 (07:04→18:36)
[2020-04-11 07:39] VITALS: BP 142/89
[2020-04-11] MEDS: CALCIUM CARBONATE 500 MG TABLET GT SCH ×2 (08:35→21:52)
[2020-04-11] MEDS: DOCUSATE SODIUM 100 MG/10 ML LIQUID UDC GT SCH (08:35)
[2020-04-11] MEDS: NEOMY/BACITRA/POLYMYXIN B OINT UD PACKET TP SCH ×5 (08:35→21:53)
[2020-04-11] MEDS: BACLOFEN 10 MG TABLET GT SCH ×2 (08:35→21:52)
[2020-04-11] MEDS: COD LIVER OIL/ZINC OXIDE OINT 113 GM TUBE TP SCH ×2 (08:35→21:53)
[2020-04-11] MEDS: Z GUARD REMEDY PASTE 57 GM TUBE TOP SCH ×2 (08:35→21:53)
[2020-04-11] MEDS: NUTRISOURCE FIBER 4 GM PACKET GT SCH ×2 (08:35→21:52)
[2020-04-11] MEDS: HYDROGEN PEROXIDE 3% 118 ML BOTTLE TP SCH ×2 (09:32→20:00)
--- NOTE | 2020-04-11 16:20 | NUR ---
Covid19 test done.
[2020-04-11 20:13] VITALS: BP 139/87
[2020-04-11] MEDS: ATORVASTATIN 10 MG TABLET GT SCH (21:52)
[2020-04-12] MEDS: ALBUTEROL SULFATE 2.5 MG/3 ML NEBU NEB SCH ×6 (03:25→22:50)
[2020-04-12] MEDS: IPRATROPIUM BROMIDE 0.5 MG/2.5 ML NEBU NEB SCH ×6 (03:25→22:50)
[2020-04-12] MEDS: CHOLECALCIFEROL 1,000 UNIT TABLET GT SCH (06:48)
[2020-04-12] MEDS: BUDESONIDE 0.5 MG/2 ML NEBU NEB SCH ×2 (07:00→19:55)
[2020-04-12 07:22] VITALS: BP 119/50
[2020-04-12] MEDS: NUTRISOURCE FIBER 4 GM PACKET GT SCH ×2 (08:11→21:34)
[2020-04-12] MEDS: NEOMY/BACITRA/POLYMYXIN B OINT UD PACKET TP SCH ×5 (08:12→21:35)
[2020-04-12] MEDS: COD LIVER OIL/ZINC OXIDE OINT 113 GM TUBE TP SCH ×2 (08:12→21:34)
[2020-04-12] MEDS: Z GUARD REMEDY PASTE 57 GM TUBE TOP SCH ×2 (08:12→21:34)
[2020-04-12] MEDS: CALCIUM CARBONATE 500 MG TABLET GT SCH ×2 (08:14→21:34)
[2020-04-12] MEDS: BACLOFEN 10 MG TABLET GT SCH ×2 (08:15→21:34)
[2020-04-12] MEDS: DOCUSATE SODIUM 100 MG/10 ML LIQUID UDC GT SCH (08:17)
[2020-04-12] MEDS: HYDROGEN PEROXIDE 3% 118 ML BOTTLE TP SCH ×2 (09:12→21:16)
[2020-04-12] MEDS: JEVITY 1.2 1000 ML LIQUID GT PRN (11:41)
--- NOTE | 2020-04-12 15:19 | NUR ---
NOTIFIED RESPONSIBLE GREEN PARTY, ALEXA PATEL, OF COVID-19 POSSIBLE EXPOSURE AND TESTING PLAN FOR CURRENT AND NEXT WEEK MANDATED. RESPONSIBLE GREEN PARTY VERBALIZED GOOD UNDERSTANDING.
[2020-04-12 20:39] VITALS: BP 118/52
[2020-04-12] MEDS: ATORVASTATIN 10 MG TABLET GT SCH (21:34)
[2020-04-12] MEDS: MIRALAX 17 GM POWD.PACK GT SCH (21:34)
[2020-04-12] MEDS: MULTIVIT, IRON, MIN NO. 8, FA TABLET GT SCH (21:34)
[2020-04-13] MEDS: IPRATROPIUM BROMIDE 0.5 MG/2.5 ML NEBU NEB SCH ×6 (02:51→22:50)
[2020-04-13] MEDS: ALBUTEROL SULFATE 2.5 MG/3 ML NEBU NEB SCH ×6 (02:51→22:50)
[2020-04-13] MEDS: CHOLECALCIFEROL 1,000 UNIT TABLET GT SCH (06:02)
[2020-04-13] MEDS: BUDESONIDE 0.5 MG/2 ML NEBU NEB SCH ×2 (06:50→20:25)
[2020-04-13 07:59] VITALS: BP 123/79
[2020-04-13] MEDS: Z GUARD REMEDY PASTE 57 GM TUBE TOP SCH ×2 (08:22→20:25)
[2020-04-13] MEDS: NUTRISOURCE FIBER 4 GM PACKET GT SCH ×2 (08:22→20:25)
[2020-04-13] MEDS: NEOMY/BACITRA/POLYMYXIN B OINT UD PACKET TP SCH ×5 (08:22→20:26)
[2020-04-13] MEDS: COD LIVER OIL/ZINC OXIDE OINT 113 GM TUBE TP SCH ×2 (08:22→20:26)
[2020-04-13] MEDS: DOCUSATE SODIUM 100 MG/10 ML LIQUID UDC GT SCH (08:22)
[2020-04-13] MEDS: BACLOFEN 10 MG TABLET GT SCH ×2 (08:22→20:25)
[2020-04-13] MEDS: CALCIUM CARBONATE 500 MG TABLET GT SCH ×2 (08:22→20:25)
[2020-04-13] MEDS: HYDROGEN PEROXIDE 3% 118 ML BOTTLE TP SCH ×2 (09:33→20:25)
[2020-04-13] MEDS: JEVITY 1.2 1000 ML LIQUID GT PRN (15:23)
[2020-04-13 20:20] VITALS: BP 102/62
[2020-04-13] MEDS: ATORVASTATIN 10 MG TABLET GT SCH (20:25)
[2020-04-14] MEDS: ALBUTEROL SULFATE 2.5 MG/3 ML NEBU NEB SCH ×6 (02:50→22:30)
[2020-04-14] MEDS: IPRATROPIUM BROMIDE 0.5 MG/2.5 ML NEBU NEB SCH ×6 (02:50→22:30)
[2020-04-14] MEDS: CHOLECALCIFEROL 1,000 UNIT TABLET GT SCH (05:55)
[2020-04-14] MEDS: BUDESONIDE 0.5 MG/2 ML NEBU NEB SCH ×2 (07:01→18:39)
[2020-04-14 07:39] VITALS: BP 110/80
[2020-04-14] MEDS: HYDROGEN PEROXIDE 3% 118 ML BOTTLE TP SCH ×2 (09:17→18:40)
[2020-04-14] MEDS: DOCUSATE SODIUM 100 MG/10 ML LIQUID UDC GT SCH (09:44)
[2020-04-14] MEDS: BACLOFEN 10 MG TABLET GT SCH ×2 (09:45→20:33)
[2020-04-14] MEDS: NUTRISOURCE FIBER 4 GM PACKET GT SCH ×2 (09:45→20:33)
[2020-04-14] MEDS: CALCIUM CARBONATE 500 MG TABLET GT SCH ×2 (09:46→20:34)
[2020-04-14] MEDS: Z GUARD REMEDY PASTE 57 GM TUBE TOP SCH ×2 (09:46→20:35)
[2020-04-14] MEDS: COD LIVER OIL/ZINC OXIDE OINT 113 GM TUBE TP SCH ×2 (09:46→20:35)
[2020-04-14] MEDS: NEOMY/BACITRA/POLYMYXIN B OINT UD PACKET TP SCH ×5 (09:47→20:35)
[2020-04-14] MEDS: JEVITY 1.2 1000 ML LIQUID GT PRN (18:45)
[2020-04-14 20:00] VITALS: BP 99/72
[2020-04-14] MEDS: ATORVASTATIN 10 MG TABLET GT SCH (20:33)
[2020-04-14] MEDS: MIRALAX 17 GM POWD.PACK GT SCH (20:33)
[2020-04-14] MEDS: MULTIVIT, IRON, MIN NO. 8, FA TABLET GT SCH (20:34)
[2020-04-15] MEDS: ALBUTEROL SULFATE 2.5 MG/3 ML NEBU NEB SCH ×6 (02:30→22:30)
[2020-04-15] MEDS: IPRATROPIUM BROMIDE 0.5 MG/2.5 ML NEBU NEB SCH ×6 (02:30→22:30)
[2020-04-15] MEDS: CHOLECALCIFEROL 1,000 UNIT TABLET GT SCH (05:37)
[2020-04-15] MEDS: BUDESONIDE 0.5 MG/2 ML NEBU NEB SCH ×2 (07:12→18:35)
[2020-04-15 07:42] VITALS: BP 121/86
[2020-04-15] MEDS: HYDROGEN PEROXIDE 3% 118 ML BOTTLE TP SCH ×2 (08:40→18:35)
[2020-04-15] MEDS: BACLOFEN 10 MG TABLET GT SCH ×2 (08:43→20:19)
[2020-04-15] MEDS: NUTRISOURCE FIBER 4 GM PACKET GT SCH ×2 (08:43→20:19)
[2020-04-15] MEDS: DOCUSATE SODIUM 100 MG/10 ML LIQUID UDC GT SCH (08:43)
[2020-04-15] MEDS: CALCIUM CARBONATE 500 MG TABLET GT SCH ×2 (08:43→20:19)
[2020-04-15] MEDS: NEOMY/BACITRA/POLYMYXIN B OINT UD PACKET TP SCH ×5 (08:44→20:19)
[2020-04-15] MEDS: Z GUARD REMEDY PASTE 57 GM TUBE TOP SCH ×2 (08:44→20:19)
[2020-04-15] MEDS: COD LIVER OIL/ZINC OXIDE OINT 113 GM TUBE TP SCH ×2 (08:44→20:19)
[2020-04-15 20:00] VITALS: BP 121/81
[2020-04-15] MEDS: ATORVASTATIN 10 MG TABLET GT SCH (20:19)
[2020-04-15] MEDS: JEVITY 1.2 1000 ML LIQUID GT PRN (20:22)
[2020-04-16] MEDS: IPRATROPIUM BROMIDE 0.5 MG/2.5 ML NEBU NEB SCH ×6 (02:30→22:54)
[2020-04-16] MEDS: ALBUTEROL SULFATE 2.5 MG/3 ML NEBU NEB SCH ×6 (02:30→22:54)
[2020-04-16] MEDS: CHOLECALCIFEROL 1,000 UNIT TABLET GT SCH (06:04)
[2020-04-16] MEDS: BUDESONIDE 0.5 MG/2 ML NEBU NEB SCH ×2 (07:16→18:59)
[2020-04-16 07:26] VITALS: BP 109/75
[2020-04-16] MEDS: DOCUSATE SODIUM 100 MG/10 ML LIQUID UDC GT SCH (08:37)
[2020-04-16] MEDS: Z GUARD REMEDY PASTE 57 GM TUBE TOP SCH ×2 (08:38→20:48)
[2020-04-16] MEDS: BACLOFEN 10 MG TABLET GT SCH ×2 (08:38→20:47)
[2020-04-16] MEDS: NUTRISOURCE FIBER 4 GM PACKET GT SCH ×2 (08:38→20:47)
[2020-04-16] MEDS: CALCIUM CARBONATE 500 MG TABLET GT SCH ×2 (08:38→20:47)
[2020-04-16] MEDS: HYDROGEN PEROXIDE 3% 118 ML BOTTLE TP SCH ×2 (08:40→21:07)
[2020-04-16] MEDS: NEOMY/BACITRA/POLYMYXIN B OINT UD PACKET TP SCH ×5 (09:00→20:48)
[2020-04-16] MEDS: COD LIVER OIL/ZINC OXIDE OINT 113 GM TUBE TP SCH ×2 (09:00→20:48)
--- NOTE | 2020-04-16 10:00 | NUR ---
SEEN David GREY N.P. AND WITH NNO.
--- NOTE | 2020-04-16 15:00 | NUR ---
SEEN BY DR. REAVES AND WITH NNO.
[2020-04-16 20:00] VITALS: BP 107/63
[2020-04-16] MEDS: MIRALAX 17 GM POWD.PACK GT SCH (20:47)
[2020-04-16] MEDS: MULTIVIT, IRON, MIN NO. 8, FA TABLET GT SCH (20:47)
[2020-04-16] MEDS: ATORVASTATIN 10 MG TABLET GT SCH (20:47)
[2020-04-17] MEDS: ALBUTEROL SULFATE 2.5 MG/3 ML NEBU NEB SCH ×6 (02:57→22:50)
[2020-04-17] MEDS: IPRATROPIUM BROMIDE 0.5 MG/2.5 ML NEBU NEB SCH ×6 (02:57→22:50)
[2020-04-17] MEDS: CHOLECALCIFEROL 1,000 UNIT TABLET GT SCH (05:35)
[2020-04-17] MEDS: BUDESONIDE 0.5 MG/2 ML NEBU NEB SCH ×2 (07:15→19:55)
[2020-04-17 07:38] VITALS: BP 123/70
[2020-04-17] MEDS: BACLOFEN 10 MG TABLET GT SCH ×2 (08:36→21:05)
[2020-04-17] MEDS: DOCUSATE SODIUM 100 MG/10 ML LIQUID UDC GT SCH (08:36)
[2020-04-17] MEDS: CALCIUM CARBONATE 500 MG TABLET GT SCH ×2 (08:37→21:05)
[2020-04-17] MEDS: Z GUARD REMEDY PASTE 57 GM TUBE TOP SCH ×2 (08:37→21:05)
[2020-04-17] MEDS: NUTRISOURCE FIBER 4 GM PACKET GT SCH ×2 (08:37→21:05)
[2020-04-17] MEDS: HYDROGEN PEROXIDE 3% 118 ML BOTTLE TP SCH ×2 (08:39→21:38)
[2020-04-17] MEDS: COD LIVER OIL/ZINC OXIDE OINT 113 GM TUBE TP SCH ×2 (08:39→21:05)
[2020-04-17] MEDS: NEOMY/BACITRA/POLYMYXIN B OINT UD PACKET TP SCH ×5 (09:00→21:05)
[2020-04-17 20:11] VITALS: BP 120/74
[2020-04-17] MEDS: ATORVASTATIN 10 MG TABLET GT SCH (21:05)
[2020-04-18] MEDS: ALBUTEROL SULFATE 2.5 MG/3 ML NEBU NEB SCH ×6 (02:50→22:50)
[2020-04-18] MEDS: IPRATROPIUM BROMIDE 0.5 MG/2.5 ML NEBU NEB SCH ×6 (02:50→22:50)
[2020-04-18] MEDS: CHOLECALCIFEROL 1,000 UNIT TABLET GT SCH (05:32)
[2020-04-18] MEDS: HYDROGEN PEROXIDE 3% 118 ML BOTTLE TP SCH ×2 (07:21→20:27)
[2020-04-18] MEDS: BUDESONIDE 0.5 MG/2 ML NEBU NEB SCH ×2 (07:21→19:45)
[2020-04-18 07:38] VITALS: BP 149/92
[2020-04-18 07:40] VITALS: BP 115/73
[2020-04-18] MEDS: DOCUSATE SODIUM 100 MG/10 ML LIQUID UDC GT SCH (08:42)
[2020-04-18] MEDS: BACLOFEN 10 MG TABLET GT SCH ×2 (08:43→20:56)
[2020-04-18] MEDS: Z GUARD REMEDY PASTE 57 GM TUBE TOP SCH ×2 (08:44→20:56)
[2020-04-18] MEDS: COD LIVER OIL/ZINC OXIDE OINT 113 GM TUBE TP SCH ×3 (08:44→20:56)
[2020-04-18] MEDS: CALCIUM CARBONATE 500 MG TABLET GT SCH ×2 (08:44→20:56)
[2020-04-18] MEDS: NUTRISOURCE FIBER 4 GM PACKET GT SCH ×2 (08:44→20:56)
[2020-04-18] MEDS: NEOMY/BACITRA/POLYMYXIN B OINT UD PACKET TP SCH ×5 (09:00→20:56)
--- NOTE | 2020-04-18 14:00 | NUR ---
Finding pt with left buttocks excoriation tx initiated and picture taken.Nurse in charge aware.
[2020-04-18] MEDS: JEVITY 1.2 1000 ML LIQUID GT PRN ×2 (17:19→17:48)
[2020-04-18 20:11] VITALS: BP 127/81
[2020-04-18] MEDS: MULTIVIT, IRON, MIN NO. 8, FA TABLET GT SCH (20:56)
[2020-04-18] MEDS: ATORVASTATIN 10 MG TABLET GT SCH (20:56)
[2020-04-19] MEDS: ALBUTEROL SULFATE 2.5 MG/3 ML NEBU NEB SCH ×6 (02:50→22:32)
[2020-04-19] MEDS: IPRATROPIUM BROMIDE 0.5 MG/2.5 ML NEBU NEB SCH ×6 (02:50→22:32)
[2020-04-19] MEDS: CHOLECALCIFEROL 1,000 UNIT TABLET GT SCH (05:41)
[2020-04-19] MEDS: BUDESONIDE 0.5 MG/2 ML NEBU NEB SCH ×2 (07:18→19:17)
[2020-04-19 07:45] VITALS: BP 126/79
[2020-04-19] MEDS: HYDROGEN PEROXIDE 3% 118 ML BOTTLE TP SCH ×2 (08:40→19:17)
[2020-04-19] MEDS: NEOMY/BACITRA/POLYMYXIN B OINT UD PACKET TP SCH ×5 (09:37→20:46)
[2020-04-19] MEDS: Z GUARD REMEDY PASTE 57 GM TUBE TOP SCH ×2 (09:37→20:46)
[2020-04-19] MEDS: COD LIVER OIL/ZINC OXIDE OINT 113 GM TUBE TP SCH ×4 (09:37→20:46)
[2020-04-19] MEDS: NUTRISOURCE FIBER 4 GM PACKET GT SCH ×2 (09:37→20:45)
[2020-04-19] MEDS: CALCIUM CARBONATE 500 MG TABLET GT SCH ×2 (09:38→20:45)
[2020-04-19] MEDS: DOCUSATE SODIUM 100 MG/10 ML LIQUID UDC GT SCH (09:39)
[2020-04-19] MEDS: BACLOFEN 10 MG TABLET GT SCH ×2 (09:39→20:45)
--- NOTE | 2020-04-19 15:30 | NUR ---
NEW ORDER CARRIED OUT FOR COVID 19 TEST.
--- NOTE | 2020-04-19 16:29 | NUR ---
Patient relative notified for covid test.
[2020-04-19 19:48] VITALS: BP 109/75
[2020-04-19] MEDS: ATORVASTATIN 10 MG TABLET GT SCH (20:45)
[2020-04-19] MEDS: MIRALAX 17 GM POWD.PACK GT SCH (20:45)
[2020-04-20] MEDS: ALBUTEROL SULFATE 2.5 MG/3 ML NEBU NEB SCH ×6 (04:27→22:56)
[2020-04-20] MEDS: IPRATROPIUM BROMIDE 0.5 MG/2.5 ML NEBU NEB SCH ×6 (04:27→22:56)
[2020-04-20] MEDS: CHOLECALCIFEROL 1,000 UNIT TABLET GT SCH (05:47)
[2020-04-20] MEDS: BUDESONIDE 0.5 MG/2 ML NEBU NEB SCH ×2 (07:04→18:55)
[2020-04-20 07:26] VITALS: BP 113/64
[2020-04-20] MEDS: DOCUSATE SODIUM 100 MG/10 ML LIQUID UDC GT SCH (08:30)
[2020-04-20] MEDS: CALCIUM CARBONATE 500 MG TABLET GT SCH ×2 (08:31→20:33)
[2020-04-20] MEDS: NUTRISOURCE FIBER 4 GM PACKET GT SCH ×2 (08:31→20:33)
[2020-04-20] MEDS: BACLOFEN 10 MG TABLET GT SCH ×2 (08:31→20:33)
[2020-04-20] MEDS: Z GUARD REMEDY PASTE 57 GM TUBE TOP SCH ×2 (08:31→20:33)
[2020-04-20] MEDS: NEOMY/BACITRA/POLYMYXIN B OINT UD PACKET TP SCH ×5 (08:32→20:34)
[2020-04-20] MEDS: COD LIVER OIL/ZINC OXIDE OINT 113 GM TUBE TP SCH ×4 (08:32→20:34)
[2020-04-20] MEDS: HYDROGEN PEROXIDE 3% 118 ML BOTTLE TP SCH ×2 (09:32→20:34)
[2020-04-20 20:24] VITALS: BP 118/79
[2020-04-20] MEDS: ATORVASTATIN 10 MG TABLET GT SCH (20:33)
[2020-04-20] MEDS: MULTIVIT, IRON, MIN NO. 8, FA TABLET GT SCH (20:33)
[2020-04-20] MEDS: JEVITY 1.2 1000 ML LIQUID GT PRN (23:16)
[2020-04-21] MEDS: IPRATROPIUM BROMIDE 0.5 MG/2.5 ML NEBU NEB SCH ×6 (02:56→22:50)
[2020-04-21] MEDS: ALBUTEROL SULFATE 2.5 MG/3 ML NEBU NEB SCH ×6 (02:56→22:50)
[2020-04-21] MEDS: CHOLECALCIFEROL 1,000 UNIT TABLET GT SCH (06:10)
[2020-04-21] MEDS: BUDESONIDE 0.5 MG/2 ML NEBU NEB SCH ×2 (07:35→19:46)
[2020-04-21] MEDS: DOCUSATE SODIUM 100 MG/10 ML LIQUID UDC GT SCH (09:01)
[2020-04-21] MEDS: BACLOFEN 10 MG TABLET GT SCH ×2 (09:01→21:07)
[2020-04-21] MEDS: CALCIUM CARBONATE 500 MG TABLET GT SCH ×2 (09:02→21:12)
[2020-04-21] MEDS: COD LIVER OIL/ZINC OXIDE OINT 113 GM TUBE TP SCH ×2 (09:02→21:12)
[2020-04-21] MEDS: NUTRISOURCE FIBER 4 GM PACKET GT SCH ×2 (09:02→21:10)
[2020-04-21] MEDS: Z GUARD REMEDY PASTE 57 GM TUBE TOP SCH ×2 (09:02→21:12)
[2020-04-21] MEDS: NEOMY/BACITRA/POLYMYXIN B OINT UD PACKET TP SCH ×2 (09:02→21:12)
[2020-04-21] MEDS: HYDROGEN PEROXIDE 3% 118 ML BOTTLE TP SCH ×2 (11:10→21:27)
--- NOTE | 2020-04-21 17:41 | NUR ---
Sister Dione was informed the result for Covid19 test was negative.
[2020-04-21 20:04] VITALS: BP 106/68
[2020-04-21] MEDS: ATORVASTATIN 10 MG TABLET GT SCH (21:07)
[2020-04-21] MEDS: MIRALAX 17 GM POWD.PACK GT SCH (21:08)
[2020-04-22] MEDS: IPRATROPIUM BROMIDE 0.5 MG/2.5 ML NEBU NEB SCH ×6 (02:50→22:50)
[2020-04-22] MEDS: ALBUTEROL SULFATE 2.5 MG/3 ML NEBU NEB SCH ×6 (02:50→22:50)
[2020-04-22] MEDS: JEVITY 1.2 1000 ML LIQUID GT PRN (03:43)
[2020-04-22] MEDS: CHOLECALCIFEROL 1,000 UNIT TABLET GT SCH (06:09)
[2020-04-22] MEDS: HYDROGEN PEROXIDE 3% 118 ML BOTTLE TP SCH ×2 (07:15→20:38)
[2020-04-22] MEDS: BUDESONIDE 0.5 MG/2 ML NEBU NEB SCH ×2 (07:15→19:55)
[2020-04-22 07:43] VITALS: BP 116/73
[2020-04-22] MEDS: BACLOFEN 10 MG TABLET GT SCH ×2 (09:07→21:26)
[2020-04-22] MEDS: CALCIUM CARBONATE 500 MG TABLET GT SCH ×2 (09:07→21:27)
[2020-04-22] MEDS: NEOMY/BACITRA/POLYMYXIN B OINT UD PACKET TP SCH ×2 (09:07→21:29)
[2020-04-22] MEDS: Z GUARD REMEDY PASTE 57 GM TUBE TOP SCH ×2 (09:07→21:29)
[2020-04-22] MEDS: NUTRISOURCE FIBER 4 GM PACKET GT SCH ×2 (09:07→21:26)
[2020-04-22] MEDS: DOCUSATE SODIUM 100 MG/10 ML LIQUID UDC GT SCH (09:07)
[2020-04-22] MEDS: COD LIVER OIL/ZINC OXIDE OINT 113 GM TUBE TP SCH ×2 (09:07→21:29)
[2020-04-22 20:11] VITALS: BP 115/74
[2020-04-22] MEDS: ATORVASTATIN 10 MG TABLET GT SCH (21:26)
[2020-04-22] MEDS: MULTIVIT, IRON, MIN NO. 8, FA TABLET GT SCH (21:29)
[2020-04-23] MEDS: IPRATROPIUM BROMIDE 0.5 MG/2.5 ML NEBU NEB SCH ×6 (02:50→22:55)
[2020-04-23] MEDS: ALBUTEROL SULFATE 2.5 MG/3 ML NEBU NEB SCH ×6 (02:50→22:55)
[2020-04-23] MEDS: CHOLECALCIFEROL 1,000 UNIT TABLET GT SCH (05:55)
[2020-04-23] MEDS: BUDESONIDE 0.5 MG/2 ML NEBU NEB SCH ×2 (07:37→18:52)
[2020-04-23] MEDS: HYDROGEN PEROXIDE 3% 118 ML BOTTLE TP SCH ×2 (07:38→20:35)
[2020-04-23 07:51] VITALS: BP 102/59
[2020-04-23] MEDS: CALCIUM CARBONATE 500 MG TABLET GT SCH ×2 (09:49→21:59)
[2020-04-23] MEDS: NUTRISOURCE FIBER 4 GM PACKET GT SCH ×2 (09:49→21:59)
[2020-04-23] MEDS: NEOMY/BACITRA/POLYMYXIN B OINT UD PACKET TP SCH ×2 (09:49→21:59)
[2020-04-23] MEDS: BACLOFEN 10 MG TABLET GT SCH ×2 (09:49→21:59)
[2020-04-23] MEDS: COD LIVER OIL/ZINC OXIDE OINT 113 GM TUBE TP SCH ×2 (09:49→21:59)
[2020-04-23] MEDS: DOCUSATE SODIUM 100 MG/10 ML LIQUID UDC GT SCH (09:49)
[2020-04-23] MEDS: Z GUARD REMEDY PASTE 57 GM TUBE TOP SCH ×2 (09:49→21:59)
[2020-04-23] MEDS: JEVITY 1.2 1000 ML LIQUID GT PRN (09:51)
[2020-04-23 20:14] VITALS: BP 100/58
[2020-04-23] MEDS: ATORVASTATIN 10 MG TABLET GT SCH (21:59)
[2020-04-23] MEDS: MIRALAX 17 GM POWD.PACK GT SCH (21:59)
[2020-04-24] MEDS: IPRATROPIUM BROMIDE 0.5 MG/2.5 ML NEBU NEB SCH ×6 (02:59→23:01)
[2020-04-24] MEDS: ALBUTEROL SULFATE 2.5 MG/3 ML NEBU NEB SCH ×6 (02:59→23:01)
[2020-04-24] MEDS: CHOLECALCIFEROL 1,000 UNIT TABLET GT SCH (06:03)
[2020-04-24] MEDS: BUDESONIDE 0.5 MG/2 ML NEBU NEB SCH ×2 (07:00→19:02)
[2020-04-24 08:03] VITALS: BP 137/66
[2020-04-24] MEDS: HYDROGEN PEROXIDE 3% 118 ML BOTTLE TP SCH ×2 (09:00→21:02)
[2020-04-24] MEDS: BACLOFEN 10 MG TABLET GT SCH ×2 (09:20→20:33)
[2020-04-24] MEDS: DOCUSATE SODIUM 100 MG/10 ML LIQUID UDC GT SCH (09:20)
[2020-04-24] MEDS: Z GUARD REMEDY PASTE 57 GM TUBE TOP SCH ×2 (09:20→20:34)
[2020-04-24] MEDS: NUTRISOURCE FIBER 4 GM PACKET GT SCH ×2 (09:20→20:33)
[2020-04-24] MEDS: CALCIUM CARBONATE 500 MG TABLET GT SCH ×2 (09:20→20:33)
[2020-04-24] MEDS: COD LIVER OIL/ZINC OXIDE OINT 113 GM TUBE TP SCH ×2 (09:20→20:34)
[2020-04-24] MEDS: JEVITY 1.2 1000 ML LIQUID GT PRN (13:03)
[2020-04-24 20:00] VITALS: BP 119/79
[2020-04-24] MEDS: MULTIVIT, IRON, MIN NO. 8, FA TABLET GT SCH (20:33)
[2020-04-24] MEDS: ATORVASTATIN 10 MG TABLET GT SCH (20:33)
[2020-04-25] MEDS: ALBUTEROL SULFATE 2.5 MG/3 ML NEBU NEB SCH ×6 (02:31→23:11)
[2020-04-25] MEDS: IPRATROPIUM BROMIDE 0.5 MG/2.5 ML NEBU NEB SCH ×6 (02:31→23:11)
[2020-04-25] MEDS: CHOLECALCIFEROL 1,000 UNIT TABLET GT SCH (06:30)
[2020-04-25] MEDS: BUDESONIDE 0.5 MG/2 ML NEBU NEB SCH ×2 (07:00→20:05)
[2020-04-25 07:56] VITALS: BP 105/74
[2020-04-25] MEDS: Z GUARD REMEDY PASTE 57 GM TUBE TOP SCH ×2 (08:33→21:45)
[2020-04-25] MEDS: BACLOFEN 10 MG TABLET GT SCH ×2 (08:33→21:43)
[2020-04-25] MEDS: COD LIVER OIL/ZINC OXIDE OINT 113 GM TUBE TP SCH ×2 (08:33→21:46)
[2020-04-25] MEDS: DOCUSATE SODIUM 100 MG/10 ML LIQUID UDC GT SCH (08:33)
[2020-04-25] MEDS: NUTRISOURCE FIBER 4 GM PACKET GT SCH ×2 (08:33→21:43)
[2020-04-25] MEDS: CALCIUM CARBONATE 500 MG TABLET GT SCH ×2 (08:33→21:44)
[2020-04-25] MEDS: HYDROGEN PEROXIDE 3% 118 ML BOTTLE TP SCH ×2 (09:20→21:00)
[2020-04-25 20:45] VITALS: BP 110/70
[2020-04-25] MEDS: ATORVASTATIN 10 MG TABLET GT SCH (21:43)
[2020-04-26] MEDS: IPRATROPIUM BROMIDE 0.5 MG/2.5 ML NEBU NEB SCH ×6 (03:11→22:49)
[2020-04-26] MEDS: ALBUTEROL SULFATE 2.5 MG/3 ML NEBU NEB SCH ×6 (03:11→22:50)
[2020-04-26] MEDS: CHOLECALCIFEROL 1,000 UNIT TABLET GT SCH (06:05)
[2020-04-26] MEDS: BUDESONIDE 0.5 MG/2 ML NEBU NEB SCH ×2 (07:05→19:50)
[2020-04-26 07:48] VITALS: BP 133/76
[2020-04-26] MEDS: DOCUSATE SODIUM 100 MG/10 ML LIQUID UDC GT SCH (08:30)
[2020-04-26] MEDS: NUTRISOURCE FIBER 4 GM PACKET GT SCH ×2 (08:30→21:53)
[2020-04-26] MEDS: BACLOFEN 10 MG TABLET GT SCH ×2 (08:30→21:47)
[2020-04-26] MEDS: COD LIVER OIL/ZINC OXIDE OINT 113 GM TUBE TP SCH ×2 (08:31→21:55)
[2020-04-26] MEDS: CALCIUM CARBONATE 500 MG TABLET GT SCH ×2 (08:31→21:54)
[2020-04-26] MEDS: Z GUARD REMEDY PASTE 57 GM TUBE TOP SCH ×2 (08:31→21:55)
[2020-04-26] MEDS: HYDROGEN PEROXIDE 3% 118 ML BOTTLE TP SCH ×2 (09:33→20:35)
[2020-04-26] MEDS: JEVITY 1.2 1000 ML LIQUID GT PRN (16:58)
[2020-04-26 20:26] VITALS: BP 130/74
[2020-04-26] MEDS: ATORVASTATIN 10 MG TABLET GT SCH (21:47)
[2020-04-26] MEDS: MIRALAX 17 GM POWD.PACK GT SCH (21:48)
[2020-04-26] MEDS: MULTIVIT, IRON, MIN NO. 8, FA TABLET GT SCH (21:54)
[2020-04-27] MEDS: IPRATROPIUM BROMIDE 0.5 MG/2.5 ML NEBU NEB SCH ×6 (02:50→22:50)
[2020-04-27] MEDS: ALBUTEROL SULFATE 2.5 MG/3 ML NEBU NEB SCH ×6 (02:50→22:50)
[2020-04-27] MEDS: CHOLECALCIFEROL 1,000 UNIT TABLET GT SCH (05:57)
[2020-04-27] MEDS: BUDESONIDE 0.5 MG/2 ML NEBU NEB SCH ×2 (07:05→19:45)
[2020-04-27] MEDS: HYDROGEN PEROXIDE 3% 118 ML BOTTLE TP SCH ×2 (07:05→21:11)
[2020-04-27 07:29] VITALS: BP 97/76
[2020-04-27] MEDS: DOCUSATE SODIUM 100 MG/10 ML LIQUID UDC GT SCH (08:40)
[2020-04-27] MEDS: NUTRISOURCE FIBER 4 GM PACKET GT SCH ×2 (08:43→21:55)
[2020-04-27] MEDS: CALCIUM CARBONATE 500 MG TABLET GT SCH ×2 (08:43→21:55)
[2020-04-27] MEDS: BACLOFEN 10 MG TABLET GT SCH ×2 (08:43→21:55)
[2020-04-27] MEDS: COD LIVER OIL/ZINC OXIDE OINT 113 GM TUBE TP SCH ×2 (08:44→21:55)
[2020-04-27] MEDS: Z GUARD REMEDY PASTE 57 GM TUBE TOP SCH ×2 (08:44→21:55)
[2020-04-27] MEDS: JEVITY 1.2 1000 ML LIQUID GT PRN (19:03)
[2020-04-27 20:11] VITALS: BP 123/93
[2020-04-27] MEDS: ATORVASTATIN 10 MG TABLET GT SCH (21:55)
[2020-04-28] MEDS: IPRATROPIUM BROMIDE 0.5 MG/2.5 ML NEBU NEB SCH ×6 (02:50→23:13)
[2020-04-28] MEDS: ALBUTEROL SULFATE 2.5 MG/3 ML NEBU NEB SCH ×6 (02:50→23:13)
[2020-04-28] MEDS: CHOLECALCIFEROL 1,000 UNIT TABLET GT SCH (06:05)
[2020-04-28] MEDS: BUDESONIDE 0.5 MG/2 ML NEBU NEB SCH ×2 (07:12→19:46)
[2020-04-28 07:47] VITALS: BP 124/63
[2020-04-28] MEDS: HYDROGEN PEROXIDE 3% 118 ML BOTTLE TP SCH ×2 (08:15→20:30)
[2020-04-28] MEDS: DOCUSATE SODIUM 100 MG/10 ML LIQUID UDC GT SCH (08:55)
[2020-04-28] MEDS: NUTRISOURCE FIBER 4 GM PACKET GT SCH ×2 (08:57→21:00)
[2020-04-28] MEDS: Z GUARD REMEDY PASTE 57 GM TUBE TOP SCH ×2 (08:57→21:00)
[2020-04-28] MEDS: COD LIVER OIL/ZINC OXIDE OINT 113 GM TUBE TP SCH ×2 (08:57→21:00)
[2020-04-28] MEDS: CALCIUM CARBONATE 500 MG TABLET GT SCH ×2 (08:57→21:00)
[2020-04-28] MEDS: BACLOFEN 10 MG TABLET GT SCH ×2 (08:57→21:00)
[2020-04-28] MEDS: JEVITY 1.2 1000 ML LIQUID GT PRN (17:35)
[2020-04-28 20:00] VITALS: BP 137/93
[2020-04-28] MEDS: MULTIVIT, IRON, MIN NO. 8, FA TABLET GT SCH (21:00)
[2020-04-28] MEDS: MIRALAX 17 GM POWD.PACK GT SCH (21:00)
[2020-04-28] MEDS: ATORVASTATIN 10 MG TABLET GT SCH (21:00)
--- NOTE | 2020-04-28 21:05 | NUR ---
Patient's sister Dione called re:COVID-19 test result and informed her it was negative.
[2020-04-29] MEDS: ALBUTEROL SULFATE 2.5 MG/3 ML NEBU NEB SCH ×6 (02:58→23:03)
[2020-04-29] MEDS: IPRATROPIUM BROMIDE 0.5 MG/2.5 ML NEBU NEB SCH ×6 (02:58→23:02)
[2020-04-29] MEDS: CHOLECALCIFEROL 1,000 UNIT TABLET GT SCH (06:18)
[2020-04-29] MEDS: BUDESONIDE 0.5 MG/2 ML NEBU NEB SCH ×2 (07:02→19:39)
[2020-04-29] MEDS: HYDROGEN PEROXIDE 3% 118 ML BOTTLE TP SCH ×2 (07:02→20:25)
[2020-04-29 07:41] VITALS: BP 113/64
[2020-04-29] MEDS: BACLOFEN 10 MG TABLET GT SCH ×2 (08:39→21:44)
[2020-04-29] MEDS: CALCIUM CARBONATE 500 MG TABLET GT SCH ×2 (08:39→21:45)
[2020-04-29] MEDS: DOCUSATE SODIUM 100 MG/10 ML LIQUID UDC GT SCH (08:39)
[2020-04-29] MEDS: NUTRISOURCE FIBER 4 GM PACKET GT SCH ×2 (08:39→21:44)
[2020-04-29] MEDS: Z GUARD REMEDY PASTE 57 GM TUBE TOP SCH ×2 (08:39→21:45)
[2020-04-29] MEDS: COD LIVER OIL/ZINC OXIDE OINT 113 GM TUBE TP SCH ×2 (08:39→21:45)
--- NOTE | 2020-04-29 08:45 | NUR ---
SEEN BY DR. REAVES AND WITH NNO.
--- NOTE | 2020-04-29 11:04 | NUR ---
NOTED WITH LEFT BUTTOCK EXCORIATION TODAY WITH SOME PALPABLE INDURATION ,PT. ON AIR MATTRESS,NEW ORDER CARRIED OUT FOR WOUND CARE CONSULT.
--- NOTE | 2020-04-29 11:12 | NUR ---
MESSAGE LEFT TO ROSIE PRAKASH WOUND CARE NURSE AND AWAITING FOR CALL BACK.
[2020-04-29 20:00] VITALS: BP 109/71
[2020-04-29] MEDS: ATORVASTATIN 10 MG TABLET GT SCH (21:44)
[2020-04-30] MEDS: IPRATROPIUM BROMIDE 0.5 MG/2.5 ML NEBU NEB SCH ×6 (02:53→22:58)
[2020-04-30] MEDS: ALBUTEROL SULFATE 2.5 MG/3 ML NEBU NEB SCH ×6 (02:53→22:58)
[2020-04-30] MEDS: CHOLECALCIFEROL 1,000 UNIT TABLET GT SCH (05:58)
[2020-04-30] MEDS: BUDESONIDE 0.5 MG/2 ML NEBU NEB SCH ×2 (07:08→18:45)
[2020-04-30] MEDS: HYDROGEN PEROXIDE 3% 118 ML BOTTLE TP SCH ×2 (07:08→20:43)
[2020-04-30 07:37] VITALS: BP 112/68
[2020-04-30] MEDS: DOCUSATE SODIUM 100 MG/10 ML LIQUID UDC GT SCH (09:48)
[2020-04-30] MEDS: BACLOFEN 10 MG TABLET GT SCH ×2 (09:48→21:50)
[2020-04-30] MEDS: COD LIVER OIL/ZINC OXIDE OINT 113 GM TUBE TP SCH ×3 (09:49→21:51)
[2020-04-30] MEDS: CALCIUM CARBONATE 500 MG TABLET GT SCH ×2 (09:49→21:50)
[2020-04-30] MEDS: Z GUARD REMEDY PASTE 57 GM TUBE TOP SCH ×2 (09:49→21:50)
[2020-04-30] MEDS: NUTRISOURCE FIBER 4 GM PACKET GT SCH ×2 (09:49→21:50)
--- NOTE | 2020-04-30 11:00 | NUR ---
Pt. observed with episode of vaginal bleeding,otherwise asymptomatic and with out distress,will cont. to monitor.
--- NOTE | 2020-04-30 11:53 | NUR ---
WOUND CARE CONSULT: PT SEEN FOR RASH WITH OPEN SKIN TO LEFT BUTTOCK. RECOMMEND LOTRIMIN, FOLLOW WITH DESITIN AND COVER WITH MEPILEX. SKIN TO BE KEPT CLEAN AND DRY. DISCUSSED WITH NURSING STAFF. WILL SEE PRDez RAHMAN IN AGREEMENT WITH PLAN OF CARE.
--- NOTE | 2020-04-30 11:59 | NUR ---
PT. WAS SEEN AND EXAMINED BY JONEL WOUND CARE NURSE AND WITH NEW ORDERS CARRIED OUT.
[2020-04-30] MEDS: JEVITY 1.2 1000 ML LIQUID GT PRN (18:14)
[2020-04-30 20:00] VITALS: BP 119/86
[2020-04-30] MEDS: MIRALAX 17 GM POWD.PACK GT SCH (21:50)
[2020-04-30] MEDS: ATORVASTATIN 10 MG TABLET GT SCH (21:50)
[2020-04-30] MEDS: MULTIVIT, IRON, MIN NO. 8, FA TABLET GT SCH (21:50)
[2020-04-30] MEDS: CLOTRIMAZOLE 1% CREAM 30 GM TUBE TP SCH (21:51)
[2020-05-01] MEDS: ALBUTEROL SULFATE 2.5 MG/3 ML NEBU NEB SCH ×6 (02:57→22:50)
[2020-05-01] MEDS: IPRATROPIUM BROMIDE 0.5 MG/2.5 ML NEBU NEB SCH ×6 (02:57→22:50)
[2020-05-01] MEDS: CHOLECALCIFEROL 1,000 UNIT TABLET GT SCH (07:00)
[2020-05-01] MEDS: BUDESONIDE 0.5 MG/2 ML NEBU NEB SCH ×2 (07:05→19:55)
[2020-05-01] MEDS: HYDROGEN PEROXIDE 3% 118 ML BOTTLE TP SCH ×2 (07:05→21:30)
[2020-05-01 08:01] VITALS: BP 122/77
[2020-05-01] MEDS: CALCIUM CARBONATE 500 MG TABLET GT SCH ×2 (09:16→21:00)
[2020-05-01] MEDS: DOCUSATE SODIUM 100 MG/10 ML LIQUID UDC GT SCH (09:16)
[2020-05-01] MEDS: NUTRISOURCE FIBER 4 GM PACKET GT SCH ×2 (09:16→21:00)
[2020-05-01] MEDS: COD LIVER OIL/ZINC OXIDE OINT 113 GM TUBE TP SCH ×4 (09:16→21:00)
[2020-05-01] MEDS: Z GUARD REMEDY PASTE 57 GM TUBE TOP SCH ×2 (09:16→21:00)
[2020-05-01] MEDS: BACLOFEN 10 MG TABLET GT SCH ×2 (09:16→21:00)
[2020-05-01] MEDS: CLOTRIMAZOLE 1% CREAM 30 GM TUBE TP SCH ×2 (09:17→21:00)
[2020-05-01 20:06] VITALS: BP 129/70
[2020-05-01] MEDS: ATORVASTATIN 10 MG TABLET GT SCH (21:00)
[2020-05-01] MEDS: JEVITY 1.2 1000 ML LIQUID GT PRN (22:50)
[2020-05-02] MEDS: IPRATROPIUM BROMIDE 0.5 MG/2.5 ML NEBU NEB SCH ×6 (02:50→22:50)
[2020-05-02] MEDS: ALBUTEROL SULFATE 2.5 MG/3 ML NEBU NEB SCH ×6 (02:50→22:50)
[2020-05-02] MEDS: CHOLECALCIFEROL 1,000 UNIT TABLET GT SCH (06:13)
[2020-05-02] MEDS: HYDROGEN PEROXIDE 3% 118 ML BOTTLE TP SCH ×2 (07:05→20:05)
[2020-05-02] MEDS: BUDESONIDE 0.5 MG/2 ML NEBU NEB SCH ×2 (07:13→19:58)
[2020-05-02 08:00] VITALS: BP 133/90
[2020-05-02] MEDS: CALCIUM CARBONATE 500 MG TABLET GT SCH ×2 (08:34→20:04)
[2020-05-02] MEDS: NUTRISOURCE FIBER 4 GM PACKET GT SCH ×2 (08:34→20:04)
[2020-05-02] MEDS: DOCUSATE SODIUM 100 MG/10 ML LIQUID UDC GT SCH (08:34)
[2020-05-02] MEDS: Z GUARD REMEDY PASTE 57 GM TUBE TOP SCH ×2 (08:34→20:04)
[2020-05-02] MEDS: CLOTRIMAZOLE 1% CREAM 30 GM TUBE TP SCH ×2 (08:34→20:05)
[2020-05-02] MEDS: COD LIVER OIL/ZINC OXIDE OINT 113 GM TUBE TP SCH ×4 (08:34→20:05)
[2020-05-02] MEDS: BACLOFEN 10 MG TABLET GT SCH ×2 (08:34→20:04)
[2020-05-02] MEDS: ATORVASTATIN 10 MG TABLET GT SCH (20:04)
[2020-05-02] MEDS: MULTIVIT, IRON, MIN NO. 8, FA TABLET GT SCH (20:04)
[2020-05-02 20:12] VITALS: BP 118/78
[2020-05-02] MEDS: JEVITY 1.2 1000 ML LIQUID GT PRN (22:08)
[2020-05-02] MEDS: ACETAMINOPHEN 650 MG/20 ML UDC- SA PATIENTS-PAIN ONLY GT PRN (22:47)
[2020-05-03] MEDS: IPRATROPIUM BROMIDE 0.5 MG/2.5 ML NEBU NEB SCH ×6 (02:50→22:50)
[2020-05-03] MEDS: ALBUTEROL SULFATE 2.5 MG/3 ML NEBU NEB SCH ×6 (02:50→22:50)
[2020-05-03] MEDS: CHOLECALCIFEROL 1,000 UNIT TABLET GT SCH (05:31)
[2020-05-03 07:42] VITALS: BP 90/58
[2020-05-03] MEDS: BUDESONIDE 0.5 MG/2 ML NEBU NEB SCH ×2 (07:44→19:51)
[2020-05-03] MEDS: BACLOFEN 10 MG TABLET GT SCH ×2 (08:30→21:31)
[2020-05-03] MEDS: DOCUSATE SODIUM 100 MG/10 ML LIQUID UDC GT SCH (08:30)
[2020-05-03] MEDS: NUTRISOURCE FIBER 4 GM PACKET GT SCH ×2 (08:31→21:31)
[2020-05-03] MEDS: CALCIUM CARBONATE 500 MG TABLET GT SCH ×2 (08:32→21:32)
[2020-05-03] MEDS: COD LIVER OIL/ZINC OXIDE OINT 113 GM TUBE TP SCH ×4 (08:36→21:32)
[2020-05-03] MEDS: Z GUARD REMEDY PASTE 57 GM TUBE TOP SCH ×2 (08:36→21:32)
[2020-05-03] MEDS: CLOTRIMAZOLE 1% CREAM 30 GM TUBE TP SCH ×2 (08:40→21:32)
[2020-05-03] MEDS: HYDROGEN PEROXIDE 3% 118 ML BOTTLE TP SCH ×2 (09:00→21:24)
--- NOTE | 2020-05-03 17:59 | NUR ---
PT. OBSERVED WITH VAGINAL BLEEDING SMALL AND WILL MONITOR AND NOTIFY MD IN AM.GOOD PERINEAL CARE PROVIDED.
[2020-05-03 20:26] VITALS: BP 99/52
[2020-05-03] MEDS: MIRALAX 17 GM POWD.PACK GT SCH (21:31)
[2020-05-03] MEDS: ATORVASTATIN 10 MG TABLET GT SCH (21:31)
[2020-05-04] MEDS: JEVITY 1.2 1000 ML LIQUID GT PRN (01:06)
[2020-05-04] MEDS: ALBUTEROL SULFATE 2.5 MG/3 ML NEBU NEB SCH ×6 (02:50→22:55)
[2020-05-04] MEDS: IPRATROPIUM BROMIDE 0.5 MG/2.5 ML NEBU NEB SCH ×6 (02:50→22:55)
[2020-05-04] MEDS: CHOLECALCIFEROL 1,000 UNIT TABLET GT SCH (05:30)
[2020-05-04] MEDS: BUDESONIDE 0.5 MG/2 ML NEBU NEB SCH ×2 (07:13→18:48)
[2020-05-04 07:24] VITALS: BP 89/50
[2020-05-04] MEDS: DOCUSATE SODIUM 100 MG/10 ML LIQUID UDC GT SCH (08:23)
[2020-05-04] MEDS: CALCIUM CARBONATE 500 MG TABLET GT SCH ×2 (08:26→20:39)
[2020-05-04] MEDS: BACLOFEN 10 MG TABLET GT SCH ×2 (08:26→20:39)
[2020-05-04] MEDS: Z GUARD REMEDY PASTE 57 GM TUBE TOP SCH ×2 (08:26→20:39)
[2020-05-04] MEDS: NUTRISOURCE FIBER 4 GM PACKET GT SCH ×2 (08:26→20:39)
[2020-05-04] MEDS: CLOTRIMAZOLE 1% CREAM 30 GM TUBE TP SCH ×2 (08:27→20:39)
[2020-05-04] MEDS: COD LIVER OIL/ZINC OXIDE OINT 113 GM TUBE TP SCH ×4 (08:27→20:39)
[2020-05-04] MEDS: HYDROGEN PEROXIDE 3% 118 ML BOTTLE TP SCH ×2 (09:41→20:49)
--- NOTE | 2020-05-04 15:14 | NUR ---
INTERDISCIPLINARY PLAN OF CARE CONFERENCE was held today. Patient's family lives [id number] and they do not participate in the IDT meetings, however are available by phone if necessary. Dr. Underwood and the Interdisciplinary Team reviewed the current plan of care in detail. RN reported on patient's medical condition, and on findings of most recent labs. See RN IDT conference notes. No major changes in medical condition were reported by nursing or by other disciplines. See all other disciplines IDT notes and physician's progress notes for additional details.
[2020-05-04] MEDS: ATORVASTATIN 10 MG TABLET GT SCH (20:39)
[2020-05-04] MEDS: MULTIVIT, IRON, MIN NO. 8, FA TABLET GT SCH (20:39)
[2020-05-04 20:45] VITALS: BP 115/72
[2020-05-05] MEDS: ALBUTEROL SULFATE 2.5 MG/3 ML NEBU NEB SCH ×6 (02:43→22:35)
[2020-05-05] MEDS: IPRATROPIUM BROMIDE 0.5 MG/2.5 ML NEBU NEB SCH ×6 (02:43→22:35)
[2020-05-05] MEDS: JEVITY 1.2 1000 ML LIQUID GT PRN (06:00)
[2020-05-05] MEDS: CHOLECALCIFEROL 1,000 UNIT TABLET GT SCH (06:00)
[2020-05-05] MEDS: HYDROGEN PEROXIDE 3% 118 ML BOTTLE TP SCH ×2 (07:10→18:43)
[2020-05-05] MEDS: BUDESONIDE 0.5 MG/2 ML NEBU NEB SCH ×2 (07:10→18:43)
[2020-05-05] MEDS: DOCUSATE SODIUM 100 MG/10 ML LIQUID UDC GT SCH (08:31)
[2020-05-05] MEDS: CALCIUM CARBONATE 500 MG TABLET GT SCH ×2 (08:32→20:08)
[2020-05-05] MEDS: NUTRISOURCE FIBER 4 GM PACKET GT SCH ×2 (08:32→20:07)
[2020-05-05] MEDS: BACLOFEN 10 MG TABLET GT SCH ×2 (08:32→20:07)
[2020-05-05] MEDS: COD LIVER OIL/ZINC OXIDE OINT 113 GM TUBE TP SCH ×4 (08:33→20:08)
[2020-05-05] MEDS: Z GUARD REMEDY PASTE 57 GM TUBE TOP SCH ×2 (08:33→20:08)
[2020-05-05] MEDS: CLOTRIMAZOLE 1% CREAM 30 GM TUBE TP SCH ×2 (09:00→20:08)
[2020-05-05] MEDS: MIRALAX 17 GM POWD.PACK GT SCH (20:07)
[2020-05-05] MEDS: ATORVASTATIN 10 MG TABLET GT SCH (20:07)
[2020-05-05 20:37] VITALS: BP 109/61
[2020-05-06] MEDS: ALBUTEROL SULFATE 2.5 MG/3 ML NEBU NEB SCH ×6 (02:35→22:35)
[2020-05-06] MEDS: IPRATROPIUM BROMIDE 0.5 MG/2.5 ML NEBU NEB SCH ×6 (02:35→22:35)
[2020-05-06] MEDS: CHOLECALCIFEROL 1,000 UNIT TABLET GT SCH (05:32)
[2020-05-06] MEDS: JEVITY 1.2 1000 ML LIQUID GT PRN (05:33)
[2020-05-06] MEDS: BUDESONIDE 0.5 MG/2 ML NEBU NEB SCH ×2 (07:20→18:45)
[2020-05-06 07:34] VITALS: BP 108/76
--- NOTE | 2020-05-06 07:35 | NUR ---
SEE RESPIRATORY PROGRESS NOTE.
[2020-05-06] MEDS: DOCUSATE SODIUM 100 MG/10 ML LIQUID UDC GT SCH (08:23)
[2020-05-06] MEDS: BACLOFEN 10 MG TABLET GT SCH ×2 (08:23→21:07)
[2020-05-06] MEDS: COD LIVER OIL/ZINC OXIDE OINT 113 GM TUBE TP SCH ×4 (08:24→21:07)
[2020-05-06] MEDS: Z GUARD REMEDY PASTE 57 GM TUBE TOP SCH ×2 (08:24→21:07)
[2020-05-06] MEDS: CALCIUM CARBONATE 500 MG TABLET GT SCH ×2 (08:24→21:07)
[2020-05-06] MEDS: NUTRISOURCE FIBER 4 GM PACKET GT SCH ×2 (08:24→21:07)
[2020-05-06] MEDS: HYDROGEN PEROXIDE 3% 118 ML BOTTLE TP SCH ×2 (08:35→18:45)
[2020-05-06] MEDS: CLOTRIMAZOLE 1% CREAM 30 GM TUBE TP SCH ×2 (09:00→21:08)
[2020-05-06 20:17] VITALS: BP 139/58
[2020-05-06] MEDS: ATORVASTATIN 10 MG TABLET GT SCH (21:07)
[2020-05-06] MEDS: MULTIVIT, IRON, MIN NO. 8, FA TABLET GT SCH (21:07)
[2020-05-07] MEDS: IPRATROPIUM BROMIDE 0.5 MG/2.5 ML NEBU NEB SCH ×6 (02:33→22:46)
[2020-05-07] MEDS: ALBUTEROL SULFATE 2.5 MG/3 ML NEBU NEB SCH ×6 (02:33→22:46)
[2020-05-07] MEDS: CHOLECALCIFEROL 1,000 UNIT TABLET GT SCH (05:31)
[2020-05-07] MEDS: BUDESONIDE 0.5 MG/2 ML NEBU NEB SCH ×2 (07:08→19:44)
[2020-05-07 07:33] VITALS: BP 123/71
[2020-05-07] MEDS: HYDROGEN PEROXIDE 3% 118 ML BOTTLE TP SCH ×2 (08:50→21:09)
[2020-05-07] MEDS: DOCUSATE SODIUM 100 MG/10 ML LIQUID UDC GT SCH (08:55)
[2020-05-07] MEDS: Z GUARD REMEDY PASTE 57 GM TUBE TOP SCH ×2 (08:56→21:48)
[2020-05-07] MEDS: CALCIUM CARBONATE 500 MG TABLET GT SCH ×2 (08:56→21:47)
[2020-05-07] MEDS: NUTRISOURCE FIBER 4 GM PACKET GT SCH ×2 (08:56→21:47)
[2020-05-07] MEDS: BACLOFEN 10 MG TABLET GT SCH ×2 (08:56→21:46)
[2020-05-07] MEDS: COD LIVER OIL/ZINC OXIDE OINT 113 GM TUBE TP SCH ×4 (09:00→21:48)
[2020-05-07] MEDS: CLOTRIMAZOLE 1% CREAM 30 GM TUBE TP SCH ×2 (09:00→21:48)
[2020-05-07 20:13] VITALS: BP 149/83
[2020-05-07] MEDS: ATORVASTATIN 10 MG TABLET GT SCH (21:47)
[2020-05-07] MEDS: MIRALAX 17 GM POWD.PACK GT SCH (21:47)
[2020-05-08] MEDS: IPRATROPIUM BROMIDE 0.5 MG/2.5 ML NEBU NEB SCH ×6 (02:58→22:51)
[2020-05-08] MEDS: ALBUTEROL SULFATE 2.5 MG/3 ML NEBU NEB SCH ×6 (02:59→22:51)
[2020-05-08] MEDS: CHOLECALCIFEROL 1,000 UNIT TABLET GT SCH (05:59)
[2020-05-08] MEDS: BUDESONIDE 0.5 MG/2 ML NEBU NEB SCH ×2 (07:00→19:51)
[2020-05-08 08:04] VITALS: BP 103/58
[2020-05-08] MEDS: BACLOFEN 10 MG TABLET GT SCH ×2 (08:20→21:06)
[2020-05-08] MEDS: DOCUSATE SODIUM 100 MG/10 ML LIQUID UDC GT SCH (08:20)
[2020-05-08] MEDS: NUTRISOURCE FIBER 4 GM PACKET GT SCH ×2 (08:21→21:06)
[2020-05-08] MEDS: CALCIUM CARBONATE 500 MG TABLET GT SCH ×2 (08:21→21:06)
[2020-05-08] MEDS: Z GUARD REMEDY PASTE 57 GM TUBE TOP SCH ×2 (08:22→21:07)
[2020-05-08] MEDS: COD LIVER OIL/ZINC OXIDE OINT 113 GM TUBE TP SCH ×4 (08:23→21:07)
[2020-05-08] MEDS: CLOTRIMAZOLE 1% CREAM 30 GM TUBE TP SCH ×2 (08:25→21:07)
[2020-05-08] MEDS: HYDROGEN PEROXIDE 3% 118 ML BOTTLE TP SCH ×2 (09:31→20:50)
[2020-05-08 20:05] VITALS: BP 110/54
[2020-05-08] MEDS: ATORVASTATIN 10 MG TABLET GT SCH (21:06)
[2020-05-08] MEDS: MULTIVIT, IRON, MIN NO. 8, FA TABLET GT SCH (21:07)
[2020-05-08] MEDS: JEVITY 1.2 1000 ML LIQUID GT PRN (21:38)
[2020-05-09] MEDS: ALBUTEROL SULFATE 2.5 MG/3 ML NEBU NEB SCH ×6 (02:50→22:50)
[2020-05-09] MEDS: IPRATROPIUM BROMIDE 0.5 MG/2.5 ML NEBU NEB SCH ×6 (02:50→22:50)
[2020-05-09] MEDS: CHOLECALCIFEROL 1,000 UNIT TABLET GT SCH (05:44)
[2020-05-09] MEDS: BUDESONIDE 0.5 MG/2 ML NEBU NEB SCH ×2 (07:12→19:51)
[2020-05-09 07:47] VITALS: BP 106/75
[2020-05-09] MEDS: DOCUSATE SODIUM 100 MG/10 ML LIQUID UDC GT SCH (08:22)
[2020-05-09] MEDS: NUTRISOURCE FIBER 4 GM PACKET GT SCH ×2 (08:23→20:25)
[2020-05-09] MEDS: CLOTRIMAZOLE 1% CREAM 30 GM TUBE TP SCH ×2 (08:23→20:26)
[2020-05-09] MEDS: CALCIUM CARBONATE 500 MG TABLET GT SCH ×2 (08:23→20:25)
[2020-05-09] MEDS: BACLOFEN 10 MG TABLET GT SCH ×2 (08:23→20:25)
[2020-05-09] MEDS: Z GUARD REMEDY PASTE 57 GM TUBE TOP SCH ×2 (08:23→20:25)
[2020-05-09] MEDS: COD LIVER OIL/ZINC OXIDE OINT 113 GM TUBE TP SCH ×4 (08:23→20:26)
[2020-05-09] MEDS: HYDROGEN PEROXIDE 3% 118 ML BOTTLE TP SCH ×2 (09:00→21:25)
[2020-05-09 20:06] VITALS: BP 132/77
[2020-05-09] MEDS: ATORVASTATIN 10 MG TABLET GT SCH (20:25)
[2020-05-10] MEDS: IPRATROPIUM BROMIDE 0.5 MG/2.5 ML NEBU NEB SCH ×6 (02:50→22:50)
[2020-05-10] MEDS: ALBUTEROL SULFATE 2.5 MG/3 ML NEBU NEB SCH ×6 (02:50→22:50)
[2020-05-10] MEDS: CHOLECALCIFEROL 1,000 UNIT TABLET GT SCH (06:35)
[2020-05-10] MEDS: BUDESONIDE 0.5 MG/2 ML NEBU NEB SCH ×2 (07:05→19:55)
[2020-05-10 07:31] VITALS: BP 128/83
[2020-05-10] MEDS: HYDROGEN PEROXIDE 3% 118 ML BOTTLE TP SCH ×2 (08:03→21:43)
[2020-05-10] MEDS: DOCUSATE SODIUM 100 MG/10 ML LIQUID UDC GT SCH (08:06)
[2020-05-10] MEDS: BACLOFEN 10 MG TABLET GT SCH ×2 (08:07→20:59)
[2020-05-10] MEDS: NUTRISOURCE FIBER 4 GM PACKET GT SCH ×2 (08:07→20:59)
[2020-05-10] MEDS: Z GUARD REMEDY PASTE 57 GM TUBE TOP SCH ×2 (08:08→20:59)
[2020-05-10] MEDS: CALCIUM CARBONATE 500 MG TABLET GT SCH ×2 (08:08→20:59)
[2020-05-10] MEDS: COD LIVER OIL/ZINC OXIDE OINT 113 GM TUBE TP SCH ×4 (08:09→21:00)
[2020-05-10] MEDS: CLOTRIMAZOLE 1% CREAM 30 GM TUBE TP SCH ×2 (08:10→21:00)
[2020-05-10 19:54] VITALS: BP 114/81
[2020-05-10] MEDS: MULTIVIT, IRON, MIN NO. 8, FA TABLET GT SCH (20:59)
[2020-05-10] MEDS: MIRALAX 17 GM POWD.PACK GT SCH (20:59)
[2020-05-10] MEDS: ATORVASTATIN 10 MG TABLET GT SCH (20:59)
[2020-05-11] MEDS: ALBUTEROL SULFATE 2.5 MG/3 ML NEBU NEB SCH ×6 (02:50→22:54)
[2020-05-11] MEDS: IPRATROPIUM BROMIDE 0.5 MG/2.5 ML NEBU NEB SCH ×6 (02:50→22:54)
[2020-05-11] MEDS: CHOLECALCIFEROL 1,000 UNIT TABLET GT SCH (05:54)
[2020-05-11] MEDS: JEVITY 1.2 1000 ML LIQUID GT PRN (05:55)
[2020-05-11] MEDS: BUDESONIDE 0.5 MG/2 ML NEBU NEB SCH ×2 (07:15→18:51)
[2020-05-11 07:24] VITALS: BP 103/47
[2020-05-11] MEDS: HYDROGEN PEROXIDE 3% 118 ML BOTTLE TP SCH ×2 (07:56→20:43)
[2020-05-11] MEDS: DOCUSATE SODIUM 100 MG/10 ML LIQUID UDC GT SCH (08:14)
[2020-05-11] MEDS: NUTRISOURCE FIBER 4 GM PACKET GT SCH ×2 (08:14→21:28)
[2020-05-11] MEDS: BACLOFEN 10 MG TABLET GT SCH ×2 (08:14→21:27)
[2020-05-11] MEDS: CALCIUM CARBONATE 500 MG TABLET GT SCH ×2 (08:15→21:28)
[2020-05-11] MEDS: Z GUARD REMEDY PASTE 57 GM TUBE TOP SCH ×2 (08:15→21:28)
[2020-05-11] MEDS: COD LIVER OIL/ZINC OXIDE OINT 113 GM TUBE TP SCH ×4 (08:15→21:29)
[2020-05-11] MEDS: CLOTRIMAZOLE 1% CREAM 30 GM TUBE TP SCH ×2 (08:15→21:29)
[2020-05-11 20:05] VITALS: BP 117/77
[2020-05-11] MEDS: ATORVASTATIN 10 MG TABLET GT SCH (21:28)
[2020-05-12] MEDS: JEVITY 1.2 1000 ML LIQUID GT PRN (01:27)
[2020-05-12] MEDS: IPRATROPIUM BROMIDE 0.5 MG/2.5 ML NEBU NEB SCH ×5 (02:47→18:49)
[2020-05-12] MEDS: ALBUTEROL SULFATE 2.5 MG/3 ML NEBU NEB SCH ×5 (02:47→18:49)
[2020-05-12] MEDS: CHOLECALCIFEROL 1,000 UNIT TABLET GT SCH (05:45)
[2020-05-12] MEDS: BUDESONIDE 0.5 MG/2 ML NEBU NEB SCH ×2 (07:05→18:49)
[2020-05-12] MEDS: HYDROGEN PEROXIDE 3% 118 ML BOTTLE TP SCH ×2 (07:05→18:49)
[2020-05-12 07:49] VITALS: BP 105/58
[2020-05-12] MEDS: DOCUSATE SODIUM 100 MG/10 ML LIQUID UDC GT SCH (08:45)
[2020-05-12] MEDS: Z GUARD REMEDY PASTE 57 GM TUBE TOP SCH ×2 (08:45→21:59)
[2020-05-12] MEDS: NUTRISOURCE FIBER 4 GM PACKET GT SCH ×2 (08:45→21:55)
[2020-05-12] MEDS: BACLOFEN 10 MG TABLET GT SCH ×2 (08:45→21:55)
[2020-05-12] MEDS: COD LIVER OIL/ZINC OXIDE OINT 113 GM TUBE TP SCH ×4 (08:45→21:59)
[2020-05-12] MEDS: CALCIUM CARBONATE 500 MG TABLET GT SCH ×2 (08:45→21:58)
[2020-05-12] MEDS: CLOTRIMAZOLE 1% CREAM 30 GM TUBE TP SCH ×2 (08:46→21:59)
[2020-05-12 20:06] VITALS: BP 123/77
[2020-05-12] MEDS: ATORVASTATIN 10 MG TABLET GT SCH (21:55)
[2020-05-12] MEDS: MIRALAX 17 GM POWD.PACK GT SCH (21:55)
[2020-05-12] MEDS: MULTIVIT, IRON, MIN NO. 8, FA TABLET GT SCH (21:59)
[2020-05-13] MEDS: IPRATROPIUM BROMIDE 0.5 MG/2.5 ML NEBU NEB SCH ×7 (00:14→22:50)
[2020-05-13] MEDS: ALBUTEROL SULFATE 2.5 MG/3 ML NEBU NEB SCH ×7 (00:14→22:50)
[2020-05-13] MEDS: CHOLECALCIFEROL 1,000 UNIT TABLET GT SCH (05:54)
[2020-05-13] MEDS: HYDROGEN PEROXIDE 3% 118 ML BOTTLE TP SCH ×2 (07:30→21:32)
[2020-05-13] MEDS: BUDESONIDE 0.5 MG/2 ML NEBU NEB SCH ×2 (07:30→19:43)
[2020-05-13 07:50] VITALS: BP 111/66
[2020-05-13 08:00] VITALS: BP 104/53
[2020-05-13] MEDS: BACLOFEN 10 MG TABLET GT SCH ×2 (09:00→21:26)
[2020-05-13] MEDS: DOCUSATE SODIUM 100 MG/10 ML LIQUID UDC GT SCH (09:00)
[2020-05-13] MEDS: COD LIVER OIL/ZINC OXIDE OINT 113 GM TUBE TP SCH ×4 (09:00→21:28)
[2020-05-13] MEDS: NUTRISOURCE FIBER 4 GM PACKET GT SCH ×2 (09:00→21:27)
[2020-05-13] MEDS: CALCIUM CARBONATE 500 MG TABLET GT SCH ×2 (09:00→21:27)
[2020-05-13] MEDS: CLOTRIMAZOLE 1% CREAM 30 GM TUBE TP SCH ×2 (09:00→21:28)
[2020-05-13] MEDS: Z GUARD REMEDY PASTE 57 GM TUBE TOP SCH ×2 (09:00→21:27)
--- NOTE | 2020-05-13 17:29 | NUR ---
SEEN BY DR. DOMINGUEZ AND WITH NNO.
[2020-05-13 20:06] VITALS: BP 117/89
[2020-05-13] MEDS: ATORVASTATIN 10 MG TABLET GT SCH (21:26)
[2020-05-14] MEDS: IPRATROPIUM BROMIDE 0.5 MG/2.5 ML NEBU NEB SCH ×6 (02:55→23:33)
[2020-05-14] MEDS: ALBUTEROL SULFATE 2.5 MG/3 ML NEBU NEB SCH ×6 (02:55→23:33)
[2020-05-14] MEDS: CHOLECALCIFEROL 1,000 UNIT TABLET GT SCH (06:08)
[2020-05-14] MEDS: BUDESONIDE 0.5 MG/2 ML NEBU NEB SCH ×2 (07:21→19:10)
[2020-05-14 07:49] VITALS: BP 131/74
[2020-05-14] MEDS: HYDROGEN PEROXIDE 3% 118 ML BOTTLE TP SCH ×2 (09:28→21:05)
[2020-05-14] MEDS: NUTRISOURCE FIBER 4 GM PACKET GT SCH ×2 (09:48→21:00)
[2020-05-14] MEDS: DOCUSATE SODIUM 100 MG/10 ML LIQUID UDC GT SCH (09:48)
[2020-05-14] MEDS: BACLOFEN 10 MG TABLET GT SCH ×2 (09:48→21:00)
[2020-05-14] MEDS: COD LIVER OIL/ZINC OXIDE OINT 113 GM TUBE TP SCH ×3 (09:49→21:00)
[2020-05-14] MEDS: CALCIUM CARBONATE 500 MG TABLET GT SCH ×2 (09:49→21:00)
[2020-05-14] MEDS: CLOTRIMAZOLE 1% CREAM 30 GM TUBE TP SCH (09:49)
[2020-05-14] MEDS: Z GUARD REMEDY PASTE 57 GM TUBE TOP SCH ×2 (09:49→21:00)
--- NOTE | 2020-05-14 16:09 | NUR ---
SEEN BY DR. REAVES AND WITH NNO.
--- NOTE | 2020-05-14 16:09 | NUR ---
PT. SEEN BY HALINA GREY N.P. AND WITH NNO.
[2020-05-14] MEDS: MULTIVIT, IRON, MIN NO. 8, FA TABLET GT SCH (21:00)
[2020-05-14] MEDS: ATORVASTATIN 10 MG TABLET GT SCH (21:00)
[2020-05-14] MEDS: MIRALAX 17 GM POWD.PACK GT SCH (21:00)
[2020-05-14 22:14] VITALS: BP 109/64
[2020-05-15] MEDS: IPRATROPIUM BROMIDE 0.5 MG/2.5 ML NEBU NEB SCH ×6 (03:44→22:50)
[2020-05-15] MEDS: ALBUTEROL SULFATE 2.5 MG/3 ML NEBU NEB SCH ×6 (03:44→22:50)
[2020-05-15] MEDS: CHOLECALCIFEROL 1,000 UNIT TABLET GT SCH (05:44)
[2020-05-15] MEDS: BUDESONIDE 0.5 MG/2 ML NEBU NEB SCH ×2 (07:01→19:50)
[2020-05-15 07:33] VITALS: BP 110/64
[2020-05-15] MEDS: HYDROGEN PEROXIDE 3% 118 ML BOTTLE TP SCH ×2 (09:00→21:12)
[2020-05-15] MEDS: NUTRISOURCE FIBER 4 GM PACKET GT SCH ×2 (09:12→20:10)
[2020-05-15] MEDS: DOCUSATE SODIUM 100 MG/10 ML LIQUID UDC GT SCH (09:12)
[2020-05-15] MEDS: BACLOFEN 10 MG TABLET GT SCH ×2 (09:12→20:10)
[2020-05-15] MEDS: COD LIVER OIL/ZINC OXIDE OINT 113 GM TUBE TP SCH ×2 (09:13→20:10)
[2020-05-15] MEDS: Z GUARD REMEDY PASTE 57 GM TUBE TOP SCH ×2 (09:13→20:10)
[2020-05-15] MEDS: CALCIUM CARBONATE 500 MG TABLET GT SCH ×2 (09:13→20:10)
[2020-05-15] MEDS: ATORVASTATIN 10 MG TABLET GT SCH (20:10)
[2020-05-15 22:11] VITALS: BP 117/67
[2020-05-16] MEDS: ALBUTEROL SULFATE 2.5 MG/3 ML NEBU NEB SCH ×6 (02:50→22:50)
[2020-05-16] MEDS: IPRATROPIUM BROMIDE 0.5 MG/2.5 ML NEBU NEB SCH ×6 (02:50→22:50)
[2020-05-16] MEDS: CHOLECALCIFEROL 1,000 UNIT TABLET GT SCH (06:00)
[2020-05-16 07:25] VITALS: BP 92/49
[2020-05-16] MEDS: BUDESONIDE 0.5 MG/2 ML NEBU NEB SCH ×2 (07:30→19:51)
[2020-05-16] MEDS: HYDROGEN PEROXIDE 3% 118 ML BOTTLE TP SCH ×2 (07:30→21:09)
[2020-05-16] MEDS: DOCUSATE SODIUM 100 MG/10 ML LIQUID UDC GT SCH (08:18)
[2020-05-16] MEDS: BACLOFEN 10 MG TABLET GT SCH ×2 (08:18→21:02)
[2020-05-16] MEDS: CALCIUM CARBONATE 500 MG TABLET GT SCH ×2 (08:19→21:02)
[2020-05-16] MEDS: NUTRISOURCE FIBER 4 GM PACKET GT SCH ×2 (08:19→21:02)
[2020-05-16] MEDS: Z GUARD REMEDY PASTE 57 GM TUBE TOP SCH ×2 (08:19→21:02)
[2020-05-16] MEDS: COD LIVER OIL/ZINC OXIDE OINT 113 GM TUBE TP SCH ×2 (08:19→21:03)
[2020-05-16] MEDS: MULTIVIT, IRON, MIN NO. 8, FA TABLET GT SCH (21:02)
[2020-05-16] MEDS: ATORVASTATIN 10 MG TABLET GT SCH (21:02)
[2020-05-16 22:14] VITALS: BP 110/74
[2020-05-17] MEDS: ALBUTEROL SULFATE 2.5 MG/3 ML NEBU NEB SCH ×6 (02:51→22:50)
[2020-05-17] MEDS: IPRATROPIUM BROMIDE 0.5 MG/2.5 ML NEBU NEB SCH ×6 (02:51→22:50)
[2020-05-17] MEDS: CHOLECALCIFEROL 1,000 UNIT TABLET GT SCH (05:35)
[2020-05-17] MEDS: JEVITY 1.2 1000 ML LIQUID GT PRN (05:36)
[2020-05-17 07:31] VITALS: BP 97/67
[2020-05-17] MEDS: HYDROGEN PEROXIDE 3% 118 ML BOTTLE TP SCH ×2 (07:31→21:31)
[2020-05-17] MEDS: BUDESONIDE 0.5 MG/2 ML NEBU NEB SCH ×2 (07:31→19:50)
[2020-05-17] MEDS: DOCUSATE SODIUM 100 MG/10 ML LIQUID UDC GT SCH (08:16)
[2020-05-17] MEDS: NUTRISOURCE FIBER 4 GM PACKET GT SCH ×2 (08:17→21:06)
[2020-05-17] MEDS: CALCIUM CARBONATE 500 MG TABLET GT SCH ×2 (08:17→21:08)
[2020-05-17] MEDS: COD LIVER OIL/ZINC OXIDE OINT 113 GM TUBE TP SCH ×2 (08:17→21:12)
[2020-05-17] MEDS: Z GUARD REMEDY PASTE 57 GM TUBE TOP SCH ×2 (08:17→21:12)
[2020-05-17] MEDS: BACLOFEN 10 MG TABLET GT SCH ×2 (08:17→21:05)
[2020-05-17 20:15] VITALS: BP 109/65
[2020-05-17] MEDS: ATORVASTATIN 10 MG TABLET GT SCH (21:05)
[2020-05-17] MEDS: MIRALAX 17 GM POWD.PACK GT SCH (21:06)
[2020-05-18] MEDS: IPRATROPIUM BROMIDE 0.5 MG/2.5 ML NEBU NEB SCH ×6 (02:50→23:11)
[2020-05-18] MEDS: ALBUTEROL SULFATE 2.5 MG/3 ML NEBU NEB SCH ×6 (02:50→23:11)
[2020-05-18] MEDS: CHOLECALCIFEROL 1,000 UNIT TABLET GT SCH (05:56)
[2020-05-18] MEDS: BUDESONIDE 0.5 MG/2 ML NEBU NEB SCH ×2 (07:11→20:05)
[2020-05-18] MEDS: HYDROGEN PEROXIDE 3% 118 ML BOTTLE TP SCH ×2 (07:12→20:47)
[2020-05-18 07:26] VITALS: BP 107/77
[2020-05-18] MEDS: Z GUARD REMEDY PASTE 57 GM TUBE TOP SCH ×2 (08:24→21:12)
[2020-05-18] MEDS: NEOMY/BACITRAC/POLYMI OINT 28.35 GM TUBE TOP SCH ×2 (08:25→21:12)
[2020-05-18] MEDS: COD LIVER OIL/ZINC OXIDE OINT 113 GM TUBE TP SCH (08:25)
[2020-05-18] MEDS: BACLOFEN 10 MG TABLET GT SCH ×2 (08:34→21:12)
[2020-05-18] MEDS: NUTRISOURCE FIBER 4 GM PACKET GT SCH ×2 (08:34→21:12)
[2020-05-18] MEDS: CALCIUM CARBONATE 500 MG TABLET GT SCH ×2 (08:34→21:12)
[2020-05-18] MEDS: DOCUSATE SODIUM 100 MG/10 ML LIQUID UDC GT SCH (08:34)
[2020-05-18 20:00] VITALS: BP 118/73
[2020-05-18] MEDS: ATORVASTATIN 10 MG TABLET GT SCH (21:12)
[2020-05-18] MEDS: MULTIVIT, IRON, MIN NO. 8, FA TABLET GT SCH (21:12)
[2020-05-19] MEDS: ALBUTEROL SULFATE 2.5 MG/3 ML NEBU NEB SCH ×6 (03:10→22:53)
[2020-05-19] MEDS: IPRATROPIUM BROMIDE 0.5 MG/2.5 ML NEBU NEB SCH ×6 (03:10→22:53)
[2020-05-19] MEDS: CHOLECALCIFEROL 1,000 UNIT TABLET GT SCH (05:51)
--- NOTE | 2020-05-19 06:54 | NUR ---
Condition unchanged. On continous tubefeedings. HOB up @ all times. VSS. No acute distress noted. Kept comfortable. Will monitor.Turned q2hrs. Kept comfortable.
[2020-05-19] MEDS: BUDESONIDE 0.5 MG/2 ML NEBU NEB SCH ×2 (07:07→19:43)
[2020-05-19 07:53] VITALS: BP 97/67
[2020-05-19] MEDS: NEOMY/BACITRAC/POLYMI OINT 28.35 GM TUBE TOP SCH ×2 (09:00→20:32)
[2020-05-19] MEDS: CALCIUM CARBONATE 500 MG TABLET GT SCH ×2 (09:00→20:32)
[2020-05-19] MEDS: DOCUSATE SODIUM 100 MG/10 ML LIQUID UDC GT SCH (09:00)
[2020-05-19] MEDS: NUTRISOURCE FIBER 4 GM PACKET GT SCH ×2 (09:00→20:31)
[2020-05-19] MEDS: Z GUARD REMEDY PASTE 57 GM TUBE TOP SCH ×2 (09:00→20:32)
[2020-05-19] MEDS: BACLOFEN 10 MG TABLET GT SCH ×2 (09:00→20:31)
[2020-05-19] MEDS: HYDROGEN PEROXIDE 3% 118 ML BOTTLE TP SCH ×2 (09:26→20:32)
[2020-05-19 20:00] VITALS: BP 112/64
[2020-05-19] MEDS: MIRALAX 17 GM POWD.PACK GT SCH (20:31)
[2020-05-19] MEDS: ATORVASTATIN 10 MG TABLET GT SCH (20:31)
[2020-05-20] MEDS: IPRATROPIUM BROMIDE 0.5 MG/2.5 ML NEBU NEB SCH ×6 (02:40→23:13)
[2020-05-20] MEDS: ALBUTEROL SULFATE 2.5 MG/3 ML NEBU NEB SCH ×6 (02:40→23:13)
[2020-05-20] MEDS: CHOLECALCIFEROL 1,000 UNIT TABLET GT SCH (05:32)
[2020-05-20] MEDS: BUDESONIDE 0.5 MG/2 ML NEBU NEB SCH ×2 (07:07→19:31)
[2020-05-20 08:00] VITALS: BP 95/65
[2020-05-20] MEDS: BACLOFEN 10 MG TABLET GT SCH ×2 (08:15→21:00)
[2020-05-20] MEDS: DOCUSATE SODIUM 100 MG/10 ML LIQUID UDC GT SCH (08:15)
[2020-05-20] MEDS: NUTRISOURCE FIBER 4 GM PACKET GT SCH ×2 (08:16→21:00)
[2020-05-20] MEDS: CALCIUM CARBONATE 500 MG TABLET GT SCH ×2 (08:17→21:00)
[2020-05-20] MEDS: NEOMY/BACITRAC/POLYMI OINT 28.35 GM TUBE TOP SCH ×2 (08:18→21:00)
[2020-05-20] MEDS: Z GUARD REMEDY PASTE 57 GM TUBE TOP SCH ×2 (08:18→21:00)
[2020-05-20] MEDS: HYDROGEN PEROXIDE 3% 118 ML BOTTLE TP SCH ×2 (09:27→20:45)
[2020-05-20 20:00] VITALS: BP 117/61
[2020-05-20] MEDS: MULTIVIT, IRON, MIN NO. 8, FA TABLET GT SCH (21:00)
[2020-05-20] MEDS: ATORVASTATIN 10 MG TABLET GT SCH (21:00)
[2020-05-21] MEDS: ALBUTEROL SULFATE 2.5 MG/3 ML NEBU NEB SCH ×6 (02:47→22:56)
[2020-05-21] MEDS: IPRATROPIUM BROMIDE 0.5 MG/2.5 ML NEBU NEB SCH ×6 (02:47→22:56)
[2020-05-21] MEDS: JEVITY 1.2 1000 ML LIQUID GT PRN (05:00)
[2020-05-21] MEDS: CHOLECALCIFEROL 1,000 UNIT TABLET GT SCH (05:38)
[2020-05-21] MEDS: BUDESONIDE 0.5 MG/2 ML NEBU NEB SCH ×2 (07:14→18:57)
[2020-05-21 07:37] VITALS: BP 109/65
[2020-05-21] MEDS: CALCIUM CARBONATE 500 MG TABLET GT SCH ×2 (08:02→21:18)
[2020-05-21] MEDS: DOCUSATE SODIUM 100 MG/10 ML LIQUID UDC GT SCH (08:02)
[2020-05-21] MEDS: NUTRISOURCE FIBER 4 GM PACKET GT SCH ×2 (08:02→21:17)
[2020-05-21] MEDS: BACLOFEN 10 MG TABLET GT SCH ×2 (08:02→21:16)
[2020-05-21] MEDS: Z GUARD REMEDY PASTE 57 GM TUBE TOP SCH ×2 (08:04→21:18)
[2020-05-21] MEDS: NEOMY/BACITRAC/POLYMI OINT 28.35 GM TUBE TOP SCH ×2 (08:04→21:18)
[2020-05-21] MEDS: HYDROGEN PEROXIDE 3% 118 ML BOTTLE TP SCH ×2 (09:48→21:01)
[2020-05-21 20:20] VITALS: BP 127/56
[2020-05-21] MEDS: ATORVASTATIN 10 MG TABLET GT SCH (21:16)
[2020-05-21] MEDS: MIRALAX 17 GM POWD.PACK GT SCH (21:17)
[2020-05-22] MEDS: ALBUTEROL SULFATE 2.5 MG/3 ML NEBU NEB SCH ×6 (02:55→22:50)
[2020-05-22] MEDS: IPRATROPIUM BROMIDE 0.5 MG/2.5 ML NEBU NEB SCH ×6 (02:55→22:50)
[2020-05-22] MEDS: CHOLECALCIFEROL 1,000 UNIT TABLET GT SCH (05:40)
[2020-05-22] MEDS: BUDESONIDE 0.5 MG/2 ML NEBU NEB SCH ×2 (07:00→20:10)
[2020-05-22] MEDS: NUTRISOURCE FIBER 4 GM PACKET GT SCH ×2 (09:00→21:13)
[2020-05-22] MEDS: NEOMY/BACITRAC/POLYMI OINT 28.35 GM TUBE TOP SCH ×2 (09:00→21:14)
[2020-05-22] MEDS: HYDROGEN PEROXIDE 3% 118 ML BOTTLE TP SCH ×2 (09:00→20:10)
[2020-05-22] MEDS: BACLOFEN 10 MG TABLET GT SCH ×2 (09:00→21:13)
[2020-05-22] MEDS: CALCIUM CARBONATE 500 MG TABLET GT SCH ×2 (09:00→21:13)
[2020-05-22] MEDS: DOCUSATE SODIUM 100 MG/10 ML LIQUID UDC GT SCH (09:00)
[2020-05-22] MEDS: Z GUARD REMEDY PASTE 57 GM TUBE TOP SCH ×2 (09:00→21:14)
[2020-05-22 09:06] VITALS: BP 109/65
[2020-05-22 20:03] VITALS: BP 127/56
[2020-05-22] MEDS: ATORVASTATIN 10 MG TABLET GT SCH (21:13)
[2020-05-22] MEDS: MULTIVIT, IRON, MIN NO. 8, FA TABLET GT SCH (21:14)
[2020-05-23] MEDS: ALBUTEROL SULFATE 2.5 MG/3 ML NEBU NEB SCH ×6 (02:50→22:50)
[2020-05-23] MEDS: IPRATROPIUM BROMIDE 0.5 MG/2.5 ML NEBU NEB SCH ×6 (02:50→22:50)
[2020-05-23] MEDS: CHOLECALCIFEROL 1,000 UNIT TABLET GT SCH (05:37)
[2020-05-23] MEDS: BUDESONIDE 0.5 MG/2 ML NEBU NEB SCH ×2 (07:17→19:50)
[2020-05-23 08:01] VITALS: BP 98/65
[2020-05-23] MEDS: BACLOFEN 10 MG TABLET GT SCH ×2 (08:23→20:54)
[2020-05-23] MEDS: NUTRISOURCE FIBER 4 GM PACKET GT SCH ×2 (08:23→20:54)
[2020-05-23] MEDS: DOCUSATE SODIUM 100 MG/10 ML LIQUID UDC GT SCH (08:23)
[2020-05-23] MEDS: CALCIUM CARBONATE 500 MG TABLET GT SCH ×2 (08:27→20:54)
[2020-05-23] MEDS: NEOMY/BACITRAC/POLYMI OINT 28.35 GM TUBE TOP SCH ×2 (08:27→20:54)
[2020-05-23] MEDS: Z GUARD REMEDY PASTE 57 GM TUBE TOP SCH ×2 (08:27→20:54)
[2020-05-23] MEDS: HYDROGEN PEROXIDE 3% 118 ML BOTTLE TP SCH ×2 (08:45→21:07)
[2020-05-23 20:13] VITALS: BP 128/59
[2020-05-23] MEDS: ATORVASTATIN 10 MG TABLET GT SCH (20:54)
[2020-05-24] MEDS: IPRATROPIUM BROMIDE 0.5 MG/2.5 ML NEBU NEB SCH ×6 (02:50→22:50)
[2020-05-24] MEDS: ALBUTEROL SULFATE 2.5 MG/3 ML NEBU NEB SCH ×6 (02:50→22:50)
[2020-05-24] MEDS: JEVITY 1.2 1000 ML LIQUID GT PRN (05:52)
[2020-05-24] MEDS: CHOLECALCIFEROL 1,000 UNIT TABLET GT SCH (05:52)
[2020-05-24] MEDS: BUDESONIDE 0.5 MG/2 ML NEBU NEB SCH ×2 (07:05→19:50)
[2020-05-24 07:39] VITALS: BP 130/76
[2020-05-24] MEDS: DOCUSATE SODIUM 100 MG/10 ML LIQUID UDC GT SCH (08:25)
[2020-05-24] MEDS: NEOMY/BACITRAC/POLYMI OINT 28.35 GM TUBE TOP SCH ×2 (08:25→20:22)
[2020-05-24] MEDS: Z GUARD REMEDY PASTE 57 GM TUBE TOP SCH ×2 (08:25→20:22)
[2020-05-24] MEDS: NUTRISOURCE FIBER 4 GM PACKET GT SCH ×2 (08:25→20:19)
[2020-05-24] MEDS: CALCIUM CARBONATE 500 MG TABLET GT SCH ×2 (08:25→20:22)
[2020-05-24] MEDS: BACLOFEN 10 MG TABLET GT SCH ×2 (08:25→20:18)
[2020-05-24] MEDS: HYDROGEN PEROXIDE 3% 118 ML BOTTLE TP SCH ×2 (09:12→21:37)
[2020-05-24 20:17] VITALS: BP 110/69
[2020-05-24] MEDS: ATORVASTATIN 10 MG TABLET GT SCH (20:18)
[2020-05-24] MEDS: MIRALAX 17 GM POWD.PACK GT SCH (20:19)
[2020-05-24] MEDS: MULTIVIT, IRON, MIN NO. 8, FA TABLET GT SCH (20:22)
[2020-05-25] MEDS: ALBUTEROL SULFATE 2.5 MG/3 ML NEBU NEB SCH ×6 (02:50→22:58)
[2020-05-25] MEDS: IPRATROPIUM BROMIDE 0.5 MG/2.5 ML NEBU NEB SCH ×6 (02:50→22:58)
[2020-05-25] MEDS: CHOLECALCIFEROL 1,000 UNIT TABLET GT SCH (05:32)
[2020-05-25] MEDS: BUDESONIDE 0.5 MG/2 ML NEBU NEB SCH ×2 (07:07→19:00)
[2020-05-25 07:57] VITALS: BP 105/75
[2020-05-25] MEDS: HYDROGEN PEROXIDE 3% 118 ML BOTTLE TP SCH ×2 (08:15→20:51)
[2020-05-25] MEDS: Z GUARD REMEDY PASTE 57 GM TUBE TOP SCH ×2 (08:18→21:12)
[2020-05-25] MEDS: CALCIUM CARBONATE 500 MG TABLET GT SCH ×2 (08:18→21:12)
[2020-05-25] MEDS: BACLOFEN 10 MG TABLET GT SCH ×2 (08:18→21:11)
[2020-05-25] MEDS: NUTRISOURCE FIBER 4 GM PACKET GT SCH ×2 (08:18→21:11)
[2020-05-25] MEDS: DOCUSATE SODIUM 100 MG/10 ML LIQUID UDC GT SCH (08:18)
[2020-05-25] MEDS: NEOMY/BACITRAC/POLYMI OINT 28.35 GM TUBE TOP SCH ×2 (08:19→21:12)
--- NOTE | 2020-05-25 14:22 | NUR ---
Patient relative Dione notified for covid test done today,and she stated is ok to give the Flu shot to her. Addendum: 05/25/20 at 1424 by FIONA ARORA RN to her sister Alisa
[2020-05-25 20:46] VITALS: BP 137/62
[2020-05-25] MEDS: ATORVASTATIN 10 MG TABLET GT SCH (21:11)
[2020-05-26] MEDS: ALBUTEROL SULFATE 2.5 MG/3 ML NEBU NEB SCH ×5 (02:53→18:58)
[2020-05-26] MEDS: IPRATROPIUM BROMIDE 0.5 MG/2.5 ML NEBU NEB SCH ×5 (02:53→18:58)
[2020-05-26] MEDS: CHOLECALCIFEROL 1,000 UNIT TABLET GT SCH (05:43)
[2020-05-26] MEDS: BUDESONIDE 0.5 MG/2 ML NEBU NEB SCH ×2 (07:00→18:58)
[2020-05-26 07:30] VITALS: BP 118/81
[2020-05-26] MEDS: HYDROGEN PEROXIDE 3% 118 ML BOTTLE TP SCH (08:38)
[2020-05-26] MEDS: CALCIUM CARBONATE 500 MG TABLET GT SCH ×2 (09:07→21:50)
[2020-05-26] MEDS: NUTRISOURCE FIBER 4 GM PACKET GT SCH ×2 (09:07→21:50)
[2020-05-26] MEDS: Z GUARD REMEDY PASTE 57 GM TUBE TOP SCH ×2 (09:07→21:53)
[2020-05-26] MEDS: DOCUSATE SODIUM 100 MG/10 ML LIQUID UDC GT SCH (09:07)
[2020-05-26] MEDS: NEOMY/BACITRAC/POLYMI OINT 28.35 GM TUBE TOP SCH ×2 (09:07→21:53)
[2020-05-26] MEDS: BACLOFEN 10 MG TABLET GT SCH ×2 (09:07→21:41)
--- NOTE | 2020-05-26 19:12 | NUR ---
Pt's Sister Dione was informed the result for Covid19 test was negative
[2020-05-26 20:17] VITALS: BP 129/78
[2020-05-26] MEDS: ATORVASTATIN 10 MG TABLET GT SCH (21:41)
[2020-05-26] MEDS: MIRALAX 17 GM POWD.PACK GT SCH (21:48)
[2020-05-26] MEDS: MULTIVIT, IRON, MIN NO. 8, FA TABLET GT SCH (21:52)
[2020-05-27] MEDS: CHOLECALCIFEROL 1,000 UNIT TABLET GT SCH (06:01)
[2020-05-27] MEDS: BUDESONIDE 0.5 MG/2 ML NEBU NEB SCH ×2 (06:55→20:16)
[2020-05-27] MEDS: ALBUTEROL SULFATE 2.5 MG/3 ML NEBU NEB SCH ×5 (07:13→22:50)
[2020-05-27] MEDS: HYDROGEN PEROXIDE 3% 118 ML BOTTLE TP SCH ×2 (07:13→20:16)
[2020-05-27] MEDS: IPRATROPIUM BROMIDE 0.5 MG/2.5 ML NEBU NEB SCH ×5 (07:13→22:50)
[2020-05-27 07:56] VITALS: BP 106/55
[2020-05-27] MEDS: DOCUSATE SODIUM 100 MG/10 ML LIQUID UDC GT SCH (09:01)
[2020-05-27] MEDS: BACLOFEN 10 MG TABLET GT SCH ×2 (09:01→21:45)
[2020-05-27] MEDS: NUTRISOURCE FIBER 4 GM PACKET GT SCH ×2 (09:01→21:46)
[2020-05-27] MEDS: CALCIUM CARBONATE 500 MG TABLET GT SCH ×2 (09:02→21:46)
[2020-05-27] MEDS: Z GUARD REMEDY PASTE 57 GM TUBE TOP SCH ×2 (09:02→21:46)
[2020-05-27] MEDS: NEOMY/BACITRAC/POLYMI OINT 28.35 GM TUBE TOP SCH ×2 (09:02→21:47)
--- NOTE | 2020-05-27 19:24 | NUR ---
NEW ORDER OBTAINED FROM DR. REAVES FOR FLU VACCINE.
[2020-05-27 20:34] VITALS: BP 118/61
[2020-05-27] MEDS: ATORVASTATIN 10 MG TABLET GT SCH (21:45)
[2020-05-28] MEDS: IPRATROPIUM BROMIDE 0.5 MG/2.5 ML NEBU NEB SCH ×6 (02:50→22:51)
[2020-05-28] MEDS: ALBUTEROL SULFATE 2.5 MG/3 ML NEBU NEB SCH ×6 (02:50→22:51)
[2020-05-28] MEDS: CHOLECALCIFEROL 1,000 UNIT TABLET GT SCH (05:34)
[2020-05-28 07:43] VITALS: BP 105/77
[2020-05-28] MEDS: BUDESONIDE 0.5 MG/2 ML NEBU NEB SCH ×2 (08:00→18:51)
[2020-05-28] MEDS: HYDROGEN PEROXIDE 3% 118 ML BOTTLE TP SCH ×2 (08:09→21:00)
[2020-05-28] MEDS: Z GUARD REMEDY PASTE 57 GM TUBE TOP SCH ×2 (08:18→20:53)
[2020-05-28] MEDS: DOCUSATE SODIUM 100 MG/10 ML LIQUID UDC GT SCH (08:18)
[2020-05-28] MEDS: NUTRISOURCE FIBER 4 GM PACKET GT SCH ×2 (08:18→20:52)
[2020-05-28] MEDS: BACLOFEN 10 MG TABLET GT SCH ×2 (08:18→20:51)
[2020-05-28] MEDS: CALCIUM CARBONATE 500 MG TABLET GT SCH ×2 (08:18→20:52)
[2020-05-28] MEDS: JEVITY 1.2 1000 ML LIQUID GT PRN (11:48)
--- NOTE | 2020-05-28 18:47 | NUR ---
NO A/R TO FLU VACCINE ,AFEBRILE.
[2020-05-28 20:42] VITALS: BP 102/60
[2020-05-28] MEDS: ATORVASTATIN 10 MG TABLET GT SCH (20:51)
[2020-05-28] MEDS: MIRALAX 17 GM POWD.PACK GT SCH (20:52)
[2020-05-28] MEDS: MULTIVIT, IRON, MIN NO. 8, FA TABLET GT SCH (20:53)
--- NOTE | 2020-05-28 22:46 | NUR ---
Afebrile, no adverse reactions noted from the flu vaccine.
[2020-05-29] MEDS: IPRATROPIUM BROMIDE 0.5 MG/2.5 ML NEBU NEB SCH ×6 (03:01→23:33)
[2020-05-29] MEDS: ALBUTEROL SULFATE 2.5 MG/3 ML NEBU NEB SCH ×6 (03:01→23:33)
[2020-05-29] MEDS: CHOLECALCIFEROL 1,000 UNIT TABLET GT SCH (05:01)
[2020-05-29] MEDS: BUDESONIDE 0.5 MG/2 ML NEBU NEB SCH ×2 (07:13→19:04)
[2020-05-29] MEDS: HYDROGEN PEROXIDE 3% 118 ML BOTTLE TP SCH ×2 (07:13→19:04)
[2020-05-29 07:43] VITALS: BP 110/56
[2020-05-29] MEDS: BACLOFEN 10 MG TABLET GT SCH ×2 (09:23→20:05)
[2020-05-29] MEDS: DOCUSATE SODIUM 100 MG/10 ML LIQUID UDC GT SCH (09:23)
[2020-05-29] MEDS: NUTRISOURCE FIBER 4 GM PACKET GT SCH ×2 (09:24→20:05)
[2020-05-29] MEDS: CALCIUM CARBONATE 500 MG TABLET GT SCH ×2 (09:24→20:07)
[2020-05-29] MEDS: Z GUARD REMEDY PASTE 57 GM TUBE TOP SCH ×2 (09:25→20:07)
--- NOTE | 2020-05-29 18:03 | NUR ---
NO A/R TO FLU VACCINE ,AFEBRILE.
[2020-05-29] MEDS: ATORVASTATIN 10 MG TABLET GT SCH (20:05)
[2020-05-29 20:46] VITALS: BP 116/75
--- NOTE | 2020-05-29 21:19 | NUR ---
Afebrile, no adverse reactions from flu vaccine, no redness on injection site.
[2020-05-30] MEDS: IPRATROPIUM BROMIDE 0.5 MG/2.5 ML NEBU NEB SCH ×6 (03:23→22:55)
[2020-05-30] MEDS: ALBUTEROL SULFATE 2.5 MG/3 ML NEBU NEB SCH ×6 (03:23→22:55)
[2020-05-30] MEDS: CHOLECALCIFEROL 1,000 UNIT TABLET GT SCH (06:30)
[2020-05-30] MEDS: BUDESONIDE 0.5 MG/2 ML NEBU NEB SCH ×2 (07:41→18:56)
[2020-05-30] MEDS: HYDROGEN PEROXIDE 3% 118 ML BOTTLE TP SCH ×2 (07:41→20:46)
[2020-05-30 07:44] VITALS: BP 98/68
[2020-05-30] MEDS: BACLOFEN 10 MG TABLET GT SCH ×2 (08:19→21:12)
[2020-05-30] MEDS: DOCUSATE SODIUM 100 MG/10 ML LIQUID UDC GT SCH (08:19)
[2020-05-30] MEDS: CALCIUM CARBONATE 500 MG TABLET GT SCH ×2 (08:20→21:12)
[2020-05-30] MEDS: NUTRISOURCE FIBER 4 GM PACKET GT SCH ×2 (08:20→21:12)
[2020-05-30] MEDS: Z GUARD REMEDY PASTE 57 GM TUBE TOP SCH ×2 (08:21→21:12)
--- NOTE | 2020-05-30 13:25 | NUR ---
SEEN BY DR. REAVES AND WITH NNO.
--- NOTE | 2020-05-30 13:53 | NUR ---
NO A/R TO FLU VACCINE ,AFEBRILE.
[2020-05-30 20:22] VITALS: BP 141/43
[2020-05-30] MEDS: MULTIVIT, IRON, MIN NO. 8, FA TABLET GT SCH (21:12)
[2020-05-30] MEDS: ATORVASTATIN 10 MG TABLET GT SCH (21:12)
[2020-05-30] MEDS: ACETAMINOPHEN 650 MG/20 ML UDC- SA PATIENTS-PAIN ONLY GT PRN (21:16)
[2020-05-30] MEDS: JEVITY 1.2 1000 ML LIQUID GT PRN (22:09)
[2020-05-31] MEDS: IPRATROPIUM BROMIDE 0.5 MG/2.5 ML NEBU NEB SCH ×6 (02:49→22:50)
[2020-05-31] MEDS: ALBUTEROL SULFATE 2.5 MG/3 ML NEBU NEB SCH ×6 (02:49→22:50)
[2020-05-31] MEDS: CHOLECALCIFEROL 1,000 UNIT TABLET GT SCH (06:09)
--- NOTE | 2020-05-31 06:56 | NUR ---
No A/R to flu vaccine, afebrile.
[2020-05-31] MEDS: BUDESONIDE 0.5 MG/2 ML NEBU NEB SCH ×2 (07:11→20:00)
[2020-05-31 07:44] VITALS: BP 99/63
--- NOTE | 2020-05-31 08:00 | NUR ---
SEEN BY FRANCIA Murray AND WITH NNO.
[2020-05-31] MEDS: DOCUSATE SODIUM 100 MG/10 ML LIQUID UDC GT SCH (09:31)
[2020-05-31] MEDS: BACLOFEN 10 MG TABLET GT SCH ×2 (09:31→20:39)
[2020-05-31] MEDS: CALCIUM CARBONATE 500 MG TABLET GT SCH ×2 (09:32→20:39)
[2020-05-31] MEDS: NUTRISOURCE FIBER 4 GM PACKET GT SCH ×2 (09:32→20:39)
[2020-05-31] MEDS: Z GUARD REMEDY PASTE 57 GM TUBE TOP SCH ×2 (09:32→20:39)
[2020-05-31] MEDS: HYDROGEN PEROXIDE 3% 118 ML BOTTLE TP SCH ×2 (09:42→20:00)
--- NOTE | 2020-05-31 11:30 | NUR ---
NEW ORDER CARRIED OUT FROM DR. REAVES FOR LOCAL TX ON GT SITE EXCORIATION ,PICTURE TAKEN BALLOON CHECKED AND INFLATED WITH RIGHT AMOUNT OF SALINE 6 ML.
--- NOTE | 2020-05-31 17:05 | NUR ---
NEW ORDER CARRIED OUT FROM DR. REAVES FOR SKIN BREAK ON ECCHYMOTIC AREA ON MIDNECK ANTERIOR AREA ABOVE TRACHEOSTOMY .
[2020-05-31 20:37] VITALS: BP 112/73
[2020-05-31] MEDS: MIRALAX 17 GM POWD.PACK GT SCH (20:39)
[2020-05-31] MEDS: NEOMY/BACITRAC/POLYMI OINT 28.35 GM TUBE TP SCH (20:39)
[2020-05-31] MEDS: ATORVASTATIN 10 MG TABLET GT SCH (20:39)
[2020-06-01] MEDS: IPRATROPIUM BROMIDE 0.5 MG/2.5 ML NEBU NEB SCH ×6 (02:50→22:50)
[2020-06-01] MEDS: ALBUTEROL SULFATE 2.5 MG/3 ML NEBU NEB SCH ×6 (02:50→22:50)
[2020-06-01] MEDS: CHOLECALCIFEROL 1,000 UNIT TABLET GT SCH (05:38)
[2020-06-01] MEDS: BUDESONIDE 0.5 MG/2 ML NEBU NEB SCH ×2 (06:58→19:50)
[2020-06-01 07:57] VITALS: BP 111/72
[2020-06-01] MEDS: HYDROGEN PEROXIDE 3% 118 ML BOTTLE TP SCH ×2 (08:10→21:35)
[2020-06-01] MEDS: Z GUARD REMEDY PASTE 57 GM TUBE TOP SCH ×2 (08:53→20:32)
[2020-06-01] MEDS: NEOMY/BACITRAC/POLYMI OINT 28.35 GM TUBE TP SCH ×2 (08:53→20:32)
[2020-06-01] MEDS: NUTRISOURCE FIBER 4 GM PACKET GT SCH ×2 (08:53→20:32)
[2020-06-01] MEDS: NEOMY/BACITRA/POLYMYXIN B OINT UD PACKET TP SCH (08:53)
[2020-06-01] MEDS: DOCUSATE SODIUM 100 MG/10 ML LIQUID UDC GT SCH (08:53)
[2020-06-01] MEDS: BACLOFEN 10 MG TABLET GT SCH ×2 (08:53→20:32)
[2020-06-01] MEDS: CALCIUM CARBONATE 500 MG TABLET GT SCH ×2 (08:53→20:32)
--- NOTE | 2020-06-01 16:08 | NUR ---
INTERDISCIPLINARY PLAN OF CARE CONFERENCE was held today. Patient's family lives [id number] and do not participate in the IDT meetings, however continue to be available by phone if necessary. Dr. Underwood and the Interdisciplinary Team reviewed the current plan of care in detail. RN reported on patient's medical condition, and on current skin treatment on patient's neck. See RN IDT conference notes. No major changes in medical condition were reported by nursing or by other disciplines. See all other disciplines IDT notes and physician's progress notes for additional details.
[2020-06-01 20:00] VITALS: BP 114/70
[2020-06-01] MEDS: MULTIVIT, IRON, MIN NO. 8, FA TABLET GT SCH (20:32)
[2020-06-01] MEDS: ATORVASTATIN 10 MG TABLET GT SCH (20:32)
[2020-06-02] MEDS: IPRATROPIUM BROMIDE 0.5 MG/2.5 ML NEBU NEB SCH ×6 (02:50→22:53)
[2020-06-02] MEDS: ALBUTEROL SULFATE 2.5 MG/3 ML NEBU NEB SCH ×6 (02:50→22:53)
[2020-06-02] MEDS: CHOLECALCIFEROL 1,000 UNIT TABLET GT SCH (06:30)
[2020-06-02] MEDS: BUDESONIDE 0.5 MG/2 ML NEBU NEB SCH ×2 (07:03→18:48)
[2020-06-02] MEDS: HYDROGEN PEROXIDE 3% 118 ML BOTTLE TP SCH ×2 (07:04→20:50)
[2020-06-02 07:41] VITALS: BP 117/80
[2020-06-02] MEDS: DOCUSATE SODIUM 100 MG/10 ML LIQUID UDC GT SCH (09:43)
[2020-06-02] MEDS: NUTRISOURCE FIBER 4 GM PACKET GT SCH ×2 (09:44→21:26)
[2020-06-02] MEDS: BACLOFEN 10 MG TABLET GT SCH ×2 (09:44→21:26)
[2020-06-02] MEDS: CALCIUM CARBONATE 500 MG TABLET GT SCH ×2 (09:45→21:26)
[2020-06-02] MEDS: Z GUARD REMEDY PASTE 57 GM TUBE TOP SCH ×2 (09:45→21:26)
[2020-06-02] MEDS: NEOMY/BACITRA/POLYMYXIN B OINT UD PACKET TP SCH (09:46)
[2020-06-02] MEDS: NEOMY/BACITRAC/POLYMI OINT 28.35 GM TUBE TP SCH ×2 (09:46→21:26)
--- NOTE | 2020-06-02 19:15 | NUR ---
Seen and examined by Dorothy Rhodes Np with no new orders.
[2020-06-02 20:00] VITALS: BP 108/69
[2020-06-02] MEDS: MIRALAX 17 GM POWD.PACK GT SCH (21:26)
[2020-06-02] MEDS: ATORVASTATIN 10 MG TABLET GT SCH (21:26)
[2020-06-03] MEDS: ALBUTEROL SULFATE 2.5 MG/3 ML NEBU NEB SCH ×6 (02:56→22:58)
[2020-06-03] MEDS: IPRATROPIUM BROMIDE 0.5 MG/2.5 ML NEBU NEB SCH ×6 (02:56→22:58)
[2020-06-03] MEDS: CHOLECALCIFEROL 1,000 UNIT TABLET GT SCH (06:04)
[2020-06-03 07:21] VITALS: BP 111/70
[2020-06-03] MEDS: BUDESONIDE 0.5 MG/2 ML NEBU NEB SCH ×2 (08:08→18:51)
[2020-06-03] MEDS: HYDROGEN PEROXIDE 3% 118 ML BOTTLE TP SCH ×2 (09:00→20:58)
[2020-06-03] MEDS: NEOMY/BACITRA/POLYMYXIN B OINT UD PACKET TP SCH (09:11)
[2020-06-03] MEDS: NEOMY/BACITRAC/POLYMI OINT 28.35 GM TUBE TP SCH ×2 (09:11→20:47)
[2020-06-03] MEDS: Z GUARD REMEDY PASTE 57 GM TUBE TOP SCH ×2 (09:11→20:46)
[2020-06-03] MEDS: DOCUSATE SODIUM 100 MG/10 ML LIQUID UDC GT SCH (09:11)
[2020-06-03] MEDS: NUTRISOURCE FIBER 4 GM PACKET GT SCH ×2 (09:11→20:46)
[2020-06-03] MEDS: CALCIUM CARBONATE 500 MG TABLET GT SCH ×2 (09:12→20:46)
[2020-06-03] MEDS: BACLOFEN 10 MG TABLET GT SCH ×2 (09:14→20:46)
--- NOTE | 2020-06-03 11:15 | NUR ---
SW called patient's sister Dione [phone] and informed her of possible COVID-19 exposure on the subacute unit. SW also informed Dione of the testing plan for the next 14 days, as mandated by [facility] regulations. JO-ANN stated that Dione would be notified by nursing after each test result. Dione expressed understanding and thanked this SW for the information provided.
[2020-06-03] MEDS: JEVITY 1.2 1000 ML LIQUID GT PRN (16:45)
[2020-06-03 20:00] VITALS: BP 109/67
[2020-06-03] MEDS: MULTIVIT, IRON, MIN NO. 8, FA TABLET GT SCH (20:46)
[2020-06-03] MEDS: ATORVASTATIN 10 MG TABLET GT SCH (20:46)
--- NOTE | 2020-06-03 22:49 | NUR ---
Afebrile, no signs of any respiratory distress noted, 02 sat is 99%, kept clean and comfortable.
[2020-06-04] MEDS: ALBUTEROL SULFATE 2.5 MG/3 ML NEBU NEB SCH ×5 (02:49→19:20)
[2020-06-04] MEDS: IPRATROPIUM BROMIDE 0.5 MG/2.5 ML NEBU NEB SCH ×5 (02:49→19:20)
[2020-06-04] MEDS: CHOLECALCIFEROL 1,000 UNIT TABLET GT SCH (05:44)
[2020-06-04] MEDS: BUDESONIDE 0.5 MG/2 ML NEBU NEB SCH ×2 (07:20→19:30)
[2020-06-04 07:35] VITALS: BP 134/78
[2020-06-04] MEDS: DOCUSATE SODIUM 100 MG/10 ML LIQUID UDC GT SCH (08:29)
[2020-06-04] MEDS: NEOMY/BACITRAC/POLYMI OINT 28.35 GM TUBE TP SCH ×2 (08:30→21:09)
[2020-06-04] MEDS: CALCIUM CARBONATE 500 MG TABLET GT SCH ×2 (08:30→21:09)
[2020-06-04] MEDS: Z GUARD REMEDY PASTE 57 GM TUBE TOP SCH ×2 (08:30→21:09)
[2020-06-04] MEDS: BACLOFEN 10 MG TABLET GT SCH ×2 (08:30→21:08)
[2020-06-04] MEDS: NEOMY/BACITRA/POLYMYXIN B OINT UD PACKET TP SCH (08:30)
[2020-06-04] MEDS: NUTRISOURCE FIBER 4 GM PACKET GT SCH ×2 (08:30→21:09)
[2020-06-04] MEDS: HYDROGEN PEROXIDE 3% 118 ML BOTTLE TP SCH ×2 (08:30→21:00)
[2020-06-04] MEDS: JEVITY 1.2 1000 ML LIQUID GT PRN (17:25)
[2020-06-04] MEDS: MIRALAX 17 GM POWD.PACK GT SCH (21:08)
[2020-06-04] MEDS: ATORVASTATIN 10 MG TABLET GT SCH (21:08)
[2020-06-04 22:37] VITALS: BP 110/68
[2020-06-05] MEDS: ALBUTEROL SULFATE 2.5 MG/3 ML NEBU NEB SCH ×7 (00:05→22:50)
[2020-06-05] MEDS: IPRATROPIUM BROMIDE 0.5 MG/2.5 ML NEBU NEB SCH ×7 (00:05→22:50)
[2020-06-05] MEDS: CHOLECALCIFEROL 1,000 UNIT TABLET GT SCH (05:31)
[2020-06-05] MEDS: BUDESONIDE 0.5 MG/2 ML NEBU NEB SCH ×2 (07:04→19:40)
[2020-06-05] MEDS: HYDROGEN PEROXIDE 3% 118 ML BOTTLE TP SCH ×2 (07:05→20:59)
[2020-06-05 07:49] VITALS: BP 108/71
[2020-06-05] MEDS: BACLOFEN 10 MG TABLET GT SCH ×2 (08:34→21:05)
[2020-06-05] MEDS: DOCUSATE SODIUM 100 MG/10 ML LIQUID UDC GT SCH (08:34)
[2020-06-05] MEDS: NUTRISOURCE FIBER 4 GM PACKET GT SCH ×2 (08:35→21:05)
[2020-06-05] MEDS: CALCIUM CARBONATE 500 MG TABLET GT SCH ×2 (08:35→21:05)
[2020-06-05] MEDS: NEOMY/BACITRA/POLYMYXIN B OINT UD PACKET TP SCH (08:43)
[2020-06-05] MEDS: Z GUARD REMEDY PASTE 57 GM TUBE TOP SCH ×2 (08:43→21:05)
[2020-06-05] MEDS: NEOMY/BACITRAC/POLYMI OINT 28.35 GM TUBE TP SCH ×2 (08:44→21:05)
[2020-06-05] MEDS: JEVITY 1.2 1000 ML LIQUID GT PRN (18:10)
[2020-06-05] MEDS: MULTIVIT, IRON, MIN NO. 8, FA TABLET GT SCH (21:05)
[2020-06-05] MEDS: ATORVASTATIN 10 MG TABLET GT SCH (21:05)
[2020-06-05 22:49] VITALS: BP 107/71
[2020-06-06] MEDS: IPRATROPIUM BROMIDE 0.5 MG/2.5 ML NEBU NEB SCH ×6 (02:50→23:54)
[2020-06-06] MEDS: ALBUTEROL SULFATE 2.5 MG/3 ML NEBU NEB SCH ×6 (02:50→23:54)
[2020-06-06] MEDS: CHOLECALCIFEROL 1,000 UNIT TABLET GT SCH (05:41)
[2020-06-06] MEDS: BUDESONIDE 0.5 MG/2 ML NEBU NEB SCH ×2 (07:35→19:20)
[2020-06-06 07:38] VITALS: BP 115/76
[2020-06-06] MEDS: NEOMY/BACITRAC/POLYMI OINT 28.35 GM TUBE TP SCH ×2 (08:34→21:03)
[2020-06-06] MEDS: CALCIUM CARBONATE 500 MG TABLET GT SCH ×2 (08:34→21:02)
[2020-06-06] MEDS: DOCUSATE SODIUM 100 MG/10 ML LIQUID UDC GT SCH (08:34)
[2020-06-06] MEDS: NUTRISOURCE FIBER 4 GM PACKET GT SCH ×2 (08:34→21:02)
[2020-06-06] MEDS: Z GUARD REMEDY PASTE 57 GM TUBE TOP SCH ×2 (08:34→21:02)
[2020-06-06] MEDS: NEOMY/BACITRA/POLYMYXIN B OINT UD PACKET TP SCH (08:34)
[2020-06-06] MEDS: BACLOFEN 10 MG TABLET GT SCH ×2 (08:34→21:02)
[2020-06-06] MEDS: HYDROGEN PEROXIDE 3% 118 ML BOTTLE TP SCH ×2 (09:10→21:22)
--- NOTE | 2020-06-06 11:41 | NUR ---
New orders for Covid 19 today.carried out.
[2020-06-06] MEDS: ATORVASTATIN 10 MG TABLET GT SCH (21:02)
[2020-06-06 22:41] VITALS: BP 117/79
[2020-06-06] MEDS: JEVITY 1.2 1000 ML LIQUID GT PRN (23:19)
[2020-06-07] MEDS: ALBUTEROL SULFATE 2.5 MG/3 ML NEBU NEB SCH ×6 (03:53→22:55)
[2020-06-07] MEDS: IPRATROPIUM BROMIDE 0.5 MG/2.5 ML NEBU NEB SCH ×6 (03:53→22:55)
[2020-06-07] MEDS: CHOLECALCIFEROL 1,000 UNIT TABLET GT SCH (05:39)
[2020-06-07] MEDS: HYDROGEN PEROXIDE 3% 118 ML BOTTLE TP SCH ×2 (07:07→21:13)
[2020-06-07] MEDS: BUDESONIDE 0.5 MG/2 ML NEBU NEB SCH ×2 (07:07→18:50)
[2020-06-07 07:30] VITALS: BP 116/74
[2020-06-07] MEDS: DOCUSATE SODIUM 100 MG/10 ML LIQUID UDC GT SCH (08:04)
[2020-06-07] MEDS: Z GUARD REMEDY PASTE 57 GM TUBE TOP SCH ×2 (08:06→21:40)
[2020-06-07] MEDS: CALCIUM CARBONATE 500 MG TABLET GT SCH ×2 (08:06→21:39)
[2020-06-07] MEDS: NUTRISOURCE FIBER 4 GM PACKET GT SCH ×2 (08:06→21:39)
[2020-06-07] MEDS: BACLOFEN 10 MG TABLET GT SCH ×2 (08:06→21:39)
[2020-06-07] MEDS: NEOMY/BACITRA/POLYMYXIN B OINT UD PACKET TP SCH (08:07)
[2020-06-07] MEDS: NEOMY/BACITRAC/POLYMI OINT 28.35 GM TUBE TP SCH ×2 (08:07→21:40)
[2020-06-07 20:26] VITALS: BP 131/60
[2020-06-07] MEDS: MULTIVIT, IRON, MIN NO. 8, FA TABLET GT SCH (21:39)
[2020-06-07] MEDS: MIRALAX 17 GM POWD.PACK GT SCH (21:39)
[2020-06-07] MEDS: ATORVASTATIN 10 MG TABLET GT SCH (21:39)
[2020-06-07 23:23] VITALS: BP 131/60
--- NOTE | 2020-06-08 01:21 | NUR ---
Erich from the Lab called about the COVID-19 test that was done on Sunday had resulted and the patient's result is negative.
[2020-06-08] MEDS: ALBUTEROL SULFATE 2.5 MG/3 ML NEBU NEB SCH ×6 (02:56→23:01)
[2020-06-08] MEDS: IPRATROPIUM BROMIDE 0.5 MG/2.5 ML NEBU NEB SCH ×6 (02:56→23:01)
[2020-06-08] MEDS: CHOLECALCIFEROL 1,000 UNIT TABLET GT SCH (06:29)
[2020-06-08] MEDS: JEVITY 1.2 1000 ML LIQUID GT PRN (06:30)
[2020-06-08] MEDS: BUDESONIDE 0.5 MG/2 ML NEBU NEB SCH ×2 (07:17→18:53)
[2020-06-08] MEDS: HYDROGEN PEROXIDE 3% 118 ML BOTTLE TP SCH ×2 (07:17→20:36)
[2020-06-08 07:22] VITALS: BP 109/76
[2020-06-08] MEDS: DOCUSATE SODIUM 100 MG/10 ML LIQUID UDC GT SCH (08:21)
[2020-06-08] MEDS: Z GUARD REMEDY PASTE 57 GM TUBE TOP SCH ×2 (08:22→21:11)
[2020-06-08] MEDS: NEOMY/BACITRA/POLYMYXIN B OINT UD PACKET TP SCH (08:22)
[2020-06-08] MEDS: NEOMY/BACITRAC/POLYMI OINT 28.35 GM TUBE TP SCH ×2 (08:22→21:11)
[2020-06-08] MEDS: CALCIUM CARBONATE 500 MG TABLET GT SCH ×2 (08:22→21:09)
[2020-06-08] MEDS: NUTRISOURCE FIBER 4 GM PACKET GT SCH ×2 (08:22→21:09)
[2020-06-08] MEDS: BACLOFEN 10 MG TABLET GT SCH ×2 (08:22→21:09)
--- NOTE | 2020-06-08 18:19 | NUR ---
Patient's sister Dione informed her COVID-19 test result was negative.
[2020-06-08 20:13] VITALS: BP 104/60
[2020-06-08] MEDS: ATORVASTATIN 10 MG TABLET GT SCH (21:09)
[2020-06-09] MEDS: IPRATROPIUM BROMIDE 0.5 MG/2.5 ML NEBU NEB SCH ×6 (02:47→22:50)
[2020-06-09] MEDS: ALBUTEROL SULFATE 2.5 MG/3 ML NEBU NEB SCH ×6 (02:47→22:50)
[2020-06-09] MEDS: CHOLECALCIFEROL 1,000 UNIT TABLET GT SCH (05:57)
[2020-06-09] MEDS: JEVITY 1.2 1000 ML LIQUID GT PRN (05:57)
--- NOTE | 2020-06-09 06:20 | NUR ---
daniel cameron n.p. was in, no new orders.
[2020-06-09] MEDS: BUDESONIDE 0.5 MG/2 ML NEBU NEB SCH ×2 (07:07→20:00)
[2020-06-09 07:27] VITALS: BP 96/56
[2020-06-09] MEDS: HYDROGEN PEROXIDE 3% 118 ML BOTTLE TP SCH ×2 (08:16→20:00)
[2020-06-09] MEDS: NEOMY/BACITRAC/POLYMI OINT 28.35 GM TUBE TP SCH ×2 (09:00→21:19)
[2020-06-09] MEDS: BACLOFEN 10 MG TABLET GT SCH ×2 (09:00→21:13)
[2020-06-09] MEDS: NEOMY/BACITRA/POLYMYXIN B OINT UD PACKET TP SCH (09:00)
[2020-06-09] MEDS: NUTRISOURCE FIBER 4 GM PACKET GT SCH ×2 (09:00→21:18)
[2020-06-09] MEDS: CALCIUM CARBONATE 500 MG TABLET GT SCH ×2 (09:00→21:19)
[2020-06-09] MEDS: Z GUARD REMEDY PASTE 57 GM TUBE TOP SCH ×2 (09:00→21:19)
[2020-06-09] MEDS: DOCUSATE SODIUM 100 MG/10 ML LIQUID UDC GT SCH (09:00)
[2020-06-09] MEDS: BISACODYL 10 MG SUPP.RECT RC PRN (18:37)
[2020-06-09 20:24] VITALS: BP 134/104
[2020-06-09] MEDS: MIRALAX 17 GM POWD.PACK GT SCH (21:16)
[2020-06-09] MEDS: ATORVASTATIN 10 MG TABLET GT SCH (21:16)
[2020-06-09] MEDS: MULTIVIT, IRON, MIN NO. 8, FA TABLET GT SCH (21:19)
[2020-06-09 22:00] VITALS: BP 112/62
[2020-06-10] MEDS: IPRATROPIUM BROMIDE 0.5 MG/2.5 ML NEBU NEB SCH ×6 (02:51→22:50)
[2020-06-10] MEDS: ALBUTEROL SULFATE 2.5 MG/3 ML NEBU NEB SCH ×6 (02:51→22:50)
[2020-06-10] MEDS: JEVITY 1.2 1000 ML LIQUID GT PRN (04:03)
[2020-06-10] MEDS: CHOLECALCIFEROL 1,000 UNIT TABLET GT SCH (05:32)
[2020-06-10] MEDS: BUDESONIDE 0.5 MG/2 ML NEBU NEB SCH ×2 (07:01→19:50)
[2020-06-10 08:01] VITALS: BP 115/90
[2020-06-10] MEDS: Z GUARD REMEDY PASTE 57 GM TUBE TOP SCH ×2 (08:12→21:35)
[2020-06-10] MEDS: NUTRISOURCE FIBER 4 GM PACKET GT SCH ×2 (08:12→21:35)
[2020-06-10] MEDS: CALCIUM CARBONATE 500 MG TABLET GT SCH ×2 (08:12→21:35)
[2020-06-10] MEDS: BACLOFEN 10 MG TABLET GT SCH ×2 (08:12→21:35)
[2020-06-10] MEDS: DOCUSATE SODIUM 100 MG/10 ML LIQUID UDC GT SCH (08:12)
[2020-06-10] MEDS: NEOMY/BACITRA/POLYMYXIN B OINT UD PACKET TP SCH (08:13)
[2020-06-10] MEDS: NEOMY/BACITRAC/POLYMI OINT 28.35 GM TUBE TP SCH ×2 (08:21→21:36)
[2020-06-10] MEDS: HYDROGEN PEROXIDE 3% 118 ML BOTTLE TP SCH ×2 (09:50→21:31)
--- NOTE | 2020-06-10 18:29 | NUR ---
PT. WAS SEEN AND EXAMINED BY DR. DOMINGUEZ AND WITH NNO.
[2020-06-10] MEDS: ATORVASTATIN 10 MG TABLET GT SCH (21:35)
[2020-06-10 22:51] VITALS: BP 103/76
[2020-06-11] MEDS: IPRATROPIUM BROMIDE 0.5 MG/2.5 ML NEBU NEB SCH ×6 (02:50→23:15)
[2020-06-11] MEDS: ALBUTEROL SULFATE 2.5 MG/3 ML NEBU NEB SCH ×6 (02:50→23:15)
[2020-06-11] MEDS: JEVITY 1.2 1000 ML LIQUID GT PRN (04:00)
[2020-06-11] MEDS: CHOLECALCIFEROL 1,000 UNIT TABLET GT SCH (06:01)
[2020-06-11] MEDS: BUDESONIDE 0.5 MG/2 ML NEBU NEB SCH ×2 (07:04→20:15)
[2020-06-11 08:03] VITALS: BP 125/85
[2020-06-11] MEDS: BACLOFEN 10 MG TABLET GT SCH ×2 (08:58→20:04)
[2020-06-11] MEDS: NUTRISOURCE FIBER 4 GM PACKET GT SCH ×2 (08:58→20:04)
[2020-06-11] MEDS: DOCUSATE SODIUM 100 MG/10 ML LIQUID UDC GT SCH (08:58)
[2020-06-11] MEDS: CALCIUM CARBONATE 500 MG TABLET GT SCH ×2 (08:58→20:05)
[2020-06-11] MEDS: Z GUARD REMEDY PASTE 57 GM TUBE TOP SCH ×2 (08:59→20:05)
[2020-06-11] MEDS: NEOMY/BACITRA/POLYMYXIN B OINT UD PACKET TP SCH (09:00)
[2020-06-11] MEDS: NEOMY/BACITRAC/POLYMI OINT 28.35 GM TUBE TP SCH ×2 (09:00→20:05)
[2020-06-11] MEDS: HYDROGEN PEROXIDE 3% 118 ML BOTTLE TP SCH ×2 (09:08→20:25)
[2020-06-11] MEDS: MIRALAX 17 GM POWD.PACK GT SCH (20:04)
[2020-06-11] MEDS: ATORVASTATIN 10 MG TABLET GT SCH (20:04)
[2020-06-11 20:05] VITALS: BP 98/51
[2020-06-11] MEDS: MULTIVIT, IRON, MIN NO. 8, FA TABLET GT SCH (20:05)
[2020-06-12] MEDS: ALBUTEROL SULFATE 2.5 MG/3 ML NEBU NEB SCH ×6 (03:10→23:02)
[2020-06-12] MEDS: IPRATROPIUM BROMIDE 0.5 MG/2.5 ML NEBU NEB SCH ×6 (03:10→23:01)
[2020-06-12] MEDS: CHOLECALCIFEROL 1,000 UNIT TABLET GT SCH (05:51)
[2020-06-12] MEDS: BUDESONIDE 0.5 MG/2 ML NEBU NEB SCH ×2 (07:20→19:10)
[2020-06-12] MEDS: HYDROGEN PEROXIDE 3% 118 ML BOTTLE TP SCH ×2 (07:20→21:44)
[2020-06-12 07:56] VITALS: BP 113/79
[2020-06-12] MEDS: NUTRISOURCE FIBER 4 GM PACKET GT SCH ×2 (09:09→20:20)
[2020-06-12] MEDS: CALCIUM CARBONATE 500 MG TABLET GT SCH ×2 (09:09→20:21)
[2020-06-12] MEDS: DOCUSATE SODIUM 100 MG/10 ML LIQUID UDC GT SCH (09:09)
[2020-06-12] MEDS: NEOMY/BACITRA/POLYMYXIN B OINT UD PACKET TP SCH (09:09)
[2020-06-12] MEDS: BACLOFEN 10 MG TABLET GT SCH ×2 (09:09→20:20)
[2020-06-12] MEDS: NEOMY/BACITRAC/POLYMI OINT 28.35 GM TUBE TP SCH ×2 (09:09→20:21)
[2020-06-12] MEDS: Z GUARD REMEDY PASTE 57 GM TUBE TOP SCH ×2 (09:09→20:21)
[2020-06-12] MEDS: JEVITY 1.2 1000 ML LIQUID GT PRN (09:10)
[2020-06-12 20:10] VITALS: BP 127/75
[2020-06-12] MEDS: ATORVASTATIN 10 MG TABLET GT SCH (20:20)
[2020-06-13] MEDS: IPRATROPIUM BROMIDE 0.5 MG/2.5 ML NEBU NEB SCH ×6 (03:38→23:01)
[2020-06-13] MEDS: ALBUTEROL SULFATE 2.5 MG/3 ML NEBU NEB SCH ×6 (03:38→23:01)
[2020-06-13] MEDS: CHOLECALCIFEROL 1,000 UNIT TABLET GT SCH (05:33)
[2020-06-13] MEDS: JEVITY 1.2 1000 ML LIQUID GT PRN (05:33)
[2020-06-13] MEDS: BUDESONIDE 0.5 MG/2 ML NEBU NEB SCH ×2 (07:15→19:02)
[2020-06-13 08:01] VITALS: BP 108/73
[2020-06-13] MEDS: NEOMY/BACITRAC/POLYMI OINT 28.35 GM TUBE TP SCH ×2 (09:00→21:11)
[2020-06-13] MEDS: NEOMY/BACITRA/POLYMYXIN B OINT UD PACKET TP SCH (09:00)
[2020-06-13] MEDS: DOCUSATE SODIUM 100 MG/10 ML LIQUID UDC GT SCH (09:15)
[2020-06-13] MEDS: Z GUARD REMEDY PASTE 57 GM TUBE TOP SCH ×2 (09:16→21:11)
[2020-06-13] MEDS: BACLOFEN 10 MG TABLET GT SCH ×2 (09:16→21:08)
[2020-06-13] MEDS: CALCIUM CARBONATE 500 MG TABLET GT SCH ×2 (09:16→21:08)
[2020-06-13] MEDS: NUTRISOURCE FIBER 4 GM PACKET GT SCH ×2 (09:16→21:08)
[2020-06-13] MEDS: HYDROGEN PEROXIDE 3% 118 ML BOTTLE TP SCH ×2 (11:30→21:08)
[2020-06-13 20:54] VITALS: BP 112/76
[2020-06-13] MEDS: ATORVASTATIN 10 MG TABLET GT SCH (21:08)
[2020-06-13] MEDS: MULTIVIT, IRON, MIN NO. 8, FA TABLET GT SCH (21:11)
[2020-06-14] MEDS: ALBUTEROL SULFATE 2.5 MG/3 ML NEBU NEB SCH ×6 (03:01→22:50)
[2020-06-14] MEDS: IPRATROPIUM BROMIDE 0.5 MG/2.5 ML NEBU NEB SCH ×6 (03:01→22:50)
[2020-06-14] MEDS: JEVITY 1.2 1000 ML LIQUID GT PRN (03:38)
[2020-06-14] MEDS: CHOLECALCIFEROL 1,000 UNIT TABLET GT SCH (06:40)
[2020-06-14] MEDS: BUDESONIDE 0.5 MG/2 ML NEBU NEB SCH ×2 (07:09→19:40)
[2020-06-14 07:29] VITALS: BP 113/72
[2020-06-14] MEDS: HYDROGEN PEROXIDE 3% 118 ML BOTTLE TP SCH ×2 (08:25→21:29)
[2020-06-14] MEDS: BACLOFEN 10 MG TABLET GT SCH ×2 (08:50→20:29)
[2020-06-14] MEDS: NUTRISOURCE FIBER 4 GM PACKET GT SCH ×2 (08:50→20:29)
[2020-06-14] MEDS: CALCIUM CARBONATE 500 MG TABLET GT SCH ×2 (08:50→20:29)
[2020-06-14] MEDS: DOCUSATE SODIUM 100 MG/10 ML LIQUID UDC GT SCH (08:50)
[2020-06-14] MEDS: Z GUARD REMEDY PASTE 57 GM TUBE TOP SCH ×2 (08:51→20:29)
[2020-06-14] MEDS: NEOMY/BACITRA/POLYMYXIN B OINT UD PACKET TP SCH (08:51)
[2020-06-14] MEDS: NEOMY/BACITRAC/POLYMI OINT 28.35 GM TUBE TP SCH (08:52)
[2020-06-14] MEDS: ATORVASTATIN 10 MG TABLET GT SCH (20:29)
[2020-06-14] MEDS: MIRALAX 17 GM POWD.PACK GT SCH (20:29)
[2020-06-14 20:31] VITALS: BP 115/74
[2020-06-15] MEDS: IPRATROPIUM BROMIDE 0.5 MG/2.5 ML NEBU NEB SCH ×6 (02:50→22:50)
[2020-06-15] MEDS: ALBUTEROL SULFATE 2.5 MG/3 ML NEBU NEB SCH ×6 (02:50→22:50)
[2020-06-15] MEDS: CHOLECALCIFEROL 1,000 UNIT TABLET GT SCH (05:30)
[2020-06-15] MEDS: BUDESONIDE 0.5 MG/2 ML NEBU NEB SCH ×2 (07:12→19:45)
[2020-06-15] MEDS: HYDROGEN PEROXIDE 3% 118 ML BOTTLE TP SCH ×2 (07:39→21:11)
[2020-06-15 07:50] VITALS: BP 99/54
[2020-06-15] MEDS: DOCUSATE SODIUM 100 MG/10 ML LIQUID UDC GT SCH (08:49)
[2020-06-15] MEDS: Z GUARD REMEDY PASTE 57 GM TUBE TOP SCH ×2 (08:49→20:17)
[2020-06-15] MEDS: CALCIUM CARBONATE 500 MG TABLET GT SCH ×2 (08:49→20:16)
[2020-06-15] MEDS: NUTRISOURCE FIBER 4 GM PACKET GT SCH ×2 (08:49→20:15)
[2020-06-15] MEDS: BACLOFEN 10 MG TABLET GT SCH ×2 (08:49→20:15)
[2020-06-15] MEDS: ATORVASTATIN 10 MG TABLET GT SCH (20:15)
[2020-06-15] MEDS: MULTIVIT, IRON, MIN NO. 8, FA TABLET GT SCH (20:16)
[2020-06-15 20:39] VITALS: BP 117/70
[2020-06-16] MEDS: ALBUTEROL SULFATE 2.5 MG/3 ML NEBU NEB SCH ×6 (02:52→23:08)
[2020-06-16] MEDS: IPRATROPIUM BROMIDE 0.5 MG/2.5 ML NEBU NEB SCH ×6 (02:52→23:08)
[2020-06-16] MEDS: CHOLECALCIFEROL 1,000 UNIT TABLET GT SCH (05:53)
[2020-06-16] MEDS: BUDESONIDE 0.5 MG/2 ML NEBU NEB SCH ×2 (07:16→19:01)
[2020-06-16 07:24] VITALS: BP 121/76
[2020-06-16] MEDS: HYDROGEN PEROXIDE 3% 118 ML BOTTLE TP SCH ×2 (08:07→21:45)
[2020-06-16] MEDS: CALCIUM CARBONATE 500 MG TABLET GT SCH ×2 (09:00→21:32)
[2020-06-16] MEDS: Z GUARD REMEDY PASTE 57 GM TUBE TOP SCH ×2 (09:00→21:32)
[2020-06-16] MEDS: DOCUSATE SODIUM 100 MG/10 ML LIQUID UDC GT SCH (09:00)
[2020-06-16] MEDS: NUTRISOURCE FIBER 4 GM PACKET GT SCH ×2 (09:00→21:32)
[2020-06-16] MEDS: BACLOFEN 10 MG TABLET GT SCH ×2 (09:00→21:31)
--- NOTE | 2020-06-16 16:30 | NUR ---
Covid 19 test done today.per [facility] requirement.
[2020-06-16 20:51] VITALS: BP 122/76
[2020-06-16] MEDS: MIRALAX 17 GM POWD.PACK GT SCH (21:31)
[2020-06-16] MEDS: ATORVASTATIN 10 MG TABLET GT SCH (21:31)
[2020-06-16] MEDS: JEVITY 1.2 1000 ML LIQUID GT PRN (23:00)
[2020-06-17] MEDS: IPRATROPIUM BROMIDE 0.5 MG/2.5 ML NEBU NEB SCH ×6 (03:02→23:10)
[2020-06-17] MEDS: ALBUTEROL SULFATE 2.5 MG/3 ML NEBU NEB SCH ×6 (03:02→23:10)
[2020-06-17] MEDS: CHOLECALCIFEROL 1,000 UNIT TABLET GT SCH (06:47)
[2020-06-17] MEDS: BUDESONIDE 0.5 MG/2 ML NEBU NEB SCH ×2 (07:00→19:02)
[2020-06-17 07:42] VITALS: BP 136/86
[2020-06-17] MEDS: DOCUSATE SODIUM 100 MG/10 ML LIQUID UDC GT SCH (08:53)
[2020-06-17] MEDS: CALCIUM CARBONATE 500 MG TABLET GT SCH ×2 (08:53→20:38)
[2020-06-17] MEDS: NUTRISOURCE FIBER 4 GM PACKET GT SCH ×2 (08:53→20:43)
[2020-06-17] MEDS: BACLOFEN 10 MG TABLET GT SCH ×2 (08:53→20:43)
[2020-06-17] MEDS: Z GUARD REMEDY PASTE 57 GM TUBE TOP SCH ×2 (08:53→20:38)
[2020-06-17] MEDS: HYDROGEN PEROXIDE 3% 118 ML BOTTLE TP SCH ×2 (09:15→20:52)
[2020-06-17] MEDS: MULTIVIT, IRON, MIN NO. 8, FA TABLET GT SCH (20:38)
[2020-06-17] MEDS: ATORVASTATIN 10 MG TABLET GT SCH (20:43)
[2020-06-17 22:09] VITALS: BP 93/54
[2020-06-18] MEDS: IPRATROPIUM BROMIDE 0.5 MG/2.5 ML NEBU NEB SCH ×6 (03:06→22:53)
[2020-06-18] MEDS: ALBUTEROL SULFATE 2.5 MG/3 ML NEBU NEB SCH ×6 (03:06→22:53)
[2020-06-18] MEDS: CHOLECALCIFEROL 1,000 UNIT TABLET GT SCH (05:28)
[2020-06-18] MEDS: BUDESONIDE 0.5 MG/2 ML NEBU NEB SCH ×2 (07:27→18:50)
[2020-06-18 07:29] VITALS: BP 137/89
[2020-06-18] MEDS: HYDROGEN PEROXIDE 3% 118 ML BOTTLE TP SCH ×2 (09:00→20:55)
[2020-06-18] MEDS: DOCUSATE SODIUM 100 MG/10 ML LIQUID UDC GT SCH (09:02)
[2020-06-18] MEDS: NUTRISOURCE FIBER 4 GM PACKET GT SCH ×2 (09:03→21:14)
[2020-06-18] MEDS: BACLOFEN 10 MG TABLET GT SCH ×2 (09:03→21:11)
[2020-06-18] MEDS: CALCIUM CARBONATE 500 MG TABLET GT SCH ×2 (09:05→21:15)
[2020-06-18] MEDS: Z GUARD REMEDY PASTE 57 GM TUBE TOP SCH ×2 (09:06→21:15)
[2020-06-18] MEDS: JEVITY 1.2 1000 ML LIQUID GT PRN (15:16)
[2020-06-18] MEDS: MIRALAX 17 GM POWD.PACK GT SCH (21:13)
[2020-06-18] MEDS: ATORVASTATIN 10 MG TABLET GT SCH (21:13)
[2020-06-18 22:18] VITALS: BP 106/78
[2020-06-19] MEDS: ALBUTEROL SULFATE 2.5 MG/3 ML NEBU NEB SCH ×7 (02:35→22:50)
[2020-06-19] MEDS: IPRATROPIUM BROMIDE 0.5 MG/2.5 ML NEBU NEB SCH ×7 (02:35→22:50)
[2020-06-19] MEDS: CHOLECALCIFEROL 1,000 UNIT TABLET GT SCH (05:35)
[2020-06-19] MEDS: BUDESONIDE 0.5 MG/2 ML NEBU NEB SCH ×2 (07:11→19:40)
[2020-06-19 07:32] VITALS: BP 117/79
[2020-06-19] MEDS: Z GUARD REMEDY PASTE 57 GM TUBE TOP SCH ×2 (08:02→21:21)
[2020-06-19] MEDS: CALCIUM CARBONATE 500 MG TABLET GT SCH ×2 (08:02→21:21)
[2020-06-19] MEDS: BACLOFEN 10 MG TABLET GT SCH ×2 (08:02→21:20)
[2020-06-19] MEDS: DOCUSATE SODIUM 100 MG/10 ML LIQUID UDC GT SCH (08:02)
[2020-06-19] MEDS: NUTRISOURCE FIBER 4 GM PACKET GT SCH ×2 (08:02→21:20)
[2020-06-19] MEDS: HYDROGEN PEROXIDE 3% 118 ML BOTTLE TP SCH ×2 (08:30→20:26)
[2020-06-19] MEDS: JEVITY 1.2 1000 ML LIQUID GT PRN (15:34)
[2020-06-19] MEDS: ATORVASTATIN 10 MG TABLET GT SCH (21:20)
[2020-06-19] MEDS: MULTIVIT, IRON, MIN NO. 8, FA TABLET GT SCH (21:21)
[2020-06-19 22:30] VITALS: BP 131/75
[2020-06-20] MEDS: IPRATROPIUM BROMIDE 0.5 MG/2.5 ML NEBU NEB SCH ×6 (02:50→22:50)
[2020-06-20] MEDS: ALBUTEROL SULFATE 2.5 MG/3 ML NEBU NEB SCH ×6 (02:50→22:50)
[2020-06-20] MEDS: CHOLECALCIFEROL 1,000 UNIT TABLET GT SCH (05:44)
[2020-06-20] MEDS: BUDESONIDE 0.5 MG/2 ML NEBU NEB SCH ×2 (07:08→19:45)
[2020-06-20 07:46] VITALS: BP 119/64
[2020-06-20] MEDS: Z GUARD REMEDY PASTE 57 GM TUBE TOP SCH ×2 (08:36→20:44)
[2020-06-20] MEDS: BACLOFEN 10 MG TABLET GT SCH ×2 (08:36→20:44)
[2020-06-20] MEDS: CALCIUM CARBONATE 500 MG TABLET GT SCH ×2 (08:36→20:44)
[2020-06-20] MEDS: DOCUSATE SODIUM 100 MG/10 ML LIQUID UDC GT SCH (08:36)
[2020-06-20] MEDS: NUTRISOURCE FIBER 4 GM PACKET GT SCH ×2 (08:36→20:44)
[2020-06-20] MEDS: HYDROGEN PEROXIDE 3% 118 ML BOTTLE TP SCH ×2 (09:18→21:13)
[2020-06-20] MEDS: JEVITY 1.2 1000 ML LIQUID GT PRN (17:31)
[2020-06-20] MEDS: ATORVASTATIN 10 MG TABLET GT SCH (20:44)
[2020-06-20 22:50] VITALS: BP 113/75
[2020-06-21] MEDS: IPRATROPIUM BROMIDE 0.5 MG/2.5 ML NEBU NEB SCH ×6 (02:50→22:54)
[2020-06-21] MEDS: ALBUTEROL SULFATE 2.5 MG/3 ML NEBU NEB SCH ×6 (02:50→22:54)
[2020-06-21] MEDS: CHOLECALCIFEROL 1,000 UNIT TABLET GT SCH (05:30)
[2020-06-21] MEDS: BUDESONIDE 0.5 MG/2 ML NEBU NEB SCH ×2 (07:00→18:58)
[2020-06-21 07:33] VITALS: BP 152/92
[2020-06-21] MEDS: DOCUSATE SODIUM 100 MG/10 ML LIQUID UDC GT SCH (08:06)
[2020-06-21] MEDS: Z GUARD REMEDY PASTE 57 GM TUBE TOP SCH ×2 (08:09→20:50)
[2020-06-21] MEDS: NUTRISOURCE FIBER 4 GM PACKET GT SCH ×2 (08:09→20:50)
[2020-06-21] MEDS: BACLOFEN 10 MG TABLET GT SCH ×2 (08:09→20:49)
[2020-06-21] MEDS: CALCIUM CARBONATE 500 MG TABLET GT SCH ×2 (08:09→20:50)
[2020-06-21] MEDS: HYDROGEN PEROXIDE 3% 118 ML BOTTLE TP SCH ×2 (09:24→21:21)
[2020-06-21 20:21] VITALS: BP 117/74
[2020-06-21] MEDS: ATORVASTATIN 10 MG TABLET GT SCH (20:49)
[2020-06-21] MEDS: MULTIVIT, IRON, MIN NO. 8, FA TABLET GT SCH (20:50)
[2020-06-21] MEDS: MIRALAX 17 GM POWD.PACK GT SCH (20:50)
[2020-06-22] MEDS: ALBUTEROL SULFATE 2.5 MG/3 ML NEBU NEB SCH ×6 (02:57→22:55)
[2020-06-22] MEDS: IPRATROPIUM BROMIDE 0.5 MG/2.5 ML NEBU NEB SCH ×6 (02:57→22:55)
[2020-06-22] MEDS: BUDESONIDE 0.5 MG/2 ML NEBU NEB SCH ×2 (07:05→18:46)
[2020-06-22 07:27] VITALS: BP 101/69
[2020-06-22] MEDS: DOCUSATE SODIUM 100 MG/10 ML LIQUID UDC GT SCH (08:33)
[2020-06-22] MEDS: NUTRISOURCE FIBER 4 GM PACKET GT SCH ×2 (08:34→21:44)
[2020-06-22] MEDS: BACLOFEN 10 MG TABLET GT SCH ×2 (08:34→21:43)
[2020-06-22] MEDS: Z GUARD REMEDY PASTE 57 GM TUBE TOP SCH ×2 (08:35→21:44)
[2020-06-22] MEDS: CALCIUM CARBONATE 500 MG TABLET GT SCH ×2 (08:35→21:44)
[2020-06-22] MEDS: HYDROGEN PEROXIDE 3% 118 ML BOTTLE TP SCH ×2 (08:41→20:44)
[2020-06-22 20:16] VITALS: BP 95/50
[2020-06-22] MEDS: ATORVASTATIN 10 MG TABLET GT SCH (21:44)
[2020-06-23] MEDS: JEVITY 1.2 1000 ML LIQUID GT PRN (00:41)
[2020-06-23] MEDS: IPRATROPIUM BROMIDE 0.5 MG/2.5 ML NEBU NEB SCH ×6 (02:56→22:38)
[2020-06-23] MEDS: ALBUTEROL SULFATE 2.5 MG/3 ML NEBU NEB SCH ×6 (02:56→22:38)
[2020-06-23] MEDS: CHOLECALCIFEROL 1,000 UNIT TABLET GT SCH (05:42)
[2020-06-23 07:26] VITALS: BP 112/79
[2020-06-23] MEDS: BUDESONIDE 0.5 MG/2 ML NEBU NEB SCH ×2 (07:27→18:53)
[2020-06-23] MEDS: HYDROGEN PEROXIDE 3% 118 ML BOTTLE TP SCH ×2 (07:27→18:53)
[2020-06-23] MEDS: BACLOFEN 10 MG TABLET GT SCH ×2 (08:00→20:50)
[2020-06-23] MEDS: DOCUSATE SODIUM 100 MG/10 ML LIQUID UDC GT SCH (08:00)
[2020-06-23] MEDS: NUTRISOURCE FIBER 4 GM PACKET GT SCH ×2 (08:01→20:50)
[2020-06-23] MEDS: Z GUARD REMEDY PASTE 57 GM TUBE TOP SCH ×2 (08:02→20:50)
[2020-06-23] MEDS: CALCIUM CARBONATE 500 MG TABLET GT SCH ×2 (08:02→20:50)
--- NOTE | 2020-06-23 15:20 | NUR ---
JO-ANN called patient's sister Dione [phone], but Dione was not available. JO-ANN left a voicemail message letting Dione know that this SW was mailing patient's annual [facility] Redetermination form to Dione, for completing. JO-ANN instructed Dione to complete the form, as she does annual, and mail it back to [facility] in the enclosed envelope. JO-ANN mailed the [facility] Redetermination form packet to Dione at: [id number], [place] [address]
[2020-06-23 19:48] VITALS: BP 132/78
[2020-06-23] MEDS: ATORVASTATIN 10 MG TABLET GT SCH (20:50)
[2020-06-23] MEDS: MULTIVIT, IRON, MIN NO. 8, FA TABLET GT SCH (20:50)
[2020-06-23] MEDS: MIRALAX 17 GM POWD.PACK GT SCH (20:50)
[2020-06-24] MEDS: IPRATROPIUM BROMIDE 0.5 MG/2.5 ML NEBU NEB SCH ×6 (02:40→22:50)
[2020-06-24] MEDS: ALBUTEROL SULFATE 2.5 MG/3 ML NEBU NEB SCH ×6 (02:40→22:50)
[2020-06-24] MEDS: CHOLECALCIFEROL 1,000 UNIT TABLET GT SCH (06:02)
[2020-06-24] MEDS: HYDROGEN PEROXIDE 3% 118 ML BOTTLE TP SCH ×2 (07:29→21:21)
[2020-06-24] MEDS: BUDESONIDE 0.5 MG/2 ML NEBU NEB SCH ×2 (07:29→19:40)
[2020-06-24 07:49] VITALS: BP 122/77
[2020-06-24] MEDS: CALCIUM CARBONATE 500 MG TABLET GT SCH ×2 (08:26→20:22)
[2020-06-24] MEDS: NUTRISOURCE FIBER 4 GM PACKET GT SCH ×2 (08:26→20:22)
[2020-06-24] MEDS: DOCUSATE SODIUM 100 MG/10 ML LIQUID UDC GT SCH (08:26)
[2020-06-24] MEDS: BACLOFEN 10 MG TABLET GT SCH ×2 (08:26→20:21)
[2020-06-24] MEDS: Z GUARD REMEDY PASTE 57 GM TUBE TOP SCH ×2 (08:26→20:22)
[2020-06-24] MEDS: JEVITY 1.2 1000 ML LIQUID GT PRN (18:35)
[2020-06-24 19:55] VITALS: BP 91/56
[2020-06-24] MEDS: ATORVASTATIN 10 MG TABLET GT SCH (20:21)
[2020-06-25] MEDS: ALBUTEROL SULFATE 2.5 MG/3 ML NEBU NEB SCH ×6 (02:50→22:35)
[2020-06-25] MEDS: IPRATROPIUM BROMIDE 0.5 MG/2.5 ML NEBU NEB SCH ×6 (02:50→22:35)
[2020-06-25] MEDS: CHOLECALCIFEROL 1,000 UNIT TABLET GT SCH (06:17)
[2020-06-25] MEDS: BUDESONIDE 0.5 MG/2 ML NEBU NEB SCH ×2 (06:59→18:39)
[2020-06-25] MEDS: HYDROGEN PEROXIDE 3% 118 ML BOTTLE TP SCH ×2 (06:59→18:39)
[2020-06-25 07:26] VITALS: BP 105/62
--- NOTE | 2020-06-25 07:30 | NUR ---
SEEN BY FRANCIA Mart AND WITH BENNYO.
[2020-06-25] MEDS: BACLOFEN 10 MG TABLET GT SCH ×2 (08:43→21:19)
[2020-06-25] MEDS: Z GUARD REMEDY PASTE 57 GM TUBE TOP SCH ×2 (08:43→21:19)
[2020-06-25] MEDS: DOCUSATE SODIUM 100 MG/10 ML LIQUID UDC GT SCH (08:43)
[2020-06-25] MEDS: CALCIUM CARBONATE 500 MG TABLET GT SCH ×2 (08:43→21:19)
[2020-06-25] MEDS: NUTRISOURCE FIBER 4 GM PACKET GT SCH ×2 (08:43→21:19)
[2020-06-25 20:30] VITALS: BP 97/50
[2020-06-25] MEDS: MIRALAX 17 GM POWD.PACK GT SCH (21:19)
[2020-06-25] MEDS: MULTIVIT, IRON, MIN NO. 8, FA TABLET GT SCH (21:19)
[2020-06-25] MEDS: JEVITY 1.2 1000 ML LIQUID GT PRN (21:19)
[2020-06-25] MEDS: ATORVASTATIN 10 MG TABLET GT SCH (21:19)
[2020-06-26] MEDS: ALBUTEROL SULFATE 2.5 MG/3 ML NEBU NEB SCH ×6 (02:35→22:50)
[2020-06-26] MEDS: IPRATROPIUM BROMIDE 0.5 MG/2.5 ML NEBU NEB SCH ×6 (02:35→22:50)
[2020-06-26] MEDS: CHOLECALCIFEROL 1,000 UNIT TABLET GT SCH (05:41)
[2020-06-26] MEDS: BUDESONIDE 0.5 MG/2 ML NEBU NEB SCH ×2 (07:05→19:40)
[2020-06-26] MEDS: HYDROGEN PEROXIDE 3% 118 ML BOTTLE TP SCH ×2 (07:06→21:27)
[2020-06-26 07:24] VITALS: BP 123/76
[2020-06-26] MEDS: NUTRISOURCE FIBER 4 GM PACKET GT SCH ×2 (08:04→21:11)
[2020-06-26] MEDS: BACLOFEN 10 MG TABLET GT SCH ×2 (08:06→21:11)
[2020-06-26] MEDS: Z GUARD REMEDY PASTE 57 GM TUBE TOP SCH ×2 (08:06→21:11)
[2020-06-26] MEDS: CALCIUM CARBONATE 500 MG TABLET GT SCH ×2 (08:07→21:11)
[2020-06-26] MEDS: DOCUSATE SODIUM 100 MG/10 ML LIQUID UDC GT SCH (08:07)
[2020-06-26] MEDS: JEVITY 1.2 1000 ML LIQUID GT PRN (15:13)
[2020-06-26 20:00] VITALS: BP 104/70
[2020-06-26] MEDS: ATORVASTATIN 10 MG TABLET GT SCH (21:11)
[2020-06-27] MEDS: IPRATROPIUM BROMIDE 0.5 MG/2.5 ML NEBU NEB SCH ×6 (02:50→22:50)
[2020-06-27] MEDS: ALBUTEROL SULFATE 2.5 MG/3 ML NEBU NEB SCH ×6 (02:50→22:50)
[2020-06-27] MEDS: CHOLECALCIFEROL 1,000 UNIT TABLET GT SCH (05:32)
[2020-06-27] MEDS: BUDESONIDE 0.5 MG/2 ML NEBU NEB SCH ×2 (07:07→19:40)
[2020-06-27] MEDS: HYDROGEN PEROXIDE 3% 118 ML BOTTLE TP SCH ×2 (07:07→21:20)
[2020-06-27 07:22] VITALS: BP 132/86
[2020-06-27] MEDS: DOCUSATE SODIUM 100 MG/10 ML LIQUID UDC GT SCH (08:07)
[2020-06-27] MEDS: BACLOFEN 10 MG TABLET GT SCH ×2 (08:07→21:07)
[2020-06-27] MEDS: CALCIUM CARBONATE 500 MG TABLET GT SCH ×2 (08:07→21:07)
[2020-06-27] MEDS: Z GUARD REMEDY PASTE 57 GM TUBE TOP SCH ×2 (08:07→21:07)
[2020-06-27] MEDS: NUTRISOURCE FIBER 4 GM PACKET GT SCH ×2 (08:07→21:07)
--- NOTE | 2020-06-27 15:39 | NUR ---
NEW ORDER CARRIED OUT FROM DR. REAVES FOR COVID 19 TEST AND PT'S RESP. GREEN PARTY ALEXA AWARE AND IN AGREEMENT.
[2020-06-27 20:23] VITALS: BP 97/64
[2020-06-27] MEDS: MULTIVIT, IRON, MIN NO. 8, FA TABLET GT SCH (21:07)
[2020-06-27] MEDS: ATORVASTATIN 10 MG TABLET GT SCH (21:07)
[2020-06-28] MEDS: IPRATROPIUM BROMIDE 0.5 MG/2.5 ML NEBU NEB SCH ×6 (02:50→22:50)
[2020-06-28] MEDS: ALBUTEROL SULFATE 2.5 MG/3 ML NEBU NEB SCH ×6 (02:50→22:50)
[2020-06-28] MEDS: CHOLECALCIFEROL 1,000 UNIT TABLET GT SCH (05:45)
[2020-06-28] MEDS: BUDESONIDE 0.5 MG/2 ML NEBU NEB SCH ×2 (07:20→19:40)
[2020-06-28] MEDS: HYDROGEN PEROXIDE 3% 118 ML BOTTLE TP SCH ×2 (07:20→21:02)
[2020-06-28 07:26] VITALS: BP 103/75
[2020-06-28] MEDS: DOCUSATE SODIUM 100 MG/10 ML LIQUID UDC GT SCH (08:12)
[2020-06-28] MEDS: BACLOFEN 10 MG TABLET GT SCH ×2 (08:13→20:19)
[2020-06-28] MEDS: NUTRISOURCE FIBER 4 GM PACKET GT SCH ×2 (08:13→20:19)
[2020-06-28] MEDS: Z GUARD REMEDY PASTE 57 GM TUBE TOP SCH ×2 (08:14→20:19)
[2020-06-28] MEDS: CALCIUM CARBONATE 500 MG TABLET GT SCH ×2 (08:14→20:19)
--- NOTE | 2020-06-28 15:51 | NUR ---
PT'S RESP. DEMOCRAT ALEXA WAS NOTIFIED RE: NEGATIVE COVID 19 TEST.
[2020-06-28] MEDS: JEVITY 1.2 1000 ML LIQUID GT PRN (17:34)
[2020-06-28] MEDS: ATORVASTATIN 10 MG TABLET GT SCH (20:19)
[2020-06-28] MEDS: MIRALAX 17 GM POWD.PACK GT SCH (20:19)
[2020-06-28 20:31] VITALS: BP 105/73
[2020-06-29] MEDS: ALBUTEROL SULFATE 2.5 MG/3 ML NEBU NEB SCH ×6 (02:50→22:35)
[2020-06-29] MEDS: IPRATROPIUM BROMIDE 0.5 MG/2.5 ML NEBU NEB SCH ×6 (02:50→22:35)
[2020-06-29] MEDS: CHOLECALCIFEROL 1,000 UNIT TABLET GT SCH (05:31)
[2020-06-29 07:25] VITALS: BP 101/56
[2020-06-29] MEDS: DOCUSATE SODIUM 100 MG/10 ML LIQUID UDC GT SCH (08:22)
[2020-06-29] MEDS: Z GUARD REMEDY PASTE 57 GM TUBE TOP SCH ×2 (08:22→21:00)
[2020-06-29] MEDS: CALCIUM CARBONATE 500 MG TABLET GT SCH ×2 (08:22→21:00)
[2020-06-29] MEDS: NUTRISOURCE FIBER 4 GM PACKET GT SCH ×2 (08:22→21:00)
[2020-06-29] MEDS: BACLOFEN 10 MG TABLET GT SCH ×2 (08:22→21:00)
[2020-06-29] MEDS: HYDROGEN PEROXIDE 3% 118 ML BOTTLE TP SCH ×2 (08:23→18:35)
[2020-06-29] MEDS: BUDESONIDE 0.5 MG/2 ML NEBU NEB SCH ×2 (08:23→18:35)
[2020-06-29 19:43] VITALS: BP 131/82
[2020-06-29 20:39] VITALS: BP 111/63
[2020-06-29] MEDS: MULTIVIT, IRON, MIN NO. 8, FA TABLET GT SCH (21:00)
[2020-06-29] MEDS: ATORVASTATIN 10 MG TABLET GT SCH (21:00)
[2020-06-30] MEDS: ALBUTEROL SULFATE 2.5 MG/3 ML NEBU NEB SCH ×5 (02:35→19:03)
[2020-06-30] MEDS: IPRATROPIUM BROMIDE 0.5 MG/2.5 ML NEBU NEB SCH ×5 (02:35→19:03)
[2020-06-30] MEDS: JEVITY 1.2 1000 ML LIQUID GT PRN (04:00)
[2020-06-30] MEDS: CHOLECALCIFEROL 1,000 UNIT TABLET GT SCH (05:19)
[2020-06-30] MEDS: BUDESONIDE 0.5 MG/2 ML NEBU NEB SCH ×2 (07:13→20:11)
[2020-06-30 07:39] VITALS: BP_SYST 67
[2020-06-30] MEDS: BACLOFEN 10 MG TABLET GT SCH ×2 (08:16→21:41)
[2020-06-30] MEDS: DOCUSATE SODIUM 100 MG/10 ML LIQUID UDC GT SCH (08:16)
[2020-06-30] MEDS: NUTRISOURCE FIBER 4 GM PACKET GT SCH ×2 (08:16→21:46)
[2020-06-30] MEDS: CALCIUM CARBONATE 500 MG TABLET GT SCH ×2 (08:17→21:46)
[2020-06-30] MEDS: Z GUARD REMEDY PASTE 57 GM TUBE TOP SCH ×2 (08:17→21:46)
[2020-06-30] MEDS: HYDROGEN PEROXIDE 3% 118 ML BOTTLE TP SCH ×2 (09:16→20:13)
[2020-06-30 19:49] VITALS: BP 105/70
[2020-06-30] MEDS: MIRALAX 17 GM POWD.PACK GT SCH (21:41)
[2020-06-30] MEDS: ATORVASTATIN 10 MG TABLET GT SCH (21:41)
[2020-07-01] MEDS: ALBUTEROL SULFATE 2.5 MG/3 ML NEBU NEB SCH ×7 (02:42→23:00)
[2020-07-01] MEDS: IPRATROPIUM BROMIDE 0.5 MG/2.5 ML NEBU NEB SCH ×7 (02:42→23:00)
[2020-07-01] MEDS: JEVITY 1.2 1000 ML LIQUID GT PRN (05:05)
[2020-07-01] MEDS: CHOLECALCIFEROL 1,000 UNIT TABLET GT SCH (05:31)
[2020-07-01 07:27] VITALS: BP 134/83
[2020-07-01] MEDS: HYDROGEN PEROXIDE 3% 118 ML BOTTLE TP SCH ×2 (07:31→21:12)
[2020-07-01] MEDS: BUDESONIDE 0.5 MG/2 ML NEBU NEB SCH ×2 (07:31→18:54)
[2020-07-01] MEDS: BACLOFEN 10 MG TABLET GT SCH ×2 (08:01→20:52)
[2020-07-01] MEDS: Z GUARD REMEDY PASTE 57 GM TUBE TOP SCH ×2 (08:01→20:52)
[2020-07-01] MEDS: CALCIUM CARBONATE 500 MG TABLET GT SCH ×2 (08:01→20:52)
[2020-07-01] MEDS: DOCUSATE SODIUM 100 MG/10 ML LIQUID UDC GT SCH (08:01)
[2020-07-01] MEDS: NUTRISOURCE FIBER 4 GM PACKET GT SCH ×2 (08:01→20:52)
[2020-07-01 20:29] VITALS: BP 117/92
[2020-07-01] MEDS: ATORVASTATIN 10 MG TABLET GT SCH (20:52)
[2020-07-01] MEDS: MULTIVIT, IRON, MIN NO. 8, FA TABLET GT SCH (20:52)
[2020-07-02] MEDS: ALBUTEROL SULFATE 2.5 MG/3 ML NEBU NEB SCH ×6 (02:51→22:35)
[2020-07-02] MEDS: IPRATROPIUM BROMIDE 0.5 MG/2.5 ML NEBU NEB SCH ×6 (02:51→22:35)
[2020-07-02] MEDS: JEVITY 1.2 1000 ML LIQUID GT PRN (04:00)
[2020-07-02] MEDS: CHOLECALCIFEROL 1,000 UNIT TABLET GT SCH (05:41)
[2020-07-02] MEDS: BUDESONIDE 0.5 MG/2 ML NEBU NEB SCH ×2 (07:06→18:39)
[2020-07-02 07:28] VITALS: BP 105/68
[2020-07-02] MEDS: HYDROGEN PEROXIDE 3% 118 ML BOTTLE TP SCH ×2 (08:35→20:40)
[2020-07-02] MEDS: NUTRISOURCE FIBER 4 GM PACKET GT SCH ×2 (08:48→20:37)
[2020-07-02] MEDS: BACLOFEN 10 MG TABLET GT SCH ×2 (08:48→20:34)
[2020-07-02] MEDS: CALCIUM CARBONATE 500 MG TABLET GT SCH ×2 (08:48→20:39)
[2020-07-02] MEDS: DOCUSATE SODIUM 100 MG/10 ML LIQUID UDC GT SCH (08:48)
[2020-07-02] MEDS: Z GUARD REMEDY PASTE 57 GM TUBE TOP SCH ×2 (08:49→20:38)
[2020-07-02] MEDS: ATORVASTATIN 10 MG TABLET GT SCH (20:35)
[2020-07-02] MEDS: MIRALAX 17 GM POWD.PACK GT SCH (20:36)
[2020-07-02 22:16] VITALS: BP 110/65
[2020-07-03] MEDS: IPRATROPIUM BROMIDE 0.5 MG/2.5 ML NEBU NEB SCH ×6 (02:35→22:50)
[2020-07-03] MEDS: ALBUTEROL SULFATE 2.5 MG/3 ML NEBU NEB SCH ×6 (02:36→22:50)
[2020-07-03] MEDS: JEVITY 1.2 1000 ML LIQUID GT PRN (06:02)
[2020-07-03] MEDS: CHOLECALCIFEROL 1,000 UNIT TABLET GT SCH (06:04)
[2020-07-03] MEDS: BUDESONIDE 0.5 MG/2 ML NEBU NEB SCH ×2 (07:05→20:00)
[2020-07-03 07:37] VITALS: BP 101/64
[2020-07-03] MEDS: HYDROGEN PEROXIDE 3% 118 ML BOTTLE TP SCH ×2 (09:00→20:00)
[2020-07-03] MEDS: BACLOFEN 10 MG TABLET GT SCH ×2 (09:05→21:37)
[2020-07-03] MEDS: DOCUSATE SODIUM 100 MG/10 ML LIQUID UDC GT SCH (09:05)
[2020-07-03] MEDS: NUTRISOURCE FIBER 4 GM PACKET GT SCH ×2 (09:05→21:37)
[2020-07-03] MEDS: CALCIUM CARBONATE 500 MG TABLET GT SCH ×2 (09:06→21:37)
[2020-07-03] MEDS: Z GUARD REMEDY PASTE 57 GM TUBE TOP SCH ×2 (09:06→21:37)
--- NOTE | 2020-07-03 11:25 | NUR ---
Seen and examined by Dr Palomino with new orders noted.
[2020-07-03] MEDS: ATORVASTATIN 10 MG TABLET GT SCH (21:37)
[2020-07-03] MEDS: MULTIVIT, IRON, MIN NO. 8, FA TABLET GT SCH (21:37)
[2020-07-03 22:24] VITALS: BP 106/79
[2020-07-04] MEDS: ALBUTEROL SULFATE 2.5 MG/3 ML NEBU NEB SCH ×6 (02:51→22:40)
[2020-07-04] MEDS: IPRATROPIUM BROMIDE 0.5 MG/2.5 ML NEBU NEB SCH ×6 (02:51→22:40)
[2020-07-04] MEDS: CHOLECALCIFEROL 1,000 UNIT TABLET GT SCH (06:06)
[2020-07-04] MEDS: BUDESONIDE 0.5 MG/2 ML NEBU NEB SCH ×2 (07:01→19:40)
[2020-07-04 07:47] VITALS: BP 138/90
[2020-07-04] MEDS: BACLOFEN 10 MG TABLET GT SCH ×2 (09:00→21:53)
[2020-07-04] MEDS: NUTRISOURCE FIBER 4 GM PACKET GT SCH ×2 (09:00→21:53)
[2020-07-04] MEDS: DOCUSATE SODIUM 100 MG/10 ML LIQUID UDC GT SCH (09:00)
[2020-07-04] MEDS: CALCIUM CARBONATE 500 MG TABLET GT SCH ×2 (09:01→21:53)
[2020-07-04] MEDS: Z GUARD REMEDY PASTE 57 GM TUBE TOP SCH ×2 (09:01→21:53)
[2020-07-04] MEDS: JEVITY 1.2 1000 ML LIQUID GT PRN (09:10)
[2020-07-04] MEDS: HYDROGEN PEROXIDE 3% 118 ML BOTTLE TP SCH ×2 (09:16→21:01)
--- NOTE | 2020-07-04 18:32 | NUR ---
Covid 19 test done today.per [facility] requirement.Responsible republican notified.
[2020-07-04] MEDS: ATORVASTATIN 10 MG TABLET GT SCH (21:53)
[2020-07-04 22:22] VITALS: BP 109/71
[2020-07-05] MEDS: IPRATROPIUM BROMIDE 0.5 MG/2.5 ML NEBU NEB SCH ×6 (02:40→22:50)
[2020-07-05] MEDS: ALBUTEROL SULFATE 2.5 MG/3 ML NEBU NEB SCH ×6 (02:40→22:50)
[2020-07-05] MEDS: CHOLECALCIFEROL 1,000 UNIT TABLET GT SCH (06:07)
[2020-07-05] MEDS: BUDESONIDE 0.5 MG/2 ML NEBU NEB SCH ×2 (07:02→19:40)
[2020-07-05 07:28] VITALS: BP 120/72
[2020-07-05] MEDS: NUTRISOURCE FIBER 4 GM PACKET GT SCH ×2 (08:08→21:16)
[2020-07-05] MEDS: BACLOFEN 10 MG TABLET GT SCH ×2 (08:08→21:16)
[2020-07-05] MEDS: DOCUSATE SODIUM 100 MG/10 ML LIQUID UDC GT SCH (08:08)
[2020-07-05] MEDS: Z GUARD REMEDY PASTE 57 GM TUBE TOP SCH ×2 (08:09→21:17)
[2020-07-05] MEDS: CALCIUM CARBONATE 500 MG TABLET GT SCH ×2 (08:09→21:16)
[2020-07-05] MEDS: HYDROGEN PEROXIDE 3% 118 ML BOTTLE TP SCH ×2 (08:23→21:18)
[2020-07-05] MEDS: JEVITY 1.2 1000 ML LIQUID GT PRN (10:13)
[2020-07-05 20:06] VITALS: BP 110/74
[2020-07-05] MEDS: MULTIVIT, IRON, MIN NO. 8, FA TABLET GT SCH (21:16)
[2020-07-05] MEDS: MIRALAX 17 GM POWD.PACK GT SCH (21:16)
[2020-07-05] MEDS: ATORVASTATIN 10 MG TABLET GT SCH (21:16)
[2020-07-06] MEDS: ALBUTEROL SULFATE 2.5 MG/3 ML NEBU NEB SCH ×6 (02:50→23:02)
[2020-07-06] MEDS: IPRATROPIUM BROMIDE 0.5 MG/2.5 ML NEBU NEB SCH ×6 (02:50→23:02)
[2020-07-06] MEDS: CHOLECALCIFEROL 1,000 UNIT TABLET GT SCH (05:05)
[2020-07-06] MEDS: BUDESONIDE 0.5 MG/2 ML NEBU NEB SCH ×2 (07:12→18:51)
[2020-07-06 07:15] VITALS: BP 112/81
[2020-07-06] MEDS: HYDROGEN PEROXIDE 3% 118 ML BOTTLE TP SCH ×2 (08:34→21:02)
[2020-07-06] MEDS: DOCUSATE SODIUM 100 MG/10 ML LIQUID UDC GT SCH (09:00)
[2020-07-06] MEDS: CALCIUM CARBONATE 500 MG TABLET GT SCH ×2 (09:00→20:16)
[2020-07-06] MEDS: BACLOFEN 10 MG TABLET GT SCH ×2 (09:00→20:15)
[2020-07-06] MEDS: Z GUARD REMEDY PASTE 57 GM TUBE TOP SCH ×2 (09:00→20:16)
[2020-07-06] MEDS: NUTRISOURCE FIBER 4 GM PACKET GT SCH ×2 (09:00→20:16)
[2020-07-06] MEDS: JEVITY 1.2 1000 ML LIQUID GT PRN (11:50)
--- NOTE | 2020-07-06 15:10 | NUR ---
INTERDISCIPLINARY PLAN OF CARE CONFERENCE was held today. Patient's family lives [id number] and do not participate in the IDT meetings, however patient's family is available by phone if necessary. Dr. Underwood and the Interdisciplinary Team reviewed the current plan of care in detail. RN reported on patient's medical condition. See RN IDT conference notes. No major changes in medical condition were reported by nursing or by other disciplines. See all other disciplines IDT notes and physician's progress notes for additional details.
[2020-07-06 20:01] VITALS: BP 129/85
[2020-07-06] MEDS: ATORVASTATIN 10 MG TABLET GT SCH (20:16)
[2020-07-07] MEDS: ALBUTEROL SULFATE 2.5 MG/3 ML NEBU NEB SCH ×6 (02:45→22:30)
[2020-07-07] MEDS: IPRATROPIUM BROMIDE 0.5 MG/2.5 ML NEBU NEB SCH ×6 (02:45→22:30)
[2020-07-07] MEDS: CHOLECALCIFEROL 1,000 UNIT TABLET GT SCH (05:32)
[2020-07-07] MEDS: BUDESONIDE 0.5 MG/2 ML NEBU NEB SCH ×2 (07:00→18:32)
[2020-07-07] MEDS: HYDROGEN PEROXIDE 3% 118 ML BOTTLE TP SCH ×2 (07:00→18:32)
[2020-07-07 07:26] VITALS: BP 111/67
[2020-07-07] MEDS: NUTRISOURCE FIBER 4 GM PACKET GT SCH ×2 (09:01→21:51)
[2020-07-07] MEDS: DOCUSATE SODIUM 100 MG/10 ML LIQUID UDC GT SCH (09:01)
[2020-07-07] MEDS: Z GUARD REMEDY PASTE 57 GM TUBE TOP SCH ×2 (09:01→21:54)
[2020-07-07] MEDS: CALCIUM CARBONATE 500 MG TABLET GT SCH ×2 (09:01→21:52)
[2020-07-07] MEDS: BACLOFEN 10 MG TABLET GT SCH ×2 (09:01→21:49)
[2020-07-07] MEDS: JEVITY 1.2 1000 ML LIQUID GT PRN (13:59)
[2020-07-07 19:42] VITALS: BP 129/85
[2020-07-07 19:48] VITALS: BP 128/77
--- NOTE | 2020-07-07 20:03 | NUR ---
Patient's sister Dione informed her COVID-19 test result was negative
[2020-07-07] MEDS: ATORVASTATIN 10 MG TABLET GT SCH (21:51)
[2020-07-07] MEDS: MIRALAX 17 GM POWD.PACK GT SCH (21:51)
[2020-07-07] MEDS: MULTIVIT, IRON, MIN NO. 8, FA TABLET GT SCH (21:54)
[2020-07-08] MEDS: ALBUTEROL SULFATE 2.5 MG/3 ML NEBU NEB SCH ×6 (02:30→22:35)
[2020-07-08] MEDS: IPRATROPIUM BROMIDE 0.5 MG/2.5 ML NEBU NEB SCH ×6 (02:30→22:35)
[2020-07-08] MEDS: CHOLECALCIFEROL 1,000 UNIT TABLET GT SCH (05:42)
[2020-07-08] MEDS: BUDESONIDE 0.5 MG/2 ML NEBU NEB SCH ×2 (07:09→18:36)
[2020-07-08] MEDS: HYDROGEN PEROXIDE 3% 118 ML BOTTLE TP SCH ×2 (07:09→18:41)
[2020-07-08 07:49] VITALS: BP 126/70
[2020-07-08] MEDS: BACLOFEN 10 MG TABLET GT SCH ×2 (08:19→20:36)
[2020-07-08] MEDS: NUTRISOURCE FIBER 4 GM PACKET GT SCH ×2 (08:19→20:36)
[2020-07-08] MEDS: DOCUSATE SODIUM 100 MG/10 ML LIQUID UDC GT SCH (08:19)
[2020-07-08] MEDS: CALCIUM CARBONATE 500 MG TABLET GT SCH ×2 (08:19→20:36)
[2020-07-08] MEDS: Z GUARD REMEDY PASTE 57 GM TUBE TOP SCH ×2 (08:19→20:37)
[2020-07-08] MEDS: JEVITY 1.2 1000 ML LIQUID GT PRN (11:49)
[2020-07-08 20:00] VITALS: BP 127/71
[2020-07-08] MEDS: ATORVASTATIN 10 MG TABLET GT SCH (20:36)
[2020-07-09] MEDS: ALBUTEROL SULFATE 2.5 MG/3 ML NEBU NEB SCH ×6 (02:40→22:56)
[2020-07-09] MEDS: IPRATROPIUM BROMIDE 0.5 MG/2.5 ML NEBU NEB SCH ×6 (02:40→22:56)
[2020-07-09] MEDS: CHOLECALCIFEROL 1,000 UNIT TABLET GT SCH (05:38)
[2020-07-09] MEDS: BUDESONIDE 0.5 MG/2 ML NEBU NEB SCH ×2 (07:10→18:51)
[2020-07-09 07:29] VITALS: BP 124/67
[2020-07-09] MEDS: Z GUARD REMEDY PASTE 57 GM TUBE TOP SCH ×2 (09:00→20:22)
[2020-07-09] MEDS: DOCUSATE SODIUM 100 MG/10 ML LIQUID UDC GT SCH (09:00)
[2020-07-09] MEDS: NUTRISOURCE FIBER 4 GM PACKET GT SCH ×2 (09:00→20:22)
[2020-07-09] MEDS: CALCIUM CARBONATE 500 MG TABLET GT SCH ×2 (09:00→20:22)
[2020-07-09] MEDS: BACLOFEN 10 MG TABLET GT SCH ×2 (09:00→20:22)
[2020-07-09] MEDS: HYDROGEN PEROXIDE 3% 118 ML BOTTLE TP SCH ×2 (09:06→21:04)
[2020-07-09] MEDS: JEVITY 1.2 1000 ML LIQUID GT PRN (10:38)
--- NOTE | 2020-07-09 12:00 | NUR ---
SEEN BY DR. REAVES AND WITH NNO.
--- NOTE | 2020-07-09 17:02 | NUR ---
NEW ORDER WAS CARRIED OUT FOR GT SITE EXCORIATION FROM DR. REAVES.PICTURE WAS TAKEN TOO.
[2020-07-09 19:30] VITALS: BP 123/60
[2020-07-09] MEDS: MIRALAX 17 GM POWD.PACK GT SCH (20:22)
[2020-07-09] MEDS: ATORVASTATIN 10 MG TABLET GT SCH (20:22)
[2020-07-09] MEDS: MULTIVIT, IRON, MIN NO. 8, FA TABLET GT SCH (20:22)
[2020-07-09] MEDS: NYSTATIN POWDER 15 GM BOTTLE TP SCH (20:23)
[2020-07-10] MEDS: ALBUTEROL SULFATE 2.5 MG/3 ML NEBU NEB SCH ×6 (02:51→22:50)
[2020-07-10] MEDS: IPRATROPIUM BROMIDE 0.5 MG/2.5 ML NEBU NEB SCH ×6 (02:51→22:50)
[2020-07-10] MEDS: CHOLECALCIFEROL 1,000 UNIT TABLET GT SCH (06:03)
[2020-07-10 07:25] VITALS: BP 124/66
[2020-07-10] MEDS: BUDESONIDE 0.5 MG/2 ML NEBU NEB SCH ×2 (07:30→19:51)
[2020-07-10] MEDS: HYDROGEN PEROXIDE 3% 118 ML BOTTLE TP SCH ×2 (08:55→21:18)
[2020-07-10] MEDS: NYSTATIN POWDER 15 GM BOTTLE TP SCH ×2 (09:09→20:29)
[2020-07-10] MEDS: NUTRISOURCE FIBER 4 GM PACKET GT SCH ×2 (09:09→20:29)
[2020-07-10] MEDS: DOCUSATE SODIUM 100 MG/10 ML LIQUID UDC GT SCH (09:09)
[2020-07-10] MEDS: Z GUARD REMEDY PASTE 57 GM TUBE TOP SCH ×2 (09:09→20:29)
[2020-07-10] MEDS: CALCIUM CARBONATE 500 MG TABLET GT SCH ×2 (09:09→20:29)
[2020-07-10] MEDS: BACLOFEN 10 MG TABLET GT SCH ×2 (09:09→20:29)
[2020-07-10] MEDS: ATORVASTATIN 10 MG TABLET GT SCH (20:29)
[2020-07-10 22:57] VITALS: BP 126/80
[2020-07-11] MEDS: IPRATROPIUM BROMIDE 0.5 MG/2.5 ML NEBU NEB SCH ×6 (02:50→22:50)
[2020-07-11] MEDS: ALBUTEROL SULFATE 2.5 MG/3 ML NEBU NEB SCH ×6 (02:50→22:50)
[2020-07-11] MEDS: CHOLECALCIFEROL 1,000 UNIT TABLET GT SCH (06:11)
[2020-07-11] MEDS: BUDESONIDE 0.5 MG/2 ML NEBU NEB SCH ×2 (07:12→19:55)
[2020-07-11] MEDS: BACLOFEN 10 MG TABLET GT SCH ×2 (08:21→21:01)
[2020-07-11] MEDS: DOCUSATE SODIUM 100 MG/10 ML LIQUID UDC GT SCH (08:21)
[2020-07-11] MEDS: NUTRISOURCE FIBER 4 GM PACKET GT SCH ×2 (08:21→21:02)
[2020-07-11] MEDS: CALCIUM CARBONATE 500 MG TABLET GT SCH ×2 (08:22→21:04)
[2020-07-11] MEDS: NYSTATIN POWDER 15 GM BOTTLE TP SCH ×2 (08:22→21:05)
[2020-07-11] MEDS: Z GUARD REMEDY PASTE 57 GM TUBE TOP SCH ×2 (08:22→21:04)
[2020-07-11] MEDS: HYDROGEN PEROXIDE 3% 118 ML BOTTLE TP SCH ×2 (09:11→20:48)
[2020-07-11] MEDS: ATORVASTATIN 10 MG TABLET GT SCH (21:02)
[2020-07-11] MEDS: MULTIVIT, IRON, MIN NO. 8, FA TABLET GT SCH (21:04)
[2020-07-11 22:00] VITALS: BP 125/82
--- NOTE | 2020-07-11 22:56 | NUR ---
Patient is sleeping comfortably, temperature is 97.3 Fahrenheit, no signs of any distress noted, kept patient clean and comfortable.
[2020-07-12] MEDS: ACETAMINOPHEN 650 MG/20 ML UDC- SA PATIENTS-PAIN ONLY GT PRN (02:45)
[2020-07-12] MEDS: IPRATROPIUM BROMIDE 0.5 MG/2.5 ML NEBU NEB SCH ×6 (02:50→22:56)
[2020-07-12] MEDS: ALBUTEROL SULFATE 2.5 MG/3 ML NEBU NEB SCH ×6 (02:50→22:56)
--- NOTE | 2020-07-12 05:45 | NUR ---
Patient is having her menstruation at this time, no signs of any pain or discomfort noted, will continue monitor.
[2020-07-12] MEDS: CHOLECALCIFEROL 1,000 UNIT TABLET GT SCH (05:47)
--- NOTE | 2020-07-12 06:58 | NUR ---
Will test patient for COVID-19 today.
[2020-07-12 07:30] VITALS: BP 110/56
[2020-07-12] MEDS: BUDESONIDE 0.5 MG/2 ML NEBU NEB SCH ×2 (07:45→19:30)
[2020-07-12] MEDS: BACLOFEN 10 MG TABLET GT SCH ×2 (08:11→21:22)
[2020-07-12] MEDS: DOCUSATE SODIUM 100 MG/10 ML LIQUID UDC GT SCH (08:11)
[2020-07-12] MEDS: NYSTATIN POWDER 15 GM BOTTLE TP SCH ×2 (08:12→21:29)
[2020-07-12] MEDS: NUTRISOURCE FIBER 4 GM PACKET GT SCH ×2 (08:12→21:27)
[2020-07-12] MEDS: CALCIUM CARBONATE 500 MG TABLET GT SCH ×2 (08:12→21:27)
[2020-07-12] MEDS: Z GUARD REMEDY PASTE 57 GM TUBE TOP SCH ×2 (08:12→21:29)
[2020-07-12] MEDS: HYDROGEN PEROXIDE 3% 118 ML BOTTLE TP SCH ×2 (09:29→19:30)
--- NOTE | 2020-07-12 12:30 | NUR ---
SEEN BY DANICA Goode AND WITH NNO.
--- NOTE | 2020-07-12 12:30 | NUR ---
WRONG ACCOUNT ENTRY,DANICA Goode DID NOT SEE PT.
[2020-07-12] MEDS: JEVITY 1.2 1000 ML LIQUID GT PRN (14:24)
--- NOTE | 2020-07-12 15:35 | NUR ---
PT. WAS SEEN AND EXAMINED BY DR. REAVES AND WITH NNO.
--- NOTE | 2020-07-12 17:25 | NUR ---
NO COVID 19 TEST REQUIRED TODAY AND PT'S RESP. CONSTITUTION PARTY ALEXA AWARE .
[2020-07-12 20:12] VITALS: BP 110/66
[2020-07-12] MEDS: ATORVASTATIN 10 MG TABLET GT SCH (21:25)
[2020-07-12] MEDS: MIRALAX 17 GM POWD.PACK GT SCH (21:25)
[2020-07-13] MEDS: IPRATROPIUM BROMIDE 0.5 MG/2.5 ML NEBU NEB SCH ×6 (03:15→22:50)
[2020-07-13] MEDS: ALBUTEROL SULFATE 2.5 MG/3 ML NEBU NEB SCH ×6 (03:15→22:50)
[2020-07-13] MEDS: CHOLECALCIFEROL 1,000 UNIT TABLET GT SCH (05:31)
[2020-07-13] MEDS: HYDROGEN PEROXIDE 3% 118 ML BOTTLE TP SCH ×2 (07:19→21:07)
[2020-07-13] MEDS: BUDESONIDE 0.5 MG/2 ML NEBU NEB SCH ×2 (07:19→19:50)
[2020-07-13 07:31] VITALS: BP 118/65
[2020-07-13] MEDS: BACLOFEN 10 MG TABLET GT SCH ×2 (08:18→20:54)
[2020-07-13] MEDS: DOCUSATE SODIUM 100 MG/10 ML LIQUID UDC GT SCH (08:18)
[2020-07-13] MEDS: NUTRISOURCE FIBER 4 GM PACKET GT SCH ×2 (08:21→20:54)
[2020-07-13] MEDS: CALCIUM CARBONATE 500 MG TABLET GT SCH ×2 (08:21→20:56)
[2020-07-13] MEDS: Z GUARD REMEDY PASTE 57 GM TUBE TOP SCH ×2 (08:21→20:56)
[2020-07-13] MEDS: NYSTATIN POWDER 15 GM BOTTLE TP SCH ×2 (09:27→20:56)
[2020-07-13] MEDS: JEVITY 1.2 1000 ML LIQUID GT PRN (14:38)
[2020-07-13 20:04] VITALS: BP 117/64
[2020-07-13] MEDS: ATORVASTATIN 10 MG TABLET GT SCH (20:54)
[2020-07-13] MEDS: MULTIVIT, IRON, MIN NO. 8, FA TABLET GT SCH (20:56)
--- NOTE | 2020-07-13 22:30 | NUR ---
Patient is having her period at this time, no signs of any pain or discomfort at this time.
[2020-07-14] MEDS: IPRATROPIUM BROMIDE 0.5 MG/2.5 ML NEBU NEB SCH ×6 (02:50→22:50)
[2020-07-14] MEDS: ALBUTEROL SULFATE 2.5 MG/3 ML NEBU NEB SCH ×6 (02:50→22:50)
[2020-07-14] MEDS: CHOLECALCIFEROL 1,000 UNIT TABLET GT SCH (06:46)
[2020-07-14] MEDS: BUDESONIDE 0.5 MG/2 ML NEBU NEB SCH ×2 (07:10→19:51)
[2020-07-14 07:18] VITALS: BP 103/55
[2020-07-14] MEDS: DOCUSATE SODIUM 100 MG/10 ML LIQUID UDC GT SCH (08:46)
[2020-07-14] MEDS: Z GUARD REMEDY PASTE 57 GM TUBE TOP SCH ×2 (08:46→20:50)
[2020-07-14] MEDS: CALCIUM CARBONATE 500 MG TABLET GT SCH ×2 (08:46→20:50)
[2020-07-14] MEDS: NYSTATIN POWDER 15 GM BOTTLE TP SCH ×2 (08:46→20:51)
[2020-07-14] MEDS: NUTRISOURCE FIBER 4 GM PACKET GT SCH ×2 (08:46→20:50)
[2020-07-14] MEDS: BACLOFEN 10 MG TABLET GT SCH ×2 (08:46→20:49)
[2020-07-14] MEDS: HYDROGEN PEROXIDE 3% 118 ML BOTTLE TP SCH ×2 (09:04→20:45)
[2020-07-14] MEDS: COD LIVER OIL/ZINC OXIDE OINT 113 GM TUBE TP SCH ×2 (10:26→20:51)
[2020-07-14] MEDS: MIRALAX 17 GM POWD.PACK GT SCH (20:49)
[2020-07-14] MEDS: ATORVASTATIN 10 MG TABLET GT SCH (20:49)
[2020-07-14 22:21] VITALS: BP 120/78
[2020-07-15] MEDS: IPRATROPIUM BROMIDE 0.5 MG/2.5 ML NEBU NEB SCH ×6 (02:52→22:30)
[2020-07-15] MEDS: ALBUTEROL SULFATE 2.5 MG/3 ML NEBU NEB SCH ×6 (02:52→22:30)
[2020-07-15] MEDS: CHOLECALCIFEROL 1,000 UNIT TABLET GT SCH (06:50)
[2020-07-15] MEDS: BUDESONIDE 0.5 MG/2 ML NEBU NEB SCH ×2 (07:03→18:38)
[2020-07-15 07:23] VITALS: BP 112/80
[2020-07-15] MEDS: HYDROGEN PEROXIDE 3% 118 ML BOTTLE TP SCH ×2 (09:00→18:50)
[2020-07-15] MEDS: BACLOFEN 10 MG TABLET GT SCH ×2 (09:04→21:03)
[2020-07-15] MEDS: Z GUARD REMEDY PASTE 57 GM TUBE TOP SCH ×2 (09:04→21:03)
[2020-07-15] MEDS: CALCIUM CARBONATE 500 MG TABLET GT SCH ×2 (09:04→21:03)
[2020-07-15] MEDS: COD LIVER OIL/ZINC OXIDE OINT 113 GM TUBE TP SCH ×2 (09:04→21:03)
[2020-07-15] MEDS: NUTRISOURCE FIBER 4 GM PACKET GT SCH ×2 (09:04→21:03)
[2020-07-15] MEDS: DOCUSATE SODIUM 100 MG/10 ML LIQUID UDC GT SCH (09:04)
[2020-07-15] MEDS: NYSTATIN POWDER 15 GM BOTTLE TP SCH ×2 (09:04→21:03)
--- NOTE | 2020-07-15 12:30 | NUR ---
Noted scarred skin to be on the pt's left buttock instead of the right buttock, clarification of order made, MD made aware as well. Treatment given, pt. tolerated well. Pt remains comfortable, all needs attended and anticipated.
[2020-07-15] MEDS: JEVITY 1.2 1000 ML LIQUID GT PRN (19:00)
[2020-07-15 19:53] VITALS: BP 124/67
[2020-07-15] MEDS: MULTIVIT, IRON, MIN NO. 8, FA TABLET GT SCH (21:03)
[2020-07-15] MEDS: ATORVASTATIN 10 MG TABLET GT SCH (21:03)
[2020-07-16] MEDS: IPRATROPIUM BROMIDE 0.5 MG/2.5 ML NEBU NEB SCH ×6 (02:30→22:58)
[2020-07-16] MEDS: ALBUTEROL SULFATE 2.5 MG/3 ML NEBU NEB SCH ×6 (02:30→22:58)
[2020-07-16] MEDS: CHOLECALCIFEROL 1,000 UNIT TABLET GT SCH (05:14)
[2020-07-16] MEDS: BUDESONIDE 0.5 MG/2 ML NEBU NEB SCH ×2 (07:00→18:49)
[2020-07-16 07:30] VITALS: BP 131/85
[2020-07-16] MEDS: HYDROGEN PEROXIDE 3% 118 ML BOTTLE TP SCH ×2 (08:55→21:04)
[2020-07-16] MEDS: NUTRISOURCE FIBER 4 GM PACKET GT SCH ×2 (09:31→21:18)
[2020-07-16] MEDS: DOCUSATE SODIUM 100 MG/10 ML LIQUID UDC GT SCH (09:31)
[2020-07-16] MEDS: Z GUARD REMEDY PASTE 57 GM TUBE TOP SCH ×2 (09:31→21:19)
[2020-07-16] MEDS: CALCIUM CARBONATE 500 MG TABLET GT SCH ×2 (09:31→21:19)
[2020-07-16] MEDS: COD LIVER OIL/ZINC OXIDE OINT 113 GM TUBE TP SCH ×2 (09:31→21:20)
[2020-07-16] MEDS: NYSTATIN POWDER 15 GM BOTTLE TP SCH ×2 (09:31→21:20)
[2020-07-16] MEDS: BACLOFEN 10 MG TABLET GT SCH ×2 (09:31→21:17)
[2020-07-16 19:20] VITALS: BP 119/57
[2020-07-16] MEDS: ATORVASTATIN 10 MG TABLET GT SCH (21:18)
[2020-07-16] MEDS: MIRALAX 17 GM POWD.PACK GT SCH (21:18)
[2020-07-17] MEDS: ALBUTEROL SULFATE 2.5 MG/3 ML NEBU NEB SCH ×6 (03:31→22:30)
[2020-07-17] MEDS: IPRATROPIUM BROMIDE 0.5 MG/2.5 ML NEBU NEB SCH ×6 (03:31→22:30)
[2020-07-17] MEDS: CHOLECALCIFEROL 1,000 UNIT TABLET GT SCH (05:46)
[2020-07-17] MEDS: BUDESONIDE 0.5 MG/2 ML NEBU NEB SCH ×2 (07:00→18:30)
[2020-07-17 07:26] VITALS: BP 105/65
[2020-07-17] MEDS: BACLOFEN 10 MG TABLET GT SCH ×2 (08:02→21:30)
[2020-07-17] MEDS: Z GUARD REMEDY PASTE 57 GM TUBE TOP SCH ×2 (08:02→21:33)
[2020-07-17] MEDS: CALCIUM CARBONATE 500 MG TABLET GT SCH ×2 (08:02→21:30)
[2020-07-17] MEDS: NUTRISOURCE FIBER 4 GM PACKET GT SCH ×2 (08:02→21:30)
[2020-07-17] MEDS: COD LIVER OIL/ZINC OXIDE OINT 113 GM TUBE TP SCH ×2 (08:02→21:33)
[2020-07-17] MEDS: DOCUSATE SODIUM 100 MG/10 ML LIQUID UDC GT SCH (08:02)
[2020-07-17] MEDS: NYSTATIN POWDER 15 GM BOTTLE TP SCH ×2 (08:03→21:33)
[2020-07-17] MEDS: HYDROGEN PEROXIDE 3% 118 ML BOTTLE TP SCH ×2 (08:56→18:30)
[2020-07-17] MEDS: JEVITY 1.2 1000 ML LIQUID GT PRN (17:20)
[2020-07-17 19:20] VITALS: BP 107/78
[2020-07-17] MEDS: MULTIVIT, IRON, MIN NO. 8, FA TABLET GT SCH (21:30)
[2020-07-17] MEDS: ATORVASTATIN 10 MG TABLET GT SCH (21:30)
[2020-07-18] MEDS: ALBUTEROL SULFATE 2.5 MG/3 ML NEBU NEB SCH ×6 (02:30→22:48)
[2020-07-18] MEDS: IPRATROPIUM BROMIDE 0.5 MG/2.5 ML NEBU NEB SCH ×6 (02:30→22:48)
[2020-07-18] MEDS: CHOLECALCIFEROL 1,000 UNIT TABLET GT SCH (05:42)
[2020-07-18] MEDS: BUDESONIDE 0.5 MG/2 ML NEBU NEB SCH ×2 (07:00→19:27)
[2020-07-18 07:21] VITALS: BP 117/68
[2020-07-18] MEDS: DOCUSATE SODIUM 100 MG/10 ML LIQUID UDC GT SCH (08:49)
[2020-07-18] MEDS: NUTRISOURCE FIBER 4 GM PACKET GT SCH ×2 (08:50→21:34)
[2020-07-18] MEDS: BACLOFEN 10 MG TABLET GT SCH ×2 (08:50→21:34)
[2020-07-18] MEDS: COD LIVER OIL/ZINC OXIDE OINT 113 GM TUBE TP SCH ×2 (08:50→21:35)
[2020-07-18] MEDS: CALCIUM CARBONATE 500 MG TABLET GT SCH ×2 (08:50→21:34)
[2020-07-18] MEDS: Z GUARD REMEDY PASTE 57 GM TUBE TOP SCH ×2 (08:50→21:35)
[2020-07-18] MEDS: NYSTATIN POWDER 15 GM BOTTLE TP SCH ×2 (09:00→21:35)
[2020-07-18] MEDS: HYDROGEN PEROXIDE 3% 118 ML BOTTLE TP SCH ×2 (09:00→20:27)
[2020-07-18] MEDS: JEVITY 1.2 1000 ML LIQUID GT PRN (15:15)
[2020-07-18 19:20] VITALS: BP 113/72
[2020-07-18] MEDS: ATORVASTATIN 10 MG TABLET GT SCH (21:34)
[2020-07-19] MEDS: IPRATROPIUM BROMIDE 0.5 MG/2.5 ML NEBU NEB SCH ×6 (03:00→23:02)
[2020-07-19] MEDS: ALBUTEROL SULFATE 2.5 MG/3 ML NEBU NEB SCH ×6 (03:01→23:02)
[2020-07-19] MEDS: CHOLECALCIFEROL 1,000 UNIT TABLET GT SCH (05:31)
[2020-07-19] MEDS: BUDESONIDE 0.5 MG/2 ML NEBU NEB SCH ×2 (07:08→18:30)
[2020-07-19] MEDS: HYDROGEN PEROXIDE 3% 118 ML BOTTLE TP SCH ×2 (07:11→18:31)
[2020-07-19 07:32] VITALS: BP 86/52
[2020-07-19] MEDS: NUTRISOURCE FIBER 4 GM PACKET GT SCH ×2 (08:23→20:01)
[2020-07-19] MEDS: CALCIUM CARBONATE 500 MG TABLET GT SCH ×2 (08:23→20:01)
[2020-07-19] MEDS: BACLOFEN 10 MG TABLET GT SCH ×2 (08:23→20:01)
[2020-07-19] MEDS: DOCUSATE SODIUM 100 MG/10 ML LIQUID UDC GT SCH (08:23)
[2020-07-19] MEDS: Z GUARD REMEDY PASTE 57 GM TUBE TOP SCH ×2 (08:23→20:01)
[2020-07-19] MEDS: COD LIVER OIL/ZINC OXIDE OINT 113 GM TUBE TP SCH ×2 (08:23→20:01)
[2020-07-19] MEDS: NYSTATIN POWDER 15 GM BOTTLE TP SCH (08:24)
[2020-07-19] MEDS: JEVITY 1.2 1000 ML LIQUID GT PRN (14:43)
--- NOTE | 2020-07-19 15:54 | NUR ---
Left message to sister Dione, regarding covid19 test will be done today.
[2020-07-19] MEDS: ATORVASTATIN 10 MG TABLET GT SCH (20:01)
[2020-07-19] MEDS: MULTIVIT, IRON, MIN NO. 8, FA TABLET GT SCH (20:01)
[2020-07-19] MEDS: MIRALAX 17 GM POWD.PACK GT SCH (20:01)
[2020-07-19 20:20] VITALS: BP 106/61
[2020-07-20] MEDS: ALBUTEROL SULFATE 2.5 MG/3 ML NEBU NEB SCH ×6 (02:51→22:57)
[2020-07-20] MEDS: IPRATROPIUM BROMIDE 0.5 MG/2.5 ML NEBU NEB SCH ×6 (02:51→22:57)
[2020-07-20] MEDS: BUDESONIDE 0.5 MG/2 ML NEBU NEB SCH ×2 (07:05→18:46)
[2020-07-20] MEDS: CHOLECALCIFEROL 1,000 UNIT TABLET GT SCH (07:12)
[2020-07-20 07:26] VITALS: BP 109/61
[2020-07-20] MEDS: BACLOFEN 10 MG TABLET GT SCH ×2 (08:12→21:00)
[2020-07-20] MEDS: DOCUSATE SODIUM 100 MG/10 ML LIQUID UDC GT SCH (08:12)
[2020-07-20] MEDS: Z GUARD REMEDY PASTE 57 GM TUBE TOP SCH ×2 (08:12→21:00)
[2020-07-20] MEDS: CALCIUM CARBONATE 500 MG TABLET GT SCH ×2 (08:12→21:00)
[2020-07-20] MEDS: NUTRISOURCE FIBER 4 GM PACKET GT SCH ×2 (08:12→21:00)
[2020-07-20] MEDS: COD LIVER OIL/ZINC OXIDE OINT 113 GM TUBE TP SCH ×2 (08:12→21:00)
[2020-07-20] MEDS: HYDROGEN PEROXIDE 3% 118 ML BOTTLE TP SCH ×2 (09:33→20:28)
[2020-07-20] MEDS: JEVITY 1.2 1000 ML LIQUID GT PRN (13:35)
[2020-07-20 20:11] VITALS: BP 135/68
[2020-07-20] MEDS: ATORVASTATIN 10 MG TABLET GT SCH (21:00)
[2020-07-21] MEDS: ALBUTEROL SULFATE 2.5 MG/3 ML NEBU NEB SCH ×6 (02:55→22:50)
[2020-07-21] MEDS: IPRATROPIUM BROMIDE 0.5 MG/2.5 ML NEBU NEB SCH ×6 (02:55→22:50)
[2020-07-21] MEDS: CHOLECALCIFEROL 1,000 UNIT TABLET GT SCH (05:32)
[2020-07-21] MEDS: BUDESONIDE 0.5 MG/2 ML NEBU NEB SCH ×2 (07:00→19:40)
[2020-07-21 07:47] VITALS: BP 90/57
[2020-07-21] MEDS: DOCUSATE SODIUM 100 MG/10 ML LIQUID UDC GT SCH (08:16)
[2020-07-21] MEDS: BACLOFEN 10 MG TABLET GT SCH ×2 (08:16→21:21)
[2020-07-21] MEDS: CALCIUM CARBONATE 500 MG TABLET GT SCH ×2 (08:17→21:22)
[2020-07-21] MEDS: NUTRISOURCE FIBER 4 GM PACKET GT SCH ×2 (08:17→21:22)
[2020-07-21] MEDS: Z GUARD REMEDY PASTE 57 GM TUBE TOP SCH ×2 (08:17→21:23)
[2020-07-21] MEDS: COD LIVER OIL/ZINC OXIDE OINT 113 GM TUBE TP SCH ×2 (08:17→21:23)
[2020-07-21] MEDS: HYDROGEN PEROXIDE 3% 118 ML BOTTLE TP SCH ×2 (08:39→20:59)
--- NOTE | 2020-07-21 16:00 | NUR ---
Sister sigrid eltno,Covid 19 test results are negative.
[2020-07-21] MEDS: ATORVASTATIN 10 MG TABLET GT SCH (21:21)
[2020-07-21] MEDS: MIRALAX 17 GM POWD.PACK GT SCH (21:22)
[2020-07-21] MEDS: MULTIVIT, IRON, MIN NO. 8, FA TABLET GT SCH (21:23)
[2020-07-21 22:35] VITALS: BP 92/58
[2020-07-22] MEDS: ALBUTEROL SULFATE 2.5 MG/3 ML NEBU NEB SCH ×6 (02:50→23:13)
[2020-07-22] MEDS: IPRATROPIUM BROMIDE 0.5 MG/2.5 ML NEBU NEB SCH ×6 (02:50→23:13)
[2020-07-22] MEDS: CHOLECALCIFEROL 1,000 UNIT TABLET GT SCH (05:38)
[2020-07-22] MEDS: BUDESONIDE 0.5 MG/2 ML NEBU NEB SCH ×2 (07:28→19:38)
[2020-07-22] MEDS: HYDROGEN PEROXIDE 3% 118 ML BOTTLE TP SCH ×2 (07:29→20:53)
[2020-07-22 07:40] VITALS: BP 104/47
[2020-07-22] MEDS: BACLOFEN 10 MG TABLET GT SCH ×2 (09:12→20:19)
[2020-07-22] MEDS: DOCUSATE SODIUM 100 MG/10 ML LIQUID UDC GT SCH (09:12)
[2020-07-22] MEDS: NUTRISOURCE FIBER 4 GM PACKET GT SCH ×2 (09:12→20:20)
[2020-07-22] MEDS: COD LIVER OIL/ZINC OXIDE OINT 113 GM TUBE TP SCH ×2 (09:13→20:20)
[2020-07-22] MEDS: CALCIUM CARBONATE 500 MG TABLET GT SCH ×2 (09:13→20:20)
[2020-07-22] MEDS: Z GUARD REMEDY PASTE 57 GM TUBE TOP SCH ×2 (09:13→20:20)
[2020-07-22] MEDS: JEVITY 1.2 1000 ML LIQUID GT PRN (17:14)
[2020-07-22 20:00] VITALS: BP 123/76
[2020-07-22] MEDS: ATORVASTATIN 10 MG TABLET GT SCH (20:19)
[2020-07-23] MEDS: IPRATROPIUM BROMIDE 0.5 MG/2.5 ML NEBU NEB SCH ×6 (02:58→22:56)
[2020-07-23] MEDS: ALBUTEROL SULFATE 2.5 MG/3 ML NEBU NEB SCH ×6 (02:58→22:56)
[2020-07-23] MEDS: CHOLECALCIFEROL 1,000 UNIT TABLET GT SCH (05:37)
[2020-07-23] MEDS: BUDESONIDE 0.5 MG/2 ML NEBU NEB SCH ×2 (07:00→18:50)
[2020-07-23 07:41] VITALS: BP 104/47
[2020-07-23] MEDS: Z GUARD REMEDY PASTE 57 GM TUBE TOP SCH ×2 (08:53→21:28)
[2020-07-23] MEDS: DOCUSATE SODIUM 100 MG/10 ML LIQUID UDC GT SCH (08:53)
[2020-07-23] MEDS: CALCIUM CARBONATE 500 MG TABLET GT SCH ×2 (08:53→21:28)
[2020-07-23] MEDS: COD LIVER OIL/ZINC OXIDE OINT 113 GM TUBE TP SCH ×2 (08:53→21:28)
[2020-07-23] MEDS: NUTRISOURCE FIBER 4 GM PACKET GT SCH ×2 (08:53→21:28)
[2020-07-23] MEDS: BACLOFEN 10 MG TABLET GT SCH ×2 (08:53→21:27)
[2020-07-23] MEDS: HYDROGEN PEROXIDE 3% 118 ML BOTTLE TP SCH ×2 (09:20→21:13)
[2020-07-23] MEDS: ATORVASTATIN 10 MG TABLET GT SCH (21:27)
[2020-07-23] MEDS: MIRALAX 17 GM POWD.PACK GT SCH (21:27)
[2020-07-23] MEDS: MULTIVIT, IRON, MIN NO. 8, FA TABLET GT SCH (21:28)
[2020-07-23 22:13] VITALS: BP 132/81
[2020-07-24] MEDS: IPRATROPIUM BROMIDE 0.5 MG/2.5 ML NEBU NEB SCH ×6 (02:53→22:50)
[2020-07-24] MEDS: ALBUTEROL SULFATE 2.5 MG/3 ML NEBU NEB SCH ×6 (02:53→22:50)
[2020-07-24] MEDS: CHOLECALCIFEROL 1,000 UNIT TABLET GT SCH (05:45)
[2020-07-24] MEDS: BUDESONIDE 0.5 MG/2 ML NEBU NEB SCH ×2 (07:16→19:50)
[2020-07-24 07:31] VITALS: BP 113/66
[2020-07-24] MEDS: CALCIUM CARBONATE 500 MG TABLET GT SCH ×2 (08:04→21:29)
[2020-07-24] MEDS: NUTRISOURCE FIBER 4 GM PACKET GT SCH ×2 (08:04→21:29)
[2020-07-24] MEDS: Z GUARD REMEDY PASTE 57 GM TUBE TOP SCH ×2 (08:04→21:29)
[2020-07-24] MEDS: DOCUSATE SODIUM 100 MG/10 ML LIQUID UDC GT SCH (08:04)
[2020-07-24] MEDS: BACLOFEN 10 MG TABLET GT SCH ×2 (08:04→21:29)
[2020-07-24] MEDS: COD LIVER OIL/ZINC OXIDE OINT 113 GM TUBE TP SCH ×2 (08:04→21:30)
[2020-07-24] MEDS: HYDROGEN PEROXIDE 3% 118 ML BOTTLE TP SCH ×2 (09:07→21:30)
[2020-07-24] MEDS: ATORVASTATIN 10 MG TABLET GT SCH (21:29)
[2020-07-24] MEDS: JEVITY 1.2 1000 ML LIQUID GT PRN (21:57)
[2020-07-24 22:14] VITALS: BP 123/64
[2020-07-25] MEDS: ALBUTEROL SULFATE 2.5 MG/3 ML NEBU NEB SCH ×6 (02:50→22:50)
[2020-07-25] MEDS: IPRATROPIUM BROMIDE 0.5 MG/2.5 ML NEBU NEB SCH ×6 (02:50→22:50)
[2020-07-25] MEDS: CHOLECALCIFEROL 1,000 UNIT TABLET GT SCH (05:38)
[2020-07-25] MEDS: HYDROGEN PEROXIDE 3% 118 ML BOTTLE TP SCH ×2 (07:10→21:12)
[2020-07-25] MEDS: BUDESONIDE 0.5 MG/2 ML NEBU NEB SCH ×2 (07:10→19:50)
[2020-07-25 07:32] VITALS: BP 116/77
[2020-07-25] MEDS: BACLOFEN 10 MG TABLET GT SCH ×2 (08:25→20:27)
[2020-07-25] MEDS: DOCUSATE SODIUM 100 MG/10 ML LIQUID UDC GT SCH (08:25)
[2020-07-25] MEDS: NUTRISOURCE FIBER 4 GM PACKET GT SCH ×2 (08:26→20:27)
[2020-07-25] MEDS: CALCIUM CARBONATE 500 MG TABLET GT SCH ×2 (08:26→20:27)
[2020-07-25] MEDS: COD LIVER OIL/ZINC OXIDE OINT 113 GM TUBE TP SCH ×4 (08:27→20:28)
[2020-07-25] MEDS: Z GUARD REMEDY PASTE 57 GM TUBE TOP SCH ×2 (08:27→20:27)
--- NOTE | 2020-07-25 09:29 | NUR ---
LOCAL [place] ORDER CARRIED OUT FROM DR REAVES FOR GT REDNESS.
[2020-07-25] MEDS: MULTIVIT, IRON, MIN NO. 8, FA TABLET GT SCH (20:27)
[2020-07-25] MEDS: ATORVASTATIN 10 MG TABLET GT SCH (20:27)
[2020-07-25 21:21] VITALS: BP 130/80
[2020-07-26] MEDS: ALBUTEROL SULFATE 2.5 MG/3 ML NEBU NEB SCH ×6 (02:50→22:35)
[2020-07-26] MEDS: IPRATROPIUM BROMIDE 0.5 MG/2.5 ML NEBU NEB SCH ×6 (02:50→22:35)
[2020-07-26] MEDS: CHOLECALCIFEROL 1,000 UNIT TABLET GT SCH (05:41)
[2020-07-26] MEDS: JEVITY 1.2 1000 ML LIQUID GT PRN (05:42)
[2020-07-26 07:23] VITALS: BP 138/66
[2020-07-26] MEDS: BUDESONIDE 0.5 MG/2 ML NEBU NEB SCH ×2 (07:24→18:55)
[2020-07-26] MEDS: HYDROGEN PEROXIDE 3% 118 ML BOTTLE TP SCH ×2 (07:24→18:55)
[2020-07-26] MEDS: BACLOFEN 10 MG TABLET GT SCH ×2 (08:16→21:20)
[2020-07-26] MEDS: NUTRISOURCE FIBER 4 GM PACKET GT SCH ×2 (08:16→21:21)
[2020-07-26] MEDS: DOCUSATE SODIUM 100 MG/10 ML LIQUID UDC GT SCH (08:16)
[2020-07-26] MEDS: CALCIUM CARBONATE 500 MG TABLET GT SCH ×2 (08:17→21:22)
[2020-07-26] MEDS: COD LIVER OIL/ZINC OXIDE OINT 113 GM TUBE TP SCH ×4 (08:17→21:24)
[2020-07-26] MEDS: Z GUARD REMEDY PASTE 57 GM TUBE TOP SCH ×2 (08:17→21:23)
[2020-07-26 20:12] VITALS: BP 124/65
[2020-07-26] MEDS: ATORVASTATIN 10 MG TABLET GT SCH (21:20)
[2020-07-26] MEDS: MIRALAX 17 GM POWD.PACK GT SCH (21:20)
[2020-07-27] MEDS: ALBUTEROL SULFATE 2.5 MG/3 ML NEBU NEB SCH ×6 (02:30→23:09)
[2020-07-27] MEDS: IPRATROPIUM BROMIDE 0.5 MG/2.5 ML NEBU NEB SCH ×6 (02:30→23:09)
[2020-07-27] MEDS: CHOLECALCIFEROL 1,000 UNIT TABLET GT SCH (05:38)
[2020-07-27] MEDS: BUDESONIDE 0.5 MG/2 ML NEBU NEB SCH ×2 (07:11→20:00)
[2020-07-27 07:30] VITALS: BP 122/80
[2020-07-27] MEDS: DOCUSATE SODIUM 100 MG/10 ML LIQUID UDC GT SCH (08:11)
[2020-07-27] MEDS: BACLOFEN 10 MG TABLET GT SCH ×2 (08:12→20:10)
[2020-07-27] MEDS: NUTRISOURCE FIBER 4 GM PACKET GT SCH ×2 (08:12→20:10)
[2020-07-27] MEDS: Z GUARD REMEDY PASTE 57 GM TUBE TOP SCH ×2 (08:14→20:12)
[2020-07-27] MEDS: COD LIVER OIL/ZINC OXIDE OINT 113 GM TUBE TP SCH ×4 (08:14→20:12)
[2020-07-27] MEDS: CALCIUM CARBONATE 500 MG TABLET GT SCH ×2 (08:14→20:11)
[2020-07-27] MEDS: HYDROGEN PEROXIDE 3% 118 ML BOTTLE TP SCH ×2 (09:48→20:50)
--- NOTE | 2020-07-27 15:30 | NUR ---
Seen and examined by Dr Palomino,no new orders.
[2020-07-27 19:57] VITALS: BP 131/70
[2020-07-27] MEDS: ATORVASTATIN 10 MG TABLET GT SCH (20:10)
[2020-07-27] MEDS: MULTIVIT, IRON, MIN NO. 8, FA TABLET GT SCH (20:11)
[2020-07-28] MEDS: JEVITY 1.2 1000 ML LIQUID GT PRN (03:02)
[2020-07-28] MEDS: ALBUTEROL SULFATE 2.5 MG/3 ML NEBU NEB SCH ×6 (03:11→22:50)
[2020-07-28] MEDS: IPRATROPIUM BROMIDE 0.5 MG/2.5 ML NEBU NEB SCH ×6 (03:11→22:50)
[2020-07-28] MEDS: CHOLECALCIFEROL 1,000 UNIT TABLET GT SCH (06:20)
[2020-07-28] MEDS: BUDESONIDE 0.5 MG/2 ML NEBU NEB SCH ×2 (07:10→19:56)
[2020-07-28 07:48] VITALS: BP 105/68
[2020-07-28] MEDS: Z GUARD REMEDY PASTE 57 GM TUBE TOP SCH ×2 (08:11→20:29)
[2020-07-28] MEDS: DOCUSATE SODIUM 100 MG/10 ML LIQUID UDC GT SCH (08:11)
[2020-07-28] MEDS: COD LIVER OIL/ZINC OXIDE OINT 113 GM TUBE TP SCH ×4 (08:11→20:29)
[2020-07-28] MEDS: NUTRISOURCE FIBER 4 GM PACKET GT SCH ×2 (08:11→20:25)
[2020-07-28] MEDS: BACLOFEN 10 MG TABLET GT SCH ×2 (08:11→20:24)
[2020-07-28] MEDS: CALCIUM CARBONATE 500 MG TABLET GT SCH ×2 (08:11→20:29)
[2020-07-28] MEDS: HYDROGEN PEROXIDE 3% 118 ML BOTTLE TP SCH ×2 (09:00→21:25)
[2020-07-28 19:56] VITALS: BP 118/74
[2020-07-28] MEDS: ATORVASTATIN 10 MG TABLET GT SCH (20:24)
[2020-07-28] MEDS: MIRALAX 17 GM POWD.PACK GT SCH (20:24)
[2020-07-29] MEDS: JEVITY 1.2 1000 ML LIQUID GT PRN (00:15)
[2020-07-29] MEDS: IPRATROPIUM BROMIDE 0.5 MG/2.5 ML NEBU NEB SCH ×6 (02:50→22:58)
[2020-07-29] MEDS: ALBUTEROL SULFATE 2.5 MG/3 ML NEBU NEB SCH ×6 (02:50→22:58)
[2020-07-29] MEDS: CHOLECALCIFEROL 1,000 UNIT TABLET GT SCH (05:14)
[2020-07-29 07:39] VITALS: BP 109/71
[2020-07-29] MEDS: BUDESONIDE 0.5 MG/2 ML NEBU NEB SCH ×2 (07:46→18:46)
[2020-07-29] MEDS: COD LIVER OIL/ZINC OXIDE OINT 113 GM TUBE TP SCH ×4 (09:00→21:25)
[2020-07-29] MEDS: CALCIUM CARBONATE 500 MG TABLET GT SCH ×2 (09:00→21:22)
[2020-07-29] MEDS: HYDROGEN PEROXIDE 3% 118 ML BOTTLE TP SCH ×2 (09:00→20:56)
[2020-07-29] MEDS: DOCUSATE SODIUM 100 MG/10 ML LIQUID UDC GT SCH (09:00)
[2020-07-29] MEDS: NUTRISOURCE FIBER 4 GM PACKET GT SCH ×2 (09:00→21:22)
[2020-07-29] MEDS: BACLOFEN 10 MG TABLET GT SCH ×2 (09:00→21:22)
[2020-07-29] MEDS: Z GUARD REMEDY PASTE 57 GM TUBE TOP SCH ×2 (09:00→21:23)
[2020-07-29 20:00] VITALS: BP 105/66
[2020-07-29] MEDS: ATORVASTATIN 10 MG TABLET GT SCH (21:22)
[2020-07-29] MEDS: MULTIVIT, IRON, MIN NO. 8, FA TABLET GT SCH (21:22)
[2020-07-30] MEDS: IPRATROPIUM BROMIDE 0.5 MG/2.5 ML NEBU NEB SCH ×6 (02:59→22:31)
[2020-07-30] MEDS: ALBUTEROL SULFATE 2.5 MG/3 ML NEBU NEB SCH ×6 (02:59→22:31)
[2020-07-30] MEDS: JEVITY 1.2 1000 ML LIQUID GT PRN (03:00)
[2020-07-30] MEDS: CHOLECALCIFEROL 1,000 UNIT TABLET GT SCH (05:44)
[2020-07-30] MEDS: BUDESONIDE 0.5 MG/2 ML NEBU NEB SCH ×2 (07:04→19:54)
[2020-07-30 07:28] VITALS: BP 105/63
[2020-07-30] MEDS: DOCUSATE SODIUM 100 MG/10 ML LIQUID UDC GT SCH (08:25)
[2020-07-30] MEDS: BACLOFEN 10 MG TABLET GT SCH ×2 (08:26→21:00)
[2020-07-30] MEDS: NUTRISOURCE FIBER 4 GM PACKET GT SCH ×2 (08:26→21:00)
[2020-07-30] MEDS: Z GUARD REMEDY PASTE 57 GM TUBE TOP SCH ×2 (08:27→21:00)
[2020-07-30] MEDS: CALCIUM CARBONATE 500 MG TABLET GT SCH ×2 (08:27→21:00)
[2020-07-30] MEDS: COD LIVER OIL/ZINC OXIDE OINT 113 GM TUBE TP SCH ×4 (08:28→21:00)
[2020-07-30] MEDS: HYDROGEN PEROXIDE 3% 118 ML BOTTLE TP SCH ×2 (08:30→21:21)
--- NOTE | 2020-07-30 11:04 | NUR ---
Sister Dione notified of annual ppd test to be done, sister in agreement with ppd test.
[2020-07-30 20:00] VITALS: BP 135/86
[2020-07-30] MEDS: MIRALAX 17 GM POWD.PACK GT SCH (21:00)
[2020-07-30] MEDS: ATORVASTATIN 10 MG TABLET GT SCH (21:00)
[2020-07-31] MEDS: ALBUTEROL SULFATE 2.5 MG/3 ML NEBU NEB SCH ×6 (02:45→22:50)
[2020-07-31] MEDS: IPRATROPIUM BROMIDE 0.5 MG/2.5 ML NEBU NEB SCH ×6 (02:45→22:50)
[2020-07-31] MEDS: JEVITY 1.2 1000 ML LIQUID GT PRN (05:24)
[2020-07-31] MEDS: CHOLECALCIFEROL 1,000 UNIT TABLET GT SCH (06:18)
[2020-07-31 07:43] VITALS: BP 119/72
[2020-07-31] MEDS: HYDROGEN PEROXIDE 3% 118 ML BOTTLE TP SCH ×2 (07:46→21:29)
[2020-07-31] MEDS: BUDESONIDE 0.5 MG/2 ML NEBU NEB SCH ×2 (07:46→19:50)
[2020-07-31] MEDS: BACLOFEN 10 MG TABLET GT SCH ×2 (08:28→20:36)
[2020-07-31] MEDS: DOCUSATE SODIUM 100 MG/10 ML LIQUID UDC GT SCH (08:28)
[2020-07-31] MEDS: NUTRISOURCE FIBER 4 GM PACKET GT SCH ×2 (08:29→20:36)
[2020-07-31] MEDS: CALCIUM CARBONATE 500 MG TABLET GT SCH ×2 (08:32→20:36)
[2020-07-31] MEDS: COD LIVER OIL/ZINC OXIDE OINT 113 GM TUBE TP SCH ×4 (08:32→20:36)
[2020-07-31] MEDS: Z GUARD REMEDY PASTE 57 GM TUBE TOP SCH ×2 (08:32→20:36)
[2020-07-31] MEDS: MULTIVIT, IRON, MIN NO. 8, FA TABLET GT SCH (20:36)
[2020-07-31] MEDS: ATORVASTATIN 10 MG TABLET GT SCH (20:36)
[2020-07-31 21:59] VITALS: BP 123/80
[2020-08-01] MEDS: IPRATROPIUM BROMIDE 0.5 MG/2.5 ML NEBU NEB SCH ×6 (02:50→22:30)
[2020-08-01] MEDS: ALBUTEROL SULFATE 2.5 MG/3 ML NEBU NEB SCH ×6 (02:50→22:30)
[2020-08-01] MEDS: CHOLECALCIFEROL 1,000 UNIT TABLET GT SCH (05:56)
[2020-08-01] MEDS: BUDESONIDE 0.5 MG/2 ML NEBU NEB SCH ×2 (07:13→18:53)
[2020-08-01 07:32] VITALS: BP 127/81
[2020-08-01] MEDS: DOCUSATE SODIUM 100 MG/10 ML LIQUID UDC GT SCH (08:49)
[2020-08-01] MEDS: BACLOFEN 10 MG TABLET GT SCH ×2 (08:49→20:20)
[2020-08-01] MEDS: CALCIUM CARBONATE 500 MG TABLET GT SCH ×2 (08:49→20:20)
[2020-08-01] MEDS: NUTRISOURCE FIBER 4 GM PACKET GT SCH ×2 (08:49→20:20)
[2020-08-01] MEDS: Z GUARD REMEDY PASTE 57 GM TUBE TOP SCH ×2 (08:49→20:20)
[2020-08-01] MEDS: COD LIVER OIL/ZINC OXIDE OINT 113 GM TUBE TP SCH ×4 (08:49→20:20)
[2020-08-01] MEDS: HYDROGEN PEROXIDE 3% 118 ML BOTTLE TP SCH ×2 (09:52→18:58)
[2020-08-01 20:16] VITALS: BP 121/67
[2020-08-01] MEDS: ATORVASTATIN 10 MG TABLET GT SCH (20:20)
[2020-08-02] MEDS: ALBUTEROL SULFATE 2.5 MG/3 ML NEBU NEB SCH ×6 (02:30→22:30)
[2020-08-02] MEDS: IPRATROPIUM BROMIDE 0.5 MG/2.5 ML NEBU NEB SCH ×6 (02:30→22:30)
[2020-08-02] MEDS: CHOLECALCIFEROL 1,000 UNIT TABLET GT SCH (06:35)
[2020-08-02] MEDS: JEVITY 1.2 1000 ML LIQUID GT PRN (06:35)
[2020-08-02] MEDS: BUDESONIDE 0.5 MG/2 ML NEBU NEB SCH ×2 (07:17→19:58)
[2020-08-02 07:38] VITALS: BP 123/78
[2020-08-02] MEDS: NUTRISOURCE FIBER 4 GM PACKET GT SCH ×2 (08:35→20:39)
[2020-08-02] MEDS: Z GUARD REMEDY PASTE 57 GM TUBE TOP SCH ×2 (08:35→20:40)
[2020-08-02] MEDS: CALCIUM CARBONATE 500 MG TABLET GT SCH ×2 (08:35→20:40)
[2020-08-02] MEDS: COD LIVER OIL/ZINC OXIDE OINT 113 GM TUBE TP SCH ×4 (08:35→20:40)
[2020-08-02] MEDS: BACLOFEN 10 MG TABLET GT SCH ×2 (08:35→20:39)
[2020-08-02] MEDS: DOCUSATE SODIUM 100 MG/10 ML LIQUID UDC GT SCH (08:35)
[2020-08-02] MEDS: HYDROGEN PEROXIDE 3% 118 ML BOTTLE TP SCH ×2 (11:57→19:59)
--- NOTE | 2020-08-02 14:10 | NUR ---
Sister notified covid19 test will be done, sister requested not to be called every time when test is done.
[2020-08-02 20:03] VITALS: BP 126/84
[2020-08-02] MEDS: MIRALAX 17 GM POWD.PACK GT SCH (20:39)
[2020-08-02] MEDS: ATORVASTATIN 10 MG TABLET GT SCH (20:39)
[2020-08-02] MEDS: MULTIVIT, IRON, MIN NO. 8, FA TABLET GT SCH (20:40)
[2020-08-03] MEDS: ALBUTEROL SULFATE 2.5 MG/3 ML NEBU NEB SCH ×6 (02:30→23:43)
[2020-08-03] MEDS: IPRATROPIUM BROMIDE 0.5 MG/2.5 ML NEBU NEB SCH ×6 (02:30→23:43)
[2020-08-03] MEDS: JEVITY 1.2 1000 ML LIQUID GT PRN (05:00)
[2020-08-03] MEDS: CHOLECALCIFEROL 1,000 UNIT TABLET GT SCH (05:29)
[2020-08-03] MEDS: HYDROGEN PEROXIDE 3% 118 ML BOTTLE TP SCH ×2 (07:00→21:00)
[2020-08-03] MEDS: BUDESONIDE 0.5 MG/2 ML NEBU NEB SCH ×2 (07:00→19:03)
[2020-08-03 07:22] VITALS: BP 97/57
[2020-08-03] MEDS: CALCIUM CARBONATE 500 MG TABLET GT SCH ×2 (08:54→21:34)
[2020-08-03] MEDS: Z GUARD REMEDY PASTE 57 GM TUBE TOP SCH ×2 (08:54→21:34)
[2020-08-03] MEDS: DOCUSATE SODIUM 100 MG/10 ML LIQUID UDC GT SCH (08:54)
[2020-08-03] MEDS: COD LIVER OIL/ZINC OXIDE OINT 113 GM TUBE TP SCH ×4 (08:54→21:35)
[2020-08-03] MEDS: NUTRISOURCE FIBER 4 GM PACKET GT SCH ×2 (08:54→21:34)
[2020-08-03] MEDS: BACLOFEN 10 MG TABLET GT SCH ×2 (08:54→21:33)
--- NOTE | 2020-08-03 15:07 | NUR ---
INTERDISCIPLINARY PLAN OF CARE CONFERENCE was held today. Patient's family lives [id number] and they do not participate in the IDT meetings. Dr. Underwood and the Interdisciplinary Team reviewed the current plan of care in detail. RN reported on patient's medical condition and current skins treatment. See RN IDT conference notes. No major changes in medical condition were reported by nursing or by other disciplines. See all other disciplines IDT notes and physician's progress notes for additional details.
[2020-08-03 19:56] VITALS: BP 107/59
[2020-08-03] MEDS: ATORVASTATIN 10 MG TABLET GT SCH (21:33)
[2020-08-04] MEDS: IPRATROPIUM BROMIDE 0.5 MG/2.5 ML NEBU NEB SCH ×6 (03:00→22:59)
[2020-08-04] MEDS: ALBUTEROL SULFATE 2.5 MG/3 ML NEBU NEB SCH ×6 (03:00→22:59)
[2020-08-04] MEDS: CHOLECALCIFEROL 1,000 UNIT TABLET GT SCH (05:44)
[2020-08-04] MEDS: BUDESONIDE 0.5 MG/2 ML NEBU NEB SCH ×2 (06:56→19:02)
[2020-08-04 07:27] VITALS: BP 80/37
[2020-08-04] MEDS: BACLOFEN 10 MG TABLET GT SCH ×2 (08:55→21:26)
[2020-08-04] MEDS: COD LIVER OIL/ZINC OXIDE OINT 113 GM TUBE TP SCH ×4 (08:55→21:31)
[2020-08-04] MEDS: NUTRISOURCE FIBER 4 GM PACKET GT SCH ×2 (08:55→21:28)
[2020-08-04] MEDS: DOCUSATE SODIUM 100 MG/10 ML LIQUID UDC GT SCH (08:55)
[2020-08-04] MEDS: CALCIUM CARBONATE 500 MG TABLET GT SCH ×2 (08:55→21:28)
[2020-08-04] MEDS: Z GUARD REMEDY PASTE 57 GM TUBE TOP SCH ×2 (08:55→21:31)
[2020-08-04] MEDS: HYDROGEN PEROXIDE 3% 118 ML BOTTLE TP SCH ×2 (09:00→20:44)
--- NOTE | 2020-08-04 19:00 | NUR ---
Sister notified covid19 test was negative.
[2020-08-04 20:03] VITALS: BP 115/59
[2020-08-04] MEDS: ATORVASTATIN 10 MG TABLET GT SCH (21:26)
[2020-08-04] MEDS: MIRALAX 17 GM POWD.PACK GT SCH (21:27)
[2020-08-04] MEDS: MULTIVIT, IRON, MIN NO. 8, FA TABLET GT SCH (21:31)
[2020-08-05] MEDS: IPRATROPIUM BROMIDE 0.5 MG/2.5 ML NEBU NEB SCH ×6 (02:53→22:57)
[2020-08-05] MEDS: ALBUTEROL SULFATE 2.5 MG/3 ML NEBU NEB SCH ×6 (02:53→22:57)
[2020-08-05] MEDS: CHOLECALCIFEROL 1,000 UNIT TABLET GT SCH (05:46)
[2020-08-05] MEDS: BUDESONIDE 0.5 MG/2 ML NEBU NEB SCH ×2 (07:18→18:53)
[2020-08-05] MEDS: HYDROGEN PEROXIDE 3% 118 ML BOTTLE TP SCH ×2 (07:18→20:58)
[2020-08-05 07:33] VITALS: BP 108/72
[2020-08-05] MEDS: DOCUSATE SODIUM 100 MG/10 ML LIQUID UDC GT SCH (09:10)
[2020-08-05] MEDS: Z GUARD REMEDY PASTE 57 GM TUBE TOP SCH ×2 (09:10→21:32)
[2020-08-05] MEDS: CALCIUM CARBONATE 500 MG TABLET GT SCH ×2 (09:10→21:31)
[2020-08-05] MEDS: NUTRISOURCE FIBER 4 GM PACKET GT SCH ×2 (09:10→21:30)
[2020-08-05] MEDS: BACLOFEN 10 MG TABLET GT SCH ×2 (09:10→21:30)
[2020-08-05] MEDS: COD LIVER OIL/ZINC OXIDE OINT 113 GM TUBE TP SCH ×3 (09:10→21:32)
--- NOTE | 2020-08-05 16:41 | NUR ---
SEEN BY AND DR. REAVES AND WITH NNO.
[2020-08-05] MEDS: ATORVASTATIN 10 MG TABLET GT SCH (21:30)
[2020-08-05 22:40] VITALS: BP 138/80
[2020-08-06] MEDS: IPRATROPIUM BROMIDE 0.5 MG/2.5 ML NEBU NEB SCH ×6 (02:58→23:32)
[2020-08-06] MEDS: ALBUTEROL SULFATE 2.5 MG/3 ML NEBU NEB SCH ×6 (02:58→23:32)
[2020-08-06] MEDS: CHOLECALCIFEROL 1,000 UNIT TABLET GT SCH (05:34)
[2020-08-06] MEDS: BUDESONIDE 0.5 MG/2 ML NEBU NEB SCH ×2 (07:08→19:01)
[2020-08-06 07:27] VITALS: BP 104/75
[2020-08-06] MEDS: HYDROGEN PEROXIDE 3% 118 ML BOTTLE TP SCH ×2 (08:30→21:00)
[2020-08-06] MEDS: NUTRISOURCE FIBER 4 GM PACKET GT SCH ×2 (08:59→21:37)
[2020-08-06] MEDS: Z GUARD REMEDY PASTE 57 GM TUBE TOP SCH ×2 (08:59→21:38)
[2020-08-06] MEDS: BACLOFEN 10 MG TABLET GT SCH ×2 (08:59→21:37)
[2020-08-06] MEDS: DOCUSATE SODIUM 100 MG/10 ML LIQUID UDC GT SCH (08:59)
[2020-08-06] MEDS: CALCIUM CARBONATE 500 MG TABLET GT SCH ×2 (08:59→21:37)
[2020-08-06] MEDS: COD LIVER OIL/ZINC OXIDE OINT 113 GM TUBE TP SCH ×2 (09:00→21:38)
--- NOTE | 2020-08-06 18:13 | NUR ---
PT. NOTED WITH PERIOD.
[2020-08-06] MEDS: MULTIVIT, IRON, MIN NO. 8, FA TABLET GT SCH (21:37)
[2020-08-06] MEDS: MIRALAX 17 GM POWD.PACK GT SCH (21:37)
[2020-08-06] MEDS: ATORVASTATIN 10 MG TABLET GT SCH (21:37)
[2020-08-06 22:05] VITALS: BP 122/78
--- NOTE | 2020-08-06 23:30 | NUR ---
For COVID-19 testing tomorrow as per [facility] requirement.
[2020-08-07] MEDS: IPRATROPIUM BROMIDE 0.5 MG/2.5 ML NEBU NEB SCH ×6 (03:11→23:03)
[2020-08-07] MEDS: ALBUTEROL SULFATE 2.5 MG/3 ML NEBU NEB SCH ×6 (03:11→23:03)
[2020-08-07] MEDS: JEVITY 1.2 1000 ML LIQUID GT PRN (05:00)
[2020-08-07] MEDS: CHOLECALCIFEROL 1,000 UNIT TABLET GT SCH (05:52)
[2020-08-07] MEDS: BUDESONIDE 0.5 MG/2 ML NEBU NEB SCH ×2 (07:11→19:00)
[2020-08-07 07:28] VITALS: BP 113/72
[2020-08-07] MEDS: Z GUARD REMEDY PASTE 57 GM TUBE TOP SCH ×2 (08:30→20:27)
[2020-08-07] MEDS: NUTRISOURCE FIBER 4 GM PACKET GT SCH ×2 (08:30→20:26)
[2020-08-07] MEDS: DOCUSATE SODIUM 100 MG/10 ML LIQUID UDC GT SCH (08:30)
[2020-08-07] MEDS: COD LIVER OIL/ZINC OXIDE OINT 113 GM TUBE TP SCH ×2 (08:30→20:27)
[2020-08-07] MEDS: BACLOFEN 10 MG TABLET GT SCH ×2 (08:30→20:26)
[2020-08-07] MEDS: CALCIUM CARBONATE 500 MG TABLET GT SCH ×2 (08:30→20:26)
[2020-08-07] MEDS: HYDROGEN PEROXIDE 3% 118 ML BOTTLE TP SCH ×2 (08:57→20:30)
--- NOTE | 2020-08-07 10:00 | NUR ---
PT'S RESP. CONSTITUTION PARTY ALEXA AWARE THAT PT. WILL HAVE COVID 19 TEST TODAY NAD IN AGREEMENT.
[2020-08-07] MEDS: ATORVASTATIN 10 MG TABLET GT SCH (20:26)
[2020-08-07 21:56] VITALS: BP 105/68
[2020-08-08] MEDS: ALBUTEROL SULFATE 2.5 MG/3 ML NEBU NEB SCH ×6 (02:36→23:27)
[2020-08-08] MEDS: IPRATROPIUM BROMIDE 0.5 MG/2.5 ML NEBU NEB SCH ×6 (02:36→23:27)
[2020-08-08] MEDS: CHOLECALCIFEROL 1,000 UNIT TABLET GT SCH (06:37)
[2020-08-08] MEDS: BUDESONIDE 0.5 MG/2 ML NEBU NEB SCH ×2 (07:13→19:19)
[2020-08-08 07:24] VITALS: BP 142/89
[2020-08-08] MEDS: HYDROGEN PEROXIDE 3% 118 ML BOTTLE TP SCH ×2 (08:40→21:32)
[2020-08-08] MEDS: COD LIVER OIL/ZINC OXIDE OINT 113 GM TUBE TP SCH ×2 (09:18→20:00)
[2020-08-08] MEDS: Z GUARD REMEDY PASTE 57 GM TUBE TOP SCH ×2 (09:18→20:00)
[2020-08-08] MEDS: NUTRISOURCE FIBER 4 GM PACKET GT SCH ×2 (09:18→20:00)
[2020-08-08] MEDS: DOCUSATE SODIUM 100 MG/10 ML LIQUID UDC GT SCH (09:18)
[2020-08-08] MEDS: BACLOFEN 10 MG TABLET GT SCH ×2 (09:18→20:00)
[2020-08-08] MEDS: CALCIUM CARBONATE 500 MG TABLET GT SCH ×2 (09:18→20:00)
--- NOTE | 2020-08-08 18:43 | NUR ---
PT'S RESP. ALLIANCE PARTY ALEXA AWARE THAT PT. IS NEGATIVE FOR COVID 19 .
[2020-08-08] MEDS: MULTIVIT, IRON, MIN NO. 8, FA TABLET GT SCH (20:00)
[2020-08-08] MEDS: ATORVASTATIN 10 MG TABLET GT SCH (20:00)
[2020-08-08 22:02] VITALS: BP 140/85
[2020-08-09] MEDS: IPRATROPIUM BROMIDE 0.5 MG/2.5 ML NEBU NEB SCH ×6 (03:01→22:56)
[2020-08-09] MEDS: ALBUTEROL SULFATE 2.5 MG/3 ML NEBU NEB SCH ×6 (03:01→22:56)
[2020-08-09] MEDS: CHOLECALCIFEROL 1,000 UNIT TABLET GT SCH (06:56)
[2020-08-09 07:30] VITALS: BP 97/55
[2020-08-09] MEDS: BUDESONIDE 0.5 MG/2 ML NEBU NEB SCH ×2 (07:50→18:51)
[2020-08-09] MEDS: HYDROGEN PEROXIDE 3% 118 ML BOTTLE TP SCH ×2 (07:51→21:12)
[2020-08-09] MEDS: DOCUSATE SODIUM 100 MG/10 ML LIQUID UDC GT SCH (07:55)
[2020-08-09] MEDS: CALCIUM CARBONATE 500 MG TABLET GT SCH ×2 (07:55→21:37)
[2020-08-09] MEDS: BACLOFEN 10 MG TABLET GT SCH ×2 (07:55→21:37)
[2020-08-09] MEDS: Z GUARD REMEDY PASTE 57 GM TUBE TOP SCH ×2 (07:55→21:37)
[2020-08-09] MEDS: COD LIVER OIL/ZINC OXIDE OINT 113 GM TUBE TP SCH ×2 (07:55→21:38)
[2020-08-09] MEDS: NUTRISOURCE FIBER 4 GM PACKET GT SCH ×2 (07:55→21:37)
--- NOTE | 2020-08-09 19:19 | NUR ---
PT. WITH HER PERIOD.
[2020-08-09 20:00] VITALS: BP 120/72
[2020-08-09] MEDS: ATORVASTATIN 10 MG TABLET GT SCH (21:37)
[2020-08-09] MEDS: MIRALAX 17 GM POWD.PACK GT SCH (21:37)
[2020-08-10] MEDS: IPRATROPIUM BROMIDE 0.5 MG/2.5 ML NEBU NEB SCH ×6 (02:48→23:00)
[2020-08-10] MEDS: ALBUTEROL SULFATE 2.5 MG/3 ML NEBU NEB SCH ×6 (02:48→23:00)
[2020-08-10] MEDS: JEVITY 1.2 1000 ML LIQUID GT PRN (06:46)
[2020-08-10] MEDS: CHOLECALCIFEROL 1,000 UNIT TABLET GT SCH (06:46)
[2020-08-10] MEDS: BUDESONIDE 0.5 MG/2 ML NEBU NEB SCH ×2 (07:16→18:47)
[2020-08-10 07:22] VITALS: BP 108/60
[2020-08-10] MEDS: HYDROGEN PEROXIDE 3% 118 ML BOTTLE TP SCH ×2 (08:51→20:52)
[2020-08-10] MEDS: CALCIUM CARBONATE 500 MG TABLET GT SCH ×2 (09:02→21:28)
[2020-08-10] MEDS: NUTRISOURCE FIBER 4 GM PACKET GT SCH ×2 (09:02→21:28)
[2020-08-10] MEDS: BACLOFEN 10 MG TABLET GT SCH ×2 (09:02→21:28)
[2020-08-10] MEDS: DOCUSATE SODIUM 100 MG/10 ML LIQUID UDC GT SCH (09:02)
[2020-08-10] MEDS: COD LIVER OIL/ZINC OXIDE OINT 113 GM TUBE TP SCH ×2 (09:03→21:30)
[2020-08-10] MEDS: Z GUARD REMEDY PASTE 57 GM TUBE TOP SCH ×2 (09:03→21:30)
[2020-08-10 20:00] VITALS: BP 131/79
[2020-08-10] MEDS: ATORVASTATIN 10 MG TABLET GT SCH (21:28)
[2020-08-10] MEDS: MULTIVIT, IRON, MIN NO. 8, FA TABLET GT SCH (21:30)
[2020-08-11] MEDS: JEVITY 1.2 1000 ML LIQUID GT PRN (03:45)
[2020-08-11] MEDS: ALBUTEROL SULFATE 2.5 MG/3 ML NEBU NEB SCH ×6 (04:25→23:21)
[2020-08-11] MEDS: IPRATROPIUM BROMIDE 0.5 MG/2.5 ML NEBU NEB SCH ×6 (04:25→23:20)
[2020-08-11] MEDS: CHOLECALCIFEROL 1,000 UNIT TABLET GT SCH (05:56)
--- NOTE | 2020-08-11 06:26 | NUR ---
Patient still with her menses, good reed care rendered, kept clean and comfortable.
--- NOTE | 2020-08-11 06:28 | NUR ---
Seen and examined by Dorothy Rhodes NP with no new orders.
[2020-08-11 07:24] VITALS: BP 99/60
[2020-08-11] MEDS: BUDESONIDE 0.5 MG/2 ML NEBU NEB SCH ×2 (07:36→19:38)
[2020-08-11] MEDS: CALCIUM CARBONATE 500 MG TABLET GT SCH ×2 (08:18→21:00)
[2020-08-11] MEDS: NUTRISOURCE FIBER 4 GM PACKET GT SCH ×2 (08:18→21:00)
[2020-08-11] MEDS: COD LIVER OIL/ZINC OXIDE OINT 113 GM TUBE TP SCH ×2 (08:18→21:00)
[2020-08-11] MEDS: DOCUSATE SODIUM 100 MG/10 ML LIQUID UDC GT SCH (08:18)
[2020-08-11] MEDS: BACLOFEN 10 MG TABLET GT SCH ×2 (08:18→21:00)
[2020-08-11] MEDS: Z GUARD REMEDY PASTE 57 GM TUBE TOP SCH ×2 (08:18→21:00)
[2020-08-11] MEDS: HYDROGEN PEROXIDE 3% 118 ML BOTTLE TP SCH ×2 (11:02→21:35)
--- NOTE | 2020-08-11 16:22 | NUR ---
spoke to Dr Palomino notified pt has her period aprox last week ,stop and she re started with vaginal bleeding with blood clots,with new orders noted.
[2020-08-11 17:22] LABS: BASOPHILS % (AUTO) 0.5 % (0.0-2.0); EOSINOPHILS # (AUTO) 0.2 K/uL (0.0-0.7); EOSINOPHILS % (AUTO) 5.1 % (0.0-7.0); HEMATOCRIT 31.2 % (31.2-41.9); HEMOGLOBIN 10.4 g/dL (10.9-14.3); LYMPHOCYTES # (AUTO) 1.3 K/uL (20.0-40.0); LYMPHOCYTES % (AUTO) 28.8 % (20.5-51.5); MEAN CORPUSCULAR HGB CONC 34 g/dL (32.3-35.6); MEAN CORPUSCULAR VOLUME 95.4 fL (75.5-95.3); MONOCYTES # (AUTO) 0.6 K/uL (2.0-10.0); MONOCYTES % (AUTO) 12.8 % (0.0-11.0); NEUTROPHILS # (AUTO) 2.5 K/uL (1.8-8.9); NEUTROPHILS % (AUTO) 52.8 % (38.5-71.5); PLATELET COUNT (AUTO) 162 K/uL (179-408); RED BLOOD CELL COUNT(AUTO) 3.27 MIL/uL (3.63-4.92); WHITE BLOOD COUNT (AUTO) 4.7 K/uL (3.8-11.8)
[2020-08-11 17:35] LABS: BILIRUBIN,TOTAL 0.3 mg/dL (0.2-1.0); CREATININE 0.5 mg/dL (0.6-1.3); POTASSIUM 4.1 mmol/L (3.5-5.1); TOTAL PROTEIN, SERUM 6.8 g/dL (6.4-8.2)
--- NOTE | 2020-08-11 19:45 | NUR ---
Labs done,hemog 10.4,Na 147,pelvic ultrasound will be done tomorrow
[2020-08-11 20:00] VITALS: BP 132/60
[2020-08-11] MEDS: ATORVASTATIN 10 MG TABLET GT SCH (21:00)
[2020-08-11] MEDS: MIRALAX 17 GM POWD.PACK GT SCH (21:00)
--- NOTE | 2020-08-12 02:00 | NUR ---
Patient still have menstrual period, cleaned and kept dry and comfortable, no signs of pain or discomfort.
[2020-08-12] MEDS: ALBUTEROL SULFATE 2.5 MG/3 ML NEBU NEB SCH ×6 (02:57→23:04)
[2020-08-12] MEDS: IPRATROPIUM BROMIDE 0.5 MG/2.5 ML NEBU NEB SCH ×6 (02:57→23:04)
[2020-08-12] MEDS: JEVITY 1.2 1000 ML LIQUID GT PRN ×2 (05:32→14:23)
[2020-08-12] MEDS: CHOLECALCIFEROL 1,000 UNIT TABLET GT SCH (05:32)
[2020-08-12] MEDS: BUDESONIDE 0.5 MG/2 ML NEBU NEB SCH ×2 (07:10→18:21)
[2020-08-12] MEDS: HYDROGEN PEROXIDE 3% 118 ML BOTTLE TP SCH ×2 (07:10→21:31)
[2020-08-12 07:29] VITALS: BP 119/71
[2020-08-12] MEDS: NUTRISOURCE FIBER 4 GM PACKET GT SCH ×2 (08:54→21:00)
[2020-08-12] MEDS: Z GUARD REMEDY PASTE 57 GM TUBE TOP SCH ×2 (08:54→21:00)
[2020-08-12] MEDS: CALCIUM CARBONATE 500 MG TABLET GT SCH ×2 (08:54→21:00)
[2020-08-12] MEDS: DOCUSATE SODIUM 100 MG/10 ML LIQUID UDC GT SCH (08:54)
[2020-08-12] MEDS: BACLOFEN 10 MG TABLET GT SCH ×2 (08:54→21:00)
[2020-08-12] MEDS: COD LIVER OIL/ZINC OXIDE OINT 113 GM TUBE TP SCH ×2 (08:54→21:00)
--- NOTE | 2020-08-12 16:04 | NUR ---
Seen and examined by Dr Palomino with new orders noted,notified pt still has vaginal bleeding with blood clots.
[2020-08-12 17:38] LABS: BASOPHILS % (AUTO) 0.5 % (0.0-2.0); EOSINOPHILS # (AUTO) 0.2 K/uL (0.0-0.7); EOSINOPHILS % (AUTO) 5.8 % (0.0-7.0); HEMATOCRIT 31.9 % (31.2-41.9); HEMOGLOBIN 10.8 g/dL (10.9-14.3); LYMPHOCYTES % (AUTO) 27.3 % (20.5-51.5); MEAN CORPUSCULAR HGB CONC 34 g/dL (32.3-35.6); MEAN CORPUSCULAR VOLUME 94.9 fL (75.5-95.3); MONOCYTES # (AUTO) 0.3 K/uL (2.0-10.0); MONOCYTES % (AUTO) 8.6 % (0.0-11.0); NEUTROPHILS # (AUTO) 2.2 K/uL (1.8-8.9); NEUTROPHILS % (AUTO) 57.8 % (38.5-71.5); PLATELET COUNT (AUTO) 181 K/uL (179-408); RED BLOOD CELL COUNT(AUTO) 3.36 MIL/uL (3.63-4.92); WHITE BLOOD COUNT (AUTO) 3.8 K/uL (3.8-11.8)
[2020-08-12 17:42] LABS: IRON, SERUM 54 ug/dL (50-175)
[2020-08-12 17:55] LABS: FERRITIN 33 ng/mL (8-252)
[2020-08-12 20:00] VITALS: BP 131/86
[2020-08-12] MEDS: ATORVASTATIN 10 MG TABLET GT SCH (21:00)
[2020-08-12] MEDS: MULTIVIT, IRON, MIN NO. 8, FA TABLET GT SCH (21:00)
--- NOTE | 2020-08-12 21:34 | NUR ---
No blood on diaper; no menstrual period at this time, kept clean and dry, will continue monitor.
[2020-08-13] MEDS: IPRATROPIUM BROMIDE 0.5 MG/2.5 ML NEBU NEB SCH ×6 (03:06→22:50)
[2020-08-13] MEDS: ALBUTEROL SULFATE 2.5 MG/3 ML NEBU NEB SCH ×6 (03:06→22:50)
[2020-08-13] MEDS: CHOLECALCIFEROL 1,000 UNIT TABLET GT SCH (05:33)
[2020-08-13] MEDS: BUDESONIDE 0.5 MG/2 ML NEBU NEB SCH ×2 (07:11→19:51)
[2020-08-13 07:30] VITALS: BP 109/73
[2020-08-13] MEDS: CALCIUM CARBONATE 500 MG TABLET GT SCH ×2 (08:04→21:00)
[2020-08-13] MEDS: COD LIVER OIL/ZINC OXIDE OINT 113 GM TUBE TP SCH ×2 (08:04→21:00)
[2020-08-13] MEDS: NUTRISOURCE FIBER 4 GM PACKET GT SCH ×2 (08:04→21:00)
[2020-08-13] MEDS: DOCUSATE SODIUM 100 MG/10 ML LIQUID UDC GT SCH (08:04)
[2020-08-13] MEDS: BACLOFEN 10 MG TABLET GT SCH ×2 (08:04→21:00)
[2020-08-13] MEDS: Z GUARD REMEDY PASTE 57 GM TUBE TOP SCH ×2 (08:04→21:00)
[2020-08-13 09:03] LABS: BASOPHILS % (AUTO) 0.5 % (0.0-2.0); EOSINOPHILS # (AUTO) 0.3 K/uL (0.0-0.7); EOSINOPHILS % (AUTO) 6.4 % (0.0-7.0); HEMATOCRIT 31.1 % (31.2-41.9); HEMOGLOBIN 10.8 g/dL (10.9-14.3); LYMPHOCYTES # (AUTO) 1.1 K/uL (20.0-40.0); LYMPHOCYTES % (AUTO) 27.7 % (20.5-51.5); MEAN CORPUSCULAR HEMOGLOBIN 32.8 uug (24.7-32.8); MEAN CORPUSCULAR HGB CONC 35 g/dL (32.3-35.6); MEAN CORPUSCULAR VOLUME 94.5 fL (75.5-95.3); MONOCYTES # (AUTO) 0.3 K/uL (2.0-10.0); MONOCYTES % (AUTO) 7.8 % (0.0-11.0); NEUTROPHILS # (AUTO) 2.3 K/uL (1.8-8.9); NEUTROPHILS % (AUTO) 57.6 % (38.5-71.5); PLATELET COUNT (AUTO) 184 K/uL (179-408); RED BLOOD CELL COUNT(AUTO) 3.29 MIL/uL (3.63-4.92); WHITE BLOOD COUNT (AUTO) 4.1 K/uL (3.8-11.8)
[2020-08-13] MEDS: HYDROGEN PEROXIDE 3% 118 ML BOTTLE TP SCH ×2 (09:27→21:36)
[2020-08-13] MEDS: JEVITY 1.2 1000 ML LIQUID GT PRN (13:55)
[2020-08-13 20:00] VITALS: BP 122/75
[2020-08-13] MEDS: ATORVASTATIN 10 MG TABLET GT SCH (21:00)
[2020-08-13] MEDS: MIRALAX 17 GM POWD.PACK GT SCH (21:00)
[2020-08-14] MEDS: IPRATROPIUM BROMIDE 0.5 MG/2.5 ML NEBU NEB SCH ×6 (02:55→23:02)
[2020-08-14] MEDS: ALBUTEROL SULFATE 2.5 MG/3 ML NEBU NEB SCH ×6 (02:55→23:02)
[2020-08-14] MEDS: CHOLECALCIFEROL 1,000 UNIT TABLET GT SCH (05:44)
[2020-08-14] MEDS: BUDESONIDE 0.5 MG/2 ML NEBU NEB SCH ×2 (07:09→19:13)
[2020-08-14 07:21] LABS: FOLLICLE STIMULATION HORMONE 52.4 mIU/mL (.)
[2020-08-14 07:45] VITALS: BP 96/58
[2020-08-14] MEDS: Z GUARD REMEDY PASTE 57 GM TUBE TOP SCH ×2 (08:20→21:17)
[2020-08-14] MEDS: COD LIVER OIL/ZINC OXIDE OINT 113 GM TUBE TP SCH ×2 (08:20→21:17)
[2020-08-14] MEDS: BACLOFEN 10 MG TABLET GT SCH ×2 (08:20→21:13)
[2020-08-14] MEDS: NUTRISOURCE FIBER 4 GM PACKET GT SCH ×2 (08:20→21:13)
[2020-08-14] MEDS: CALCIUM CARBONATE 500 MG TABLET GT SCH ×2 (08:20→21:17)
[2020-08-14] MEDS: DOCUSATE SODIUM 100 MG/10 ML LIQUID UDC GT SCH (08:20)
[2020-08-14] MEDS: HYDROGEN PEROXIDE 3% 118 ML BOTTLE TP SCH ×2 (08:40→21:53)
[2020-08-14] MEDS: JEVITY 1.2 1000 ML LIQUID GT PRN (14:15)
--- NOTE | 2020-08-14 17:09 | NUR ---
Stool for OB # 1 collected and sent to the lab.Continue with episodes of vaginal bleeding with small blood clots.
[2020-08-14 18:59] LABS: *OCCULT BLOOD STOOL NEGATIVE (NEGATIVE)
[2020-08-14 20:22] VITALS: BP 132/63
[2020-08-14] MEDS: ATORVASTATIN 10 MG TABLET GT SCH (21:13)
[2020-08-14] MEDS: MULTIVIT, IRON, MIN NO. 8, FA TABLET GT SCH (21:17)
[2020-08-15] MEDS: IPRATROPIUM BROMIDE 0.5 MG/2.5 ML NEBU NEB SCH ×6 (03:03→22:56)
[2020-08-15] MEDS: ALBUTEROL SULFATE 2.5 MG/3 ML NEBU NEB SCH ×6 (03:03→22:56)
[2020-08-15] MEDS: CHOLECALCIFEROL 1,000 UNIT TABLET GT SCH (05:50)
[2020-08-15] MEDS: BUDESONIDE 0.5 MG/2 ML NEBU NEB SCH ×2 (07:17→18:50)
[2020-08-15 07:29] VITALS: BP 124/73
[2020-08-15] MEDS: DOCUSATE SODIUM 100 MG/10 ML LIQUID UDC GT SCH (08:04)
[2020-08-15] MEDS: Z GUARD REMEDY PASTE 57 GM TUBE TOP SCH ×2 (08:05→20:21)
[2020-08-15] MEDS: NUTRISOURCE FIBER 4 GM PACKET GT SCH ×2 (08:05→20:21)
[2020-08-15] MEDS: COD LIVER OIL/ZINC OXIDE OINT 113 GM TUBE TP SCH ×2 (08:05→20:21)
[2020-08-15] MEDS: CALCIUM CARBONATE 500 MG TABLET GT SCH ×2 (08:05→20:21)
[2020-08-15] MEDS: BACLOFEN 10 MG TABLET GT SCH ×2 (08:05→20:21)
[2020-08-15] MEDS: HYDROGEN PEROXIDE 3% 118 ML BOTTLE TP SCH ×2 (09:00→21:01)
--- NOTE | 2020-08-15 18:21 | NUR ---
Stool for OB # 2 collected.
[2020-08-15 19:27] LABS: *OCCULT BLOOD STOOL NEGATIVE (NEGATIVE)
[2020-08-15 19:57] VITALS: BP 99/49
--- NOTE | 2020-08-15 20:12 | NUR ---
Covid results negative,Pt's sister Dione,wants to be notified only if the results are positive.
[2020-08-15] MEDS: ATORVASTATIN 10 MG TABLET GT SCH (20:21)
[2020-08-16] MEDS: IPRATROPIUM BROMIDE 0.5 MG/2.5 ML NEBU NEB SCH ×6 (02:48→23:02)
[2020-08-16] MEDS: ALBUTEROL SULFATE 2.5 MG/3 ML NEBU NEB SCH ×6 (02:49→23:02)
[2020-08-16] MEDS: CHOLECALCIFEROL 1,000 UNIT TABLET GT SCH (05:12)
[2020-08-16] MEDS: BUDESONIDE 0.5 MG/2 ML NEBU NEB SCH ×2 (06:55→19:05)
[2020-08-16 07:29] VITALS: BP 108/83
[2020-08-16] MEDS: DOCUSATE SODIUM 100 MG/10 ML LIQUID UDC GT SCH (08:06)
[2020-08-16] MEDS: NUTRISOURCE FIBER 4 GM PACKET GT SCH ×2 (08:06→20:25)
[2020-08-16] MEDS: BACLOFEN 10 MG TABLET GT SCH ×2 (08:06→20:25)
[2020-08-16] MEDS: CALCIUM CARBONATE 500 MG TABLET GT SCH ×2 (08:07→20:29)
[2020-08-16] MEDS: COD LIVER OIL/ZINC OXIDE OINT 113 GM TUBE TP SCH ×2 (08:07→20:31)
[2020-08-16] MEDS: Z GUARD REMEDY PASTE 57 GM TUBE TOP SCH ×2 (08:07→20:31)
[2020-08-16] MEDS: HYDROGEN PEROXIDE 3% 118 ML BOTTLE TP SCH ×2 (09:05→21:05)
[2020-08-16 20:18] VITALS: BP 109/79
[2020-08-16] MEDS: ATORVASTATIN 10 MG TABLET GT SCH (20:25)
[2020-08-16] MEDS: MIRALAX 17 GM POWD.PACK GT SCH (20:25)
[2020-08-16] MEDS: MULTIVIT, IRON, MIN NO. 8, FA TABLET GT SCH (20:29)
[2020-08-17] MEDS: ALBUTEROL SULFATE 2.5 MG/3 ML NEBU NEB SCH ×6 (03:07→22:48)
[2020-08-17] MEDS: IPRATROPIUM BROMIDE 0.5 MG/2.5 ML NEBU NEB SCH ×6 (03:07→22:48)
[2020-08-17] MEDS: CHOLECALCIFEROL 1,000 UNIT TABLET GT SCH (05:37)
[2020-08-17] MEDS: HYDROGEN PEROXIDE 3% 118 ML BOTTLE TP SCH ×2 (07:00→21:53)
[2020-08-17] MEDS: BUDESONIDE 0.5 MG/2 ML NEBU NEB SCH ×2 (07:00→18:51)
[2020-08-17 07:27] VITALS: BP 130/85
[2020-08-17] MEDS: DOCUSATE SODIUM 100 MG/10 ML LIQUID UDC GT SCH (08:16)
[2020-08-17] MEDS: BACLOFEN 10 MG TABLET GT SCH ×2 (08:17→21:17)
[2020-08-17] MEDS: NUTRISOURCE FIBER 4 GM PACKET GT SCH ×2 (08:17→21:17)
[2020-08-17] MEDS: CALCIUM CARBONATE 500 MG TABLET GT SCH ×2 (08:17→21:17)
[2020-08-17] MEDS: Z GUARD REMEDY PASTE 57 GM TUBE TOP SCH ×2 (08:18→21:17)
[2020-08-17] MEDS: COD LIVER OIL/ZINC OXIDE OINT 113 GM TUBE TP SCH ×2 (08:18→21:17)
[2020-08-17 20:00] VITALS: BP 114/52
[2020-08-17] MEDS: ATORVASTATIN 10 MG TABLET GT SCH (21:17)
[2020-08-18] MEDS: IPRATROPIUM BROMIDE 0.5 MG/2.5 ML NEBU NEB SCH ×6 (02:59→22:59)
[2020-08-18] MEDS: ALBUTEROL SULFATE 2.5 MG/3 ML NEBU NEB SCH ×6 (02:59→22:59)
[2020-08-18 04:14] LABS: *OCCULT BLOOD STOOL NEGATIVE (NEGATIVE)
[2020-08-18] MEDS: BUDESONIDE 0.5 MG/2 ML NEBU NEB SCH ×2 (07:00→19:00)
[2020-08-18 07:31] VITALS: BP 142/87
[2020-08-18] MEDS: HYDROGEN PEROXIDE 3% 118 ML BOTTLE TP SCH ×2 (09:31→21:12)
[2020-08-18] MEDS: BACLOFEN 10 MG TABLET GT SCH ×2 (09:35→21:36)
[2020-08-18] MEDS: DOCUSATE SODIUM 100 MG/10 ML LIQUID UDC GT SCH (09:35)
[2020-08-18] MEDS: NUTRISOURCE FIBER 4 GM PACKET GT SCH ×2 (09:36→21:41)
[2020-08-18] MEDS: CALCIUM CARBONATE 500 MG TABLET GT SCH ×2 (09:36→21:42)
[2020-08-18] MEDS: COD LIVER OIL/ZINC OXIDE OINT 113 GM TUBE TP SCH ×2 (09:36→21:43)
[2020-08-18] MEDS: Z GUARD REMEDY PASTE 57 GM TUBE TOP SCH ×2 (09:36→21:43)
--- NOTE | 2020-08-18 14:30 | NUR ---
PT. WAS SEEN AND EXAMINED BY DR. REAVES AND WITH NNO.
[2020-08-18 20:00] VITALS: BP 120/98
[2020-08-18] MEDS: MIRALAX 17 GM POWD.PACK GT SCH (21:37)
[2020-08-18] MEDS: ATORVASTATIN 10 MG TABLET GT SCH (21:37)
[2020-08-18] MEDS: MULTIVIT, IRON, MIN NO. 8, FA TABLET GT SCH (21:43)
[2020-08-19] MEDS: IPRATROPIUM BROMIDE 0.5 MG/2.5 ML NEBU NEB SCH ×6 (03:03→22:50)
[2020-08-19] MEDS: ALBUTEROL SULFATE 2.5 MG/3 ML NEBU NEB SCH ×6 (03:03→22:50)
[2020-08-19] MEDS: CHOLECALCIFEROL 1,000 UNIT TABLET GT SCH (05:46)
[2020-08-19] MEDS: BUDESONIDE 0.5 MG/2 ML NEBU NEB SCH ×2 (07:30→20:02)
[2020-08-19 07:47] VITALS: BP 118/75
[2020-08-19] MEDS: BACLOFEN 10 MG TABLET GT SCH ×2 (09:00→21:00)
[2020-08-19] MEDS: HYDROGEN PEROXIDE 3% 118 ML BOTTLE TP SCH ×2 (09:00→20:02)
[2020-08-19] MEDS: NUTRISOURCE FIBER 4 GM PACKET GT SCH ×2 (09:00→21:00)
[2020-08-19] MEDS: CALCIUM CARBONATE 500 MG TABLET GT SCH ×2 (09:00→21:00)
[2020-08-19] MEDS: COD LIVER OIL/ZINC OXIDE OINT 113 GM TUBE TP SCH ×2 (09:00→21:00)
[2020-08-19] MEDS: DOCUSATE SODIUM 100 MG/10 ML LIQUID UDC GT SCH (09:00)
[2020-08-19] MEDS: Z GUARD REMEDY PASTE 57 GM TUBE TOP SCH ×2 (09:00→21:00)
--- NOTE | 2020-08-19 11:58 | NUR ---
Spoke with Pt's sister Dione Radha. Verbal consent given by Dione Garcia for patient to receive COVID 19 Vaccine.
--- NOTE | 2020-08-19 14:30 | NUR ---
PT. WAS SEEN AND EXAMINED BY DR. REAVES AND WITH NNO.
[2020-08-19] MEDS: JEVITY 1.2 1000 ML LIQUID GT PRN (17:28)
[2020-08-19 20:00] VITALS: BP 110/82
[2020-08-19] MEDS: ATORVASTATIN 10 MG TABLET GT SCH (21:00)
[2020-08-20] MEDS: ALBUTEROL SULFATE 2.5 MG/3 ML NEBU NEB SCH ×6 (02:50→22:50)
[2020-08-20] MEDS: IPRATROPIUM BROMIDE 0.5 MG/2.5 ML NEBU NEB SCH ×6 (02:50→22:50)
[2020-08-20] MEDS: CHOLECALCIFEROL 1,000 UNIT TABLET GT SCH (05:33)
[2020-08-20] MEDS: BUDESONIDE 0.5 MG/2 ML NEBU NEB SCH ×2 (07:04→20:01)
[2020-08-20 08:04] VITALS: BP 120/74
[2020-08-20] MEDS: HYDROGEN PEROXIDE 3% 118 ML BOTTLE TP SCH ×2 (09:00→21:32)
[2020-08-20] MEDS: CALCIUM CARBONATE 500 MG TABLET GT SCH ×2 (09:51→20:51)
[2020-08-20] MEDS: BACLOFEN 10 MG TABLET GT SCH ×2 (09:51→20:51)
[2020-08-20] MEDS: DOCUSATE SODIUM 100 MG/10 ML LIQUID UDC GT SCH (09:51)
[2020-08-20] MEDS: NUTRISOURCE FIBER 4 GM PACKET GT SCH ×2 (09:51→20:51)
[2020-08-20] MEDS: COD LIVER OIL/ZINC OXIDE OINT 113 GM TUBE TP SCH ×2 (09:51→20:54)
[2020-08-20] MEDS: Z GUARD REMEDY PASTE 57 GM TUBE TOP SCH ×2 (09:51→20:54)
--- NOTE | 2020-08-20 11:30 | NUR ---
SEEN AND EXAMINED BY DR. REAVES AND WITH NNO.
[2020-08-20] MEDS: ACETAMINOPHEN 650 MG/20 ML UDC- SA PATIENTS-PAIN ONLY GT PRN (13:30)
[2020-08-20 20:00] VITALS: BP 128/77
[2020-08-20] MEDS: ATORVASTATIN 10 MG TABLET GT SCH (20:51)
[2020-08-20] MEDS: MIRALAX 17 GM POWD.PACK GT SCH (20:51)
[2020-08-20] MEDS: MULTIVIT, IRON, MIN NO. 8, FA TABLET GT SCH (20:51)
[2020-08-21] MEDS: IPRATROPIUM BROMIDE 0.5 MG/2.5 ML NEBU NEB SCH ×6 (02:50→22:40)
[2020-08-21] MEDS: ALBUTEROL SULFATE 2.5 MG/3 ML NEBU NEB SCH ×6 (02:50→22:40)
[2020-08-21] MEDS: CHOLECALCIFEROL 1,000 UNIT TABLET GT SCH (05:59)
[2020-08-21] MEDS: HYDROGEN PEROXIDE 3% 118 ML BOTTLE TP SCH ×2 (07:05→21:05)
[2020-08-21] MEDS: BUDESONIDE 0.5 MG/2 ML NEBU NEB SCH ×2 (07:05→18:02)
[2020-08-21 08:00] VITALS: BP 124/86
[2020-08-21] MEDS: BACLOFEN 10 MG TABLET GT SCH ×2 (08:23→21:57)
[2020-08-21] MEDS: DOCUSATE SODIUM 100 MG/10 ML LIQUID UDC GT SCH (08:23)
[2020-08-21] MEDS: CALCIUM CARBONATE 500 MG TABLET GT SCH ×2 (08:24→21:58)
[2020-08-21] MEDS: NUTRISOURCE FIBER 4 GM PACKET GT SCH ×2 (08:24→21:58)
[2020-08-21] MEDS: Z GUARD REMEDY PASTE 57 GM TUBE TOP SCH ×2 (08:25→21:59)
[2020-08-21] MEDS: COD LIVER OIL/ZINC OXIDE OINT 113 GM TUBE TP SCH ×2 (08:25→21:59)
[2020-08-21 21:46] VITALS: BP 123/74
[2020-08-21] MEDS: JEVITY 1.2 1000 ML LIQUID GT PRN (21:50)
[2020-08-21] MEDS: ATORVASTATIN 10 MG TABLET GT SCH (21:57)
[2020-08-22] MEDS: ALBUTEROL SULFATE 2.5 MG/3 ML NEBU NEB SCH ×6 (02:35→22:40)
[2020-08-22] MEDS: IPRATROPIUM BROMIDE 0.5 MG/2.5 ML NEBU NEB SCH ×6 (02:35→22:40)
[2020-08-22] MEDS: CHOLECALCIFEROL 1,000 UNIT TABLET GT SCH (05:19)
[2020-08-22] MEDS: BUDESONIDE 0.5 MG/2 ML NEBU NEB SCH ×2 (07:36→19:28)
[2020-08-22] MEDS: HYDROGEN PEROXIDE 3% 118 ML BOTTLE TP SCH ×2 (07:36→21:33)
[2020-08-22 07:42] VITALS: BP 122/80
[2020-08-22] MEDS: DOCUSATE SODIUM 100 MG/10 ML LIQUID UDC GT SCH (09:00)
[2020-08-22] MEDS: CALCIUM CARBONATE 500 MG TABLET GT SCH ×2 (09:00→20:19)
[2020-08-22] MEDS: NUTRISOURCE FIBER 4 GM PACKET GT SCH ×2 (09:00→20:19)
[2020-08-22] MEDS: BACLOFEN 10 MG TABLET GT SCH ×2 (09:00→20:19)
[2020-08-22] MEDS: Z GUARD REMEDY PASTE 57 GM TUBE TOP SCH ×2 (09:00→20:19)
[2020-08-22] MEDS: COD LIVER OIL/ZINC OXIDE OINT 113 GM TUBE TP SCH ×2 (09:00→20:19)
--- NOTE | 2020-08-22 12:37 | NUR ---
PT'S RESP. ALLIANCE PARTY ALEXA STOVER WAS NOTIFIED RE: NEGATIVE COVID 19 TEST.
[2020-08-22] MEDS: ATORVASTATIN 10 MG TABLET GT SCH (20:19)
[2020-08-22] MEDS: MULTIVIT, IRON, MIN NO. 8, FA TABLET GT SCH (20:19)
[2020-08-22 22:21] VITALS: BP 105/84
[2020-08-23] MEDS: IPRATROPIUM BROMIDE 0.5 MG/2.5 ML NEBU NEB SCH ×6 (02:37→23:02)
[2020-08-23] MEDS: ALBUTEROL SULFATE 2.5 MG/3 ML NEBU NEB SCH ×6 (02:37→23:02)
[2020-08-23] MEDS: JEVITY 1.2 1000 ML LIQUID GT PRN (05:48)
[2020-08-23] MEDS: CHOLECALCIFEROL 1,000 UNIT TABLET GT SCH (05:48)
[2020-08-23] MEDS: BUDESONIDE 0.5 MG/2 ML NEBU NEB SCH ×2 (07:17→19:11)
[2020-08-23 07:29] VITALS: BP 141/88
[2020-08-23] MEDS: BACLOFEN 10 MG TABLET GT SCH ×2 (08:38→21:47)
[2020-08-23] MEDS: DOCUSATE SODIUM 100 MG/10 ML LIQUID UDC GT SCH (08:38)
[2020-08-23] MEDS: CALCIUM CARBONATE 500 MG TABLET GT SCH ×2 (08:39→21:49)
[2020-08-23] MEDS: NUTRISOURCE FIBER 4 GM PACKET GT SCH ×2 (08:39→21:48)
[2020-08-23] MEDS: Z GUARD REMEDY PASTE 57 GM TUBE TOP SCH ×2 (08:39→21:52)
[2020-08-23] MEDS: COD LIVER OIL/ZINC OXIDE OINT 113 GM TUBE TP SCH ×2 (08:39→21:52)
[2020-08-23] MEDS: HYDROGEN PEROXIDE 3% 118 ML BOTTLE TP SCH ×2 (09:55→20:55)
[2020-08-23 20:41] VITALS: BP 159/83
[2020-08-23] MEDS: ATORVASTATIN 10 MG TABLET GT SCH (21:47)
[2020-08-23] MEDS: MIRALAX 17 GM POWD.PACK GT SCH (21:47)
[2020-08-24] MEDS: ALBUTEROL SULFATE 2.5 MG/3 ML NEBU NEB SCH ×6 (03:02→22:37)
[2020-08-24] MEDS: IPRATROPIUM BROMIDE 0.5 MG/2.5 ML NEBU NEB SCH ×6 (03:02→22:37)
[2020-08-24] MEDS: CHOLECALCIFEROL 1,000 UNIT TABLET GT SCH (06:03)
[2020-08-24] MEDS: BUDESONIDE 0.5 MG/2 ML NEBU NEB SCH ×2 (07:15→19:20)
[2020-08-24] MEDS: HYDROGEN PEROXIDE 3% 118 ML BOTTLE TP SCH ×2 (07:20→21:45)
[2020-08-24 07:30] VITALS: BP 118/88
[2020-08-24] MEDS: DOCUSATE SODIUM 100 MG/10 ML LIQUID UDC GT SCH (09:14)
[2020-08-24] MEDS: NUTRISOURCE FIBER 4 GM PACKET GT SCH ×2 (09:15→21:38)
[2020-08-24] MEDS: CALCIUM CARBONATE 500 MG TABLET GT SCH ×2 (09:15→21:39)
[2020-08-24] MEDS: Z GUARD REMEDY PASTE 57 GM TUBE TOP SCH ×2 (09:15→21:39)
[2020-08-24] MEDS: BACLOFEN 10 MG TABLET GT SCH ×2 (09:15→21:38)
--- NOTE | 2020-08-24 19:42 | NUR ---
New orders to Give COVID vaccine x 1 carried out.
[2020-08-24 19:59] VITALS: BP 88/50
[2020-08-24] MEDS: ATORVASTATIN 10 MG TABLET GT SCH (21:38)
[2020-08-24] MEDS: MULTIVIT, IRON, MIN NO. 8, FA TABLET GT SCH (21:39)
[2020-08-25] MEDS: IPRATROPIUM BROMIDE 0.5 MG/2.5 ML NEBU NEB SCH ×6 (02:37→22:44)
[2020-08-25] MEDS: ALBUTEROL SULFATE 2.5 MG/3 ML NEBU NEB SCH ×6 (02:37→22:44)
[2020-08-25] MEDS: JEVITY 1.2 1000 ML LIQUID GT PRN (05:00)
[2020-08-25] MEDS: CHOLECALCIFEROL 1,000 UNIT TABLET GT SCH (05:29)
[2020-08-25] MEDS: HYDROGEN PEROXIDE 3% 118 ML BOTTLE TP SCH ×2 (07:05→21:24)
[2020-08-25] MEDS: BUDESONIDE 0.5 MG/2 ML NEBU NEB SCH ×2 (07:05→19:27)
[2020-08-25 07:28] VITALS: BP 100/65
[2020-08-25] MEDS: DOCUSATE SODIUM 100 MG/10 ML LIQUID UDC GT SCH (08:24)
[2020-08-25] MEDS: NUTRISOURCE FIBER 4 GM PACKET GT SCH ×2 (08:24→21:00)
[2020-08-25] MEDS: BACLOFEN 10 MG TABLET GT SCH ×2 (08:24→21:00)
[2020-08-25] MEDS: CALCIUM CARBONATE 500 MG TABLET GT SCH ×2 (08:24→21:00)
[2020-08-25] MEDS: Z GUARD REMEDY PASTE 57 GM TUBE TOP SCH ×2 (08:26→21:00)
[2020-08-25 20:31] VITALS: BP 119/78
[2020-08-25] MEDS: MIRALAX 17 GM POWD.PACK GT SCH (21:00)
[2020-08-25] MEDS: ATORVASTATIN 10 MG TABLET GT SCH (21:00)
[~2020-08-26] VITALS: Ht 160 cm; Wt 63.5 kg
[2020-08-26] MEDS: IPRATROPIUM BROMIDE 0.5 MG/2.5 ML NEBU NEB SCH ×6 (02:39→23:21)
[2020-08-26] MEDS: ALBUTEROL SULFATE 2.5 MG/3 ML NEBU NEB SCH ×6 (02:39→23:21)
[2020-08-26] MEDS: CHOLECALCIFEROL 1,000 UNIT TABLET GT SCH (05:30)
--- NOTE | 2020-08-26 05:38 | NUR ---
no rashes or adverse reaction from moderna covid vaccine observed.
[2020-08-26] MEDS: BUDESONIDE 0.5 MG/2 ML NEBU NEB SCH ×2 (07:00→18:03)
[2020-08-26 08:22] VITALS: BP 102/52
[2020-08-26] MEDS: CALCIUM CARBONATE 500 MG TABLET GT SCH ×2 (09:00→21:28)
[2020-08-26] MEDS: DOCUSATE SODIUM 100 MG/10 ML LIQUID UDC GT SCH (09:00)
[2020-08-26] MEDS: Z GUARD REMEDY PASTE 57 GM TUBE TOP SCH ×2 (09:00→21:28)
[2020-08-26] MEDS: NUTRISOURCE FIBER 4 GM PACKET GT SCH ×2 (09:00→21:27)
[2020-08-26] MEDS: BACLOFEN 10 MG TABLET GT SCH ×2 (09:00→21:26)
[2020-08-26] MEDS: HYDROGEN PEROXIDE 3% 118 ML BOTTLE TP SCH ×2 (09:18→20:32)
--- NOTE | 2020-08-26 19:07 | NUR ---
CONTINUE TO MONITOR PATIENT S/P COVID-19 VACCINATION. NOTE S/S OF VACCINE REACTION NOTED. WILL CONTINUE TO MONITOR.
[2020-08-26] MEDS: ATORVASTATIN 10 MG TABLET GT SCH (21:26)
[2020-08-26] MEDS: MULTIVIT, IRON, MIN NO. 8, FA TABLET GT SCH (21:28)
[2020-08-26 22:48] VITALS: BP 117/74
--- NOTE | 2020-08-26 23:27 | NUR ---
Patient is afebrile, no signs of any adverse reactions noted from the COVID-19 vaccine.
[~2020-08-26 23:59] MED LIST: ACETAMINOPHEN 650 MG/20 ML UDC- SA PATIENTS-FEVER ONLY GT PRN; CLOTRIMAZOLE 1% CREAM 30 GM TUBE TP PRN; COVID-19 VACC,MRNA(MODERNA)/PF 100 MCG/0.5 ML VIAL IM ONE; DIATR MEGLU/DIATRIZOATE SODIUM 30 ML BOTTLE ONE; DIATR MEGLU/DIATRIZOATE SODIUM 30 ML BOTTLE PO ONE; HYDROGEN PEROXIDE 3% TP PRN; INFLUENZA VACCINE 2020-2021 0.5 ML DISP.SYRIN IM ONE; NEOMY/BACITRAC/POLYMI OINT 28.35 GM TUBE TOP SCH; NEOMY/BACITRAC/POLYMI OINT 28.35 GM TUBE TP SCH; POLYETHYLENE GLYCOL 3350 238 GM POWDER GT SCH; POLYETHYLENE GLYCOL 3350 238 GM POWDER PO ONE; TUBERCULIN,PURIF.PROT.DERIV. 5 TU/0.1 ML TEST ID ONE; Z GUARD REMEDY PASTE 57 GM TUBE TOP PRN
[2020-08-27] MEDS: IPRATROPIUM BROMIDE 0.5 MG/2.5 ML NEBU NEB SCH ×6 (03:42→23:23)
[2020-08-27] MEDS: ALBUTEROL SULFATE 2.5 MG/3 ML NEBU NEB SCH ×6 (03:42→23:23)
[2020-08-27] MEDS: CHOLECALCIFEROL 1,000 UNIT TABLET GT SCH (05:55)
[2020-08-27] MEDS: BUDESONIDE 0.5 MG/2 ML NEBU NEB SCH ×2 (07:22→19:00)
[2020-08-27] MEDS: HYDROGEN PEROXIDE 3% 118 ML BOTTLE TP SCH ×2 (07:22→21:05)
[2020-08-27 07:44] VITALS: BP 101/64
[2020-08-27] MEDS: BACLOFEN 10 MG TABLET GT SCH ×2 (08:32→21:00)
[2020-08-27] MEDS: CALCIUM CARBONATE 500 MG TABLET GT SCH ×2 (08:32→21:09)
[2020-08-27] MEDS: Z GUARD REMEDY PASTE 57 GM TUBE TOP SCH ×2 (08:32→21:09)
[2020-08-27] MEDS: NUTRISOURCE FIBER 4 GM PACKET GT SCH ×2 (08:32→21:08)
[2020-08-27] MEDS: DOCUSATE SODIUM 100 MG/10 ML LIQUID UDC GT SCH (08:32)
[2020-08-27] MEDS: JEVITY 1.2 1000 ML LIQUID GT PRN (11:40)
--- NOTE | 2020-08-27 17:49 | NUR ---
No a/r noted from covid19 vaccine.
--- NOTE | 2020-08-27 19:45 | NUR ---
Per Nurse, routine tracheostomy replacement was done on the patient today, no active bleeding from tracheostomy site or no bleeding noted when suctioning patient, no signs of any respiratory distress noted, kept clean and comfortable, need attended, will continue monitor.
[2020-08-27 20:30] VITALS: BP 127/77
[2020-08-27] MEDS: ATORVASTATIN 10 MG TABLET GT SCH (21:07)
[2020-08-27] MEDS: MIRALAX 17 GM POWD.PACK GT SCH (21:07)
--- NOTE | 2020-08-27 22:12 | NUR ---
Patient is afebrile, no signs of adverse effects from Covid-19 vaccine.
[2020-08-28] MEDS: IPRATROPIUM BROMIDE 0.5 MG/2.5 ML NEBU NEB SCH ×6 (03:47→23:02)
[2020-08-28] MEDS: ALBUTEROL SULFATE 2.5 MG/3 ML NEBU NEB SCH ×6 (03:47→23:02)
[2020-08-28] MEDS: CHOLECALCIFEROL 1,000 UNIT TABLET GT SCH (06:50)
[2020-08-28] MEDS: BUDESONIDE 0.5 MG/2 ML NEBU NEB SCH ×2 (07:00→19:00)
[2020-08-28 07:38] VITALS: BP 105/64
[2020-08-28] MEDS: BACLOFEN 10 MG TABLET GT SCH ×2 (08:38→20:54)
[2020-08-28] MEDS: NUTRISOURCE FIBER 4 GM PACKET GT SCH ×2 (08:38→20:54)
[2020-08-28] MEDS: DOCUSATE SODIUM 100 MG/10 ML LIQUID UDC GT SCH (08:38)
[2020-08-28] MEDS: CALCIUM CARBONATE 500 MG TABLET GT SCH ×2 (08:38→20:54)
[2020-08-28] MEDS: Z GUARD REMEDY PASTE 57 GM TUBE TOP SCH ×2 (08:39→20:55)
[2020-08-28] MEDS: HYDROGEN PEROXIDE 3% 118 ML BOTTLE TP SCH ×2 (08:40→20:34)
[2020-08-28] MEDS: JEVITY 1.2 1000 ML LIQUID GT PRN (14:45)
--- NOTE | 2020-08-28 18:12 | NUR ---
V/S STABLE, NO A/R TO COVID19 VACCINE NOTED. WILL CONTINUE MONITORING.
[2020-08-28 20:30] VITALS: BP 130/83
[2020-08-28] MEDS: ATORVASTATIN 10 MG TABLET GT SCH (20:54)
[2020-08-28] MEDS: MULTIVIT, IRON, MIN NO. 8, FA TABLET GT SCH (20:55)
[2020-08-29] MEDS: IPRATROPIUM BROMIDE 0.5 MG/2.5 ML NEBU NEB SCH ×6 (03:00→23:00)
[2020-08-29] MEDS: ALBUTEROL SULFATE 2.5 MG/3 ML NEBU NEB SCH ×6 (03:00→23:00)
[2020-08-29] MEDS: CHOLECALCIFEROL 1,000 UNIT TABLET GT SCH (05:44)
[2020-08-29] MEDS: BUDESONIDE 0.5 MG/2 ML NEBU NEB SCH ×2 (07:04→19:11)
[2020-08-29 07:38] VITALS: BP 109/65
[2020-08-29] MEDS: NUTRISOURCE FIBER 4 GM PACKET GT SCH ×2 (08:52→20:33)
[2020-08-29] MEDS: Z GUARD REMEDY PASTE 57 GM TUBE TOP SCH ×2 (08:52→20:34)
[2020-08-29] MEDS: CALCIUM CARBONATE 500 MG TABLET GT SCH ×2 (08:52→20:33)
[2020-08-29] MEDS: DOCUSATE SODIUM 100 MG/10 ML LIQUID UDC GT SCH (08:52)
[2020-08-29] MEDS: BACLOFEN 10 MG TABLET GT SCH ×2 (08:52→20:33)
[2020-08-29] MEDS: HYDROGEN PEROXIDE 3% 118 ML BOTTLE TP SCH ×2 (09:00→20:37)
--- NOTE | 2020-08-29 13:00 | NUR ---
Seen and examined by Dr Palomino,no new orders noted.
[2020-08-29 19:59] VITALS: BP 96/60
[2020-08-29] MEDS: ATORVASTATIN 10 MG TABLET GT SCH (20:33)
[2020-08-30] MEDS: ALBUTEROL SULFATE 2.5 MG/3 ML NEBU NEB SCH (03:01)
[2020-08-30] MEDS: IPRATROPIUM BROMIDE 0.5 MG/2.5 ML NEBU NEB SCH (03:01)
[2020-08-30] MEDS: CHOLECALCIFEROL 1,000 UNIT TABLET GT SCH (06:09)
== END | disposition still patient (30) | DRG 133 ==
LOC: SA 08-27
PROVIDERS: ADMIT Specialist; ATTEND Specialist
DX: J96.10 Chronic respiratory failure, unspecified whether with hypoxia or hypercapnia (principal); G93.1 Anoxic brain damage, not elsewhere classified; R40.3 Persistent vegetative state; Z93.0 Tracheostomy status; E46 Unspecified protein-calorie malnutrition; R13.10 Dysphagia, unspecified; Z93.1 Gastrostomy status; I25.10 Atherosclerotic heart disease of native coronary artery without angina pectoris; Z86.74 Personal history of sudden cardiac arrest; F19.21 Other psychoactive substance dependence, in remission; G40.909 Epilepsy, unspecified, not intractable, without status epilepticus; M24.50 Contracture, unspecified joint; E66.3 Overweight; Z68.27 Body mass index [BMI] 27.0-27.9, adult; E78.5 Hyperlipidemia, unspecified; K08.109 Complete loss of teeth, unspecified cause, unspecified class; K59.00 Constipation, unspecified; Z66 Do not resuscitate; Z87.11 Personal history of peptic ulcer disease; D62 Acute posthemorrhagic anemia
CPT/HCPCS: 36415; 71045; 74018; 76856; 82652; 83001; 83550; 84443; 85025; 85730; 86580; 87040; 87070; 87077; 87086; 90686; 94003; 94640; 94664; A4663; C1758; J3590; Q9963; U0003

== ENCOUNTER 2021-11-29 10:39 | Outpatient (CLI) | payer MEDICAID ==
[2021-11-29] MEDS ORDERED: SWABABLE VALVE TRANSFER SET EA MC ONE (13:18)
[2021-11-29] MEDS ORDERED: IOHEXOL 300MG/ML 100 ML INFUS..BTL ONE (13:18)
== END 2021-11-29 23:59 | disposition home or self-care (01) ==
LOC: CT 10:39
PROVIDERS: ATTEND Internal Medicine Pulmonary Disease
DX: R59.0 Localized enlarged lymph nodes (principal)
CPT/HCPCS: 72194; Q9967; 70030-TC

== ENCOUNTER 2022-02-12 21:25 | Inpatient (IN) | payer MEDICAID ==
[~2022-02-12] VITALS: Ht 160 cm; Wt 74.4 kg
--- NOTE | 2022-02-12 21:35 | NUR ---
Dr. Keith at bedside for MSE.
[2022-02-12 22:01] LABS: HEMATOCRIT 22.4 % (31.2-41.9); MEAN CORPUSCULAR HEMOGLOBIN 23.6 uug (24.7-32.8); MEAN CORPUSCULAR VOLUME 71.5 fL (75.5-95.3); PLATELET COUNT (AUTO) 217 K/uL (179-408)
[2022-02-12 22:23] LABS: BILIRUBIN,DIRECT 0.1 mg/dL (0.0-0.2); BILIRUBIN,TOTAL 0.3 mg/dL (0.2-1.0); CREATININE 4.6 mg/dL (0.6-1.3); TOTAL PROTEIN, SERUM 6.7 g/dL (6.4-8.2)
[2022-02-12 22:28] LABS: POTASSIUM 7.9 mmol/L (3.5-5.1)
[2022-02-12] MEDS ORDERED: DEXTROSE 50% 50 ML DISP.SYRIN IV ONE (23:15)
[2022-02-12] MEDS ORDERED: INSULIN REGULAR, HUMAN 300 UNIT/3 ML VIAL IV ONE (23:15)
[2022-02-12] MEDS ORDERED: CALCIUM GLUCONATE IV 1 GM in IV DEXTROSE 5% 50 ML IV ONE (23:15)
[2022-02-12] MEDS ORDERED: SODIUM POLYSTYRENE SULFONATE 15 G/60 ML LIQUID UDC GT ONE (23:15)
[2022-02-12] MEDS ORDERED: IV NS 1000 ML 1,000 ML IV ONE (23:15)
[2022-02-12] MEDS ORDERED: CALCIUM GLUCONATE 1 GM/10 ML VIAL IV ONE (23:19)
[2022-02-12] MEDS ORDERED: DEXTROSE 50% 50 ML DISP.SYRIN ONE (23:20)
[2022-02-12] MEDS ORDERED: SODIUM POLYSTYRENE SULFONATE 15 G/60 ML LIQUID UDC ONE (23:20)
[2022-02-12] MEDS ORDERED: INSULIN REGULAR, HUMAN 300 UNIT/3 ML VIAL ONE (23:21)
[2022-02-13 01:45] LABS: CREATININE 4.4 mg/dL (0.6-1.3)
[2022-02-13] MEDS ORDERED: INSULIN REGULAR, HUMAN 300 UNIT/3 ML VIAL IV ONE (02:15)
[2022-02-13] MEDS ORDERED: IV NS 1000 ML 1,000 ML IV ONE (02:15)
[2022-02-13] MEDS ORDERED: DEXTROSE 50% 50 ML DISP.SYRIN IV ONE (02:15)
[2022-02-13] MEDS ORDERED: CALCIUM CHLORIDE 1 GM/10 ML DISP.SYRIN IVP ONE ×2 (02:15→02:49)
[2022-02-13] MEDS ORDERED: DEXTROSE 50% 50 ML DISP.SYRIN ONE (02:51)
[2022-02-13] MEDS ORDERED: SODIUM POLYSTYRENE SULFONATE 15 G/60 ML LIQUID UDC GT ONE (03:15)
[2022-02-13] MEDS ORDERED: SODIUM POLYSTYRENE SULFONATE 15 G/60 ML LIQUID UDC ONE (04:30)
[2022-02-13 06:25] LABS: CREATININE 4.4 mg/dL (0.6-1.3)
[2022-02-13 06:30] LABS: POTASSIUM 6.2 mmol/L (3.5-5.1)
--- NOTE | 2022-02-13 06:30 | NUR ---
call to [facility] for admission.
--- NOTE | 2022-02-13 07:42 | NUR ---
PLACED A CALL TO dR MUSA, AWAITING CALL BACK.
--- NOTE | 2022-02-13 08:30 | NUR ---
Dr Mota spoke to dr Meyers for tele admit.
--- NOTE | 2022-02-13 08:32 | NUR ---
Placed a call to tele floor, no beds available at this time.
--- NOTE | 2022-02-13 11:00 | NUR ---
Pt will be admitted to CCU for tele overflow per nursing metal fabricating supervisor.
--- NOTE | 2022-02-13 11:13 | NUR ---
Pt left Er via bed to CCU 4 accompained by nursing super.
[2022-02-13 12:14] VITALS: BP 94/54
--- NOTE | 2022-02-13 13:40 | NUR ---
Doctor Luigi aware patient is admitted in ICU as Tele overflow. he will be talking to family first regarding plan of care vs. comfort care. family to come see patient first and will follow up with Dr. eric with new admitting orders.
[2022-02-13] MEDS ORDERED: BUDE0.5A NEB (15:11)
[2022-02-13] MEDS ORDERED: BISA10SU61 RC (15:11)
[2022-02-13] MEDS ORDERED: POLY17PO4 GT (15:11)
[2022-02-13] MEDS ORDERED: [UNRECOGNIZED DRUG - CODE] IV (15:11)
[2022-02-13] MEDS ORDERED: BACL10TA GT (15:11)
[2022-02-13] MEDS ORDERED: ACET-2154 GT (15:11)
[2022-02-13] MEDS ORDERED: IPRA0.2S6 NEB (15:11)
[2022-02-13] MEDS ORDERED: DOCU100C36 GT (15:11)
[2022-02-13] MEDS ORDERED: GUAR1PAC4 GT (15:11)
[2022-02-13] MEDS ORDERED: ATOR10TA GT (15:11)
[2022-02-13] MEDS ORDERED: ALBU2.5V38 NEB (15:11)
[2022-02-13] MEDS ORDERED: CHOL200059 GT (15:11)
[2022-02-13] MEDS ORDERED: NUTR1PAC14 GT (15:11)
[2022-02-13] MEDS ORDERED: ZINC113P3 TP ×2 (15:11)
[2022-02-13] MEDS ORDERED: MV-M1TAB2 GT (15:11)
[2022-02-13] MEDS ORDERED: HYDR1SOL TP ×2 (15:11)
[2022-02-13] MEDS ORDERED: PETR113O TP (15:11)
[2022-02-13] MEDS ORDERED: MULT-213 GT (15:15)
[2022-02-13] MEDS ORDERED: LACT-209 GT (15:18)
[2022-02-13 16:00] VITALS: BP 94/56
--- NOTE | 2022-02-13 17:46 | NUR ---
Doctor Meyers will place orders for treatment. awaiting orders.
[2022-02-13] MEDS ORDERED: ACETAMINOPHEN 650 MG/20.3 ML LIQUID UDC GT PRN (18:30)
[2022-02-13] MEDS ORDERED: JEVITY 1.2 1000 ML LIQUID GT PRN (18:30)
[2022-02-13] MEDS ORDERED: BISACODYL 10 MG SUPP.RECT RC PRN (18:30)
[2022-02-13] MEDS: BUDESONIDE 0.5 MG/2 ML NEBU NEB SCH (19:30)
[2022-02-13 20:00] VITALS: BP 94/66
[2022-02-13] MEDS: IPRATROPIUM BROMIDE 0.5 MG/2.5 ML NEBU NEB SCH ×2 (20:00→23:47)
[2022-02-13] MEDS: ALBUTEROL SULFATE 2.5 MG/3 ML NEBU NEB SCH ×2 (20:00→23:47)
[2022-02-13 20:17] LABS: HEMATOCRIT 21.1 % (31.2-41.9); MEAN CORPUSCULAR HEMOGLOBIN 23.5 uug (24.7-32.8); MEAN CORPUSCULAR VOLUME 72.9 fL (75.5-95.3); PLATELET COUNT (AUTO) 151 K/uL (179-408)
--- NOTE | 2022-02-13 20:20 | NUR ---
TRANSPORTED PATIENT VIA BED WITH RESPIRATORY THERAPIST WITH OXYGEN ,HEART MONITOR AND PATIENT CHART RECEIVED BY JESSICA GUERRA AT B/S , REPORT GIVEN AT B/S.
--- NOTE | 2022-02-13 20:20 | NUR ---
Pt received from icu awake and in no aparent distress. Pt is unresposive to command.tracheostomy noted. resp ulabored. pt accompanied by RN and RT ON ACL protocol. Tele boc # 317 applied. Cardiac rhythm sinus HR 67, RR 20. peg tube clamped. Steel cath intact and patent. Rince cloudy yellow. Steel below the bladdwe. 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 pt is unresponsive to coxios stimuli. Dr Canseco notified of transfer.
[2022-02-13 20:21] VITALS: BP 97/61
[2022-02-13 20:25] LABS: CREATININE 4.6 mg/dL (0.6-1.3)
[2022-02-13 20:39] LABS: IRON, SERUM 44 ug/dL (50-175)
[2022-02-13 20:41] LABS: NEUTROPHILS % (MANUAL) 0 % (42-75)
[2022-02-13] MEDS: NUTRISOURCE FIBER 4 GM PACKET GT SCH (21:00)
[2022-02-13 21:03] LABS: PHOSPHOROUS 9.5 mg/dL (2.5-4.9)
[2022-02-13] MEDS ORDERED: SODIUM POLYSTYRENE SULFONATE 15 G/60 ML LIQUID UDC GT STA (21:10)
[2022-02-13] MEDS ORDERED: MEROPENEM 500 MG in IV NORMAL SALINE 50 ML IV SCH (21:30)
[2022-02-13] MEDS: MULTIVIT, IRON, MIN NO. 8, FA TABLET GT SCH (21:51)
[2022-02-13] MEDS: BACLOFEN 10 MG TABLET GT SCH (21:51)
[2022-02-13] MEDS: MIRALAX 17 GM POWD.PACK GT SCH (21:51)
--- NOTE | 2022-02-13 22:30 | NUR ---
Blood repeated for type nd cross at this time. Mid line 18G placed by picc nurse.Pt tolerated procedure No distress noted.
--- NOTE | 2022-02-13 23:00 | NUR ---
bLOOD CONSENT ON CHART. Lab to type and cross for blood transfusion, as orfdered. Pt is afebrile. No adverse reaction from first dose Meropenem.
[2022-02-13] MEDS ORDERED: MEROPENEM 500MG/NS 50ML PB ***ER PYXIS ONLY IV ONE (23:25)
[2022-02-13] MEDS: IV D5/ 0.9% NACL 1,000 ML IV PRN (23:53)
[2022-02-14] VITALS (10 sets, daily range): BP systolic 82–137; BP diastolic 53–72
--- NOTE | 2022-02-14 01:13 | NUR ---
nURSING TANKMAN INDORMRED OF TEMP 93, lACTIC ACID 7 AND H/H 6.8 AMD 21.1. Charge aware. Blood is not ready.D5NS Iinfusing as ordered. Meropenem completed.
--- NOTE | 2022-02-14 01:30 | NUR ---
pT HAD LARGE LOOSE BOWEL MOVEMENT, COLOR YELLOW. SKIN CARE RENDERED. DRESSING TO SACRUM INTACT. SKIN CARE RENDEREDE AND COMPLETE BED CHANGED. CARE DONE BY NURSES ASSISTED.
--- NOTE | 2022-02-14 02:44 | NUR ---
No s/s of blood transfusion reaction noted. Temp 93.o bp 107/60 hr 81 Sinus rhythm. Bear hugger in place, Extra blanket added to provide warmth. Pt suctioned and repositioned with HOB 30. Tupe feed in progress, as ordered.
[2022-02-14] MEDS: IPRATROPIUM BROMIDE 0.5 MG/2.5 ML NEBU NEB SCH ×6 (03:36→23:52)
[2022-02-14] MEDS: ALBUTEROL SULFATE 2.5 MG/3 ML NEBU NEB SCH ×6 (03:36→23:52)
--- NOTE | 2022-02-14 04:30 | NUR ---
prbc completed without adverse reaction. CHAYO Midline flushed and ivf resume as ordered. Breath sound clear in B/L upper lobes and is deminished in the basesis Resp is unlabored. VS wnl. and noted on transfusion flow record. Temp returns to normal 97.3, via Axillary. Removed bear hugger at this time. Steel cath is draining cloudy yellow urine.Pt suctioned copious amount of yellow tenacious secrrtion and tolerated same. BP 109/86, HR 98 RR 19 and O2SAT 99. No s/s of discomfort. Will resume IVF, as ordered. Tube feeding ongoing as ordered. HOB 45 degree. Bed in low position. Pt in no distress.
[2022-02-14 07:01] LABS: HEMATOCRIT 25.9 % (31.2-41.9); MEAN CORPUSCULAR VOLUME 74.8 fL (75.5-95.3); PLATELET COUNT (AUTO) 188 K/uL (179-408)
[2022-02-14 07:16] LABS: BILIRUBIN,TOTAL 0.4 mg/dL (0.2-1.0); CREATININE 4.6 mg/dL (0.6-1.3); TOTAL PROTEIN, SERUM 6.2 g/dL (6.4-8.2)
[2022-02-14 07:20] LABS: PHOSPHOROUS 10.4 mg/dL (2.5-4.9)
[2022-02-14 07:21] LABS: THYROID STIMULATING HORMONE 3.073 mIU/mL (0.358-3.740)
--- NOTE | 2022-02-14 07:30 | NUR ---
Sleeping. Trach to cool mist at 5L. Jevity to GT at 50ml/hr. IVF infusing well. Steel cathetr to drainage bag
[2022-02-14] MEDS: BUDESONIDE 0.5 MG/2 ML NEBU NEB SCH ×2 (07:39→20:08)
[2022-02-14 08:35] LABS: THYROID STIMULATING HORMONE 3.08 mIU/mL (0.358-3.740)
[2022-02-14 09:02] LABS: URIC ACID 10.5 mg/dL (2.6-6.0)
[2022-02-14] MEDS: BACLOFEN 10 MG TABLET GT SCH ×2 (09:26→20:19)
[2022-02-14] MEDS: DOCUSATE SODIUM 100 MG/10 ML LIQUID UDC GT SCH (09:26)
[2022-02-14] MEDS: PANTOPRAZOLE ORAL SUSPENSION 40 MG SUSPDR.PKT GT SCH (09:26)
[2022-02-14] MEDS: ARGININE/GLUTAMINE/CALCIUM BMB 1 EACH POWD.PACK GT SCH ×2 (09:30→17:20)
[2022-02-14] MEDS: NUTRISOURCE FIBER 4 GM PACKET GT SCH ×2 (09:30→20:33)
--- NOTE | 2022-02-14 10:30 | NUR ---
Sponge bath done with wound care done. Repositioned comfortably
[2022-02-14] MEDS ORDERED: REMEDY ESSENTIAL ZINC PASTE 113 GM TOP PRN (10:45)
--- NOTE | 2022-02-14 11:12 | NUR ---
WOUND CARE CONSULT: PT SEEN FOR SACRAL WOUND AND LEFT EAR DRY SCAB, PRESENT ON ADMISSION. RECOMMENDATIONS MADE FOR SKIN PROTECTION AND WOUND CARE. DISCUSSED WITH NURSING STAFF AND SURGICAL TEAM OF DR ZANDER HAMILTON. PT IS ON FIRST STEP LOW AIRLOSS MATTRESS. MD IN AGREEMENT WITH PLAN OF CARE.
[2022-02-14] MEDS: MEROPENEM 500 MG in IV NORMAL SALINE 50 ML IV SCH ×2 (12:25→23:42)
--- NOTE | 2022-02-14 16:09 | NUR ---
MRSA nares result received, Dr. Razo informed with order for Bactroban
[2022-02-14] MEDS: SODIUM HYPOCHLORITE 0.125% (QUARTER STRENGTH) 473 ML BOTTLE TP SCH (17:20)
--- NOTE | 2022-02-14 17:58 | NUR ---
Wound care done with Dakins to sacral wound. Repositioned comfortably.
--- NOTE | 2022-02-14 19:00 | NUR ---
Noted leakage at GT site and residual of 270 ml. GT feedings stopped for now. Endorsed for further care and follow up
[2022-02-14] MEDS: IV D5/ 0.9% NACL 1,000 ML IV PRN (19:30)
[2022-02-14] MEDS: MULTIVIT, IRON, MIN NO. 8, FA TABLET GT SCH (20:19)
[2022-02-14] MEDS: MIRALAX 17 GM POWD.PACK GT SCH (20:19)
[2022-02-14 20:42] LABS: *BILIRUBIN,URIN NEGATIVE (NEGATIVE); *BLOOD, URINE 3+ (NEGATIVE); *CLARITY,URINE SLIGHTLY CLOUDY (CLEAR); *COLOR,URINE YELLOW (YELLOW); *KETONES,URINE NEGATIVE (NEGATIVE); *UROBILINOGEN,URINE 0.2 E.U./dl (NORMAL); LEUKOCYTE ESTERASE ,URINE 2+ (NEGATIVE); NITRITE, URINE NEGATIVE (NEGATIVE); UGLUCOSE NEGATIVE (NEGATIVE)
[2022-02-14 20:43] LABS: *CREATININE,URINE 18.5 mg/dL (30-125); *URINE TOTAL PROTEIN RANDOM 99.8 mg/dL (<150/24HR)
--- NOTE | 2022-02-14 21:31 | NUR ---
Dr Rafi Israel ordered to hold GTF for now till further notice. will cont to monitor.
[2022-02-14] MEDS: REMEDY ESSENTIAL ZINC PASTE 113 GM TOP SCH (21:34)
[2022-02-14] MEDS: MUPIROCIN 2% OINT 22 GM TUBE NS SCH (21:34)
[2022-02-14 22:33] LABS: BACTERIA,URINE MODERATE /HPF (NONE SEEN); SQUAMOUS EPITHELIAL CELL,UR MODERATE /HPF (NONE SEEN)
[2022-02-15 00:24] VITALS: BP 92/56
[2022-02-15] MEDS: ALBUTEROL SULFATE 2.5 MG/3 ML NEBU NEB SCH ×3 (03:46→10:53)
[2022-02-15] MEDS: IPRATROPIUM BROMIDE 0.5 MG/2.5 ML NEBU NEB SCH ×3 (03:46→10:53)
[2022-02-15 04:53] VITALS: BP 112/74
[2022-02-15 06:20] LABS: HEMATOCRIT 23.4 % (31.2-41.9); MEAN CORPUSCULAR HEMOGLOBIN 24.5 uug (24.7-32.8); MEAN CORPUSCULAR VOLUME 73.6 fL (75.5-95.3); PLATELET COUNT (AUTO) 138 K/uL (179-408)
[2022-02-15 06:39] LABS: BILIRUBIN,TOTAL 0.3 mg/dL (0.2-1.0); CREATININE 4.6 mg/dL (0.6-1.3); MAGNESIUM 3.9 mg/dL (1.8-2.4)
[2022-02-15 06:45] LABS: PHOSPHOROUS 10.5 mg/dL (2.5-4.9)
--- NOTE | 2022-02-15 07:04 | NUR ---
Patient latest lab BUN 214, Phos 10.5, Albumin 1.2, notify Gucci Crane, endorsed to next shift.
--- NOTE | 2022-02-15 07:05 | NUR ---
Patient GT draining with greenish yellow fluids, GTF on hold, Dr Mckee was aware, cont to monitor.
[2022-02-15] MEDS: SEVELAMER CARBONATE 800 MG POWD.PACK GT SCH ×2 (07:30→11:30)
[2022-02-15] MEDS: BUDESONIDE 0.5 MG/2 ML NEBU NEB SCH (07:50)
[2022-02-15] MEDS: PANTOPRAZOLE ORAL SUSPENSION 40 MG SUSPDR.PKT GT SCH (09:00)
[2022-02-15] MEDS: NUTRISOURCE FIBER 4 GM PACKET GT SCH (09:00)
[2022-02-15] MEDS: DOCUSATE SODIUM 100 MG/10 ML LIQUID UDC GT SCH (09:00)
[2022-02-15] MEDS: BACLOFEN 10 MG TABLET GT SCH (09:00)
[2022-02-15] MEDS: ARGININE/GLUTAMINE/CALCIUM BMB 1 EACH POWD.PACK GT SCH (09:00)
[2022-02-15] MEDS: REMEDY ESSENTIAL ZINC PASTE 113 GM TOP SCH (09:02)
[2022-02-15] MEDS: MUPIROCIN 2% OINT 22 GM TUBE NS SCH (09:02)
[2022-02-15] MEDS: SODIUM HYPOCHLORITE 0.125% (QUARTER STRENGTH) 473 ML BOTTLE TP SCH (09:02)
--- NOTE | 2022-02-15 09:02 | NUR ---
Pt is nonverbal, no medications or supplement administered due to Gtube malfunction. MD aware, hold Gtube use per MD order until further notice. Will continue to monitor pt.
[2022-02-15 11:34] VITALS: BP 104/64
--- NOTE | 2022-02-15 14:12 | NUR ---
Pt transferred form telemetry to [facility]. Comfort care to be given per family request. All medication orders stopped. Will begin morphine drip starting at 2mg/hr and titrate increase by 1mg / hr up to 10 mg/ hr.
[2022-02-15] MEDS: MORPHINE SULFATE PF IV DRIP 100 MG in IV DEXTROSE 5% 96 ML IV PRN (14:26)
--- NOTE | 2022-02-15 15:48 | NUR ---
Increased morphine drip from 2ml/hr to 3ml/hr. Pt is calm, and nonverbal. Status unchanged. will continue to monitor.
[2022-02-15 16:00] VITALS: BP 90/62
--- NOTE | 2022-02-15 16:41 | NUR ---
increased rate from 3ml/hr to 4ml/hr. will continue to monitor.
--- NOTE | 2022-02-15 17:40 | NUR ---
increased morphine from 4ml/hr to 5ml/hr. Pt status unchanged. New oxygen orders from MD 1L oxygen via mask over trach.
--- NOTE | 2022-02-15 18:47 | NUR ---
increased morphine from 5ml/hr to 6ml/hr. will endorse to poundmaster to increase by 1ml//hr every hour until maximum of 10ml/hr reached for comfort care.
--- NOTE | 2022-02-15 20:08 | NUR ---
Received patient in bed non verbal .Trach in place on 1LPM via mask. Midline on left upper arm patent and intact. Morphine from 6ml/hr increased to 7ml/hr. Will continue to monitor.
[2022-02-15 20:16] VITALS: BP 93/55
--- NOTE | 2022-02-15 20:46 | NUR ---
PATIENT PLACED ON 1L/M VIA TRACH MASK -19:23 , SUCTION PRN, SAT 96%, HR 73 , RR18 . D DINA MANAGER OF MAINTENANCE Addendum: 02/15/22 at 2049 by KRYSTLE ARROYO RT Amended: Links added.
[2022-02-16] MEDS: MORPHINE SULFATE PF IV DRIP 100 MG in IV DEXTROSE 5% 96 ML IV PRN ×3 (03:13→20:44)
[2022-02-16 04:29] VITALS: BP 98/39
--- NOTE | 2022-02-16 06:42 | NUR ---
Patient's pulse weak and thready,shallow breathing. Morphine infusing well at 10ml/hr. F/c in place with small urine output.will Continue comfort measures . Will endorsed to oncoming shift.
--- NOTE | 2022-02-16 07:46 | NUR ---
Pt opens and closes eyes, shallow breaths noted, thready pulse noted. pt is on 1L via mask over trach on comfort measures with morphine drip running at 10mL/hr. Will continue to monitor pt.
--- NOTE | 2022-02-16 11:27 | NUR ---
order obtained for increased morphine maximum 20 ml/hr, titrate by 1 ml/hr until maximum reached for comfort. Increased from 10mL/hr to 11mL/hr. will continue to monitor.
[2022-02-16 12:11] VITALS: BP 94/55
--- NOTE | 2022-02-16 12:35 | NUR ---
increased morphine from 11mL/hr to 12mL/hr. Pt taking delayed single breaths.
--- NOTE | 2022-02-16 13:20 | NUR ---
Increased morphine from 12 to 13mL/hr. will continue to monitor.
--- NOTE | 2022-02-16 14:12 | NUR ---
Increased morphine to 14mL/hr. will continue to monitor. New bag hung.
--- NOTE | 2022-02-16 15:20 | NUR ---
increased morphine from 14ml/hr to 15ml/hr. will continue to monitor.
[2022-02-16 16:12] VITALS: BP 67/25
--- NOTE | 2022-02-16 16:30 | NUR ---
increased morphine to 16mL/ hr. pt continues to have slow eye movement, thready pulse and delayed breaths.
--- NOTE | 2022-02-16 17:35 | NUR ---
INCREASED FROM 16ML TO 17ML/HR. WILL CONTINUE TO MONITOR.
--- NOTE | 2022-02-16 18:35 | NUR ---
INCREASED FROM 17 TO 18ML/HR. WILL ENDORSE TO MAIL CARRIER AND CLERK. PT STILL HAVING DELAYED BREATHS WITH MINIMAL EYE MOVEMENT. SPOKE WITH DAUGHTER IN [place]. WILL ENDORSE TO NEXT SHIFT.
[2022-02-16 20:15] VITALS: BP 60/30
[2022-02-17] MEDS: MORPHINE SULFATE PF IV DRIP 100 MG in IV DEXTROSE 5% 96 ML IV PRN ×5 (01:46→23:26)
--- NOTE | 2022-02-17 02:42 | NUR ---
PATIENT HAS BEEN ON O2 @ 1L/M VIA TRACH MASK, TO FLOW METER, NOT VERY RESPONSIVE, WHEN SUCTIONING, TRACH, SLIGHT WEAK COUGH, PROD, VERY LIGHT PALE TINGE SECRETIONS, SAT 97%, VERY WEAK RESPIRATIONS AND SHALLOW. Jade ARROYO RCP Addendum: 02/17/22 at 0244 by KRYSTLE ARROYO RT Amended: Links added.
[2022-02-17 07:06] LABS: COMPLEMENT, C3 SERUM 115 mg/dL (82-167); COMPLEMENT, C4 SERUM 16 mg/dL (12-38)
[2022-02-17 08:06] LABS: *ANTI-SCLERODERMA-70 AB <0.2 AI (0.0-0.9); *SJOGREN'S ANTI-SS-A <0.2 AI (0.0-0.9); *SJOGREN'S ANTI-SS-B <0.2 AI (0.0-0.9); *SMITH ANTIBODIES <0.2 AI (0.0-0.9); ANTI-DNA(DS) AB, QN <1 IU/mL (0-9); HEPATITIS B SURFACE AG Negative (Negative)
[2022-02-17 09:07] LABS: A/G RATIO 0.4 (0.7-1.7); ALBUMIN 1.6 g/dL (2.9-4.4); ALPHA-1-GLOBULIN 0.5 g/dL (0.0-0.4); ALPHA-2-GLOBULIN 0.8 g/dL (0.4-1.0); BETA GLOBULIN 0.7 g/dL (0.7-1.3); GAMMA GLOBULIN 1.7 g/dL (0.4-1.8); GLOBULIN, TOTAL 3.7 g/dL (2.2-3.9); M-SPIKE Not Observed g/dL (Not Observed)
[2022-02-17] MEDS ORDERED: MORPHINE SULFATE PF IV DRIP 500 MG in IV DEXTROSE 5% 230 ML IV PRN ×2 (10:15→12:00)
[2022-02-17 11:19] VITALS: BP 54/30
--- NOTE | 2022-02-17 20:30 | NUR ---
Noted pt having agonal breathing. Pupils are fixated. On 1LPM via trach mask saturating at 97%. Morphine at 20 ml/hr. Trach and mouth suctioned. Comfort care measures provided.
[2022-02-17] MEDS: LORAZEPAM 2 MG/1 ML VIAL IV PRN (23:55)
--- NOTE | 2022-02-17 23:55 | NUR ---
Ativan 1mg IVP given.Continue on Morphine 10 ml/hr.Continue comfort measures. Addendum: 02/18/22 at 0645 by CARIDAD SINGH RN Correction rate dose: Ativan 1mg IVP given.Continue on Morphine 20 ml/hr.Continue comfort measures.
[2022-02-18] MEDS: LORAZEPAM 2 MG/1 ML VIAL IV PRN ×3 (02:38→06:57)
[2022-02-18] MEDS: MORPHINE SULFATE PF IV DRIP 100 MG in IV DEXTROSE 5% 96 ML IV PRN (04:52)
--- NOTE | 2022-02-18 06:38 | NUR ---
Ativan 1mg IVP given every 2 hours. Morphine at 20 ml/hr. 2 breathes per minute. Continue comfort measures. Will endorse to oncoming shift.
--- NOTE | 2022-02-18 08:00 | NUR ---
RECEIVED PATIENT VERY OBTUNDED NO RESPONSE TO VERBAL AND TACTILE STIMULI, CONTINUE WITH COMFORT MEASURES ORDERED. ON MORPHINE AT 20 MG/H. RR=4, PB=52/40, O2 SAT=96 0N 1L VIA TRACH
--- NOTE | 2022-02-18 10:15 | NUR ---
PATIENT NOTED WITH NO RESPONSE BOTH VERBAL AND TACTILE STIMULI, NO SIGNS OF VITAL SIGNS. PRONOUNCED BY CHARGE NURSE.
--- NOTE | 2022-02-18 10:17 | NUR ---
DR PRISCA DO, WASTEWATER PROCESS ENGINEER, ADMITTING AND SISTER NOTIFIED
--- NOTE | 2022-02-18 11:10 | NUR ---
TRIED TO REACH DAUGHTER SANDIP AND INFORM OF EXPIRATION BUT TO AVAIL. SISTER SANDIP NOTIFIED AND MADE AWARE. HOME ALSO NOTIFIED Addendum: 02/18/22 at 1302 by KRUNAL GALLARDO RN SISTER BRITTNEY NOTIFIED AND TIGIST COOPER
--- NOTE | 2022-02-18 11:30 | NUR ---
POST MORTEM CARE DONE, NO BELONGINGS BUT BRANDEN MAY
--- NOTE | 2022-02-18 12:30 | NUR ---
BODY PICKED UP BY [facility] ( HOME)
== END 2022-02-18 10:15 | DRG 720 ==
LOC: ER 21:29 → UNDOADMIN 02-13 11:05 → CCU 02-13 11:05 → TELE3 02-13 20:15 → MEDSURG3 02-15 13:40 → HOSPICE3 02-15 15:13 → UNDODISIN 02-18 10:15
PROVIDERS: ADMIT Internal Medicine
PROC: 05H633Z Insertion of Infusion Device into Left Subclavian Vein, Percutaneous Approach (ICD-10-PCS; principal; 2022-02-13)
PROC: B547ZZA Ultrasonography of Left Subclavian Vein, Guidance (ICD-10-PCS; principal; 2022-02-13)
PROC: 30233N1 Transfusion of Nonautologous Red Blood Cells into Peripheral Vein, Percutaneous Approach (ICD-10-PCS; 2022-02-14)
DX: A41.9 Sepsis, unspecified organism (principal); N17.0 Acute kidney failure with tubular necrosis; R40.3 Persistent vegetative state; E43 Unspecified severe protein-calorie malnutrition; J96.11 Chronic respiratory failure with hypoxia; K55.9 Vascular disorder of intestine, unspecified; G93.1 Anoxic brain damage, not elsewhere classified; E87.2 Acidosis; R53.2 Functional quadriplegia; R18.8 Other ascites; E83.39 Other disorders of phosphorus metabolism; D64.9 Anemia, unspecified; E11.9 Type 2 diabetes mellitus without complications; E86.0 Dehydration; E87.5 Hyperkalemia; B19.20 Unspecified viral hepatitis C without hepatic coma; E03.9 Hypothyroidism, unspecified; E78.5 Hyperlipidemia, unspecified; E83.41 Hypermagnesemia; E87.1 Hypo-osmolality and hyponatremia; E88.09 Other disorders of plasma-protein metabolism, not elsewhere classified; G40.909 Epilepsy, unspecified, not intractable, without status epilepticus; I48.91 Unspecified atrial fibrillation; R13.10 Dysphagia, unspecified; Z66 Do not resuscitate; Z51.5 Encounter for palliative care; Z87.11 Personal history of peptic ulcer disease; Z86.74 Personal history of sudden cardiac arrest; Z99.11 Dependence on respirator [ventilator] status; Z93.1 Gastrostomy status; K21.9 Gastro-esophageal reflux disease without esophagitis; Z68.29 Body mass index [BMI] 29.0-29.9, adult; N13.2 Hydronephrosis with renal and ureteral calculous obstruction; R21 Rash and other nonspecific skin eruption; S31.000A Unspecified open wound of lower back and pelvis without penetration into retroperitoneum, initial encounter; X58.XXXA Exposure to other specified factors, initial encounter; Y93.9 Activity, unspecified; Y92.129 Unspecified place in nursing home as the place of occurrence of the external cause; C55 Malignant neoplasm of uterus, part unspecified; E87.70 Fluid overload, unspecified; G20 Parkinson's disease; K59.09 Other constipation; Z74.01 Bed confinement status; Z93.0 Tracheostomy status; D50.0 Iron deficiency anemia secondary to blood loss (chronic)
CPT/HCPCS: 36415; 70030-TC; 76770; 82533; 83550; 83605; 83735; 83935; 83970; 84100; 84155; 84156; 84165; 84300; 84443; 84484; 84550; 85025; 85651; 86038; 86160; 86706; 86803; 86850; 86900; 86901; 86920; 87086; 87340; 93005; 93307; 94640; 94664; 99082-TC; A4663; A6209; A6213; G0378; J0610; J1815; J2060; J2185; J2274; J3490; J3590; J7040; J7042; J7050; J7070; P9016